=== PATIENT | female | born 1995 | race Caucasian/White ===

== ENCOUNTER → 2018-01-26 03:13 | Outpatient (CLI) | payer MEDICAID, SELFPAY ==
--- NOTE | 2018-01-26 14:29 | DI.REPORT_ITS ---
SYMPTOMS/DIAGNOSIS: SURVEY; H/O PTL OB ULTRASOUND: Many abnormalities cannot be diagnosed. A normal exam does not exclude a congenital anomaly. Radiology No. [id number] LMP: Exam Date: 01/26/18 [facility] wks days on EDC ([facility]) Confirmed: HISTORY: ---- PREDICTED GESTATIONAL AGE NUMBER 20+2 weeks with a range of 19+2 weeks to 21+2 weeks. 1 Determined by_X__1ST US___LMP___HISTORY PLACENTA PRESENTATION Grade I Cephalic_X__ Anterior_X__Posterior___ Breech____ Right Left Transverse(head right___ Fundal___Low-lying___Previa___ Transverse(head left___ Varying BIOMETRY AMNIOTIC FLUID BPD: 53 mm 22+1 weeks Normal HC: 199 mm 22 weeks AC: 161 mm 21+1 weeks FL: 37mm 21+6 weeks AMNIOTIC FLUID INDEX >26 WK CRL: mm weeks Cisterna Magna: NOT SEEN mm CI: 84 RUQ: LUQ Cerebellum: cm EFW: 435 grams Percentile: 97th RLQ: LLQ Total: cms Composite AGE= 21+6 wks EDC by US: 06/02/18 BIOPHYSICAL PROFILE ANATOMY IDENTIFIED SCORE 0/2 Heart: 4-Chamber_X__Rate:BPM 150 LVOT:____X RVOT:__X Amniotic Fluid(>2cms)____ Stomach:___X____ Kidneys:___X____ Respirations (>30 secs) Bladder:____X____ Post. Fossa: NOT SEEN Body Flex/Extension 3-vessel cord:_X Ventricles:___X Cord insertion:___X__ Lips: NOT SEEN Extremity Flex/Extension Spinal morphology:__X Nose: NOT SEEN Total Score= Palate:__X NS=not seen COMMENTS: Comparison is made with October,. The fetus is in cephalic position. The placenta is anterior. The biometric measurements correspond to 21 weeks 6 days and an EDC of May,. lips, nose and posterior fossa were not well seen. No abnormalities are identified. The cervical length measures 2.9 cm on transvaginal scanning. The os is closed.
== END ==
PROVIDERS: Visit Provider Advanced Practice Midwife
DX: O09.212 Supervision of pregnancy with history of pre-term labor, second trimester (principal)
CPT/HCPCS: 76805

== ENCOUNTER 2018-02-13 01:26 | Outpatient (CLI) | payer MEDICAID, SELFPAY ==
--- NOTE | 2018-02-13 10:53 | DI.US_ITS ---
SYMPTOMS/DIAGNOSIS: F/U TO BETTER VISUALIZE LIPS, NOSE AND POSTERIOR FOSSA, TO COMPLETE SURVEY OB ULTRASOUND: Today's ultrasound was performed utilizing limited protocol to evaluate posterior fossa structures and facial structures not well visualized on recent anomaly screen of 01/26/18. On today's examination these structures are visualized and within normal limits. Many abnormalities cannot be diagnosed. A normal exam does not exclude a congenital anomaly. Radiology No. [id number] LMP: Exam Date: 02/13/18 [facility] wks days on EDC ([facility]) 06/13/18 Confirmed: ---- PREDICTED GESTATIONAL AGE NUMBER 22+6 weeks with a range of 21+6 weeks to 23+6 weeks. 1 Determined by 1STUS X LMP___HISTORY Info. pertaining to fetus # PLACENTA PRESENTATION Grade I Cephalic X Anterior___Posterior___ Breech____ Right Left Transverse(head right___ Fundal___Low-lying___Previa___ Transverse(head left___ Varying BIOMETRY AMNIOTIC FLUID BPD: mm weeks Normal HC: mm weeks AC: mm weeks FL: mm weeks AMNIOTIC FLUID INDEX >26 WK CRL: mm weeks Cisterna Magna: 4 mm CI: RUQ: LUQ Cerebellum: 2.5 cm EFW: grams Percentile RLQ: LLQ Total: cms Composite AGE= wks EDC by US BIOPHYSICAL PROFILE ANATOMY IDENTIFIED SCORE 0/2 Heart: 4-Chamber X Rate: BPM LVOT: RVOT: Amniotic Fluid(>2cms)____ Stomach: X Kidneys: X Respirations (>30 secs) Bladder: X Post. Fossa: Body Flex/Extension 3 vessel cord: Ventricles: cord insertion: Lips: X Extremity Flex/Extension spinal morphology: Nose: X Total Score= Palate: NS=not seen
== END 2018-02-13 01:46 ==
PROVIDERS: Visit Provider Advanced Practice Midwife
DX: Z36.2 Encounter for other antenatal screening follow-up (principal); Z34.82 Encounter for supervision of other normal pregnancy, second trimester
CPT/HCPCS: 76815

== ENCOUNTER 2018-03-23 09:29 | Outpatient (CLI) | payer MEDICAID, SELFPAY ==
[2018-03-23 09:57] LABS: HCT 36.5 % (36.0-46.0); HGB 12.3 g/dL (12.0-15.5); Mean Corp. HGB Concentration 33.7 g/dL (32.0-36.0); Mean Corpuscular Hemoglobin 30.6 pg (27.0-33.0); Mean Corpuscular Volume 90.8 fL (80-95); Mean Platelet Volume 10.9 fL (8.0-11.0); Platelet Count 243 x1000/uL (130-400); RBC 4.02 m/cumm (4.00-5.20); RBC Distribution Width 12.6 % (11.7-14.6); White Blood Cell Count 9.61 k/cumm (4.4-10.8)
[2018-03-23 10:09] LABS: Glucose,1 Hr (Glucola) 123 mg/dL (80-140)
== END 2018-03-23 09:49 ==
PROVIDERS: Advanced Practice Midwife; Visit Provider Advanced Practice Midwife
DX: Z34.92 Encounter for supervision of normal pregnancy, unspecified, second trimester (principal)
CPT/HCPCS: 36415; 82950; 85027

== ENCOUNTER 2018-04-20 00:21 | Outpatient (CLI) | payer MEDICAID, SELFPAY ==
--- NOTE | 2018-04-20 09:24 | DI.US_ITS ---
Many abnormalities cannot be diagnosed. A normal exam does not exclude a congenital anomaly. Radiology No. LMP: 09/06/17 Exam Date: 04/20/18 [facility] wks days on EDC ([facility]) 06/13/18 Confirmed: HISTORY: F/U GROWTH, KARTIK, WT ---- PREDICTED GESTATIONAL AGE NUMBER 32.2 weeks with a range of 31.2 weeks to 33.2 weeks. 1 Determined by_X__1STUS___LMP___HISTORY Info. pertaining to fetus # PLACENTA PRESENTATION Grade I-II Cephalic__X_ Anterior_X_Posterior___ Breech____ Right Left Transverse(head right___ Fundal___Low-lying___Previa___ Transverse(head left___ Varying BIOMETRY AMNIOTIC FLUID BPD: 80 mm 31.6 weeks Normal HC: 291 mm 32.1 weeks AC: 276 mm 31.5 weeks FL: 62 mm 32 weeks AMNIOTIC FLUID INDEX >26 WK CRL: mm weeks Cisterna Magna: mm CI: 87 RUQ:__5.2____LUQ___2.6 Cerebellum: cm EFW: 1852 grams 27 th Percentile RLQ:__3.2___LLQ___4.2____ Total:___15.2____cms Composite AGE= 32 wks EDC by US__06/15/18 BIOPHYSICAL PROFILE ANATOMY IDENTIFIED SCORE 0/2 Heart: 4-Chamber___Rate:BPM___139__ LVOT: RVOT: Amniotic Fluid(>2cms)____ Stomach: Kidneys: Respirations (>30 secs) Bladder: Post. Fossa: Body Flex/Extension 3 vessel cord: Ventricles: cord insertion: Lips:____ Extremity Flex/Extension spinal morphology: Nose: Total Score= Palate: NS=not seen There is a single intrauterine gestation. Estimated sonographic age is 32 weeks. The fetus is in the cephalic presentation. heart rate is 139 beats per minute. A anatomic evaluation was not performed at this time. The placenta is anterior without evidence of previa. The estimated weight is 1852 grams which is the 27th percentile. Amniotic fluid index is 15.2 cm. Visually, amniotic fluid is within normal limits. IMPRESSION: Single living intrauterine gestation. Estimated sonographic age is 32 weeks.
== END 2018-04-20 00:41 ==
PROVIDERS: Visit Provider Advanced Practice Midwife
DX: Z34.93 Encounter for supervision of normal pregnancy, unspecified, third trimester (principal); Z36.2 Encounter for other antenatal screening follow-up
CPT/HCPCS: 76816

== ENCOUNTER 2018-04-25 09:23 | Inpatient (IN) | payer MEDICAID, SELFPAY ==
[2018-04-25 09:37] VITALS: BP 128/88; PULSE 112; RESP 22; TEMP 36.6; O2SAT 96
--- NOTE | 2018-04-25 09:39 | W.ED.GENAD ---
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 She has lower abdominal contractions on exam, no abdominal tenderness, no other complaints, denies vaginal bleeding or d/c. Labor and delivery contacted and pt will go there for further care Differential Diagnosis labor, benita fam HPI General Mode of arrival: wheelchair. Date/Time Provider Initiated Documentation: 04/25/18 09:28. Limitations to Documentation: no limitations. Information obtained by: patient. History of Present Illness 22 year old F presents to the emergency department with the chief complaint of lower abdominal contractions, described as moderate, with intensity rated at 6. Patient started experiencing this hour(s) (3) and it has been intermittent. No relieving factors improve symptom(s), No exacerbating factors reported . Patient notes no other symptoms.. Patient did receive the following treatments prior to arrival, none Related Data Home Medications Medication Instructions Recorded Confirmed acetaminophen 650 mg PO Q4H PRN #60 tab-cap 01/27/16 04/20/18 docusate sodium [Colace] 100 mg PO BID #20 cap 08/24/17 04/20/18 PNV cmb#95-ferrous fumarate-FA 1 tab-cap PO DAILY tab-cap 11/14/17 04/20/18 [ Formula Tablet] fluoxetine 20 mg capsule 20 mg PO DAILY #30 tab-cap 03/16/18 04/20/18 ondansetron 4 mg disintegrating 4 mg PO QID #20 tab 04/06/18 04/20/18 tablet Previous Rx's Medication Instructions Recorded docusate sodium [Colace] 100 mg PO BID #20 cap 08/24/17 fluoxetine 20 mg capsule 20 mg PO DAILY #30 tab-cap 03/16/18 ondansetron 4 mg disintegrating 4 mg PO QID #20 tab 04/06/18 tablet Allergies Allergy/AdvReac Type Severity Reaction Status Date / Time No Known Allergies Allergy Unverified 04/20/18 08:20 Review of Systems Review of Systems All systems reviewed & are unremarkable except as noted in HPI and below Constitutional Denies chills, Denies fever(s) and Denies weakness Eyes Denies loss of vision ENT Denies change in voice Cardiovascular Denies chest pain and Denies dyspnea Respiratory Denies dyspnea Gastrointestinal Denies vomiting Genitourinary Denies dysuria Neurologic Denies loss of vision and Denies weakness Psychiatric Denies depression [facility] Family History Father Diabetes Grandparent No problems noted. Mother Depression Brother No problems noted. Daughter No problems noted. Grandfather Neoplasm Grandmother Diabetes Heart disease Neoplasm Medical History Depression affecting , antepartum Hx of migraines (Resolved) Social History adopted: No number of children: 1 current occupational status: unemployed Smoking/Tobacco Use Status: Current-Occasional alcohol intake: current alcohol intake frequency: other substance use type: marijuana and other details: uses marajuana for back pain 08/27 special willam needs: No Surgical History Patent Ductus Arteriosus closure Tonsillectomy and adenoidectomy Exam Const General: no acute distress Orientation: alert [facility] Head: normal to inspection Ears: external ears normal General nose exam: external nose normal Mouth: moist mucous membranes Eyes General: appearance normal, both eyes and all related structures Neck Neck: normal visual inspection Resp Effort & Inspection: normal respiratory effort and able to speak in complete sentences Cardio Rate: regular rate GI Inspection: no abdominal wall ecchymosis Skin General skin exam: no rashes or lesions noted Neuro General: alert and oriented x3 Extrem General: normal to inspection Psych Mental Status: mental status grossly normal
--- NOTE | 2018-04-25 09:42 | ED.GENADUL_ITS ---
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 She has lower abdominal contractions on exam, no abdominal tenderness, no other complaints, denies vaginal bleeding or d/c. Labor and delivery contacted and pt will go there for further care Differential Diagnosis labor, benita fam HPI General Mode of arrival: wheelchair . Date/Time Provider Initiated Documentation: 04/25/18 09:28 . Limitations to Documentation: no limitations . Information obtained by: patient . History of Present Illness 22 year old F presents to the emergency department with the chief complaint of lower abdominal contractions, described as moderate, with intensity rated at 6. Patient started experiencing this hour(s) (3) and it has been intermittent. No relieving factors improve symptom(s), No exacerbating factors reported . Patient notes no other symptoms.. Patient did receive the following treatments prior to arrival, none Related Data Home Medications Medication Instructions Recorded Confirmed acetaminophen 650 mg PO Q4H PRN #60 tab-cap 01/27/16 04/20/18 docusate sodium [Colace] 100 mg PO BID #20 cap 08/24/17 04/20/18 PNV cmb#95-ferrous fumarate-FA 1 tab-cap PO DAILY tab-cap 11/14/17 04/20/18 [ Formula Tablet] fluoxetine 20 mg capsule 20 mg PO DAILY #30 tab-cap 03/16/18 04/20/18 ondansetron 4 mg disintegrating 4 mg PO QID #20 tab 04/06/18 04/20/18 tablet Previous Rx's Medication Instructions Recorded docusate sodium [Colace] 100 mg PO BID #20 cap 08/24/17 fluoxetine 20 mg capsule 20 mg PO DAILY #30 tab-cap 03/16/18 ondansetron 4 mg disintegrating 4 mg PO QID #20 tab 04/06/18 tablet Allergies Allergy/AdvReac Type Severity Reaction Status Date / Time No Known Allergies Allergy Unverified 04/20/18 08:20 Review of Systems Review of Systems All systems reviewed & are unremarkable except as noted in HPI and below Constitutional Denies chills, Denies fever(s) and Denies weakness Eyes Denies loss of vision ENT Denies change in voice Cardiovascular Denies chest pain and Denies dyspnea Respiratory Denies dyspnea Gastrointestinal Denies vomiting Genitourinary Denies dysuria Neurologic Denies loss of vision and Denies weakness Psychiatric Denies depression [facility] Family History Father Diabetes Grandparent No problems noted. Mother Depression Brother No problems noted. Daughter No problems noted. Grandfather Neoplasm Grandmother Diabetes Heart disease Neoplasm Medical History Depression affecting , antepartum Hx of migraines (Resolved) Social History adopted: No number of children: 1 current occupational status: unemployed Smoking/Tobacco Use Status: Current-Occasional alcohol intake: current alcohol intake frequency: other substance use type: marijuana and other details: uses marajuana for back pain special willam needs: No Surgical History Patent Ductus Arteriosus closure Tonsillectomy and adenoidectomy Exam Const General: no acute distress Orientation: alert [facility] Head: normal to inspection Ears: external ears normal General nose exam: external nose normal Mouth: moist mucous membranes Eyes General: appearance normal, both eyes and all related structures Neck Neck: normal visual inspection Resp Effort & Inspection: normal respiratory effort and able to speak in complete sentences Cardio Rate: regular rate GI Inspection: no abdominal wall ecchymosis Skin General skin exam: no rashes or lesions noted Neuro General: alert and oriented x3 Extrem General: normal to inspection Psych Mental Status: mental status grossly normal
--- NOTE | 2018-04-25 09:43 | NUR.NOTE ---
Pt. transferred to LnD at this time with Nurse Wire Mesh Filter Fabricator.
[2018-04-25] MEDS: Lactated Ringers 1,000 ML 150 ML IV (11:30)
[2018-04-25] MEDS: Betamet Acet/Betamet Na Ph Inj. 30 MG/5 ML 12 MG IM (11:39)
[2018-04-25 11:41] LABS: HCT 36.4 % (36.0-46.0); HGB 12.1 g/dL (12.0-15.5); Mean Corp. HGB Concentration 33.2 g/dL (32.0-36.0); Mean Corpuscular Hemoglobin 29.3 pg (27.0-33.0); Mean Corpuscular Volume 88.1 fL (80-95); Mean Platelet Volume 11.9 fL (8.0-11.0); Platelet Count 207 x1000/uL (130-400); RBC 4.13 m/cumm (4.00-5.20); RBC Distribution Width 12.5 % (11.7-14.6); White Blood Cell Count 10.41 k/cumm (4.4-10.8)
[2018-04-25 15:12] LABS: *AMPHETAMINES SCREEN URINE Negative (Negative); *BARBITURATES SCREEN URINE Negative (Negative); *BENZODIAZEPINES SCREEN URINE Negative (Negative); Cannabinoids THC Negative (Negative); Cocaine Screen,Urine Negative (Negative); METHADONE URINE SCREEN Negative (Negative); OPIATES URINE SCREEN Negative (Negative)
[2018-04-25 15:13] LABS: Tricyclic Antidepressants Negative (Negative)
== END 2018-04-25 15:00 | disposition short-term general hospital (02) | DRG 833 ==
LOC: ER 09:48 → OBS 10:40
PROVIDERS: Admitting Provider Advanced Practice Midwife; Emergency Provider Emergency Medicine; Visit Provider Advanced Practice Midwife
DX: O60.03 Preterm labor without delivery, third trimester (principal); Z3A.31 31 weeks gestation of pregnancy
CPT/HCPCS: 36415; 80307; 85027; 86850; 86900; 86901; 96365; 96366; 96372; 99285; 87081; 99282; G0378; J0702; J2540

== ENCOUNTER 2019-03-04 12:57 | Outpatient (CLI) | payer MEDICAID, SELFPAY ==
[2019-03-04 13:35] LABS: Abs Immature Grans 0.01 k/cumm (0.0-0.09); Absolute Basophil Count 0.01 k/cumm (0.0-0.2); Absolute Eosinophil Count 0.11 k/cumm (0.0-0.7); Absolute Lymphocyte Count 2.06 k/cumm (1.2-3.4); Absolute Monocyte Count 0.36 k/cumm (0.11-0.7); Absolute Neutrophil Count 3.09 k/cumm (1.2-6.7); Basophils % 0.2; HCT 39.5 % (36.0-46.0); Immature Grans % 0.2; Lymphocytes % 36.5; Mean Corp. HGB Concentration 32.9 g/dL (32.0-36.0); Mean Corpuscular Hemoglobin 28.2 pg (27.0-33.0); Mean Corpuscular Volume 85.7 fL (80-95); Mean Platelet Volume 9.9 fL (8.0-11.0); Monocytes % 6.4; Neutrophils % 54.7; Platelet Count 332 x1000/uL (130-400); RBC 4.61 m/cumm (4.00-5.20); RBC Distribution Width 14.9 % (11.7-14.6); White Blood Cell Count 5.64 k/cumm (4.4-10.8)
[2019-03-04 14:36] LABS: ESR 10 mm/hr (0-20)
[2019-03-05 12:10] LABS: Lyme Ab w Rflx to Lyme Confirm Negative
[2019-03-05 12:20] LABS: Syphilis Serology (RPR) Negative (Negative)
== END 2019-03-04 13:17 ==
PROVIDERS: Visit Provider Optometrist
DX: H46.10 Retrobulbar neuritis, unspecified eye (principal)
CPT/HCPCS: 36415; 85652; 85025; 86592; 86618

== ENCOUNTER 2019-12-02 11:44 | Outpatient (REF) | payer MEDICAID, SELFPAY ==
--- NOTE | 2019-12-02 11:00 | PAPFT_PTH ---
PATIENT: Aruna Friedman LOC: N U#:[id number] AGE/SX: 24/F ROOM: RE12/02/[address]: BALJEET Davila : 1995 BED: DIS: 12/02/2019 SPEC #: [id number] RECD: 12/02/19 12:58 STATUS: MARLENY REQ #: [id number] GERALDINE: 12/02/19 11:[address]: Siri Sanz DEPT: [facility] Cytology RECD BY: Yahaira Paulino ENTERED: 12/02/19 12:59 SP TYPE: PAPFT ELIZABETH DR: Tania Leos APRN Tissues: 1 - CX/ENDOCX FOR PAP SMEARS Procedures: PAP THIN PREP/UVM Screening Comments: [id number]
[2019-12-04 07:16] LABS: Chlamydia Result Negative (Negative); GC Result Negative (Negative)
== END 2019-12-02 12:04 ==
LOC: LBN 11:44
PROVIDERS: Visit Provider Nurse Practitioner Family
DX: Z11.3 Encounter for screening for infections with a predominantly sexual mode of transmission (principal); Z12.4 Encounter for screening for malignant neoplasm of cervix
CPT/HCPCS: 87491; 87591; 88142

== ENCOUNTER 2020-12-22 03:59 | Outpatient (CLI) | payer MEDICAID, SELFPAY ==
[2020-12-22 15:39] LABS: Abs Immature Grans 0.04 10^3/uL (0.0-0.06); Absolute Basophil Count 0.02 10^3/uL (0.0-0.2); Absolute Eosinophil Count 0.08 10^3/uL (0.0-0.7); Absolute Lymphocyte Count 2.65 10^3/uL (1.2-3.4); Absolute Monocyte Count 0.54 10^3/uL (0.1-0.8); Absolute Neutrophil Count 6.56 10^3/uL (1.2-6.7); Basophils % 0.2; Eosinophils % 0.8; HCT 38.2 % (36.0-46.0); HGB 12.9 g/dL (11.2-15.7); Immature Grans % 0.4; Lymphocytes % 26.8; MCHC 33.8 % (32.0-36.0); MCV 88.8 fL (80-95); MPV 9.9 fL (8.0-11.0); Monocytes % 5.5; Neutrophils % 66.3; Nucleated RBC 0 %; Platelet Count 285 10^3/uL (130-400); RDW-SD 42.3 fL; WBC 9.89 10^3/uL (4.4-10.8)
[2020-12-22 16:18] LABS: ALT 27 U/L (14-59); AST 13 U/L (15-37); Albumin 3.4 g/dL (3.4-5.0); Alkaline Phosphatase 82 U/L (46-116); Anion Gap 12.5 mmol/L (3-11); BUN 15 mg/dL (7-18); Bilirubin, Total 0.4 mg/dL (0.2-1.0); CO2 23.5 mmol/L (21.0-32.0); CREATININE 0.5 mg/dL (0.55-1.02); Calcium 9.1 mg/dL (8.5-10.1); Chloride 103 mmol/L (98-107); Glucose 83 mg/dL (74-106); Sodium 139 mmol/L (136-145); Total Protein 7.1 g/dL (6.4-8.2)
[2020-12-23 09:24] LABS: Hepatitis B Surface Ag Negative (Negative)
[2020-12-23 09:52] LABS: Hepatitis C Ab w Rflx HCV PCR Negative (Negative)
[2020-12-23 10:07] LABS: Rubella IgG Ab (UVM) Positive (See Note); Varicella IgG Antibody Negative (See Note)
[2020-12-23 10:16] LABS: HIV-1/2 Ag & Ab Screen Negative (Negative)
[2020-12-24 12:08] LABS: Syphilis Total Ab w/Reflex Nonreactive (Nonreactive)
== END 2020-12-22 04:00 | disposition home or self-care (01) ==
PROVIDERS: Advanced Practice Midwife; Visit Provider Advanced Practice Midwife
DX: Z34.91 Encounter for supervision of normal pregnancy, unspecified, first trimester (principal); Z11.4 Encounter for screening for human immunodeficiency virus [HIV]; Z11.59 Encounter for screening for other viral diseases; Z01.84 Encounter for antibody response examination; Z00.00 Encounter for general adult medical examination without abnormal findings; F32.9 Major depressive disorder, single episode, unspecified
CPT/HCPCS: 36415; 80053; 86787; 86803; 86850; 86900; 86901; 87340; 87389; 85025; 86762; 86780

== ENCOUNTER 2020-12-22 20:33 | Outpatient (REF) | payer MEDICAID, SELFPAY ==
[2020-12-22 16:55] LABS: *AMPHETAMINES SCREEN URINE Negative (Negative); *BARBITURATES SCREEN URINE Negative (Negative); *BENZODIAZEPINES SCREEN URINE Negative (Negative); Cannabinoids THC Negative (Negative); Cocaine Screen,Urine Negative (Negative); METHADONE URINE SCREEN Negative (Negative); OPIATES URINE SCREEN Negative (Negative)
[2020-12-22 17:01] LABS: Tricyclic Antidepressants Negative (Negative)
[2020-12-23 15:25] LABS: Chlamydia Result Negative (Negative); GC Result Negative (Negative)
[2020-12-25 09:00] LABS: Buprenorphine Negative ng/mL (Cutoff: 5.0); Norbuprenorphine Negative ng/mL (Cutoff: 2.5)
--- NOTE | 2021-01-28 15:19 | W.NUTCONSULT ---
Date of service: 01/28/21 Time of Service: 15:19 Nutritional Consult ASSESSMENT: Aruna referred for Medical Nutrition Therapy for GDM. She currently takes NPH insulin 4 units Am and PM. She reports fasting sugars in 100s, does not write down. Meal plan erratic, often skips meals, relies on convenience foods. Attempted to provide diet education for GDM management however not successful. Other more pressing issues at this time for her. She is doing well coming to appt.s and taking insulin. Encouraged her to continue. NUTRITIONAL DIAGNOSIS: Gestational Diabetes INTERVENTION: Encouraged well balanced meals with focus on complex carbs, lean protein and healthy fats, regular meal times and log blood sugars. recommend increasing PM insulin. MONITORING AND EVALUATION: will be available prn. Pt has contact information. Time Spent in Nutritional Counseling and Treatment: 10 min
== END 2020-12-22 20:34 | disposition home or self-care (01) ==
LOC: LBN 20:33
PROVIDERS: Visit Provider Advanced Practice Midwife
DX: Z34.91 Encounter for supervision of normal pregnancy, unspecified, first trimester (principal); Z11.3 Encounter for screening for infections with a predominantly sexual mode of transmission; Z3A.10 10 weeks gestation of pregnancy
CPT/HCPCS: 80307; 87491; 87591; 87086; 87480; 87510; 87660

== ENCOUNTER 2021-03-30 13:42 | Outpatient (CLI) | payer MEDICAID, SELFPAY ==
--- NOTE | 2021-03-30 11:00 | NS.NUTBLAN_ITS ---
Aruna was referred to Medical Nutrition Therapy for gestational diabetes diagnosed at 16 weeks. Aruna is 24 weeks today and reports not checking her blood sugars very often. She does report many of her fasting sugars are between 100-200. Aruna takes NPH insulin as prescribed. Her diet remains erratic and she has had difficulty prioritizing healthy eating during this . Weight gain wnl. Met with Aruna today during visit with Dr. Diaz and reviewed benefits of a dexcom 6 continuous glucose monitor for daily blood sugar monitoring. She was agreeable to have one placed today and accepted the data sharing option with [facility]. Dexcom 6 CGM placed, Dexcom 6 merlene installed in Aruna's phone and Aruna accepted invitation to share her glycemic data with publicity writer. Follow up scheduled at next clinic visit next week.
== END 2021-03-30 13:43 | disposition home or self-care (01) ==
LOC: DS 13:46
PROVIDERS: Visit Provider Dietitian, Registered
DX: O24.414 Gestational diabetes mellitus in pregnancy, insulin controlled (principal); Z3A.24 24 weeks gestation of pregnancy; Z71.3 Dietary counseling and surveillance
CPT/HCPCS: 97802

== ENCOUNTER 2021-04-13 07:00 | Outpatient (CLI) | payer MEDICAID, SELFPAY ==
--- NOTE | 2021-04-13 13:00 | NS.NUTBLAN_ITS ---
Met with Aruna at [facility] to replace sensor. Continuous Glucose Monitor reports elevated levels in AM (up to 140 mg/dl). Aruna cannot remember when she had breakfast. Showed Aruna how to add in meal time to glucose reports to include meal time. If fasting sugars > 95 mg/dl, will need to add more insulin at HS. Meals include mostly convenience foods. Shops mostly at [employer] and [employer]. Attempted to provide examples of balanced meals she can purchase at [employer]. Expect that Aruna will have difficulty changing her eating habits to regular blood sugars and most likely will need more insluin going forward BID. Will follow up at next [facility] visit or prn.
== END 2021-04-13 07:01 | disposition home or self-care (01) ==
LOC: DS 04-14 16:04
PROVIDERS: Visit Provider Dietitian, Registered
DX: O24.414 Gestational diabetes mellitus in pregnancy, insulin controlled (principal); Z3A.26 26 weeks gestation of pregnancy; Z71.3 Dietary counseling and surveillance
CPT/HCPCS: 97803

== ENCOUNTER 2021-04-19 03:50 | Outpatient (CLI) | payer MEDICAID, SELFPAY ==
[2021-04-19 14:11] LABS: HGB 11.6 g/dL (11.2-15.7); MCH 29.9 pg (27.0-33.0); MCHC 33.1 % (32.0-36.0); MCV 90.2 fL (80-95); MPV 10.1 fL (8.0-11.0); Platelet Count 281 10^3/uL (130-400); RBC 3.88 10^6/uL (3.93-5.22); RDW 12.6 % (11.7-14.6); RDW-SD 41.4 fL; WBC 13.32 10^3/uL (4.4-10.8)
[2021-04-19 14:25] LABS: Hemoglobin A1C 4.8 % (<5.7)
--- NOTE | 2021-04-29 13:24 | DIABASSESS_ITS ---
Date of service: 04/29/21 Time of Service: 13:25 Diabetes Note NOTE: Met with Aruna at [facility]. She was able to successfully place her Dexcom 6 sensor herself and reattach transmitter. She opted to place it on her thigh- readings appear consistent with upper arm readings. She has not been able to change her eating habits however, glycemic reports indicate blood sugars relatively well controlled. Continues to have high post prandial levels, but most likely due this week from stopping AM NPH. Dr. Miller and self educated Aruna on importance of taking NPH AM and PM as prescribed. Glycemic report for last 7 days scanned into chart. Will continue to follow and support through her . Time Spent in Nutritional Counseling and Treatment: 10
== END 2021-04-19 03:51 | disposition home or self-care (01) ==
LOC: LBO 03:50
PROVIDERS: Obstetrics & Gynecology Gynecology; Visit Provider Obstetrics & Gynecology
DX: O24.414 Gestational diabetes mellitus in pregnancy, insulin controlled (principal)
CPT/HCPCS: 36415; 85027; 83036

== ENCOUNTER 2021-05-03 01:29 | Outpatient (CLI) | payer MEDICAID, SELFPAY ==
--- NOTE | 2021-05-03 07:30 | DI.US_ITS ---
Exam(s) US OB KARTIK WEIGHT EXAM: US OB KARTIK WEIGHT CLINICAL HISTORY: growth in pt with diabetes,Z34.83. TECHNIQUE: Transabdominal obstetrical ultrasound performed. COMPARISON: No exams were available for comparison FINDINGS:: Number of fetuses: One. position: Vertex. Placental location: Posterior. No evidence of previa. BIOMETRIC DATA: BPD: 74mm = 29+ 6 weeks HC: 272mm = 29+ 4 weeks AC: 242mm = 28+ 3 weeks FL: 56 mm = 29+ 3 weeks EFW: 1318 Gms = 23% Composite Age: 29+ 2 EDC: 17 July 2021 Heart Rate: 126 BPM Amniotic fluid index: 14.7 cm. Amount of fluid is within normal limits. IMPRESSION: size and weight are within the expected range. DATA REPOSITORY:
== END 2021-05-03 01:49 ==
PROVIDERS: Visit Provider Obstetrics & Gynecology Gynecology
DX: O24.113 Pre-existing type 2 diabetes mellitus, in pregnancy, third trimester (principal)
CPT/HCPCS: 76816

== ENCOUNTER 2021-05-05 02:23 | Outpatient (CLI) | payer MEDICAID, SELFPAY ==
[2021-05-05 13:44] LABS: HCT 36.6 % (36.0-46.0); MCH 29.8 pg (27.0-33.0); MCHC 32.8 % (32.0-36.0); MCV 90.8 fL (80-95); Platelet Count 326 10^3/uL (130-400); RBC 4.03 10^6/uL (3.93-5.22); RDW 12.5 % (11.7-14.6); RDW-SD 41.5 fL; WBC 13.02 10^3/uL (4.4-10.8)
== END 2021-05-05 02:24 | disposition home or self-care (01) ==
LOC: LBO 02:23
PROVIDERS: Visit Provider Obstetrics & Gynecology Gynecology
DX: O24.414 Gestational diabetes mellitus in pregnancy, insulin controlled (principal)
CPT/HCPCS: 36415; 85027

== ENCOUNTER 2021-05-09 08:11 | Outpatient (CLI) | payer MEDICAID, SELFPAY ==
--- NOTE | 2021-10-28 08:11 | W.OBNST ---
Date of service: 10/28/21 Time of Service: 07:11 NST Evaluation Reason for NST Reasons for Nonstress Test: FALSE LABOR Vital Signs Blood Pressure: 115/77 Pulse: 126 Temperature: 98.6 F NST Information Date on Monitor: 05/09/21 Time on Monitor: 08:58 Date off Monitor: 05/09/21 Time off Monitor: 09:30 Total Time on Monitor: 32 NST Interventions: IV Fluids Contraction Frequency: none NST Evaluation Patient States Movement: Present FHR Baseline: 130 Variability: Moderate 6-25 bpm Accelerations: 10x10 Decelerations: None NST Results: Reactive Note NST Note Note: Pt presented to ED with report of abdominal pain - generalized discomfort. SVE by Dr. Rodrigez performed: VTX, cervix closed, anterior. fibronection obtained and was negative. NST Reviewed and Verified by: So Miller
[2021-10-28 22:05] VITALS: BP 115/77; PULSE 126; TEMP 37
== END 2021-05-09 08:12 | disposition home or self-care (01) ==
PROVIDERS: Visit Provider Advanced Practice Midwife
DX: O60.03 Preterm labor without delivery, third trimester (principal)
CPT/HCPCS: 59025; G0378

== ENCOUNTER 2021-05-09 08:39 | Observation (INO) | payer MEDICAID, SELFPAY ==
[2021-05-09 08:56] VITALS: BP 115/77; PULSE 126; TEMP 37
[2021-05-09] MEDS: Lactated Ringers 1,000 ML 125 ML IV (09:45)
[2021-05-09 11:08] LABS: Bilirubin Negative (Negative); Blood Negative (Negative); Clarity Clear (Clear); Glucose Negative (Negative); Ketones Negative (Negative); Leukocyte Esterase Trace (Negative); Nitrite Negative (Negative); Specific Gravity 1.025 (1.005-1.025); Urobilinogen 0.2 EU/dL (Up TO 0.2)
[2021-05-09 11:10] LABS: Fetal Fibronectin Negative (Negative)
[2021-05-09 11:30] LABS: Epithelial Cells Moderate HPF (Negative); RBC 0-2 HPF (0-2)
[2021-05-09 11:31] LABS: Bacteria Moderate HPF (Negative); C & S Indicated? No/Sq. Contamination; Casts Negative LPF (Negative); Crystals Negative HPF (Negative); Mucus Negative (Negative); Other Cells Rare Renal (Negative)
--- NOTE | 2021-05-12 15:11 | W.PM.OBHPL1 ---
Date of service: 05/09/21 Time of Service: 12:00 Assessment and Plan Assessment and plan (1) History of delivery, currently : Status: Acute Assessment and plan: Pt unlikely to be in labor at this time with closed cervix and negative FFN. However she is an increased risk due to her history and should return to the office this week for f/u. Also reviewed when to call for possible labor. OB-HPI Labor/Delivery History of Present Illness Reason for Visit: CONTRACTIONS Chief Complaint: Other (Pressure). CHRISTIANO Calculator Estimated Delivery Date Method Current WG Current Estimate 07/16/21 LMP (Certain) 30w 5d Other Estimates 07/14/21 Ultrasound #1 31w 0d History of Present Expected Delivery Route/Plan - CNM, @ 12 wks: to service for hx 34 wk PTD x2 & pre-gest DM FOB is unknown. Planned name: Rissa/ Karena. Varicella Non-Immune, vaccine Specific Issues/Plan 1. Impairment of comprehension. Does not have custody of her other children. RADHA involved. Has press cleaner drive her to [employer]. 03/26/21. Moved out of mother's house. Living with dam worker Linda in [place]. Aydee is home health RN. 3. Hx delivery @ 34 wks x2 @ [facility], and hx maternal ductus arteriosis w/surgical repair, 01/12/21 [facility] MFM visit. 02/19/21 cervical length 3.1cm. 03/18/21 cervical length 2.7cm. No additional measurements needed. 4. BV+ at initial OB, Rx Flagyl 500 mg PO BID x7 days 5. Known CF negative, [place] result low prob x3. 02/19/21 [facility]. No f/u needed. 6. Varicella non immune, pt made aware and accepts vaccine 7. Pregestational DM, has CGM. Referal sent to [facility] for assistance with insulin injections (04/21). - 04/07/21. Novolin-N 18units @ [facility]. 14 units @ am. has continuous glucose monitor. - Growth u/s 05/03/21 @ 29w3d: EFW 23%tile. KARTIK 14.7cm. 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) Umbilical abnormality (Acute 06/29/16) Insomnia (Acute 07/25/17) Increased BMI (body mass index) (Chronic 08/24/17) Depressive disorder (Chronic 06/21/13) Chronic midline low back pain without sciatica (Chronic 08/24/17) Attention deficit hyperactivity disorder (Chronic 10/31/12) Medical History (Updated 05/12/21 @ 16:39 by Alma Rodrigez MD) Hx of migraines Maternal varicella, non-immune Surgical History Patent Ductus Arteriosus closure Tonsillectomy and adenoidectomy 2002 Family History Father Diabetes Maternal Grandfather , age 41 Brain cancer Mother Depression Brother , born at 5 months No problems noted. Daughter No problems noted. Paternal Grandfather No problems noted. Maternal Grandmother , age 74 Diabetes Heart disease Cervix cancer Stroke Brain cancer Lymph node cancer Paternal Grandmother No problems noted. Social History Smoking/Tobacco Use Status: Former Tobacco Use tobacco type: cigarettes Quit Date: 11/08/20 Tobacco: How many years used: 9 Quit status: has quit before Second Hand Exposure: Yes Smoking risk assessment performed?: Yes Alcohol Intake: former Counseling provided: provider counseling Details: Occasional binge drinking - counselled Drug use: Never Substance use type: marijuana Adopted: No Household members: family and other Details: lives with mother. Has supervised visitation with her son. No contact daugh Housing: apartment Number of Children: 2 Do you need help understanding health information?: Never current occupation: Disabled. Pets and animals: Yes Pets and animals: dog(s) Sexually active: Yes Do you think of yourself as: straight/heterosexual Current gender identity: female What is your relationship status?: never How often do you talk on the phone with friends or family?: never How often do you get together with friends or relatives?: once per week How often do you attend evangelical or protestant services?: 1-3 times per year Do you belong to any clubs or organized social groups?: no Panel score (0-1 are the most socially isolated patients): 0 Duration: < 15 minutes/day Frequency: 1-2 times per week Evangelina/Jain: No preference Seatbelt use: sometimes Helmet use: No Drive intox or ride w/intox day haul or farm charter bus driver: No Do you feel safe in your relationship?: Yes History History 2 Para 2 Hx # Term Pregnancies 0 Multiple births 0 Hx # Pregnancies 2 Ectopic pregnancies 0 AB induced 0 Hx Number of Living Children 2 AB spontaneous 0 Past Pregnancies Del. Date GA/Weeks # Outcome Route Wgt Sex Labor Lgth Anesthesia Location [facility] 07/20/16 34 Successful vaginal 5 lb 8 oz Female [facility] 05/06/18 34 No Successful vaginal 4 lb 11.8 oz Male [facility] Delivery Date: 07/20/16 PPROM, IOL with Pitocin, pt does not have custody. Tiff Nicolas Delivery Date: 05/06/18 Does not have custody. So Miller Allergies and Home Medications Allergies Allergy/AdvReac Type Severity Reaction Status Date / Time No Known Allergies Allergy Verified 05/05/21 12:44 Home Medications Medication Instructions Recorded Confirmed Type acetaminophen 650 mg PO Q4H PRN #60 tab-cap 01/27/16 05/05/21 History melatonin 3 mg capsule 3 mg PO DAILY PRN #90 cap 11/07/19 05/05/21 Rx hydroxyzine HCl 25 mg tablet 25 mg PO BID PRN #30 tab 09/09/20 05/05/21 Rx loratadine 10 mg tablet 10 mg PO DAILY #90 tab 12/18/20 05/05/21 Rx fluoxetine 20 mg capsule 20 mg PO DAILY #90 cap 12/22/20 05/05/21 Rx fluoxetine 40 mg capsule 40 mg PO DAILY #90 cap 03/05/21 05/05/21 Rx pen needle, diabetic 31 gauge x #100 ea 03/30/21 05/05/21 Rx 1/4 blood-glucose sensor #3 ea 04/08/21 05/05/21 Rx albuterol sulfate 90 mcg/actuation 2 inh INHALATION Q4H PRN #18 g 04/14/21 05/05/21 Rx aerosol inhaler insulin NPH isoph U-100 human 100 See Rx Instructions SUBCUT 04/14/21 05/05/21 Rx unit/mL (3 mL) subcutaneous pen .COMPLEX #15 ml Exam Constitutional Constitutional: no acute distress and cooperative Detailed Labor and Delivery Exam Dilation: 0 Cervix position: anterior Consistency: medium Whyte Score: Cervical Points Exam 0 1 2 3 Dilation Closed 1-2cm 3-4 cm 5-6cm Effacement 0-30% 40-50% 60-70% 80% Consistency Firm Medium Soft Station -3 -2 -1,0 +1,+2 Position Posterior Mid Anterior Amniotic Membrane Status: Intact Contraction Frequency(min): irregular Contraction Intensity: Mild Comments: FFN collected and negative Fetus A Heart Rate Baseline: 140 Monitor Accelerations: 10 X 10 Monitor Decelerations: None Variability: Moderate (6-25 BPM) Detailed HEENT Exam Head: Present normocephalic and atraumatic Respiratory Exam Respiratory Exam: Normal Detailed Neurological Exam Neurological: Present alert, oriented X3 and CN II-XII intact Results Abnormal Lab Findings: Abnormal Labs 05/09/21 10:45 Ur Leukocyte Esterase Trace H Risk Assessment Risk for Shoulder Dystocia Historical/Initial OB: POSITIVE FOR: Pre- BMI>30; NEGATIVE FOR: Pelvic Abnormality, Previous Shoulder Dystocia or Previous Macrosomia Counseling: cannot do early glucola but will do fingerstick, glucometer ordered at initial Risk for Pre-Eclampsia Yes, if one or more: NEGATIVE FOR: Hx Pre-E/Gest HTN, Chronic HTN, Multiple Gestation, Pre-gestational DM, Renal Disease, Systemic Lupus or APA Syndrome Yes, if 2 or more: POSITIVE FOR: BMI>30; NEGATIVE FOR: Nulliparity, Age>= 35 yrs, >10yr btwn pregnancies, ethinicty, Mother/Sister w/ Pre-E or Previous IUGR Risk for Post- Hemorrhage Initial: NEGATIVE FOR: Multiple Gestation, Previous PPH, Known Clotting Deficiency, Grand Multiparity or Anticoagulation Counseled re: Active Management: Yes Risks Reviewed Risks Reviewed Upon Admission: Yes
== END 2021-05-09 13:05 | disposition home or self-care (01) | DRG 833 ==
LOC: ER 08:44 → OBS 08:54
PROVIDERS: Obstetrics & Gynecology; Admitting Provider Advanced Practice Midwife; Emergency Provider Emergency Medicine; Visit Provider Advanced Practice Midwife
DX: O47.03 False labor before 37 completed weeks of gestation, third trimester (principal); O09.213 Supervision of pregnancy with history of pre-term labor, third trimester; Z3A.30 30 weeks gestation of pregnancy
CPT/HCPCS: 81003; 81015; 82731; G0378

== ENCOUNTER 2021-05-18 07:59 | Outpatient (CLI) | payer MEDICAID, SELFPAY ==
[2021-05-18 11:16] VITALS: BP 123/67; PULSE 88; TEMP 37.1
[2021-05-18 11:39] VITALS: BP 123/67; PULSE 88
[2021-05-18] MEDS: Betamet Acet/Betamet Na Ph Inj. 30 MG/5 ML 12 MG IM (12:25)
== END 2021-05-18 12:37 | disposition home or self-care (01) ==
LOC: BCD 08:01 → OBS 11:14
PROVIDERS: Visit Provider Obstetrics & Gynecology Gynecology
DX: O09.893 Supervision of other high risk pregnancies, third trimester (principal); Z87.51 Personal history of pre-term labor
CPT/HCPCS: 96372; 59025; J0702

== ENCOUNTER 2021-05-19 07:40 | Outpatient (CLI) | payer MEDICAID, SELFPAY ==
[2021-05-19 11:15] VITALS: BP 113/73; PULSE 103; RESP 16; TEMP 36.7; O2SAT 95
[2021-05-19] MEDS: Betamet Acet/Betamet Na Ph Inj. 30 MG/5 ML 12 MG IM (11:35)
== END 2021-05-19 07:41 | disposition home or self-care (01) ==
PROVIDERS: Visit Provider Obstetrics & Gynecology
DX: O99.893 Other specified diseases and conditions complicating puerperium (principal); Z87.51 Personal history of pre-term labor
CPT/HCPCS: 96372; J0702

== ENCOUNTER 2021-05-25 05:29 | Outpatient (CLI) | payer MEDICAID, SELFPAY ==
[2021-05-25 11:00] VITALS: BP 135/60; PULSE 121
[2021-05-25 12:23] VITALS: BP 135/60; PULSE 121; TEMP 36.7
[2021-05-25 12:44] LABS: Fetal Fibronectin Negative (Negative)
[2021-05-25 14:09] VITALS: BP 135/60; PULSE 121; TEMP 36.7
--- NOTE | 2021-05-25 15:00 | W.OBNST ---
Date of service: 05/25/21 Time of Service: 15:00 NST Evaluation Reason for NST Reasons for Nonstress Test: GDM-INSULIN Gestational Age Gestational Age in Weeks and Days: 32 Weeks and 4Days Test and Monitor Explained Test/Monitor Explained: Test Explained, Monitor Explained and Patient Verbalized Understanding Vital Signs Blood Pressure: 135/60 Pulse: 121 Temperature: 98.1 F Urine Results Urine Protein: Negative Urine Ketones: Negative Urine Glucose: Negative Urine Blood: Negative NST Information Date on Monitor: 05/25/21 Time on Monitor: 11:52 Date off Monitor: 05/25/21 Time off Monitor: 13:40 Total Time on Monitor: 108 NST Interventions: PO Hydration NST Evaluation Patient States Movement: Present FHR Baseline: 125 Variability: Moderate 6-25 bpm Accelerations: None Decelerations: None NST Results: Non-Reactive Note Biophysical Profile (8:10), KARTIK (12.7) and Presentation (Vertex) NST Note Note: Patient has a nonreactive nonstress test today. Biophysical profile was performed at the bedside confirming 8 out of 10, KARTIK equals 12.7. Fetus is vertex. 2 for tone, 2 for breathing, 2 for movement. As of note, patient was having mild uterine contractions with no cervical change. fibronectin is negative. She will follow-up as scheduled for her next visit and ultrasound. NST Reviewed and Verified by: gilda Vásquez
[2021-05-25 15:02] VITALS: BP 135/60; PULSE 121; TEMP 36.7
== END 2021-05-25 13:51 | disposition home or self-care (01) ==
LOC: BCD 05:31 → OBS 10:52
PROVIDERS: Visit Provider Obstetrics & Gynecology
DX: O24.414 Gestational diabetes mellitus in pregnancy, insulin controlled (principal); Z3A.32 32 weeks gestation of pregnancy
CPT/HCPCS: 59025; 82731; 87081

== ENCOUNTER 2021-05-27 01:57 | Outpatient (CLI) | payer MEDICAID, SELFPAY ==
--- NOTE | 2021-05-27 07:45 | DI.US_ITS ---
Exam(s) US OB KARTIK WEIGHT EXAM: US OB KARTIK WEIGHT CLINICAL HISTORY: growth and wt,gdm requiring insulin,O24.419. TECHNIQUE: Transabdominal obstetrical ultrasound was performed. COMPARISON: US US OB KARTIK WEIGHT from 05/03/2021 FINDINGS: There is a single viable intrauterine gestation with cardiac activity identified-132 bpm The fetus is presently in cephalic position . Amniotic fluid: There is a normal amount of amniotic fluid with an KARTIK of 18.0cm. Placental location: The placenta is posterior grade 1,with no evidence of placenta previa. Dating parameters place this at approximately 32 weeks and 2 days gestational age, implying CHRISTIANO of July 20, 2021. BPD measures 33 weeks and 3 days HC measures 32 weeks and 2 days AC measures 32 weeks and 0 days FL measures 31 weeks and 4 days Estimated weight is 1886 gm-4 pounds 3 ounces Fetus is at the 18th percentile on the Hadlock scale. IMPRESSION:: Viable 3rd trimester gestation, as described above. Fetus is at the 18th percentile on the Hadlock scale. Placenta is posterior. No placenta previa. There is a normal amount of amniotic fluid evident. DATA REPOSITORY:
== END 2021-05-27 02:17 ==
PROVIDERS: Visit Provider Obstetrics & Gynecology Gynecology
DX: O24.414 Gestational diabetes mellitus in pregnancy, insulin controlled (principal); Z3A.32 32 weeks gestation of pregnancy
CPT/HCPCS: 76816

== ENCOUNTER 2021-05-28 08:30 | Outpatient (CLI) | payer MEDICAID, SELFPAY | END 2021-05-28 08:31 | disposition home or self-care (01) | LOC: BCD 08:31 | PROVIDERS: Visit Provider Obstetrics & Gynecology | DX: Z53.8 Procedure and treatment not carried out for other reasons (principal) ==

== ENCOUNTER 2021-06-01 09:30 | Outpatient (CLI) | payer MEDICAID, SELFPAY ==
[2021-06-01 11:14] VITALS: BP 109/68; PULSE 93; TEMP 36.8
[2021-06-01 11:17] VITALS: BP 109/68; PULSE 93
--- NOTE | 2021-06-01 12:21 | W.OBNST ---
Date of service: 06/01/21 Time of Service: 12:21 NST Evaluation Reason for NST Reasons for Nonstress Test: GDM-INSULIN Gestational Age Gestational Age in Weeks and Days: 33 Weeks and 4Days Test and Monitor Explained Test/Monitor Explained: Test Explained, Monitor Explained and Patient Verbalized Understanding Vital Signs Blood Pressure: 109/68 Pulse: 93 Temperature: 98.2 F NST Information Date on Monitor: 06/01/21 Time on Monitor: 11:10 Date off Monitor: 06/01/21 Time off Monitor: 11:35 Total Time on Monitor: 25 NST Interventions: PO Hydration NST Evaluation Patient States Movement: Present FHR Baseline: 140 Variability: Moderate 6-25 bpm NST Results: Non-Reactive Note Biophysical Profile (NST with moderate variability, nonreactive due to lack of accelerations) Results of Biophysical Profile: 8 out of 10. Tone=2. Movement= 2. Breathing= 2. KARTIK= 2. Total amniotic fluid index is 14.4. NST Note Note: Patient seen on the center for surveillance. Moderate variability. No appropriate accelerations. Baby audibly active. Occasional irregular contractions. Bedside biophysical profile performed with a biophysical of 8 out of 10. Cervical exam at patient's request, 1 cm, 50%, -3 station. Will have nonstress test performed Monday. NST Reviewed and Verified by: Candida Vásquez
[2021-06-01 12:23] VITALS: BP 109/68; PULSE 93; TEMP 36.8
== END 2021-06-01 11:56 | disposition home or self-care (01) ==
LOC: BCD 09:32 → OBS 11:14
PROVIDERS: Visit Provider Obstetrics & Gynecology
DX: O24.414 Gestational diabetes mellitus in pregnancy, insulin controlled (principal); Z3A.33 33 weeks gestation of pregnancy; Z36.89 Encounter for other specified antenatal screening
CPT/HCPCS: 59025

== ENCOUNTER 2021-06-03 08:31 | Observation (INO) | payer MEDICAID, SELFPAY ==
[2021-06-03 08:33] VITALS: BP 119/77; PULSE 110; RESP 16; TEMP 36.8
[2021-06-03 08:38] VITALS: BP 119/77; PULSE 110
[2021-06-03] MEDS: Insulin NPH-Human 300 UNITS/3 ML PEN 14 UNIT SC (09:38)
--- NOTE | 2021-06-03 10:56 | W.PM.DS.N ---
Date of service: 06/03/21 Time of Service: 10:56 DS: Diagnosis Discharge Diagnosis (1) History of delivery, currently : Status: Acute (2) Encounter for supervision of other normal , third trimester: Status: Acute (3) Discomfort during : Status: Acute (4) Gestational diabetes: Status: Acute Discharge Plan Disposition Patient Disposition: HOME Condition: Fair Discharge Details Reason For Visit: R/O LABOR Admit Date/Time: 06/03/21 08:31 Admit Provider: So Miller Attending Provider: So Miller Primary Care Provider: Tania Leos Hospital Course Hospital Course: Patient is currently 33w6d EGA and has been seen twice weekly for NSTs secondary to insulin requiring gestational diabetes. She woke this morning feeling pressure and constant pain in her vagina and requested an evaluation. Upon arrival to the center her cervical exam was fingertip dilated 75% effaced soft mid position 0 station vertex. Patient was having occasional contractions on external tocometer and was feeling significant discomfort with movement. NST was reactive category 1 tracing. Preprandial capillary blood glucose was 90. Postprandial 1 hour glucose is pending. She received 14 units of Novolin-N for her standard morning insulin dose. After 2 hours of observation cervical exam had not changed there was some bloody discharge on my exam glove I felt it was secondary to my previous exam. She was given discharge instructions and told to call the office in the event of change in contractions. She will follow-up on 06/07/2021 for a repeat NST. Home Meds and New Rx's Prescriptions: No Action fluoxetine 20 mg capsule 20 mg PO DAILY Qty: 90 RF: 3 (DME) Dexcom G6 Sensor Device See Rx Instructions .ROUTE .MEDSUPPLY Qty: 3 RF: 3 albuterol sulfate 90 mcg/actuation HFA aerosol inhaler 2 inh inhalation Q4H PRN (Reason: shortness of breath or wheezing) Qty: 18 RF: 0 Novolin N Flexpen 100 unit/mL (3 mL) insulin pen See Rx Instructions subcut .COMPLEX Qty: 15 RF: 4 melatonin 3 mg capsule 3 mg PO DAILY PRN (Reason: sleep) Qty: 90 RF: 6 Hold Instructions: Home Medication placed on hold at Doctor's office (DME) pen needle, diabetic [Lite Touch Insulin Pen [place]] 31 gauge x 1/4 needle See Rx Instructions .ROUTE .MEDSUPPLY Qty: 100 RF: 5 acetaminophen 325 MG tablet 650 mg PO Q4H PRN Qty: 60 RF: 2 hydroxyzine HCl 25 mg tablet 25 mg PO BID PRN (Reason: anxiety) Qty: 30 RF: 0 loratadine [Allergy Relief (loratadine)] 10 mg tablet 10 mg PO DAILY Qty: 90 RF: 4 fluoxetine 40 mg capsule 40 mg PO DAILY Qty: 90 RF: 3 Discharge Instructions Additional Instructions: Go home and rest. Return to the center on 06/07/2021 at a time that is given to you. If you have rupture of membranes or painful contractions every 5 minutes four one hour please call the office. Activity:: Activity as Tolerated Equipment/Supplies:: No Equipment Needed Diet:: As Tolerated Discharge Orders Discharge Orders: Discharge Order (Routine); Ordered 06/03/21 Ordered By: So Miller Discharge Data Discharge Date/Time-TO BE ENTERED AT DEPARTURE: 06/03/21 11:10 DS: Summary Time Spent with Patient providing and/or coordinating discharge services: Less than 30 minutes Status at Discharge Functional status at discharge: independent ambulation Overall status at discharge: patient is back to baseline Mental Status: mental status grossly normal Speech and Movement: agitated (Uncomfortable with contractions and pelvic pressure) Mood: labile mood (Would really like to be finished with ) Affect: labile affect Exam Narrative Exam Narrative: No change in cervical exam in the interval she was here. Manual OB Exam: dilated fingertip, effaced 75% and station -1 Amniotic Fluid: no fluid Other: Reactive NST. Psych Mental Status: mental status grossly normal Speech and Movement: agitated (Uncomfortable with contractions and pelvic pressure) Mood: labile mood (Would really like to be finished with ) Affect: labile affect Attitude: cooperative Insight: limited Judgment: limited DS: Data Vitals/I&O Vitals and I&O: Vital Signs Temperature 98.2 F 06/03/21 08:33 Pulse 110 H 06/03/21 08:38 Pulse Rhythm Regular 06/03/21 08:33 Respiratory Rate 16 06/03/21 08:33 Blood Pressure 119/77 06/03/21 08:38 Oxygen Delivery Method Room Air 06/03/21 08:33 Oxygen Flow Rate 0 06/03/21 08:33 Pain Level 10 06/03/21 08:33 Intake & Output 06/02/21 06/02/21 06/03/21 11:59 23:59 11:59 Weight 205 lb PFSH All Active Problems (Updated 06/03/21 @ 10:57 by So Miller MD) Discomfort during (Acute) Encounter for supervision of other normal , third trimester (Acute) History of delivery, currently (Acute) Gestational diabetes (Acute) (Acute) Panic (Acute) Anxiety (Chronic) Elevated BP without diagnosis of hypertension (Acute) Discomfort of right ear (Acute) 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 Has case management assistant Iona Bansal. Umbilical abnormality (Acute 06/29/16) Insomnia (Acute 07/25/17) Increased BMI (body mass index) (Chronic 08/24/17) Depressive disorder (Chronic 06/21/13) Psychiatric consult 02/23 Chronic midline low back pain without sciatica (Chronic 08/24/17) Attention deficit hyperactivity disorder (Chronic 10/31/12) Medical History Hx of migraines Maternal varicella, non-immune Surgical History Patent Ductus Arteriosus closure Tonsillectomy and adenoidectomy 2002 Family History Father Diabetes Maternal Grandfather , age 41 Brain cancer Mother Depression Brother , born at 5 months No problems noted. Daughter No problems noted. Paternal Grandfather No problems noted. Maternal Grandmother , age 74 Diabetes Heart disease Cervix cancer Stroke Brain cancer Lymph node cancer Paternal Grandmother No problems noted. Social History Smoking/Tobacco Use Status: Former Tobacco Use tobacco type: cigarettes Quit Date: 11/08/20 Tobacco: How many years used: 9 Quit status: has quit before Second Hand Exposure: Yes Smoking risk assessment performed?: Yes Alcohol Intake: former Counseling provided: provider counseling Details: Occasional binge drinking - counselled Drug use: Never Substance use type: marijuana Adopted: No Household members: family and other Details: lives with mother. Has supervised visitation with her son. No contact daugh Housing: apartment Number of Children: 2 Do you need help understanding health information?: Never current occupation: Disabled. Pets and animals: Yes Pets and animals: dog(s) Sexually active: Yes Do you think of yourself as: straight/heterosexual Current gender identity: female What is your relationship status?: never How often do you talk on the phone with friends or family?: never How often do you get together with friends or relatives?: once per week How often do you attend mosque or samaritan services?: 1-3 times per year Do you belong to any clubs or organized social groups?: no Panel score (0-1 are the most socially isolated patients): 0 Duration: < 15 minutes/day Frequency: 1-2 times per week Evangelina/Mosque: No preference Seatbelt use: sometimes Helmet use: No Drive intox or ride w/intox rail car driver: No Do you feel safe in your relationship?: Yes History History 2 Para 2 Hx # Term Pregnancies 0 Multiple births 0 Hx # Pregnancies 2 Ectopic pregnancies 0 AB induced 0 Hx Number of Living Children 2 AB spontaneous 0 Past Pregnancies Del. Date GA/Weeks # Outcome Route Wgt Sex Labor Lgth Anesthesia Location Prov Complic 07/20/16 34 Successful vaginal 5 lb 8 oz Female [facility] 05/06/18 34 No Successful vaginal 4 lb 11.8 oz Male [facility] Delivery Date: 07/20/16 PPROM, IOL with Pitocin, pt does not have custody. Tiff Nicolas Delivery Date: 05/06/18 Does not have custody. So Miller
--- NOTE | 2021-06-03 18:14 | W.OBNST ---
Date of service: 06/03/21 Time of Service: 11:14 NST Evaluation Reason for NST Reasons for Nonstress Test: GDM-INSULIN and FALSE LABOR Gestational Age Gestational Age in Weeks and Days: 33 Weeks and 6Days Test and Monitor Explained Test/Monitor Explained: Test Explained, Monitor Explained and Patient Verbalized Understanding NST Information Date on Monitor: 06/03/21 Time on Monitor: 08:17 Date off Monitor: 06/03/21 NST Interventions: None and Meal Given Contraction Frequency: irreg NST Evaluation Patient States Movement: Present FHR Baseline: 140 Variability: Moderate 6-25 bpm Accelerations: 15x15 Decelerations: None NST Results: Reactive Note Presentation (vertex) NST Note Note: Patient presented to center with complaints of vaginal pain. No loss of vaginal fluid. She was observed on the center for approximately 2 hours her blood glucose prior to her meal was 95 and she was given her 14 units of Novolin N for her a.m. dose of insulin. There is no cervical change during the interval she was on the center. She was counseled that she may in fact not go into labor at 34 weeks as she has expected and make continue to remain . She will follow-up on 06/07/2021 for a repeat NST on the center. NST Reviewed and Verified by: So Miller
== END 2021-06-03 11:10 | disposition home or self-care (01) ==
PROVIDERS: Admitting Provider Obstetrics & Gynecology Gynecology; Visit Provider Obstetrics & Gynecology Gynecology
DX: O26.893 Other specified pregnancy related conditions, third trimester (principal); O24.414 Gestational diabetes mellitus in pregnancy, insulin controlled; Z3A.33 33 weeks gestation of pregnancy
CPT/HCPCS: G0378

== ENCOUNTER 2021-06-04 16:25 | Observation (INO) | payer MEDICAID, SELFPAY ==
[2021-06-04 16:35] VITALS: BP 123/74; PULSE 91; RESP 16; TEMP 36.9
== END 2021-06-04 18:30 | disposition home or self-care (01) ==
PROVIDERS: Admitting Provider Obstetrics & Gynecology; Visit Provider Obstetrics & Gynecology
DX: O47.03 False labor before 37 completed weeks of gestation, third trimester (principal)
CPT/HCPCS: G0378

== ENCOUNTER 2021-06-07 07:21 | Outpatient (CLI) | payer MEDICAID, SELFPAY ==
[2021-06-07 11:11] VITALS: BP 114/69; PULSE 97; TEMP 36.8
--- NOTE | 2021-06-07 12:22 | W.DIABETESNO ---
Date of service: 06/07/21 Time of Service: 12:22 Diabetes Note NOTE: Met with Aruna at [facility] today during a NST. She is 37 weeks and expected to give already. Aruna has GDM, takes 14 units NPH am, 18 units NPH at hs. She wears a Dexcom 6 continuous glucose monitor that is remotely connected to [facility]. Ambulatory Glucose Profile (scanned into [employer]) indicates blood sugars in range > 85% of time, fasting sugars are < 95mg/dl with some glycemic excursions ( 90-105 mg/dl). Aruna is preoccupied with NST and phone calls and unable to discuss meals she has been having. Overall, it appears that she is taking insulin as prescribed and managing GDM well at this time. Will follow prn. Time Spent in Nutritional Counseling and Treatment: 20
--- NOTE | 2021-06-07 14:47 | W.OBNST ---
Date of service: 06/07/21 Time of Service: 11:48 NST Evaluation Reason for NST Reasons for Nonstress Test: GDM-INSULIN Gestational Age Gestational Age in Weeks and Days: 34 Weeks and 3Days Test and Monitor Explained Test/Monitor Explained: Test Explained, Monitor Explained and Patient Verbalized Understanding Vital Signs Blood Pressure: 114/69 Pulse: 97 Temperature: 98.2 F NST Information Date on Monitor: 06/07/21 Time on Monitor: 11:05 Date off Monitor: 06/07/21 Time off Monitor: 12:24 Total Time on Monitor: 79 NST Interventions: PO Hydration NST Evaluation Patient States Movement: Present FHR Baseline: 140 Variability: Moderate 6-25 bpm Accelerations: 15x15 and 10x10 NST Results: Reactive Note NST Note Note: Pt here at 34.3wks for NST for GDM. It is appropriate. No change in discomforts. NST Reviewed and Verified by: Alma Rodrigez
[2021-06-07 14:48] VITALS: BP 114/69; PULSE 97; TEMP 36.8
== END 2021-06-07 11:30 | disposition home or self-care (01) ==
LOC: BCD 07:23 → OBS 11:09
PROVIDERS: Visit Provider Obstetrics & Gynecology
DX: O24.414 Gestational diabetes mellitus in pregnancy, insulin controlled (principal); Z3A.34 34 weeks gestation of pregnancy
CPT/HCPCS: 59025

== ENCOUNTER 2021-06-08 14:12 | Outpatient (CLI) | payer MEDICAID, SELFPAY ==
[2021-06-08 14:35] VITALS: BP 137/66; PULSE 104; TEMP 36.8
[2021-06-08 14:38] VITALS: BP 137/66; PULSE 104
--- NOTE | 2021-06-08 15:31 | W.OBNST ---
Date of service: 06/08/21 Time of Service: 15:31 NST Evaluation Reason for NST Reasons for Nonstress Test: OTHER, SEE COMMENT Reason for NST Other: Patient states contractions started at 14:00 Gestational Age Gestational Age in Weeks and Days: 34 Weeks and 4Days Test and Monitor Explained Test/Monitor Explained: Test Explained, Monitor Explained and Patient Verbalized Understanding Vital Signs Blood Pressure: 137/66 Pulse: 104 Temperature: 98.2 F NST Information Date on Monitor: 06/08/21 Time on Monitor: 14:30 Date off Monitor: 06/08/21 Time off Monitor: 15:03 Total Time on Monitor: 33 NST Interventions: PO Hydration NST Evaluation Patient States Movement: Present FHR Baseline: 135 Variability: Moderate 6-25 bpm Accelerations: 10x10 Decelerations: None NST Results: Reactive Note NST Note Note: Patient is seen and examined on the center for nonstress test. She called the office with complaints of uterine contractions that were significantly painful. She has a category 1, reactive nonstress test without palpable contractions. Cervical exam performed with unchanged cervix at 1 cm, 75% effaced, -2 station. Labor was discussed with the patient. She will be seen for her repeat nonstress test on as scheduled. Glucose monitoring has been status. NST Reviewed and Verified by: Candida Vásquez
[2021-06-08 15:32] VITALS: BP 137/66; PULSE 104; TEMP 36.8
== END 2021-06-08 15:10 | disposition home or self-care (01) ==
LOC: BCD 14:13 → OBS 14:32
PROVIDERS: Visit Provider Obstetrics & Gynecology
DX: O60.03 Preterm labor without delivery, third trimester (principal); Z3A.34 34 weeks gestation of pregnancy
CPT/HCPCS: 59025

== ENCOUNTER 2021-06-11 08:39 | Outpatient (CLI) | payer MEDICAID, SELFPAY ==
[2021-06-11 11:10] VITALS: BP 133/84; PULSE 98; TEMP 36.6
[2021-06-11 11:34] VITALS: BP 133/84; PULSE 98
--- NOTE | 2021-06-11 12:04 | W.OBNST ---
Date of service: 10/28/21 Time of Service: 21:24 NST Evaluation Reason for NST Reasons for Nonstress Test: GDM-INSULIN Gestational Age Gestational Age in Weeks and Days: 35 Weeks and 0Days Test and Monitor Explained Test/Monitor Explained: Test Explained, Monitor Explained and Patient Verbalized Understanding Vital Signs Blood Pressure: 133/84 Pulse: 98 Temperature: 97.9 F NST Information Date on Monitor: 06/11/21 Time on Monitor: 11:13 Date off Monitor: 06/11/21 Time off Monitor: 12:00 Total Time on Monitor: 47 NST Interventions: None Contraction Frequency: none NST Evaluation Patient States Movement: Present FHR Baseline: 125 Variability: Moderate 6-25 bpm Accelerations: 15x15 Decelerations: None NST Results: Reactive Note NST Note Note: I reviewed pt's glycemic control-satisfactory with current insulin regime. Will continue twice weekly NSTs NST Reviewed and Verified by: So Miller
[2021-10-28 22:28] VITALS: BP 133/84; PULSE 98; TEMP 36.6
== END 2021-06-11 12:00 | disposition home or self-care (01) ==
LOC: BCD 08:40 → OBS 11:08
PROVIDERS: Visit Provider Obstetrics & Gynecology Gynecology
DX: O24.414 Gestational diabetes mellitus in pregnancy, insulin controlled (principal); Z3A.35 35 weeks gestation of pregnancy
CPT/HCPCS: 59025

== ENCOUNTER 2021-06-15 07:06 | Outpatient (CLI) | payer MEDICAID, SELFPAY ==
[2021-06-15 11:37] VITALS: BP 111/78; PULSE 96; TEMP 37
[2021-06-15 11:59] VITALS: BP 111/78; PULSE 96
--- NOTE | 2021-06-21 09:37 | W.OBNST ---
Date of service: 06/21/21 Time of Service: 09:37 NST Evaluation Reason for NST Reasons for Nonstress Test: GDM-INSULIN Gestational Age Gestational Age in Weeks and Days: 36 Weeks and 0Days Vital Signs Blood Pressure: 111/78 Pulse: 96 Temperature: 98.6 F NST Information Date on Monitor: 06/15/21 Time on Monitor: 11:43 Date off Monitor: 06/15/21 Time off Monitor: 12:25 Total Time on Monitor: 42 NST Interventions: PO Hydration NST Evaluation Patient States Movement: Present FHR Baseline: 135 Variability: Moderate 6-25 bpm Accelerations: 15x15 Decelerations: None NST Results: Reactive Note NST Note Note: I had a conversation with the patient regarding plans for disposition of infant after delivery. She is aware that DCF is involved and her infant will be placed into foster care and that she will not be discharged home with her infant. Plan at this time is obtain a group B strep rectovaginal test and to continue twice weekly NSTs. NST Reviewed and Verified by: So Miller
[2021-06-21 09:38] VITALS: BP 111/78; PULSE 96; TEMP 37
--- NOTE | 2021-06-27 12:40 | W.OBNST ---
Date of service: 06/27/21 Time of Service: 12:41 NST Evaluation Reason for NST Reasons for Nonstress Test: GDM-INSULIN Gestational Age Gestational Age in Weeks and Days: 37 Weeks and 0Days Vital Signs Blood Pressure: 111/78 Pulse: 96 Temperature: 98.6 F NST Information Date on Monitor: 06/15/21 Time on Monitor: 11:43 Date off Monitor: 06/15/21 Time off Monitor: 12:25 Total Time on Monitor: 42 NST Interventions: PO Hydration NST Evaluation Patient States Movement: Present FHR Baseline: 135 Variability: Moderate 6-25 bpm Accelerations: 15x15 Decelerations: None NST Results: Reactive Note NST Note Note: Patient seen on center in place of [facility] office visit. GBS RV CX obtained. Patient continues with episodic contractions since multiple somatic complaints. She will continue with twice weekly surveillance. NST Reviewed and Verified by: So Miller
[2021-06-27 12:41] VITALS: BP 111/78; PULSE 96; TEMP 37
== END 2021-06-15 12:25 | disposition home or self-care (01) ==
LOC: BCD 07:11 → OBS 11:36
PROVIDERS: Visit Provider Obstetrics & Gynecology
DX: O24.414 Gestational diabetes mellitus in pregnancy, insulin controlled (principal); Z3A.36 36 weeks gestation of pregnancy; Z36.85 Encounter for antenatal screening for Streptococcus B
CPT/HCPCS: 59025; 87081

== ENCOUNTER 2021-06-15 12:18 | Outpatient (CLI) | payer MEDICAID, SELFPAY ==
--- NOTE | 2021-06-15 10:00 | NS.NUTBLAN_ITS ---
Aruna returns for nutrition counseling for gestational diabetes. She is 36 weeks and has been taking 14 u NPH AM and 18 u NPH PM. She uses a Dexcom 6 continues glucose monitor. Ambulatory Glucose Profile scanned into chart. Average blood sugar: 105 mg/dl, 97.7% Time In Range (70-180), no hyper glycemia (>180), however had 2.3% hypglycemia (< 70 mg). GDM well controlled at this time with diet and insulin. Aruna is unable to engage in counseling today. Praised Aruna in her continued effort in managing her GDM. She continues to be compliant in insulin administration and managing her continuous glucose monitor and keeping her blood sugars in range. I attempted to discuss causes of her hypoglycemia on 06/04/21 (went down to 42mg/dl) however, she could not remember. She most likely didn't eat and took her insulin. Reviewed importance of not taking insulin if not eating for > 12 hours. Discussed case with MD. No change in insulin dosage at this time in view of hypoglcyemia in past week. will follow up prn.
== END 2021-06-15 12:19 | disposition home or self-care (01) ==
LOC: DS 12:19
PROVIDERS: Visit Provider Dietitian, Registered
DX: O24.414 Gestational diabetes mellitus in pregnancy, insulin controlled (principal); Z3A.36 36 weeks gestation of pregnancy; Z71.3 Dietary counseling and surveillance
CPT/HCPCS: 97803

== ENCOUNTER 2021-06-18 10:24 | Outpatient (CLI) | payer MEDICAID, SELFPAY ==
[2021-06-18 11:26] VITALS: BP 117/71; PULSE 103; TEMP 37
[2021-06-18 11:36] VITALS: BP 117/71; PULSE 103
--- NOTE | 2021-06-18 13:05 | W.OBNST ---
Date of service: 06/18/21 Time of Service: 11:49 NST Evaluation Reason for NST Reasons for Nonstress Test: GDM-INSULIN Gestational Age Gestational Age in Weeks and Days: 36 Weeks and 0Days Test and Monitor Explained Test/Monitor Explained: Test Explained, Monitor Explained and Patient Verbalized Understanding Vital Signs Blood Pressure: 117/71 Pulse: 103 Temperature: 98.6 F NST Information Date on Monitor: 06/18/21 Time on Monitor: 11:31 Date off Monitor: 06/18/21 Time off Monitor: 12:03 Total Time on Monitor: 32 NST Interventions: PO Hydration NST Evaluation Patient States Movement: Present FHR Baseline: 130 Variability: Moderate 6-25 bpm Accelerations: 15x15 Decelerations: None NST Results: Reactive Note NST Note Note: 36wks with GDM. No new complaints. Return next week, will schedule growth sono. NST Reviewed and Verified by: Alma Rodrigez
[2021-06-18 13:06] VITALS: BP 117/71; PULSE 103; TEMP 37
== END 2021-06-18 12:05 | disposition home or self-care (01) ==
LOC: BCD 10:25 → OBS 11:25
PROVIDERS: Visit Provider Obstetrics & Gynecology
DX: O24.414 Gestational diabetes mellitus in pregnancy, insulin controlled (principal); Z3A.36 36 weeks gestation of pregnancy
CPT/HCPCS: 59025

== ENCOUNTER 2021-06-22 08:26 | Outpatient (CLI) | payer MEDICAID, SELFPAY ==
[2021-06-22 11:04] VITALS: BP 119/70; PULSE 91; TEMP 36.8
[2021-06-22 11:05] VITALS: BP 119/70; PULSE 91; TEMP 36.8
--- NOTE | 2021-06-22 12:28 | W.OBNST ---
Date of service: 06/22/21 Time of Service: 12:29 NST Evaluation Reason for NST Reasons for Nonstress Test: GDM-INSULIN Gestational Age Gestational Age in Weeks and Days: 36 Weeks and 4Days Test and Monitor Explained Test/Monitor Explained: Patient Verbalized Understanding Vital Signs Blood Pressure: 119/70 Pulse: 91 Temperature: 98.2 F NST Information Date on Monitor: 06/22/21 Time on Monitor: 10:58 Date off Monitor: 06/22/21 Time off Monitor: 11:31 Total Time on Monitor: 33 NST Interventions: PO Hydration and Notify Provider NST Evaluation Patient States Movement: Present FHR Baseline: 125 Variability: Moderate 6-25 bpm Accelerations: 15x15 and 10x10 Decelerations: None NST Results: Reactive Note NST Note Note: P2 @36.4wks with GDM, well controlled on insulin. NST reactive. Cx checked per pt request: /2. Reviewed when to call for signs of labor NST Reviewed and Verified by: Alma Rodrigez
[2021-06-22 12:32] VITALS: BP 119/70; PULSE 91; TEMP 36.8
== END 2021-06-22 12:10 | disposition home or self-care (01) ==
LOC: BCD 08:27 → OBS 10:53
PROVIDERS: Visit Provider Obstetrics & Gynecology
DX: O24.414 Gestational diabetes mellitus in pregnancy, insulin controlled (principal); Z3A.36 36 weeks gestation of pregnancy
CPT/HCPCS: 59025

== ENCOUNTER 2021-06-25 07:44 | Outpatient (CLI) | payer MEDICAID, SELFPAY ==
[2021-06-25 10:58] VITALS: BP 116/69; PULSE 105; TEMP 37.1
== END 2021-06-25 11:46 | disposition home or self-care (01) ==
LOC: BCD 07:45 → OBS 10:57
PROVIDERS: Visit Provider Obstetrics & Gynecology Gynecology
DX: O24.414 Gestational diabetes mellitus in pregnancy, insulin controlled (principal)
CPT/HCPCS: 59025

== ENCOUNTER 2021-06-29 08:13 | Outpatient (CLI) | payer MEDICAID, SELFPAY ==
[2021-06-29 11:22] VITALS: BP 116/70; PULSE 99; TEMP 36.8
[2021-06-29 11:29] VITALS: BP 116/70; PULSE 99
--- NOTE | 2021-06-29 13:01 | W.OBNST ---
Date of service: 06/29/21 Time of Service: 13:01 NST Evaluation Reason for NST Reasons for Nonstress Test: GDM-INSULIN Gestational Age Gestational Age in Weeks and Days: 37 Weeks and 4Days Test and Monitor Explained Test/Monitor Explained: Test Explained, Monitor Explained and Patient Verbalized Understanding Vital Signs Blood Pressure: 116/70 Pulse: 99 Temperature: 98.2 F NST Information Date on Monitor: 06/29/21 Time on Monitor: 11:15 Date off Monitor: 06/29/21 Time off Monitor: 11:36 Total Time on Monitor: 21 NST Interventions: PO Hydration NST Evaluation Patient States Movement: Present FHR Baseline: 140 Variability: Moderate 6-25 bpm Accelerations: 15x15 Decelerations: None NST Results: Reactive Note NST Note Note: Reactive NST. Category 1 strip. Blood glucose monitoring within target range. SVE 2-3, 50, 0 station NST Reviewed and Verified by: Candida Vásquez
[2021-06-29 13:02] VITALS: BP 116/70; PULSE 99; TEMP 36.8
== END 2021-06-29 11:40 | disposition home or self-care (01) ==
LOC: BCD 08:15 → OBS 11:15
PROVIDERS: Visit Provider Obstetrics & Gynecology
DX: O24.414 Gestational diabetes mellitus in pregnancy, insulin controlled (principal); Z3A.37 37 weeks gestation of pregnancy
CPT/HCPCS: 59025

== ENCOUNTER 2021-06-30 01:39 | Outpatient (CLI) | payer MEDICAID, SELFPAY ==
--- NOTE | 2021-06-30 07:00 | DI.US_ITS ---
Exam(s) US OB KARTIK WEIGHT EXAM: US OB KARTIK WEIGHT CLINICAL HISTORY: gest diabetes,O24.419 TECHNIQUE: Ultrasound performed using standard protocol. COMPARISON: US US OB KARTIK WEIGHT from 05/27/2021 FINDINGS: Ob ultrasound was performed utilizing 3rd trimester protocol. biometry is consistent with gest ational age of 35 weeks 5 days and an EDC of July 30. The estimated weight is 2713 grams which is at the 13th percentile for predicted gestational ag e. Placenta is posterior with no evidence of placenta previa. There is a mildly increased quantity of a mniotic fluid visually and the KARTIK is 26.5. heart rate is 128 BPM. Fetus is in cephalic presentation. IMPRESSION: DATA REPOSITORY:
== END 2021-06-30 01:59 ==
PROVIDERS: Visit Provider Obstetrics & Gynecology
DX: Z3A.36 36 weeks gestation of pregnancy; O24.414 Gestational diabetes mellitus in pregnancy, insulin controlled
CPT/HCPCS: 76816

== ENCOUNTER 2021-07-02 08:21 | Outpatient (CLI) | payer MEDICAID, SELFPAY ==
[2021-07-02 11:13] VITALS: BP 118/75; PULSE 87; TEMP 36.8
[2021-07-02 11:27] VITALS: BP 118/75; PULSE 87
--- NOTE | 2021-07-02 11:47 | W.OBNST ---
Date of service: 07/02/21 Time of Service: 11:47 NST Evaluation Reason for NST Reasons for Nonstress Test: GDM-INSULIN Gestational Age Gestational Age in Weeks and Days: 38 Weeks and 0Days Test and Monitor Explained Test/Monitor Explained: Test Explained, Monitor Explained and Patient Verbalized Understanding Vital Signs Blood Pressure: 118/75 Pulse: 87 Temperature: 98.2 F NST Information Date on Monitor: 07/02/21 Time on Monitor: 11:15 Date off Monitor: 07/02/21 Time off Monitor: 11:38 Total Time on Monitor: 23 NST Interventions: PO Hydration NST Evaluation Patient States Movement: Present Variability: Moderate 6-25 bpm Accelerations: 15x15 Decelerations: None NST Results: Reactive Note NST Note Note: Patient seen in the office today. Reactive NST, category 1 strip. Occasional irregular contractions. Follow-up for NST as scheduled on Monday. Induction of labor scheduled near 39 weeks on 07/12/2021 NST Reviewed and Verified by: Candida Vásquez
[2021-07-02 11:48] VITALS: BP 118/75; PULSE 87; TEMP 36.8
== END 2021-07-02 11:39 | disposition home or self-care (01) ==
LOC: BCD 08:22 → OBS 11:11
PROVIDERS: Visit Provider Obstetrics & Gynecology
DX: O24.414 Gestational diabetes mellitus in pregnancy, insulin controlled (principal); Z3A.38 38 weeks gestation of pregnancy
CPT/HCPCS: 59025

== ENCOUNTER 2021-07-06 09:09 | Outpatient (CLI) | payer MEDICAID, SELFPAY ==
[2021-07-06 11:11] VITALS: BP 120/65; PULSE 90; TEMP 36.8
[2021-07-06 11:27] VITALS: BP 120/65; PULSE 90
[2021-07-06 11:51] VITALS: BP 120/65; PULSE 90; TEMP 36.8
--- NOTE | 2021-07-06 11:51 | W.OBNST ---
Date of service: 07/06/21 Time of Service: 11:51 NST Evaluation Reason for NST Reasons for Nonstress Test: GDM-INSULIN Gestational Age Gestational Age in Weeks and Days: 38 Weeks and 4Days Test and Monitor Explained Test/Monitor Explained: Test Explained, Monitor Explained and Patient Verbalized Understanding Vital Signs Blood Pressure: 120/65 Pulse: 90 Temperature: 98.2 F NST Information Date on Monitor: 07/06/21 Time on Monitor: 11:12 Date off Monitor: 07/06/21 Time off Monitor: 11:42 Total Time on Monitor: 30 NST Interventions: PO Hydration NST Evaluation Patient States Movement: Present FHR Baseline: 130 Variability: Moderate 6-25 bpm Accelerations: 15x15 Decelerations: None NST Results: Reactive Note NST Note Note: Reactive NST, category 1 strip. Follow-up as scheduled. NST Reviewed and Verified by: Candida Vásquez
== END 2021-07-06 11:35 | disposition home or self-care (01) ==
LOC: BCD 09:11 → OBS 11:09
PROVIDERS: Visit Provider Obstetrics & Gynecology
DX: O24.414 Gestational diabetes mellitus in pregnancy, insulin controlled (principal); Z3A.38 38 weeks gestation of pregnancy
CPT/HCPCS: 59025

== ENCOUNTER 2021-07-06 21:06 | Inpatient (IN) | payer MEDICAID, SELFPAY ==
[2021-07-06 21:35] VITALS: BP 126/72; PULSE 90; TEMP 36.8
[2021-07-06 21:37] LABS: Source Nasal/Nares
[2021-07-06 21:47] VITALS: BP 126/72; PULSE 90; RESP 18; TEMP 36.8
--- NOTE | 2021-07-06 21:52 | W.PM.OBHPL1 ---
Date of service: 07/06/21 Time of Service: 21:52 Assessment and Plan Assessment and plan (1) Encounter for supervision of other normal , third trimester: Status: Acute (2) Active labor at term: Status: Acute Assessment and plan: SROM @1900, port wine fluid. Active Labor. FSE placed for monitor of status. Expectant management (3) Gestational diabetes: Status: Acute Assessment and plan: Has CGM in place. Appropriate growth, 2700 grams at 38 weeks. Will do accuchecks q 4 hours (4) Impairment of comprehension: Status: Chronic Assessment and plan: No custody of prior babies. DFS involved. Patient has a home head of measurement & insights. OB-HPI Labor/Delivery History of Present Illness Reason for Visit: Term Labor Chief Complaint: Suspected Rupture of Membranes , Associated Signs and Symptoms of Suspected ROM: grossly ruptured. CHRISTIANO Calculator Estimated Delivery Date Method Current WG Current Estimate 07/16/21 LMP (Certain) 38w 4d Other Estimates 07/14/21 Ultrasound #1 38w 6d History of Present Expected Delivery Route/Plan - CNM, @ 12 wks: to MD service for hx 34 wk PTD x2 & pre-gest DM FOB is unknown. Planned name: Rissa/ Karena. Varicella Non-Immune, vaccine SROM, Gush of fluid at 1900. Baby is active. Not feeling UC's, presents via EMS Specific Issues/Plan 1. Impairment of comprehension. Does not have custody of her other children. [facility] involved. Has vegetable packer drive her to [employer]. 03/26/21. Moved out of mother's house. Living with head of measurement & insights Linda in [place]. Aydee is home health RN. 3. Hx delivery @ 34 wks x2 @ [facility], and hx maternal ductus arteriosis w/surgical repair, 01/12/21 [facility] [place] visit. 02/19/21 cervical length 3.1cm. 03/18/21 cervical length 2.7cm. No additional measurements needed. 4. BV+ at initial OB, Rx Flagyl 500 mg PO BID x7 days 5. Known CF negative, [place] result low prob x3. 02/19/21 [facility]. No f/u needed. 6. Varicella non immune, pt made aware and accepts vaccine 7. Pregestational DM, has CGM. Referal sent to [facility] for assistance with insulin injections (04/21). - 04/07/21. Novolin-N 18units @ [facility] [place]. 14 units @ am. has continuous glucose monitor. - Growth u/s 05/03/21 @ 29w3d: EFW 23%tile. KARTIK 14.7cm. Repeat week of 05/31/21. - NSTs at 32wks. - Betamethasone 05/27/21, 05/28/21. 8. GBS Negative Review of Systems Narrative: SROM at 1900. No S&S of pre-eclampsia All systems reviewed & are unremarkable except as noted in HPI and below Constitutional Constitutional: Denies chills, Denies fever(s) and Denies night sweats Eyes Eyes: Reports system reviewed and no additional complaints, except as documented Cardiovascular Cardiovascular: Reports system reviewed and no additional complaints, except as documented, Denies chest pain and Denies irregular heart rhythm Respiratory Respiratory: Reports system reviewed and no additional complaints, except as documented, Denies chest congestion and Denies cough Gastrointestinal Gastrointestinal: Reports system reviewed and no additional complaints, except as documented, Denies abdominal pain, Denies diarrhea and Reports nausea Genitourinary Genitourinary: Reports system reviewed and no additional complaints, except as documented Musculoskeletal Musculoskeletal: Reports system reviewed and no additional complaints, except as documented Neurologic Neurologic: Reports system reviewed and no additional complaints, except as documented Psychiatric Psychiatric: Reports system reviewed and no additional complaints, except as documented PFSH All Active Problems (Updated 07/06/21 @ 21:59 by Candida Vásquez DO) Active labor at term (Acute) Discomfort during (Acute) Encounter for supervision of other normal , third trimester (Acute) History of delivery, currently (Acute) Gestational diabetes (Acute) (Acute) Panic (Acute) Anxiety (Chronic) Elevated BP without diagnosis of hypertension (Acute) Discomfort of right ear (Acute) 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 Has medical case worker Iona Bansal. Umbilical abnormality (Acute 06/29/16) Insomnia (Acute 07/25/17) Increased BMI (body mass index) (Chronic 08/24/17) Depressive disorder (Chronic 06/21/13) Psychiatric consult 02/23 Chronic midline low back pain without sciatica (Chronic 08/24/17) Attention deficit hyperactivity disorder (Chronic 10/31/12) Medical History Hx of migraines Maternal varicella, non-immune Surgical History Patent Ductus Arteriosus closure Tonsillectomy and adenoidectomy 2002 Family History Father Diabetes Maternal Grandfather , age 41 Brain cancer Mother Depression Brother , born at 5 months No problems noted. Daughter No problems noted. Paternal Grandfather No problems noted. Maternal Grandmother , age 74 Diabetes Heart disease Cervix cancer Stroke Brain cancer Lymph node cancer Paternal Grandmother No problems noted. Social History Smoking/Tobacco Use Status: Former Tobacco Use tobacco type: cigarettes Quit Date: 11/08/20 Tobacco: How many years used: 9 Quit status: has quit before Second Hand Exposure: Yes Smoking risk assessment performed?: Yes Alcohol Intake: former Counseling provided: provider counseling Details: Occasional binge drinking - counselled Drug use: Never Substance use type: marijuana Adopted: No Household members: family and other Details: lives with mother. Has supervised visitation with her son. No contact daugh Housing: apartment Number of Children: 2 Do you need help understanding health information?: Never current occupation: Disabled. Pets and animals: Yes Pets and animals: dog(s) Sexually active: Yes Do you think of yourself as: straight/heterosexual Current gender identity: female What is your relationship status?: never How often do you talk on the phone with friends or family?: never How often do you get together with friends or relatives?: once per week How often do you attend orthodoxy or adventist services?: 1-3 times per year Do you belong to any clubs or organized social groups?: no Panel score (0-1 are the most socially isolated patients): 0 Duration: < 15 minutes/day Frequency: 1-2 times per week Evangelina/Hinduism: No preference Seatbelt use: sometimes Helmet use: No Drive intox or ride w/intox dedicated truck driver: No Do you feel safe at home: Yes Do you feel safe in your relationship?: Yes History History 3 Para 2 Hx # Term Pregnancies 0 Multiple births 0 Hx # Pregnancies 2 Ectopic pregnancies 0 AB induced 0 Hx Number of Living Children 2 AB spontaneous 0 Past Pregnancies Del. Date GA/Weeks # Outcome Route Wgt Sex Labor Lgth Anesthesia Location Prov Complic 07/20/16 34 Successful vaginal 5 lb 8 oz Female [facility] 05/06/18 34 No Successful vaginal 4 lb 11.8 oz Male [facility] Delivery Date: 07/20/16 PPROM, IOL with Pitocin, pt does not have custody. Reyna Nicolas Delivery Date: 05/06/18 Does not have custody. So Miller Allergies and Home Medications Allergies Allergy/AdvReac Type Severity Reaction Status Date / Time No Known Allergies Allergy Verified 07/01/21 08:06 Home Medications Medication Instructions Recorded Confirmed Type acetaminophen 650 mg PO Q4H PRN #60 tab-cap 01/27/16 07/02/21 History melatonin 3 mg capsule 3 mg PO DAILY PRN #90 cap 11/07/19 07/02/21 Rx hydroxyzine HCl 25 mg tablet 25 mg PO BID PRN #30 tab 09/09/20 07/02/21 Rx loratadine 10 mg tablet 10 mg PO DAILY #90 tab 12/18/20 07/02/21 Rx fluoxetine 20 mg capsule 20 mg PO DAILY #90 cap 12/22/20 07/02/21 Rx fluoxetine 40 mg capsule 40 mg PO DAILY #90 cap 03/05/21 07/02/21 Rx pen needle, diabetic 31 gauge x #100 ea 03/30/21 07/02/21 Rx 1/4 blood-glucose sensor #3 ea 04/08/21 07/02/21 Rx albuterol sulfate 90 mcg/actuation 2 inh INHALATION Q4H PRN #18 g 04/14/21 07/02/21 Rx aerosol inhaler insulin NPH isoph U-100 human 100 See Rx Instructions SUBCUT 04/14/21 07/02/21 Rx unit/mL (3 mL) subcutaneous pen .COMPLEX #15 ml Exam Physical Exam Vital signs: FHT 130's BP 120/70. LAst know glucose 107 Vital Signs Reviewed: Yes Constitutional Constitutional: no acute distress, obese and disheveled Detailed Labor and Delivery Exam Dilation: 5 Effacement (%): 100 station: 0 Position: AYAN Cervix position: anterior Consistency: soft Whyte Score: Cervical Points Exam 0 1 2 3 Dilation Closed 1-2cm 3-4 cm 5-6cm Effacement 0-30% 40-50% 60-70% 80% Consistency Firm Medium Soft Station -3 -2 -1,0 +1,+2 Position Posterior Mid Anterior Amniotic Membrane Status: Ruptured Rupture Method: Spontaneous Amniotic Fluid: Bloody Pooling: Positive Monitor Mode: External Contraction Frequency(min): 4 Contraction Intensity: Mild Fetus A Date of Membrane Rupture: 07/06/21 Time of Membrane Rupture: 19:00 HEENT Exam HEENT Exam: Normal Neck Exam Neck Exam: Normal Respiratory Exam Respiratory Exam: Normal Cardiovascular Exam Cardiovascular Exam: Normal Abdominal Exam Abdominal Exam: Normal Detailed Extremities Exam Extremities: Absent cyanosis, clubbing, edema and calf tenderness Skin Exam Skin Exam: Normal DetailedPsychiatric Exam Psychiatric: Present normal affect (Baseline) and manic; Absent good insight Results Results Group Beta Strep: Negative Blood Type: O+ Rubella Status: Immune Varicella Immunity: Nonimmune Risk Assessment Risk for Shoulder Dystocia Historical/Initial OB: POSITIVE FOR: Pre- BMI>30; NEGATIVE FOR: Pelvic Abnormality, Previous Shoulder Dystocia or Previous Macrosomia Increased Risk?: Yes Counseling: cannot do early glucola but will do fingerstick, glucometer ordered at initial Date/Initial: [place] 07/06/2021 Delivery Plan @ 40 wks: Anticipate . This baby is significantly larger than prior 34 week deliveries. Risk for Pre-Eclampsia Yes, if one or more: NEGATIVE FOR: Hx Pre-E/Gest HTN, Chronic HTN, Multiple Gestation, Pre-gestational DM, Renal Disease, Systemic Lupus or APA Syndrome Yes, if 2 or more: POSITIVE FOR: Nulliparity and BMI>30; NEGATIVE FOR: Age>= 35 yrs, >10yr btwn pregnancies, ethinicty, Mother/Sister w/ Pre-E or Previous IUGR Risk for Post- Hemorrhage Initial: NEGATIVE FOR: Multiple Gestation, Previous PPH, Known Clotting Deficiency, Grand Multiparity or Anticoagulation Counseled re: Active Management: Yes Risks Reviewed Risks Reviewed Upon Admission: Yes
[2021-07-06 22:19] LABS: COVID-19 PCR Negative (Negative)
--- NOTE | 2021-07-06 22:23 | NUR.NOTE ---
Verified with Zelalem in the lab the covid test on the patient is negative. Notified the provider Dr. Vásquez and the nurse Pippa.
[2021-07-06 22:27] LABS: HGB 10.7 g/dL (11.2-15.7); MCHC 31.5 % (32.0-36.0); MPV 11.6 fL (8.0-11.0); Platelet Count 181 10^3/uL (130-400); RBC 3.82 10^6/uL (3.93-5.22); RDW 14.1 % (11.7-14.6); RDW-SD 45.3 fL; WBC 13.01 10^3/uL (4.4-10.8)
--- NOTE | 2021-07-06 23:07 | W.PM.OBNL1 ---
Date of service: 07/06/21 Time of Service: 23:07 Pelvic Exam Dilation: 7 Effacement (%): 100 Position: AYAN Cervix Position: anterior Consistency: soft Contractions Monitor Mode: External Contraction Frequency(min): 4-5 Contraction Duration(sec): 60 Intensity: Moderate Fetus A Monitor: Internal (FSE) Heart Rate Baseline: 135 Presentation: Cephalic Variability: Moderate (6-25 BPM) Categories: Category I FHR Rhythm: Regular Accelerations: 15 X 15 Decelerations: None Amniotic Membrane Status: Ruptured Assessment and Plan Assessment and plan (1) Active labor at term: Status: Acute Assessment and plan: normal labor progression. Anticipate NS.VD she is going to deliver to: DFS number so they are aware (2) Discomfort during : Status: Acute (3) Gestational diabetes: Status: Acute Objective Abnormal lab results 07/06/21 Range/Units 22:15 WBC 13.01 H (4.4-10.8) 10^3/uL RBC 3.82 L (3.93-5.22) 10^6/uL Hgb 10.7 L (11.2-15.7) g/dL Hct 34.0 L (36.0-46.0) % MCHC 31.5 L (32.0-36.0) % MPV 11.6 H (8.0-11.0) fL Temp Pulse Resp BP 98.2 F 90 18 126/72 07/06/21 21:47 07/06/21 21:47 07/06/21 21:47 07/06/21 21:47 Laboratory Results WBC 13.01 10^3/uL (4.4-10.8) H 07/06/21 22:15 RBC 3.82 10^6/uL (3.93-5.22) L 07/06/21 22:15 Hgb 10.7 g/dL (11.2-15.7) L 07/06/21 22:15 Hct 34.0 % (36.0-46.0) L 07/06/21 22:15 MCV 89.0 fL (80-95) 07/06/21 22:15 MCH 28.0 pg (27.0-33.0) 07/06/21 22:15 MCHC 31.5 % (32.0-36.0) L 07/06/21 22:15 RDW 14.1 % (11.7-14.6) 07/06/21 22:15 Plt Count 181 10^3/uL (130-400) 07/06/21 22:15 MPV 11.6 fL (8.0-11.0) H 07/06/21 22:15 COVID-19 Source Nasal/Nares 07/06/21 21:20 SARS-CoV-2 (PCR) Negative (Negative) 07/06/21 21:20 Subjective Interval history since last seen: Patient is having increasing pain with more frequent contractions. Requesting analgesia. Anesthesia currently involved in surgical case in the operating room. Will present to the center when able. These findings were discussed with the patient. Offered nitrous for analgesia. Results Hemoglobin/Hematocrit: Hgb 10.7 g/dL (11.2-15.7) L 07/06/21 22:15 Hct 34.0 % (36.0-46.0) L 07/06/21 22:15 Abnormal Lab Findings: Abnormal Labs 07/06/21 22:15 WBC 13.01 H RBC 3.82 L Hgb 10.7 L Hct 34.0 L MCHC 31.5 L MPV 11.6 H
--- NOTE | 2021-07-06 23:18 | W.PM.OBNL1 ---
Date of service: 07/06/21 Time of Service: 23:18 Objective Abnormal lab results 07/06/21 Range/Units 22:15 WBC 13.01 H (4.4-10.8) 10^3/uL RBC 3.82 L (3.93-5.22) 10^6/uL Hgb 10.7 L (11.2-15.7) g/dL Hct 34.0 L (36.0-46.0) % MCHC 31.5 L (32.0-36.0) % MPV 11.6 H (8.0-11.0) fL Temp Pulse Resp BP 98.2 F 90 18 126/72 07/06/21 21:47 07/06/21 21:47 07/06/21 21:47 07/06/21 21:47 Laboratory Results WBC 13.01 10^3/uL (4.4-10.8) H 07/06/21 22:15 RBC 3.82 10^6/uL (3.93-5.22) L 07/06/21 22:15 Hgb 10.7 g/dL (11.2-15.7) L 07/06/21 22:15 Hct 34.0 % (36.0-46.0) L 07/06/21 22:15 MCV 89.0 fL (80-95) 07/06/21 22:15 MCH 28.0 pg (27.0-33.0) 07/06/21 22:15 MCHC 31.5 % (32.0-36.0) L 07/06/21 22:15 RDW 14.1 % (11.7-14.6) 07/06/21 22:15 Plt Count 181 10^3/uL (130-400) 07/06/21 22:15 MPV 11.6 fL (8.0-11.0) H 07/06/21 22:15 COVID-19 Source Nasal/Nares 07/06/21 21:20 SARS-CoV-2 (PCR) Negative (Negative) 07/06/21 21:20 Patient ABO/Rh O Positive 07/06/21 22:15 Antibody Screen NEGATIVE 07/06/21 22:15 Subjective Interval history since last seen: Called DCF intake line to report patient in labor. Instructed to call back same number, after delivery. Results Hemoglobin/Hematocrit: Hgb 10.7 g/dL (11.2-15.7) L 07/06/21 22:15 Hct 34.0 % (36.0-46.0) L 07/06/21 22:15 Abnormal Lab Findings: Abnormal Labs 07/06/21 22:15 WBC 13.01 H RBC 3.82 L Hgb 10.7 L Hct 34.0 L MCHC 31.5 L MPV 11.6 H
[2021-07-06] MEDS: Oxytocin/Normal Saline 30 UNIT/500 ML BAG 95 UNITS IV (23:43)
--- NOTE | 2021-07-06 23:45 | PLAC_PTH ---
PATIENT: Aruna Friedman LOC: OBS U#:[id number] AGE/SX: 26/F ROOM: OBS.305 RE07/06/[address]: Candida Vásquez DO : 1995 BED: A DIS: 07/08/2021 SPEC #: [id number] RECD: 07/07/21 12:37 STATUS: MARLENY REQ #: [id number] GERALDINE: 07/06/21 23:[address]: Candida Vásquez DEPT: Surgical Specimen RECD BY: Yahaira Paulino ENTERED: 07/07/21 12:37 SP TYPE: PLAC OTHR DR: Tania Leos APRN Tissues: 1 - PLACENTA (3RD TRIMESTER) Procedures: GROSS AND MICRO LEVEL 5 Comments: [id number]
[2021-07-07] VITALS (10 sets, daily range): BP systolic 105–130; BP diastolic 57–72; PULSE 78–99; RESP 16–18; TEMP 36.6–36.9; O2SAT 97
--- NOTE | 2021-07-07 00:06 | OBVDS_ITS ---
Date of service: 07/07/21 Time of Service: 00:07 OB Labor/ Delivery Information Baby A Delivery Delivery Method: Spontaneaous Presentation: Vertex Vertex Position: Right Occipital Posterior Cord Description-Baby A: 3 Vessels Amniotic Fluid: Bloody Estimated Blood Loss: 200 Delivery Outcome: Liveborn Transferred: Remains with Mother Providers Doctor: Candida Vásquez Nurse: Birgit Gutiérrez Nurse: Viky Pimentel Labor/Delivery Information Steroids Given: Full Course Group Beta Strep: Negative Antibiotics Administered: No Rubella Status: Immune Blood Type: O+ Varicella Immunity: Nonimmune Maternal Complications: Precipitous Labor(<3hrs) Shoulder Dystocia: No Note: Patient rapidly progressed from 5 cm presentation to completely dilated with the vertex in the posterior position. Throughout the course of her labor, she continued to have gushes of port-wine stained amniotic fluid. She did request an epidural when approximately 7 cm, however anesthesia unavailable. Patient used nitrous oxide for analgesia with good effect. She was found to be completely dilated, and with good maternal effort, she pushed the vertex over an intact perineum. Shoulders followed quickly with ease and the baby to the mom's chest. At this point, after cessation of umbilical pulsation, clamps were placed and umbilical cord was cut. Placenta delivered spontaneously and was noted to be intact. As of note there was adherent clot to the maternal surface approximately 10% placental surface. Both cord blood gases and cord blood sample were obtained. Placenta will be sent for examination. On inspection of the perineum there is noted to be a small second-degree midline perineal laceration which was infiltrated with 1% lidocaine and closed in the usual fashion with 3-0 Vicryl suture. There was a laceration that was a first- degree at the left labia minora which was infiltrated with lidocaine and sutured with a single stitch of 3-0 Vicryl. Postdelivery, mom and baby are in stable condition. Uterus is firm and below the umbilicus. Qualitative blood loss was 200 mL. Need to check on the Stages of Labor Onset of Labor Date: 07/06/21 Onset of Labor Time: 21:53 Complete Dilatation Date: 07/06/21 Complete Dilatation Time: 23:30 Labor - Stage 1 Duration: 0 minutes ROM Baby A: 07/06/21 ROM Baby A: 19:00 ROM Total Time- Baby A: [id number] Infant Delivery Date-Baby A: 07/06/21 Infant Delivery Time-Baby A: 23:41 Labor Stage 2 Duration: 11 minutes Placenta Delivery Date-Baby A: 07/06/21 Placenta Delivery Time-Baby A: 23:45 Labor-Stage 3 Duration: 4 minutes Total Length of Labor-Baby A: 1 hours and 48 minutes Placenta Status: Delivered Baby A Gender: Female Gestational Status: Early Term (37-38.6 wks) Gestational Age in Weeks/Days: 38 Weeks and 4 Days
[2021-07-07 06:57] LABS: HCT 32.1 % (36.0-46.0); HGB 10.5 g/dL (11.2-15.7); MCH 28.7 pg (27.0-33.0); MCHC 32.7 % (32.0-36.0); MCV 87.7 fL (80-95); MPV 10.8 fL (8.0-11.0); Platelet Count 221 10^3/uL (130-400); RBC 3.66 10^6/uL (3.93-5.22); RDW 14.1 % (11.7-14.6); RDW-SD 44.8 fL; WBC 15.89 10^3/uL (4.4-10.8)
--- NOTE | 2021-07-07 07:12 | OBPPV_ITS ---
Date of service: 07/07/21 Time of Service: 07:12 Assessment and Plan Assessment and plan (1) (normal spontaneous vaginal delivery): Status: Acute Assessment and plan: routine care (2) Gestational diabetes: Status: Acute Assessment and plan: GDS at 6 weeks (3) Impairment of comprehension: Status: Chronic Assessment and plan: oil well services field supervisor today Subjective Subjective Interval history: Doing well. Discussed control, Consents to [place]. Will place today. Understands that case management social worker/DFS will be here today Patient comments: No complaints baby status: Doing well and Rooming in Exam Physical Exam Vital signs: Temp Pulse Resp BP Pulse Ox 98.1 F 78 16 122/72 97 07/07/21 06:00 07/07/21 06:00 07/07/21 06:00 07/07/21 06:00 07/07/21 01:45 Constitutional Constitutional: no acute distress HEENT Exam HEENT Exam: Normal Respiratory Exam Respiratory Exam: Normal Cardiovascular Exam Cardiovascular Exam: Normal Abdominal Exam Comments: normal Extremities Exam Extremity Exam: Normal and Edema (1+ B/L); negative Calf Tenderness Skin Exam Skin Exam: Normal Detailed Neurological Exam Neurological: Present alert and oriented X3 Results Hemoglobin/Hematocrit: Hgb 10.5 g/dL (11.2-15.7) L 07/07/21 06:30 Hct 32.1 % (36.0-46.0) L 07/07/21 06:30 Abnormal Lab Findings: Abnormal Labs 07/06/21 07/07/21 22:15 06:30 WBC 13.01 H 15.89 H RBC 3.82 L 3.66 L Hgb 10.7 L 10.5 L Hct 34.0 L 32.1 L MCHC 31.5 L MPV 11.6 H
--- NOTE | 2021-07-07 13:41 | W.PROCNOTE ---
Date of service: 07/07/21 Time of Service: 14:03 Procedure Note Date of procedure: 07/07/21 Procedure: Insertion of Nexplanon in the left upper extremity Surgeon/Proceduralist/Physician: Candida Vásquez Procedure Diagnosis: Undesired fertility Procedure Indications: Contraceptive therapy Procedure Description: After full informed consent was obtained, left upper extremity elevated. Marked, 10 cm proximal to the epicondyle and 5 cm proximal to that. Insertion site infiltrated with 1% lidocaine. Area prepped with Betadine. Nexplanon device inserted under the skin, elevated, and deployed. Insertion site closed with skin affix. Sterile dressing placed. Tight gauze wrap placed. Instructions given. Patient tolerated the procedure without difficulty Device [id number] expiration, September 16, 2023
--- NOTE | 2021-07-07 14:48 | NUR.NOTE ---
Phone call from Jeffery Chatterjee from [facility]. Discussed health of mom (Aruna) and baby. Per the report received by this physician underwriter, only noted complications during were bloody amniotic fluid which resulted in placenta being sent to pathology. As of today both mom and baby are stable with exams WNL. Mr. Chatterjee states he has an affidavit in place with his supervisor public message service and that the current plan is to submit it to a seaman for Emergency Custody of (Rissa). Mr. Chatterjee states he has a note about Aruna looking into private adoption, asked if she has made any mention of this. To this physician underwriter's knowledge Aruna does not intend to pursue adoption at this time, private or otherwise and fully intends to care for her child. Aruna did have Nexplanon placed this afternoon (senior living control) which was relayed to Sen. Mr. Chatterjee asked who was present with the patient at this time and this physician underwriter relayed that Aruna's mother is in the room at this time. Discussed that the likely timeframe of discharge for both Aruna and Rissa would be tomorrow, while keeping in contact with [facility] regarding disposition of both mother and baby. Mr. Chatterjee states that he will continue to follow up on his end and that we should hear back by the end of the day what the plan is for the care of Rissa. This note is in Abimiils chart as well for continuity of care. Nursing Note:
--- NOTE | 2021-07-07 16:43 | NUR.NOTE ---
Jeffery Chatterjee from [facility] called to verify plan for the night. Affidavit has been completed but will not be filed emergently unless there is a drastic change for tonight. Plan will be to file the affidavit first thing in the morning and have a result by midday tomorrow. If there are any concerns for Aruna during the night, staff is to call the 800 number who will have the needed information to file the affidavit emergently if the need arises. Note will be copied into rosie Kwok's chart for continuity of care. Nursing Note:
[2021-07-07] MEDS: hydrOXYzine HCL 25 MG TAB PO (16:47)
[2021-07-07] MEDS: FLUoxetine 20 MG CAP 60 MG PO (16:48)
[2021-07-08 01:04] VITALS: BP 95/55; PULSE 79; RESP 18; TEMP 36.6
[2021-07-08 08:40] VITALS: BP 133/84; PULSE 102; RESP 16; TEMP 36.7; O2SAT 97
[2021-07-08] MEDS: FLUoxetine 20 MG CAP 60 MG PO (08:49)
[2021-07-08] MEDS: hydrOXYzine HCL 25 MG TAB PO (08:49)
--- NOTE | 2021-07-08 09:01 | W.PM.OBPNV1 ---
Date of service: 07/08/21 Time of Service: 09:01 Assessment and Plan Assessment and plan (1) (normal spontaneous vaginal delivery): Status: Acute Assessment and plan: Postoperative day #2 status post normal spontaneous vaginal delivery. From a physical standpoint doing well. Awaiting final disposition via DFS for and ongoing care. Patient is currently in a supportive environment with home nursing, social media marketing manager, DFS involvement, behavioral health services. Anticipate maternal discharge home today (2) Gestational diabetes: Status: Acute Assessment and plan: Will plan on evaluation for ongoing diabetes at her 6-week examination (3) Impairment of comprehension: Status: Chronic Subjective Subjective Interval history: Patient seen and examined this morning. She is doing well and having minimal pain. We discussed the possibility of discharge to home today. She is wondering as to whether her baby would be able to go home with her. I did tell her that my impression is that it is unlikely that the baby will go home with her, this is pending further information and input from DSS. She is appropriately saddened by this. From a physical standpoint she is doing well. Patient comments: No complaints, Pain well controlled, Tolerating diet and Flatus present baby status: Strong Bonding Observed Exam Physical Exam Vital signs: Temp Pulse Resp BP Pulse Ox 97.9 F 79 18 95/55 L 97 07/08/21 01:04 07/08/21 01:04 07/08/21 01:04 07/08/21 01:04 07/07/21 13:45 Constitutional Constitutional: no acute distress HEENT Exam HEENT Exam: Normal Neck Exam Neck Exam: Normal Respiratory Exam Respiratory Exam: Normal Cardiovascular Exam Cardiovascular Exam: Normal Abdominal Exam Comments: Soft, nontender Fundal Exam Fundus: Below Umbilicus and Firm Extremities Exam Extremity Exam: Normal; negative Calf Tenderness and Edema Skin Exam Skin Exam: Normal Neurological Exam Neurological Exam: Normal DetailedPsychiatric Exam Psych Exam: Cooperative and Agitated Comments: Patient's affect is baseline Results Hemoglobin/Hematocrit: Hgb 10.5 g/dL (11.2-15.7) L 07/07/21 06:30 Hct 32.1 % (36.0-46.0) L 07/07/21 06:30 Abnormal Lab Findings: Abnormal Labs 07/06/21 07/07/21 22:15 06:30 WBC 13.01 H 15.89 H RBC 3.82 L 3.66 L Hgb 10.7 L 10.5 L Hct 34.0 L 32.1 L MCHC 31.5 L MPV 11.6 H
--- NOTE | 2021-07-08 09:08 | W.PM.OBDISCH ---
Date of service: 07/08/21 Time of Service: 09:08 DS: Diagnosis Discharge Diagnosis (1) (normal spontaneous vaginal delivery): Status: Acute (2) Gestational diabetes: Status: Acute (3) Impairment of comprehension: Status: Chronic Discharge Plan Disposition Patient Disposition: HOME Condition: Good Discharge Details Reason For Visit: Term Labor, normal spontaneous vaginal delivery Admit Date/Time: 07/06/21 21:06 Admit Provider: Candida Vásquez Attending Provider: Candida Vásquez Primary Care Provider: Tania Leos Hospital Course Hospital Course: Patient presented via EMS with spontaneous rupture of membranes for port-wine stained fluid. She underwent a normal course of labor and delivered a viable female infant. Placental pathology is being performed due to port-wine stained fluid and what appears to be a marginal abruption. Otherwise mom did well post and will be discharged home day #2 ambulating, tolerating regular diet and oral pain medication. At this point, she no longer needs to do glucose monitoring for diabetes. She will have a 2-hour glucose tolerance test at her 6-week checkup. Baby's disposition will be based on evaluation by DSS. Patient does have significant support including home care, home nursing, and behavioral health. Home Meds and New Rx's Prescriptions: New ibuprofen 800 mg tablet 800 mg PO Q8H Qty: 30 RF: 1 Continued fluoxetine 20 mg capsule 20 mg PO DAILY Qty: 90 RF: 3 albuterol sulfate 90 mcg/actuation HFA aerosol inhaler 2 inh inhalation Q4H PRN (Reason: shortness of breath or wheezing) Qty: 18 RF: 0 melatonin 3 mg capsule 3 mg PO DAILY PRN (Reason: sleep) Qty: 90 RF: 6 Hold Instructions: Home Medication placed on hold at Doctor's office acetaminophen 325 MG tablet 650 mg PO Q4H PRN Qty: 60 RF: 2 hydroxyzine HCl 25 mg tablet 25 mg PO BID PRN (Reason: anxiety) Qty: 30 RF: 0 loratadine [Allergy Relief (loratadine)] 10 mg tablet 10 mg PO DAILY Qty: 90 RF: 4 fluoxetine 40 mg capsule 40 mg PO DAILY Qty: 90 RF: 3 Discontinued Novolin N Flexpen 100 unit/mL (3 mL) insulin pen See Rx Instructions subcut .COMPLEX Qty: 15 RF: 4 No Action (DME) Dexcom G6 Sensor Device See Rx Instructions .ROUTE .MEDSUPPLY Qty: 3 RF: 3 (DME) pen needle, diabetic [Lite Touch Insulin Pen [place]] 31 gauge x 1/4 needle See Rx Instructions .ROUTE .MEDSUPPLY Qty: 100 RF: 5 Discharge Instructions Stand Alone Forms: BC Post Vaginal Deliver Activity:: Activity as Tolerated Equipment/Supplies:: No Equipment Needed Diet:: As Tolerated Discharge Orders Discharge Orders: Discharge Order (Routine); Ordered 07/08/21 Ordered By: Candida Vásquez OB:DS Summary Summary Vaginal Delivery Method: Spontaneaous Laceration Description: Perineal Laceration Extension: Second Degree Contraception Discussed Contraception Discussed: Yes (Nexplanon placed 07/07/2021) Contraceptive Plan: Levonorgestrel Implant, Infant Gender-Baby A: Female Status at Discharge Functional status at discharge: independent ambulation Overall status at discharge: patient is back to baseline Mental Status: mental status grossly normal Speech and Movement: speech and movement normal Mood: congruent mood Affect: labile affect (Baseline) and sad (Appropriate for situation) Exam Physical Exam Vital signs: Temp Pulse Resp BP Pulse Ox 97.9 F 79 18 95/55 L 97 07/08/21 01:04 07/08/21 01:04 07/08/21 01:04 07/08/21 01:04 07/07/21 13:45 Constitutional Comments: See physical exam from progress [facility] dated 07/08/2021 [facility] Active Problems (normal spontaneous vaginal delivery) (Acute) Active labor at term (Acute) Discomfort during (Acute) Encounter for supervision of other normal , third trimester (Acute) History of delivery, currently (Acute) Gestational diabetes (Acute) (Acute) Panic (Acute) Anxiety (Chronic) Elevated BP without diagnosis of hypertension (Acute) Discomfort of right ear (Acute) 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 Has caseworker protective services Iona Bansal. Umbilical abnormality (Acute 06/29/16) Insomnia (Acute 07/25/17) Increased BMI (body mass index) (Chronic 08/24/17) Depressive disorder (Chronic 06/21/13) Psychiatric consult 02/23 Chronic midline low back pain without sciatica (Chronic 03/15/18) Attention deficit hyperactivity disorder (Chronic 10/31/12) Medical History Hx of migraines Maternal varicella, non-immune Surgical History Patent Ductus Arteriosus closure Tonsillectomy and adenoidectomy 2002 Family History Father Diabetes Maternal Grandfather , age 41 Brain cancer Mother Depression Brother , born at 5 months No problems noted. Daughter No problems noted. Paternal Grandfather No problems noted. Maternal Grandmother , age 74 Diabetes Heart disease Cervix cancer Stroke Brain cancer Lymph node cancer Paternal Grandmother No problems noted. Social History Smoking/Tobacco Use Status: Former Tobacco Use tobacco type: cigarettes Quit Date: 11/08/20 Tobacco: How many years used: 9 Quit status: has quit before Second Hand Exposure: Yes Smoking risk assessment performed?: Yes Alcohol Intake: former Counseling provided: provider counseling Details: Occasional binge drinking - counselled Drug use: Never Substance use type: marijuana Adopted: No Household members: family and other Details: lives with mother. Has supervised visitation with her son. No contact daugh Housing: apartment Number of Children: 2 Do you need help understanding health information?: Never current occupation: Disabled. Pets and animals: Yes Pets and animals: dog(s) Sexually active: Yes Do you think of yourself as: straight/heterosexual Current gender identity: female What is your relationship status?: never How often do you talk on the phone with friends or family?: never How often do you get together with friends or relatives?: once per week How often do you attend gnosticist or baptism services?: 1-3 times per year Do you belong to any clubs or organized social groups?: no Panel score (0-1 are the most socially isolated patients): 0 Duration: < 15 minutes/day Frequency: 1-2 times per week Eavngelina/Druze: No preference Seatbelt use: sometimes Helmet use: No Drive intox or ride w/intox rickshaw driver: No Do you feel safe at home: Yes Do you feel safe in your relationship?: Yes History History 3 Para 2 Hx # Term Pregnancies 0 Multiple births 0 Hx # Pregnancies 3 Ectopic pregnancies 0 AB induced 0 Hx Number of Living Children 2 AB spontaneous 0 Past Pregnancies Del. Date GA/Weeks # Outcome Route Wgt Sex Labor Lgth Anesthesia Location Prov Complic 07/20/16 34 Successful vaginal 5 lb 8 oz Female regional [facility] 05/06/18 34 No Successful vaginal 4 lb 11.8 oz Male [facility] 07/06/21 38 No Successful vaginal 6 lb 3 oz Female Candida Vásquez Delivery Date: 07/20/16 PPROM, IOL with Pitocin, pt does not have custody. Francisco Nicolaset Delivery Date: 05/06/18 Does not have custody. So Miller Delivery Date: 07/06/21 No notes to display DS: Data Vitals/I&O Vitals and I&O: Vital Signs Temperature 97.9 F 07/08/21 01:04 Pulse 79 07/08/21 01:04 Pulse Rhythm Regular 07/08/21 01:04 Respiratory Rate 18 07/08/21 01:04 Blood Pressure 95/55 L 07/08/21 01:04 Blood Pressure Mean 68 07/08/21 01:04 Pulse Oximetry 97 07/07/21 13:45 Oxygen Delivery Method Room Air 07/06/21 21:47 Oxygen Flow Rate 0 07/06/21 21:47 Intake & Output 07/07/21 07/07/21 07/08/21 11:59 23:59 11:59 Intake Total 500 / 500 Output Total 500 / 500 Balance -500 / 0 500 / 0 Intake: IV 500 / 500 Output: Urine 500 / 500
--- NOTE | 2021-07-08 12:52 | NUR.NOTE ---
Patient made statement to staff writer about how the code pink alert was stupid and that a mother should be able to leave the hospital with her baby if she wants to; that's not abduction. Bench Molder Apprentice explained to patient that the code pink procedure is to ensure the safety of the and that while the is a patient of [facility] we must know where the baby is at all times until the patient has been discharged to the proper guardians.
--- NOTE | 2021-07-08 15:53 | NUR.NOTE ---
Nursing Note: Jeffery Chatterjee, [facility] case packer and sealer called with plan update - himself, Vee Zambrano ([facility]) and Gala (Aruna's home care provider) will be coming to transfer baby girl Young into DCF custody. Baby to be brought to nursery for safety while [facility] discusses procedure with Aruna. Security on standby in center back hallway if needed. Mom to be discharged home first, followed by baby discharge to foster parents.
== END 2021-07-08 17:00 | disposition home or self-care (01) | DRG 805 ==
PROVIDERS: Admitting Provider Obstetrics & Gynecology; Visit Provider Obstetrics & Gynecology
DX: O24.424 Gestational diabetes mellitus in childbirth, insulin controlled (principal); O45.93 Premature separation of placenta, unspecified, third trimester; Z37.0 Single live birth; O99.344 Other mental disorders complicating childbirth; F41.8 Other specified anxiety disorders; O70.1 Second degree perineal laceration during delivery; O62.3 Precipitate labor; Z3A.38 38 weeks gestation of pregnancy
CPT/HCPCS: 11981; 36415; 85027; 86850; 86900; 86901; 87635; 88307; G0378; J3490

== ENCOUNTER 2021-08-16 04:28 | Outpatient (CLI) | payer MEDICAID, SELFPAY | END 2021-08-16 04:29 | disposition home or self-care (01) | LOC: LBO 04:28 | PROVIDERS: Visit Provider Obstetrics & Gynecology Gynecology ==

== ENCOUNTER 2021-11-24 21:07 | Outpatient (REF) | payer MEDICAID, SELFPAY | END 2021-11-24 21:08 | disposition home or self-care (01) | LOC: LBN 21:07 | PROVIDERS: Visit Provider Nurse Practitioner Family | DX: J02.9 Acute pharyngitis, unspecified (principal) | CPT/HCPCS: 87070 ==

== ENCOUNTER 2023-02-27 14:00 | Outpatient (REF) | payer MEDICAID, SELFPAY ==
[2023-02-28 10:10] LABS: HIV-1/2 Ag & Ab Screen Negative (Negative)
[2023-02-28 10:22] LABS: Hepatitis C Ab w Rflx HCV PCR Negative (Negative)
[2023-02-28 10:58] LABS: Syphilis Serology (RPR) Negative (Negative)
[2023-03-01 09:33] LABS: HSV Type 1 Ab, IgG Negative (Negative); HSV Type 2 Ab, IgG Negative (Negative)
[2023-03-01 15:54] LABS: Chlamydia Result Negative (Negative); GC Result Negative (Negative)
[2023-03-02 00:18] LABS: HSV 1 PCR Negative (Negative); HSV 2 PCR Negative (Negative); Specimen Source DERMAL
[2023-03-02 19:35] LABS: Specimen Source DERMAL
== END 2023-02-27 14:01 | disposition home or self-care (01) ==
LOC: LBN 14:00
PROVIDERS: PCP Nurse Practitioner Family; Visit Provider Nurse Practitioner Family
DX: N89.8 Other specified noninflammatory disorders of vagina (principal)
CPT/HCPCS: 86803; 87389; 87491; 87529; 87591; 86592; 86695; 86696; 87480; 87510; 87660; 87798

== ENCOUNTER → 2023-06-30 00:46 | Outpatient (CLI) | payer MEDICAID, SELFPAY ==
--- NOTE | 2023-06-30 08:50 | DI.RAD_ITS ---
Exam(s) XR LUMBAR SPINE COMPLETE EXAM: XR LUMBAR SPINE COMPLETE CLINICAL HISTORY: increasing in severity,chronic midline low back pain,m54.5. TECHNIQUE: 2D digital imaging was performed. COMPARISON: No exams were available for comparison FINDINGS: Five views. No evidence of fracture, listhesis, nor pars defects. All the disc spaces exhibit normal height. Th ere is no facet arthropathy. Sacroiliac joints appear unremarkable. No significant scoliosis. IMPRESSION: No acute osseous findings in the lumbosacral spinal column. DATA REPOSITORY: RADIATION DOSE DELIVERED:
== END ==
PROVIDERS: PCP Nurse Practitioner Family; Visit Provider Nurse Practitioner Family
DX: G89.29 Other chronic pain (principal); M54.50 Low back pain, unspecified
CPT/HCPCS: 72110

== ENCOUNTER 2023-07-04 03:57 | Outpatient (CLI) | payer MEDICAID, SELFPAY ==
[2023-07-04] MEDS: Albuterol HFA 18 GM 200 PUFF INH IH (16:28)
[2023-07-04] MEDS: Methacholine 100 MG VIAL IH (16:28)
[2023-07-04] MEDS: Inhaler, Assist Device 1 EACH MC (16:29)
--- NOTE | 2023-07-06 10:06 | W.PFT ---
Date of service: 07/04/23 Time of Service: 15:00 Pulmonary Function Test Result Indications: Dyspnea Interpretation Spirometry: There is mild airflow limitation at baseline. There was a 21% decrease in FEV1 with administration of 1.0mg/mL methacholine. Impression Mild baseline airflow limitation and positive methacholine challenge. Clinical Correlation therefore is recommended.
== END 2023-07-04 03:58 | disposition home or self-care (01) ==
LOC: RT 03:57
PROVIDERS: PCP Nurse Practitioner Family; Visit Provider Nurse Practitioner Family
DX: R06.00 Dyspnea, unspecified (principal)
CPT/HCPCS: 94060; 94070; J7674

== ENCOUNTER 2023-09-19 15:33 | Outpatient (REF) | payer MEDICAID, SELFPAY ==
--- NOTE | 2023-09-19 14:00 | PAPFT_PTH ---
PATIENT: Aruna Friedman LOC: NIR U#:[id number] AGE/SX: 28/F ROOM: RE09/19/[address]: Kristopher Mishra DNP : 1995 BED: DIS: 09/19/2023 SPEC #: [id number] RECD: 09/20/23 12:58 STATUS: MARLENY VALENCIA #: [id number] GERALDINE: 09/19/23 14:[address]: Kristopher Perez DEPT: [facility] Cytology RECD BY: Yahaira Paulino Tissues: 1 - CX/ENDOCX FOR PAP SMEARS Procedures: PAP THIN PREP/UVM Screening HPV DNA PROBE Comments: [id number]
== END 2023-09-19 15:34 | disposition home or self-care (01) ==
LOC: LBN 15:33
PROVIDERS: PCP Nurse Practitioner Family; Referring Provider Nurse Practitioner Family; Visit Provider Nurse Practitioner Family
DX: Z00.00 Encounter for general adult medical examination without abnormal findings (principal)
CPT/HCPCS: 88142; 87624

== ENCOUNTER 2023-11-20 05:59 | Outpatient (CLI) | payer MEDICAID, SELFPAY ==
[2023-11-20 12:27] LABS: Anion Gap 10.7 mmol/L (3-11); BUN 11 mg/dL (7-18); CO2 26.3 mmol/L (21.0-32.0); CREATININE 0.8 mg/dL (0.55-1.02); Calcium 9.1 mg/dL (8.5-10.1); Chloride 103 mmol/L (98-107); Glucose 101 mg/dL (74-106); Sodium 140 mmol/L (136-145)
== END 2023-11-20 06:00 | disposition home or self-care (01) ==
LOC: LOS 05:59
PROVIDERS: PCP Nurse Practitioner Family; Visit Provider Nurse Practitioner Family
DX: Z13.1 Encounter for screening for diabetes mellitus (principal)
CPT/HCPCS: 36415; 80048

== ENCOUNTER 2024-07-09 11:50 | Outpatient (CLI) | payer MEDICAID, SELFPAY ==
--- NOTE | 2024-07-09 11:45 | RT.EKG_ITS ---
APPROVED REPORT Exam: Resting ECG Reason for Exam: chest discomfort Patient Location: O HR:74 bpm ECG Measurements Heart Rate 74 AXIS MO 157 P 48 QRSd 89 QRS 38 QT 378 T 28 QTc 420 Conclusion Sinus rhythm...normal P axis, V-rate 50- 99 RSR' in V1 or V2, probably normal variant...small R' only Baseline wander in lead(s) V1
== END 2024-07-09 11:51 | disposition home or self-care (01) ==
LOC: DI.CM 11:51
PROVIDERS: PCP Nurse Practitioner Family; Visit Provider Nurse Practitioner Family
DX: R07.89 Other chest pain (principal)
CPT/HCPCS: 93010

== ENCOUNTER 2024-07-09 12:40 | Emergency (ER) | payer MEDICAID, SELFPAY ==
--- NOTE | 2024-07-09 12:45 | RT.EKG_ITS ---
APPROVED REPORT Exam: Resting ECG Reason for Exam: CP Patient Location: E HR:90 bpm ECG Measurements Heart Rate 90 AXIS WV 146 P 40 QRSd 88 QRS 16 QT 369 T -1 QTc 453 Conclusion Sinus rhythm, rate 90 No interval abnormalities No STEMI <1mm ST depression V3, V4 No priors available for comparison
[2024-07-09 12:49] VITALS: BP 125/88; PULSE 88; RESP 20; TEMP 36.9; O2SAT 97
[2024-07-09 13:04] VITALS: RESP 20
--- OUTSIDE RECORDS SUMMARY | 2024-07-09 13:37 | XMS_ITS | Encounter Summary ---
Author Organization [facility] Address [facility] [place] [address] Care Team Providers Care Burlap Roll Coverer Name Role Phone Tania Leos APRN Primary Care Provider [phone] Reason for Visit * Reason Comments Advice Only * Consultation (Routine) - Closed Specialty Diagnoses / Procedures Referred By Des saucedo Referred To Contact Obstetrics and Gynecology Diagnoses PREV PREG PPROM AT 34 WEEKS, HX ADHD, LEARNING DISABILITES, MIGRANES, PDA REPAIR Reyna Nicolas, [facility] [address] [place] [address] [place] [address] [facility] [address] [place] [address] Referral ID Status Reason Start Date Expiration Date Visits Re quested Visits Authorized [id number] Closed 11/20/2017 11/20/2018 1 1 Encounter Details Date Type Department Care Team (Late st Contact Info) Description 11/23/2017 1:15 PM EDT Office Visit Obstetrics [place] [address] Edvin Baldwin MD [facility] OBSTETR[facility] [place] [address] H/O delivery, currently Social History Tobacco Use Types Packs/Day Years Used Date Smoking Tobacco: Former Cigarettes Smokeless Tobacco: Never Alcohol Use Standard Drinks/Week Comments No 0 (1 standard drink = 0.6 oz pur e alcohol) Comments Yes Sex and Gender Information Value Date Recorded Sex Assigned at Not on file Gender Identity Not on file Sexual Orientation Not on file documented as of this encounter Last Filed Vital Signs Vital Sign Reading Time Taken Comments Blood Pressure 92/66 11/23/2017 1:22 PM EDT Pulse - - Temperature - - Respiratory Rate - - Oxygen Saturation - - Inhaled Oxygen Concentration - - Weight 72.6 kg (160 lb) 11/23/2017 1:22 PM EDT Height - - Body Mass Index 27.9 07/19/2016 3:00 AM EST documented in this encounter Progress Notes * Linnea Barajas MD - 11/23/2017 1:15 PM EDT Diagnosis/Maternal Medicine Consult Note Harley Friedman is a 22 y.o. at 11w1d by LMP consistent with 7w4d US who presents for [facility] consult for history of PPROM and at 34w2d. She also has a history of developmental delay and presents today with her mother. She is seen in consultation, referred by: Reyna Nicolas, [address] [place] [address] S: The patient had a post-placental Liletta placed after her delivery on 07/20/2017. However, she felt that this was causing weight gain and so had it removed. This was not a planned but it is welcome and she does wish to proceed with the . She does not have custody of her first child. She denies a family history of bleeding or clotting disorders. No family history of genetic or congenital abnormalities. Her father has type II DM along with several grandparents. She does not have afamily history of pre-eclampsia. Review of Systems Constitutional:no weight loss, fever, night sweats Eyes: negative Ears Nose Throat:negative Respiratory: no cough, shortness of breath, or wheezing Cardiac: negative Gastrointestinal: negative Genitourinary: Negative for dysuria Musculoskeletal: negative Skin: negative Psychiatric: Negative Endocrine: negative Movement: has not yet felt Contractions: none Leaking: None Bleeding: none now Preeclampsia signs and symptoms: None Patient Active Problem List Diagnosis Code ??? YORK (headache) R51 ??? ADHD (attention deficit hyperactivity disorder), combined type F90.2 ??? Major depressive disorder, recurrent episode, moderate (DEPRESSION) F33.1 ??? premature rupture of membranes (PPROM) with unknown onset of labor O42.919 ??? Contraception Z30.9 ??? 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 ADHD (attention deficit hyperactivity disorder) ??? Major depression ??? Premature Born 4 months early Past Surgical History: Procedure Laterality Date ??? PATENT DUCTUS ARTERIOUS LIGATION ??? TONSILLECTOMY AND ADENOIDECTOMY Social History Social History ??? Marital status: Single Spouse name: N/A ??? Number of children: N/A ??? Years of education: N/A Occupational History ??? Not on file. Social History Main Topics ??? Smoking status: Former Smoker Types: Cigarettes ??? Smokeless tobacco: Never Used ??? Alcohol use No ??? Drug use: No ??? Sexual activity: Yes Partners: Male Other Topics Concern ??? Not on file Social History Narrative No family history on file. No Known Allergies Current Outpatient Prescriptions on File Prior to Visit Medication Sig Dispense Refill ??? vitamin with [id number] ( VITAMIN) Tablet Daily ??? acetaminophen (TYLENOL) 325 mg Tablet Take 2 tablets by mouth every 4 hours as needed for Pain.(Patient not taking: Reported on 11/23/2017) 30 tablet 1 ??? ibuprofen (ADVIL;MOTRIN) 600 mg Tablet Take 1 tablet by mouth every 6 hours as needed for Pain.(Patient not taking: Reported on 11/23/2017) 30 tablet 12 ??? methylphenidate (CONCERTA) 36 mg Tablet Extended Rel 24 hr Take 72 mg by mouth every morning. Indications: Attention-Deficit Hyperactivity Disorder No current facility-administered medications on file prior to visit. Record Review Labs Plt: 296 RPR neg HepB surface antigen: neg HIV: neg Physical Exam Last Set of Vitals: Most Recent Vitals: 11/23/17 1322 BP: 92/66 Body mass index is 27.9 kg/(m^2). General: alert, well appearing, in no apparent distress HEENT: normocephalic, atraumatic Oral Pharynx: normocephalic Abdomen: abdomen is soft without significant tenderness, masses, organomegaly or guarding. Extremities: no redness or tenderness in the calves or thighs, no edema Neurologic: alert, oriented, speech pattern consistent with developmental delay Heart Rate Interpretation: 160bpm by doppler Assessment and Recommendations: Harley Friedman is a 22 y.o. at 11w1d with PMHx of developmental delay and PPROM with delivery who presents for [facility] consultation We discussed the recurrence risk for delivery of ~ 30%. I recommend a transvagainal cervical length ultrasound at 18-20 weeks morphology. If the cervix measures < 25mm, then a cervix cerclage may reduce the risk of yaneli- viable delivery and morbidity and mortality. I recommend 17 alpha hydroxy progesterone caproate 250mg IM weekly starting at 15-18 weeks through 37 weeks as this may reduce the risk of recurrent delivery by ~ 30-50%. Did not receive documentation of full panel including Rubella testing. Gonorrhea and chlamydia appeared to have been obtained, but not finalized in our records. I appreciate the opportunity to be involved in this patients care, and am available if further questions should arise. The patient was seen, evaluated, and plan formulated with Dr. Baldwin, [facility] attending physician. LINNEA BARAJAS MD PGY4 11/23/2017 CC: Reyna Nicolas[address] [place] [address] * Edvin Baldwin MD - 11/23/2017 1:15 PM EDT The case was discussed at the time of the visit or immediately after the visit. The assessment and plan were formulated in discussion with me and I agree with them as documented. I have reviewed the history, physical exam, assessment and plan with the resident. Major issues discussed today: Risk of recurrent . Plan: I recommend detailed morphology ultrasound with cervical length measurement, as well as 17-OHprogesterone, 250mg IM weekly, from 15 - 18 weeks, until 36 weeks. Edvin BALDWIN MD documented in this encounter Plan of Treatment Not on file documented as of this encounter Results * US OB Detailed Morphology (01/12/2018 3:14 PM EDT) Anatomical Region Laterality Modality Pelvis, Abdomen Ultrasound 01/12/2018 2:03 PM EDT Impressions 01/12/2018 4:54 PM EDT 2nd Trimester - Detailed Morphology - Summary Single intrauterine with a gestational age of 18w 2d based on LMP ??(09/06/17). Composite age based on the current ultrasound alone is 19w 6d. Current growth parameters are consistent with prior dating indicating normal growth. Amniotic fluid volume is appropriate for gestational age. Detailed anatomic evaluation was performed. Persistent right umbilical vein visualized. ??Unilateral choroid plexus cyst visualized. No ??other structural abnormalities are noted. ? Edvin Baldwin MD Electronically Signed Final Report ?? 01/12/2018 04:54 pm Narrative 01/12/2018 4:54 PM EDT OBSTETRICS REPORT ? (Signed Final 01/12/2018 04:54 pm) PATIENT INFO: ID #: ? [id number] ?: ??[birth year] (22 yrs) Name: ? HARLEY Saucedo YOUNG ? Visit Date: 01/12/2018 02:03 pm PERFORMED BY: Performed By: ? Siri Sanders RDMS Attending: ?Edvin Baldwin MD ??Melissa Referred By: ?MAGALY WEBSTER MD Location: ? [place] SERVICE(S) PROVIDED: ??[facility] - Detailed Morphology - [id number] ? [id number] ??UOBTV - Viability - Cervical Length -Transvaginal - ?? [id number] ??[id number] INDICATIONS: ??18 weeks gestation of ?Z3A.18 ??H/O ; cervical length; MFM TECHNIQUE/SCAN QUALITY: Technique: ?? Transducer ID#: [id number] OB HISTORY: Blood ?Height: ??5'3 ?Weight (lb): 160 ? BMI: ??28.34 Type: EVALUATION: Num Of Fetuses: ? 1 Heart ? 145 Rate(bpm): Cardiac Activity: ?? Observed, normal rhythm Presentation: ? Breech Placenta: ? Anterior P. Cord Insertion: ??Within Normal Limits Amniotic Fluid KARTIK FV: ?Appropriate for gestational age --------- BIOMETRY: --------- BPD: ?43.9 ??mm ? G.Age: ?? 19w 2d OFD: ?58.0 ??mm HC: ?162.9 ??mm ? G.Age: ?? 19w 1d AC: ?148.0 ??mm ? G.Age: ?? 20w 1d FL: ? 33.6 ??mm ? G.Age: ?? 20w 4d HUM: ?29.4 ??mm ? G.Age: ?? 19w 4d CER: ?20.0 ??mm ? G.Age: ?? 19w 0d NFT: ? 3.4 ??mm NB: ?3.6 ??mm LV: ?6.6 ??mm CM: ?4.8 ??mm CI: ?75.7 ??% ? 70 - 86 FL/HC: ? 20.6 ??% ? 15.8 - 18 HC/AC: ? 1.10 ?1.07 - 1.29 FL/BPD: ?76.5 ??% FL/AC: ? 22.7 ??% ? 20 - 24 Est. FW: ? 334 ?? gm ?? 0 lb 12 oz GESTATIONAL AGE: LMP: ? 18w 2d ?Date: ??09/06/17 ? CHRISTIANO: ?? 06/13/18 U/S Today: ? 19w 6d ?CHRISTIANO: ?? 06/02/18 Best: ?18w 2d ?? Det. By: ??LMP ??(09/06/17) ?CHRISTIANO: ?? 06/13/18 TARGETED ANATOMY: Central Nervous System Calvarium/Cranial V.: ??Within Normal Limits Intracranial Nicole: ? Within Normal Limits Cavum: ? Visualized Parenchyma: ?Within Normal Limits Lateral Ventricles: ?Within Normal Limits Choroid Plexus: ?Unilateral choroid ple Cereb./Vermis: ? Within Normal Limits Cisterna Magna: ?Within Normal Limits Midline Falx: ?Within Normal Limits Spine Cervical: ?Visualized Thoracic: ?Visualized Lumbar: ?Visualized Sacral: ?Visualized Shape/Curvature: ? Visualized Head/Neck Face: ?Visualized Lips: ?Within Normal Limits Neck: ?Visualized Nuchal Fold: ? Within Normal Limits Nasal Bone: ?Present Profile: ? Visualized Orbits/Eyes: ? Visualized Mandible: ?Visualized Maxilla: ? Visualized Thorax Thoracic Contour: ?Visualized Lungs: ? Visualized 4 Chamber View: ?4- chamber view merlene Cardiac Motion: ?Normal Rhythm Rt Outflow Tract: ?Visualized Lt Outflow Tract: ?Visualized Aortic Arch: ? Visualized Ductal Arch: ? Visualized SVC: ? Visualized Cardiac Carlton: ?Visualized Diaphragm: ? Visualized 3 Vessel View: ? Visualized IVC: ? Visualized Crossing: ?Visualized Abdomen Ventral Wall: ?Visualized Cord Insertion: ?Visualized Situs: ? Normal Stomach: ? Visualized Liver: ? Visualized Lt Kidney: ? Visualized Rt Kidney: ? Visualized Bladder: ? Visualized Bowel: ? Visualized Extremities Lt Humerus: ?Visualized Rt Humerus: ?Visualized Lt Forearm: ?Visualized Rt Forearm: ?Visualized Lt Hand: ? Visualized Rt Hand: ? Visualized Lt Femur: ?Visualized Rt Femur: ?Visualized Lt Lower Leg: ?Visualized Rt Lower Leg: ?Visualized Lt Foot: ? Visualized Rt Foot: ? Visualized Other Umbilical Cord: ?3 vessel cord Comment: ? Persistent right umbilical vein; CERVIX UTERUS ADNEXA: Cervix Length: ?2.6 ??cm. Closed; No change with fundal pressure Left Ovary Size(cm) ? 2.6 ??x ?? 1.3 ?x ??1.5 ? Vol(ml): 2.0 Visualized; Corpus Luteum Right Ovary Size(cm) ? 1.9 ??x ?? 1.7 ?x ??1.2 ? Vol(ml): 2.0 Visualized Procedure Note Edvin Baldwin MD - 01/12/2018 OBSTETRICS REPORT (Signed Final 01/12/2018 04:54 pm) PATIENT INFO: ID #: [id number] : [birth year] (22 yrs) Name: HARLEY FRIEDMAN Visit Date: 01/12/2018 02:03 pm PERFORMED BY: Performed By: Siri Sanders RDMS Attending: Edvin Baldwin MD Referred By: MAGALY WEBSTER MD Location: [place] SERVICE(S) PROVIDED: [facility] - Detailed Morphology - [id number] UOBTV - Viability - Cervical Length -Transvaginal - [id number] INDICATIONS: 18 weeks gestation of Z3A.18 H/O ; cervical length; MFM TECHNIQUE/SCAN QUALITY: Technique: Transducer ID#: [id number] OB HISTORY: Blood Height: 5'3 Weight (lb): 160 BMI: 28.34 Type: EVALUATION: Num Of Fetuses: 1 Heart 145 Rate(bpm): Cardiac Activity: Observed, normal rhythm Presentation: Breech Placenta: Anterior P. Cord Insertion: Within Normal Limits Amniotic Fluid KARTIK FV: Appropriate for gestational age --------- BIOMETRY: --------- BPD: 43.9 mm G.Age: 19w 2d OFD: 58.0 mm HC: 162.9 mm G.Age: 19w 1d AC: 148.0 mm G.Age: 20w 1d FL: 33.6 mm G.Age: 20w 4d HUM: 29.4 mm G.Age: 19w 4d CER: 20.0 mm G.Age: 19w 0d NFT: 3.4 mm NB: 3.6 mm LV: 6.6 mm CM: 4.8 mm CI: 75.7 % 70 - 86 FL/HC: 20.6 % 15.8 - 18 HC/AC: 1.10 1.07 - 1.29 FL/BPD: 76.5 % FL/AC: 22.7 % 20 - 24 Est. FW: 334 gm 0 lb 12 oz GESTATIONAL AGE: LMP: 18w 2d Date: 09/06/17 CHRISTIANO: 06/13/18 U/S Today: 19w 6d CHRISTIANO: 06/02/18 Best: 18w 2d Det. By: LMP (09/06/17) CHRISTIANO: 06/13/18 TARGETED ANATOMY: Central Nervous System Calvarium/Cranial V.: Within Normal Limits Intracranial Nicole: Within Normal Limits Cavum: Visualized Parenchyma: Within Normal Limits Lateral Ventricles: Within Normal Limits Choroid Plexus: Unilateral choroid ple Cereb./Vermis: Within Normal Limits Cisterna Magna: Within Normal Limits Midline Falx: Within Normal Limits Spine Cervical: Visualized Thoracic: Visualized Lumbar: Visualized Sacral: Visualized Shape/Curvature: Visualized Head/Neck Face: Visualized Lips: Within Normal Limits Neck: Visualized Nuchal Fold: Within Normal Limits Nasal Bone: Present Profile: Visualized Orbits/Eyes: Visualized Mandible: Visualized Maxilla: Visualized Thorax Thoracic Contour: Visualized Lungs: Visualized 4 Chamber View: 4- chamber view merlene Cardiac Motion: Normal Rhythm Rt Outflow Tract: Visualized Lt Outflow Tract: Visualized Aortic Arch: Visualized Ductal Arch: Visualized SVC: Visualized Cardiac Carlton: Visualized Diaphragm: Visualized 3 Vessel View: Visualized IVC: Visualized Crossing: Visualized Abdomen Ventral Wall: Visualized Cord Insertion: Visualized Situs: Normal Stomach: Visualized Liver: Visualized Lt Kidney: Visualized Rt Kidney: Visualized Bladder: Visualized Bowel: Visualized Extremities Lt Humerus: Visualized Rt Humerus: Visualized Lt Forearm: Visualized Rt Forearm: Visualized Lt Hand: Visualized Rt Hand: Visualized Lt Femur: Visualized Rt Femur: Visualized Lt Lower Leg: Visualized Rt Lower Leg: Visualized Lt Foot: Visualized Rt Foot: Visualized Other Umbilical Cord: 3 vessel cord Comment: Persistent right umbilical vein; CERVIX UTERUS ADNEXA: Cervix Length: 2.6 cm. Closed; No change with fundal pressure Left Ovary Size(cm) 2.6 x 1.3 x 1.5 Vol(ml): 2.0 Visualized; Corpus Luteum Right Ovary Size(cm) 1.9 x 1.7 x 1.2 Vol(ml): 2.0 Visualized IMPRESSION 2nd Trimester - Detailed Morphology - Summary Single intrauterine with a gestational age of 18w 2d based on LMP (09/06/17). Composite age based on the current ultrasound alone is 19w 6d. Current growth parameters are consistent with prior dating indicating normal growth. Amniotic fluid volume is appropriate for gestational age. Detailed anatomic evaluation was performed. Persistent right umbilical vein visualized. Unilateral choroid plexus cyst visualized. No other structural abnormalities are noted. Edvin Baldwin MD Electronically Signed Final Report 01/12/2018 04:54 pm E Melissa Baldwin MD IMG US OB ORDERAB LES documented in this encounter Visit Diagnoses Diagnosis H/O delivery, currently with history of pre-term labor H/O delivery, currently with history of pre-term labor documented in this encounter Care Teams Burlap Roll Coverer Relationship Specialty Start Date End Date Tania Leos, PROOF TECHNICIAN HELPER [address] [place] [address] PCP - General Family Medicine 11/20/17 03/04/22 documented as of this encounter
--- OUTSIDE RECORDS SUMMARY | 2024-07-09 13:37 | XMS_ITS | Encounter Summary ---
Author Organization [facility] Address [facility] [place] [address] Care Team Providers Care Roof Assembler Name Role Phone DarriusTania bustamante Tammy DOVE Primary Care Provider [phone] Reason for Visit * Reason Comments Follow-up Encounter Details Date Type Department Care Team (Latest Contact Info) Description 01/12/2018 3:00 PM EDT Procedure visit Obstetrics [place] [address] Edvin Baldwin MD [facility] OBSTETRICS [place] [address] Choroid plexus cyst of fetus affecting care of mother, antepartum, single or unspecified fetus; Umbilical vein abnormality affecting , single or unspecified fetus; anomaly Social History Tobacco Use Types Packs/Day Years [...] Sign Reading Time Taken Comments Blood Pressure 116/61 01/12/2018 1:49 PM EDT Pulse - - Temperature - - Respiratory Rate - - Oxygen Saturation - - Inhaled Oxygen Concentration - - Weight 72.9 kg (160 lb 11.2 oz) 01/12/2018 1:49 PM EDT Height - - Body Mass Index 28.02 07/19/2016 3:00 AM EST documented in this encounter Progress Notes * Edvin Baldwin MD - 01/12/2018 3:00 PM EDT Gestational age: 18w2d, returns for follow-up ultrasound and limited MFM consult. Patient Active Problem List Diagnosis Date Noted ??? premature rupture of membranes (PPROM) with unknown onset of labor 07/19/2016 ??? Contraception 07/19/2016 ??? PDA: patient was delivered at 26wks gestation 01/27/2016 ??? Major depressive disorder, recurrent episode, moderate (DEPRESSION) 05/15/2014 ??? YORK (headache) 02/13/2014 ??? ADHD (attention deficit hyperactivity disorder), combined type 02/13/2014 Ultrasound Date: 01/12/2018 Growth appropriate for gestational age Amniotic fluid volume normal Presentation breech Placenta anterior anatomy is remarkable for a unilateral choroid plexus cyst and a persistent right umbilical vein Cervical length: 2.6cm, no dynamic change Physical Exam BP 116/61 Wt 72.9 kg (160 lb 11.2 oz) BMI 28.02 kg/m2 General: alert, well appearing, in no apparent distress, oriented to person, place and time, overweight HEENT: normocephalic, atraumatic Abdomen: Gravid, soft, nontender Extremities: no edema Neurologic:alert, oriented, normal speech, no focal findings or movement disorder noted Psychiatric: Affect is Appropriate. Assessment and Recommendations: 22 y.o. year old female at 18w2d weeks gestation with AIRPLANE CLEANER and PRUV. PRUV may be associated with aneuploidy, complex cardiac defects and growth restriction. The cardiac anatomy appears normal, however I recommend echocardiogram in one month to further evaluate the vascular anatomy. Ms. Friedman did not opt for aneuploidy screening in this . I offered both diagnostictesting and cell free DNA screening; she opted for cell-free DNA screening. Due to risk of growth disorder in the third trimester, I recommend follow-up ultrasound, which may be done locally. The cervical length was normal, with no dynamic change. Ms. Friedman should remain on 17-OH progesterone weekly, until 36 weeks gestation. She informed me today that she has not yet begun the Desire injections. I strongly recommend that these be initiated as soon as possible. I appreciate the opportunity to be involved in this patients care, and am available if further questions should arise. Edvin BALDWIN MD 01/12/2018 Cc: Reyna Nicolas, with copy of ultrasound report documented in this encounter Plan of Treatment Not on file documented as of this encounter Results * ECHO COMPLETE (02/28/2018 10:47 AM EDT) Anatomical Region Laterality Modality Other 02/28/2018 Narrative 02/28/2018 12:03 PM EDT Procedure: ?Pediatric Echocardiogram Patient: ?YOUNG HARLEY L T ?(Age): 1995(22y) ? Med Rec#: ? [id number] ?Sex: ?F ? [place] Loc: ? [facility]Ht / Wt: ??(cm)/ (kg) ? Pt. Loc: ?Echo Lab ? Study Date: ?? 02/28/2018 ?Pt. Type: Study Quality: ? Referring: Cameron Baldwin Referring: Edvin BALDWIN REBECCA Reading: Tarsha Tejada ([id number]) On Air Host: Pippa Franklin Diagnosis: *Abnormal ultrasonic finding on screening of mother (O28.3) BP: ? / SUMMARY: 1. A echocardiogram was performed at 25 weeks gestation (CHRISTIANO: 06/13/2018) due to an abnormality obstetric scan . ??Good quality images were obtained. ??The fetus is in vertex position. ?? 2. Levocardia with normal segmental and conotruncal anatomy {S,D,S}. 3. Normal chamber dimensions, myocardial appearance, wall thickness, ventricular systolic function. 4. Valve structure and function appear normal. 5. Normal heart rate (153 bpm). Normal mechanical [place] interval (116 ms). No arrhythmia detected. 6. No cardiac structural abnormalities were identified. ??A persistent right umbilical vein is suspected, although views were limited by the position. 7. No hydrops. 8. No specific or cardiac follow-up is required on this basis of this study. 9. The limitations of echocardiography include the inability to diagnose patent ductus arteriosus, some atrial and ventricular septal defects, minor valve abnormalities and coarctation. FINDINGS: ? Venous Connections ?There are normal systemic venous connections, with the superior and inferior vena cavae returning to the right atrium. Normal spectral Doppler patterns in umbilical vein, ductus venosus, ductus arteriosus, and umbilical artery. ?At least one pulmonary vein from each side enters the left atrium. No pulmonary venous anomalies are detected. ?? Atrial Septum ?There is a patent foramen ovale (PFO). ?There is [id number] shunting across the patent foramen ovale with color Doppler. (Normal physiology.) Av Valves ?The tricuspid valve is functionally and structurally normal. ?The tricuspid valve diameter measures 7.8 mm in the lateral plane obtained from the A4C view. (Z-Score:0.20) ?The mitral valve is functionally and structurally normal. ?The mitral valve diameter measures 6.8 mm in the lateral plane obtained from the A4C view. (Z-Score:-0.59) Ventricles ?The right ventricle is of normal size. ?The right ventricular systolic function is normal. ?The left ventricular chamber size, wall thickness and systolic function are normal. ?The global left ventricular systolic function is normal. Ventricular Septum ?The interventricular septum is intact with no evidence of a ventricular septal defect. Semilunar Valves ?The pulmonary valve annulus diameter measures 5.3 mm. (Z-Score: 1.05) ?The pulmonary valve leaflets are of normal thickness. ?The aortic valve leaflets are of normal thickness. Thoracic Arteries ?The main pulmonary artery is normal, without dilatation, stenosis, or aneurysm. The great arteries are normally related. ?The right pulmonary artery has normal size, origin, and configuration. ?The left pulmonary artery has normal size, origin, and configuration. ?There is a patent ductus arteriosus. ?There is zybqu-pv-gndh shunting across the patent ductus arteriosus with color Doppler. (Normal physiology.) ?The ascending aorta is normal, without dilatation or narrowing. ?The aortic arch is normal, without dilatation, aneurysm or coarctation. The aortic isthmus is normal sized. ?The aortic isthmus diameter measures 3.4 mm distal to the left subclavian artery. (Z-Score: 1.05) ?The descending aorta is normal, without dilatation, narrowing or aneurysm. Effusion ?There is no pericardial effusion. ?No evidence of hydrops. Mitral Valve ?Value ?Units (Range) ? Z Score ? MV diam (lateral) 4C6.8 ?mm ? Tricuspid Valve ?Value ?Units (Range) ? Z Score ? TV diam (lateral) 4C7.8 ?mm ? Pulmonary Valve / RV ?Value ?Units (Range) ? Z Score ? PV jocelyne diam 2D ?5.3 ?mm ? Aorta ?Value ?Units (Range) ? Z Score ? Isthmus diam (SSN) ??3.4 ?mm ? All Z scores are estimated This report has been electronically signed by: Tarsha Tejada MD ? 02/28/2018 12:02:28 Images reviewed and interpretation verified [facility] Procedure Note Tarsha Tejada MD - 02/28/2018 Procedure: Pediatric Echocardiogram Patient: BAILEY DAS(Age): 1995(22y) Med Rec#: [id number] Sex: F [place] [facility] [place]t / Wt: (cm)/ (kg) Pt. Loc: Echo Lab Study Date: 02/28/2018 Pt. Type: Study Quality: Referring: Cameron Baldwin Referring: Edvin BALDWIN REBECCA Reading: Tarsha Tejada ([id number]) On Air Host: Pippa Franklin Diagnosis: *Abnormal ultrasonic finding on screening of mother (O28.3) BP: / SUMMARY: 1. A echocardiogram was performed at 25 weeks gestation (CHRISTIANO: 06/13/2018) due to an abnormality obstetric scan . Good quality images were obtained. The fetus is in vertex position. 2. Levocardia with normal segmental and conotruncal anatomy {S,D,S}. 3. Normal chamber dimensions, myocardial appearance, wall thickness, ventricular systolic function. 4. Valve structure and function appear normal. 5. Normal heart rate (153 bpm). Normal mechanical [place] interval (116 ms). No arrhythmia detected. 6. No cardiac structural abnormalities were identified. A persistent right umbilical vein is suspected, although views were limited by the position. 7. No hydrops. 8. No specific or cardiac follow-up is required on this basis of this study. 9. The limitations of echocardiography include the inability to diagnose patent ductus arteriosus, some atrial and ventricular septal defects, minor valve abnormalities and coarctation. FINDINGS: Venous Connections There are normal systemic venous connections, with the superior and inferior vena cavae returning to the right atrium. Normal spectral Doppler patterns in umbilical vein, ductus venosus, ductus arteriosus, and umbilical artery. At least one pulmonary vein from each side enters the left atrium. No pulmonary venous anomalies are detected. Atrial Septum There is a patent foramen ovale (PFO). There is [id number]-[id number] shunting across the patent foramen ovale with color Doppler. (Normal physiology.) Av Valves The tricuspid valve is functionally and structurally normal. The tricuspid valve diameter measures 7.8 mm in the lateral plane obtained from the A4C view. (Z-Score:0.20) The mitral valve is functionally and structurally normal. The mitral valve diameter measures 6.8 mm in the lateral plane obtained from the A4C view. (Z-Score:-0.59) Ventricles The right ventricle is of normal size. The right ventricular systolic function is normal. The left ventricular chamber size, wall thickness and systolic function are normal. The global left ventricular systolic function is normal. Ventricular Septum The interventricular septum is intact with no evidence of a ventricular septal defect. Semilunar Valves The pulmonary valve annulus diameter measures 5.3 mm. (Z-Score: 1.05) The pulmonary valve leaflets are of normal thickness. The aortic valve leaflets are of normal thickness. Thoracic Arteries The main pulmonary artery is normal, without dilatation, stenosis, or aneurysm. The great arteries are normally related. The right pulmonary artery has normal size, origin, and configuration. The left pulmonary artery has normal size, origin, and configuration. There is a patent ductus arteriosus. There is btwqy-ac-keah shunting across the patent ductus arteriosus with color Doppler. (Normal physiology.) The ascending aorta is normal, without dilatation or narrowing. The aortic arch is normal, without dilatation, aneurysm or coarctation. The aortic isthmus is normal sized. The aortic isthmus diameter measures 3.4 mm distal to the left subclavian artery. (Z-Score: 1.05) The descending aorta is normal, without dilatation, narrowing or aneurysm. Effusion There is no pericardial effusion. No evidence of hydrops. Mitral Valve Value Units (Range) Z Score MV diam (lateral) 4C6.8 mm Tricuspid Valve Value Units (Range) Z Score TV diam (lateral) 4C7.8 mm Pulmonary Valve / RV Value Units (Range) Z Score PV jocelyne diam 2D 5.3 mm Aorta Value Units (Range) Z Score Isthmus diam (SSN) 3.4 mm All Z scores are estimated This report has been electronically signed by: Tarsha Tejada MD 02/28/2018 12:02:28 Images reviewed and interpretation verified [facility] E Melissa Baldwin MD ECHO ORDERABLES * Miscellaneous Lab request (01/12/2018 4:07 PM EDT) Label Request received in lab. [facility] Blood specimen (specimen) 01/12/2018 4:07 PM EDT 01/12/2018 7:37 PM EDT Narrative Resulting Agency Comment Spec In Lab E Melissa Baldwin MD LAB SEND OUT [facility] [place] [address] documented in this encounter Visit Diagnoses Diagnosis Choroid plexus cyst of fetus affecting care of mother, antepartum, single or unspecified fetus Umbilical vein abnormality affecting , single or unspecified fetus anomaly Multiple congenital anomalies, so described Choroid plexus cyst of fetus affecting care of mother, antepartum, single or unspecified fetus Umbilical vein abnormality affecting , single or unspecified fetus anomaly Multiple congenital anomalies, so described documented in this encounter Care Teams Roof Assembler Relationship Specialty Start Date End Date Tania Leos, ROSS FURNACE OPERATOR [address] [place] [address] PCP - General Family Medicine 11/20/17 03/04/22 documented as of this encounter
--- OUTSIDE RECORDS SUMMARY | 2024-07-09 13:37 | XMS_ITS | Encounter Summary ---
[place] [address] Care Team Providers Care Slot Host Name Role Phone Darriusdianna Tania Tammy DOVE Primary Care Provider [phone] Reason for Visit * Reason Comments Ultrasound Finding Encounter Details Date Type Department Care Team (Late st Contact Info) Description 02/28/2018 10:00 AM EDT Office Visit [place] [address] Tarsha Tejada MD [address] [place] [address] PEDIATRIC [place] [address] Suspected anomaly, antepartum, single or unspecified fetus Social History Tobacco Use Types Packs/Day Years Used Date Smoking Tobacco: Former Cigarettes Smokeless Tobacco: Never Alcohol Use Standard Drinks/Week Comments No 0 (1 standard drink = 0.6 oz pur e alcohol) Comments Yes Sex and Gender Information Value Date Recorded Sex Assigned at Not on file Gender Identity Not on file Sexual Orientation Not on file documented as of this encounter Progress Notes * Tarsha Tejada MD - 02/28/2018 10:00 AM EDT Cardiology Clinic Primary OB provider: Reyna Nicolas CNM Indication for Evaluation: choroid plexus cyst, persistent right umbilical vein Patient history: I was asked by Dr. Melissa Baldwin to see Aruna Friedman for advice regarding cardiac risk associated with a persistent right umbilical vein. Aruna is a 22 y.o. female who is currently at 25 weeks gestation based on an EDC of 06/13/18. She has a history of a developmental delay elsy previous child born prematurely at 34 weeks gestation. She was evaluated by Dr. Baldwin from [facility] at 18 weeks gestation and the ultrasound was notable for a choroid plexus cyst and suspect persistent right umbilical vein. Cell free DNA testing was low risk. Medications: Current Outpatient Prescriptions on File Prior to Visit Medication Sig Dispense Refill ??? FLUoxetine (PROZAC) 20 mg Capsule take 1 capsule by mouth once daily 0 ??? acetaminophen (TYLENOL) 325 mg Tablet Take 2 tablets by mouth every 4 hours as needed for Pain.30 tablet 1 ??? ibuprofen (ADVIL;MOTRIN) 600 mg Tablet Take 1 tablet by mouth every 6 hours as needed for Pain.30 tablet 12 ??? vitamin with cuumerub-Zx-Wvgn-FA ( VITAMIN) Tablet Daily No current facility-administered medications on file prior to visit. Past Medical History: Patient Active Problem List Diagnosis Code ??? YORK (headache) R51 ??? ADHD (attention deficit hyperactivity disorder), combined type F90.2 ??? Major depressive disorder, recurrent episode, moderate (DEPRESSION) F33.1 ??? premature rupture of membranes (PPROM) with unknown onset of labor O42.919 ??? Contraception Z30.9 ??? PDA: patient was delivered at 26wks gestation Z87.798 Family Medical History: No known family history of congenital heart disease, other defects orgenetic syndromes. Social History: She has a 1 yo child, but does not have custody of this child. She admits to some tobacco use in the . The father of the baby is unknown. echocardiogram results: A complete echocardiogram was performed today which demonstrates: ?? Single intrauterine with levocardia, visceral situs solitus, [S,D,S] normal segmental anatomy with normal chamber dimensions. ?? heart rate was 153 bpm and the AV interval was 116 ms. Normal rhythm throughout. ?? The tricuspid valve appears normal. There is no evidence of tricuspid insufficiency. ?? The mitral valve appears normal. There is no evidence of mitral regurgitation. ?? Qualitatively, there is normal biventricular size and shortening. ?? No evidence of pulmonary stenosis or insufficiency. ?? No evidence of aortic stenosis or insufficiency. ?? Flow across the aortic arch appears unobstructed with no evidence of coarctation of the aorta. ?? Ductus arteriosus with nonrestricted right to left flow. ?? Moderate size foramen ovale with right to left flow. ?? No evidence of a VSD. ?? No evidence of a pericardial effusion. ? Normal umbilical artery and umbilical vein flow patterns. Normal flow pattern in the ductus venosus. A persistent right umbilical vein is suspected. ?? See full report for further details. Diagnosis: 22 y.o. female at 25 weeks gestation Previous ultrasound notable for a choroid plexus cyst and persistent right umbilical vein. Cell free DNA testing was low risk. No evidence of a cardiac abnormality on echocardiogram today. A persistent right umbilical vein is again suspected. Recommendation: ? I have reviewed normal cardiac anatomy with Aruna and relayed that I see no evidence of a major structural cardiac abnormality on my imaging today. We discussed the presence of a persistent right umbilical vein. I have reassured her that in the majority of cases with normal cardiac anatomy, a PRUV is a benign and isolated finding. ??? I have also relayed that echocardiography may not be able to detect certain septal defects, coarctation of the aorta, or subtle valve abnormalities, nor can it predict the persistence of structures related to circulation such as a patent foramen ovale or a patent ductus arteriosus. Therefore, if there is any suspicion of a cardiac abnormality after , further evaluation would be warranted. Otherwise no specific Cardiology follow up for the child is needed. ??? Aruna does not require further follow up in our clinic unless additional concerns arise. I appreciate the opportunity to participate in the care of this patient. Please feel free to contact me for any further questions or concerns. Total visit time was 30 minutes with more than 50 percent of the time spent in counseling to discuss normal cardiac anatomy and physiology, review of today's echocardiogram results and review of those findings which can and cannot be prenatally detected as described above. documented in this encounter Plan of Treatment Not on file documented as of this encounter Visit Diagnoses Diagnosis Suspected anomaly, antepartum, single or unspecified fetus documented in this encounter Care Teams Slot Host Relationship Specialty Start Date End Date Tania Leos APRN [address] [place] [address] PCP - General Family Medicine 11/20/17 03/04/22 documented as of this encounter
--- OUTSIDE RECORDS SUMMARY | 2024-07-09 13:37 | XMS_ITS | Encounter Summary ---
Author Organization [facility] Address [facility] [place] [address] Care Team Providers Care Side Laster Name Role Phone Dafne Tania Tammy DOVE Primary Care Provider [phone] Reason for Visit * Auth/Cert Specialty Diagnoses / Procedures Referred By Contac t Referred To Contact Diagnoses labor IUP @33 Procedures LABOR Referral ID Status Reason Start Date Expiration Date Visits Re quested Visits Authorized [id number] 1 1 Encounter Details Date Type Department Care Team (Late st Contact Info) Description 05/06/2018 1:54 PM EST [place] [id number] Viky Chavira MD [facility] DR [place] [address] Amilcar Mena MD [facility] DR [place] [address] Anesthesia Record Procedure Summary Procedure Name Responsible Anesthesiologist Anesthesia Start Time Anesthesia Stop Time Labor Analgesia (proc) Events Date Time Event Comment 05/06/2018 1325 AN Verify 1340 Labor Neuraxial Meds Name Total Lidocaine 1% 2 mL fentaNYL 2 mcg/mL, BUpivacai ne (MARCAINE) 0.125% (1.25 mg/mL)(1/8%) in sodium chloride 0.9% 250 mL epidural 5 mL sodium chloride 0.9 % flush 5-20 mL 10 m L * Agents No agents on file. * Blood No blood administrations on file. Lines, Drains, and Airways Type Details Placement Removal (RETIRED) Urethral Catheter 05/06/18; 1425 05/06/18 1425 by Emily Garcia RN Epidural 05/06/18; 1356 (created via procedure documentation); 05/06/18; 1530 05/06/18 1356 by Zack Lopez MD 05/06/18 1530 by Madelin Camp RN documented in this encounter Social History Tobacco Use Types Packs/Day Years Used Date Smoking Tobacco: Former Cigarettes Q uit: 07/20/2016 Smokeless Tobacco: Never Alcohol Use Standard Drinks/Week Comments No 0 (1 standard drink = 0.6 oz pur e alcohol) Comments Yes Sex and Gender Information Value Date Recorded Sex Assigned at Not on file Gender Identity Not on file Sexual Orientation Not on file documented as of this encounter OR Notes * Anesthesia Postprocedure Evaluation - Amilcar Mena - 05/07/2018 9:44 AM EST [facility] [place] Department of Anesthesiology Post-procedure Note Patient: Aruna Friedman Procedure Summary Date: 04/26/18 Room / Location: Anesthesia Start: Anesthesia Stop: Procedure: Labor Analgesia Diagnosis: Scheduled Providers: Responsible Provider: Anesthesia Type: Not recorded ASA Status: 2 All Anesthesia Providers: No anesthesia staff entered. Most Recent Vitals: 05/06/182039 BP: 128/75 Pulse: 73 Resp: 16 Temp: 36.6 ??C (97.9 ??F) SpO2: 98% Pain Patient Location: Floor Level of Consciousness: Awake and Alert Pain Management: Satisfactory Analgesia PONV: None Cardiovascular Status: At Baseline Respiratory Status: At Baseline Postoperative Fluid Status: Intravascular EUvolemia Possible Anesthetic Complications: NONE apparent at time of evaluation Final Primary Anesthesia Type: Epidural (The anesthetic type performed was the same as planned.) Comments: Patient seen and examined. Regional site checked, no evidence of hematoma, infection, nottender to palpation. No headache. Denies numbness/parethesias. Ambulating and voiding without issue. * Anesthesia Procedure Notes - Zack Lopez - 05/06/2018 1:55 PM EST Associated Order(s): Neuraxial for Labor Only Procedure: Labor Analgesia Neuraxial Block Labor Analgesia Type: Epidural The patient was greeted. The sedation plan, its benefits, risks and alternatives were discussed with the patient. The patient has consented to the procedure. The medical history and chart were reviewed. The timeout was performed. Start time: 05/06/2018 1:25 PM End time: 05/06/2018 1:52 PM [facility] Patient Prep Position: Sitting Prep: Chlorhexidine, Patient Draped, Hand Hygiene, Hat, Mask and Sterile Gloves Injection technique: continuous Procedure Technique Level of needle insertion: L3-4 Needle approach: midline Needle Type: Tuohy Gauge: 18 Needle length: 3.5 in Needle insertion depth when BRIAN achieved: 6.5 cm Technique for Loss of Resistance: BRIAN air and BRIAN saline Number of attempts: 1 Test dose Lidocaine 1.5% w/Epinephrine 1:2000,000 3mL Events/Notes Events: None Resident/SHOP MANAGER: Zack Lopez MD Second Resident/SHOP MANAGER: Fellow: Attending Physician: Ashish Bey MD ~~~~~~~~~~~~~~~~~~~~~~~~~~~~~~~~~~~~~~~~~~~~~~~~~~~~~~~~~~~~ * Anesthesia Preprocedure Evaluation - Amilcar Mena - 05/01/2018 8:56 AM EST Pre-Anesthesia Evaluation for: Aruna Saucedo Elder a 23 y.o. female. Patient Active Problem List Diagnosis ??? Premature cervical dilation in third trimester ??? Intellectual disability ??? labor ??? premature rupture of membranes (PPROM) with unknown onset of labor ??? Contraception Ashish Consent Form Signed Date: 07/19/2016 Ashish Consent Form Scanned no, in folder on BP Added to Shared List yes Questionnaire Completed yes LARC Device labeled in safe area? no LARC Device Type: Liletta Insertion Date 07/20/16 Was there Contamination? No ??? PDA: patient was delivered at 26wks gestation ??? Major depressive disorder, recurrent episode, moderate (DEPRESSION) ??? YORK (headache) ??? ADHD (attention deficit hyperactivity disorder), combined type Past Medical History: Diagnosis Date ??? ADHD (attention deficit hyperactivity disorder) ??? Major depression ??? Premature Born 4 months early Past Surgical History: Procedure Laterality Date ??? PATENT DUCTUS ARTERIOUS LIGATION ??? TONSILLECTOMY AND ADENOIDECTOMY Social History Tobacco Use ??? Smoking status: Former Smoker Packs/day: 0.25 Types: Cigarettes Last attempt to quit: 07/20/2016 Years since quittin.7 ??? Smokeless tobacco: Never Used Substance Use Topics ??? Alcohol use: No Social History Substance and Sexual Activity Drug Use No No Known Allergies Medications: MAR and/or home medications have been reviewed. Physical Exam: There were no vitals filed for this visit. There is no height or weight on file to calculate BMI. Airway Assessment: Mallampati: I TM distance: >3 FB Neck ROM: full Cardiovascular Assessment: Pulmonary Assessment: Dental Assessment: - normal exam Misc Assessment: IV access: Peripheral line Anesthesia Plan: ASA 2 with a(n) intravenous induction Pt interviewed and examined. Pt is a 23 y.o. female who is and 33w6d here for PPROM with advanced dilation. Medical history, medications, allergies, and social history reviewed, significant for cognitive delay, ADHD, depression, previous 34week delivery. Epidural with previous , loss @ 7cm, no significant difficulty with placement noted. Patient thinks she would like another epidural if there is time with this labor but unsure if there will be. Discussed that if she feels she needs some help with pain control to have anesthesia called and that we will determine if there is anything we can provide her. Labs reviewed and listed below. There is no documented history of signific ant cardiopulmonary, hepatobiliary, or renal disease. No contraindication to a neuraxial technique. Consent obtained. Risk, benefits discussed; questionsanswered. Allergies/ADR: NKDA Personal history of problems with anesthesia: Denies Family history of anesthesia problems: Denies Bleeding Disorder: Denies Asthma: Denies HTN: Denies Prior back surgeries/pathology: Denies LE numbness/weakness: Denies Lab Results Component Value Date/Time HGB 12.7 04/25/2018 07:06 PM PLATELET 227 04/25/2018 07:06 PM Discussed potential need for labor analgesia and/or anesthesia to possibly include epidural, spinal, CSE, and anesthesia for (which includes all of the above with the addition of general anesthesia). Answered all questions, consent obtained and placed in patient's chart. Viky Chavira MD 05/01/2018 Region - Other Informed Consent: PAT Staff Note documented in this encounter Plan of Treatment Not on file documented as of this encounter Procedures Procedure Name Priority Date/Time Associated Diagnosis Comments ANES PLACEHOLDER FOR LABOR EPIDURAL Routine 05/06/2018 1:55 PM EST documented in this encounter Results * [id number] (05/06/2018 1:55 PM EST) Narrative Ashish Bey MD - 05/06/2018 1:55 PM EST Zack Lopez MD ? 05/06/2018 ??1:56 PM Procedure: ?? Labor Analgesia Neuraxial Block Labor Analgesia Type: Epidural The patient was greeted. The sedation plan, its benefits, risks and alternatives were discussed with the patient. ??The patient has consented to the procedure. ??The medical history and chart were reviewed. ??The timeout was performed. Start time: 05/06/2018 1:25 PM End time: 05/06/2018 1:52 PM [facility] Patient Prep Position: Sitting Prep: Chlorhexidine, Patient Draped, Hand Hygiene, Hat, Mask and Sterile Gloves Injection technique: continuous Procedure Technique Level of needle insertion: L3-4 Needle approach: midline Needle Type: Tuohy Gauge: 18 Needle length: 3.5 in Needle insertion depth when BRIAN achieved: 6.5 cm Technique for Loss of Resistance: BRIAN air and BRIAN saline Number of attempts: 1 Test dose Lidocaine 1.5% w/Epinephrine 1:2000,000 3mL Events/Notes Events: ??None Resident/SHOP MANAGER: ?Zack Lopez MD Second Resident/SHOP MANAGER: Fellow: ? Attending Physician: ? Ashish Bey MD ~~~~~~~~~~~~~~~~~~~~~~~~~~~~~~~~~~~~~~~~~~~~~~~~~~~~~~~~~~~~ Ashish Bey MD [employer]ER [employer]ER [facility] documented in this encounter Visit Diagnoses Not on filedocumented in this encounter Administered Medications Active Administered Medications - up to 3 most recent administrations Medication Order MAR Action Action Date Dose Rate Site lidocaine (XYLOCAINE) 10 mg/mL (1 %) injection Subcutaneous, PRN, Starting on 05/06/18 at 1337, Until Discontinued, Anesthesia Intra-op, Routine Given 05/06/2018 1:37 PM EST 2 mLs Inactive Administered Medications - up to 3 most recent administrations Medication Order MAR Action Action Date Dose Rate Site fentaNYL 2 mcg/mL, BUpivacaine (MARCAINE) 0.125% (1.25 mg/mL)(1/8%) in sodium chloride 0.9% 250 mL epidural Epidural, PCEA Dose: 5 mL, PCEA Frequency: Every 20 minutes, Maximum rate for continuous infusion 14 mL per hour Maximum total epidural rate (continuous and PCEA bolus) is 25 mL per hour New Bag 05/06/2018 2:00 PM EST 10 mL/hr 10 mL/hr Given 05/06/2018 1:43 PM EST 5 mLs sodium chloride 0.9 % flush 5-20 mL 5-20 mL, Intravenous, EVERY 1 MIN PRN, Starting on 05/06/18 at 1057, Until 05/06/18 at 1514, flush, Flush pertains to all indwelling lines. Flush per protocol found in the job aid using the link provided on this medication record., Routine Given 05/06/2018 1:43 PM EST 10 mLs documented in this encounter Care Teams Side Laster Relationship Specialty Start Date End Date Tania Leos APRN [address] [place] [address] PCP - General Family Medicine 11/20/17 03/04/22 documented as of this encounter
--- OUTSIDE RECORDS SUMMARY | 2024-07-09 13:37 | XMS_ITS | Encounter Summary ---
Author Organization [facility] Address [facility] [place] [address] Care Team Providers Care Environmental Epidemiologist Name Role Phone Darriusdianna Tania Tammy DOVE Primary Care Provider Encounter Details Date Type Department Care Team (Latest Contact Info) Description 03/18/2021 11:30 AM EDT - 03/18/2021 11:59 PM EDT Hospital [place] [address] Edvin Baldwin MD [facility] OBSTETRICS [place] [address] History of delivery, currently Discharge Disposition: Home Social History Tobacco Use Types Packs/Day Years [...] on file documented as of this encounter Medications at Time of Discharge Medication Sig Dispensed Refills Start Date End Date NovoLIN N Flexpen Insulin Pen INJECT 4 UNITS UNDER THE SKIN EVERY NIGHT 01/15/2021 BD Ultra-Fine Mini Pen Needle 31 gauge x 3/16 Needle USE PEN NEEDLES DIRECTED AT BEDTIME 01/15/2021 loratadine (Claritin) 10 mg Tablet TAKE 1 TABLET BY MOUTH EVERY DAY 11/06/2020 OneTouch Delica Plus Lancet 30 gauge Misc USE TO TEST BLOOD GLUCOSE FOUR TIMES DAILY 12/23/2020 OneTouch Ultra2 Meter Misc USE TO TEST BLOOD GLUCOSE FOUR TIMES DAILY 12/23/2020 OneTouch Ultra Blue Test Strip Strip USE TO TEST BLOOD GLUCOSE FOUR TIMES DAILY 12/23/2020 Alcohol Prep Pads Pads, Medicated USE 1 PAD TOPICALLY FOUR TIMES DAILY 12/23/2020 Ventolin HFA 90 mcg/actuation HFA Aerosol Inhaler INHALE 2 PUFFS BY MOUTH EVERY 4 HOURS NEEDED FOR SHORTNESS OF BREATH OR WHEEZING 08/20/2020 hydrOXYzine (Atarax) 25 mg Tablet TAKE 1 TABLET BY MOUTH TWICE DAILY NEEDED FOR ANXIETY 09/11/2020 acetaminophen (TYLENOL) 325 mg Tablet Take 2 tablets by mouth every 6 hours as needed for Pain. 30 tablet 05/08/2018 docusate sodium (COLACE) 50 mg Capsule Take 1 capsule by mouth 2 times daily as needed for Constipation. 10 capsule 05/08/2018 polyethylene glycol (MIRALAX) 17 gram Powder in Packet Take 17 g by mouth daily as needed. 14 each 05/08/2018 FLUoxetine (PROZAC) 20 mg CapsuleIndications:H/O delivery, currently take 1 capsule by mouth once daily 0 11/21/2017 vitamin with xjfaujkn-Yp-Mkxx-FA ( VITAMIN) TabletIndications:Super vision of high risk in second trimester,Medication exposure during first trimester of Daily 12/29/2015 documented as of this encounter Plan of Treatment Not on file documented as of this encounter Procedures Procedure Name Priority Date/Time Associated Diagnosis Comments US OB CERVICAL LENGTH TRANSVAGINAL Routine 03/18/2021 12:10 PM EDT History of delivery, currently documented in this encounter Results * US OB Cervical Length Transvaginal (03/18/2021 12:10 PM EDT) Anatomical Region Laterality Modality Pelvis, Abdomen Ultrasound 03/18/2021 11:5 4 AM EDT Impressions 03/18/2021 2:32 PM EDT 2nd Trimester - Cervical Length - Summary Single intrauterine with a gestational age of 22w 6d based on LMP ??(10/09/20) Cervical length measures 2.7 cm. No change with fundal pressure. No dynamic change observed. Amniotic fluid volume is subjectively normal for gestational age. Thank you for letting us participate in the care of this patient. If you are a health care provider and have any questions regarding this report, please contact the number above. For patients who have questions, please contact the health care associate that requested your imaging first. ? Cameron Baldwin, Staff Physician Electronically Signed Final Report ?? 03/18/2021 02:31 pm Narrative 03/18/2021 2:32 PM EDT OBSTETRICS REPORT ?(Signed Final 03/18/2021 02:31 pm) PATIENT INFO: ID #: ? [id number] ?: ??[birth year] (25 yrs)(F) Name: ? HARLEY Tomer Saucedo YOUNG ? Visit Date: 03/18/2021 11:54 am PERFORMED BY: Performed By: ? Maral SWENSON, ??Jackie Attending: ?Cameron Baldwin MD Referred By: ?MADELINE ROY Location: ? [place] SERVICE(S) PROVIDED: UOBTVCER - Transvaginal ??2nd Trimester - ?64933 Cervical Length - [id number] INDICATIONS: 22 weeks gestation of ?Z3A.22 h/o PTD; cervical length TECHNIQUE/SCAN QUALITY: Technique: ?? Transducer ID#:[id number] VITAL SIGNS: Weight (lb): 193.0 Height: ?5'2 ? BMI: ? 35.3 EVALUATION: Num Of Fetuses: ? 1 Heart Rate(bpm): ??127 Cardiac Activity: ? Observed, normal rhythm Presentation: ? Cephalic Placenta: ? Posterior P. Cord Insertion: ?Within Normal Limits Amniotic Fluid KARTIK FV: ?Subjectively normal for gestational age --------- BIOMETRY: --------- OB HISTORY: Blood Type: ?? O+ : ?3 ? Ryan: ?? 2 Living: ? 2 GESTATIONAL AGE: LMP: ? 22w 6d ?Date: ??10/09/20 ? CHRISTIANO: ?? 07/16/21 Best: ?22w 6d ?? Det. By: ??LMP ??(10/09/20) ?CHRISTIANO: ?? 07/16/21 -------- ANATOMY: -------- Cranium: ? Visualized Heart: ? Visualized Stomach: ? Visualized Kidneys: ? Visualized Bladder: ? Visualized CERVIX UTERUS ADNEXA: Right Ovary Not visualized Left Ovary Not visualized Cul De Sac No fluid seen Procedure Note Edvin Baldwin MD - 03/18/2021 OBSTETRICS REPORT (Signed Final 03/18/2021 02:31 pm) PATIENT INFO: ID #: [id number] : [birth year] (25 yrs)(F) Name: HARLEY FRIEDMAN Visit Date: 03/18/2021 11:54 am PERFORMED BY: Performed By: Jackie Alicia RDMS Attending: Cameron Baldwin MD Referred By: MADELINE ROY Location: [place] SERVICE(S) PROVIDED: UOBTVCER - Transvaginal 2nd Trimester - 54575 Cervical Length - [id number] INDICATIONS: 22 weeks gestation of Z3A.22 h/o PTD; cervical length TECHNIQUE/SCAN QUALITY: Technique: Transducer ID#:[id number] VITAL SIGNS: Weight (lb): 193.0 Height: 5'2 BMI: 35.3 EVALUATION: Num Of Fetuses: 1 Heart Rate(bpm): 127 Cardiac Activity: Observed, normal rhythm Presentation: Cephalic Placenta: Posterior P. Cord Insertion: Within Normal Limits Amniotic Fluid KARTIK FV: Subjectively normal for gestational age --------- BIOMETRY: --------- OB HISTORY: Blood Type: O+ : 3 Ryan: 2 Livin GESTATIONAL AGE: LMP: 22w 6d Date: 10/09/20 CHRSITIANO: 07/16/21 Best: 22w 6d Det. By: LMP (10/09/20) CHRISTIANO: 07/16/21 -------- ANATOMY: -------- Cranium: Visualized Heart: Visualized Stomach: Visualized Kidneys: Visualized Bladder: Visualized CERVIX UTERUS ADNEXA: Right Ovary Not visualized Left Ovary Not visualized Cul De Sac No fluid seen IMPRESSION 2nd Trimester - Cervical Length - Summary Single intrauterine with a gestational age of 22w 6d based on LMP (10/09/20) Cervical length measures 2.7 cm. No change with fundal pressure. No dynamic change observed. Amniotic fluid volume is subjectively normal for gestational age. Thank you for letting us participate in the care of this patient. If you are a health care provider and have any questions regarding this report, please contact the number above. For patients who have questions, please contact the health care associate that requested your imaging first. Cameron Baldwin, Staff Physician Electronically Signed Final Report 03/18/2021 02:31 pm E Melissa Baldwin MD IMG OB ORDERAB LES documented in this encounter Visit Diagnoses Diagnosis History of delivery, currently with history of pre-term labor documented in this encounter Care Teams Environmental Epidemiologist Relationship Specialty Start Date End Date Tania Leos, URBAN RENEWAL MANAGER [address] [place] [address] PCP - General Family Medicine 11/20/17 03/04/22 documented as of this encounter
--- OUTSIDE RECORDS SUMMARY | 2024-07-09 13:37 | XMS_ITS | Encounter Summary ---
Author Organization [facility] Address [facility] [place] [address] Care Team Providers Care Specialty Manufacturing Supervisor Name Role Phone Dafne Tania Tammy DOVE Primary Care Provider [phone] Encounter Details Date Type Department Care Team (Latest Contact Info) Description 01/12/2018 1:42 PM EDT - 01/12/2018 11:59 PM EDT Hospital [place] [address] Edvin Baldwin MD [facility] OBSTETRICS [place] [address] H/O delivery, currently Discharge Disposition: Home Social History [...] Sig Dispensed Refills Start Date End Date FLUoxetine (PROZAC) 20 mg CapsuleIndications:H/O delivery, currently take 1 capsule by mouth once daily 0 11/21/2017 vitamin with jawewbxf-Pa-Xpvy-FA ( VITAMIN) TabletIndications:Super vision of high risk in second trimester,Medication exposure during first trimester of Daily 12/29/2015 acetaminophen (TYLENOL) 325 mg Tablet Take 2 tablets by mouth every 4 hours as needed for Pain. 30 tablet 1 07/22/2016 05/08/2018 ibuprofen (ADVIL;MOTRIN) 600 mg Tablet Take 1 tablet by mouth every 6 hours as needed for Pain. 30 tablet 12 07/22/2016 05/08/2018 documented as of this encounter Plan of Treatment Not on file documented as of this encounter Procedures Procedure Name Priority Date/Time Associated Diagnosis Comments US OB DETAILED MORPHOLOGY Routine 01/12/2018 3:14 PM EDT H/O delivery, currently documented in this encounter Results * US OB Detailed [...] 04:54 pm) PATIENT INFO: ID #: ? [id number] ?: ??[birth year] (22 yrs) Name: ? HARLEY Saucedo YOUNG ? Visit Date: 01/12/2018 02:03 pm PERFORMED BY: Performed By: ? Siri Sanders RDMS Attending: ?Denny WELLS, E ??Melissa Referred By: ?MAGALY WEBSTER MD Location: ? [place] SERVICE(S) PROVIDED: ??[facility] - Detailed Morphology - [id number] ? [id number] ??UOBTV - Viability - Cervical Length -Transvaginal - ?? 66742 ??[id number] INDICATIONS: ??18 weeks gestation of ?Z3A.18 ??H/O [...] Arch: ? Visualized SVC: ? Visualized Cardiac [place]: ?Visualized Diaphragm: ? Visualized 3 Vessel View: [...] 01/12/2018 04:54 pm) PATIENT INFO: ID #: [id number] : [birth year] (22 yrs) Name: HARLEY RFIEDMAN Visit Date: 01/12/2018 02:03 pm PERFORMED BY: Performed By: Siri Sanders RDMS Attending: Edvin Baldwin MD Referred By: MAGALY WEBSTER MD Location: [place] SERVICE(S) PROVIDED: [facility] - Detailed Morphology - [id number] UOBTV - Viability - Cervical Length -Transvaginal - 55190 [id number] INDICATIONS: 18 weeks gestation of Z3A.18 H/O [...] Visualized Ductal Arch: Visualized SVC: Visualized Cardiac [place]: Visualized Diaphragm: Visualized 3 Vessel View: Visualized [...] labor documented in this encounter Care Teams Specialty Manufacturing Supervisor Relationship Specialty Start Date End Date Tania Leos APRN [address] [place] [address] PCP - General Family Medicine 11/20/17 03/04/22 documented as of this encounter
--- OUTSIDE RECORDS SUMMARY | 2024-07-09 13:37 | XMS_ITS | Encounter Summary ---
[place] [address] Care Team Providers Care Tungsten Refiner Name Role Phone Darriusdianna Tania Tammy DOVE Primary Care Provider Encounter Details Date Type Department Care Team (Latest Contact Info) Description 01/12/2018 4:00 PM EDT Laboratory Appointment Lab [address] [place] [address] Choroid plexus cyst of fetus affecting care of mother, antepartum, single or unspecified fetus Social History [...] on file documented as of this encounter Plan of Treatment Not on file documented as of this encounter Procedures Procedure Name Priority Date/Time Associated Diagnosis Comments MISCELLANEOUS LAB REQUEST Routine 01/12/2018 4:07 PM EDT Choroid plexus cyst of fetus affecting care of mother, antepartum, single or unspecified fetus documented in this encounter Results * Miscellaneous Lab request (01/12/2018 4:07 PM EDT) Label Request received in lab. [facility] Blood specimen (specimen) 01/12/2018 4:07 PM EDT 01/12/2018 7:37 PM EDT Narrative Resulting Agency Comment Spec In Lab E Melissa Baldwin MD LAB SEND OUT [facility] [place] [address] documented in this encounter Visit Diagnoses Diagnosis Choroid plexus cyst of fetus affecting care of mother, antepartum, single or unspecified fetus documented in this encounter Care Teams Tungsten Refiner Relationship Specialty Start Date End Date Tania Leos APRN [address] [place] [address] PCP - General Family Medicine 11/20/17 03/04/22 documented as of this encounter
--- OUTSIDE RECORDS SUMMARY | 2024-07-09 13:37 | XMS_ITS | Encounter Summary ---
Author Organization [facility] Address [facility] [place] [address] Care Team Providers Care Automatic Corn Grinder Operator Name Role Phone DarriusTania bustamante Tammy DOVE Primary Care Provider [phone] Reason for Visit * Reason Comments Ultrasound Encounter Details Date Type Department Care Team (Late st Contact Info) Description 03/10/2021 1:00 PM EDT Routine Obstetrics [place] [address] Edvin Baldwin MD [facility] DR OBSTETRICS [place] [address] GA: 21w5d Social History Tobacco Use Types Packs/Day Years [...] Sign Reading Time Taken Comments Blood Pressure 120/68 03/10/2021 12:46 PM EDT Pulse - - Temperature - - Respiratory Rate - - Oxygen Saturation - - Inhaled Oxygen Concentration - - Weight 88 kg (193 lb 14.4 oz) 03/10/2021 12:46 P M EDT Height - - Body Mass Index 34.36 04/30/2018 3:08 PM EST documented in this encounter Progress Notes * Edvin Baldwin MD - 03/10/2021 1:00 PM EDT Gestational age: 21w5d, returns for follow-up ultrasound and limited MFM consult. Patient Active Problem List Diagnosis Date Noted ??? Premature ??? Premature cervical dilation in third trimester 2018 ??? Intellectual disability 2018 ??? labor 04/25/2018 ??? premature rupture of membranes (PPROM) with unknown onset of labor 07/19/2016 ??? Contraception 07/19/2016 ??? PDA: patient was delivered at 24 5/7 wks gestation 01/27/2016 ??? Major depressive disorder, recurrent episode, moderate (DEPRESSION) 05/15/2014 ??? YORK (headache) 02/13/2014 ??? ADHD (attention deficit hyperactivity disorder), combined type 02/13/2014 Resolved Hospital Problems No resolved problems to display. Ultrasound Date: 03/10/2021 Cervical length 2.6cm, no dynamic change Physical Exam BP 120/68 Wt 88 kg (193 lb 14.4 oz) LMP 10/09/2020 BMI 34.36 kg/m?? General: alert, well appearing, in no apparent distress, oriented to person, place and time HEENT: normocephalic, atraumatic Abdomen: Gravid, soft, nontender; FHT 145bpm Extremities: no edema Neurologic:alert, oriented, normal speech, no focal findings or movement disorder noted Psychiatric: Affect is Appropriate. Assessment and Recommendations: 25 y.o. year old female at 21w5d weeks gestation with slightly shorter cervical length, butstill above the cut off for exam indicated cerclage. I recommend one final cervical length in a week. If the cervical length is <2.5cm then cerclage would be indicated. We have asked Harley to present NPO for evaluation. I appreciate the opportunity to be involved in this patients care, and am available if further questions should arise. Edvin BALDWIN MD 03/10/2021 Cc: Mari Roy CNM, with copy of ultrasound report documented in this encounter Plan of Treatment Not on file documented as of this encounter Results * US OB Cervical [...] who have questions, please contact the health career portals teacher that requested your imaging first. ? Cameron Baldwin, Staff Physician Electronically Signed Final Report ?? 03/18/2021 02:31 pm Narrative 03/18/2021 2:32 PM EDT OBSTETRICS REPORT ?(Signed Final 03/18/2021 02:31 pm) PATIENT INFO: ID #: ? [id number] ?: ??[birth year] (25 yrs)(F) Name: ? HARLEY Saucedo YOUNG ? Visit Date: 03/18/2021 11:54 am PERFORMED BY: Performed By: ? Maral SWNESON, ??Jackie Attending: ?Cameron Baldwin MD Referred By: ?MARI KIRILL Location: ? [place] SERVICE(S) PROVIDED: UOBTVCER - Transvaginal ??2nd Trimester - ?67544 Cervical Length - [id number] INDICATIONS: 22 weeks gestation of ?Z3A.22 h/o [...] 03/18/2021 02:31 pm) PATIENT INFO: ID #: [id number] : [birth year] (25 yrs)(F) Name: HARLEY FRIEDMAN Visit Date: 03/18/2021 11:54 am PERFORMED BY: Performed By: Jackie Alicia RDMS Attending: Cameron Baldwin MD Referred By: MARI ROY Location: [place] SERVICE(S) PROVIDED: UOBTVCER - Transvaginal 2nd Trimester - 65046 Cervical Length - [id number] INDICATIONS: 22 weeks gestation of Z3A.22 h/o [...] GESTATIONAL AGE: LMP: 22w 6d Date: 10/09/20 CHRISTIANO: 07/16/21 Best: 22w 6d Det. By: LMP [...] who have questions, please contact the health career portals teacher that requested your imaging first. Cameron Baldwin, Staff Physician Electronically Signed Final Report 03/18/2021 02:31 pm E Melissa [facility] MD [facility] documented in this encounter Visit Diagnoses Diagnosis History of delivery, currently with history of pre-term labor History of delivery, currently with history of pre-term labor documented in this encounter Care Teams Automatic Corn Grinder Operator Relationship Specialty Start Date End Date Tania Leos APRN [address] [place] [address] PCP - General Family Medicine 11/20/17 03/04/22 documented as of this encounter
--- OUTSIDE RECORDS SUMMARY | 2024-07-09 13:37 | XMS_ITS | Encounter Summary ---
Author Organization [facility] Address [facility] [place] [address] Care Team Providers Care Cisco Network Engineer Name Role Phone Dafne Tania Tammy DOVE Primary Care Provider [phone] Encounter Details Date Type Department Care Team (Latest Contact Info) Description 01/29/2021 9:55 AM EDT - 01/29/2021 11:59 PM EDT Hospital En[place] [address] Johan Zapata MD [facility] [place] [address] History of delivery, currently Discharge Disposition: Home [...] mouth once daily 0 11/21/2017 vitamin with ozpzekrv-Wi-Gfbb-FA ( VITAMIN) TabletIndications:Supe rvision of high risk in second trimester,Medication exposure during first trimester of Daily 12/29/2015 ibuprofen (ADVIL;MOTRIN) 200 mg Tablet Take 3 tablets by mouth every 6 hours as needed for Pain. 30 tablet 05/08/2018 02/19/2021 documented as of this encounter Plan of Treatment Not on file documented as of this encounter Procedures Procedure Name Priority Date/Time Associated Diagnosis Comments US OB CERVICAL LENGTH TRANSVAGINAL Routine 01/29/2021 10:21 AM EDT History of delivery, currently documented in this encounter Results * US OB Cervical Length Transvaginal (01/29/2021 10:21 AM EDT) Anatomical Region Laterality Modality Pelvis, Abdomen Ultrasound 01/29/2021 9:57 AM EDT Impressions 01/29/2021 10:31 AM EDT 2nd Trimester - Cervical Length - Summary Single intrauterine with a gestational age of 16w 0d based on LMP ??(10/09/20) Cervical length measures 3.2 cm. No change with fundal pressure. No dynamic change observed. Amniotic fluid volume is Too early to evaluate. Thank you for letting us participate in the care of this patient. If you are a health care provider and have any questions regarding this report, please contact the number above. For patients who have questions, please contact the health home health aide caregiver that requested your imaging first. ?Iona Ellison, Aluminum Sheet Cutter Electronically Signed Final Report ?? 01/29/2021 10:31 am Narrative 01/29/2021 10:31 AM EDT OBSTETRICS REPORT ?(Signed Final 01/29/2021 10:31 am) PATIENT INFO: ID #: ? [id number] ?: ??[birth year] (25 yrs)(F) Name: ? HARLEY Tomer FRIEDMAN ? Visit Date: 01/29/2021 09:57 am PERFORMED BY: Performed By: ? Archana Hendricks RDMS Attending: ?Terra WELLS, Iona Cho Referred By: ?JOHAN ZAPATA Location: ? [place] SERVICE(S) PROVIDED: UOBTVCER - Transvaginal ??2nd Trimester - ?98700 Cervical Length - [id number] INDICATIONS: 16 weeks gestation of ?Z3A.16 History labor TECHNIQUE/SCAN QUALITY: Technique: ?? Transducer ID#:[id number] EVALUATION: Num Of Fetuses: ? 1 Pole: ? Visualized Heart Rate(bpm): ??143 Cardiac Activity: ? Observed, normal rhythm Presentation: ? Cephalic Placenta: ? Posterior Amniotic Fluid KARTIK FV: ?Too early to evaluate --------- BIOMETRY: --------- OB HISTORY: : ?3 ? Term: ?? 2 GESTATIONAL AGE: LMP: ? 16w 0d ?Date: ??10/09/20 ? CHRISTIANO: ?? 07/16/21 Best: ?16w 0d ?? Det. By: ??LMP ??(10/09/20) ?CHRISTIANO: ?? 07/16/21 CERVIX UTERUS ADNEXA: Cervix Length: ?3.2 ??cm. No change with fundal pressure Right Ovary Not visualized Left Ovary Not visualized Cul De Sac No fluid seen Procedure Note Iona Ellison MD - 01/29/2021 OBSTETRICS REPORT (Signed Final 01/29/2021 10:31 am) PATIENT INFO: ID #: [id number] : [birth year] (25 yrs)(F) Name: HARLEY FRIEDMAN Visit Date: 01/29/2021 09:57 am PERFORMED BY: Performed By: Archana Hendricks RDMS Attending: Iona Ellison MD Referred By: JOHAN ZAPATA Location: [place] SERVICE(S) PROVIDED: UOBTVCER - Transvaginal 2nd Trimester - 30475 Cervical Length - [id number] INDICATIONS: 16 weeks gestation of Z3A.16 History labor TECHNIQUE/SCAN QUALITY: Technique: Transducer ID#:[id number] EVALUATION: Num Of Fetuses: 1 Pole: Visualized Heart Rate(bpm): 143 Cardiac Activity: Observed, normal rhythm Presentation: Cephalic Placenta: Posterior Amniotic Fluid KARTIK FV: Too early to evaluate --------- BIOMETRY: --------- OB HISTORY: : 3 Term: 2 GESTATIONAL AGE: LMP: 16w 0d Date: 10/09/20 CHRISTIANO: 07/16/21 Best: 16w 0d Det. By: LMP (10/09/20) CHRISTIANO: 07/16/21 CERVIX UTERUS ADNEXA: Cervix Length: 3.2 cm. No change with fundal pressure Right Ovary Not visualized Left Ovary Not visualized Cul De Sac No fluid seen IMPRESSION 2nd Trimester - Cervical Length - Summary Single intrauterine with a gestational age of 16w 0d based on LMP (10/09/20) Cervical length measures 3.2 cm. No change with fundal pressure. No dynamic change observed. Amniotic fluid volume is Too early to evaluate. Thank you for letting us participate in the care of this patient. If you are a health care provider and have any questions regarding this report, please contact the number above. For patients who have questions, please contact the health home health aide caregiver that requested your imaging first. Iona Ellison, Aluminum Sheet Cutter Electronically Signed Final Report 01/29/2021 10:31 am Johan Zapata MD [facility] OB ORDERABLES documented in this encounter Visit Diagnoses Diagnosis History of delivery, currently with history of pre-term labor documented in this encounter Care Teams Cisco Network Engineer Relationship Specialty Start Date End Date Tania Leos APRN [address] [place] [address] PCP - General Family Medicine 11/20/17 03/04/22 documented as of this encounter
--- OUTSIDE RECORDS SUMMARY | 2024-07-09 13:37 | XMS_ITS | Encounter Summary ---
Author Organization [facility] Address [facility] [place] [address] Care Team Providers Care Operations Support Professionals Name Role Phone Dafne Tania Tammy DOVE Primary Care Provider [phone] Encounter Details Date Type Department Care Team (Latest Contact Info) Description 02/28/2018 10:00 AM EDT - 02/28/2018 11:59 PM EDT Hospital Encounter [place] [address] Edvin Baldwin MD [facility] DR OBSTETRICS [place] [address] Choroid plexus cyst of fetus affecting care of mother, antepartum, single or unspecified fetus; Umbilical vein abnormality affecting , single or unspecified fetus; anomaly Discharge Disposition: Home Social History Tobacco Use [...] mouth once daily 0 11/21/2017 vitamin with xegxzkvp-Li-Bjhj-FA ( VITAMIN) TabletIndications:Super vision of high risk [...] Procedure Name Priority Date/Time Associated Diagnosis Comments ECHO COMPLETE Routine 02/28/2018 1 0:47 AM EDT Choroid plexus cyst of fetus affecting care of mother, antepartum, single or unspecified fetus Umbilical vein abnormality affecting , single or unspecified fetus anomaly documented in this encounter Results * ECHO COMPLETE (02/28/2018 10:47 AM EDT) Anatomical Region Laterality Modality Other 02/28/2018 Narrative 02/28/2018 12:03 PM EDT Procedure: ?Pediatric Echocardiogram Patient: ?BAILEY SOUZA L T ?(Age): 1995(22y) ? Med Rec#: ? [id number] ?Sex: ?F ? [place] Loc: ? [facility] [place]Ht / Wt: ??(cm)/ (kg) ? Pt. Loc: ?Echo Lab ? Study Date: ?? 02/28/2018 ?Pt. Type: Study Quality: ? Referring: Cameron Baldwin Referring: Edvin BALDWIN REBECCA Reading: Tarsha Tejada ([id number]) Bag Shop Worker: Pippa Franklin Diagnosis: *Abnormal ultrasonic finding on [...] Normal heart rate (153 bpm). Normal mechanical OK interval (116 ms). No arrhythmia detected. 6. [...] a patent foramen ovale (PFO). ?There is fgjmd-wg-hmgx shunting across the patent foramen ovale with [...] is a patent ductus arteriosus. ?There is uxnzw-fi-xxcr shunting across the patent ductus arteriosus with [...] 02/28/2018 12:02:28 Images reviewed and interpretation verified [facility] Cardiac Ultrasound Laboratory Procedure Note Tarsha Tejada MD - 02/28/2018 Procedure: Pediatric Echocardiogram Patient: BAILEY Saucedo (Age): 1995(22y) Med Rec#: [id number] Sex: F [place] Loc: [facility] [place] Ht / Wt: (cm)/ (kg) Pt. Loc: Echo Lab Study Date: 02/28/2018 Pt. Type: Study Quality: Referring: Cameron Baldwin Referring: Edvin BALDWIN REBECCA Reading: Tarsha Tejada ([id number]) Bag Shop Worker: Pippa Franklin Diagnosis: *Abnormal ultrasonic finding on [...] Normal heart rate (153 bpm). Normal mechanical OK interval (116 ms). No arrhythmia detected. 6. [...] a patent foramen ovale (PFO). There is imwqz-rw-vfcy shunting across the patent foramen ovale with [...] is a patent ductus arteriosus. There is xmthk-he-xqev shunting across the patent ductus arteriosus with [...] 02/28/2018 12:02:28 Images reviewed and interpretation verified [facility] Cardiac Ultrasound Laboratory E Melissa Baldwin MD ECHO ORDERABLES documented in this encounter Visit Diagnoses Diagnosis Choroid plexus cyst of fetus affecting care of mother, antepartum, single or unspecified fetus Umbilical vein abnormality affecting , single or unspecified fetus anomaly Multiple congenital anomalies, so described documented in this encounter Care Teams Operations Support Professionals Relationship Specialty Start Date End Date Tania Leos, DIRECTOR OF RADIO SERVICES [address] [facility] [place] [address] PCP - General Family Medicine 11/20/17 03/04/22 documented as of this encounter
--- OUTSIDE RECORDS SUMMARY | 2024-07-09 13:37 | XMS_ITS | Encounter Summary ---
Author Organization [facility] Address [facility] [place] [address] Care Team Providers Care Fish Roe Processor Name Role Phone Dafne Tania Tammy DOVE Primary Care Provider Encounter Details Date Type Department Care Team (Latest Contact Info) Description 03/10/2021 11:08 AM EDT - 03/10/2021 11:59 PM EDT Hospital En[place] [address] Larry Antunez MD [facility] OBSTETRICS [place] [address] History of delivery, currently ; Premature Discharge Disposition: Home Social History Tobacco Use [...] mouth once daily 0 11/21/2017 vitamin with iuvxanxk-Pd-Dmms-FA ( VITAMIN) TabletIndications:Super vision of high risk in second trimester,Medication exposure during first trimester of Daily 12/29/2015 documented as of this encounter Plan of Treatment Not on file documented as of this encounter Procedures Procedure Name Priority Date/Time Associated Diagnosis Comments US OB CERVICAL LENGTH TRANSVAGINAL Routine 03/10/2021 11:42 AM EDT History of delivery, currently Premature documented in this encounter Results * US OB Cervical Length Transvaginal (03/10/2021 11:42 AM EDT) Anatomical Region Laterality Modality Pelvis, Abdomen Ultrasound 03/10/2021 11:1 2 AM EDT Impressions 03/10/2021 12:03 PM EDT 2nd Trimester - Cervical Length - Summary Single intrauterine with a gestational age of 21w 5d based on LMP ??(10/09/20) Cervical length measures 2.6 cm. No change with fundal pressure. No dynamic change observed. Thank you for letting us participate in the care of this patient. If you are a health care provider and have any questions regarding this report, please contact the number above. For patients who have questions, please contact the health career development director that requested your imaging first. ?Iona Ellison, Ct Technologist Electronically Signed Final Report ?? 03/10/2021 12:02 pm Narrative 03/10/2021 12:03 PM EDT OBSTETRICS REPORT ?(Signed Final 03/10/2021 12:02 pm) PATIENT INFO: ID #: ? [id number] ?: ??[birth year] (25 yrs)(F) Name: ? HARLEY FRIEDMAN ? Visit Date: 03/10/2021 11:12 am PERFORMED BY: Performed By: ? Betty Mcdermott RDMS Attending: ?Terra WELLS, Iona Cho Referred By: ?LARRY ANTUNEZ Location: ? [place] SERVICE(S) PROVIDED: UOBTVCER - Transvaginal ??2nd Trimester - ?97101 Cervical Length - [id number] INDICATIONS: 21 weeks gestation of ?Z3A.21 cervix TECHNIQUE/SCAN QUALITY: Technique: ?? Transducer ID#: 21 VITAL SIGNS: Weight (lb): 195.0 Height: ?5'2 ? BMI: ? 35.66 EVALUATION: Num Of Fetuses: ? 1 Heart Rate(bpm): ??128 Presentation: ? Breech Placenta: ? Posterior P. Cord Insertion: ?Within Normal Limits --------- BIOMETRY: --------- OB HISTORY: Blood Type: ?? O+ : ?3 ? Ryan: ?? 2 Living: ? 2 GESTATIONAL AGE: LMP: ? 21w 5d ?Date: ??10/09/20 ? CHRISTIANO: ?? 07/16/21 Best: ?21w 5d ?? Det. By: ??LMP ??(10/09/20) ?CHRISTIANO: ?? 07/16/21 CERVIX UTERUS ADNEXA: Cervix Length: ?2.6 ??cm. No change with fundal pressure Right Ovary Not visualized Left Ovary Not visualized Cul De Sac No fluid seen Procedure Note Iona Ellison MD - 03/10/2021 OBSTETRICS REPORT (Signed Final 03/10/2021 12:02 pm) PATIENT INFO: ID #: [id number] : [birth year] (25 yrs)(F) Name: HARLEY FRIEDMAN Visit Date: 03/10/2021 11:12 am PERFORMED BY: Performed By: Betty Mcdermott RDMS Attending: Iona Ellison MD Referred By: LARRY ANTUNEZ Location: [place] SERVICE(S) PROVIDED: UOBTVCER - Transvaginal 2nd Trimester - 88268 Cervical Length - [id number] INDICATIONS: 21 weeks gestation of Z3A.21 cervix TECHNIQUE/SCAN QUALITY: Technique: Transducer ID#: 21 VITAL SIGNS: Weight (lb): 195.0 Height: 5'2 BMI: 35.66 EVALUATION: Num Of Fetuses: 1 Heart Rate(bpm): 128 Presentation: Breech Placenta: Posterior P. Cord Insertion: Within Normal Limits --------- BIOMETRY: --------- OB HISTORY: Blood Type: O+ : 3 Ryan: 2 Livin GESTATIONAL AGE: LMP: 21w 5d Date: 10/09/20 CHRISTIANO: 07/16/21 Best: 21w 5d Det. By: LMP (10/09/20) CHRISTIANO: 07/16/21 CERVIX UTERUS ADNEXA: Cervix Length: 2.6 cm. No change with fundal pressure Right Ovary Not visualized Left Ovary Not visualized Cul De Sac No fluid seen IMPRESSION 2nd Trimester - Cervical Length - Summary Single intrauterine with a gestational age of 21w 5d based on LMP (10/09/20) Cervical length measures 2.6 cm. No change with fundal pressure. No dynamic change observed. Thank you for letting us participate in the care of this patient. If you are a health care provider and have any questions regarding this report, please contact the number above. For patients who have questions, please contact the health career development director that requested your imaging first. Iona Ellison, Ct Technologist Electronically Signed Final Report 03/10/2021 12:02 pm [facility] documented in this encounter Visit Diagnoses Diagnosis History of delivery, currently with history of pre-term labor Premature Other infants, unspecified (weight) documented in this encounter Care Teams Fish Roe Processor Relationship Specialty Start Date End Date Tania Leos APRN [address] [place] [address] PCP - General Family Medicine 11/20/17 03/04/22 documented as of this encounter
--- OUTSIDE RECORDS SUMMARY | 2024-07-09 13:37 | XMS_ITS | Encounter Summary ---
Author Organization [facility] Address [facility] [place] [address] Care Team Providers Care Ceo Na Name Role Phone DarriusTania bustamante Tammy DOVE Primary Care Provider [phone] Reason for Visit * Reason Comments Routine Visit Encounter Details Date Type Department Care Team (Late st Contact Info) Description 01/29/2021 11:30 AM EDT Routine Obstetrics [place] [address] Iona Ellison MD [facility] DR OBSTETRICS [place] [address] GA: 16w0d Social History Tobacco Use Types Packs/Day Years [...] Sign Reading Time Taken Comments Blood Pressure 106/62 01/29/2021 10:57 AM EDT Pulse - - Temperature - - Respiratory Rate - - Oxygen Saturation - - Inhaled Oxygen Concentration - - Weight 87.6 kg (193 lb 1.6 oz) 01/29/2021 10:57 AM EDT Height - - Body Mass Index 34.21 04/30/2018 3:08 PM EST documented in this encounter Progress Notes * Iona Ellison MD - 01/29/2021 11:30 AM EDT Maternal Medicine follow up visit Patient Active Problem List Diagnosis Code ??? YORK (headache) R51.9 ??? ADHD (attention deficit hyperactivity disorder), combined type F90.2 ??? Major depressive disorder, recurrent episode, moderate (DEPRESSION) F33.1 ??? premature rupture of membranes (PPROM) with unknown onset of labor O42.919 ??? Contraception [id number] ??? PDA: patient was delivered at 26wks gestation Z87.798 ??? labor O60.00 ??? Premature cervical dilation in third trimester O34.33 ??? Intellectual disability F79 CHRISTIANO 07/16/21 at 16w0d week's gestation Chief complaint: follow up US Subjective: She was seen previously by Dr. Callahan who receommended surveillance cervical length USfor prior . She has been well without bleeding, loss of fluid or pain. Objective: Patient Vitals for the past 24 hrs: BP 01/29/21 1057 106/62 Appears well Cheerful Abdomen soft, nontender Ext no edema Ultrasound 2nd Trimester - Cervical Length - Summary Single intrauterine with a gestational age of 16w 0d based on LMP (10/09/20) Cervical length measures 3.2 cm. No change with fundal pressure. No dynamic change observed. Amniotic fluid volume is Too early to evaluate. Assessment: History of . The cervical length is normal not indicating a need for cerclage Plan: Follow up on 02/19 is already scheduled. Iona Ellison MD 01/29/2021 Cc: Mari Borrero CNM documented in this encounter Plan of Treatment Not on file documented as of this encounter Visit Diagnoses Diagnosis History of delivery, currently with history of pre-term labor documented in this encounter Care Teams Ceo Na Relationship Specialty Start Date End Date Tania Leos APRN [address] [place] [address] PCP - General Family Medicine 11/20/17 03/04/22 documented as of this encounter
--- OUTSIDE RECORDS SUMMARY | 2024-07-09 13:37 | XMS_ITS | Encounter Summary ---
Author Organization [facility] Address [facility] [place] [address] Care Team Providers Care Copying Machine Repairer Name Role Phone Dafne Tania Tammy DOVE Primary Care Provider [phone] Encounter Details Date Type Department Care Team (Latest Contact Info) Description 02/19/2021 10:06 AM EDT - 02/19/2021 11:59 PM EDT Hospital [place] [address] Johan Zapata MD [facility] [place] [address] History of delivery, currently Discharge Disposition: Home [...] mouth once daily 0 11/21/2017 vitamin with arjboxcy-Ak-Ktcr-FA ( VITAMIN) TabletIndications:Super vision of high risk in second trimester,Medication exposure during first trimester of Daily 12/29/2015 documented as of this encounter Plan of Treatment Not on file documented as of this encounter Procedures Procedure Name Priority Date/Time Associated Diagnosis Comments US OB DETAILED MORPHOLOGY Routine 02/19/2021 11:10 AM EDT History of delivery, currently documented in this encounter Results * US OB Detailed Morphology (02/19/2021 11:10 AM EDT) Anatomical Region Laterality Modality Pelvis, Abdomen Ultrasound 02/19/2021 11:0 7 AM EDT Impressions 02/19/2021 11:47 AM EDT 2nd Trimester - ??EIF- ??Summary Single intrauterine with a gestational age of 19w 0d based on LMP ??(10/09/20) Composite age based on the current ultrasound alone is 19w 1d. Current growth parameters are consistent with prior dating indicating normal growth. Amniotic fluid volume is Normal Genetic sonogram shows an echogenic intra cardiac focus. ??The remainder of the anatomy appeared normal. Transvaginal ultrasound done for cervical length. Thank you for letting us participate in the care of this patient. If you are a health care provider and have any questions regarding this report, please contact the number above. For patients who have questions, please contact the health rn acute care that requested your imaging first. ?Tuh Vigil, Staff Physician Electronically Signed Final Report ?? 02/19/2021 11:46 am Narrative 02/19/2021 11:47 AM EDT OBSTETRICS REPORT ?(Signed Final 02/19/2021 11:46 am) PATIENT INFO: ID #: ? [id number] ?: ??[birth year] (25 yrs)(F) Name: ? HARLEY Saucedo YOUNG ? Visit Date: 02/19/2021 11:07 am PERFORMED BY: Performed By: ? Bianca Steiner RDMS Attending: ?Musa WELLS, Thu Abdi Referred By: ?JOHAN ZAPATA Location: ? [place] SERVICE(S) PROVIDED: [facility] - Detailed Morphology - [id number] ? [id number] UOBTVCER - Transvaginal ??2nd Trimester - ?58661 Cervical Length - [id number] INDICATIONS: 19 weeks gestation of ?Z3A.19 Prior x 2. ??Hx/o PDA VITAL SIGNS: Weight (lb): 193.0 Height: ?5'2 ? BMI: ? 35.3 EVALUATION: Num Of Fetuses: ? 1 Heart Rate(bpm): ??137 Cardiac Activity: ? Observed, normal rhythm Presentation: ? Breech Placenta: ? Posterior P. Cord Insertion: ?Within Normal Limits Amniotic Fluid KARTIK FV: ?Normal --------- BIOMETRY: --------- BPD: ?43.6 ??mm ? G.Age: ?? 19w 1d OFD: ?56.8 ??mm HC: ?161.6 ??mm ? G.Age: ?? 19w 0d AC: ?134.0 ??mm ? G.Age: ?? 18w 6d FL: ? 30.0 ??mm ? G.Age: ?? 19w 2d HUM: ?27.3 ??mm ? G.Age: ?? 18w 5d CER: ?18.9 ??mm ? G.Age: ?? 18w 3d NFT: ? 3.3 ??mm NB: ?6.7 ??mm LV: ?6.1 ??mm CM: ?4.2 ??mm CI: ?76.8 ??% ? 70 - 86 FL/HC: ? 18.6 ??% ? 16.1 - 18.3 HC/AC: ? 1.21 ?1.09 - 1.39 FL/BPD: ?68.8 ??% FL/AC: ? 22.4 ??% ? Est. FW: ? 271 ??gm ?0 lb 10 oz OB HISTORY: Blood Type: ?? O+ : ?3 ? Ryan: ?? 2 Living: ? 2 GESTATIONAL AGE: LMP: ? 19w 0d ?Date: ??10/09/20 ? CHRISTIANO: ?? 07/16/21 U/S Today: ? 19w 1d ?CHRISTIANO: ?? 07/15/21 Best: ?19w 0d ?? Det. By: ??LMP ??(10/09/20) ?CHRISTIANO: ?? 07/16/21 TARGETED ANATOMY: Central Nervous System Calvarium/Cranial V.: ??Within Normal Limits Intracranial Nicole: ? Within Normal Limits Cavum: ? Within Normal Limits Parenchyma: ?Within Normal Limits Lateral Ventricles: ?Within Normal Limits Choroid Plexus: ?Within Normal Limits Cereb./Vermis: ? Within Normal Limits Cisterna Magna: ?Within Normal Limits Midline Falx: ?Within Normal Limits Spine Cervical: ?Visualized Thoracic: ?Visualized Lumbar: ?Visualized Sacral: ?Visualized Shape/Curvature: ? Visualized Head/Neck Face: ?Within Normal Limits Lips: ?Within Normal Limits Neck: ?Within Normal Limits Nuchal Fold: ? Within Normal Limits Nasal Bone: ?Present Profile: ? Visualized Orbits/Eyes: ? Visualized Mandible: ?Visualized Maxilla: ? Visualized Thorax Thoracic Contour: ?Within Normal Limits Lungs: ? Visualized 4 Chamber View: ?Echogenic intracardi Cardiac Activity: ?Normal Rhythm Rt Outflow Tract: ?Visualized Lt Outflow Tract: ?Visualized Aortic Arch: ? Visualized Ductal Arch: ? Visualized SVC: ? Visualized Cardiac Needham: ?Visualized Diaphragm: ? Visualized 3 Vessel View: ? Visualized IVC: ? Visualized Abdomen Ventral Wall: ?Visualized Cord Insertion: ?Visualized Situs: ? Normal Stomach: ? Visualized Liver: ? Visualized Lt Kidney: ? Visualized Rt Kidney: ? Visualized Bladder: ? Visualized Bowel: ? Visualized Extremities Lt Humerus: ?Within Nomal Limits Rt Humerus: ?Within Normal Limits Lt Forearm: ?Within Normal Limits Rt Forearm: ?Within Normal Limits Lt Hand: ? Within Normal Limits Rt Hand: ? Within Normal Limits Lt Femur: ?Within Normal Limits Rt Femur: ?Within Normal Limits Lt Lower Leg: ?Within Normal Limits Rt Lower Leg: ?Within Normal Limits Lt Foot: ? Visualized Rt Foot: ? Visualized Other Umbilical Cord: ?3 vessel cord Genitalia: ? Female CERVIX UTERUS ADNEXA: Cervix Length: ?3.1 ??cm. No change with fundal pressure Right Ovary Not visualized Left Ovary Size(cm) ? 2.9 ??x ?? 1.3 ?x ??1.2 ? Vol(ml): 2.4 Visualized Procedure Note Thu Vigil MD - 02/19/2021 OBSTETRICS REPORT (Signed Final 02/19/2021 11:46 am) PATIENT INFO: ID #: [id number] : [birth year] (25 yrs)(F) Name: HARLEY FRIEDMAN Visit Date: 02/19/2021 11:07 am PERFORMED BY: Performed By: Bianca Steiner RDMS Attending: Thu Vigil MD Referred By: JOHAN ZAPATA Location: [place] SERVICE(S) PROVIDED: [facility] - Detailed Morphology - [id number] UOBTVCER - Transvaginal 2nd Trimester - 88008 Cervical Length - [id number] INDICATIONS: 19 weeks gestation of Z3A.19 Prior x 2. Hx/o PDA VITAL SIGNS: Weight (lb): 193.0 Height: 5'2 BMI: 35.3 EVALUATION: Num Of Fetuses: 1 Heart Rate(bpm): 137 Cardiac Activity: Observed, normal rhythm Presentation: Breech Placenta: Posterior P. Cord Insertion: Within Normal Limits Amniotic Fluid KARTIK FV: Normal --------- BIOMETRY: --------- BPD: 43.6 mm G.Age: 19w 1d OFD: 56.8 mm HC: 161.6 mm G.Age: 19w 0d AC: 134.0 mm G.Age: 18w 6d FL: 30.0 mm G.Age: 19w 2d HUM: 27.3 mm G.Age: 18w 5d CER: 18.9 mm G.Age: 18w 3d NFT: 3.3 mm NB: 6.7 mm LV: 6.1 mm CM: 4.2 mm CI: 76.8 % 70 - 86 FL/HC: 18.6 % 16.1 - 18.3 HC/AC: 1.21 1.09 - 1.39 FL/BPD: 68.8 % FL/AC: 22.4 % 20 - 24 Est. FW: 271 gm 0 lb 10 oz OB HISTORY: Blood Type: O+ : 3 Ryan: 2 Livin GESTATIONAL AGE: LMP: 19w 0d Date: 10/09/20 CHRISTIANO: 07/16/21 U/S Today: 19w 1d CHRISTIANO: 07/15/21 Best: 19w 0d Det. By: LMP (10/09/20) CHRISTIANO: 07/16/21 TARGETED ANATOMY: Central Nervous System Calvarium/Cranial V.: Within Normal Limits Intracranial Nicole: Within Normal Limits Cavum: Within Normal Limits Parenchyma: Within Normal Limits Lateral Ventricles: Within Normal Limits Choroid Plexus: Within Normal Limits Cereb./Vermis: Within Normal Limits Cisterna Magna: Within Normal Limits Midline Falx: Within Normal Limits Spine Cervical: Visualized Thoracic: Visualized Lumbar: Visualized Sacral: Visualized Shape/Curvature: Visualized Head/Neck Face: Within Normal Limits Lips: Within Normal Limits Neck: Within Normal Limits Nuchal Fold: Within Normal Limits Nasal Bone: Present Profile: Visualized Orbits/Eyes: Visualized Mandible: Visualized Maxilla: Visualized Thorax Thoracic Contour: Within Normal Limits Lungs: Visualized 4 Chamber View: Echogenic intracardi Cardiac Activity: Normal Rhythm Rt Outflow Tract: Visualized Lt Outflow Tract: Visualized Aortic Arch: Visualized Ductal Arch: Visualized SVC: Visualized Cardiac Needham: Visualized Diaphragm: Visualized 3 Vessel View: Visualized IVC: Visualized Abdomen Ventral Wall: Visualized Cord Insertion: Visualized Situs: Normal Stomach: Visualized Liver: Visualized Lt Kidney: Visualized Rt Kidney: Visualized Bladder: Visualized Bowel: Visualized Extremities Lt Humerus: Within Nomal Limits Rt Humerus: Within Normal Limits Lt Forearm: Within Normal Limits Rt Forearm: Within Normal Limits Lt Hand: Within Normal Limits Rt Hand: Within Normal Limits Lt Femur: Within Normal Limits Rt Femur: Within Normal Limits Lt Lower Leg: Within Normal Limits Rt Lower Leg: Within Normal Limits Lt Foot: Visualized Rt Foot: Visualized Other Umbilical Cord: 3 vessel cord Genitalia: Female CERVIX UTERUS ADNEXA: Cervix Length: 3.1 cm. No change with fundal pressure Right Ovary Not visualized Left Ovary Size(cm) 2.9 x 1.3 x 1.2 Vol(ml): 2.4 Visualized IMPRESSION 2nd Trimester - EIF- Summary Single intrauterine with a gestational age of 19w 0d based on LMP (10/09/20) Composite age based on the current ultrasound alone is 19w 1d. Current growth parameters are consistent with prior dating indicating normal growth. Amniotic fluid volume is Normal Genetic sonogram shows an echogenic intra cardiac focus. The remainder of the anatomy appeared normal. Transvaginal ultrasound done for cervical length. Thank you for letting us participate in the care of this patient. If you are a health care provider and have any questions regarding this report, please contact the number above. For patients who have questions, please contact the health rn acute care that requested your imaging first. Thu Vigil, Staff Physician Electronically Signed Final Report 02/19/2021 11:46 am Johan Zapata MD IMG OB ORDERABLES documented in this encounter Visit Diagnoses Diagnosis History of delivery, currently with history of pre-term labor documented in this encounter Care Teams Copying Machine Repairer Relationship Specialty Start Date End Date Tania Leos APRN [address] [place] [address] PCP - General Family Medicine 11/20/17 03/04/22 documented as of this encounter
--- OUTSIDE RECORDS SUMMARY | 2024-07-09 13:37 | XMS_ITS | Encounter Summary ---
Author Organization [facility] [place] [address] Care Team Providers Care Burner Machine Operator Name Role Phone DarriusTania bustamante Tammy DOVE Primary Care Provider [phone] Reason for Visit * Reason Onset Date Comments Results 01/19/2018 Encounter Details Date Type Department Care Team (Late st Contact Info) Description 01/19/2018 Telephone Obstetrics [place] [address] [facility] [place] [address] Results Social History Tobacco Use Types Packs/Day Years Used Date Smoking Tobacco: Former Cigarettes Smokeless Tobacco: Never Alcohol Use Standard Drinks/Week Comments No 0 (1 standard drink = 0.6 oz pur e alcohol) Comments Yes Sex and Gender Information Value Date Recorded Sex Assigned at Not on file Gender Identity Not on file Sexual Orientation Not on file documented as of this encounter Miscellaneous Notes * Telephone Encounter - Soham Coulter [facility] - 01/19/2018 5:04 PM EDT Genetic Counseling Result Note I informed Aruna Friedman of the following results by phone today: [place] Test: Condition Result Probability Trisomy 21 Low Probability Less than 1/10,000 Trisomy 18 Low Probability Less than 1/10,000 Trisomy 13 Low Probability Less than 1/10,000 The laboratory report will be scanned into eD-H. A letter will be sent to the referring provider's office with a copy of the report. documented in this encounter Plan of Treatment Not on file documented as of this encounter Visit Diagnoses Not on filedocumented in this encounter Care Teams Burner Machine Operator Relationship Specialty Start Date End Date Tania Leos APRN [address] [place] [address] PCP - General Family Medicine 11/20/17 03/04/22 documented as of this encounter
--- OUTSIDE RECORDS SUMMARY | 2024-07-09 13:37 | XMS_ITS | Clinical Summary ---
Author Organization [facility] Address [facility] [place] [address] Care Team Providers Care Diagnostic Sales Specialist Name Role Phone Unknown Primary Care Provider Unavailabl e Allergies No known active allergies Medications Medication Sig Dispensed Refills Start Date End Date Status vitamin with dsdbjxqb-Ch-Dftf-F A ( VITAMIN) TabletIndications: Supervision of high risk in second trimester,Medicati on exposure during first trimester of Daily 12/29/2015 Active FLUoxetine (PROZAC) 20 mg CapsuleIndications :H/O delivery, currently take 1 capsule by mouth once daily 0 11/21/2017 Active acetaminophen (TYLENOL) 325 mg Tablet Take 2 tablets by mouth every 6 hours as needed for Pain. 30 tablet 05/08/2018 Active docusate sodium (COLACE) 50 mg Capsule Take 1 capsule by mouth 2 times daily as needed for Constipation. 10 capsule 05/08/2018 Active Additional Information Patient not taking.Reported on 02/19/2021 polyethylene glycol (MIRALAX) 17 gram Powder in Packet Take 17 g by mouth daily as needed. 14 each 05/08/2018 Active loratadine (Claritin) 10 mg Tablet TAKE 1 TABLET BY MOUTH EVERY DAY 11/06/2020 Active OneTouch Delica Plus Lancet 30 gauge Misc USE TO TEST BLOOD GLUCOSE FOUR TIMES DAILY 12/23/2020 Active OneTouch Ultra2 Meter Misc USE TO TEST BLOOD GLUCOSE FOUR TIMES DAILY 12/23/2020 Active OneTouch Ultra Blue Test Strip Strip USE TO TEST BLOOD GLUCOSE FOUR TIMES DAILY 12/23/2020 Active Alcohol Prep Pads Pads, Medicated USE 1 PAD TOPICALLY FOUR TIMES DAILY 12/23/2020 Active Ventolin HFA 90 mcg/actuation HFA Aerosol Inhaler INHALE 2 PUFFS BY MOUTH EVERY 4 HOURS NEEDED FOR SHORTNESS OF BREATH OR WHEEZING 08/20/2020 Active hydrOXYzine (Atarax) 25 mg Tablet TAKE 1 TABLET BY MOUTH TWICE DAILY NEEDED FOR ANXIETY 09/11/2020 Active NovoLIN N Flexpen Insulin Pen INJECT 4 UNITS UNDER THE SKIN EVERY NIGHT 01/15/2021 Active BD Ultra-Fine Mini Pen Needle 31 gauge x 3/16 Needle USE PEN NEEDLES DIRECTED AT BEDTIME 01/15/2021 Active Active Problems Problem Noted Date Diagnosed Date History of delivery, currently in second trimester 04/01/2021 Premature cervical dilation in third trimester 1 06/28/2017 Intellectual disability 2018 labor 04/25/2018 premature rupture of membranes (PPROM) with unknown onset of labor 07/19/2016 Contraception 07/19/2016 Overview (08/09/2016): Ashish Consent Form Signed Date: 07/19/2016 Ashish Consent Form Scanned no, in folder on BP Added to Shared List yes Questionnaire Completed yes LARC Device labeled in safe area? no LARC Device Type: Liletta Insertion Date 07/20/16 Was there Contamination? No PDA: patient was delivered at 24 5/7 wks gestati on 01/27/2016 Major depressive disorder, r ecurrent episode, moderate (DEPRESSION) 05/15/2014 [place] (headache) 02/13/2014 ADHD (attention deficit hype ractivity disorder), combined type 02/13/2014 Premature Overview (02/19/2021): Born 24 5/7 weeks by CS after PPROM/breech Immunizations Name Administration Dates Next Due Influenza Quadrivalent, Pres ervative Free 05/08/2018 Influenza Trivalent, Preserv ative Free 07/22/2016 Tdap (Adacel, Boostrix) 2018(Defer red: Other - received 04/06/18 at [facility]) Social History Tobacco Use Types Packs/Day Years Used Date Smoking Tobacco: Former Cigarettes Q uit: 07/20/2016 Smokeless Tobacco: Never Alcohol Use Standard Drinks/Week Comments No 0 (1 standard drink = 0.6 oz pur e alcohol) Sex and Gender Information Value Date Recorded Sex Assigned at Not on file Gender Identity Not on file Sexual Orientation Not on file Last Filed Vital Signs Vital Sign Reading Time Taken Comments Blood Pressure 102/66 04/01/2021 2:44 PM EDT Pulse 92 05/08/2018 9:00 AM EST Temperature 37.3 ??C (99.1 ??F) 05/08/2018 9:00 AM ES T Respiratory Rate 20 05/08/2018 9:00 AM EST Oxygen Saturation 97% 05/08/2018 9:00 AM EST Inhaled Oxygen Concentration - - Weight 91.3 kg (201 lb 4.8 oz) 04/01/2021 2:44 P M EDT Height 160 cm (5' 2.99) 04/30/2018 3:08 PM EST Body Mass Index 35.67 04/30/2018 3:08 PM EST Plan of Treatment Health Maintenance Due Date Last Done Comments HIV screen 2014 Hepatitis C Screening 2014 Hepatitis B vaccine (0-59 yrs) (1) 2015 Tetanus/Diphtheria/Pertussis Vaccines (1 - Tdap) 2015 PAP Smear 2017 Covid-19 Vaccine (1 - season) 2024 Influenza (Flu) vaccine (1 o f 1 - Influenza standard series) 02/11/2024 05/08/2018, 07/22/2016 Advance Directives * Full Code (Latest Code Status on File) Date Activated Date Inactivated Comments 04/25/2018 6:30 PM 05/08/2018 4:17 PM Question Answer Comments Does patient have capacity to make decision: Yes * Full Code Date Activated Date Inactivated Comments 04/25/2018 6:08 PM 04/25/2018 6:30 PM Question Answer Comments Does patient have capacity to make decision: Yes * Full Code Date Activated Date Inactivated Comments 07/19/2016 12:58 AM 07/22/2016 3:11 PM Question Answer Comments Does patient have capacity to make decision: Yes Care Teams Diagnostic Sales Specialist Relationship Specialty Start Date End Date Unknown None PCP - General 03/05/22
--- OUTSIDE RECORDS SUMMARY | 2024-07-09 13:37 | XMS_ITS | Encounter Summary ---
Author Organization [facility] Address [facility] [place] [address] Care Team Providers Care Commissary Manager Name Role Phone Darriusdianna Tania Tammy DOVE Primary Care Provider [phone] Encounter Details Date Type Department Care Team (Late st Contact Info) Description 02/19/2021 11:45 AM EDT Routine Obstetrics [place] [address] Thu Antunez MD [facility] [address] OBSTETRICS [place] [address] GA: 19w0d Social History Tobacco Use Types Packs/Day Years [...] Sign Reading Time Taken Comments Blood Pressure 118/64 02/19/2021 11:20 AM EDT Pulse - - Temperature - - Respiratory Rate - - Oxygen Saturation - - Inhaled Oxygen Concentration - - Weight 88.8 kg (195 lb 11.2 oz) 021 11:20 AM EDT Height - - Body Mass Index 34.68 04/30/2018 3:08 PM EST documented in this encounter Progress Notes * Thu Antunez MD - 02/19/2021 11:45 AM EDT Gestational age: 19w0d, returns for follow-up ultrasound and limited MFM consult. FM felt, no LOF, no bleeding or brayden. US today unremarkable morphology except echogenic intracardiac focus, normal fluid, normal placenta. Cervix length 3.1cm. Had [place] screen with low riskfor trisomy 21 per her report. Given she was delivered at 24 weeks and she has had 2 34 week deliveries, I recommend a follow up cervix length US in 2-3 weeks. She declined Tamms. She has local OB follow up care. Patient Active Problem List Diagnosis Date Noted [...] No resolved problems to display. Ultrasound Date: 02/19/2021 Growth appropriate for gestational age Amniotic fluid volume normal Presentation breech Placenta posterior anatomy unremarkable except isolated intracardiac focus Physical Exam BP 118/64 Wt 88.8 kg (195 lb 11.2 oz) LMP 10/09/2020 BMI 34.68 kg/m?? General: alert, well appearing, in no apparent distress HEENT: normocephalic, atraumatic Abdomen: Gravid, soft, nontender Neurologic:alert, oriented, normal speech, no focal findings or movement disorder noted Psychiatric: Affect is Appropriate. Assessment and Recommendations: 25 y.o. year old female at 19w0d weeks gestation. We reviewed the ultrasound findings and limitation of ultrasound in detecting a anomalies andaneuploidy. The anatomy is unremarkable except for intracardiac focus. The placenta is posterior. The fluid is normal. The cervix length measures 3.1cm. We reviewed the association between echogenic intracardiac focus and trisomy 21. She has had a NIPT which was low risk for trisomy 21 which is reassuring. I recommend a follow up cervix length in 2-3 weeks given her history of 2 prior deliveries and her personal history of being born at 24 5/7 weeks after PPROM/PTL. She previouslydiscussed Desire and made a decision not to start the medication. I appreciate the opportunity to be involved in this patients care, and am available if further questions should arise. THU ANTUNEZ MD 02/19/2021 Cc: No ref. provider found, with copy of ultrasound report documented in [...] who have questions, please contact the health adult care manager that requested your imaging first. ?Iona Ellison, [employer] Technician Electronically Signed Final Report ?? 03/10/2021 12:02 pm Narrative 03/10/2021 12:03 PM EDT OBSTETRICS REPORT ?(Signed Final 03/10/2021 12:02 pm) PATIENT INFO: ID #: ? [id number] ?: ??[birth year] (25 yrs)(F) Name: ? HARLEY FRIEDMAN ? Visit Date: 03/10/2021 11:12 am PERFORMED BY: Performed By: ? Betty Mcdermott RDMS Attending: ?Terra WELLS, Iona Cho Referred By: ?THU ANTUNEZ Location: ? [place] SERVICE(S) PROVIDED: UOBTVCER - Transvaginal ??2nd Trimester - ?66332 Cervical Length - [id number] INDICATIONS: 21 weeks gestation of ?Z3A.21 cervix [...] 03/10/2021 12:02 pm) PATIENT INFO: ID #: [id number] : [birth year] (25 yrs)(F) Name: HARLEY FRIEDMAN Visit Date: 03/10/2021 11:12 am PERFORMED BY: Performed By: Betty Mcdermott RDMS Attending: Iona Ellison MD Referred By: THU ANTUNEZ Location: [place] SERVICE(S) PROVIDED: UOBTVCER - Transvaginal 2nd Trimester - 44579 Cervical Length - [id number] INDICATIONS: 21 weeks gestation of Z3A.21 cervix [...] who have questions, please contact the health adult care manager that requested your imaging first. Iona Ellison, [employer]gl[employer] Technician Electronically Signed Final Report 03/10/2021 12:02 pm Thu Antunez MD IMG OB ORDERABL ES documented in this encounter Visit Diagnoses Diagnosis History of delivery, currently with history of pre-term labor Premature Other infants, unspecified (weight) History of delivery, currently with history of pre-term labor Premature Other infants, unspecified (weight) documented in this encounter Care Teams Commissary Manager Relationship Specialty Start Date End Date Tania Leos APRN [address] [place] [address] PCP - General Family Medicine 11/20/17 03/04/22 documented as of this encounter
--- OUTSIDE RECORDS SUMMARY | 2024-07-09 13:37 | XMS_ITS | Encounter Summary ---
Author Organization [facility] Address [facility] [place] [address] Care Team Providers Care Set Up Mechanic Coil Winding Machines Name Role Phone Tania Leos APRN Primary Care Provider [phone] Reason for Visit * Reason Comments Establish Care * Consultation (Routine) - Closed Specialty Diagnoses / Procedures Referred By Des leblanc Referred To Contact Obstetrics and Gynecology Diagnoses Supervision of other high risk pregnancies, first trimester HX DELIVERY X2, DEPRESSION, HX OF SURGICAL REPAIR OF PATENT DUCTUS Mari Borrero, [facility] [address] [place] [address] [place] [address] [facility] [place] [address] [place] [address] Referral ID Status Reason Start Date Expiration Date V isits Requested Visits Authorized [id number] Closed Consult, Test & Treat Connection [facility] PCP Updated and/or Approved 12/23/2020 12/23/2021 1 1 Encounter Details Date Type Department Care Team (Late st Contact Info) Description 01/12/2021 11:00 AM EDT Office Visit Obstetric[place] [address] Johan Zapata MD [facility] [place] [address] History of delivery, currently (Primary Dx) Social History Tobacco Use Types Packs/Day Years [...] Sign Reading Time Taken Comments Blood Pressure 104/68 01/12/2021 10:57 AM EDT Pulse - - Temperature - - Respiratory Rate - - Oxygen Saturation - - Inhaled Oxygen Concentration - - Weight 89.4 kg (197 lb 1.6 oz) 01/12/2021 10:57 AM EDT Height - - Body Mass Index 34.92 04/30/2018 3:08 PM EST documented in this encounter Progress Notes * Johan Zapata MD - 01/12/2021 11:00 AM EDT Asked by Mari Borrero CNM, to see this 25 yo at 13w4d with hx/o prior deliveryx 2 and 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 Dating: LMP = 10/09/20 - EDC = 07/16/2021. 13w4d today. Best dates. C/w US 12/04 = 8w2d - EDC = 07/14/2021 Past [place]06/[place]w4d [place] [facility] [place] [facility] after found to be 6cm/100/0 - 07/20/2016: 34w2d - PPROM then IOL Past cardiac history: Surgically closed PDA. A/P: Hx/o late delivery x 2 and congenital heart disease. 1) Hx/o delivery: I recommend a cervical length US at 16 weeks and another cervical length ultrasound at the time of her detailed morphology US at 18-20 weeks. If the cervical length is <2.5cm, then a cerclage would be indicated. I have taken the liberty of scheduling these ultrasound evaluations. We spoke about the mixed data regarding progesterone supplementation to mitigate the risk of recurrent delivery. Given that her prior deliveries were after 34 weeks, she declines this therapyat this time. 2) Surgically corrected PDA - no special considerations. Routine care is appropriate. MD Emi 20 minutes of this 30 minute consultation was spent directly counseling the patient. documented in this encounter Plan of Treatment [...] who have questions, please contact the health hemodialysis patient care specialist that requested your imaging first. ?Thu Vigil, Staff Physician Electronically Signed Final Report ?? 02/19/2021 11:46 am Narrative 02/19/2021 11:47 AM EDT OBSTETRICS REPORT ?(Signed Final 02/19/2021 11:46 am) PATIENT INFO: ID #: ? [id number] ?: ??[birth year] (25 yrs)(F) Name: ? HARLEY Jeff T YOUNG ? Visit Date: 02/19/2021 11:07 am PERFORMED BY: Performed By: ? Bianca Steiner RDMS Attending: ?Musa WELLS, Thu Abdi Referred By: ?JOHAN ZAPATA Location: ? [place] SERVICE(S) PROVIDED: [facility] - Detailed Morphology - [id number] ? [id number] UOBTVCER - Transvaginal ??2nd Trimester - ?13529 Cervical Length - [id number] INDICATIONS: 19 weeks gestation of ?Z3A.19 Prior [...] ?68.8 ??% FL/AC: ? 22.4 ??% ? 20 - 24 Est. FW: ? 271 ??gm ?0 lb [...] Arch: ? Visualized SVC: ? Visualized Cardiac [place]: ?Visualized Diaphragm: ? Visualized 3 Vessel View: [...] 02/19/2021 11:46 am) PATIENT INFO: ID #: [id number] : [birth year] (25 yrs)(F) Name: HARLEY FRIEDMAN Visit Date: 02/19/2021 11:07 am PERFORMED BY: Performed By: Bianca Steiner RDMS Attending: Thu Vigil MD Referred By: JOHAN ZAPATA Location: [place] SERVICE(S) PROVIDED: [facility] - Detailed Morphology - [id number] UOBTVCER - Transvaginal 2nd Trimester - 81133 Cervical Length - [id number] INDICATIONS: 19 weeks gestation of Z3A.19 Prior [...] Visualized Ductal Arch: Visualized SVC: Visualized Cardiac [place]: Visualized Diaphragm: Visualized 3 Vessel View: Visualized [...] who have questions, please contact the health hemodialysis patient care specialist that requested your imaging first. Thu Vigil, Staff Physician Electronically Signed Final Report 02/19/2021 11:46 am Johan Zapata MD IMG US OB ORDERABLES * US OB Cervical Length Transvaginal (01/29/2021 [...] who have questions, please contact the health hemodialysis patient care specialist that requested your imaging first. ?Iona Ellison, Dental Scheduler Electronically Signed Final Report ?? 01/29/2021 10:31 am Narrative 01/29/2021 10:31 AM EDT OBSTETRICS REPORT ?(Signed Final 01/29/2021 10:31 am) PATIENT INFO: ID #: ? [id number] ?: ??[birth year] (25 yrs)(F) Name: ? HARLEY FRIEDMAN ? Visit Date: 01/29/2021 09:57 am PERFORMED BY: Performed By: ? Archana Hendricks RDMS Attending: ?Terra WELLS, Iona Cho Referred By: ?JOHAN ZAPATA Location: ? [place] SERVICE(S) PROVIDED: [facility]OBTVCER - Transvaginal ??2nd Trimester - ?37252 Cervical Length - [id number] INDICATIONS: 16 weeks gestation of ?Z3A.16 History [...] 01/29/2021 10:31 am) PATIENT INFO: ID #: [id number] : [birth year] (25 yrs)(F) Name: HARLEY FRIEDMAN Visit Date: 01/29/2021 09:57 am PERFORMED BY: Performed By: Archana Hendricks RDMS Attending: Iona Ellison MD Referred By: JOHAN ZAPATA Location: [place] SERVICE(S) PROVIDED: [facility]OBTVCER - Transvaginal 2nd Trimester - 63951 Cervical Length - [id number] INDICATIONS: 16 weeks gestation of Z3A.16 History [...] who have questions, please contact the health hemodialysis patient care specialist that requested your imaging first. Iona Ellison, Dental Scheduler Electronically Signed Final Report 01/29/2021 10:31 am Johan Zapata MD IMG OB ORDERABLES documented in this encounter Visit Diagnoses Diagnosis History of delivery, currently - Primary with history of pre-term labor History of delivery, currently with history of pre-term labor History of delivery, currently with history of pre-term labor documented in this encounter Care Teams Set Up Mechanic Coil Winding Machines Relationship Specialty Start Date End Date Tania Leos APRN [address] [place] [address] PCP - General Family Medicine 11/20/17 03/04/22 documented as of this encounter
--- OUTSIDE RECORDS SUMMARY | 2024-07-09 13:37 | XMS_ITS | Encounter Summary ---
Author Organization [facility] Address [facility] [place] [address] Care Team Providers Care Drawing Operator Name Role Phone DarriusTania bustamante Tammy DOVE Primary Care Provider [phone] Reason for Visit * Reason Comments Routine Visit Encounter Details Date Type Department Care Team (Late st Contact Info) Description 04/01/2021 3:00 PM EDT Routine Obstetrics [place] [address] Iona Ellison MD [facility] DR OBSTETRICS [place] [address] GA: 24w6d Social History Tobacco Use Types Packs/Day Years [...] Pressure 102/66 04/01/2021 2:44 PM EDT Pulse - - Temperature - - Respiratory Rate - - Oxygen Saturation - - Inhaled Oxygen Concentration - - Weight 91.3 kg (201 lb 4.8 oz) 04/01/2021 2:44 P M EDT Height - - Body Mass Index 35.67 04/30/2018 3:08 PM EST documented in this encounter Progress Notes * Iona Ellison MD - 04/01/2021 3:00 PM EDT Maternal Medicine follow up visit CHRISTIANO 07/16/21 at 24w6d week's gestation Chief complaint: prior Subjective: Is being followed for prior . Cervical length on 03/18 was 2.7 cm. She denies bleeding, leaking of fluid, pain or regular contractions. She notes good movement. Is now being treated for GDMA2 and uses a continuous monitor. Objective: Patient Vitals for the past 24 hrs: BP 04/01/21 1444 102/66 Appears well Cheerful Abdomen soft, nontender Ext no edema Pelvic: Normal appearing cervix VE: closed/anterior/medium/ 1-2 cm length Assessment: 24 6/7 weeks. Her cervical exam is reassuring, but she remains at risk for recurrent . GDMA2 Plan: Continue care with her local obstetricians We are happy to see her again if assistance is needed with her diabetes. Iona Ellison MD 04/01/2021 Cc: Mari Borrero CNM, documented in this encounter Plan of Treatment Not on file documented as of this encounter Visit Diagnoses Diagnosis History of delivery, currently in second trimester GDM, class A2 Abnormal maternal glucose tolerance, complicating , childbirth, or the puerperium, unspecified as to episode of care documented in this encounter Care Teams Drawing Operator Relationship Specialty Start Date End Date Tania Leos APRN [address] [place] [address] [address] [facility] [address] [place] [address] PCP - General Family Medicine 11/20/17 03/04/22 documented as of this encounter
--- OUTSIDE RECORDS SUMMARY | 2024-07-09 13:37 | XMS_ITS | Encounter Summary ---
Author Organization [facility] Address [facility] [place] [address] Care Team Providers Care Store Operations Manager Name Role Phone Darriusdianna Tania Tammy DOVE Primary Care Provider [phone] Reason for Visit * Reason Comments Laboring Rupture of Membranes * Auth/Cert Specialty Diagnoses / Procedures Referred By Des leblanc Referred To Contact Diagnoses labor IUP @33 Procedures LABOR Referral ID Status Reason Start Date Expiration Date Visits Re quested Visits Authorized [id number] 1 1 Encounter Details Date Type Department Care Team (Latest Contact Info) Description 04/25/2018 4:21 PM EST - 05/08/2018 11:22 AM [facility] [place] [address] Edvin Baldwin MD [facility] [address] [facility] [place] [address] Discharge Disposition: Home Social History Tobacco Use [...] Sign Reading Time Taken Comments Blood Pressure 134/78 05/08/2018 9:00 AM EST Pulse 92 05/08/2018 9:00 AM EST Temperature 37.3 ??C (99.1 ??F) 05/08/2018 9:00 AM ES T Respiratory Rate 20 05/08/2018 9:00 AM EST Oxygen Saturation 97% 05/08/2018 9:00 AM EST Inhaled Oxygen Concentration - - Weight 79.8 kg (175 lb 14.4 oz) 04/30/2018 3:08 PM EST Height 160 cm (5' 2.99) 04/30/2018 3:08 PM EST Body Mass Index 31.17 04/30/2018 3:08 PM EST documented in this encounter Discharge Summaries * Crystal Pereira MD - 05/08/2018 10:26 AM EST Discharge Summary Patient Name: Harley Friedman Patient Age: 23 y.o. Language: Malian Race: White Ethnicity: Not nor Admit date: 04/25/2018 Discharge date and time: 05/08/2018 Attending Physician: Edvin Baldwin MD Discharge Physician: Yvette Frias MD Care Provider: [facility] Referring Hospital: [facility] Follow-up Recommendations for Providers: -2w depression screen - 6w follow-up visit Inpatient Provider Contact Information: [facility] [employer] ATTENDANT Department, Discharge Diagnoses (Hospital Problems) and Secondary Diagnoses (Chronic Problems) Active Hospital Problems Diagnosis ??? Premature cervical dilation in third trimester ??? Intellectual disability ??? labor ??? Major depressive disorder, recurrent episode, moderate (DEPRESSION) ??? ADHD (attention deficit hyperactivity disorder), combined type Resolved Hospital Problems No resolved problems to display. Active Non-Hospital Problems Diagnosis ??? premature rupture of membranes (PPROM) with unknown onset of labor ??? Contraception ??? PDA: patient was delivered at 26wks gestation ??? YORK (headache) Operations/Major Procedures: Spontaneous vaginal delivery on 05/06 Indication for Admission: Advanced cervical dilation Admission History (per admit note cut and paste) Referring Hospital: [facility] Referring Provider: So Webster MD Initial Care Provider (if early referral or co-managed by [facility]): [facility] ?? Chief Complaint: Harley Friedman was admitted today secondary to labor. ?? Harley Friedman is a 22 y.o. at 33w0d weeks gestation. She presented to her routine appointment and was found to be 6/100/0. She was found to be brayden about every 10 minutes. Multiple exams documented and unclear about status of ROM - clear fluid and intact membranes both documented. Her cervical exam was stable over hours so she was transported to [facility] for further management. Betamethasone administered and MgSO4 bolus given. ?? On presentation to [facility], she complains of painful kicks but otherwise is without complaint. ?? Her has been complicated by the following: -- Hx at 34w2d with labor, declined Colette -- CPCs and persistent R umbilical vein seen in this -- s/p low risk [place] -- Hx PDA repaired in childhood; echo in this WNL -- Depression (On Prozac), ADHD, cognitive delay Hospital Course Including Delivery and Events On admission, the patient was found to be 6/50/03, mid-position and soft with intact membranes. Fetus confirmed to be cephalic on bedside US. She received a full course of betamethasone for lung maturity, complete 11/15. GBS obtained and found to be negative (11/). She had a small amount of vaginal bleeding with concern for small placental abruption; however she had no further episodes of bleeding during this admission. Contractions resolved after HD#1 and she remained stable for the duration of her inpatient stay. Growth scan performed on 04/26/18 showing cephalic presentation, anterior placenta, normal fluid and appropriate EFW 1834g (37%tile). A prominent right umbilical vein was again visualized. On HD#12 she PPROM'ed for clear fluid, and progressed in labor. She was found to be complete at 1438 with the presenting part at +3 station. She pushed for three minutes and spontaneously delivered at 1441 hrs. The infant's head was delivered in a controlled fashion in the left occiput anterior position. There was no nuchal cord. A viable 2150g male infant with Apgars of 6 and 8 at 1 and 5 minutes was taken to N for further evaluation. The perineum was intact, with no visible lacerations, and estimated blood loss was 300cc. Her course was uneventful. She was discharged home on PPD#2 with pain controlled with oral pain medications, tolerating a regular diet, ambulating and voiding without difficulty, her fundal exam was as expected and her lochia was within normal limits.She had a Nexplanon placed before discharged, and was awaiting confirmation by [facility] that she would not have custody of this infant. She will be followed up in the clinic in 6 weeks, with a depression screen at 2 weeks. She was uninterested in setting up visits with a counselor or therapists when she was offered. Delivery Information Information for the patient's : Devan Friedman [[id number]] INFORMATION Devan Friedman 05/06/2018 2:41 PM by Vaginal, Spontaneous Delivery Sex: male Gestational Age: 34w4d [place] Measurements: Weight: 4 lb 11.8 oz (2150 g) APGARS One Minute Five Minutes Ten Minutes Totals: 6 8 EBL: 300 Vital signs at Discharge: BP: 134/78, Heart Rate: 92, Temp: 37.3 ??C (99.1 ??F), Resp: 20, BMI (Calculated): 31.16 Height: 160 cm (5' 2.99) (04/30/18 1508) Weight: 79.8 kg (175 lb 14.4 oz) (04/30/18 1508) Functional and Cognitive status: inact Important Studies and Lab Data: Labs: Last wbc, hgb, hct plt No results for input(s): WBC, HGB, HCT in the last 72 hours. Invalid input(s): PLT No results found for this or any previous visit (from the past 72 hour(s)). Studies: none Pending Studies and Lab Data: Placental pathology Discharge Conditions/Prognosis: good Discharge to: Home Contraceptive Plans: Nexplanon Allergies at Discharge: No Known Allergies Immunizations Given this Hospitalization: Immunization History Administered Date(s) Administered ??? Influenza PF, Split 07/22/2016 Discharge Medications: Your Medications New Medications Dose Details docusate sodium 50 mg Cap Commonly known as: COLACE Take 1 capsule by mouth 2 times daily as needed for Constipation. 50 mg Quantity: 10 capsule Refills: 0 polyethylene glycol 17 gram Pwpk Commonly known as: MIRALAX Take 17 g by mouth daily as needed. 17 g Quantity: 14 each Refills: 0 Continued medications with new dosing Dose Details acetaminophen 325 mg Tab Commonly known as: TYLENOL Take 2 tablets by mouth every 6 hours as needed for Pain. What changed: when to take this 650 mg Quantity: 30 tablet Refills: 0 ibuprofen 200 mg Tab Commonly known as: ADVIL;MOTRIN Take 3 tablets by mouth every 6 hours as needed for Pain. What changed: medication strength 600 mg Quantity: 30 tablet Refills: 0 Continued medications, unchanged Dose Details FLUoxetine 20 mg Cap Commonly known as: PROzac take 1 capsule by mouth once daily Refills: 0 VITAMIN Tab Daily Generic drug: vitamin with epscrpsn-Rc-Egvb-FA Refills: 0 Smoking Status at Discharge: Social History Tobacco Use Smoking Status Former Smoker ??? Packs/day: 0.25 ??? Types: Cigarettes ??? Last attempt to quit: 07/20/2016 ??? Years since quittin.8 Smokeless Tobacco Never Used Instructions Given to Patient at Discharge: Patient Instructions Patient Instructions Follow-up: Six weeks care provider. If you were seen at [facility] you will be contacted to set up an appointment Activity: Nothing in vagina until bleeding stops Do not lift more than 15 pounds No driving for two weeks if you are taking narcotic medication. Please call your OB provider for the following: Fever more than 100.5 degrees Heavy bleeding that saturates a pad an hour Increased abdominal pain, nausea , shaking chills Increased pain in the area of stitches outside your vagina. Hot, hard, tender areas on the breast and feeling generally unwell. Depression Contact Numbers: If you see an financial institution manager call: [phone] 9 am - 5 pm, after 5 pm If you see a manager animal call: [phone] all hours If you see a family practitioner call: [phone] all hours If you were transferred to our institution for delivery and cannot reach your local OB provider, call the financial institution manager numbers. Pain Control: Alternate 625 mg tylenol and 600 mg ibuprofen every 3 hours for pain control. General Instructions None Discharge References/Attachments None documented in this encounter Discharge Instructions * Discharge Instructions* Ingris Saleem RN - 05/08/2018 11:04 AM EST Images from the original note were not included. Nurse Inpatient Note - Vaginal Delivery Follow-ups: 2 week visit 6 week visit ? will be scheduled with your primary OB provider Maternal Discharge Instructions Rest: Although it may seem impossible to get enough rest, simple planning will help. Plan to rest, and/or sleep when your baby does. Limiting visitors also helps. Other family members can help by doing housework, caring for other children and/or helping limit visitors. Activity: Exercise can be gradually increased following your delivery, depending on the doctor???s recommendation. It is recommended that you do not swim until the vaginal bleeding stops or perform any heavy lifting for six weeks. ???Aim to stay active for 20-30 minutes a day. When you first start exercising after childbirth, try simple exercises that help strengthen major muscle groups, including abdominal and backmuscles. Gradually add moderate- intensity exercise. Remember, even 10 minutes of exercise benefits your body. If you exercised vigorously before or you are a night order selector, you can work up to vigorous-intensity activity. Stop exercising if you feel pain.?? https://www.[facility]og.org/Patients/FAQs/Kpobnzey-Wsttz-Cmgnqtdsn?IsMobileSet=false#ho w Nutrition: Your diet following the of your baby is as important as it was before the baby wasborn. Drinking a minimum of 6-8 glasses of water a day will help keep you hydrated. Continue takingyour vitamins until you are no longer . Do not attempt to lose weight during the first six weeks. Sweating. Hormonal changes following delivery frequently cause night sweats which are normal over the next 6 weeks. Sleeping on towels and using a fan may make you more comfortable. Lochia: (Flow) Your flow should be no heavier than a normal period. It will be bright red and then transition to pink, brown, yellow, and finally colorless. This may last a few weeks. If your vaginalbleeding becomes bright red again, decrease your activity. We recommend pelvic rest until your bleeding and spotting stops and your episiotomy or vaginal tearhas healed. This may take up to six weeks. Pelvic rest includes activities such as douching, use oftampons/menstrual cups or sexual intercourse. Perineum: For about a week continue to rinse yourself with warm water when you use the toilet. A sitz bath with Epsom salt taken 2 times a day and use of witch hermelindo may help relieve soreness. Kegel exercise, done regularly throughout the day, will help tighten the perineal muscles and speed recovery. If you received any stitches, these will dissolve on their own and do not need to be removed. If you had a 3rd degree or 4th degree vaginal laceration continue taking stool softeners as recommended by the doctor. Urinary leakage which continues and/or loss of bowel control should be mentioned to your care provider team. Breast Care for Formula feeding mothers: Wear a well-fitting bra to support your breasts. Ice packsto your breasts (10 minutes at a time) as well as alternating Tylenol and Ibuprofen may be used to relieve discomfort from engorgement. Avoid stimulating your breasts: Do not let warm water from the shower fall directly on your breast;do not express any colostrum; avoid holding your baby near your breasts until your milk begins to decrease and engorgement is relieved. Breast Care for mothers: Practice careful positioning and frequent feeding as demonstrated in the hospital. The printed information in your packet covers this in detail. For More Information: https://www.acog.org/Patients or refer to [employer]COG???s Your and Childbirth: Month to Month book which you may have received from the OB Clinic. Call your doctor or manager animal for: ??? Seizure (call 911) ??? Headache which isn???t relieved with Tylenol ??? Headache with visual changes ??? Pain in your chest ??? Shortness of breath ??? Pain in upper right abdomen ??? Fever more than 100.4 ??? Breast with hot, hard, tender areas on the breast plus flu-like symptom ??? Increased abdominal pain, nausea, shaking chills ??? Increased redness or soreness over your incision/ incision isn???t healing ??? Increased pain in the area of stitches outside your vagina ??? Heavy bleeding that saturates a pad an hour ??? Clots larger than an egg ??? Red or swollen leg which is painful or warm to the touch ??? depression occurs in a large percentage of women. We encourage you to contact your provider or a member of the nursing staff if you are feeling so overwhelmed that you are unable to care for yourself or your baby. Keep your follow up appointment. You may call the [facility] at any time for guidance or for answers to questions that come up prior to you follow up appointment. Your [facility] Provider can be reached during office hours at ??? Midwives ??? Obstetricians ??? Services AFTER OFFICE HOURS for the financial institution manager or manager animal superintendent production * Patient Instructions* Crystal Pereira MD - 05/08/2018 10:22 AM EST Patient Instructions Follow-up: Six weeks care provider. If you were seen at [facility] you will be contacted to set up an appointment Activity: Nothing in vagina until bleeding stops Do not lift more than 15 pounds No driving for two weeks if you are taking narcotic medication. Please call your OB provider for the following: Fever more than 100.5 degrees Heavy bleeding that saturates a pad an hour Increased abdominal pain, nausea , shaking chills Increased pain in the area of stitches outside your vagina. Hot, hard, tender areas on the breast and feeling generally unwell. Depression Contact Numbers: If you see an financial institution manager call: [phone] 9 am - 5 pm, after 5 pm If you see a manager animal call: [phone] all hours If you see a family practitioner call: [phone] all hours If you were transferred to our institution for delivery and cannot reach your local OB provider, call the financial institution manager numbers. Pain Control: Alternate 625 mg tylenol and 600 mg ibuprofen every 3 hours for pain control. documented in this encounter Medications at Time of Discharge Medication Sig Dispensed Refills Start Date End Date acetaminophen (TYLENOL) 325 mg Tablet Take 2 [...] mouth once daily 0 11/21/2017 vitamin with wxpcenrq-Bo-Murg-FA ( VITAMIN) TabletIndications:Super vision of high risk in second trimester,Medication exposure during first trimester of Daily 12/29/2015 ibuprofen (ADVIL;MOTRIN) 200 mg Tablet Take 3 tablets by mouth every 6 hours as needed for Pain. 30 tablet 05/08/2018 02/19/2021 documented as of this encounter Progress Notes * Yvette Frias MD - 05/08/2018 10:17 AM EST Procedure Note 05/08/2018 Preoperative diagnosis: Desires alf contraception Postoperative diagnosis: Same HPI: Harley Friedman is a 23 y.o. with a PMH significant for developmental delay and depression who desires extermination supervisor contraception. She delivered a viable male infant vaginally on 05/06/2018. The risks and benefits of a Nexplanon insertion were discussed with the patient including failureof the product, bruising with insertion, and irregular bleeding patterns. The patient agreed to go ahead with the procedure. Nexplanon insertion: A joselo was made 7 cm medial to the medial epicondyle of the non-dominant left arm below the biceps/triceps groove. The area was cleansed with alcohol swab and 1% lidocaine was injected subdermally and along the insertion track. Under sterile technique the area was prepped with betadine x 3. Nexplanon was inserted per manufacturers guidelines. Scant bleeding following procedure. Hemostasis achieved with Steri-strips and pressure dressing. Nexplanon palpable by patient and myself following the procedure. Nexplanon Lot #: [id number] - [id number], Expd 06/2020 Assessment/Plan: Harley Friedman is a 23 y.o. whose PMH is significant for evelopmental delay and depression who had a successful insertion of a Nexplanon today. She and I were both able to feel the Nexplanon in her left arm. ??? Remove pressure dressing in 24 hours, remove steri strips in one week. Call with any signs of erythema or pain around site. Effective immediately. Plan removal in three years. Given Nexplanon card and patient information sheet. ??? instructed to use Ibuprofen for discomfort at the site of insertion Dr Yvette Frias was present for the entire procedure. Crystal Pereira MD PGY1 05/08/2018 I was the attending physician supervising the resident in the above care and I was present with theresident for the entire procedure. Yvette Frias MD * Cinthya Galvez MSW - 05/08/2018 9:07 AM EST Social Work Note Office of Care Management Follow Up: Phone call received this morning from Harley's DCF case management manager Jonathan Emilia advising that [facility] was granted custody of Harley's , Luis, last night. He states that he spoke with Harley last nightto inform her of this by phone, but is not certain how much she understood. There will be a court hearing in the next 1-2 days, and he is also waiting for confirmation of this information and will bein touch with Harley and this Well Drill Operator Helper Cable Tool about the date and time of the hearing once he becomes aware. Plan: [facility] granted custody of Jocelynes infant last night. SW will continue to follow. URBANO Falcon Pager: [phone] * Yvette Frias MD - 05/08/2018 6:39 AM EST Vaginal Delivery Note Information for the patient's : Bailey, Baby boy [[id number]] Delivery Date and Time:05/06/2018 2:41 PM Delivery Type: Vaginal, Spontaneous Delivery Patient ID Harley Friedman is a 23 y.o. who is PPD#2 s/p vaginal delivery at 34w4d. Her wascomplicated by labor, depression, and hx labor. Subjective: Complains of nothing. Pain is wellcontrolled. She is tolerating diet well, urinating and ambulating well. Review of Systems Chest: no chest pain, no shortness of breath GI: + flatus, + bowel movement : urinating well without Cardona, no hematuria Lochia: small Last Set of Vitals: Most Recent Vitals: 05/07/18 2109 BP: 127/77 Pulse: 82 Resp: 18 Temp: 36.7 ??C (98.1 ??F) SpO2: 97% Weight: 79.8 kg (175 lb 14.4 oz) Physical Exam General Appearance: appears comfortable NAD Chest: CTAB, no wrc CV: RRR no mrg Abd: soft, nondistended nontender Ext: no edema or calf tenderness Uterine Fundus: firm, non-tender and at umbilicus Lochia: deferred Perineum: not inspected Significant Labs: Lab Results Component Value Date ABORH O Pos 04/25/2018 WBC 12.2 (H) 04/25/2018 HCT 38.7 04/25/2018 HGB 12.7 04/25/2018 RUBLIGG Positive 07/19/2016 Immunization status: Requires Pertussis Assessment & Plan Harley Friedman is a 23 y.o. who is PPD#2 s/p vaginal delivery at 34w4d. Her wascomplicated by labor, depression, and hx labor. ?? Patient is doing well without problems. ??? nutrition: breast ??? Contraception: Nexplanon ??? care: 2w depression screen, 6w follow-up visit. ??? Anticipate discharge today This patient was seen and discussed on rounds. Crystal Pereira MD 05/08/2018 I have seen and examined the patient, providing vazquez components as outlined below. I have reviewed the resident???s above note; my evaluation of the patient is below: PPD#2 from . Doing well physically. Nexplanon placed. Plan for d/c to home today. Yvette Frias MD * Cinthya Galvez MSW - 05/07/2018 1:32 PM EST Social Work Note Office of Care Management Follow Up: Harley gave yesterday to baby Luis. He is in the ICN and doing well overall. Met with Harleyin her room on BP today for ongoing assessment and support. Also present was Harley's mother, Daniela. Harley is feeling well overall. She states that she is not too sore or tired. She is pleased with how the baby is doing, and proudly showed this Well Drill Operator Helper Cable Tool a picture of him on her cell phone. Advised Harley that Jonathan Nieto had called this morning and that this Well Drill Operator Helper Cable Tool had informed him of the baby's . He indicated that he received a message from Harley on Monday and would be reaching out to her by phone today. Harley is anxious to speak with him, wanting to know what I have to do to keep custody of my baby. She went on to state that, When they [DCF] took Diana, it nearly killed me. If theytake this baby too, it will literally kill me. Harley was matter of fact in this statement. KHAI shawcharla rmed how emotionally difficult it would be to lose custody of Luis and offered that we want to support her through whatever transpires, encouraging her to reach out to her care team for support as needed. Advised Harley that we will keep her informed of any communication from/with DCF. Plan: KHAI will continue to follow. URBANO Falcon Pager: [phone] * Crystal Pereira MD - 05/07/2018 7:37 AM EST Vaginal Delivery Note Information for the patient's : Bailey, Baby boy [[id number]] Delivery Date and Time:05/06/2018 2:41 PM Delivery Type: Vaginal, Spontaneous Delivery Patient ID Harley Friedman is a 23 y.o. who is PPD#1 s/p vaginal delivery at 34w4d. Her wascomplicated by labor, depression, and hx labor. Subjective: Complains of nothing. Pain is wellcontrolled. She is tolerating diet well, urinating and ambulating well. Review of Systems Chest: no chest pain, no shortness of breath GI: + flatus, + bowel movement : urinating well without Cardona, no hematuria Lochia: small Last Set of Vitals: Most Recent Vitals: 05/06/18 1819 BP: 125/76 Pulse: 77 Resp: Temp: SpO2: Weight: 79.8 kg (175 lb 14.4 oz) Physical Exam General Appearance: appears comfortable NAD Chest: CTAB, no wrc CV: RRR no mrg Abd: soft, nondistended nontender Ext: no edema or calf tenderness Uterine Fundus: firm, non-tender and at umbilicus Lochia: deferred Perineum: not inspected Significant Labs: Lab Results Component Value Date ABORH O Pos 04/25/2018 WBC 12.2 (H) 04/25/2018 HCT 38.7 04/25/2018 HGB 12.7 04/25/2018 RUBLIGG Positive 07/19/2016 Immunization status: Requires Pertussis Assessment & Plan Harley Friedman is a 23 y.o. who is PPD#1 s/p vaginal delivery at 34w4d. Her wascomplicated by labor, depression, and hx labor. ?? Patient is doing well without problems. ??? Infant nutrition: breast ??? Contraception: Nexplanon ??? care: 2w depression screen, 6w follow-up visit. ??? Anticipate discharge on PPD2 This patient was seen and discussed on rounds. Crystal Pereira MD 05/06/2018 Associated attestation - Rae Hare MD - 05/07/2018 4:43 PM EST Attending Note S: I saw Harley Friedman on rounds and agree with Dr. Pereira's note above.?? The patient feels well. She is ambulating and urinating without difficulty. She denies CP, SOB, leg pain. Her bleeding is moderate/normal. She is pumping, baby is in the NICU. O: BP 125/69 (BP Location (NBP): Left arm, Patient Position: Sitting) Pulse (!) 103 Temp 37.3 ??C (99.1 ??F) (Oral) Resp 18 Ht 160 cm (5' 2.99) Wt 79.8 kg (175 lb 14.4 oz) SpO2 98% ? Unknown BMI 31.17 kg/m?? NAD Abd soft, nontender Fundus firm and below the umbilicus Ext: bilat LE edema without erythema Impression:??23 y.o. day 1 s/p .?? Doing well. Plan:??Continue care. Anticipate discharge tomorrow. She reports that her mood is stableon her medication, she had issues w/ PP depression after her first delivery, but is doing better with this one. Has good support at home. Rae Hare MD * Emily Garcia RN - 05/06/2018 6:06 PM EST Pt has vomited twice since return from [facility]. She was attempting to eat her supper. She has been drinking a small amount < 150 cc of water and she vomited aprox. 700 cc solids and fluid. She does not feel nauseous now, however she stated she would be unable to drink more fluid at this time other than sips of water.. Dr. Edvin Light ordered bolus LR 500 cc which is now infusing. * Emily Garcia RN - 05/06/2018 5:12 PM EST 1644-Patient assisted to ambulate, tolerated walking to [facility] done.Noted blood Clot appx golfball size, bleeding wnl. Dr. West notified. Patient unable to void, BS- 33ml. Patient wheeled to [facility] to visit baby. * Stefani West MD - 05/06/2018 10:36 AM EST Interval Event Note Patient called out reporting that she started leaking fluid. Examination at bedside revealed that she was grossly ruptured of a small amount of clear +nitrazine fluid. Patient placed back on EFM. BSUS revealed cephalic presentation. SVE 7/80%/-2/mid/soft with forebag palpated. SSE showed pooling of blood tinged fluid +ferning. Patient continues to have leakage of fluid with glistening clear fluid seen on patient's perineum and a small amount on her pad. EFM shows baseline 145/ moderate variability / no accels / no decels, Cat 1 FHT Bent shows q2-3 min ctx Harley Friedman is a 23 y.o. female at 34w4d with advanced cervical dilation, now with PPROM. GBS negative 2018 at OSH. As she is past 34 weeks, recommended induction of labor. She is currently brayden q2-3 min on EFM. Family not currently at bedside. We will pursue expectant management until patient's family arrives, then start Pitocin. She is considering whether or not she wants an epidural in labor. Patient d/w Dr. Antunez, attending. STEFANI WEST MD PGY-4 05/06/2018 * Larry Antunez MD - 05/06/2018 8:33 AM EST Obstetrical Antepartum Progress Note Harley Friedman is a 23 y.o. female with an CHRISTIANO of 06/13/2018, who is at 34w4d gestation, admitted with labor which has since stopped, and now with advanced cervical dilation. This is HD#12. Active Problems: Active Hospital Problems Diagnosis ??? Premature cervical dilation in third trimester ??? Intellectual disability ??? labor ??? Major depressive disorder, recurrent episode, moderate (DEPRESSION) ??? ADHD (attention deficit hyperactivity disorder), combined type Resolved Hospital Problems No resolved problems to display. 24 Hour Events - No acute events Subjective: Harley feels well. She had some irregular contractions overnight that went away. She currently denies any cramps, contractions, vaginal bleeding, or LOF. She reports good movement. Review of Systems Obstetric Review of Systems Total Weight Gain this Not found. Movement: normal Contractions: none Leaking: None Bleeding; none now Preeclampsia signs and symptoms: None Physical Exam Most Recent Vitals: 05/06/18 0745 BP: 125/82 Pulse: 91 Resp: 18 Temp: 36.9 ??C (98.4 ??F) SpO2: General: NAD, sitting up comfortably CV: Regular rate and rhythm, normal S1 and S2, no murmurs, rubs, or gallops Pulm: Lungs clear to auscultation bilaterally, no wheezes, rales, or rhonchi Abd: Soft, non-tender, non-distended, gravid Extremities: Warm, well perfused, no peripheral edema, non-tender. SCDs in place. Uterus: non-tender Cervix Exam: Not reexamined today, last exam below Dilation: 7 (05/06/18 1024) Effacement: 80 Station: -2 Cervical Position: Mid-Position Consistency: Soft Whyte Score: 7 OB Examiner: MD Angel Heart Rate Interpretation: see daily NST note Most Recent Ultrasound Date: 04/26/18 Presentation: cephalic Placenta: anterior KARTIK wnl, 17.21 EFW 1834, 37% Prominent right umbilical vein again visualized GBS Lab Results Component Value Date GBSSCREEN Negative (External Lab) 04/25/2018 Assessment & Plan: 23 y.o. female with an CHRISTIANO 06/13/2018, who is at 34w4d weeks gestational age, HD#12 hospitalized for advanced cervical dilation. 1. Stalled labor, now advanced cervical dilation: Due to early gestational age, will likelyremain hospitalized until either delivery or 35 weeks gestation. -Labs: CBC, T&S, UA on admission -Delivery indications: progressive labor and non-reassuring status -Tocolysis: not indicated -GBS negative 04/28/18 (see scanned docs) -Will likely remain hospitalized until 35 weeks then transport back to [facility] ?? 2. Status - Continuous EFM on admission reassuring; continue daily NST - Last Growth US: 04/26/18 - Presentation: cephalic by 04/26 US - Delivery Plan: - Steroid status: Complete 04/26 - Magnesium for neuroprotection: Not indicated - Consults obtained: Neonatology, Anesthesiology ?? 3. care - GBS status: GBS negative at OSH - 1hr GTT: 123 mg/dL on 03/23/18 in records from OSH - TDaP: given 04/28/18 - Contraception Plan: Nexplanon - Consents obtained: none 4. Depression - Prozac continued Signed: STEFANI WEST MD PGY34 05/06/2018 I have seen and examined the patient, providing vazquez components as outlined below. I have reviewed the resident???s above note; my evaluation of the patient is below: 34 4/7 weeks arrested PTL advanced cervix dilation 6cm. FM felt, no LOF, no bleeding or brayden. AFVSS Abdomen soft, NT Uterus NT Ext NT I/R 34 4/7 weeks TPTL 6cm dilated status reassuring S/p BMZ GBBS pending Social service involved Possible transfer back to referring hospital at 35 weeks for continued inpatient management due to cognitive delay and risk for precipitous delivery or cord prolapse. LARRY ANTUNEZ MD * Gianni Lawson MD - 05/05/2018 11:15 AM EST NST Fetus A 05/05/2018 HR (Beats/Min) 145 HR Variability moderate (amplitude range 6 to 25 bpm) HR Accelerations greater than/equal to 15 bpm;lasting at least 15 seconds HR Decelerations none Contraction Frequency (Minutes) 0 Nonstress Test Interpretation Reactive, >32 weeks: two 15 bpm accelerations lasting 15 seconds Overall Impression Reassuring for gestational age Comments - Associated attestation - Antonio Bajwa MD - 05/08/2018 11:46 AM EST I personally reviewed the nonstress test and agree with the interpretation as documented above. Antonio Bajwa MD 05/08/2018 11:46 AM * Larry Antunez MD - 05/05/2018 5:21 AM EST Obstetrical Antepartum Progress Note Harley Friedman is a 23 y.o. female with an CHRISTIANO of 06/13/2018, who is at 34w3d gestation, admitted with labor which has since stopped, and now with advanced cervical dilation. This is HD#11. Active Problems: Active Hospital Problems Diagnosis ??? Premature cervical dilation in third trimester ??? Intellectual disability ??? labor ??? Major depressive disorder, recurrent episode, moderate (DEPRESSION) ??? ADHD (attention deficit hyperactivity disorder), combined type Resolved Hospital Problems No resolved problems to display. 24 Hour Events - No acute events Subjective: Harley feels well. She had some back pain overnight which has resolved and noticed several contractions yesterday when visiting with family. She currently denies any cramps, contractions,vaginal bleeding, or LOF. She reports good movement. Review of Systems Obstetric Review of Systems Total Weight Gain this Not found. Movement: normal Contractions: none Leaking: None Bleeding; none now Preeclampsia signs and symptoms: None Physical Exam Most Recent Vitals: 05/05/18 0851 BP: 133/84 Pulse: 85 Resp: 18 Temp: 37.1 ??C (98.8 ??F) SpO2: General: NAD, sitting up comfortably CV: Regular rate and rhythm, normal S1 and S2, no murmurs, rubs, or gallops Pulm: Lungs clear to auscultation bilaterally, no wheezes, rales, or rhonchi Abd: Soft, non-tender, non-distended, gravid Extremities: Warm, well perfused, no peripheral edema, non-tender. SCDs in place. Uterus: non-tender Cervix Exam: Not reexamined today, last exam below Dilation: 6 (04/25/185) Effacement: 50 Station: -3 Cervical Position: Mid-Position Consistency: Soft Whyte Score: 7 OB Examiner: MD Angel Heart Rate Interpretation: see daily NST note Most Recent Ultrasound Date: 04/26/18 Presentation: cephalic Placenta: anterior KARTIK wnl, 17.21 EFW 1834, 37% Prominent right umbilical vein again visualized GBS Lab Results Component Value Date GBSSCREEN Negative 04/25/2018 Assessment & Plan: 23 y.o. female with an CHRISTIANO 06/13/2018, who is at 34w3d weeks gestational age, HD#11 hospitalized for advanced cervical dilation. 1. Stalled labor, now advanced cervical dilation: No further contractions since hospital day #1. Small amount of vaginal bleeding that day with concern for small abruption, but no ongoing bleeding. Due to early gestational age, will likely remain hospitalized until either delivery or 35 weeks gestation. -Labs: CBC, T&S, UA on admission -Delivery indications: progressive labor and non-reassuring status -Tocolysis: not indicated -Penicillin for GBS unknown: bolus given on admission, now discontinued -Will likely remain hospitalized until 35 weeks then transport back to [facility] ?? 2. Status - Continuous EFM on admission reassuring; continue daily NST - Last Growth US: 04/26/18 - Presentation: cephalic by 04/26 US - Delivery Plan: - Steroid status: Complete 04/26 - Magnesium for neuroprotection: Not indicated - Consults obtained: Neonatology, Anesthesiology ?? 3. care - GBS status: GBS negative at OSH, recollected on 05/04 and pending - 1hr GTT: 123 mg/dL on 03/23/18 in records from OSH - TDaP: given 04/28/18 - Contraception Plan: Nexplanon - Consents obtained: none 4. Depression - Prozac continued Signed: Gianni Lawson MD PGY3 05/05/2018 I have seen and examined the patient, providing vazquez components as outlined below. I have reviewed the resident???s above note; my evaluation of the patient is below: 34 3/7 weeks arrested PTL advanced cervix dilation 6cm. FM felt, no LOF, no bleeding or brayden. AFVSS Abdomen soft, NT Uterus NT Ext NT I/R 34 3/7 weeks TPTL 6cm dilated status reassuring S/p BMZ GBBS pending Social service involved Possible transfer back to referring hospital at 35 weeks for continued inpatient management due to cognitive delay and risk for precipitous delivery or cord prolapse. LARRY ANTUNEZ MD * Larry Antunez MD - 05/04/2018 11:39 AM EST NST Fetus A 05/04/2018 HR (Beats/Min) 145 HR Variability moderate (amplitude range 6 to 25 bpm) HR Accelerations present HR Decelerations none Contraction Frequency (Minutes) none Nonstress Test Interpretation Reactive, >32 weeks: two 15 bpm accelerations lasting 15 seconds Overall Impression Reassuring for gestational age Comments - I was the attending physician supervising the resident in the above care and I was present with theresident for the entire procedure. LARRY ANTUNEZ MD * Althea Bacon DT - 05/04/2018 9:51 AM EST Nutrition Services - Initial Note Harley Friedman : 1995 AGE: 23 y.o. Patient Active Problem List Diagnosis Date Noted ??? Hospital-Premature cervical dilation in third trimester 2018 ??? Hospital-Intellectual disability 2018 ??? Hospital- labor 04/25/2018 ??? premature rupture of membranes (PPROM) with unknown onset of labor 07/19/2016 ??? Contraception 07/19/2016 ??? PDA: patient was delivered at 26wks gestation 01/27/2016 ??? Hospital-Major depressive disorder, recurrent episode, moderate (DEPRESSION) 05/15/2014 ??? OYRK (headache) 02/13/2014 ??? Hospital-ADHD (attention deficit hyperactivity disorder), combined type 02/13/2014 Reason for Nutrition Intervention: Hospital Day 9 Diet Order: Gestational (BP) Appetite: Good Food allergies: NKFA Chewing/Swallowing difficulty: None - per pt Ht Readings from Last 3 Encounters: 04/30/18 160 cm (5' 2.99) 07/19/16 161.3 cm (5' 3.5) 03/30/16 161.3 cm (5' 3.5) (38 %)* * Growth percentiles are based on CDC (Girls, 2-20 Years) data. Wt Readings from Last 3 Encounters: 04/30/18 79.8 kg (175 lb 14.4 oz) 01/12/18 72.9 kg (160 lb 11.2 oz) 11/23/17 72.6 kg (160 lb) Body mass index is 31.17 kg/m??. Vitamins/Minerals: Multivitamin, Tums noted. Assessment: Patient seen for hospital LOS. Pt informed of current diet order without questions. Shereported a good appetite without difficulty chewing or swallowing. Pt reported she was experiencingnauseas this morning 05/04, pt reported nursing aware. Pt reported she ate 100% of breakfast 05/04.[employer] provided pt with cafeteria menu for more menu options. Pt reported she is not interested in snacks at this time. Patient had no further questions at this time. Good PO intake encouraged. Encouraged patient to contact Food and Nutrition services with any questions that may arise. Nutrition will continue to monitor and follow up with pt to further assess level of PO intake and appetite. Nutrition Plan: Continue current diet. Cafeteria menu. Monitor weight. Encourage good po intake. Support and encouragement provided. Nutrition services to follow weekly thru hospital course unless consulted in the interim. FAWN Carr * Larry Antunez MD - 05/04/2018 6:00 AM EST Obstetrical Antepartum Progress Note Harley Friedman is a 23 y.o. female with an CHRISTIANO of 06/13/2018, who is at 34w2d gestation, admitted with labor which has since stopped, and now with advanced cervical dilation. This is HD#10. Active Problems: Active Hospital Problems Diagnosis ??? Premature cervical dilation in third trimester ??? Intellectual disability ??? labor ??? Major depressive disorder, recurrent episode, moderate (DEPRESSION) ??? ADHD (attention deficit hyperactivity disorder), combined type Resolved Hospital Problems No resolved problems to display. 24 Hour Events - No acute events Subjective: Harley feels well. She denies any cramps, contractions, vaginal bleeding, or LOF. She reports good movement. Review of Systems Obstetric Review of Systems Total Weight Gain this Not found. Movement: normal Contractions: none Leaking: None Bleeding; none now Preeclampsia signs and symptoms: None Physical Exam Most Recent Vitals: 05/04/18 0829 BP: Pulse: Resp: Temp: 36.8 ??C (98.2 ??F) SpO2: General: NAD, sitting up comfortably CV: Regular rate and rhythm, normal S1 and S2, no murmurs, rubs, or gallops Pulm: Lungs clear to auscultation bilaterally, no wheezes, rales, or rhonchi Abd: Soft, non-tender, non-distended, gravid Extremities: Warm, well perfused, no peripheral edema, non-tender. SCDs in place. Uterus: non-tender Cervix Exam: Not reexamined today, last exam below Dilation: 6 (04/25/18 1915) Effacement: 50 Station: -3 Cervical Position: Mid-Position Consistency: Soft Whyte Score: 7 OB Examiner: MD Angel Heart Rate Interpretation: see daily NST note Most Recent Ultrasound Date: 04/26/18 Presentation: cephalic Placenta: anterior KARTIK wnl, 17.21 EFW 1834, 37% Prominent right umbilical vein again visualized GBS Lab Results Component Value Date GBSSCREEN Negative 04/25/2018 Assessment & Plan: 23 y.o. female with an CHRISTIANO 06/13/2018, who is at 34w2d weeks gestational age, HD#10 hospitalized for advanced cervical dilation. 1. Stalled labor, now advanced cervical dilation: No further contractions since hospital day #1. Small amount of vaginal bleeding that day with concern for small abruption, but no ongoing bleeding. Due to early gestational age, will likely remain hospitalized until either delivery or 35 weeks gestation. -Labs: CBC, T&S, UA on admission -Delivery indications: progressive labor and non-reassuring status -Tocolysis: not indicated -Penicillin for GBS unknown: bolus given on admission, now discontinued -Will likely remain hospitalized until 35 weeks then transport back to [facility] ?? 2. Status - Continuous EFM on admission reassuring; continue daily NST - Last Growth US: 04/26/18 - Presentation: cephalic by 04/26 US - Delivery Plan: - Steroid status: Complete 04/26 - Magnesium for neuroprotection: Not indicated - Consults obtained: Neonatology, Anesthesiology ?? 3. care - GBS status: GBS negative at OSH - 1hr GTT: No results in OSH records, will need to perform screening - TDaP: not documented - will obtain records - Contraception Plan: Nexplanon - Consents obtained: none 4. Depression - Prozac continued Signed: Jerilyn Lewis MD PGY3 05/04/2018 I have seen and examined the patient, providing vazquez components as outlined below. I have reviewed the resident???s above note; my evaluation of the patient is below: 34 2/7 weeks arrested PTL advanced cervix dilation 6cm. FM felt, no LOF, no bleeding or brayden. AFVSS Abdomen soft, NT Uterus NT Ext NT I/R 34 2/7 weeks TPTL 6cm dilated status reassuring S/p BMZ GBBS pending Social service involved Possible transfer back to referring hospital at 35 weeks for continued inpatient management due to cognitive delay and risk for precipitous delivery or cord prolapse. LARRY ANTUNEZ MD * Raleigh De Leon RN - 05/03/2018 1:32 PM EST Patient xiao navarro states very concerned baby is not moving and he always moves, monitor on to document FHR patient reassured * Stefani West MD - 05/03/2018 12:10 PM EST Antepartum NST Note NST Fetus A 05/03/2018 HR (Beats/Min) 145 HR Variability moderate (amplitude range 6 to 25 bpm) HR Accelerations present;lasting at least 15 seconds;greater than/equal to 15 bpm HR Decelerations none Contraction Frequency (Minutes) 2-5 Nonstress Test Interpretation Reactive, >32 weeks: two 15 bpm accelerations lasting 15 seconds Overall Impression Reassuring for gestational age Comments - Interpretation: Reactive, overall reassuring for gestational age. STEFANI WEST MD PGY-4 05/03/2018 Associated attestation - Antonio Bajwa MD - 05/03/2018 5:28 PM EST I personally reviewed the nonstress test and agree with the interpretation as documented above. Antonio Bajwa MD 05/03/2018 5:28 PM * Larry Antunez MD - 05/03/2018 10:43 AM EST Obstetrical Antepartum Progress Note Harley Friedman is a 23 y.o. female with an CHRISTIANO of 06/13/2018, who is at 34w1d gestation, admitted with labor which has since stopped, and now with advanced cervical dilation. This is HD#9. Active Problems: Active Hospital Problems Diagnosis ??? Premature cervical dilation in third trimester ??? Intellectual disability ??? labor ??? Major depressive disorder, recurrent episode, moderate (DEPRESSION) ??? ADHD (attention deficit hyperactivity disorder), combined type Resolved Hospital Problems No resolved problems to display. 24 Hour Events - No acute events Subjective: Harley feels well. She denies any cramps, contractions, vaginal bleeding, or LOF. She reports good movement. Review of Systems Obstetric Review of Systems Total Weight Gain this Not found. Movement: normal Contractions: none Leaking: None Bleeding; none now Preeclampsia signs and symptoms: None Physical Exam Most Recent Vitals: 05/03/18 0826 BP: 120/73 Pulse: 87 Resp: 16 Temp: 36.8 ??C (98.2 ??F) SpO2: 98% General: Patient sitting comfortably in bed during our conversation, in no apparent distress CV: Regular rate and rhythm, normal S1 and S2, no murmurs, rubs, or gallops Pulm: Lungs clear to auscultation bilaterally, no wheezes, rales, or rhonchi Abd: Soft, non-tender, non-distended, gravid Extremities: Warm, well perfused, no peripheral edema, non-tender Uterus: non-tender Cervix Exam: Not reexamined today, last exam below Dilation: 6 (04/25/18 1915) Effacement: 50 Station: -3 Cervical Position: Mid-Position Consistency: Soft Whyte Score: 7 OB Examiner: MD Angel Heart Rate Interpretation: see daily NST note Most Recent Ultrasound Date: 04/26/18 Presentation: cephalic Placenta: anterior KARTIK wnl, 17.21 EFW 1834, 37% Prominent right umbilical vein again visualized GBS Lab Results Component Value Date GBSSCREEN Negative 04/25/2018 Assessment & Plan: 23 y.o. female with an CHRISTIANO 06/13/2018, who is at 34w1d weeks gestational age, HD#9 hospitalized for advanced cervical dilation. 1. Stalled labor, now advanced cervical dilation: No further contractions since hospital day #1. Small amount of vaginal bleeding that day with concern for small abruption, but no ongoing bleeding. Due to early gestational age, will likely remain hospitalized until either delivery or 35 weeks gestation. -Labs: CBC, T&S, UA on admission -Delivery indications: progressive labor and non-reassuring status -Tocolysis: none due to bleeding upon admission and concern for small abruption -Penicillin for GBS unknown bolus given on admission, now discontinued -Will likely remain hospitalized until 35 weeks if still , when stable to transport back [facility] ?? 2. Status - Continuous EFM on admission reassuring; Daily NST - Last Growth US: 04/26/18 - Presentation: cephalic by 04/26 US - Delivery Plan: - Steroid status: Complete 04/26 - Magnesium for neuroprotection: Not indicated - Consults obtained: Neonatology, Anesthesiology ?? 3. care - GBS status: GBS negative at OSH - 1hr GTT: No results in OSH records, will need to perform screening - TDaP: not documented - will obtain records - Contraception Plan: Nexplanon - Consents obtained: none 4. Depression - Prozac continued Signed: STEFANI WEST MD PGY4 05/03/2018 I have seen and examined the patient, providing vazquez components as outlined below. I have reviewed the resident???s above note; my evaluation of the patient is below: 34 1/7 weeks arrested PTL advanced cervix dilation 6cm. FM felt, no LOF, no bleeding or brayden. AFVSS Abdomen soft, NT Uterus NT Ext NT I/R 34 1/7 weeks TPTL 6cm dilated status reassuring S/p BMZ GBBS pending Social service involved Possible transfer back to referring hospital at 35 weeks for continued inpatient management due to cognitive delay and risk for precipitous delivery or cord prolapse. LARRY ANTUNEZ MD * Gianni Lawson MD - 05/02/2018 2:18 PM EST NST Fetus A 05/02/2018 HR (Beats/Min) 135 HR Variability moderate (amplitude range 6 to 25 bpm) HR Accelerations greater than/equal to 15 bpm;lasting at least 15 seconds HR Decelerations absent Contraction Frequency (Minutes) 2-5 min Nonstress Test Interpretation Reactive, >32 weeks: two 15 bpm accelerations lasting 15 seconds Overall Impression Reassuring for gestational age Comments - Associated attestation - Antonio Bajwa MD - 05/03/2018 7:53 AM EST I personally reviewed the nonstress test and agree with the interpretation as documented above. Antonio Bajwa MD 05/03/2018 7:53 AM * Larry Antunez MD - 05/02/2018 2:15 PM EST Obstetrical Antepartum Progress Note Harley Friedman is a 23 y.o. female with an CHRISTIANO of 06/13/2018, Date entered prior to episodecreation who is at 34w0d gestation, admitted with labor which has since stopped, and now with advanced cervical dilation. This is HD#8. Active Problems: Active Hospital Problems Diagnosis ??? Premature cervical dilation in third trimester ??? Intellectual disability ??? labor ??? Major depressive disorder, recurrent episode, moderate (DEPRESSION) ??? ADHD (attention deficit hyperactivity disorder), combined type Resolved Hospital Problems No resolved problems to display. 24 Hour Events - No acute events Subjective: Harley feels well. She denies any cramps, contractions, vaginal bleeding, or LOF. She reports good movement. Review of Systems Obstetric Review of Systems Total Weight Gain this Not found. Movement: normal Contractions: none Leaking: None Bleeding; none now Preeclampsia signs and symptoms: None Physical Exam Most Recent Vitals: 05/02/18 1411 BP: 106/75 Pulse: 94 Resp: Temp: 36.8 ??C (98.3 ??F) SpO2: General: Patient sitting comfortably in bed during our conversation, in no apparent distress CV: Regular rate and rhythm, normal S1 and S2, no murmurs, rubs, or gallops Pulm: Lungs clear to auscultation bilaterally, no wheezes, rales, or rhonchi Abd: Soft, non-tender, non-distended, gravid Extremities: Warm, well perfused, no peripheral edema, non-tender Uterus: non-tender Cervix Exam: Not reexamined today, last exam below Dilation: 6 (04/25/181914) Effacement: 50 Station: -3 Cervical Position: Mid-Position Consistency: Soft Whyte Score: 7 OB Examiner: MD Angel Heart Rate Interpretation: see daily NST note Most Recent Ultrasound Date: 04/26/18 Presentation: cephalic Placenta: anterior KARTIK wnl, 17.21 EFW 1834, 37% Prominent right umbilical vein again visualized GBS Lab Results Component Value Date GBSSCREEN Negative 04/25/2018 Assessment & Plan: 23 y.o. female with an 06/13/2018, Date entered prior to episode creation who is at 34w0d weeks gestational age, HD#8 hospitalized for advanced cervical dilation. 1. Stalled labor, now advanced cervical dilation: No further contractions since hospital day #1. Small amount of vaginal bleeding that day with concern for small abruption, but no ongoing bleeding. Due to early gestational age, will likely remain hospitalized until either delivery or 34-35 weeks gestation. -Labs: CBC, T&S, UA on admission -Delivery indications: progressive labor and non-reassuring status -Tocolysis: none due to bleeding upon admission and concern for small abruption - Penicillin for GBS unknown bolus given on admission, now discontinued - Will likely remain hospitalized until 35 weeks if still , when stable to transport back to [facility] ?? 2. Status - Continuous EFM on admission reassuring; Daily NST - Last Growth US: 04/26/18 - Presentation: cephalic by 04/26 US - Delivery Plan: - Steroid status: Complete 04/26 - Magnesium for neuroprotection: Not indicated - Consults obtained: Neonatology, Anesthesiology ?? 3. care - GBS status: GBS negative at OSH - 1hr GTT: Not available in OSH records -- will obtain further records today - TDaP: not documented - will obtain records - Contraception Plan: Nexplanon - Consents obtained: none 4. Depression - Prozac continued Signed: Gianni Lawson MD PGY3 05/02/2018 I have seen and examined the patient, providing vazquez components as outlined below. I have reviewed the resident???s above note; my evaluation of the patient is below: 34 0/7 weeks arrested PTL advanced cervix dilation 6cm. FM felt, no LOF, no bleeding or brayden. AFVSS Abdomen soft, NT Uterus NT Ext NT I/R 34 0/7 weeks TPTL 6cm dilated status reassuring S/p BMZ GBBS pending Social service involved Possible transfer back to referring hospital at 35 weeks for continued inpatient management due to cognitive delay and risk for precipitous delivery or cord prolapse. LARRY ANTUNEZ MD * Cinthya Galvez, COMPUTER GRAPHICS ILLUSTRATOR - 05/02/2018 1:48 PM EST Social Work Note Office of Care Management Follow Up: Harley is now 34+0 weeks gestation. This is HD #8. Harley remains hospitalized for advanced cervical dilation. She was admitted with concern for labor, however this has now stalled. Should she remain undelivered until 35 weeks gestation, she may be transferred back to her home hospital, [facility]. Met with Harley this morning in her room on the , accompanied by COMPUTER GRAPHICS ILLUSTRATOR Dillon Butt, who is orienting. Harley was in generally good spirits, although expressed some frustration that her father has not come to visit her this admission as she had hoped. Her mother is back in [facility] doing volunteer work, per Harley, so she has been by herself here for a while. She states she is occupying herself mostly by watching TV and using her cell phone. Harlye expressed ongoing concern regarding DCF involvement and [facility]'s plan to petition for custody of Harley's baby at . Harley reflected on the changes she feels that she has made since her daughter was born. She demonstrates some insight regarding the impact of her depression on her ability to care for her daughter and the importance of addressing her mental health now and in thepostpartum period following the of this baby. She continues to verbalize a commitment to remaining on her depression medication. Harley intends to reach out to her DCF worker, Jonathan Nieto, today, but is having a hard time willing herself to do so. She is not sure if her mom has spoken with Jonathan about her desire to care for Harley's baby. Plan: SW will continue to follow. URBANO Falcon Pager: [phone] * Kaitlin Vásquez RN - 05/02/2018 11:16 AM EST OFFICE OF CARE MANAGEMENT/operation agent BP provider team is considering transferring patient back to [facility] if she remains to 35 weeks gestation. Call in [place] Medicaid provider services at [phone]. Spoke with Tommie Jeff who confirmed that patient's insurance would cover a non-emergency ambulance transfer to another facility. Call reference number was [id number]. Kaitlin Vásquez RN, CM * Homa Espana MD - 05/01/2018 1:21 PM EST NST Progress Note NST Fetus A 05/01/2018 HR (Beats/Min) 140 HR Variability moderate (amplitude range 6 to 25 bpm) HR Accelerations lasting at least 15 seconds;greater than/equal to 15 bpm HR Decelerations intermittent Contraction Frequency (Minutes) 2-10 min Nonstress Test Interpretation Reactive, >32 weeks: two 15 bpm accelerations lasting 15 seconds Overall Impression Reassuring for gestational age Comments two spont variables vs. variability/baseline shift - continued monitoring and overall reassuring Homa Espana MD PGY3 05/01/2018 Associated attestation - Melissa Paez MD - 05/01/2018 2:49 PM EST I personally reviewed and interpreted this NST. Melissa Paez MD * Larry Antunez MD - 05/01/2018 5:41 AM EST Obstetrical Antepartum Progress Note Harley Friedman is a 23 y.o. female with an CHRISTIANO of 06/13/2018, Date entered prior to episodecreation who is at 33w6d gestation, admitted with labor which has since stopped, and now with advanced cervical dilation. This is HD#7. Active Problems: Active Hospital Problems Diagnosis ??? Premature cervical dilation in third trimester ??? Intellectual disability ??? labor ??? Major depressive disorder, recurrent episode, moderate (DEPRESSION) ??? ADHD (attention deficit hyperactivity disorder), combined type Resolved Hospital Problems No resolved problems to display. 24 Hour Events - No acute events Subjective: Harley feels well. She denies any cramps, contractions, vaginal bleeding, or LOF. She reports good movement. Review of Systems Obstetric Review of Systems Total Weight Gain this Not found. Movement: normal Contractions: none Leaking: None Bleeding; none now Preeclampsia signs and symptoms: None Physical Exam Most Recent Vitals: 05/01/18 0403 BP: Pulse: Resp: 18 Temp: SpO2: General: Patient sitting comfortably in bed during our conversation, in no apparent distress CV: Regular rate and rhythm, normal S1 and S2, no murmurs, rubs, or gallops Pulm: Lungs clear to auscultation bilaterally, no wheezes, rales, or rhonchi Abd: Soft, non-tender, non-distended, gravid Extremities: Warm, well perfused, no peripheral edema, non-tender Uterus: non-tender Cervix Exam: Not reexamined today, last exam below Dilation: 6 (04/25/18 191) Effacement: 50 Station: -3 Cervical Position: Mid-Position Consistency: Soft Whyte Score: 7 OB Examiner: MD Angel Heart Rate Interpretation: see daily NST note Most Recent Ultrasound Date: 04/26/18 Presentation: cephalic Placenta: anterior KARTIK wnl, 17.21 EFW 1834, 37% Prominent right umbilical vein again visualized GBS Lab Results Component Value Date GBSSCREEN Negative 04/25/2018 Assessment & Plan: 23 y.o. female with an 06/13/2018, Date entered prior to episode creation who is at 33w6d weeks gestational age, HD#7 hospitalized for advanced cervical dilation. 1. Stalled labor, now advanced cervical dilation: No further contractions since hospital day #1. Small amount of vaginal bleeding that day with concern for small abruption, but no ongoing bleeding. Due to early gestational age, will likely remain hospitalized until either delivery or 34-35 weeks gestation. -Labs: CBC, T&S, UA on admission -Delivery indications: progressive labor and non-reassuring status -Tocolysis: none due to bleeding upon admission and concern for small abruption - Penicillin for GBS unknown bolus given on admission, now discontinued - Will likely remain hospitalized until 35 weeks if still , when stable to transport back to [facility] ?? 2. Status - Continuous EFM on admission reassuring; Daily NST - Last Growth US: 04/26/18 - Presentation: cephalic by 04/26 US - Delivery Plan: - Steroid status: Complete 04/26 - Magnesium for neuroprotection: Not indicated - Consults obtained: Neonatology, Anesthesiology ?? 3. care - GBS status: GBS negative at OSH - 1hr GTT: Not available in OSH records -- will obtain further records today - TDaP: not documented - will obtain records - Contraception Plan: Nexplanon - Consents obtained: none 4. Depression - Prozac continued Patient seen on multidisciplinary rounds, Signed: BETTY HERNANDEZ MD PGY3 05/01/2018 I have seen and examined the patient, providing vazquez components as outlined below. I have reviewed the resident???s above note; my evaluation of the patient is below: 33 6/7 weeks arrested PTL advanced cervix dilation 6cm. FM felt, no LOF, no bleeding or brayden. AFVSS Abdomen soft, NT Uterus NT Ext NT I/R 33 6/7 weeks TPTL 6cm dilated status reassuring S/p BMZ GBBS pending Social service involved Possible transfer back to referring hospital at 35 weeks for continued inpatient management due to cognitive delay and risk for precipitous delivery or cord prolapse. LARRY ANTUNEZ MD * Homa Espana MD - 04/30/2018 11:54 AM EST NST Progress Note NST Fetus A 04/30/2018 HR (Beats/Min) 145 HR Variability moderate (amplitude range 6 to 25 bpm) HR Accelerations lasting at least 15 seconds;greater than/equal to 15 bpm HR Decelerations none Contraction Frequency (Minutes) none Nonstress Test Interpretation Reactive, >32 weeks: two 15 bpm accelerations lasting 15 seconds Overall Impression - Homa Espana MD PGY3 04/30/2018 Associated attestation - Serena Tipton MD - 04/30/2018 1:00 PM EST I personally reviewed this NST and agree with the resident's documented interpretation. Serena Tipton MD * Larry Antunez MD - 04/30/2018 6:19 AM EST Obstetrical Antepartum Progress Note Harley Friedman is a 23 y.o. female with an CHRISTIANO of 06/13/2018, Date entered prior to episodecreation who is at 33w5d gestation, admitted with advanced cervical dilation. This is HD#6. Active Problems: Active Hospital Problems Diagnosis ??? Premature cervical dilation in third trimester ??? Intellectual disability ??? labor ??? Major depressive disorder, recurrent episode, moderate (DEPRESSION) ??? ADHD (attention deficit hyperactivity disorder), combined type Resolved Hospital Problems No resolved problems to display. 24 Hour Events - No acute events Subjective: Harley feels well. She denies any cramps, contractions, vaginal bleeding, or LOF. She reports good movement. Review of Systems Obstetric Review of Systems Total Weight Gain this Not found. Movement: normal Contractions: none Leaking: None Bleeding; none now Preeclampsia signs and symptoms: None Physical Exam Most Recent Vitals: 04/29/181956 BP: 132/75 Pulse: 60 Resp: 18 Temp: 36.7 ??C (98.1 ??F) SpO2: General: Patient sitting comfortably in bed during our conversation, in no apparent distress CV: Regular rate and rhythm, normal S1 and S2, no murmurs, rubs, or gallops Pulm: Lungs clear to auscultation bilaterally, no wheezes, rales, or rhonchi Abd: Soft, non-tender, non-distended, gravid Extremities: Warm, well perfused, no peripheral edema, non-tender Uterus: non-tender Cervix Exam: Not reexamined today, last exam below Dilation: 6 (04/25/181914) Effacement: 50 Station: -3 Cervical Position: Mid-Position Consistency: Soft Whyte Score: 7 OB Examiner: MD Angel Heart Rate Interpretation: see daily NST note Most Recent Ultrasound Date: 04/26/18 Presentation: cephalic Placenta: anterior KARTIK wnl, 17.21 EFW 1834, 37% Prominent right umbilical vein again visualized GBS Lab Results Component Value Date GBSSCREEN Negative 04/25/2018 Assessment & Plan: 23 y.o. female with an 06/13/2018, Date entered prior to episode creation who is at 33w5d weeks gestational age, HD#6 hospitalized for advanced cervical dilation. 1. Stalled labor vs. advanced cervical dilation: No further contractions since hospital day#1. Small amount of vaginal bleeding that day with concern for small abruption, but no ongoing bleeding. Due to early gestational age, will likely remain hospitalized until either delivery or 34-35 weeks gestation. -Labs: CBC, T&S, UA on admission -Delivery indications: progressive labor and non-reassuring status -Tocolysis: none due to bleeding upon admission and concern for small abruption - Penicillin for GBS unknown bolus given on admission, now discontinued - Will likely remain hospitalized until 34-35 weeks if still ?? 2. Status - Continuous EFM on admission reassuring; Daily NST - Last Growth US: 04/26/18 - Presentation: cephalic by 04/26 US - Delivery Plan: - Steroid status: Complete 04/26 - Magnesium for neuroprotection: Not indicated - Consults obtained: Neonatology, Anesthesiology ?? 3. care - GBS status: GBS Pending at OSH - 1hr GTT: Not available in OSH records -- will obtain further records today - TDaP: not documented - will obtain records - Contraception Plan: Nexplanon - Consents obtained: none 4. Depression - Prozac continued Patient seen on multidisciplinary rounds, Signed: Homa Espana MD PGY3 04/30/2018 I have seen and examined the patient, providing vazquez components as outlined below. I have reviewed the resident???s above note; my evaluation of the patient is below: 33 5/7 weeks arrested PTL advanced cervix dilation 6cm. FM felt, no LOF, no bleeding or brayden. AFVSS Abdomen soft, NT Uterus NT Ext NT I/R 33 5/7 weeks TPTL 6cm dilated status reassuring S/p BMZ GBBS pending Social service involved Possible transfer back to referring hospital at 35 weeks for continued inpatient management due to cognitive delay and risk for precipitous delivery or cord prolapse. LARRY ANTUNEZ MD * Betty Hernandez - 04/29/2018 12:53 PM EST NST Daily Progress Note: NST Fetus A 04/29/2018 HR (Beats/Min) 140 HR Variability moderate (amplitude range 6 to 25 bpm) HR Accelerations present;lasting at least 15 seconds;greater than/equal to 15 bpm HR Decelerations none Contraction Frequency (Minutes) None Nonstress Test Interpretation Reactive, >32 weeks: two 15 bpm accelerations lasting 15 seconds Overall Impression Reassuring for gestational age BETTY HERNANDEZ MD PGY4 04/29/18 Associated attestation - Serena Tipton MD - 04/29/2018 4:23 PM EST I personally reviewed this NST and agree with the resident's documented interpretation. Serena Tipton MD * Betty Hernandez - 04/29/2018 6:29 AM EST Obstetrical Antepartum Progress Note Harley Friedman is a 23 y.o. female with an CHRISTIANO of 06/13/2018, Date entered prior to episodecreation who is at 33w4d gestation, admitted with labor vs. advanced cervical dilation. This is HD#5. Active Problems: Active Hospital Problems Diagnosis ??? Premature cervical dilation in third trimester ??? Intellectual disability ??? labor ??? Major depressive disorder, recurrent episode, moderate (DEPRESSION) ??? ADHD (attention deficit hyperactivity disorder), combined type Resolved Hospital Problems No resolved problems to display. 24 Hour Events - No acute events Subjective: Harley feels well. She denies any cramps, contractions, vaginal bleeding, or LOF. She reports good movement. Review of Systems Obstetric Review of Systems Total Weight Gain this Not found. Movement: normal Contractions: none Leaking: None Bleeding; none now Preeclampsia signs and symptoms: None Physical Exam Most Recent Vitals: 04/29/18 0756 BP: 118/74 Pulse: 68 Resp: 18 Temp: 36.6 ??C (97.9 ??F) SpO2: General: Patient sitting comfortably in bed during our conversation, in no apparent distress CV: Regular rate and rhythm, normal S1 and S2, no murmurs, rubs, or gallops Pulm: Lungs clear to auscultation bilaterally, no wheezes, rales, or rhonchi Abd: Soft, non-tender, non-distended, gravid Extremities: Warm, well perfused, no peripheral edema, non-tender Uterus: non-tender Cervix Exam: Not reexamined today, last exam below Dilation: 6 (04/25/181914) Effacement: 50 Station: -3 Cervical Position: Mid-Position Consistency: Soft Whyte Score: 7 OB Examiner: MD Angel Heart Rate Interpretation: see daily NST note Most Recent Ultrasound Date: 04/26/18 Presentation: cephalic Placenta: anterior KARTIK wnl, 17.21 EFW 1834, 37% Prominent right umbilical vein again visualized GBS: Pending @ OSH Assessment & Plan: 23 y.o. female with an 06/13/2018, Date entered prior to episode creation who is at 33w4d weeks gestational age, HD#5 hospitalized for labor vs. advanced cervical dilation. 1. Stalled labor vs. advanced cervical dilation: No further contractions since hospital day#1. Small amount of vaginal bleeding that day with concern for small abruption, but no ongoing bleeding. Due to early gestational age, will likely remain hospitalized until either delivery or 34-35 weeks gestation. -Labs: CBC, T&S, UA on admission -Delivery indications: progressive labor and non-reassuring status -Tocolysis: none due to bleeding upon admission and concern for small abruption - Penicillin for GBS unknown bolus given on admission, now discontinued - Will likely remain hospitalized until 34-35 weeks if still ?? 2. Status - Continuous EFM on admission reassuring; Daily NST - Last Growth US: 04/26/18 - Presentation: cephalic by 04/26 US - Delivery Plan: - Steroid status: Complete 04/26 - Magnesium for neuroprotection: Not indicated - Consults obtained: Neonatology, Anesthesiology ?? 3. care - GBS status: GBS Pending at OSH - 1hr GTT: Not available in OSH records -- will obtain further records today - TDaP: not documented - will obtain records - Contraception Plan: Nexplanon - Consents obtained: none 4. Depression - Prozac continued Patient seen on multidisciplinary rounds, Signed: BETTY HERNANDEZ MD PGY4 04/29/2018 Associated attestation - Iona Ellison MD - 04/29/2018 1:54 PM EST MFM attending note I saw and evaluated the patient with the team on multidisciplinary rounds. I agree with the findings and the plan of care as documented in the residents' note. The patient reports feeling well. She denies contractions, leaking of fluid or bleeding. She reports good activity. My physical exam confirms and/or revises the resident's exam. Temp: [36.6 ??C (97.9 ??F)-36.8 ??C (98.2 ??F)] Heart Rate: [67-72] Resp: [16-18] BP: (118-129)/(66-74) SpO2: -- Heart Rate from SPO2: -- Nonstress test: Documented elsewhere Abdomen: gravid, soft, nontender Ext: no edema Impression: 33 4/7 weeks with arrested premature labor and advanced cervical dilation. There is no evidence currently for infection, abruption and labor. The testing has been reassuring. Prior . She had elected not to take 17 hydroxyprogesterone caproate. Cognitive disability. Has ability to sign for herself. DCF is involved in potential for taking custody of the child or providing supervision. Depression Plan: Continue hospitalization for and maternal safety and ongoing assessment regarding need for delivery. Nonstress test Consultation with social service [facility] Iona Ellison MD * So Prajapati RN - 2018 2:28 PM EST During purposeful rounding pt reported suprapubic pain when she got up to take a bath. Resolved now. Abdomen palpates soft. MD Cardona notified. Pt instructed to notify RN if pain returns. * Stefani West MD - 2018 12:37 PM EST Antepartum NST Note NST Fetus A 2018 HR (Beats/Min) 145 HR Variability moderate (amplitude range 6 to 25 bpm) HR Accelerations present;lasting at least 15 seconds;greater than/equal to 15 bpm HR Decelerations none Contraction Frequency (Minutes) uterine irritability Nonstress Test Interpretation Reactive, >32 weeks: two 15 bpm accelerations lasting 15 seconds Overall Impression Reassuring for gestational age Interpretation: Reactive, overall reassuring for gestational age. STEFANI WEST MD PGY-4 2018 Associated attestation - Shirley Benson MD - 2018 4:12 PM EST I have reviewed the strip and agree with interpretation. * Stefani West MD - 2018 9:45 AM EST Obstetrical Antepartum Progress Note Harley Friedman is a 23 y.o. female with an CHRISTIANO of 06/13/2018, Date entered prior to episodecreation who is at 33w3d gestation, admitted with labor vs. advanced cervical dilation. This is HD#4. Active Problems: Active Hospital Problems Diagnosis ??? Premature cervical dilation in third trimester ??? labor ??? Major depressive disorder, recurrent episode, moderate (DEPRESSION) ??? ADHD (attention deficit hyperactivity disorder), combined type Resolved Hospital Problems No resolved problems to display. 24 Hour Events - No acute events Subjective: Harley feels well. She denies any cramps, contractions, vaginal bleeding, or LOF. She reports good movement. It [birth year] birthday today, wishes she did not have to be here, but understands. Review of Systems Obstetric Review of Systems Total Weight Gain this Not found. Movement: normal Contractions: none Leaking: None Bleeding; none now Preeclampsia signs and symptoms: None Physical Exam Most Recent Vitals: 04/28/18 0841 BP: Pulse: Resp: 16 Temp: 36.5 ??C (97.7 ??F) SpO2: 99% General: Patient sitting comfortably in bed during our conversation, in no apparent distress CV: Regular rate and rhythm, normal S1 and S2, no murmurs, rubs, or gallops Pulm: Lungs clear to auscultation bilaterally, no wheezes, rales, or rhonchi Abd: Soft, non-tender, non-distended, gravid Extremities: Warm, well perfused, no peripheral edema, non-tender Uterus: non-tender Cervix Exam: Not reexamined today, last exam below Dilation: 6 (04/25/18 1915) Effacement: 50 Station: -3 Cervical Position: Mid-Position Consistency: Soft Whyte Score: 7 OB Examiner: MD Angel Heart Rate Interpretation: see daily NST note Most Recent Ultrasound Date: 04/26/18 Presentation: cephalic Placenta: anterior KARTIK wnl, 17.21 EFW 1834, 37% Prominent right umbilical vein again visualized GBS: Pending @ OSH Assessment & Plan: 23 y.o. female with an 06/13/2018, Date entered prior to episode creation who is at 33w3d weeks gestational age, HD#4 hospitalized for labor vs. advanced cervical dilation. 1. Stalled labor vs. advanced cervical dilation: No further contractions since hospital day#1. Small amount of vaginal bleeding that day with concern for small abruption, but no ongoing bleeding. Due to early gestational age, will likely remain hospitalized until either delivery or 34-35 weeks gestation. -Labs: CBC, T&S, UA on admission -Delivery indications: progressive labor and non-reassuring status -Tocolysis: none due to bleeding upon admission and concern for small abruption - Penicillin for GBS unknown bolus given on admission, now discontinued - Will likely remain hospitalized until 34-35 weeks if still ?? 2. Status - Continuous EFM on admission reassuring; Daily NST - Last Growth US: 04/26/18 - Presentation: cephalic by 04/26 US - Delivery Plan: - Steroid status: Complete 04/26 - Magnesium for neuroprotection: Not indicated - Consults obtained: Neonatology, Anesthesiology ?? 3. care - GBS status: GBS Pending at OSH - 1hr GTT: Not available in OSH records -- will obtain further records today - TDaP: not documented - will obtain records - Contraception Plan: Nexplanon - Consents obtained: none 4. Depression - Prozac continued Patient seen on multidisciplinary rounds, Signed: STEFANI WEST MD PGY4 2018 Associated attestation - Iona Ellison MD - 2018 10:39 AM EST MFM attending note I saw and evaluated the patient with the team on multidisciplinary rounds. I agree with the findings and the plan of care as documented in the residents' note. The patient reports feeling well. She denies contractions, leaking of fluid or bleeding. She reports good activity. My physical exam confirms and/or revises the resident's exam. Temp: [36.5 ??C (97.7 ??F)-36.7 ??C (98.1 ??F)] Heart Rate: [56-80] Resp: [16-17] BP: (116-127)/(61-80) SpO2: [98 %-99 %] Heart Rate from SPO2: [79 bpm] Nonstress test: Documented elsewhere Abdomen: gravid, soft, nontender Ext: no edema Impression: 33 37 weeks with arrested premature labor and advanced cervical dilation in the settingof prior . Reassuring testing to date Cognitive disability and socioeconomic stressors. DCF is involved. Depression, ADD Plan: Continue hospitalization for and maternal safety and ongoing assessment regarding need for delivery. Nonstress test Will not tocolyse further Iona Ellison MD * Betty Hernandez - 04/27/2018 10:40 AM EST NST Progress Note: NST Fetus A 04/27/2018 HR (Beats/Min) 140 HR Variability moderate (amplitude range 6 to 25 bpm) HR Accelerations periodic;greater than/equal to 15 bpm;lasting at least 15 seconds HR Decelerations none Contraction Frequency (Minutes) None Nonstress Test Interpretation Reactive, >32 weeks: two 15 bpm accelerations lasting 15 seconds Overall Impression Reassuring for gestational age BETTY HERNANDEZ MD PGY4 04/27/18 Associated attestation - Serena Tipton MD - 04/27/2018 1:27 PM EST I personally reviewed this NST and agree with the resident's documented interpretation. Serena Tipton MD * Betty Hernandez - 04/27/2018 10:33 AM EST Obstetrical Antepartum Progress Note Harley Friedman is a 22 y.o. female with an CHRISTIANO of 06/13/2018, Date entered prior to episodecreation who is at 33w2d gestation, admitted with labor vs. advanced cervical dilation. This is HD#3. Active Problems: Active Hospital Problems Diagnosis ??? labor Resolved Hospital Problems No resolved problems to display. 24 Hour Events - Beta complete - Patient notified by DCYF that she will not have custody of this child Subjective: Harley had a difficult night as she was told by DCYF she would not have custody of her child after delivery. Otherwise, she is feeling physically well. Denies cramping or brayden, loss of fluid, or decreased movement. She had a small amount of brown spotting yesterday, but no bright red blood. Review of Systems Obstetric Review of Systems Total Weight Gain this Not found. Movement: normal Contractions: none Leaking: None Bleeding; none now Preeclampsia signs and symptoms: None Physical Exam Uterus: non-tender Cervix Exam: Dilation: 6 (04/25/181914) Effacement: 50 Station: -3 Cervical Position: Mid-Position Consistency: Soft Whyte Score: 7 OB Examiner: MD Angel Heart Rate Interpretation: see daily NST note Most Recent Ultrasound Date: 04/26/18 Presentation: cephalic Placenta: anterior KARTIK wnl, 17.21 EFW 1834, 37% Prominent right umbilical vein again visualized GBS: Pending @ OSH Assessment & Plan: 22 y.o. female with an 06/13/2018, Date entered prior to episode creation who is at 33w2d weeks gestational age, HD#3 hospitalized for labor vs. advanced cervical dilation. 1. labor vs. advanced cervical dilation -Labs: CBC, T&S, UA on admission -Delivery indications: progressive labor and non-reassuring status -Tocolysis: none due to bleeding upon admission and concern for small abruption - Penicillin for GBS unknown bolus given on admission, now discontinued - Will likely remain hospitalized until 34-35 weeks if still ?? 2. Status - Continuous EFM on admission reassuring; Daily NST - Last Growth US: 04/26/18 - Presentation: cephalic BSUS - Delivery Plan: - Steroid status: Will be complete 04/26 - Magnesium for neuroprotection: Not indicated - Consults obtained: Neonatology, Anesthesiology ?? 3. care - GBS status: GBS Pending at OSH - 1hr GTT: Not available in OSH records -- will obtain further records today - TDaP: not documented - will obtain records - Contraception Plan: Nexplanon - Consents obtained: none 4. Depression - Prozac continued Note written in conjunction with Dr. Espana, PGY3 Signed: BETTY HERNANDEZ MD PGY4 04/27/2018 Associated attestation - Edvin Baldwin MD - 04/27/2018 11:09 AM EST I performed a history and physical exam of the patient and discussed her management with Dr. Hernandez.I reviewed Dr. Hernandez's note and agree with the documented findings and plan of care. My evaluation is as below: 33w2d EGA; arrested labor Subjective: No complaints. Good movement. No contractions. Vitals: Last value Range last 8 hrs Temperature Temp: 36.9 ??C (98.4 ??F) Temp: [36.9 ??C (98.4 ??F)] Heart Rate Heart Rate: 87 Heart Rate: [87] Blood Pressure BP: 121/61 BP: (121)/(61) Respiratory Rate Resp: 18 Resp: [18] SpO2 SpO2: 97 % SpO2: -- Abdomen: Soft, non-tender, not distended Uterus: Soft, Non-tender Extremities: Non-tender; no edema NST: See separate report. Impression: PTL at 33w2d. Steroid complete GBS pending Presentation cephalic Plan: Continue expectant management with close observation for recurrent labor. Due to advanced cervical dilation, inpatient management is necessary for both maternal and safety. Cameron Baldwin MD Maternal- Medicine * Iona Lewis RN - 04/26/2018 5:44 PM EST Assumed care at 1600 today. VSS. SW in to see patient. Patient out of bed to bathroom independently. Will continue to monitor. * Homa Espana MD - 04/26/2018 4:54 PM EST NST Progress Note NST Fetus A 04/26/2018 HR (Beats/Min) 135 HR Variability moderate (amplitude range 6 to 25 bpm) HR Accelerations lasting at least 15 seconds;greater than/equal to 15 bpm HR Decelerations none Contraction Frequency (Minutes) none Nonstress Test Interpretation Reactive, >32 weeks: two 15 bpm accelerations lasting 15 seconds Overall Impression Reassuring for gestational age Homa Espana MD PGY3 04/26/2018 Associated attestation - Serena Tipton MD - 04/26/2018 5:06 PM EST I personally reviewed this NST and agree with the resident's documented interpretation. Serena Tipton MD * Homa Espana MD - 04/26/2018 6:23 AM EST Obstetrical Antepartum Progress Note Harley Friedman is a 22 y.o. female with an CHRISTIANO of 06/13/2018, Date entered prior to episodecreation who is at 33w1d gestation, admitted with labor vs. Advanced cervical dilation. This is HD#2. Active Problems: Active Hospital Problems Diagnosis ??? labor Resolved Hospital Problems No resolved problems to display. 24 Hour Events - Beta #2 given Subjective: Harley is very upset this afternoon - she just found out that she will not be allowed to have custody of this child following delivery. She is appropriately tearful and angry. She endorses some vaginal wetness but denies large gush of fluid, bleeding or contractions. +FM Review of Systems Obstetric Review of Systems Total Weight Gain this Not found. Movement: normal Contractions: none Leaking: None Bleeding; none now Preeclampsia signs and symptoms: None Physical Exam Uterus: non-tender Cervix Exam: Dilation: 6 (04/25/18 191) Effacement: 50 Station: -3 Cervical Position: Mid-Position Consistency: Soft Whyte Score: 7 OB Examiner: MD Angel Heart Rate Interpretation: see daily NST note Most Recent Ultrasound Date: 01/12/18 -- morphology US GA at US: 18w2d Persistent right umbilical vein visualized. ??Unilateral ??choroid plexus cyst visualized GBS Pending @ OSH Assessment & Plan: 22 y.o. female with an 06/13/2018, Date entered prior to episode creation who is at 33w1d weeks gestational age, HD#2 hospitalized for labor vs. Advanced cervical dilation. 1. labor vs. Advanced cervical dilation -Labs: CBC, T&S, UA on admission -Delivery indications:progressive labor and non-reassuring status -Tocolysis: Nifedipine - Penicillin for GBS unknown bolus given on admission, now discontinued ?? 2. Status - Continuous EFM on admission reassuring; Daily NST - Last Growth US: morphology US - will obtain US today since undelivered -- ordered - Presentation: cephalic BSUS - Delivery Plan: - Steroid status: Will be complete 04/26 - Magnesium for neuroprotection: Not indicated - Consults obtained: Neonatology, Anesthesiology ?? 3. care - GBS status: GBS Pending at OSH - 1hr GTT: Not available in OSH records -- will obtain further records today - TDaP: not documented - will obtain records - Contraception Plan: Nexplanon - Consents obtained: none 4. Depression - Prozac continued Signed: Homa Espana MD 04/26/2018 * Evie Silvestre MD - 04/26/2018 12:05 AM EST 04/26/18 0005 Nonstress Test, Fetus A HR (Beats/Min) 135 HR Variability moderate (amplitude range 6 to 25 bpm) HR Accelerations lasts at least 10 seconds (32 wks gest or less);present HR Decelerations none Contraction Frequency (Minutes) q 2-5 min Nonstress Test Interpretation Reactive, >32 weeks: two 15 bpm accelerations lasting 15 seconds Overall Impression Reassuring for gestational age NST Times NST Start Time 1625 NST Stop Time 1740 I personally have reviewed the heart rate tracing. The NST is reactive and the tracing is reassuring. EVIE SILVESTRE MD * Raleigh De Leon RN - 04/25/2018 5:16 PM EST 22 yo presented via ambulance @ 1625 transfer from [facility] patient has existing iv 20 guage in right hand, infusing Lactated rRingers and Magnesium Sulfate via infusion pump at 1 gram per hour. Transferred to labor bed under own power, monitors on plan of care discussed Dr Hernandez notified at bedside documented in this encounter H&P Notes * Homa Espana MD - 04/25/2018 6:09 PM EST Obstetrical Admission Note Referring Hospital: [facility] Referring Provider: So Webster MD Initial Care Provider (if early referral or co-managed by [facility]): [facility] Chief Complaint: Harley Friedman was admitted today secondary to labor. Harley Friedman is a 22 y.o. at 33w0d weeks gestation. She presented to her routine appointment and was found to be 6/100/0. She was found to be brayden about every 10 minutes. Multiple exams documented and unclear about status of ROM - clear fluid and intact membranes both documented. Her cervical exam was stable over hours so she was transported to [facility] for further management. Betamethasone administered and MgSO4 bolus given. On presentation to [facility], she complains of painful kicks but otherwise is without complaint. 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 Obstetric Review of Systems Total Weight Gain this Not found. Movement: normal Contractions: none Leaking: None Bleeding; none now Preeclampsia signs and symptoms: None Active Hospital Problems Diagnosis ??? labor Resolved Hospital Problems No resolved problems to display. Active Non-Hospital Problems Diagnosis ??? premature rupture of membranes (PPROM) with unknown onset of labor ??? Contraception ??? PDA: patient was delivered at 26wks gestation ??? Major depressive disorder, recurrent episode, moderate (DEPRESSION) ??? YORK (headache) ??? ADHD (attention deficit hyperactivity disorder), combined type Past Medical History: Diagnosis Date ??? ADHD (attention deficit hyperactivity disorder) ??? Major depression ??? Premature Born 4 months early Past Surgical History: Procedure Laterality Date ??? PATENT DUCTUS ARTERIOUS LIGATION ??? TONSILLECTOMY AND ADENOIDECTOMY OB History Para Term AB Living 2 1 1 1 SAB TAB Ectopic Multiple Live Births 0 1 # Outc Date GA Lbr Clif/2nd Wgt Sex Del Anes PTL Lv 1 07/2016 34w2d 05:37 / 01:10 2.5 kg (5 lb 8.2 oz) F Vag-Spont EPI Y Living 2 Current Medications Prior to Admission Medication Sig Dispense Refill Last Dose ??? FLUoxetine (PROZAC) 20 mg Capsule take 1 capsule by mouth once daily 0 04/24/2018 at 2000 ??? acetaminophen (TYLENOL) 325 mg Tablet Take 2 tablets by mouth every 4 hours as needed for Pain.30 tablet 1 Past Week at Unknown time ??? ibuprofen (ADVIL;MOTRIN) 600 mg Tablet Take 1 tablet by mouth every 6 hours as needed for Pain.(Patient not taking: Reported on 04/25/2018) 30 tablet 12 Not Taking at Unknown time ??? vitamin with ayzblilp-Go-Qjkg-FA ( VITAMIN) Tablet Daily Taking at Unknown time No Known Allergies No family history on file. Social History Occupational History ??? Not on file Tobacco Use ??? Smoking status: Former Smoker Packs/day: 0.25 Types: Cigarettes Last attempt to quit: 07/20/2016 Years since quittin.7 ??? Smokeless tobacco: Never Used Substance and Sexual Activity ??? Alcohol use: No ??? Drug use: No ??? Sexual activity: Yes Partners: Male Immunization History Immunization History Administered Date(s) Administered ??? Influenza PF, Split 07/22/2016 Last Set of Vitals: Temp 36.1 ??C (97 ??F) Resp 18 Ht 160 cm (5' 3) Wt 77.8 kg (171 lb 9.6 oz) BMI 30.40 kg/m?? Physical Exam: Gen: AAO, NAD Cardio: nl rhythm, S1, S2, no M/C/R/G Pulm: CTA BL, no W/C/R Abd: +BS, soft, NT, ND, gravid Ext: warm, well-perfused, no MIGDALIA or calf tenderness Neuro: grossly intact Uterine Size: S=D Clinical EFW: 4.5 lbs by leopolds Sterile Speculum: fluid appearing bloody, Nitrizine test is negative, Ferning test is negative Dried blood seen on thighs bilaterally Cervix Exam: Dilation: 6 (04/25/18 1915) Effacement: 50 Station: -3 Cervical Position: Mid-Position Consistency: Soft Whyte Score: 7 OB Examiner: MD Angel Pelvis: average Presentations: Cephalic by BSUS Heart Rate Interpretation: Baseline: 135, Variability: moderate, Accels: yes, Decels: none, Bent: CTX Q 2-5 min Category: I Record Review Labs Lab Results Component Value Date ABORH O Pos 07/19/2016 HCT 34.3 (L) 07/19/2016 HGB 11.6 (L) 07/19/2016 MCV 89.8 07/19/2016 RUBLIGG Positive 07/19/2016 GCAMP Negative 07/19/2016 CHLMGENE Negative 07/19/2016 Lab Results Component Value Date GBSSCREEN Pos 07/19/2016 Most Recent Ultrasound Date: 01/12/18 -- morphology US GA at US: 18w2d Persistent right umbilical vein visualized. Unilateral choroid plexus cyst visualized Assessment & Plan Harley Friedman is a 22 y.o. at 33w0d gestation being admitted for labor. 1. labor -Labs: CBC, T&S, UA -Delivery indications:progressive labor and non-reassuring status -Tocolysis: Nifedipine - Penicillin for GBS unknown due to concern for labor vs. Advanced cervical dilation -- no cervical global director air and climate change several hours but contractions seen on monitoring 2. Status - Continuous EFM on admission; Daily NST - Last Growth US: morphology US - will obtain US tomorrow if undelivered - Presentation: cephalic BSUS - Delivery Plan: - Steroid status: Will be complete 04/26 - Magnesium for neuroprotection: Not indicated - Consults obtained: Neonatology, Anesthesiology 3. care - GBS status: GBS Pending at OSH - 1hr GTT: Not available in OSH records -- will obtain further records tomorrow - TDaP: not documented - will obtain records - Contraception Plan: Nexplanon - Consents obtained: none 4. Depression - Prozac continued This patient was seen and discussed with Dr. Silvestre, Attending [employer] ATTENDANT. Homa Espana MD 04/25/2018 Associated attestation - Evie Silvestre MD - 04/26/2018 12:02 AM EST 22 year old at 33w0d presents due to advanced cervical dilation noted at office visit. Patient was evaluated by her regular supervisor cutting and boning and noted to have some contractions. Given this and her advanced cervical dilation, she received betamethasone and was transported to . Her POBHx is notable for a prior delivery at 34 weeks in July of 2016. PMHX notable fordepression, ADHD and cognitive delay. PSHx included repair of a PDA. Patient herself was born prematurely. Patient's exam today demonstrated some thin blood in the vault which required four large swabs to remove and did not reaccumulate. Ferning was not seen and the head was ballotable on exam. Thus, we determined that the patient did not have ruptured membranes. On our exam the cervix was not 100% effaced but perhaps this was due to a decreased amount of pressure on the cervix at the time of our evaluation. Patient does have advanced cervical dilation and a history of a previous . However, she does not have regular painful contractions. She has a small amount of thin blood which could represent a marginal abruption. testing is reassuring. Agree with plan for completion of betamethasone course and observation to determine if labor progress. Given lack of painful contractions and presence of bleeding, we did NOT pursue tocolysis. Agree with plan for formal US on 04/26/18 am if patient remains undelivered. Agree with neonatology and anesthesia consultations and will notify these teams. EVIE SILVESTRE MD documented in this encounter Miscellaneous Notes * Plan of Care - Ingris Saleem RN - 05/08/2018 2:08 PM EST Problem: (Vaginal Delivery) (Adult) Goal: Signs and Symptoms of Listed Potential Problems Will be Absent, Minimized or Managed () Signs and symptoms of listed potential problems will be absent, minimized or managed by discharge/transition of care (reference (Vaginal Delivery) (Adult) CPG). Outcome: Outcome (s) achieved Date Met: 05/08/18 05/08/18 1402 (Vaginal Delivery) Problems Assessed ( Vaginal Delivery) all Problems Present ( Vaginal Delivery) none OUTCOME EVALUATION NOTE: OUTCOME SUMMARY: G2 now P2. 05/06. Babe in ICN for dates. V/s and status monitored. Stable. Pain assessed routinely, pain meds declined. Over to see independently. DCYF involved and currently incustody of infant. Pt verbalized awareness of DCYF involvement but states that she remains hopeful t hat will remain in her care upon discharge. Discharge orders received and local overnight options discussed with pt. Pt has chosen to return to home rather than to ronni's house today. Friendspresent at bedside this afternoon to provide a ride for pt. AVS reviewed with pt, importance of attending follow up appointments, rest, self care, and symptoms of depression discussed in detal. Pt verbalized understanding. PLAN MOVING FORWARD: Pt discharged to home with friends. INDIVIDUALIZED FALL PREVENTION INTERVENTIONS: Patient-specific fall risk factors per assessment: [current deficits]: none Assistance [level of assistance required for transfers and ambulation]: independent Supervision [direct monitoring required during toileting and ADLs]: independent Surveillance [continuous indirect monitoring]: Purposeful rounding Patient-specific fall prevention interventions for sensory deficits provided, if applicable: [X] N/A CPG GOAL OUTCOME EVALUATION: Met this shift. Discharged to home. * Plan of Care - Madelin Camp RN - 05/08/2018 3:44 AM EST Problem: Patient Care Overview Goal: Plan of Care Review Outcome: Ongoing (Interventions Implemented as Appropriate) 05/06/18 18305/07/182108 Plan of Care Review Progress progress toward functional goals as expected -- Coping/Psychosocial Plan Of Care Reviewed With -- patient OUTCOME EVALUATION NOTE: OUTCOME SUMMARY: Pt recovering well from . Visiting in N. PLAN MOVING FORWARD: Continue to educate and support INDIVIDUALIZED FALL PREVENTION INTERVENTIONS: Patient-specific fall risk factors per assessment: [current deficits]: No deficit Assistance [level of assistance required for transfers and ambulation]: independent Supervision [direct monitoring required during toileting and ADLs]: Pt able to reliably call for assistance Surveillance [continuous indirect monitoring]: Purposeful rounding Goal: Individualization & Mutuality Outcome: Ongoing (Interventions Implemented as Appropriate) 05/01/18 1324 Mutuality/Individual Preferences What Anxieties, Fears or Concerns Do You Have About Your Health or Care? Baby going to [facility] Goal: Fall Prevention-Safe Patient Handling Outcome: Ongoing (Interventions Implemented as Appropriate) 05/04/18 1934 05/07/182108 Daily Care Interventions Self-Care Promotion -- independence encouraged Brown Fall Risk History of Falling -- 0 Secondary Diagnosis -- 15 Ambulatory Aids -- 0 Intravenous Therapy/Heparin/Saline Lock -- 0 Gait/Transferring -- 0 Mental Status -- 0 Score -- 15 OTHER Brown Fall Risk -- Low Restraint Interventions Safety Promotion/Fall Prevention -- safety round/check completed Positioning Body Position -- independent Activity Activity Type -- up ad corrina Activity Assistance Provided -- independent Assistive Device Utilized none -- Goal: Infection Control Outcome: Ongoing (Interventions Implemented as Appropriate) 05/07/182108 Safety Interventions Isolation Precautions standard precautions maintained Infection Prevention single patient room provided;rest/sleep promoted;personal protective equipmentutilized;equipment surfaces disinfected;environmental surveillance performed Coping Strategies Supportive Measures active listening utilized;counseling provided;decision- making supported;goal setting facilitated;positive reinforcement provided;problem solving facilitated;relaxation techniques promoted;self-care encouraged;self-reflection promoted;self-responsibility promoted;verbalization offeelings encouraged Goal: Discharge Needs Assessment Outcome: Ongoing (Interventions Implemented as Appropriate) 04/28/18 0632 Discharge Needs Assessment Concerns To Be Addressed cognitive/perceptual concerns;other (see comments) (DEYF involvement) Readmission Within The Last 30 Days no previous admission in last 30 days Equipment Needed After Discharge none Discharge Disposition still a patient Current Health Anticipated Changes Related to Illness none Activity/Self Care Review of Systems Equipment Currently Used at Home none Living Environment Transportation Available family or friend will provide Goal: Interdisciplinary Rounds/Family Conf Outcome: Ongoing (Interventions Implemented as Appropriate) 05/05/18 0634 Interdisciplinary Rounds/Family Conf Participants nursing;patient;case supervisor;physician Problem: (Vaginal Delivery) (Adult) Goal: Signs and Symptoms of Listed Potential Problems Will be Absent, Minimized or Managed () Signs and symptoms of listed potential problems will be absent, minimized or managed by discharge/transition of care (reference (Vaginal Delivery) (Adult) CPG). Outcome: Ongoing (Interventions Implemented as Appropriate) 05/07/182108 (Vaginal Delivery) Problems Assessed ( Vaginal Delivery) all Problems Present ( Vaginal Delivery) none * Note - Jennifer Albert RN - 05/07/2018 1:52 PM EST This note was copied from a baby's chart. Consultation Encounter Date/Time: 05/07/2018 / 13:15 Baby's name: Baby seun Friedman : 05/06/2017 Time of : 2:41 PM Mode of Delivery: Vaginal, Spontaneous Delivery Gestational Age: Gestational Age: 34w4d Baby age: 23 hours old Birthweight: 4 lb 11.8 oz (2150 g) Weights since : Patient Vitals for the past 168 hrs: Weight 05/07/18 0230 (!) 2.09 kg (4 lb 9.7 oz) 05/06/18 1458 (!) 2.15 kg (4 lb 11.8 oz) 05/06/18 1441 (!) 2.15 kg (4 lb 11.8 oz) Overall weight loss: -3% S/O Met with mother Harley [facility]. She reports she is planning to pump her colostrum for her son but doesn't plan on breast feeding him at this time. Her plan isto bottle feed him formula. Reviewed frequency of pumping and Harley reports she knows how often topump and how wash her pump parts. She reports she is not having any discomfort with pumping Her momalso present. Inquired if she had any questions about frequency of pumping or cleaning of pump parts but she did not. A Mom reports she is planning to bottle feed but willing to pump her colostrum for her baby. P RECOMMENDATIONS: Pump at least 8 times per 24 hours and record in pumping log provided Breast massage and hand expression before and during pumping Brief heat prior to pumping and ice packs after pumping X 48 hours [place] oil to nipples prior to pumping Frequent and prolonged maternal- skin to skin contact Close support and follow up 15 minutes were spent with this family Jennifer Albert RN, IBCLC [facility] Services * Plan of Care - Madelin Camp RN - 05/07/2018 7:03 AM EST Problem: Patient Care Overview Goal: Plan of Care Review Outcome: Ongoing (Interventions Implemented as Appropriate) 05/06/18 1835 05/06/182048 Plan of Care Review Progress progress toward functional goals as expected -- Coping/Psychosocial Plan Of Care Reviewed With -- patient;mother OUTCOME EVALUATION NOTE: OUTCOME SUMMARY: Pt recovering well from . Visiting in ICN. Began breast pumping this am. PLAN MOVING FORWARD: Continue to educate and support INDIVIDUALIZED FALL PREVENTION INTERVENTIONS: Patient-specific fall risk factors per assessment: [current deficits]: No deficit Assistance [level of assistance required for transfers and ambulation]: independent Supervision [direct monitoring required during toileting and ADLs]: Pt able to reliably call for assistance Surveillance [continuous indirect monitoring]: Purposeful rounding Goal: Individualization & Mutuality Outcome: Ongoing (Interventions Implemented as Appropriate) 05/01/18 1324 05/05/18 1753 Individualization Patient Specific Preferences -- keep my baby inside Patient Specific Goals -- stay Patient Specific Interventions -- monitor for contractions, NST, support and education Mutuality/Individual Preferences What Anxieties, Fears or Concerns Do You Have About Your Health or Care? [facility] -- Goal: Fall Prevention-Safe Patient Handling Outcome: Ongoing (Interventions Implemented as Appropriate) 05/04/18 19305/06/182048 Daily Care Interventions Self-Care Promotion -- independence encouraged Brown Fall Risk History of Falling -- 0 Secondary Diagnosis -- 15 Ambulatory Aids -- 0 Intravenous Therapy/Heparin/Saline Lock -- 20 Gait/Transferring -- 0 Mental Status -- 0 Score -- 35 OTHER Brown Fall Risk -- Med Restraint Interventions Safety Promotion/Fall Prevention -- safety round/check completed Positioning Body Position -- independent Activity Activity Type -- up ad corrina Activity Assistance Provided -- independent Assistive Device Utilized none -- Goal: Infection Control Outcome: Ongoing (Interventions Implemented as Appropriate) 05/06/182048 Safety Interventions Isolation Precautions standard precautions maintained Infection Prevention rest/sleep promoted;personal protective equipment utilized;equipment surfaces disinfected;environmental surveillance performed;single patient room provided Coping Strategies Supportive Measures active listening utilized;counseling provided;decision- making supported;goal setting facilitated;positive reinforcement provided;problem solving facilitated;relaxation techniques promoted;self-care encouraged;self-reflection promoted;self-responsibility promoted;verbalization offeelings encouraged Goal: Discharge Needs Assessment Outcome: Ongoing (Interventions Implemented as Appropriate) 04/28/18 0632 Discharge Needs Assessment Concerns To Be Addressed cognitive/perceptual concerns;other (see comments) ([facility] involvement) Readmission Within The Last 30 Days no previous admission in last 30 days Equipment Needed After Discharge none Discharge Disposition still a patient Current Health Anticipated Changes Related to Illness none Activity/Self Care Review of Systems Equipment Currently Used at Home none Living Environment Transportation Available family or friend will provide Goal: Interdisciplinary Rounds/Family Conf Outcome: Ongoing (Interventions Implemented as Appropriate) 05/05/18 0634 Interdisciplinary Rounds/Family Conf Participants nursing;patient;case supervisor;physician Problem: (Vaginal Delivery) (Adult) Goal: Signs and Symptoms of Listed Potential Problems Will be Absent, Minimized or Managed () Signs and symptoms of listed potential problems will be absent, minimized or managed by discharge/transition of care (reference (Vaginal Delivery) (Adult) CPG). 05/06/182048 (Vaginal Delivery) Problems Assessed ( Vaginal Delivery) all Problems Present ( Vaginal Delivery) situational response * Plan of Care - Emily Garcia RN - 05/06/2018 6:43 PM EST Problem: Patient Care Overview Goal: Plan of Care Review Outcome: Ongoing (Interventions Implemented as Appropriate) 05/06/181834 Plan of Care Review Progress progress toward functional goals as expected Coping/Psychosocial Plan Of Care Reviewed With patient;step-parent(s) OUTCOME EVALUATION NOTE: OUTCOME SUMMARY: Pt is meeting all 4 hr PPgoals after @ 1441 today., VSS, bleeding WDL,FF @ U/ 2 ambulating, pt has thus far voided 100 cc, she had Cardona removed immediately before delivery, she has vomited twice(see note) and currently has a bolus of LR infusing for hydration. Her perineum is intact. She has not decided on whether to breast feed for in ICN. She has stated her concern about [facility] involvement. PLAN MOVING FORWARD: Continue monitoring per PP CPG, SW consult for this week, support for in ICN INDIVIDUALIZED FALL PREVENTION INTERVENTIONS: Patient-specific fall risk factors per assessment: [current deficits]:none Assistance [level of assistance required for transfers and ambulation]: independent Supervision [direct monitoring required during toileting and ADLs]: Pt able to reliably call for assistance Surveillance [continuous indirect monitoring]: Purposeful rounding Patient-specific fall prevention interventions for sensory deficits provided, if applicable: [X] No CPG GOAL OUTCOME EVALUATION: * L&D Delivery Note - Cornell Cardona MD - 05/06/2018 3:00 PM EST Delivery Note Harley Friedman is a 23 y.o. woman who was admitted for labor at 33w0d and kept inpatient given advanced cervical dilation. She was made betamethasone complete and denied further contractions. On HD#12, she PPROM'd for clear fluid and progressed in labor. Her was complicated by maternal intellectual disability, depression and ADHD. She used an epidural for analgesia. Her labor progress was appropriate. She was found to be complete at 1438 with the presenting part at +3 station. She pushed for three minutes and spontaneously delivered at 1441 hrs. The infant's head was delivered in a controlled fashion in the left occiput anterior position. There was no nuchal cord. The shoulders and body then followed easily with maternal pushing efforts. A vigorous, live-born male infant was placed on mom's abdomen and had APGARS of 6 and 8 at 1 and 5 minutes and had a weight of 2150 g. initially had strong cry/adequate tone and was transferred to the bedside warmer for further evaluation by the ICNteam following 1 minute of delayed cord clamping. Cord blood was taken and cord gases were obtained. The fundus became firm with massage and pitocin. The placenta delivered spontaneously after 5 minutes and it was a 3-vessel cord with an eccentric cord insertion into the placenta.Vagina and perineum were noted to be intact. No complications. Blood loss estimated at 300 ccs. She was in stable condition after delivery. The infant was able to be skin to skin with mom for 5 minutes and then was taken to the ICN for further monitoring. Dr. Antunez was present for the entire delivery without conflicting clinical responsibilities. Cornell Cardona MD PGY2 05/06/2018 Information for the patient's : Bailey, Baby boy [[id number]] DELIVERY SUMMARY FOR Baby seun Friedman (please note there is a separate summary for each fetus) 05/06/2018 2:41 PM by Vaginal, Spontaneous Delivery Sex: male Gestational Age: 34w4d Labor Events labor?: Yes GBS colonized: negative steroids: Full Course Rupture date/time: 05/06/2018 1015 Rupture type: leaking Fluid color: clear Labor onset type: spontaneous onset of labor Labor onset date/time: 05/06/2018 1125 Labor Event Times Labor onset date/time: 05/06/2018 1125 Dilation complete date/time: 05/06/2018 1438 Start pushing date/time: 05/06/2018 1438 Mother Delivery Episiotomy: None Vaginal delivery est. blood loss (mL): 300 Surgical or additional est. blood loss (mL): 0 Combined est. blood loss (mL): 300 Repair suture: None Delivery () Delivery Date: 05/06/18 Delivery Date: 2:41:00 PM Sex: Male Presentation: Vertex Position: Left Occiput Anterior Attempted ?: No Delivery Type: Vaginal Delivery Type (Specific): Vaginal, Spontaneous Delivery Pre Vaginal Count?: Yes Post Vaginal Count?: Yes Count Correct?: Yes Room Searched?: No XRay Taken?: No Shoulder Dystocia Shoulder dystocia present?: No Delivery Information Delivery Location: delivery room Delivering Clinician: Cornell Cardona MD ICN Staff Present: Yes Other Personnel: Provider Role Emily Garcia, recruitment intern Nurse Larry Antunez MD Energy Sales [employer]ker Vivian Chowdhury RN Delivery Assist Anesthesia Method: Epidural Cord Vessels: 3 Vessels Complications: None Cord Blood Disposition: Lab Gases Sent?: Yes Cord Insertion: eccentric Assessment & APGARS Living status: Living Apgars 1 Minute: 5 Minute: 10 Minute 15 Minute 20 Minute Skin Color: 1 1 Heart Rate: 2 2 Reflex Irritability: 1 1 Muscle Tone: 1 2 Respiratory Effort: 1 2 Total: 6 8 Apgars Assigned By: NAHOMY VALENTINE PA-C Resuscitation Method: Suctioning Suctioning Method: Bulb syringe Resuscitation Comment: Pre-term male infant, brought to radiant warmer at 45 seconds of life with poor tone, color and respiratory effort, cried spontaneously after being dried, stimualted and bulb suctioned, tone and color improved, respiratory effort still hypoventilatory with some subcostal retra ctions noted, CPAP 5 started at 21%, O2 saturations remained in the 70's and FiO2 increased to 100%but quickly able to titrate down to 21%, transitioned to RA , transferred to ICN Maternal [place] Feeding and Skin to Skin Skin to skin initiated date/time: 05/06/2018 1500 Skin to skin with: Mother [place] Medications No data filed Measurements No data filed Placenta Date and Time: 05/06/2018 2:46:04 PM Removal: Spontaneous Appearance: Intact Labor Length No data filed Associated attestation - Larry Antunez MD - 05/06/2018 5:19 PM EST I supervised the delivery described above. I was present and I participated during the entire delivery (does not to include opening and closing) and there were no overlapping cases. LARRY ANTUNEZ MD * Plan of Care - Madelin Camp RN - 05/06/2018 5:50 AM EST Problem: Patient Care Overview Goal: Plan of Care Review Outcome: Ongoing (Interventions Implemented as Appropriate) 05/05/18175205/05/18 2300 Plan of Care Review Progress progress toward functional goals as expected -- Coping/Psychosocial Plan Of Care Reviewed With -- patient OUTCOME EVALUATION NOTE: OUTCOME SUMMARY: Pt denies contractions, loss of fluid, bleeding. Pt endorses movement. Pt discussed concern regarding [facility] taking this baby as she recently lost custody of her daughter. Pt states that she hopes she is given a chance to try. Pt states that she has taken really good care of myself since I got here, I've bathed and brushed my teeth every day. Pt states that she had been taken off her antidepressants during her last and really struggled with depression. Pt expressed remorse over treatment of her daughter and is clearly hoping to bring this baby home. PLAN MOVING FORWARD: Continue to educate and support INDIVIDUALIZED FALL PREVENTION INTERVENTIONS: Patient-specific fall risk factors per assessment: [current deficits]: No deficit Assistance [level of assistance required for transfers and ambulation]: independent Supervision [direct monitoring required during toileting and ADLs]: Pt able to reliably call for assistance Surveillance [continuous indirect monitoring]: Purposeful rounding Goal: Individualization & Mutuality Outcome: Ongoing (Interventions Implemented as Appropriate) 05/01/18 1324 05/05/181752 Individualization Patient Specific Preferences -- keep my baby inside Patient Specific Goals -- stay Patient Specific Interventions -- monitor for contractions, NST, support and education Mutuality/Individual Preferences What Anxieties, Fears or Concerns Do You Have About Your Health or Care? Baby going to [facility] -- Goal: Fall Prevention-Safe Patient Handling Outcome: Ongoing (Interventions Implemented as Appropriate) 05/04/18 19305/05/18 2300 Daily Care Interventions Self-Care Promotion -- independence encouraged Brown Fall Risk History of Falling -- 0 Secondary Diagnosis -- 15 Ambulatory Aids -- 0 Intravenous Therapy/Heparin/Saline Lock -- 20 Gait/Transferring -- 0 Mental Status -- 0 Score -- 35 OTHER Brown Fall Risk -- Med Restraint Interventions Safety Promotion/Fall Prevention -- nonskid shoes/slippers when out of bed Positioning Body Position -- independent Activity Activity Type -- up ad corrina Activity Assistance Provided -- independent Assistive Device Utilized none -- Goal: Infection Control Outcome: Ongoing (Interventions Implemented as Appropriate) 05/05/18 2300 Safety Interventions Isolation Precautions standard precautions maintained Infection Prevention single patient room provided;rest/sleep promoted;personal protective equipmentutilized;equipment surfaces disinfected;environmental surveillance performed Coping Strategies Supportive Measures active listening utilized;counseling provided;decision- making supported;goal setting facilitated;positive reinforcement provided;problem solving facilitated;relaxation techniques promoted;self-care encouraged;self-reflection promoted;self-responsibility promoted;verbalization offeelings encouraged Goal: Discharge Needs Assessment Outcome: Ongoing (Interventions Implemented as Appropriate) 04/28/18 0632 Discharge Needs Assessment Concerns To Be Addressed cognitive/perceptual concerns;other (see comments) ([facility] involvement) Readmission Within The Last 30 Days no previous admission in last 30 days Equipment Needed After Discharge none Discharge Disposition still a patient Current Health Anticipated Changes Related to Illness none Activity/Self Care Review of Systems Equipment Currently Used at Home none Living Environment Transportation Available family or friend will provide Goal: Interdisciplinary Rounds/Family Conf Outcome: Ongoing (Interventions Implemented as Appropriate) 05/05/18 0634 Interdisciplinary Rounds/Family Conf Participants nursing;patient;case supervisor;physician Problem: Labor (Adult,Obstetrics,Pediatric) Goal: Signs and Symptoms of Listed Potential Problems Will be Absent, Minimized or Managed (PretermLabor) Signs and symptoms of listed potential problems will be absent, minimized or managed by discharge/transition of care (reference Labor (Adult,Obstetrics,Pediatric) CPG). Outcome: Ongoing (Interventions Implemented as Appropriate) 05/06/18 0544 Labor Problems Assessed ( Labor) all Problems Present ( Labor) none * Plan of Care - Emily Garcia RN - 05/05/2018 5:57 PM EST Problem: Patient Care Overview Goal: Plan of Care Review Outcome: Ongoing (Interventions Implemented as Appropriate) 05/05/181752 Plan of Care Review Progress progress toward functional goals as expected Coping/Psychosocial Plan Of Care Reviewed With patient OUTCOME EVALUATION NOTE: OUTCOME SUMMARY: Pt remains stable thus far in this shift, VSS, NST Cat I, fetus active per pt report, no contractions,bleeding or LOF, PLAN MOVING FORWARD: Continue monitoring per OB labor CPG, support for extermination supervisor hospitalization INDIVIDUALIZED FALL PREVENTION INTERVENTIONS: Patient-specific fall risk factors per assessment: [current deficits]: none Assistance [level of assistance required for transfers and ambulation]: independent Supervision [direct monitoring required during toileting and ADLs]: Pt able to reliably call for assistance Surveillance [continuous indirect monitoring]: Purposeful rounding Patient-specific fall prevention interventions for sensory deficits provided, if applicable: NA CPG GOAL OUTCOME EVALUATION: Goal: Individualization & Mutuality Outcome: Ongoing (Interventions Implemented as Appropriate) 05/01/18 1324 05/05/18 1753 Individualization Patient Specific Preferences -- keep my baby inside Patient Specific Goals -- stay Patient Specific Interventions -- monitor for contractions, NST, support and education Mutuality/Individual Preferences What Anxieties, Fears or Concerns Do You Have About Your Health or Care? [facility] -- Goal: Fall Prevention-Safe Patient Handling Outcome: Ongoing (Interventions Implemented as Appropriate) 05/04/18 1934 05/05/18 0851 Daily Care Interventions Self-Care Promotion independence encouraged -- Brown Fall Risk History of Falling 0 -- Secondary Diagnosis 0 -- Ambulatory Aids 0 -- Intravenous Therapy/Heparin/Saline Lock 20 -- Gait/Transferring 0 -- Mental Status 0 -- Score 20 -- OTHER Brown Fall Risk Low -- Restraint Interventions Safety Promotion/Fall Prevention -- nonskid shoes/slippers when out of bed Positioning Body Position -- independent Activity Activity Type up ad corrina -- Activity Assistance Provided assistance, 1 person -- Assistive Device Utilized none -- Goal: Infection Control Outcome: Ongoing (Interventions Implemented as Appropriate) 05/05/18 0851 Safety Interventions Isolation Precautions standard precautions maintained Infection Prevention rest/sleep promoted;single patient room provided Coping Strategies Supportive Measures active listening utilized;relaxation techniques promoted;verbalization of feelings encouraged Goal: Discharge Needs Assessment Outcome: Ongoing (Interventions Implemented as Appropriate) 04/28/18 0632 Discharge Needs Assessment Concerns To Be Addressed cognitive/perceptual concerns;other (see comments) ([facility] involvement) Readmission Within The Last 30 Days no previous admission in last 30 days Equipment Needed After Discharge none Discharge Disposition still a patient Current Health Anticipated Changes Related to Illness none Activity/Self Care Review of Systems Equipment Currently Used at Home none Living Environment Transportation Available family or friend will provide Goal: Interdisciplinary Rounds/Family Conf Outcome: Ongoing (Interventions Implemented as Appropriate) 05/05/18 0634 Interdisciplinary Rounds/Family Conf Participants nursing;patient;case supervisor;physician * Plan of Care - Shanti Wade RN - 05/05/2018 6:46 AM EST Problem: Patient Care Overview Goal: Plan of Care Review Outcome: Ongoing (Interventions Implemented as Appropriate) 04/30/18 0524 05/04/18 1934 Plan of Care Review Progress progress toward functional goals as expected -- Coping/Psychosocial Plan Of Care Reviewed With -- patient OUTCOME EVALUATION NOTE: OUTCOME SUMMARY: Harley had an uneventful shift, noted to have rested well, denies ctxs, LOF, or vag bleeding, VSS, endores +fm. PLAN MOVING FORWARD: continue to monitor for labor and stay until at leasat 35 weeks INDIVIDUALIZED FALL PREVENTION INTERVENTIONS: with advanced cervical dilation Patient-specific fall risk factors per assessment: [current deficits]: saline lock Assistance [level of assistance required for transfers and ambulation]: independent Supervision [direct monitoring required during toileting and ADLs]: independent Surveillance [continuous indirect monitoring]: purposeful rounding Patient-specific fall prevention interventions for sensory deficits provided, if applicable: CPG GOAL OUTCOME EVALUATION: Goal: Individualization & Mutuality Outcome: Ongoing (Interventions Implemented as Appropriate) 05/01/18 1324 05/03/18 0205 Individualization Patient Specific Preferences -- to get a good nigth sleep Patient Specific Goals -- sleep tonight Patient Specific Interventions -- side lying Mutuality/Individual Preferences What Anxieties, Fears or Concerns Do You Have About Your Health or Care? Baby going to [facility] -- Goal: Fall Prevention-Safe Patient Handling Outcome: Ongoing (Interventions Implemented as Appropriate) 05/04/18 193 Daily Care Interventions Self-Care Promotion independence encouraged Brown Fall Risk History of Falling 0 Secondary Diagnosis 0 Ambulatory Aids 0 Intravenous Therapy/Heparin/Saline Lock 20 Gait/Transferring 0 Mental Status 0 Score 20 OTHER Brown Fall Risk Low Restraint Interventions Safety Promotion/Fall Prevention fall prevention program maintained;nonskid shoes/slippers when outof bed;safety round/check completed Positioning Body Position independent Activity Activity Type up ad corrina Activity Assistance Provided assistance, 1 person Assistive Device Utilized none Goal: Infection Control Outcome: Ongoing (Interventions Implemented as Appropriate) 05/04/18 193 Safety Interventions Isolation Precautions standard precautions maintained Infection Prevention single patient room provided;environmental surveillance performed;personal protective equipment utilized;rest/sleep promoted Coping Strategies Supportive Measures active listening utilized;self-care encouraged Goal: Discharge Needs Assessment Outcome: Ongoing (Interventions Implemented as Appropriate) 04/28/18 0632 Discharge Needs Assessment Concerns To Be Addressed cognitive/perceptual concerns;other (see comments) ([facility] involvement) Readmission Within The Last 30 Days no previous admission in last 30 days Equipment Needed After Discharge none Discharge Disposition still a patient Current Health Anticipated Changes Related to Illness none Activity/Self Care Review of Systems Equipment Currently Used at Home none Living Environment Transportation Available family or friend will provide Goal: Interdisciplinary Rounds/Family Conf Outcome: Ongoing (Interventions Implemented as Appropriate) 05/05/18 0634 Interdisciplinary Rounds/Family Conf Participants nursing;patient;case supervisor;physician Problem: Labor (Adult,Obstetrics,Pediatric) Goal: Signs and Symptoms of Listed Potential Problems Will be Absent, Minimized or Managed (PretermLabor) Signs and symptoms of listed potential problems will be absent, minimized or managed by discharge/transition of care (reference Labor (Adult,Obstetrics,Pediatric) CPG). Outcome: Ongoing (Interventions Implemented as Appropriate) 05/04/181933 Labor Problems Assessed ( Labor) all Problems Present ( Labor) none * Plan of Care - Debby Scruggs RN - 05/03/2018 2:04 AM EST Problem: Patient Care Overview Goal: Plan of Care Review Outcome: Ongoing (Interventions Implemented as Appropriate) 04/30/1852305/02/182135 Plan of Care Review Progress progress toward functional goals as expected -- Coping/Psychosocial Plan Of Care Reviewed With -- patient OUTCOME EVALUATION NOTE: OUTCOME SUMMARY: VSS, afebrile. Pt doing well and has no complaints. Fetus active. Denies LOF, bleeding or contractions. Denies abdominal tenderness. Denies [place], visual changes or epigastric pain. See flow sheet for more info. PLAN MOVING FORWARD: Continue with current plan of care for AP patient. Continue to offer support and education. INDIVIDUALIZED FALL PREVENTION: Assistance: Independent. Supervision: Pt encouraged to call with questions, concerns or changes. Surveillance: Purposeful rounding * Plan of Care - Lenora Shah RN - 05/02/2018 6:19 PM EST Problem: Labor (Adult,Obstetrics,Pediatric) Goal: Signs and Symptoms of Listed Potential Problems Will be Absent, Minimized or Managed (PretermLabor) Signs and symptoms of listed potential problems will be absent, minimized or managed by discharge/transition of care (reference Labor (Adult,Obstetrics,Pediatric) CPG). Outcome: Ongoing (Interventions Implemented as Appropriate) 05/02/188 Labor Problems Assessed ( Labor) all Problems Present ( Labor) none Uneventful shift, VSS, +FM, -VB, -LOF, some UCs during NST but pt denies. IV replaced 2/2 mild infiltration, pt prince well. Visitors today. Visit from volunteer services. Pt in good spirits. * Plan of Care - Siri Luis RN - 05/01/2018 1:34 PM EST Problem: Patient Care Overview Goal: Plan of Care Review Outcome: Ongoing (Interventions Implemented as Appropriate) 04/30/18 0524 05/01/18 0738 Plan of Care Review Progress progress toward functional goals as expected -- Coping/Psychosocial Plan Of Care Reviewed With -- patient OUTCOME EVALUATION NOTE: OUTCOME SUMMARY: Stable VS, assessment per flowsheet PLAN MOVING FORWARD: Continue to mitior for antepartum problems INDIVIDUALIZED FALL PREVENTION INTERVENTIONS: Patient-specific fall risk factors per assessment: [current deficits]: NA lock Assistance [level of assistance required for transfers and ambulation]: independent Supervision [direct monitoring required during toileting and ADLs]: independent Surveillance [continuous indirect monitoring]: purposeful rounding CPG GOAL OUTCOME EVALUATION: ongoing Goal: Individualization & Mutuality Outcome: Ongoing (Interventions Implemented as Appropriate) 05/01/18 1324 Individualization Patient Specific Interventions remain Mutuality/Individual Preferences What Anxieties, Fears or Concerns Do You Have About Your Health or Care? [facility] Goal: Fall Prevention-Safe Patient Handling Outcome: Ongoing (Interventions Implemented as Appropriate) 04/30/18 1931 05/01/18 0738 Daily Care Interventions Self-Care Promotion independence encouraged -- Brown Fall Risk History of Falling -- 0 Secondary Diagnosis -- 0 Ambulatory Aids -- 0 Intravenous Therapy/Heparin/Saline Lock -- 20 Gait/Transferring -- 0 Mental Status -- 0 Score -- 20 OTHER Brown Fall Risk -- Low Restraint Interventions Safety Promotion/Fall Prevention -- safety round/check completed Positioning Body Position -- independent Activity Activity Type -- up ad corrina Activity Assistance Provided -- independent Assistive Device Utilized -- none Goal: Infection Control Outcome: Ongoing (Interventions Implemented as Appropriate) 05/01/18 0738 Safety Interventions Isolation Precautions standard precautions maintained Infection Prevention single patient room provided;rest/sleep promoted Coping Strategies Supportive Measures active listening utilized;counseling provided;decision- making supported;verbalization of feelings encouraged;self-responsibility promoted;self-care encouraged;relaxation techniques promoted;problem solving facilitated;goal setting facilitated;positive reinforcement provided Goal: Discharge Needs Assessment Outcome: Ongoing (Interventions Implemented as Appropriate) 04/28/18 0632 Discharge Needs Assessment Concerns To Be Addressed cognitive/perceptual concerns;other (see comments) ([facility] involvement) Readmission Within The Last 30 Days no previous admission in last 30 days Equipment Needed After Discharge none Discharge Disposition still a patient Current Health Anticipated Changes Related to Illness none Activity/Self Care Review of Systems Equipment Currently Used at Home none Living Environment Transportation Available family or friend will provide Goal: Interdisciplinary Rounds/Family Conf 04/30/18 0522 Interdisciplinary Rounds/Family Conf Participants nursing;patient Problem: Labor (Adult,Obstetrics,Pediatric) Goal: Signs and Symptoms of Listed Potential Problems Will be Absent, Minimized or Managed (PretermLabor) Signs and symptoms of listed potential problems will be absent, minimized or managed by discharge/transition of care (reference Labor (Adult,Obstetrics,Pediatric) [facility]PG). Outcome: Ongoing (Interventions Implemented as Appropriate) 05/01/18 0738 Labor Problems Assessed ( Labor) all Problems Present ( Labor) none * Plan of Care - Saniya Chaparro RN - 04/30/2018 6:15 AM EST Pt states is hoping to care for infant after delivery, while in hospital. * Plan of Care - Saniya Chaparro RN - 04/30/2018 5:27 AM EST Problem: Patient Care Overview Goal: Plan of Care Review Outcome: Ongoing (Interventions Implemented as Appropriate) 04/30/18 0524 Plan of Care Review Progress progress toward functional goals as expected Coping/Psychosocial Plan Of Care Reviewed With patient OUTCOME EVALUATION NOTE: OUTCOME SUMMARY: Pt moving toward goals of POC as evident by no active labor at this time, with reactive NSTs. PLAN MOVING FORWARD: Continue maternal/ surveillance. Observe for s/s of ptl. INDIVIDUALIZED FALL PREVENTION INTERVENTIONS: Patient-specific fall risk factors per assessment: [current deficits]: independent Assistance [level of assistance required for transfers and ambulation]: independent Supervision [direct monitoring required during toileting and ADLs]: indepenent Surveillance [continuous indirect monitoring]: S\s of PTL, maternal wellbeing. Patient-specific fall prevention interventions for sensory deficits provided, if applicable: [X] N/A CPG GOAL OUTCOME EVALUATION: * Plan of Care - So Prajapati RN - 04/29/2018 5:25 PM EST Problem: Patient Care Overview Goal: Plan of Care Review Outcome: Ongoing (Interventions Implemented as Appropriate) 04/28/18 0632 04/28/18 2113 Plan of Care Review Progress progress toward functional goals as expected -- Coping/Psychosocial Plan Of Care Reviewed With -- patient;mother VSS. Assessment per flowsheet. Denies CTX, LOF, VB and reports FM. Goal: Fall Prevention-Safe Patient Handling Outcome: Ongoing (Interventions Implemented as Appropriate) 04/27/18211104/28/18211204/29/186 Daily Care Interventions Self-Care Promotion -- independence encouraged -- Brown Fall Risk History of Falling -- -- 0 Secondary Diagnosis -- -- 0 Ambulatory Aids -- -- 0 Intravenous Therapy/Heparin/Saline Lock -- -- 20 Gait/Transferring -- -- 0 Mental Status -- -- 0 Score -- -- 20 OTHER Brown Fall Risk -- -- Low Restraint Interventions Safety Promotion/Fall Prevention -- -- safety round/check completed;nonskid shoes/slippers when outof bed Positioning Body Position -- -- independent with trapeze/overhead bed frame Activity Activity Type -- -- activity adjusted per tolerance Activity Assistance Provided -- -- independent Assistive Device Utilized none -- -- Goal: Infection Control Outcome: Ongoing (Interventions Implemented as Appropriate) 04/28/18211204/29/18755 Safety Interventions Isolation Precautions -- standard precautions maintained Infection Prevention rest/sleep promoted;single patient room provided;environmental surveillance performed -- Coping Strategies Supportive Measures -- active listening utilized;counseling provided;goal setting facilitated;self-care encouraged;self-responsibility promoted;verbalization of feelings encouraged Goal: Discharge Needs Assessment Outcome: Ongoing (Interventions Implemented as Appropriate) 04/28/18 0632 Discharge Needs Assessment Concerns To Be Addressed cognitive/perceptual concerns;other (see comments) ([facility] involvement) Readmission Within The Last 30 Days no previous admission in last 30 days Equipment Needed After Discharge none Discharge Disposition still a patient Current Health Anticipated Changes Related to Illness none Activity/Self Care Review of Systems Equipment Currently Used at Home none Living Environment Transportation Available family or friend will provide Goal: Interdisciplinary Rounds/Family Conf Outcome: Ongoing (Interventions Implemented as Appropriate) 04/28/18 0632 Interdisciplinary Rounds/Family Conf Participants nursing;family;patient * Plan of Care - Katie Azul RN - 04/29/2018 4:56 AM EST Problem: Patient Care Overview Goal: Plan of Care Review Outcome: Ongoing (Interventions Implemented as Appropriate) 04/28/18 0632 04/28/182112 Plan of Care Review Progress progress toward functional goals as expected -- Coping/Psychosocial Plan Of Care Reviewed With -- patient;mother OUTCOME EVALUATION NOTE: OUTCOME SUMMARY: Stable AP patient. VSS. Denies vaginal bleeding, loss of fluid, or contractions tonight. Reports + activity. Slept fairly well. Is calm and cooperative but seems unable to communicate well/engage in a conversation. Wears her SCDs while in bed. PLAN MOVING FORWARD: Remain INDIVIDUALIZED FALL PREVENTION INTERVENTIONS: Patient-specific fall risk factors per assessment: [current deficits]: None/Gait steady Assistance [level of assistance required for transfers and ambulation]: None/Independent Supervision [direct monitoring required during toileting and ADLs]: Independent Surveillance [continuous indirect monitoring]: Purposeful rounidng Patient-specific fall prevention interventions for sensory deficits provided, if applicable: NA [facility] GOAL OUTCOME EVALUATION: Problem: Labor (Adult,Obstetrics,Pediatric) Goal: Signs and Symptoms of Listed Potential Problems Will be Absent, Minimized or Managed (PretermLabor) Signs and symptoms of listed potential problems will be absent, minimized or managed by discharge/transition of care (reference Labor (Adult,Obstetrics,Pediatric) [facility]). Outcome: Ongoing (Interventions Implemented as Appropriate) 04/28/182112 Labor Problems Assessed ( Labor) all Problems Present ( Labor) none * Plan of Care - So Prajapati RN - 2018 1:17 PM EST Problem: Patient Care Overview Goal: Plan of Care Review Outcome: Ongoing (Interventions Implemented as Appropriate) 04/28/18 0632 04/28/18 1200 Plan of Care Review Progress progress toward functional goals as expected -- Coping/Psychosocial Plan Of Care Reviewed With -- patient;mother VSS. Assessment per flowsheet. Goal: Fall Prevention-Safe Patient Handling Outcome: Ongoing (Interventions Implemented as Appropriate) 04/27/18211104/28/18 1200 Daily Care Interventions Self-Care Promotion independence encouraged;BADL personal objects within reach;BADL personal routines maintained -- Stephanie Fall Risk History of Falling -- 0 Secondary Diagnosis -- 0 Ambulatory Aids -- 0 Intravenous Therapy/Heparin/Saline Lock -- 20 Gait/Transferring -- 0 Mental Status -- 0 Score -- 20 OTHER Brown Fall Risk -- Low Restraint Interventions Safety Promotion/Fall Prevention -- nonskid shoes/slippers when out of bed;safety round/check completed Positioning Body Position -- independent Activity Activity Type activity adjusted per tolerance;up ad corrina -- Activity Assistance Provided independent -- Assistive Device Utilized none -- Goal: Infection Control Outcome: Ongoing (Interventions Implemented as Appropriate) 04/27/18211104/28/18 1200 Safety Interventions Isolation Precautions -- standard precautions maintained Infection Prevention environmental surveillance performed;rest/sleep promoted;single patient room provided -- Coping Strategies Supportive Measures -- active listening utilized Goal: Discharge Needs Assessment Outcome: Ongoing (Interventions Implemented as Appropriate) 04/28/18 0632 Discharge Needs Assessment Concerns To Be Addressed cognitive/perceptual concerns;other (see comments) ([facility] involvement) Readmission Within The Last 30 Days no previous admission in last 30 days Equipment Needed After Discharge none Discharge Disposition still a patient Current Health Anticipated Changes Related to Illness none Activity/Self Care Review of Systems Equipment Currently Used at Home none Living Environment Transportation Available family or friend will provide Goal: Interdisciplinary Rounds/Family Conf Outcome: Ongoing (Interventions Implemented as Appropriate) 04/28/18 0632 Interdisciplinary Rounds/Family Conf Participants nursing;family;patient * Plan of Care - Soco Huffman RN - 2018 6:35 AM EST Problem: Patient Care Overview Goal: Plan of Care Review Outcome: Ongoing (Interventions Implemented as Appropriate) 04/27/18211104/28/18 0632 Plan of Care Review Progress -- progress toward functional goals as expected Coping/Psychosocial Plan Of Care Reviewed With patient;mother -- OUTCOME EVALUATION NOTE: OUTCOME SUMMARY: Pt remains , VS stable, no complaints this shift so far at this time. Scheduled meds given. See care plan goal summaries & comprehensive report for maternal & status. PLAN MOVING FORWARD: Continue care as directed in [facility] care plans. INDIVIDUALIZED FALL PREVENTION: Assistance: None, pt independent Supervision: Remind pt to call for assistance when needed, call light within reach Surveillance: Purposeful rounding [facility] OUTCOME EVALUATION: Goal: Fall Prevention-Safe Patient Handling Outcome: Ongoing (Interventions Implemented as Appropriate) 04/27/182111 Daily Care Interventions Self-Care Promotion independence encouraged;BADL personal objects within reach;BADL personal routines maintained Brown Fall Risk History of Falling 0 Secondary Diagnosis 0 Ambulatory Aids 0 Intravenous Therapy/Heparin/Saline Lock 20 Gait/Transferring 0 Mental Status 0 Score 20 OTHER Brown Fall Risk Low Restraint Interventions Safety Promotion/Fall Prevention fall prevention program maintained;nonskid shoes/slippers when outof bed Positioning Body Position independent Activity Activity Type activity adjusted per tolerance;up ad corrina Activity Assistance Provided independent Assistive Device Utilized none Goal: Infection Control Outcome: Ongoing (Interventions Implemented as Appropriate) 04/27/182111 Safety Interventions Isolation Precautions standard precautions maintained Infection Prevention environmental surveillance performed;rest/sleep promoted;single patient room provided Coping Strategies Supportive Measures active listening utilized;goal setting facilitated;positive reinforcement provided;verbalization of feelings encouraged Goal: Discharge Needs Assessment Outcome: Ongoing (Interventions Implemented as Appropriate) 04/28/18 06 Discharge Needs Assessment Concerns To Be Addressed cognitive/perceptual concerns;other (see comments) ([facility] involvement) Readmission Within The Last 30 Days no previous admission in last 30 days Equipment Needed After Discharge none Discharge Disposition still a patient Current Health Anticipated Changes Related to Illness none Activity/Self Care Review of Systems Equipment Currently Used at Home none Living Environment Transportation Available family or friend will provide Goal: Interdisciplinary Rounds/Family Conf Outcome: Ongoing (Interventions Implemented as Appropriate) 04/28/18 0632 Interdisciplinary Rounds/Family Conf Participants nursing;family;patient Problem: Labor (Adult,Obstetrics,Pediatric) Goal: Signs and Symptoms of Listed Potential Problems Will be Absent, Minimized or Managed (PretermLabor) Signs and symptoms of listed potential problems will be absent, minimized or managed by discharge/transition of care (reference Labor (Adult,Obstetrics,Pediatric) C[facility]). Outcome: Ongoing (Interventions Implemented as Appropriate) 04/27/182111 Labor Problems Assessed ( Labor) all Problems Present ( Labor) situational response * Plan of Care - Laly Jung RN - 04/27/2018 6:17 AM EST Problem: Patient Care Overview Goal: Plan of Care Review Outcome: Ongoing (Interventions Implemented as Appropriate) 04/26/18 0634 04/26/18 210 Plan of Care Review Progress progress toward functional goals as expected -- Coping/Psychosocial Plan Of Care Reviewed With -- patient;mother OUTCOME EVALUATION NOTE: OUTCOME SUMMARY: VSS, assessment as documented (see doc flowsheets). Pt reported +FM, denied ctx/cramping, LOF, and vaginal bleeding this shift. Pt had a flat affect throughout shift but acted and answered questions appropriately and was compliant with care. SCDs worn overnight. Pt's mother remained at bedside throu ghout shift. Will continue to closely monitor. PLAN MOVING FORWARD: Continue with antepartum care and management, provide education, close monitoring. INDIVIDUALIZED FALL PREVENTION INTERVENTIONS: Patient-specific fall risk factors per assessment: [current deficits]: IV site. Assistance [level of assistance required for transfers and ambulation]: Independent. Supervision [direct monitoring required during toileting and ADLs]: Independent. Surveillance [continuous indirect monitoring]: Purposeful rounding, call souza within reach and pt is using appropriately. Patient-specific fall prevention interventions for sensory deficits provided, if applicable: [facility] GOAL OUTCOME EVALUATION: * Consult Note - Larry Moraes MD - 04/26/2018 4:57 PM EST Neonatology consult note We were asked by Dr. Baldwin to see this patient due to concern for labor. .Harley Friedman is a 22-year-old currently at 33-1/7 weeks gestation whose has been complicated by previous deliveries, choroid plexi cyst, depression on SSRI, ADHD, cognitive delay, who was found to have cervical dilation to 6 cm and was transferred here from [facility]. Since admission here she has not had further cervical dilation, has not had rupture of membranesnor is she having contractions. She has been given 2 doses of betamethasone. She is with amale fetus who is growing well. We met with patient in her room with her mother and friend to discuss potential delivery at 33-34 weeks gestation. We discussed anticipated course including apnea prematurity, immature thermoregulation, immature feeding. We discussed criteria for discharge and anticipated length of stay. We discussed that baby is born at this gestation typically do well, meaning they do not usually have significant sequelae of prematurity. Harley was difficult to engage, as she was upset due to recent news of likely DCF custody of this . She expressed frustration with this and wanting to take her child home. She has some questions which were answered in our session. I explained that we are happy to come back in answer any further questions if she had any. We will continue to follow along with you, thank you for this consult. Larry Moraes MD * Initial Assessments - Cinthya Galvez MSW - 04/26/2018 3:38 PM EST Office of Care Management Initial Assessment [facility] reviewed record and discussed patient with Care Team. Source of Information: Pt, Harley Friedman, her mother Daniela, and her Developmental Services case management manager, Cassia Paris. Introduced self/reviewed role; services accepted. Reason for Hospitalization: Reason for Admission as Stated by Patient: I want this baby out ?? Harley Friedman is a 22 y.o. at 33w0d weeks gestation. She presented to her routine appointment and was found to be 6/100/0. She was found to be brayden about every 10 minutes. Multiple exams documented and unclear about status of ROM - clear fluid and intact membranes both documented. Her cervical exam was stable over hours so she was transported to [facility] for further management. Past Medical History: Diagnosis Date ??? ADHD (attention deficit hyperactivity disorder) ??? Major depression ??? Premature Born 4 months early Hospitalizations Within the Past 30 Days: None Anticipated Length Of Stay (If known): Unknown Current Decision-Making Capacity: Harley is developmentally delayed, however she is her own guardian and makes her own healthcare decisions. Advance Care Planning: There is no Advance Directive on file. Per [place] Surrogacy law, Harley's mother, Daniela Friedman, would become Harley's decision-maker in the event that Harley became unable to make her own healthcare decisions. Current Coping/Education/Information Needs: Harley is in good spirits this afternoon but states sheis ready for the baby to come out. She has experienced some intermittent pain and what she thinks are contractions. She verbalizes understanding that her baby will need to be in the ICN for a period of time after . She has a daughter, Diana, who was born in July 2016 who was in the ICN, so Harley has some familiarity with this environment. Current Functional Ability: ; Independent in ADL's. Functional Status Prior to Admission: Same. Home Environment: Harley lives in a two-bedroom apartment in [place], [place] with her mother and her mother's friend, who Harley states she does not like and hopes will move out, but my mom feels bad for him and doesn't want him to be homeless. Harley states that she has her own bedroom with a bassinet/pack and play for the baby and what sounds like a space heater. She and her mom described the apartment as cluttered and Harley mentioned that the crib she has is on the porch buried under abunch of other stuff. Social & Family Supports/Community Resources: Harley receives Developmental Services through [facility]. She has a case management manager, Cassia Paris, who is here with her today.Cassia states that she can provide assistance with a number of things, including taking Harley to her own appointments or appointments for the baby. Harley also has 12 hours per week of communitysupport, meaning a worker spends time with her in the community or at home engaging in various activities. Harley also attends a DBT group at [facility]. Harley reports that she has WIC and [place] Medicaid. She does not have [employer] [place] because her mother's income would be counted toward eligibility since they live in the same home. She receives SSI and has access to some of this money to use for purchase of items for the baby as needed. Harley does not have a trolley coach driver's license. Daniela does drive and has a license and vehicle. Daniela works full-time and has a somewhat flexible schedule which she states will enable her to stay here with Harley on the BP and also when the baby is in the ICN. Harley has a boyfriend, Antonio, who is 18. Harley is uncertain of his last name but thinks it may be Narendra. She reports they have been together since September and although he is not the father of the baby, he hopes to be involved in a parental-type role. Harley states that Antonio also has developmental disabilities and receives services through [facility] and lives with a shared living provider who provides him with support. Harley thinks that he is still in high school but is not sure. She states that Antonio has a license but no vehicle. Harley did not name any other supports, however has been involved with numerous community agencies at different times and is aware of resources. Harley's daughter, Diana (born July 2016) was removed from Harley's custody by DCF around 3 months of age due to concern for abuse and neglect and is placed in the care of Harley's cousin in [place]. Harley relinquishedher parental rights to Diana, who is now being adopted by Harley's cousin. Harley does not really have contact with Diana, but gets updates from her mom, who remains in touch with the cousin. Behavioral Health History: Harley reports a history of ADHD, intellectual disability, and post- depression. Harley states that her PPD following her daughter's was severe and caused her to neglect some of her parenting duties, such as bathing Diana. She eventually went on depression medication, which she remains on at this time and intends to continue through the period as well. Substance Use/Abuse: None known Other Pertinent/Service Specific Information: DCF case management manager Jonathan Nieto ([phone]) called today to report that he is aware that Harley is at [facility] and had received a report from [facility]. Jonathan indicated that DCF has an extensive history with Harley involving her 1 year old daughter and they have significant concerns about Harley's ability to parent this child as well, and their intention at this point is to pursue custody of the baby once born. I discussed with Jonathan that Harley verbalizedfear about this happening, but her current impression is that DCF is not at all involved in her life and may not become involved because Harley feels like she is in a better place with this than with her last baby. I encouraged Jonathan to contact Harley now to at least inform her that DCF would be involved so that she can emotionally prepare herself for this prior to delivery. Jonathan was agreeable to this. Health/Prescription Coverage: Primary Insurance: MEDICAID [place] Secondary Insurance: N/A Prescription Coverage: Yes Preferred Pharmacy: [facility] in [facility] Other: None Primary Care Provider: Tania Leos, [employer] [phone] Patient/Caregiver Goals of Treatment: To get this baby out. I feel like I'm in group home in this hospital room Potential Needs for Transition of Care: Rehab/SNF: No Home Health: TBD DME: TBD Dialysis: No Community Resources: Involved as above Transportation: Mom or [facility] case management manager Other: None Anticipated Barriers to Discharge/Special Considerations: None Assessment: Harley is a developmentally disabled woman who is expecting her second child, a boy sheintends to name Luis. Harley is connected with supportive services, and lives with her mother, whois involved and seems supportive. However, Harley's disabilities are significant, and she lost custody of her 1 year old daughter due to concerns that she was not providing basic care such as regulardiaper changes and bathing, handling her roughly, and was not able to make changes despite heavy involvement of supportive services. There is significant concern that Harley will have similar struggles parenting this baby, and DCF is involved with an intention of pursuing out of home placement for the baby once born. Plan: A member of the Care Management team will continue to monitor progress, follow for continuityof care and assist with transition of care planning. [facility]RBAN[facility] MEDINA Pager: [phone] * Plan of Care - Yarely Quintana RN - 04/26/2018 6:41 AM EST Problem: Patient Care Overview Goal: Plan of Care Review Outcome: Ongoing (Interventions Implemented as Appropriate) 04/25/18202004/26/18 0634 Plan of Care Review Progress -- progress toward functional goals as expected Coping/Psychosocial Plan Of Care Reviewed With patient;mother -- OUTCOME EVALUATION NOTE: OUTCOME SUMMARY: VSS. Assessment as documented. Pt has not felt contractions tonight and slept throughout the night. PLAN MOVING FORWARD: Continue towards discharge. INDIVIDUALIZED FALL PREVENTION INTERVENTIONS: Patient-specific fall risk factors per assessment: [current deficits]: none Assistance [level of assistance required for transfers and ambulation]: independent Supervision [direct monitoring required during toileting and ADLs]: none Surveillance [continuous indirect monitoring]: purposeful rounding Patient-specific fall prevention interventions for sensory deficits provided, if applicable: none CPG GOAL OUTCOME EVALUATION: Goal: Fall Prevention-Safe Patient Handling Outcome: Ongoing (Interventions Implemented as Appropriate) 04/25/18202004/26/18633 Daily Care Interventions Self-Care Promotion -- independence encouraged;BADL personal objects within reach;BADL personal routines maintained Brown Fall Risk History of Falling 0 -- Secondary Diagnosis 0 -- Ambulatory Aids 0 -- Intravenous Therapy/Heparin/Saline Lock 20 -- Gait/Transferring 0 -- Mental Status 0 -- Score 20 -- OTHER Brown Fall Risk Low -- Restraint Interventions Safety Promotion/Fall Prevention nonskid shoes/slippers when out of bed;safety round/check completed -- Positioning Body Position independent -- Activity Activity Type up ad corrina -- Activity Assistance Provided independent -- Assistive Device Utilized none -- Goal: Infection Control Outcome: Ongoing (Interventions Implemented as Appropriate) 04/25/182020 Safety Interventions Isolation Precautions standard precautions maintained Infection Prevention visitors restricted/screened;single patient room provided;rest/sleep promoted;environmental surveillance performed Coping Strategies Supportive Measures active listening utilized;decision-making supported;goal setting facilitated;positive reinforcement provided;problem solving facilitated;relaxation techniques promoted;self-care encouraged;self-reflection promoted;self-responsibility promoted;verbalization of feelings encouraged Goal: Discharge Needs Assessment Outcome: Ongoing (Interventions Implemented as Appropriate) 04/26/18633 Discharge Needs Assessment Concerns To Be Addressed no discharge needs identified Readmission Within The Last 30 Days no previous admission in last 30 days Equipment Needed After Discharge none Discharge Disposition home or self-care Current Health Anticipated Changes Related to Illness none Activity/Self Care Review of Systems Equipment Currently Used at Home none Living Environment Transportation Available family or friend will provide Goal: Interdisciplinary Rounds/Family Conf Outcome: Ongoing (Interventions Implemented as Appropriate) 04/26/18633 Interdisciplinary Rounds/Family Conf Participants patient;family;physician;nursing Problem: Labor (Adult,Obstetrics,Pediatric) Goal: Signs and Symptoms of Listed Potential Problems Will be Absent, Minimized or Managed (PretermLabor) Signs and symptoms of listed potential problems will be absent, minimized or managed by discharge/transition of care (reference Labor (Adult,Obstetrics,Pediatric) CPG). Outcome: Ongoing (Interventions Implemented as Appropriate) 04/26/18633 Labor Problems Assessed ( Labor) all Problems Present ( Labor) none documented in this encounter Plan of Treatment Not on file documented as of this encounter Procedures Procedure Name Priority Date/Time Associated Diagnosis Comments IMPLANTABLE DEVICES SCAN 05/08/2018 12:00 AM EST SPECIMEN TO PATHOLOGY Routine 05/06/2018 3:14 PM EST SURGICAL PATHOLOGY REPORT Routine 05/06/2018 2:48 PM EST US OB FOLLOW UP Routine 04/26/2018 8:53 AM EST URINALYSIS MICROSCOPIC EXAM Routine 04/25/2018 7:15 PM EST URINALYSIS WITH REFLEX CULTURE Routine 04/25/2018 7:15 PM EST ABORH RECHECK STATUS Routine 04/25/2018 7:06 PM EST HEMOGRAM Routine 04/25/2018 7:06 PM EST DIFFERENTIAL, AUTOMATED Routine 04/25/2018 7:06 PM EST ABO/RH TYPING Routine 04/25/2018 7:06 PM EST CBC (WITH DIFF) Routine 04/25/2018 7:06 PM EST ANTIBODY SCREEN Routine 04/25/2018 7:06 PM EST TYPE AND SCREEN ([facility]/CGP/MICHAEL) Routine 04/25/2018 7:06 PM EST GC/CHLAMYDIA Routine 04/25/2018 6:43 PM EST GC/CHLAM Routine 04/25/2018 6:43 PM EST SUBSEQUENT EXTERNAL RESULTS PANEL Routine 04/25/2018 10:30 AM EST GROUP B STREP CULTURE SCREEN Routine 04/25/2018 SUBSEQUENT EXTERNAL RESULTS PANEL Routine 03/23/2018 INITIAL EXTERNAL RESULTS PANEL Routine 11/14/2017 documented in this encounter Results * SCAN DOC: IMPLANTABLE DEVICES (05/08/2018 12:00 AM EST) Narrative 05/08/2018 12:00 AM EST Ordered by an unspecified provider. Scanning Provider MEDIA MGR SCAN EXT O RDR/RSLT * Specimen to Pathology (05/06/2018 3:14 PM EST) AP Specimen 05/06/2018 3:14 PM EST 05/07/2018 9:21 AM EST Narrative [facility] - 05/07/2018 9:21 AM EST Specimen requisition ordered. ??Separate Pathology report to follow Resulting Agency Comment Spec In Lab E Melissa Baldwin MD PATHOLOGY/CYTOLOG Y ORDERABLES Performing Organization Address City/State/[facility] Co de Phone Number [facility] [place] [address] * Surgical Pathology Report (05/06/2018 2:48 PM EST) Final Diagnosis [id number] ? Location: ; BP01; A The signing pathologist has (i) examined the relevant preparation(s) for the specimen(s) and (ii) rendered or confirmed the diagnosis(es). . ?Surgical Pathology DIAGNOSIS A - Pre-term placenta, 230 grams. 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 ?No chorioamnionitis. ?Diffuse accelerated villous maturation. ?Multifocal parenchymal infarction with perivillous fibrin, amounting to ?approximately 5% to 10% of parenchymal volume. ?Three vessel umbilical cord with marginal insertion and no funisitis. Electronically signed by: ??Terra WELLS, Nemesio Jeff Verified: ??05/09/2018 ?Pathologist Performed at: ??-[facility] Dept. of Pathology, [place], [place] CLINICAL INFORMATION Specimen Submitted: A - Placenta Provided clinical history/diagnosis : ?? 23-year-old multi P status post at 34 weeks four days following P PROM and admission for advanced cervical dilation. ? SPECIMEN PROCESSING A - Labeled/Fixative: Patient demographics, fresh. Quantity/Size/Julio Cesar ght: Single, 18.0 x 15.0 x 1.8 cm, 230 g. Integrity: Intact. Shape: Ovoid. Membranes: ? - Insertion: 100 percent marginal. ? - Color and Clarity: Red-huston and clear. Cord: ? - Size: 45.0 x 1.4 cm. ? - Number of Vessels: Three. ? - Insertion site: Marginal. Surface: ? - Color and Clarity: Red-purple clear and clear. Maternal Surface: Appears complete and intact. Parenchyma: Spongy, red-brown. ? - Lesions: There are numerous superficial, peripheral areas of rubbery yellow huston parenchyma measuring up to 1.2 cm. The lesions occupy approximately 5-10 percent of the parenchymal volume. Sections/Processi ng: Credit Analysis Manager sections in 8 cassettes as follows: ? A1: ??Membrane roll ? A2: ??Proximal and distal cord ? A3-A5: ??Full thickness parenchyma ? A6-A8: ??Parenchymal lesions ??ejr 05/09/2018 1:24 PM EST [facility] TISSUE SPECIMEN FROM PLACENTA / Unknown 05/06/2018 2:48 PM EST 05/06/2018 2:48 PM EST Cornell Cardona MD PATHOLOGY/CYTOLOGY O RDERAJEISON [facility] [place] [address] * US OB Follow Up (04/26/2018 8:53 AM EST) Anatomical Region Laterality Modality Pelvis, Abdomen Ultrasound 04/26/2018 8:10 AM EST Impressions 04/26/2018 10:38 AM EST 3rd Trimester Summary Single intrauterine with a gestational age of 33w 1d based on LMP ??(09/06/17) Composite age based on the current ultrasound alone is 31w 4d. Estimated weight corresponds to the 37th percentile for 33w 1d. Current growth parameters are consistent with prior dating indicating normal growth. Amniotic fluid volume is normal, Anatomical survey is limited due to the late gestational age. ??Prominent right umbilical vein again visualized. ? Edvin Baldwin MD Electronically Signed Final Report ?? 04/26/2018 10:38 am Narrative 04/26/2018 10:38 AM EST OBSTETRICS REPORT ? (Signed Final 04/26/2018 10:38 am) PATIENT INFO: ID #: ? [id number] ?: ??[birth year] (22 yrs) Name: ? HARLEY Jeff Lewis BAILEY ? Visit Date: 04/26/2018 08:10 am PERFORMED BY: Performed By: ? Kaitlin Barajas RDMS Attending: ?Denny WELLS, Edvin ??Melissa Referred By: ?SO WEBSTER MD Location: ? [place] SERVICE(S) PROVIDED: ??UOBFOL - Efw - Growth ??- [place] - [id number] ?[id number] INDICATIONS: ??33 weeks gestation of ?Z3A.33 ?? labor vs. advanced cervical dilation OB HISTORY: Blood ?Height: ??5'3 ?Weight (lb): 160 ? BMI: ??28.34 Type: EVALUATION: Num Of Fetuses: ? 1 Heart ? 139 Rate(bpm): Cardiac Activity: ?? Observed, normal rhythm Presentation: ? Cephalic Placenta: ? Anterior P. Cord Insertion: ??Within Normal Limits Amniotic Fluid KARTIK FV: ?Normal KARTIK Sum(cm) ? Largest Pocket(cm) 17.21 ? 6.01 RUQ(cm) ? RLQ(cm) ? LUQ(cm) ?LLQ(cm) 2.56 ?2.79 ?5.85 ? 6.01 --------- BIOMETRY: --------- BPD: ?79.7 ??mm ? G.Age: ?? 32w 0d ?16 ??% OFD: ?93.6 ??mm HC: ?276.0 ??mm ? G.Age: ?? 30w 1d ? < 3 ??% AC: ?278.2 ??mm ? G.Age: ?? 31w 6d ?18 ??% FL: ? 61.9 ??mm ? G.Age: ?? 32w 0d ?16 ??% HUM: ?55.6 ??mm ? G.Age: ?? 32w 3d ?42 ??% LV: ? 2.66 ??mm CI: ?85.1 ??% ? 70 - 86 FL/HC: ? 22.4 ??% ? 19.9 - 21.5 HC/AC: ? 0.99 ?0.96 - 1.11 FL/BPD: ?77.7 ??% ? 71 - 87 FL/AC: ? 22.3 ??% ? 20 - 24 Est. FW: ?1834 ?? gm ? 4 lb 1 oz ?37 ??% GESTATIONAL AGE: LMP: ? 33w 1d ?Date: ??09/06/17 ? CHRISTIANO: ?? 06/13/18 U/S Today: ? 31w 4d ?CHRISTIANO: ?? 06/24/18 Best: ?33w 1d ?? Det. By: ??LMP ??(09/06/17) ?CHRISTIANO: ?? 06/13/18 -------- ANATOMY: -------- Cranium: ? Visualized Cavum: ? Visualized Ventricles: ?Limited views Choroid Plexus: ?Limited due to late gestional age Cerebellum: ?Visualized Posterior Fossa: ? Visualized Nuchal Fold: ? Not evaluated at this gestational age Face: ?Limited views Heart: ? 4-chamber view appears normal RVOT: ?Visualized LVOT: ?Visualized Diaphragm: ? Visualized Stomach: ? Visualized Abdomen: ? Visualized Abdominal Wall: ?Prominent Right umbilical vein Cord Vessels: ?3-vessels- grayscale view Kidneys: ? Visualized Bladder: ? Visualized Spine: ? Limited views Upper Extremities: ? Limited views Lower Extremities: ? Limited views CERVIX UTERUS ADNEXA: Left Ovary Not visualized Right Ovary Not visualized Procedure Note Edvin Baldwin MD - 04/26/2018 OBSTETRICS REPORT (Signed Final 04/26/2018 10:38 am) PATIENT INFO: ID #: [id number] : [birth year] (22 yrs) Name: HARLEY FRIEDMAN Visit Date: 04/26/2018 08:10 am PERFORMED BY: Performed By: Kaitlin Barajas RDMS Attending: Edvin Baldwin MD Referred By: SO WEBSTER MD Location: [place] SERVICE(S) PROVIDED: UOBFOL - Efw - Growth - [place] - [id number] INDICATIONS: 33 weeks gestation of Z3A.33 labor vs. advanced cervical dilation OB HISTORY: Blood Height: 5'3 Weight (lb): 160 BMI: 28.34 Type: EVALUATION: Num Of Fetuses: 1 Heart 139 Rate(bpm): Cardiac Activity: Observed, normal rhythm Presentation: Cephalic Placenta: Anterior P. Cord Insertion: Within Normal Limits Amniotic Fluid KARTIK FV: Normal KARTIK Sum(cm) Largest Pocket(cm) 17.21 6.01 RUQ(cm) RLQ(cm) LUQ(cm) LLQ(cm) 2.56 2.79 5.85 6.01 --------- BIOMETRY: --------- BPD: 79.7 mm G.Age: 32w 0d 16 % OFD: 93.6 mm HC: 276.0 mm G.Age: 30w 1d < 3 % AC: 278.2 mm G.Age: 31w 6d 18 % FL: 61.9 mm G.Age: 32w 0d 16 % HUM: 55.6 mm G.Age: 32w 3d 42 % LV: 2.66 mm CI: 85.1 % 70 - 86 FL/HC: 22.4 % 19.9 - 21.5 HC/AC: 0.99 0.96 - 1.11 FL/BPD: 77.7 % 71 - 87 FL/AC: 22.3 % 20 - 24 Est. FW: 1834 gm 4 lb 1 oz 37 % GESTATIONAL AGE: LMP: 33w 1d Date: 09/06/17 CHRISTIANO: 06/13/18 U/S Today: 31w 4d CHRISTIANO: 06/24/18 Best: 33w 1d Det. By: LMP (09/06/17) CHRISTIANO: 06/13/18 -------- ANATOMY: -------- Cranium: Visualized Cavum: Visualized Ventricles: Limited views Choroid Plexus: Limited due to late gestional age Cerebellum: Visualized Posterior Fossa: Visualized Nuchal Fold: Not evaluated at this gestational age Face: Limited views Heart: 4-chamber view appears normal RVOT: Visualized LVOT: Visualized Diaphragm: Visualized Stomach: Visualized Abdomen: Visualized Abdominal Wall: Prominent Right umbilical vein Cord Vessels: 3-vessels- grayscale view Kidneys: Visualized Bladder: Visualized Spine: Limited views Upper Extremities: Limited views Lower Extremities: Limited views CERVIX UTERUS ADNEXA: Left Ovary Not visualized Right Ovary Not visualized IMPRESSION 3rd Trimester Summary Single intrauterine with a gestational age of 33w 1d based on LMP (09/06/17) Composite age based on the current ultrasound alone is 31w 4d. Estimated weight corresponds to the 37th percentile for 33w 1d. Current growth parameters are consistent with prior dating indicating normal growth. Amniotic fluid volume is normal, Anatomical survey is limited due to the late gestational age. Prominent right umbilical vein again visualized. Edvin Baldwin MD Electronically Signed Final Report 04/26/2018 10:38 am E Melissa Baldwin MD IMG US OB ORDERAB LES * (ABNORMAL) Urinalysis Microscopic Exam (04/25/2018 7:15 PM EST) RBC, Urine <1 0 - 4 /HPF [facility] WBC, Urine 3 0 - 5 /HPF [facility] Squamous Epithelial Cells Raw Data, Urine 3 <=4 /HPF [facility] Amorphous Crystals, Urine Rare(A) None /HPF [facility] Urine specimen (specimen) 04/25/2018 7:15 PM EST 04/25/2018 7:23 PM EST Narrative Resulting Agency Comment Spec In Lab Betty Hernandez MD URINE ORDERABLES [facility] [place] [address] * (ABNORMAL) Urinalysis with reflex Culture (04/25/2018 7:15 PM EST) Glucose, Urine Dipstick Negative Negative mg/dL [facility] Protein, Urine Dipstick Negative Negative mg/dL [facility] Bilirubin, Urine Dipstick Negative Negative mg/dL [facility] Comment: Clinical correlation required for positive Urine Bilirubin results as false positive may occur with some drugs and drug related products. If a false positive is suspected a serum total bilirubin should be considered if clinically indicated. Urobilinogen, Urine Dipstick Normal Normal mg/dL [facility] pH, Urn (dipstick) 6.0 5.0 - 8.0 [facility] Blood, Urine Dipstick Large(A) Negative mg/dL [facility] Ketone, Urine Dipstick >=80(Critica l) Negative mg/dL [facility] Comment: Urinalysis result NOT critical without a combination of Glucose greater than or equal to 500mg/dl AND Ketones greater than or equal to 80mg/dl. Nitrite, Urine Dipstick Negative Negative [facility] Leukocytes, Urine Dipstick Small(A) Negative [facility] Appearance, Urine Dipstick Hazy(A) Clear [facility] Specific [place] Urine Automated 1.021 1.002 - 1.030 [facility] Color, Urine Dipstick Yellow Yellow [facility] Reflex to Culture No [facility] Urine specimen (specimen) 04/25/2018 7:15 PM EST 04/25/2018 7:23 PM EST Narrative Resulting Agency Comment Spec In Lab E Melissa Baldwin MD URINE ORDERABLES Performing Organization Address [facility]/ZIP Co de Phone Number [facility] [place] [address] * ABORH Recheck Status (04/25/2018 7:06 PM EST) ABORH Type Recheck Completed [facility] Blood specimen (specimen) 04/25/2018 7:06 PM EST 04/25/2018 7:15 PM EST Narrative Resulting Agency Comment Spec In Lab Betty Hernandez MD BLOOD BANK LAB ORDER NINI Performing Organization Address [facility] Co de Phone Number [facility] [place] [address] * (ABNORMAL) Differential, Automated (04/25/2018 7:06 PM EST) Neutrophil % 90.1 % [facility] Neutrophil Absolute 10.98(H) 1.70 - 6.10 x10(3)/mc L [facility] Lymph % 8.6 % [facility] Lymphocytes Abs 1.0 0.9 - 3.2 x10(3)/mc L [facility] Monocyte % 0.4 % [facility] Monocyte Abs 0.0(L) 0.3 - 0.9 x10(3)/mc L [facility] Eos % 0.2 % [facility] Eosinophils Abs 0.0 0.0 - 0.4 x10(3)/[facility] Basophil % 0.2 % [facility] Baso Absolute 0.0 0.0 - 0.1 x10(3)/[facility] Immature Gran % 0.50 % [facility] Comment: Immature granulocytes(IG's)percentage and absolute count will include metamyelocytes, myelocytes, and promyelocytes. Blood smears from CBCs yielding IG's will be scanned manually for concordance. If this scan disagrees with the automated IG or if promyelocytes are noted, a manual differential will be performed. Immature Gran Absolute 0.06(H) 0.00 - 0.04 x10(3)/[facility] Blood specimen (specimen) 04/25/2018 7:06 PM EST 04/25/2018 7:24 PM EST Narrative Resulting Agency Comment Spec In Lab Betty Hernandez MD HEMATOLOGY ORDERABLE S [facility] [place] [address] * (ABNORMAL) Hemogram (04/25/2018 7:06 PM EST) White Blood Cell 12.2(H) 4.0 - 9.5 x10(3)/[facility] Red Blood Cell 4.37 4.00 - 5.21 x10(6)/[facility] Hemoglobin 12.7 11.7 - 15.5 gm/dL [facility] Hematocrit 38.7 35.7 - 45.8 % [facility] Mean Cell Volume 88.6 82.6 - 94.4 fL [facility] Mean Cell Hemoglobin 29.1 27.1 - 32.0 pg [facility] Mean Cell Hemoglobin Concentration 32.8 31.7 - 35.0 gm/dL [facility] Platelet 227 145 - 357 x10(3)/[facility] RDW Standard Deviation 40.0 37.0 - 46.0 [facility] RDW coefficient of variation 12.4 11.5 - 14.1 % [facility] Mean Platelet Volume 12.1 7.6 - 12.9 [facility] NRBC% auto 0.0 % [facility] NRBC Absolute 0.000 0.000 - 0.000 x10(3)/mc L [facility] Blood specimen (specimen) 04/25/2018 7:06 PM EST 04/25/2018 7:24 PM EST Narrative Resulting Agency Comment Spec In Lab Betty Hernandez MD HEMATOLOGY ORDERABLE S Performing Organization Address City/[facility]/ZIP Co de Phone Number [facility] [place] [address] * Antibody screen (04/25/2018 7:06 PM EST) Ab Screen Interp Negative [facility] Expires at [id number] on: 2018 [facility] Blood specimen (specimen) 04/25/2018 7:06 PM EST 04/25/2018 7:15 PM EST Narrative Resulting Agency Comment Spec In Lab Betty Hernandez MD BLOOD BANK LAB ORDER NINI Performing Organization Address City/[facility]/ZIP Co de Phone Number [facility] [place] [address] * ABO/Rh Typing (04/25/2018 7:06 PM EST) ABORH Type O Pos [facility] Blood specimen (specimen) 04/25/2018 7:06 PM EST 04/25/2018 7:15 PM EST Narrative Resulting Agency Comment Spec In Lab Betty Hernandez MD BLOOD BANK LAB ORDER NINI [facility] [place] [address] * GC/Chlam (04/25/2018 6:43 PM EST) GC Gene Amp Negative Negative [facility] Comment: The only FDA approved specimen types for this assay are cervical, vaginal, urethral and urine. Non-FDA approved sources are eye, throat and rectal and have been internally validated. GC Source Cervical [facility] Chlamydia Gene Amp Negative Negative [facility] Comment: The only FDA approved specimen types for this assay are cervical, vaginal, urethral and urine. Non-FDA approved sources are eye, throat and rectal and have been internally validated. Chlm Source Cervical [facility] Cervical swab (specimen) 04/25/2018 6:43 PM EST 04/25/2018 7:34 PM EST Narrative Resulting Agency Comment Spec In Lab Betty Hernandez MD MICROBIOLOGY - GENER AL ORDERABLES [facility] [place] [address] * (ABNORMAL) - Subsequent External Results (04/25/2018 10:30 AM EST) GBS Screen Negative(Ex ternal Lab) 04/25/2018 10:3 0 AM EST Historical Provider POINT OF CARE PATSY T ORDERABLES * Group B Strep Culture Screen (04/25/2018) GBS Screen Negative Pooled specimen from vaginal introitus and rectal swab (specimen) 04/25/2018 So Webster MD MICROBIOLOGY - GENER AL ORDERABLES * (ABNORMAL) - Subsequent External Results (03/23/2018) Glucose 1 hour 123([employer] Supervisor al Lab) 03/23/2018 Historical Provider POINT OF CARE PATSY T ORDERABLES * (ABNORMAL) - Initial External Results (11/14/2017) Hemoglobin 13.1(Exter nal Lab) Hematocrit 39.1(Exter nal Lab) Platelet 285([employer] Supervisor al Lab) Syphilis IgG/IgM negative(E xternal Lab) Hepatitis B Surface Antigen Negative(E xternal Lab) 11/14/2017 Historical Provider POINT OF CARE PATSY T ORDERABLES documented in this encounter Visit Diagnoses Diagnosis labor Early onset of delivery, unspecified as to episode of care ADHD (attention deficit hyperactivity disorder), combined type Attention deficit disorder with hyperactivity Major depressive disorder, recurrent episode, moderate (DEPRESSION) Major depressive disorder, recurrent episode, moderate Premature cervical dilation in third trimester Intellectual disability Unspecified intellectual disabilities documented in this encounter Admitting Diagnoses Diagnosis labor Early onset of delivery, unspecified as to episode of care documented in this encounter Administered Medications Inactive Administered Medications - up to 3 most recent administrations Medication Order MAR Action Action Date Dose Rate Site acetaminophen (TYLENOL) tablet 650 mg 650 mg, Oral, EVERY 6 HOURS PRN, Starting on Mon04/25/18 at 1830, Until Mon05/06/18 at 1516, Pain, mild pain (1-3), Not exceed 4 grams per 24 hours, Routine Given 04/25/2018 8:15 PM EST 650 mg acetaminophen (TYLENOL) tablet 650 mg 650 mg, Oral, EVERY 6 HOURS PRN, Starting on Mon05/06/18 at 1513, Until Mon05/08/18 at 1617, Pain, - If ordered with other PRN pain medications give Ibuprofen first, then acetaminophen, then additional agents according to the pain scale. - Not to exceed 4g in 24 hours, Routine Given 05/06/2018 8:42 PM EST 650 mg betamethasone acetate-betamethasone sodium phosphate (CELESTONE) injection 12 mg 12 mg, Intramuscular, ONCE, 1 dose, On Tuyet 04/26/18 at 1130, Routine Given 04/26/2018 11:30 AM EST 12 mg Left Quadriceps etonogestrel (NEXPLANON) 68 mg subdermal implant 68 mg, Subdermal, ONCE, 1 dose, On Mon05/08/18 at 0800, Routine Inserted 05/08/2018 10:00 AM EST 68 mg fentaNYL 2 mcg/mL, BUpivacaine (MARCAINE) 0.125% (1.25 [...] Given 05/06/2018 1:43 PM EST 5 mLs FLUoxetine (PROzac) capsule 20 mg 20 mg, Oral, DAILY, First dose on Mon04/25/18 at 1900, Until Discontinued, Routine Given 04/25/2018 8:15 PM EST 20 mg FLUoxetine (PROzac) capsule 20 mg 20 mg, Oral, DAILY, First dose (after last modification) on Tuyet 04/26/18 at 2100, Until Discontinued, Routine Given 05/07/2018 9:09 PM EST 20 mg Given 05/06/2018 8:42 PM EST 20 mg Given 05/05/2018 10:09 PM EST 20 mg ibuprofen (ADVIL;MOTRIN) tablet 600 mg 600 mg, Oral, EVERY 6 HOURS PRN, Starting on Mon05/06/18 at 1513, Until Mon05/08/18 at 1617, Pain, - If ordered with other PRN pain medications give Ibuprofen first, then acetaminophen, then additional agents according to the pain scale., Routine Given 05/07/2018 6:53 AM EST 600 mg Given 05/06/2018 3:44 PM EST 600 mg lactated Ringers 500 mL IV bolus at 500 mL/hr, Intravenous, ONCE PRN, 1 dose, Starting on Mon05/06/18 at 1057, Until Mon05/06/18 at 1310, Prior to epidural placement or concerning heart rate pattern or maternal condition. New Bag 05/06/2018 12:10 PM EST 500 mL/hr lactated Ringers 500 mL IV bolus Intravenous, ONCE, 1 dose, On Mon05/06/18 at 1815 New Bag 05/06/2018 6:20 PM EST lactated Ringers infusion 50 mL/hr, Intravenous, CONTINUOUS, Starting on Mon04/25/18 at 1900, Until Mon05/06/18 at 1514 New Bag 04/25/2018 8:17 PM EST 50 mL/hr 50 mL/hr magnesium sulfate 20 g/500 mL infusion 1 g/hr (25 mL/hr), Intravenous, CONTINUOUS, Starting on Mon04/25/18 at 1715, Until Mon04/25/18 at 1830, Routine New Bag 04/25/2018 4:55 PM EST 1 g/hr 25 mL /hr ondansetron (ZOFRAN) injection 4 mg 4 mg, Intravenous, EVERY 8 HOURS PRN, Starting on Mon04/25/18 at 1830, Until Mon05/06/18 at 1514, Nausea, Vomiting, May repeat in 30 minutes if inefffective Given 04/25/2018 8:11 PM EST 4 mg oxytocin (PITOCIN) 30 units in sodium chloride 0.9% 500 mL infusion 30 Units (500 mL), Intravenous, Administer over 1 Hours, ONCE, 1 dose, On Mon05/06/18 at 1530, ., Routine New Bag 05/06/2018 2:45 PM EST 30 Units pediatric multivitamin pedi chewable tablet 1 tablet 1 tablet, Oral, DAILY, First dose on Mon04/26/18 at 0900, Until Discontinued Given 05/08/2018 9:00 AM EST 1 tablet Given 05/06/2018 9:43 AM EST 1 tablet Given 05/05/2018 8:57 AM EST 1 tablet penicillin G potassium 5 million unit vial attach to sodium chloride 0.9% 100 mL Mini-Bag Plus 5 Million Units, Intravenous, ONCE, 1 dose, On Mon04/25/18 at 1900, Administer over 60 Minutes, Attach to 100 mL sodium chloride 0.9% Mini-Bag Plus. Warning Vesicant/Irritant Medication , Indication for (Active or Suspected): Prophylaxis New Bag 04/25/2018 7:00 PM EST 5 Million Units 110 mL/hr 20-Other (document in comment section) sodium chloride 0.9 % flush 5 mL 5 mL, Intravenous, 2 TIMES DAILY, First dose on Mon04/25/18 at 2100, Until Discontinued, Routine Given 05/06/2018 9:00 AM EST 5 mLs Given 05/05/2018 10:08 PM EST 5 mLs Given 05/05/2018 8:52 AM EST 5 mLs sodium chloride 0.9 % flush 5 mL 5 mL, Intravenous, EVERY 12 HOURS, First dose on 05/06/18 at 1115, Until Discontinued, Routine Given 05/06/2018 11:30 AM EST 5 mLs sodium chloride 0.9 % flush 5-20 mL 5-20 mL, Intravenous, EVERY 1 MIN PRN, Starting on Mon04/25/18 at 1830, Until Mon05/06/18 at 1514, flush, Flush pertains to all indwelling lines. Flush per protocol found in the job aid using the link provided on this medication record., Routine Given 05/02/2018 3:37 PM EST 5 mLs documented in this encounter Active and Recently Administered Medications Times are shown in EST. Scheduled Medication Order 05/06/2018 05/07/2018 05/08/2018 docusate sodium (COLACE) capsule 100 mg 100 mg, Oral, 2 TIMES DAILY, First dose on Mon05/06/18 at 2100, Until Discontinued, Routine 2041 (Not Given - Provider: Madelin Camp RN - Reason: Patient/family refused) 1329 (Not Given - Provider: Lea Treviño RN - Reason: Patient/family refused)2108 (Not Given - Provider: Madelin Camp RN - Reason: Patient/family refused) 0900 (Hold - Provider: Ingris Saleem RN - Reason: Patient/family refused) etonogestrel (NEXPLANON) 68 mg subdermal implant (COMPLETED) 68 mg, Subdermal, ONCE, 1 dose, On Mon05/08/18 at 0800, Routine 1000 (Inserted - Provider: Ingris Saleem, OSCAR) FLUoxetine (PROzac) capsule 20 mg 20 mg, Oral, DAILY, First dose (after last modification) on Tuyet 04/26/18 at 2100, Until Discontinued, Routine 2041 (Given - Provider: Madelin Camp RN) 2108 (Given - Provider: Madelin Camp RN) lactated Ringers 500 mL IV bolus (COMPLETED) Intravenous, ONCE, 1 dose, On 05/06/18 at 1815 1820 (New Bag - Provider: Emily Garcia, OSCAR) oxytocin (PITOCIN) 30 units in sodium chloride 0.9% 500 mL infusion (COMPLETED) 30 Units (500 mL), Intravenous, Administer over 1 Hours, ONCE, 1 dose, On Mon05/06/18 at 1530, ., Routine 1445 (New Bag - Provider: Emily Garcia, OSCAR)1545 (Stopped - Provider: Emily Garcia, OSCAR) pediatric multivitamin pedi chewable tablet 1 tablet 1 tablet, Oral, DAILY, First dose on Tuyet 04/26/18 at 0900, Until Discontinued 0943 (Given - Provider: Emily Garcia RN) 1328 (Not Given - Provider: Lea Treviño RN - Reason: Patient/family refused) 0900 (Given - Provider: Ingris Saleem RN) sodium chloride 0.9 % flush 5 mL (CANCELED) 5 mL, Intravenous, 2 TIMES DAILY, First dose on Mon04/25/18 at 2100, Until Discontinued, Routine 0900 (Given - Provider: Emily Garcia, OSCAR) sodium chloride 0.9 % flush 5 mL (CANCELED) 5 mL, Intravenous, EVERY 12 HOURS, First dose on Mon05/06/18 at 1115, Until Discontinued, Routine 1130 (Given - Provider: Emily Garcia, OSCAR) Continuous Medication Order 05/06/2018 05/07/2018 05/08/2018 fentaNYL 2 mcg/mL, BUpivacaine (MARCAINE) 0.125% (1.25 mg/mL)(1/8%) in sodium chloride 0.9% 250 mL epidural (CANCELED)(Linked Group 1) Epidural, PCEA Dose: 5 mL, PCEA Frequency: Every 20 minutes, Maximum rate for continuous infusion 14 mL per hour Maximum total epidural rate (continuous and PCEA bolus) is 25 mL per hour 1343 (Given - Provider: Zack Lopez)1400 (New Bag - Provider: Eimly Garcia, OSCAR) PRN Medication Order 05/06/2018 05/07/2018 05/08/2018 acetaminophen (TYLENOL) tablet 650 mg 650 mg, Oral, EVERY 6 HOURS PRN, Starting on Mon05/06/18 at 1513, Until Mon05/08/18 at 1617, Pain, - If ordered with other PRN pain medications give Ibuprofen first, then acetaminophen, then additional agents according to the pain scale. - Not to exceed 4g in 24 hours, Routine 2041 (Given - Provider: Madelin Camp, RN) glycerin-witch hermelindo (TUCKS) 12.5-50 % pads Topical (Top), 4 TIMES DAILY PRN, Irritation, perineal pain, Starting on 05/06/18 at 1513, Until 05/08/18 at 1617 ibuprofen (ADVIL;MOTRIN) tablet 600 mg 600 mg, Oral, EVERY 6 HOURS PRN, Starting on 05/06/18 at 1513, Until 05/08/18 at 1617, Pain, - If ordered with other PRN pain medications give Ibuprofen first, then acetaminophen, then additional agents according to the pain scale., Routine 1544 (Given - Provider: Emily Garcia, OSCAR) 0653 (Given - Provider: Madelin Camp, RN) lactated Ringers 500 mL IV bolus (COMPLETED) at 500 mL/hr, Intravenous, ONCE PRN, 1 dose, Starting on 05/06/18 at 1057, Until 05/06/18 at 1310, Prior to epidural placement or concerning heart rate pattern or maternal condition. 1210 (New Bag - Provider: Emily Garcia, OSCAR)1310 (Due: Stopped - Provider: Emily Garcia RN) sodium chloride 0.9 % flush 5-20 mL (CANCELED) 5-20 mL, Intravenous, EVERY 1 MIN PRN, Starting on 05/06/18 at 1057, Until 05/06/18 at 1514, flush, Flush pertains to all indwelling lines. Flush per protocol found in the job aid using the link provided on this medication record., Routine 1343 (Given - Provider: Zack Lopez) Linked Groups Order Group 1: fentaNYL 2 mcg/mL, BUpivacaine (MARCAINE) 0.125% (1.25 mg/mL)(1/8%) in sodium chloride 0.9% 250 mL epidural (CANCELED)Jump to med Epidural, PCEA Dose: 5 mL, PCEA Frequency: Every 20 minutes, Maximum rate for continuous infusion 14 mL per hour Maximum total epidural rate (continuous and PCEA bolus) is 25 mL per hour And Epidural shift total and Settings verification (CANCELED) Epidural, 2 Times Daily- Neuraxial Shift Total, First dose on 05/06/18 at 1800, Until Discontinued documented in this encounter Care Teams Store Operations Manager Relationship Specialty Start Date End Date Tania Leos, PETTY [address] [place] [address] PCP - General Family Medicine 11/20/17 03/04/22 documented as of this encounter
--- OUTSIDE RECORDS SUMMARY | 2024-07-09 13:37 | XMS_ITS | Encounter Summary ---
Author Organization Counts Include [facility] Address [facility] Beni gerardo [address] Care Team Providers Care Oxygen Tank Filler Name Role Phone DarriusTania bustamante Tammy DOVE Primary Care Provider [phone] Reason for Visit * Reason Comments Ultrasound Encounter Details Date Type Department Care Team (Late st Contact Info) Description 03/18/2021 12:15 PM EDT Routine Obstetrics [place] [address] Jesus Callahan MD [facility] [address] OBSTET[place] [address] GA: [id number] Social History Tobacco Use Types Packs/Day Years [...] Sign Reading Time Taken Comments Blood Pressure 112/72 03/18/2021 12:16 PM EDT Pulse - - Temperature - - Respiratory Rate - - Oxygen Saturation - - Inhaled Oxygen Concentration - - Weight 90 kg (198 lb 6.4 oz) 03/18/2021 12:16 PM EDT Height - - Body Mass Index 35.15 04/30/2018 3:08 PM EST documented in this encounter Progress Notes * Jesus Callahan MD - 03/18/2021 12:15 PM EDT Error * Jesus Callahan MD - 03/18/2021 12:15 PM EDT Error * Jesus Callahan MD - 03/18/2021 12:15 PM EDT 25 yo at 22w6d with prior late delivery x 2 and 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 Last week, cervical length was borderline (2.6cm). Pt reports good activity. No bleeding. US today = cervical length of 2.7cm. A/P: Reassuring cervical length. No indication for cerclage. Aruna is still at some increased riskfor labor and delivery. Dr. Gissell Middleton MD 10 minutes was spent performing, documenting and communication this follow up visit. Addendum: As the patient was leaving, she mentioned that she was diagnosed with diabetes during this , that she is on 8 units of long acting insulin at night and that she is checking her sugars. This was new information for our office. It is not clear to me who has prescribed this medicine. We briefly discussed that good sugar control can have a huge impact in lowering the risk. MD Emi documented in this encounter Plan of Treatment Not on file documented as of this encounter Visit Diagnoses Diagnosis History of delivery, currently in second trimester documented in this encounter Care Teams Oxygen Tank Filler Relationship Specialty Start Date End Date Tania Leos APRN [address] [place] [address] PCP - General Family Medicine 11/20/17 03/04/22 documented as of this encounter
--- OUTSIDE RECORDS SUMMARY | 2024-07-09 13:37 | XMS_ITS | Encounter Summary ---
Author Organization [facility] Address [facility] [place] [address] Care Team Providers Care Marketing Pr Intern Name Role Phone Tania Leos APRN Primary Care Provider [phone] Encounter Details Date Type Department Care Team (Latest Contact Info) Description 05/11/2018 Encounter Social History Tobacco Use Types Packs/Day Years [...] as of this encounter Miscellaneous Notes * Note - Kaci Olivas RN - 05/11/2018 8:06 PM EST This note was copied from a baby's chart. I touched base with mom today. Per mom she was pumping while she was an impatient and she was planning on breast feeding. However, after she was discharged she said she did not have a pump and did not pump. When she came in this morning. She spoke with the bedside RN and stated she wanted to start p umping. Mom did pump 150 cc's the first session. The following was 10 cc's. I was at the bedside during a breast feeding session. Mom did request for help with positioning andlatch. She said last time she tried he did not like it and did not want to latch. She said she wanted to try one more time and if he did not like it she would pump and bottle. We worked on modified cross cradle. We discussed the alignment of the baby should be belly to bellyand nose to nipple with mom. I encouraged mom to hold the baby snuggly to her body and on the same plane as the breast with the support of pillows. I reviewed the concept of a deep latch with mom. We discussed that a deep latch is essential for adequate milk production, transfer and thus weight gain. I explained to mom the baby should have an asymmetrical latching taking in a larger part of the underside of the areola. Baby should approach thebreast chin first, the bottom lip to land flanged out further out onto the areola and then the mom moves the baby up and over the nipple. I pointed out both lips should be flanged out and the angle of the lips at ~ 140 degrees. A deep latch should feel like a pull or tug vs a pinch when the baby sucks. Baby tried several to latch. Mom worked on holding the baby and moving the baby to the breast. He did start to cry and became frustrated at one point. Mom then decided that a bottle would be best. I did discusses that if she is hopeful to get a full milk supply she will have to pump 10-12 times in a 24 hour day or anytime the baby takes a bottle. Mom states she understands. She was down sized to 21 mm flanges. She is aware there is a pump at the bedside and one at [facility]. The was going to give mom a hand pump as well for back up. The bedside RN worked with mom and showed her how to use the side lying feeding position when bottle feeding. Mom was encouraged to reach out if she had more concerns or questions. documented in this encounter Plan of Treatment Not on file documented as of this encounter Visit Diagnoses Not on filedocumented in this encounter Care Teams Marketing Pr Intern Relationship Specialty Start Date End Date Tania Leos APRN [address] [place] [address] PCP - General Family Medicine 11/20/17 03/04/22 documented as of this encounter
--- OUTSIDE RECORDS SUMMARY | 2024-07-09 13:38 | XMS_ITS | Encounter Summary ---
Author Organization [facility] Address [address] [place] [address] Care Team Providers Care State Patrol Officer Name Role Phone Unknown, Provider Primary Care Provider Unava ilable Encounter Details Date Type Department Care Team (Late st Contact Info) Description 07/07/2021 Lab Requisition [facility] Pathology & Laboratory Medicine - [facility] [address] [place] [address] Candida Vásquez [address] [place] [address] [place] [phone] Encounter for other general examination Social History Tobacco Use Types Packs/Day Years Used Date Smoking Tobacco: Never Assessed Comments Unknown Sex and Gender Information Value Date Recorded Sex Assigned at Not on file Legal Sex Female 15:02 EST Gender Identity Not on file Sexual Orientation Not on file documented as of this encounter Plan of Treatment Not on file documented as of this encounter Procedures Procedure Name Priority Date/Time Associated Diagnosis Comments SURGICAL PATHOLOGY Today 07/06/2021 23 :45 EST Encounter for other general examination documented in this encounter Results * SURGICAL PATHOLOGY (07/06/2021 23:45 EST) Note to Patient The following pathology results have been interpreted by your pathologist and may be available to you before your health provider has had the opportunity to review them. Please allow time for your provider to receive these results and explore management options, if applicable. 07/15/2021 10:21 EST [facility] Final Diagnosis A. PLACENTA: Hernandez placenta, 370 grams (<10th %ile for 38 and 4/7 weeks gestational age). Disc: - Meconium laden macrophages. - Acute chorionic plate vasculitis ( inflammatory response stage 1, grade 1; see diagnostic ndiaye). - Chronic villitis and basal villitis of unknown etiology, low grade, multifocal. - Features of maternal vascular malperfusion: small placenta by weight, with diffuse chorangiosis and few maternal vessels poorly adapted for gestation. Membranes: - Acute chorioamnionitis (maternal inflammatory response stage 2, grade 1; see diagnostic ndiaye). Umbilical cord: - 3 vessels. - No significant histopathologic changes. 07/15/2021 10:21 [facility] Diagnosis Comment Diagnostic ndiaye: Maternal inflammatory response stage (location): Stage 0 - Pre-RIK: Neutrophils in the subchorial intervillous space of the chorionic plate. Stage 1 (Early): Neutrophils in chorion laeve. Stage 2 (Intermediate): Neutrophils within chorionic or amnionic mesoderm. Stage 3 (Advanced): Stage 2 with necrosis of amnionic epithelium and/or neutrophils. Maternal inflammatory response grade (severity): Grade 1 (Mild to moderate): Anything less than severe. Grade 2 (Severe): Confluent or > 3 foci of > 200 cells. inflammatory response stage: Stage 1 (Early): inflammatory cells within chorionic plate vessel llamas and/or umbilical vein vessel wall. Stage 2 (Intermediate): inflammatory cells within umbilical arteries with or without cells in vein wall. Stage 3 (Advanced): Necrotizing funisitis. inflammatory response grade: Grade 1 (Mild to moderate): Anything less than severe as described below. Grade 2 (Severe): Confluent inflammatory cells with attenuation/degene ration of smooth muscle. Daquan MEJIA, Myah Horner. (2020). [place] of Placental Pathology. AFIP Atlases of Tumor and non-Tumor Pathology (Series 5). [place] [employer]; [place], [place]. Adapted from Mukesh RW, Briana O, Ofelia D, Jai F, Isis V, Burak C; Society for Pediatric Pathology, Section, Amniotic Fluid Infection Nosology Committee. Amniotic infection syndrome: nosology and reproducibility of placental reaction patterns. Pediatr Dev Pathol. 2002-Mar;6(5):435-4 8. 07/15/2021 10:21 [facility] Attestation By the signature below, the attending physician certifies that they have 1) personally conducted a gross and/or microscopic examination of the described specimen(s), and/or personally interpreted the results of laboratory testing of the described specimen(s), and 2) personally rendered or confirmed the above diagnosis. 07/15/2021 10:21 [facility] at 1021 Clinical History at 38+4, GDM, port wine fluid; suspect abruption 07/15/2021 10:21 [facility] Gross Description A. Received next in formalin labelled with proper patient identification (initials Y, S) and placenta is a 370 g (trimmed, formalin fixed), 16.4 x 15.2 x 2.3 cm, ovoid hernandez placenta. The surface is blue-posada with a dispersed is vascular pattern. There are no lesions present on the surface. The maternal surface is red-brown with partially torn but complete basal plate. There is minimal adherent blood clot. There is no indentation. The cut surface of the placental parenchyma is beefy red-brown soft. There no discrete lesions present. The membranes are intact, huston, smooth, glistening and translucent with marginate insertion. The point of rupture lies 4.5 cm from the nearest disc margin. There is a 19.5 cm in length and 0.9 cm in diameter three vessel huston-white umbilical cord. It demonstrates eccentric insertion 4.5 cm from the nearest disc margin. There are 3 coils per 10 cm. Railcar Mechanic sections are submitted as follows: BLOCK NDIAYE A1- membrane roll and cross-section of end of cord A2- membrane roll and cross-section of cord 5 cm from insertion site A3- full thickness section of placental disc adjacent to umbilical cord insertion site A 4-A5- two full thickness sections of central 2/3 of placental disc SHREYAS TUTTLE(ASCP) 07/08/2021 15:14 07/15/2021 10:21 [facility] Performing Lab [facility] 10:21 [facility] Scanned Images 07/15/2021 10:21 [facility] Tissue PLACENTAL STRUCTURE / Unknown 07/06/2021 23:45 EST 07/07/2021 23:35 EST [facility] PATHOLOGY ORDERABLES Final Resul t [facility] [address] [place] [address] documented in this encounter Visit Diagnoses Diagnosis Encounter for other general examination documented in this encounter Care Teams State Patrol Officer Relationship Specialty Start Date End Date Unknown, Provider, PCP - General 05/16/17 documented as of this encounter
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
--- OUTSIDE RECORDS SUMMARY | 2024-07-09 13:38 | XMS_ITS | Encounter Summary ---
Author Organization [facility] Address [address] [place] [address] Care Team Providers Care Quality Control Supervisor Name Role Phone Unknown, Provider Primary Care Provider Unava ilable Encounter Details Date Type Department Care Team (Late st Contact Info) Description 05/15/2017 Results Only [facility] [phone] [place] [id number] Social History Tobacco Use Types Packs/Day Years [...] Procedure Name Priority Date/Time Associated Diagnosis Comments PAP TEST- RESULT ONLY Routine 05/15/2017 0:00 EST documented in this encounter Results * PAP TEST- RESULT ONLY (05/15/2017 0:00 EST) Pathology Report: CYTOPATHOLOGY REPORT Reports generated via electronic interface contain original data; however they are lacking the format of the original report. Caution should be taken when reading/interpreti ng unformatted reports. Name: ? HARLEY FRIEDMAN ? Accession #: ? [id number] : ? 1995 (Age: 22) ??F ?Collect Date: ? 05/15/2017 Location: ? [facility] ? Receive Date: ? 05/17/2017 Provider: ?SIRI SANZ WOOD HANDLER Copy to: ? Specimen/Source: ?Pap Test, Cervix, ThinPrep Imaging System with manual evaluation Last Menstrual Period: ? 04/30/2017 Hormonal/Contracep tive Status: ? Oral contraceptives Other: ? First Pap ? SPECIMEN ADEQUACY ? Satisfactory for Evaluation - transformation zone component present GENERAL CATEGORIZATION ? Negative for Intraepithelial Lesion or Malignancy INTERPRETATION ? Reactive cellular changes associated with inflammation present (includes repair). ? Document reviewed and electronically signed by: ? TORIBIO EL MD ? Report Date: ??05/26/2017 15:22 End of Report [facility] 05/15/2017 05/17/2017 us Siri Sanz WOOD HANDLER PATHOLOGY ORDERABLES Final R esult [facility] [address] [place] [address] documented in this encounter Visit Diagnoses Not on filedocumented in this encounter Care Teams Quality Control Supervisor Relationship Specialty Start Date End Date Unknown, Provider, PCP - General 05/16/17 documented as of this encounter
--- OUTSIDE RECORDS SUMMARY | 2024-07-09 13:38 | XMS_ITS | Encounter Summary ---
Author Organization [facility] Address [facility] [place] [address] Care Team Providers Care Food Cooking Machine Operator Name Role Phone Timmy Dailey MD, Alec Primary Care Provider [phone] Encounter Details Date Type Department Care Team (Latest Contact Info) Description 04/26/2016 8:00 AM EST - 04/26/2016 11:59 PM [facility] Hospital [place] [address] Edvin Baldwin MD [facility] OBSTETR[facility] [place] [address] Supervision of high risk in second trimester; Medication exposure during first trimester of Discharge Disposition: Home Social History Tobacco Use Types Packs/Day Years Used Date Smoking Tobacco: Former Cigarettes Smokeless Tobacco: Never Comments Yes Sex and Gender Information Value Date Recorded Sex Assigned at Not on file Gender Identity Not on file Sexual Orientation Not on file documented as of this encounter Medications at Time of Discharge Medication Sig Dispensed Refills Start Date End Date vitamin with uvzowsda-Yc-Eqjz-FA ( VITAMIN) TabletIndications:Super vision of high risk in second trimester,Medication exposure during first trimester of Daily 12/29/2015 ondansetron (ZOFRAN-ODT) 8 mg Tablet, Rapid DissolveIndications:Sup ervision of high risk in second trimester,Medication exposure during first trimester of 0 03/08/201607/22 methylphenidate (CONCERTA) 36 mg Tablet Extended Rel 24 hrIndications:attention -deficit hyperactivity disorder Take 72 mg by mouth every morning. Indications: Attention-Deficit Hyperactivity Disorder 8 documented as of this encounter Plan of Treatment Not on file documented as of this encounter Procedures Procedure Name Priority Date/Time Associated Diagnosis Comments OB FOLLOW UP Routine 04/26/2016 8:32 AM EST Supervision of high risk in second trimester Medication exposure during first trimester of documented in this encounter Results * US OB Follow Up Evaluation (04/26/2016 8:32 AM EST) Anatomical Region Laterality Modality Pelvis, Abdomen Ultrasound 04/26/2016 8:30 AM EST Impressions 04/26/2016 9:01 AM EST 2nd Trimester - Summary Single intrauterine with a gestational age of 22w 1d based on Clinical CHRISTIANO Composite age based on the current ultrasound alone is 22w 1d. Current growth parameters are consistent with prior dating indicating normal growth. Amniotic fluid volume is Appropriate for gestational age. Detailed anatomic evaluation was performed and no structural abnormalities are noted. I ??viewed the images and agree with the above interpretation. ? Edvin Baldwin MD Electronically Signed Final Report ?? 04/26/2016 09:00 am Narrative 04/26/2016 9:01 AM EST OBSTETRICS REPORT ?(Signed Final 04/26/2016 09:00 am) PATIENT INFO: ID #: ? [id number] ?: ??[birth year] (20 yrs) Name: ? HARLEY Saucedo YOUNG ? Visit Date: 04/26/2016 08:30 am PERFORMED BY: Performed By: ? Padmini SWENSON, ?Sonya Attending: ?Edvin Baldwin MD ??Melissa Referred By: ?GERHARD PORRAS CNLudin Location: ? Industry SERVICE(S) PROVIDED: ??UOBFOL - Efw - Growth - [place] - [id number] ? [id number] INDICATIONS: ??f/u growth; anatomy; reevaluation Umb ??cord/straight; E - Coordinates with ??gestational age or more than one week OB HISTORY: Height: ? 5'3 ?Weight: ?? 140 ?BMI: ??24.8 EVALUATION: Num Of Fetuses: ? 1 Heart ? 159 Rate(bpm): Cardiac Activity: ?? Observed, normal rhythm Presentation: ? Cephalic Placenta: ? Posterior P. Cord Insertion: ??Within Normal Limits Amniotic Fluid KARTIK FV: ?Appropriate for gestational age Comment: ?Umbilical cord appears straight in some segments. ? Anterior collection within placenta. --------- BIOMETRY: --------- BPD: ?52.9 ??mm ? G.Age: ?? 22w 0d OFD: ?72.8 ??mm HC: ?202.0 ??mm ? G.Age: ?? 22w 2d AC: ?173.8 ??mm ? G.Age: ?? 22w 2d FL: ? 37.6 ??mm ? G.Age: ?? 22w 0d HUM: ?35.1 ??mm ? G.Age: ?? 22w 0d CER: ?24.5 ??mm ? G.Age: ?? 22w 4d NB: ? 6.05 ??mm LV: ?3.4 ??mm CM: ?4.0 ??mm CI: ?72.7 ??% ? 70 - 86 FL/HC: ? 18.6 ??% ? 18.4 - 20.2 HC/AC: ? 1.16 ?1.06 - 1.25 FL/BPD: ?71.1 ??% ? 71 - 87 FL/AC: ? 21.6 ??% ? 20 - 24 Est. FW: ? 483 ?? gm ? 1 lb 1 oz GESTATIONAL AGE: Clinical CHRISTIANO: ??22w 1d ?CHRISTIANO: ?? 08/29/16 U/S Today: ? 22w 1d ?CHRISTIANO: ?? 08/29/16 Best: ?22w 1d ?? Det. By: ??Clinical CHRISTIANO ? CHRISTIANO: ?? 08/29/16 -------- ANATOMY: -------- Cranium: ?Visualized Cavum: ?Visualized Ventricles: ? Visualized Choroid Plexus: ? Visualized Cerebellum: ? Visualized Posterior Fossa: ?Visualized Nuchal Fold: ?Not evaluated at this gestational age Face: ? Limited views Heart: ?4-chamber view appears normal RVOT: ? Visualized LVOT: ? Visualized Diaphragm: ?Visualized Stomach: ?Visualized Abdomen: ?Within Normal Limits Abdominal Wall: ? Cord Insertion - WNL Cord Vessels: ? 3-vessels- WNL Kidneys: ?Visualized Bladder: ?Visualized Spine: ?Visualized Upper ? Within Normal Limits Extremities: Lower ? Within Normal Limits Extremities: Other: ??Nasal Bone: Present CERVIX UTERUS ADNEXA: Left Ovary Not visualized Right Ovary Not visualized Procedure Note Edvin Baldwin MD - 04/26/2016 OBSTETRICS REPORT (Signed Final 04/26/2016 09:00 am) PATIENT INFO: ID #: [id number] : [birth year] (20 yrs) Name: HARLEY FRIEDMAN Visit Date: 04/26/2016 08:30 am PERFORMED BY: Performed By: Mary Washington RDMS Attending: Edvin Baldwin MD Referred By: GERHARD PORRAS [facility] Location: Industry SERVICE(S) PROVIDED: UOBFOL - Efw - Growth - [place] - [id number] INDICATIONS: f/u growth; anatomy; reevaluation Umb cord/straight; E - Coordinates with gestational age or more than one week OB HISTORY: Height: 5'3 Weight: 140 BMI: 24.8 EVALUATION: Num Of Fetuses: 1 Heart 159 Rate(bpm): Cardiac Activity: Observed, normal rhythm Presentation: Cephalic Placenta: Posterior P. Cord Insertion: Within Normal Limits Amniotic Fluid KARTIK FV: Appropriate for gestational age Comment: Umbilical cord appears straight in some segments. Anterior collection within placenta. --------- BIOMETRY: --------- BPD: 52.9 mm G.Age: 22w 0d OFD: 72.8 mm HC: 202.0 mm G.Age: 22w 2d AC: 173.8 mm G.Age: 22w 2d FL: 37.6 mm G.Age: 22w 0d HUM: 35.1 mm G.Age: 22w 0d CER: 24.5 mm G.Age: 22w 4d NB: 6.05 mm LV: 3.4 mm CM: 4.0 mm CI: 72.7 % 70 - 86 FL/HC: 18.6 % 18.4 - 20.2 HC/AC: 1.16 1.06 - 1.25 FL/BPD: 71.1 % 71 - 87 FL/AC: 21.6 % 20 - 24 Est. FW: 483 gm 1 lb 1 oz GESTATIONAL AGE: Clinical CHRISTIANO: 22w 1d CHRISTIANO: 08/29/16 U/S Today: 22w 1d CHRISTIANO: 08/29/16 Best: 22w 1d Det. By: Clinical CHRISTIANO CHRISTIANO: 08/29/16 -------- ANATOMY: -------- Cranium: Visualized Cavum: Visualized Ventricles: Visualized Choroid Plexus: Visualized Cerebellum: Visualized Posterior Fossa: Visualized Nuchal Fold: Not evaluated at this gestational age Face: Limited views Heart: 4-chamber view appears normal RVOT: Visualized LVOT: Visualized Diaphragm: Visualized Stomach: Visualized Abdomen: Within Normal Limits Abdominal Wall: Cord Insertion - WNL Cord Vessels: 3-vessels- WNL Kidneys: Visualized Bladder: Visualized Spine: Visualized Upper Within Normal Limits Extremities: Lower Within Normal Limits Extremities: Other: Nasal Bone: Present CERVIX UTERUS ADNEXA: Left Ovary Not visualized Right Ovary Not visualized IMPRESSION 2nd Trimester - Summary Single intrauterine with a gestational age of 22w 1d based on Clinical CHRISTIANO Composite age based on the current ultrasound alone is 22w 1d. Current growth parameters are consistent with prior dating indicating normal growth. Amniotic fluid volume is Appropriate for gestational age. Detailed anatomic evaluation was performed and no structural abnormalities are noted. I viewed the images and agree with the above interpretation. Edvin Baldwin MD Electronically Signed Final Report 04/26/2016 09:00 am E Melissa Baldwin MD [facility] OB ORDERAB LES documented in this encounter Visit Diagnoses Diagnosis Supervision of high risk in second trimester Unspecified high-risk Medication exposure during first trimester of Supervision of other high-risk documented in this encounter Care Teams Food Cooking Machine Operator Relationship Specialty Start Date End Date Warner, Alec X, [place] [address] PCP - General 05/04/10 06/17/16 documented as of this encounter
--- OUTSIDE RECORDS SUMMARY | 2024-07-09 13:38 | XMS_ITS | Encounter Summary ---
Author Organization [facility] Address [facility] [place] [address] Care Team Providers Care Steam Station Supervisor Name Role Phone Timmy Dailey MD, Alec Primary Care Provider [phone] Reason for Visit * Reason Comments Ultrasound * Consultation (Routine) - Closed Specialty Diagnoses / Procedures Referred By Des leblanc Referred To Contact Maternal and Medicine / Obstetrics and Gynecology Diagnoses MORPH, ADHD, DEPRESSION, MEDICATIONS Procedures MORPH, ADHD, DEPRESSION, MEDICATIONS Isatu Porras[address] [place] [address] [facility] [address] [place] [address] Referral ID Status Reason Start Date Expiration Date Visits Re quested Visits Authorized [id number] Closed 02/24/2016 02/23/2017 1 1 Encounter Details Date Type Department Care Team (Latest Contact Info) Description 03/30/2016 2:00 PM EDT Procedure visit Obstetrics [place] [address] Edvin Baldwin MD [facility] OBSTETRICS [place] [address] Supervision of high risk in second trimester; Medication exposure during first trimester of Social History Tobacco Use Types Packs/Day Years Used Date Smoking Tobacco: Former Cigarettes Smokeless Tobacco: Never Comments Yes Sex and Gender Information Value Date Recorded Sex Assigned at Not on file Gender Identity Not on file Sexual Orientation Not on file documented as of this encounter Last Filed Vital Signs Vital Sign Reading Time Taken Comments Blood Pressure 102/58 03/30/2016 1:05 PM EDT Pulse - - Temperature - - Respiratory Rate - - Oxygen Saturation - - Inhaled Oxygen Concentration - - Weight 63.5 kg (140 lb) 03/30/2016 1:05 PM EDT Height 161.3 cm (5' 3.5) 03/30/2016 1:05 PM EDT Body Mass Index 24.41 03/30/2016 1:05 PM EDT documented in this encounter Progress Notes * Edvin Baldwin MD - 03/30/2016 2:00 PM EDT Diagnosis/Maternal Medicine Consult Note Harley Friedman is a 20 y.o. year old female who is at 18w2d gestation. She is seen in consultation at the request of Isatu Porras CNM for evaluation of anatomy. She was seen today formaternal- medicine consultation and ultrasound evaluation. Review of Systems Constitutional:feels well Movement: normal Contractions: none Leaking: None Bleeding: None Patient Active Problem List Diagnosis Date Noted ??? Major depressive disorder, recurrent episode, moderate (DEPRESSION) 05/15/2014 ??? YORK (headache) 02/13/2014 ??? ADHD (attention deficit hyperactivity disorder), combined type 02/13/2014 Past Medical History Diagnosis Date ??? ADHD (attention deficit hyperactivity disorder) ??? Major depression ??? Premature Born 4 months early Past Surgical History Procedure Laterality Date ??? Tonsillectomy and adenoidectomy ??? Patent ductus arterious ligation No family history on file. Social History Occupational History ??? Not on file. Social History Main Topics ??? Smoking status: Former Smoker Types: Cigarettes ??? Smokeless tobacco: Never Used ??? Alcohol use Not on file ??? Drug use: Not on file ??? Sexual activity: Not on file OB History Para Term AB TAB SAB Ectopic Multiple Living 1 # Outc Date GA Lbr Clif/2nd Wgt Sex Del Anes PTL Lv 1 Current Current Outpatient Prescriptions Medication Sig Dispense Refill ??? vitamin with frdgqmro-Ux-Otwn-FA ( VITAMIN) Tablet Daily ??? ondansetron (ZOFRAN-ODT) 8 mg Tablet, Rapid Dissolve 0 ??? methylphenidate (CONCERTA) 36 mg Tablet Extended Rel 24 hr Take 72 mg by mouth every morning. Indications: Attention-Deficit Hyperactivity Disorder No current facility-administered medications for this visit. No Known Allergies Ultrasound Date: 03/30/2016 Amniotic fluid volume normal Presentation breech Placenta posterior ; straight umbilical cord Growth appropriate for gestational age anatomy appears within normal limits; limited views of spine and feet Physical Exam BP 102/58 Ht 161.3 cm (5' 3.5) Wt 63.5 kg (140 lb) BMI 24.41 kg/m2 General: alert, well appearing, in no apparent distress HEENT: normocephalic, atraumatic Abdomen: Soft, nontender Extremities: no edema Neurologic:alert, oriented, normal speech, no focal findings or movement disorder noted Psychiatric: Affect is happy; easily distractible Assessment and Recommendations: 20 y.o. year old female at 18w2d weeks gestation, referred for counseling regarding medicationuse in and history of a patent ductus arteriosus. Incomplete evaluation of the anatomy today, due to position; I recommend return to [facility] in 4 weeks for reevaluation, and have taken the liberty of arranging that appointment. Ms. Friedman was born at 26 weeks gestational age. The PDA was a direct result of her prematurity, andis not a congenital heart defect. echocardiogram is not indicated. The use of methylphenidate (Concerta) is not expected to increase the risk of congenital anomalies.A registry for psychiatric medications, including this one, has been organized at the [facility]. Contact the registry at [email or web address] It would be prudent to consider growth ultrasound in the third trimester. The patient was counseled that straight umbilical cords, when seen with other malformations, are associated with an increased risk of aneuploidy. No additional malformations were seen today, therefore the patient's risk of aneuploidy is unchanged. Typically straight umbilical cord's will coil by the early third trimester. However if they remain straight throughout the , they are associated with an increased risk of poor growth, labor intolerance and stillbirth. Despite these increased risks, the majority of pregnancies have normal outcomes. A follow up study at 32 weeks gestation for UC coiling and growth should be considered. If the UC is still mostly straight, th en 2x weekly NST should be considered, along with another ultrasound at 37 weeks for growth and UC coiling. I appreciate the opportunity to be involved in this patients care, and am available if further questions should arise. Edvin BALDWIN MD 03/30/2016 Cc: Isatu Porras, [facility] [address] [place] [address] [place] [address] , with copy of ultrasound report documented in this encounter Plan of Treatment Not on file documented as of this encounter Results * US OB Follow [...] 09:00 am) PATIENT INFO: ID #: ? [id number] ?: ??[birth year] (20 yrs) Name: ? HARLEY Jeff T YOUNG ? Visit Date: 04/26/2016 08:30 am PERFORMED BY: Performed By: ? Padmini SWENSON, ??Mary Attending: ?Edvin Baldwin MD ??Melissa Referred By: ?ISATU PORRAS CNM Location: ? [facility] SERVICE(S) PROVIDED: ??[facility]JIM[facility] - Efw - Growth - [place] - [id number] ? [id number] INDICATIONS: ??f/u growth; anatomy; reevaluation Umb ??cord/straight; [...] 04/26/2016 09:00 am) PATIENT INFO: ID #: [id number] : [birth year] (20 yrs) Name: HARLEY FRIEDMAN Visit Date: 04/26/2016 08:30 am PERFORMED BY: Performed By: Mary Washington RDMS Attending: Edvin Baldwin MD Referred By: ISATU PORRAS [facility] Location: [facility] SERVICE(S) PROVIDED: UOBFOL - Efw - Growth - [place] - [id number] INDICATIONS: f/u growth; anatomy; reevaluation Umb cord/straight; [...] Final Report 04/26/2016 09:00 am E Melissa Badlwin MD IMG US OB ORDERAB LES documented in this encounter Visit Diagnoses Diagnosis Supervision of high risk in second trimester Unspecified high-risk Medication exposure during first trimester of Supervision of other high-risk Supervision of high risk in second trimester Unspecified high-risk Medication exposure during first trimester of Supervision of other high-risk documented in this encounter Care Teams Steam Station Supervisor Relationship Specialty Start Date End Date Alec Warner MD [address] [place] [address] [place] [address] PCP - General 05/04/10 06/17/16 documented as of this encounter
--- OUTSIDE RECORDS SUMMARY | 2024-07-09 13:38 | XMS_ITS | Encounter Summary ---
Author Organization [facility] Address [address] [place] [address] Care Team Providers Care Fire Systems Inspector Name Role Phone Unknown, Provider Primary Care Provider Unava ilable Encounter Details Date Type Department Care Team (Late st Contact Info) Description 12/22/2020 Lab Requisition [facility] Pathology & Laboratory Medicine - [address] [address] Outr Resulting Lab, Provider Social History Tobacco Use Types Packs/Day Years [...] Procedure Name Priority Date/Time Associated Diagnosis Comments CHLAMYDIA/N. GONORRHOEAE AMPLIFIED NUCLEIC ACID Routine 12/22/2020 14:15 EDT documented in this encounter Results * CHLAMYDIA/N. GONORRHOEAE AMPLIFIED RNA (12/22/2020 14:15 EDT) Neisseria gonorrhoeae Result Negative Negative 12/23/2020 15:20 EDT [facility] Chlamydia trachomatis Result Negative Negative 12/23/2020 15:20 EDT [facility] Swab ENTIRE WALL OF CERVIX / Unknown 12/22/2020 14:15 EDT 12/22/2020 22:07 EDT us Provider Outr Resulting Lab MICROBIOLOGY - GENER AL ORDERABLES Final Result [facility] [address] [place] [address] documented in this encounter Visit Diagnoses Not on filedocumented in this encounter Care Teams Fire Systems Inspector Relationship Specialty Start Date End Date Unknown, Provider, PCP - General 05/16/17 documented as of this encounter
--- OUTSIDE RECORDS SUMMARY | 2024-07-09 13:38 | XMS_ITS | Encounter Summary ---
Author Organization [facility] Address [facility] [place] [address] Care Team Providers Care Heddle Machine Operator Name Role Phone Timmy Dailey MD, Alec Primary Care Provider [phone] Encounter Details Date Type Department Care Team (Latest Contact Info) Description 02/13/2014 2:42 PM EDT - 02/13/2014 11:59 PM EDT [place] [address] Yenifer Nance MD Smiga, Emily Noland MD Depression Discharge Disposition: Home Social History Tobacco Use Types Packs/Day Years Used Date Smoking Tobacco: Light Smoker Cigarettes Sex and Gender Information Value Date Recorded Sex Assigned at Not on file Gender Identity Not on file Sexual Orientation Not on file documented as of this encounter Medications at Time of Discharge Medication Sig Dispensed Refills Start Date End Date FLUoxetine (PROZAC) 20 mg TabletIndications:keyana r depressive disorder Take 20 mg by mouth daily. Indications: Major Depressive Disorder 05/15/2014 methylphenidate (CONCERTA) 36 mg Tablet Extended Rel 24 hrIndications:attentio n-deficit hyperactivity disorder Take 72 mg by mouth every morning. Indications: Attention-Deficit Hyperactivity Disorder 01/12/2018 methylphenidate (RITALIN) 10 mg TabletIndications:atte ntion-deficit hyperactivity disorder Take 10 mg by mouth See Admin Instructions. Daily at 4pm Indications: Attention-Deficit Hyperactivity Disorder 03/30/2016 cyproheptadine (PERIACTIN) 4 mg TabletIndications:head ache Take 4 mg by mouth daily. Indications: headache 03/30/2016 FLUoxetine (PROZAC) 10 mg Tablet Take 1 tablet by mouth daily. Take with 20mg pill every day for 30mg total 30 tablet 2 02/13/2014 05/15/2014 documented as of this encounter Plan of Treatment Not on file documented as of this encounter Procedures Procedure Name Priority Date/Time Associated Diagnosis Comments HEMOGRAM Routine 02/13/2014 2:49 PM EDT Depression TSH Routine 02/13/2014 2:49 PM EDT Depression BASIC METABOLIC PANEL Routine 02/13/2014 2:49 PM EDT Depression documented in this encounter Results * Basic Metabolic Panel (non-fasting) (02/13/2014 2:49 PM EDT) [facility] Glucose 88 60 - 199 mg/dL CERNER MILLENNIUM Comment:Diabetes: >=200 mg/d L plus symptoms Blood Urea Nitrogen 16 10 - 20 mg/dL CERNER MILLENNIUM Creatinine 0.68 0.20 - 0.70 mg/dL CERNER MILLENNIUM Comment: Please note that the pediatric reference intervals supplied above were not validated at [facility]. Results from pediatric patients should be interpreted in conjunction to the patient's age, height and muscle mass. Sodium 138 135 - 145 mmol/L CERNER MILLENNIUM Potassium 3.8 3.5 - 5.0 mmol/L CERNER MILLENNIUM Comment: Please note: ??Patients with WBC >100,000 may have falsely elevated Potassium levels. ??For accurate Potassium quantification in these patients send serum separator tube (gold top) for subsequent determinations. ??Contact the Clinical Chemistry Laboratory if there are any questions. Chloride 102 98 - 107 mmol/L CERNER MILLENNIUM Carbon Dioxide 25 22 - 31 mmol/L CERNER MILLENNIUM Anion Gap 11 5 - 15 mmol/L CERNER MILLENNIUM Calcium 9.2 8.5 - 10.5 mg/dL CERNER MILLENNIUM Est Glomerular Filtration Rate See note >=60 CERNER MILLENNIUM Comment: Calculated GFR not appropriate for patients less than 18 years of age. This estimated GFR (eGFR) value was calculated using the MDRD equation which has been validated on patients between the ages of 18 and 70. The MDRD should not be used to assess kidney function in patients < 18 years of age or in patients with extremes of body mass, or in patients with acute kidney failure. This value should be multiplied by 1.2 for patients. For further information please copy and paste the following links into your internet browser. [email or web address] [email or web address] Blood specimen (specimen) 02/13/2014 2:49 PM EDT 02/13/2014 3:06 PM EDT Narrative Resulting Agency Comment Spec In Lab Emily Livingston MD CHEMISTRY ORDERABLES Performing Organization Address [facility] Co de Phone Number CERNER MILLENNIUM * TSH (02/13/2014 2:49 PM EDT) Thyroid Stimulating Hormone 1.12 0.27 - 4.20 mcIU/mL CERNER MILLENNIUM Blood specimen (specimen) 02/13/2014 2:49 PM EDT 02/13/2014 3:06 PM EDT Narrative Resulting Agency Comment Spec In Lab Emily Livingston MD CHEMISTRY ORDERABLES Performing Organization Address [facility] Co de Phone Number CERNER MILLENNIUM * Hemogram (02/13/2014 2:49 PM EDT) White Blood Cell 9.4 4.5 - 13.0 x10(3)/mcL CERNER MILLENNIUM Red Blood Cell 4.52 4.10 - 5.10 x10(6)/mcL CERNER MILLENNIUM Hemoglobin 13.3 12.0 - 16.0 gm/dL CERNER MILLENNIUM Hematocrit 40.6 36.0 - 46.0 % CERNER MILLENNIUM Mean Cell Volume 89.8 76.0 - 98.0 fL CERNER MILLENNIUM Mean Cell Hemoglobin 29.4 25.0 - 35.0 pg CERNER MILLENNIUM Mean Cell Hemoglobin Concentration 32.8 32.0 - 36.5 gm/dL CERNER MILLENNIUM Platelet 267 145 - 370 x10(3)/mcL CERNER MILLENNIUM RDW Standard Deviation 43.4 35.0 - 46.0 fL CERNER MILLENNIUM RDW coefficient of variation 13.1 10.9 - 14.4 % [facility] Mean Platelet Volume 9.9 9.0 - 12.0 fL [facility] Blood specimen (specimen) 02/13/2014 2:49 PM EDT 02/13/2014 3:06 PM EDT Narrative Resulting Agency Comment Spec In Lab Emily Livingston MD HEMATOLOGY ORDERABLE S [facility] documented in this encounter Visit Diagnoses Diagnosis Depression Depressive disorder, not elsewhere classified documented in this encounter Care Teams Heddle Machine Operator Relationship Specialty Start Date End Date Alec Warner MD [address] [place] [address] [place] [address] PCP - General 05/04/10 06/17/16 documented as of this encounter
--- OUTSIDE RECORDS SUMMARY | 2024-07-09 13:38 | XMS_ITS | Encounter Summary ---
Author Organization [facility] Address [address] [place] [address] Care Team Providers Care News Intern Name Role Phone Unknown, Provider Primary Care Provider Unava ilable Encounter Details Date Type Department Care Team (Late st Contact Info) Description 02/27/2023 Lab Requisition [facility] Pathology & Laboratory Medicine - [facility] [address] [place] [address] Outr Resulting Lab, Provider Social History Tobacco [...] Procedure Name Priority Date/Time Associated Diagnosis Comments SYPHILIS SEROLOGY Routine 02/27/2023 10: 50 EDT HEPATITIS C AB W REFLEX TO HCV RNA BY PCR Routine 02/27/2023 10:50 EDT HERPES SIMPLEX VIRUS (HSV) TYPE 1 & 2 AB, IGG Routine 02/27/2023 10:50 EDT documented in this encounter Results * SYPHILIS SEROLOGY (02/27/2023 10:50 EDT) Syphilis Serology Negative Negative 02/28/2023 10:52 EDT [facility] Blood VENOUS BLOOD / Unknown 02/27/2023 10:50 EDT 02/27/2023 21:57 EDT us Provider Outr Resulting Lab IMMUNOLOGY AND SEROL OGY ORDERABLES Final Result Performing Organization Address City/[facility]/ZIP Co de Phone Number [facility] [address] [place] [address] * HEPATITIS C AB W REFLEX TO HCV RNA BY PCR (02/27/2023 10:50 EDT) Hep C Antibody Negative Negative 02/28/2023 10:16 EDT [facility] Blood VENOUS BLOOD / Unknown 02/27/2023 10:50 EDT 02/27/2023 21:57 EDT us Provider Outr Resulting Lab CHEMISTRY & BLOOD GA S ORDERABLES Final Result Performing Organization Address [facility] Co de Phone Number [facility] [address] [place] [address] * HERPES SIMPLEX VIRUS (HSV) TYPE 1 & 2 AB, IGG (02/27/2023 10:50 EDT) Pathologist [facility] HSV Type 1 Ab, IgG Negative Negative 03/01/2023 9:27 EDT [facility] Comment: No detectable antibodies to HSV 1 were found. A negative result generally indicates that the patient has not been infected, but does not always rule out acute HSV infection. If clinical exposure to HSV is suspected despite a negative finding a second sample should be collected and tested no less than 4-6 weeks later. HSV Type 2 Ab, IgG Negative Negative 03/01/2023 9:27 EDT [facility] Comment: No detectable antibodies to HSV 2 were found. A negative result generally indicates that the patient has not been infected, but does not always rule out acute HSV infection. If clinical exposure to HSV is suspected despite a negative finding a second sample should be collected and tested no less than 4-6 weeks later. Blood VENOUS BLOOD / Unknown 02/27/2023 10:50 EDT 02/27/2023 21:33 EDT us Provider Outr Resulting Lab IMMUNOLOGY AND SEROL OGY ORDERABLES Final Result Performing Organization Address [facility] Co de Phone Number [facility] [address] [place] [address] documented in this encounter Visit Diagnoses Not on filedocumented in this encounter Care Teams News Intern Relationship Specialty Start Date End Date Unknown, Provider, PCP - General 05/16/17 documented as of this encounter
--- OUTSIDE RECORDS SUMMARY | 2024-07-09 13:38 | XMS_ITS | Encounter Summary ---
[place] [address] Care Team Providers Care Email Campaign Manager Name Role Phone Timmy Dailey MD, Jimmy Primary Care Provider [phone] Reason for Visit * Reason Comments Major Depressive Disorder Encounter Details Date Type Department Care Team (Latest Contact Info) Description 02/13/2014 1:00 PM EDT Office Visit Psychiatry [place] [address] Yenifer Nance MD Depression (Primary Dx); Major depressive disorder, recurrent episode, moderate; ADHD [...] Sign Reading Time Taken Comments Blood Pressure 120/63 02/13/2014 1:50 PM EDT Pulse 81 02/13/2014 1:50 PM EDT Temperature - - Respiratory Rate - - Oxygen Saturation - - Inhaled Oxygen Concentration - - Weight 56.2 kg (124 lb) 02/13/2014 1:50 PM EDT Height 161.3 cm (5' 3.5) 02/13/2014 1:50 PM EDT Body Mass Index 21.62 02/13/2014 1:50 PM EDT Body Mass Index Percentile 55.27% 02/13/2014 1:5 0 PM EDT Growth Chart[facility]Girls, 2- 20 Years) documented in this encounter Patient Instructions * Patient Instructions* Yenifer Nance MD - 02/13/2014 2:26 PM EDT Increase fluoxetine to 30mg daily for 2-4 weeks, if not feeling any better, then increase dose of fluoxetine to 40mg daily Get your lab work done (CBC, BMP, and TSH) to rule out other medical causes of depressed mood documented in this encounter Progress Notes * Emily Livingston MD - 02/15/2014 10:18 AM EDT I have seen the patient and reviewed Dr. Nance's above history and I agree with the details aswritten. The assessment and plan were formulated in discussion with me and I agree with them as documented. Aruna 18 yo, ex-premie, senior with MDE, ADHD possible ODD. Lives with mom and young adult male. Some self-injury, scratching. Concerta 72mg, methylphenidate 10mg, fluoxetine 20mg, cyproheptadine 4mg (YORK?). detention therapist. Father has dropped off in level of contact, described as very rejecting. Had brother who as before Aruna born. Referred in August after threatened to cut wrist. Agree with plan to titrate fluoxetine and check basic labs, TSH. 296.23 * Yenifer Nance MD - 02/13/2014 2:39 PM EDT This patient was seen by and staffed by Dr. Yara MD during today's visit. DIAGNOSTIC INTERVIEW CPT CODE 98528/41142; ZENAIDA 5100 Patient Name: Aruna Friedman : 1995 Encounter Date: 02/13/2014 Time Spent: 95 mins [place] [facility] Primary Care Provider: JIMMY LY MD Referred by: Patient's therapist Information Source: Child and parent interviews and rating scales, chart review, interview with mother and child separately. Guardian(s): Daniela Friedman (mother) Identifying Information/Chief Complaint: Aruna Friedman is a 18 y.o. 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 The patient's chief complaint is her level of depression and irritability. History of Present Illness: Aruna was first diagnosed and treated for ADHD starting about the age of 6 or 7. She endorses having depressive symptoms since about 8th grade, which her mother confirms. She was referred for evaluation back in July of 2013 after she made a suicidal gesture to cut her wrist with a knife. The incident was provoked by her mother taking away her cell phone once she discovered Aruna had been sending inappropriate pictures to people she did not know. Aruna denies other times of being suicidaland any other plans to kill herself. She endorses impulsively saying at times that she would be better off , usually when frustrated and angry. She has a history of self injurious behavior by scra tching/rubbing her arms with rocks or her keys. She feels that hurting herself is better than taking it out on others when she is upset, though she admits to regularly taking out her emotions on others, especially her mother. She denies any current suicidal thoughts and [facility]. Aruna endorses her symptoms have gotten gradually worse over the years, especially her anger. She began therapy about this time and has continued with the same therapist, Vanessa Dunlap [facility]. Aruna finds therapy helpful, but is not sure if her fluoxetine medication has been helpful. Her mother feels all of her medications have been helpful for her symptoms, but her depression symptoms continue. Aruna attributes her symptoms of depression and irritability in part to her poor relationship with her father and being stressed about school, conflict with her mother, and arguments with her cousins when they visit. Aruan endorses the following symptoms: Mood: Dysphoric mood (irritable or sad) all of the time, hopelessness that she will feel better, anhedonia (especially no longer enjoys basketball), apathy, boredom with her life, decreased interest in food, difficulty falling and staying asleep, poor self esteem and hating herself at times, impaired concentration and memory, indecisiveness. Endorses distractibility, talkativeness, irritability She denies weight loss, feelings of helplessness, inappropriate guilt, and suicidal ideation. Denies episodes of sustained euphoria, grandiosity, decreased need for sleep, racing thoughts, hypersexuality, risk taking behavior Attention Deficit: Inattention: makes careless mistakes, difficulty sustaining attention, not listening when directly spoken to, losing things, not finishing tasks, avoiding tasks needing sustained mental effort, difficulty with organizing activities, and being easily distracted by environmental stimuli Hyperactive: fidgets, difficulty doing quite activities, talks too much, needs to get out of chair and walk around Oppositional: Argues with adults, loses temper, deliberately annoys others, is angry/resentful, spiteful or wantsto get even Conduct: Denies any symptoms consistent with conduct disorder Anxiety: Endorses wanting to do things right and getting upset if she makes a mistake and someoneyells at her. Worried about what to do for her senior project. Denies chronic worry, panic attacks, agoraphobia, obsessions/compulsions, social phobia. Psychosis: endorses being able to talk to her relatives and sometimes having them talk back, occasionally sees a shadow that she thinks might be a relative. Denies paranoia, ideas of reference. Trauma: endorses being upset still by her father's rejection of her and the of a close Aunt and Uncle about 1 year ago. Denies abuse/neglect in childhood, trauma related nightmares or flashbacks, hypervigilance, avoidance Intake Packet Scoring Summary: + Parent A Patient CIS Impairment: >14 20 [place] Inattention >5 8 Hyperactivity >5 0 ODD >3 6 CD0 >2 0 Aggression >0 0 Anx/Depr >2 2 MFQ Depression >7 15 21 Suicidality >0 3 4 PHQ-9 Depression >9 6 21 MDD (Criterion A) Yes Y Y MDD (>=Somewhat) >4 1 8 MDD (Degree) Yes Yes Y Suicidality >0 1 3 MDQ: Manic Symptoms >4 6 8 Simultaneous? Yes Y Y >=Moderate Degree Yes Y Y Psychosis >0 0 3 ADS Anxiety >3 3 5 OCD >0 1 2 TESI Trauma >0 1 1 CRAFFT Alcohol/Drugs >0 2 AQ Autism >5 7 Past Psychiatric History: Prior diagnoses: Major Depressive Disorder ADHD Past hospitalization and location: none Suicide attempts: 1 gesture - held knife up to her wrist in Jun 2013 after her mom took away her cell phone Past psychiatric medications (include dose, length of use, response, reason for stopping): ?? Fluoxetine - still taking, helpful at 20mg, no side effects ?? Concerta - helpful for ADHD symptoms up to 72mg ?? Cyproheptadine 4mg daily taken for headaches ?? Adderall - took years ago, mom unsure why med was changed Past counseling/therapy: currently seeing Vanessa Dunlap [facility] for several years Substance Use History/Treatment: Has tried cigarettes - doesn't smoke regularly Has tried alcohol - one drink at the most every few weeks. Denies any drug use Past Medical History: Patient Active Problem List Diagnosis Date Noted ??? YORK (headache) 02/13/2014 ??? ADHD (attention deficit hyperactivity disorder), combined type 02/13/2014 Past Medical History Diagnosis Date ??? Premature Born 4 months early ??? Major depression ??? ADHD (attention deficit hyperactivity disorder) Past Surgical History Procedure Date ??? Tonsillectomy and adenoidectomy ??? Patent ductus arterious ligation There is no known history of a structural heart problem or syncope. There is no known history of serious head injury or seizures. Medications: Current Outpatient Prescriptions Medication Sig Dispense Refill ??? FLUoxetine (PROZAC) 20 mg Tablet Take 20 mg by mouth daily. Indications: Major Depressive Disorder ??? methylphenidate (CONCERTA) 36 mg Tablet Extended Rel 24 hr Take 72 mg by mouth every morning. Indications: Attention-Deficit Hyperactivity Disorder ??? methylphenidate (RITALIN) 10 mg Tablet Take 10 mg by mouth See Admin Instructions. Daily at 4pmIndications: Attention-Deficit Hyperactivity Disorder ??? cyproheptadine (PERIACTIN) 4 mg Tablet Take 4 mg by mouth daily. Indications: headache ??? FLUoxetine (PROZAC) 10 mg Tablet Take 1 tablet by mouth daily. Take with 20mg pill every day for 30mg total 30 tablet 2 Allergies: No Known Allergies Potential Side Effects and/or Review of Systems: Constitutional: Denies fatigue or sedation Cardiovascular: Denies chest pains or dizziness Musculoskeletal: Denies weakness GI: Denies constipation, diarrhea, nausea, or vomiting; appetite is fair Genitourinary: Denies dysuria, frequency of urination, Neurological: Denies weakness, seizures, numbness, tics, Psychiatric: See above Endocrine: Denies cold or heat intolerance, Hematologic/Lymphatic: No bruising, no recent infections Allergic/Immunological: see today's reviewed allergy list Family History: Maternal Aunt with depression, history of alcohol abuse Several maternal family members with likely undiagnosed depression Maternal grandfather - suicide There is no reported history of early in immediate family members, or known deaths at an early age that were cardiovascular in origin. Social Developmental History: This patient's mom's with her was notable for Aruna being 4 months premature. She weighed only 1 lb 10 oz and needed surgery for patent ductus arteriosus. Her mother could not recall when she reached her early developmental milestones, including first words, first sentences, and walking.Toilet training was reached by age 4. Aruna's parents in 2003 when she was about 8 years old. Her father lives nearby, but they are not close. Aruna lives with her mother and recent addition to the household of a young man sundar Gil. Her relationship is fair with her mother, very poor with her father. She has no siblings. Her mother had an older son who at 2 years before Aruna was born. The relationship between her parents is reportedly strained and poor. Recent grades in school: passing, Aruna could not say exactly what they were Her worst problems in school are inattention, difficulty focusing. she has received special accommodations through at the the school through an IEP plan including help in most subjects Has few friends and difficulty making friends, but denies being bullied. Prefers to spend time alone. Her reported interests include basketball, video games Patient denies being sexually active but has had several boyfriends. Vital Signs Blood pressure 120/63, pulse 81, height 161.3 cm (5' 3.5), weight 56.246 kg (124 lb). Mental Status Exam: This is a 18 y.o. female who appears her stated age. Activity level is normal. There are no overt tics or articulation problems. Mood is depressed and irritable. Affect is constricted, mood congruent. Sensorium is alert and oriented X 4. Attention/concentration: intact, able to follow conversation,needs no redirection. Intelligence is fair. Thought processes are goal directed, logical, and coherent.. She denies delusional or obsessive thoughts, though endorses being able to talk with relatives. There are no overt auditory or visual hallucinations observed. Denies suicidal or homicidal ideations. Her insight is fair, while her judgment is fair. Pertinent Diagnostic Testing: Recent Results (from the past 72 hour(s)) HEMOGRAM Component Value Range WBC 9.4 4.5 - 13.0 x10(3)/mcL RBC 4.52 4.10 - 5.10 x10(6)/mcL Hemoglobin 13.3 12.0 - 16.0 gm/dL Hematocrit 40.6 36.0 - 46.0 % MCV 89.8 76.0 - 98.0 fL MCH 29.4 25.0 - 35.0 pg MCHC 32.8 32.0 - 36.5 gm/dL Platelets 267 145 - 370 x10(3)/mcL RDWSD 43.4 35.0 - 46.0 fL RDWCV 13.1 10.9 - 14.4 % MPV 9.9 9.0 - 12.0 fL TSH Component Value Range TSH 1.12 0.27 - 4.20 mcIU/mL BASIC METABOLIC PANEL (NON-FASTING) Component Value Range Glucose Lvl 88 60 - 199 mg/dL BUN 16 10 - 20 mg/dL Creatinine 0.68 0.20 - 0.70 mg/dL Sodium 138 135 - 145 mmol/L Potassium 3.8 3.5 - 5.0 mmol/L Chloride 102 98 - 107 mmol/L CO2 25 22 - 31 mmol/L Anion Gap 11 5 - 15 mmol/L Calcium 9.2 8.5 - 10.5 mg/dL Estimated GFR See note >=60 Impression: Aruna Friedman is a 18 y.o. female with Major Depressive Disorder, recurrent, moderate and attention deficit and hyperactivity disorder, combined type, oppositional defiant disorder who was referred for evaluation after suicidal gesture. Notable in Aruna's history are her family history of mood problems, poor relationship with her father, psychosocial stressors of her mom losing her job and addition of a new male living in the household. Aruna appears to have responded well to stimulant medications for her ADHD, but only partially to Fluoxetine for depression and irritability symptoms. Wediscussed increasing her dose of fluoxetine to 30mg daily for at least 2 weeks and then considering increasing it again to 40mg daily if no benefit was noted from the first increase. She was encouraged to continue outpatient therapy and release was obtained to consult with her outpatient therapist.We also discussed obtaining basic labs to rule out other causes of dysphoria and irritability. No evidence of hypothyroidism, hypoglycemia, acute infection, anemia, or electrolyte imbalance was found. Current level of severity on CGI-S (1-normal, 2-borderline mentally ill, 3- mildly ill, 4-moderatelyill, 5-markedly ill, 6-severely ill, 7-extremely ill): 5 Plan: - We discussed her potential diagnoses above. - Continue therapy - Have attempted to contact the patient's therapist, message was left - Increase fluoxetine to 30mg daily, consider increase to 40mg daily if no benefit after 2 weeks - Continue Concerta 72mg daily, ritalin 10mg in the afternoon, and cyproheptadine 4mg daily - Labs: CBC, BMP, TSH - Copy of this documentation sent to the patient's PCP per her mother's request. - Follow up in 2 months - Business card with my contact information and the [facility] hr crisis line was also provided -The parent was advised to contact me sooner if there were any concerns that family felt needed to be addressed prior to the next appointment with me. We also discussed an after hours safety plan including having the patient taken to the hospital emergency room for an assessment if there were behaviors or thoughts that suggested she was a danger to herself. documented in this encounter Plan of Treatment Not on file documented as of this encounter Results * Basic Metabolic Panel (non-fasting) (02/13/2014 2:49 PM EDT) [facility] Glucose 88 60 - 199 mg/dL CERNER MILLENNIUM Comment:Diabetes: >=200 mg/d L plus symptoms Blood Urea Nitrogen 16 10 - 20 mg/dL CERNER MILLENNIUM Creatinine 0.68 0.20 - 0.70 mg/dL CERNER MILLENNIUM Comment: Please note that the pediatric reference intervals supplied above were not validated at [facility] Results from pediatric patients should be interpreted [...] the following links into your internet browser. [email or web address] Blood specimen (specimen) 02/13/2014 2:49 PM EDT 02/13/2014 3:06 PM EDT Narrative Resulting Agency Comment Spec In Lab Emily Livingston MD CHEMISTRY ORDERABLES Performing Organization Address [facility] de Phone Number [facility] Drill MapIUM * TSH (02/13/2014 2:49 PM EDT) Thyroid Stimulating Hormone 1.12 0.27 - 4.20 mcIU/mL CERNER MILLENNIUM Blood specimen (specimen) 02/13/2014 2:49 PM EDT 02/13/2014 3:06 PM EDT Narrative Resulting Agency Comment Spec In Lab Emily Livingston MD CHEMISTRY ORDERABLES Performing Organization Address [facility] Co de Phone Number CERMENDEZ RealTargetingENNIUM * Hemogram (02/13/2014 2:49 PM EDT) White [...] of variation 13.1 10.9 - 14.4 % CERNER MILLENNIUM Mean Platelet Volume 9.9 9.0 - 12.0 fL CERNER MILLENNIUM Blood specimen (specimen) 02/13/2014 2:49 PM EDT 02/13/2014 3:06 PM EDT Narrative Resulting Agency Comment Spec In Lab Emily Livingston MD HEMATOLOGY ORDERABLE S GARY LOOMIS documented in this encounter Visit Diagnoses Diagnosis Depression- Primary Depressive disorder, not elsewhere classified Major depressive disorder, recurrent episode, moderate ADHD (attention deficit hyperactivity disorder), combined type Attention deficit disorder with hyperactivity documented in this encounter Care Teams Email Campaign Manager Relationship Specialty Start Date End Date Jimmy Ly [place] [address] PCP - General 05/04/10 06/17/16 documented as of this encounter
--- OUTSIDE RECORDS SUMMARY | 2024-07-09 13:38 | XMS_ITS | Referral Summary ---
Author Organization [facility] Address [address] [place] [address] Care Team Providers Care Science Technicians Name Role Phone Unknown, Provider MD Primary Care Provider Unava ilable Social History Tobacco Use Types Packs/Day Years Used Date Smoking Tobacco: Never Assessed Comments Unknown Sex and Gender Information Value Date Recorded Sex Assigned at Not on file Legal Sex Female 15:02 EST Gender Identity Not on file Sexual Orientation Not on file Plan of Treatment Not on file Procedures Procedure Name Priority Date/Time Associated Diagnosis Comments HEPATITIS C AB W REFLEX TO HCV RNA BY PCR Routine 02/27/2023 10:50 EDT from Last 3 Months or Most Recently Relevant to Health Maintenance Results * HEPATITIS C AB W REFLEX TO HCV RNA BY PCR (02/27/2023 10:50 EDT) Hep C Antibody Negative Negative 02/28/2023 10:16 EDT [facility] Blood VENOUS BLOOD / Unknown 02/27/2023 10:50 EDT 02/27/2023 21:57 EDT us Provider Outr Resulting Lab CHEMISTRY & BLOOD GA S ORDERABLES Final Result [facility] [address] [place] [address] from Last 3 Months or Most Recently Relevant to Health Maintenance Insurance MEDICAID [employer] [place] Care Teams Science Technicians Relationship Specialty Start Date End Date Unknown, Provider, PCP - General 05/16/17
--- OUTSIDE RECORDS SUMMARY | 2024-07-09 13:38 | XMS_ITS | Encounter Summary ---
Author Organization [facility] [place] [address] Care Team Providers Care Driveway Attendant Name Role Phone Unknown Primary Care Provider Unavailabl e Reason for Visit * Auth/Cert Specialty Diagnoses / Procedures Referred By Des t Referred To Contact Diagnoses premature rupture of membranes (PPROM) with unknown onset of labor 33 AND 5 WKS PROM Procedures EMERGENCY Referral ID Status Reason Start Date Expiration Date Visits Re quested Visits Authorized [id number] 1 1 Encounter Details Date Type Department Care Team (Late st Contact Info) Description 07/20/2016 12:44 AM EST Anesthesia [place] [id number] Rob Brown MD Toth, Adam R, [facility] [place] [address] Anesthesia Record Procedure Summary Procedure Name Responsible Anesthesiologist Anesthesia Start Time Anesthesia Stop Time Labor Analgesia (proc) Events No events on file. Meds * Agents No agents on file. * Blood No blood administrations on file. Lines, Drains, and Airways Type Details Placement Removal (RETIRED) Urethral Catheter 05/06/18; 1425 04/13 10/27 142 by Emily Garcia, RN documented in this encounter Social History [...] of this encounter OR Notes * Anesthesia Procedure Notes - Kevin Ball MD - 07/20/2016 12:44 AM EST Associated Order(s): ANE NEURAXIAL UPDATED Procedure: Neuraxial Block Labor Analgesia Type: Epidural The patient was greeted. The sedation plan, its benefits, risks and alternatives were discussed with the patient. The patient has consented to the procedure. The medical history and chart were reviewed. The timeout was performed. Start time: 07/19/2016 11:45 PM End time: 07/20/2016 12:21 AM Patient Prep Position: Sitting Prep: Hand Hygiene, Hat, Mask, Sterile Gloves and Chlorhexidine Injection technique: continuous Skin Anesthetic Lidocaine 1% 5 ml Procedure Technique Level of needle insertion: L4-5 Needle Type: Tuohy Gauge: 18 Needle length: 3.5 in Needle insertion depth when BRIAN achieved: 7 cm Technique for Loss of Resistance: BRIAN air and BRIAN saline Catheter at skin depth: 12 cm Dressing/Secured with: Chlorhexidine Tegaderm and Tape Number of attempts: 2 Test dose A test dose of 3 mL was administered. Events/Notes Additional Notes: Negative aspiration. Negative test dose. 5mL 1/8 bupivicaine w/2mcg Fentanyl bolus from bag give. Resident/PRODUCTION SHIFT SUPERVISOR: JOAQUINA WEINSTEIN Second Resident/PRODUCTION SHIFT SUPERVISOR: KEVIN BALL Fellow: Attending Physician: GARETH SCHMID ~~~~~~~~~~~~~~~~~~~~~~~~~~~~~~~~~~~~~~~~~~~~~~~~~~~~~~~~~~~~ * Anesthesia Preprocedure Evaluation - Rob Brown MD - 07/19/2016 10:44 AM EST Pre-Anesthesia Evaluation for: Aruna Saucedo Elder a 21 y.o. female. Patient Active Problem List Diagnosis ??? premature rupture of membranes (PPROM) with unknown onset of labor ??? Contraception Ashish Consent Form Signed Date: 07/19/2016 Ashish Consent Form Scanned no, in folder on BP Added to Shared List yes Questionnaire Completed yes LARC Device labeled in safe area? no LARC Device Type: Liletta Insertion Date Was there Contamination? Yes/no Comment: ??? History of congenital malformation ??? Major depressive disorder, recurrent episode, moderate (DEPRESSION) ??? YORK (headache) ??? ADHD (attention deficit hyperactivity disorder), combined type Past Medical History Diagnosis Date ??? ADHD (attention deficit hyperactivity disorder) ??? Major depression ??? Premature Born 4 months early Past Surgical History Procedure Laterality Date ??? Tonsillectomy and adenoidectomy ??? Patent ductus arterious ligation Social History Substance Use Topics ??? Smoking status: Former Smoker Types: Cigarettes ??? Smokeless tobacco: Never Used ??? Alcohol use No History Drug Use No No Known Allergies Medications: MAR and/or home medications have been reviewed. Physical Exam: Vitals: 07/19/16 1038 BP: Pulse: Resp: Temp: 37.1 ??C (98.8 ??F) Body mass index is 27.99 kg/(m^2). Height: 161.3 cm (5' 3.5) Weight - Scale: 72.8 kg (160 lb 8 oz) Airway Assessment: Mallampati: I TM distance: >3 FB Neck ROM: full Cardiovascular Assessment: Pulmonary Assessment: Dental Assessment: - normal exam Misc Assessment: IV access: Peripheral line Anesthesia Plan: ASA 2 Pt interviewed and examined. Pt is a 21 y.o. female who is and 34w1d here for IOL with PPROM. Medical history, medications, allergies, and social history reviewed, significant for cognitive delay, ADHD, depression. Labs reviewed and listed below. No contraindication to a neuraxial technique. Consent obtained. Risk, benefits discussed; questions answered. Allergies/ADR: none Personal history of problems with anesthesia: denies Family history of anesthesia problems: none Bleeding Disorder: none Asthma: none HTN: none Prior back surgeries/pathology: none LE numbness/weakness: none Lab Results Component Value Date/Time HGB 11.6 (L) 07/19/2016 01:40 AM PLATELET 213 07/19/2016 01:40 AM Discussed potential need for labor analgesia and/or anesthesia to possibly include epidural, spinal, CSE, and anesthesia for (which includes all of the above with the addition of general anesthesia.) Answered all questions, consent obtained and placed in patient's chart. Rob Brown, DO Anesthesiology, CA-1 Pager [phone] Region - Other Informed Consent: Anesthetic plan and risks discussed with patient and mother. Plan discussed with attending. PAT Staff Note documented in this encounter Plan of Treatment Not on file documented as of this encounter Procedures Procedure Name Priority Date/Time Associated Diagnosis Comments ANE NEURAXIAL UPDATED Routine 07/25/2016 7:57 AM EST documented in this encounter Results * ANE NEURAXIAL UPDATED (07/25/2016 7:57 AM EST) Narrative Gareth Schmid MD - 07/25/2016 7:57 AM EST Kevin Ball MD ? 07/20/2016 12:48 AM Procedure: ?? Neuraxial Block Labor Analgesia Type: Epidural The patient was greeted. The sedation plan, its benefits, risks and alternatives were discussed with the patient. ??The patient has consented to the procedure. ??The medical history and chart were reviewed. ??The timeout was performed. Start time: 07/19/2016 11:45 PM End time: 07/20/2016 12:21 AM Patient Prep Position: Sitting Prep: Hand Hygiene, Hat, Mask, Sterile Gloves and Chlorhexidine Injection technique: continuous Skin Anesthetic Lidocaine 1% ??5 ml Procedure Technique Level of needle insertion: L4-5 Needle Type: Tuohy Gauge: 18 Needle length: 3.5 in Needle insertion depth when BRIAN achieved: 7 cm Technique for Loss of Resistance: BRIAN air and BRIAN saline Catheter at skin depth: 12 cm Dressing/Secured with: Chlorhexidine Tegaderm and Tape Number of attempts: 2 Test dose A test dose of 3 mL was administered. Events/Notes Additional Notes: ??Negative aspiration. Negative test dose. 5mL 1/8 bupivicaine w/2mcg Fentanyl bolus from bag give. Resident/PRODUCTION SHIFT SUPERVISOR: ? JOAQUINA WEINSTEIN Second Resident/PRODUCTION SHIFT SUPERVISOR: ??KEVIN BALL Fellow: ? Attending Physician: ? GARETH SCHMID ~~~~~~~~~~~~~~~~~~~~~~~~~~~~~~~~~~~~~~~~~~~~~~~~~~~~~~~~~~~~ Gareth Schmid MD [employer] [facility] documented in this encounter Visit Diagnoses Not on filedocumented in this encounter Care Teams Driveway Attendant Relationship Specialty Start Date End Date Unknown None PCP - General 06/18/16 11/19/17 documented as of this encounter
--- OUTSIDE RECORDS SUMMARY | 2024-07-09 13:38 | XMS_ITS | Encounter Summary ---
Author Organization [facility] Address [address] [place] [address] Care Team Providers Care Crane Operator Cab Name Role Phone Unknown, Provider Primary Care Provider Unava ilable Encounter Details Date Type Department Care Team (Late st Contact Info) Description 12/03/2019 Lab Requisition [facility] Pathology & Laboratory Medicine - [facility] [address] [place] [address] Siri Sanz, [address] [place] [address] Encounter for other general examination Social History [...] Name Priority Date/Time Associated Diagnosis Comments PAP TEST Today 12/02/2019 11:00 EDT Encounter for other general examination documented in this encounter Results * PAP TEST (12/02/2019 11:00 EDT) Specimens A. Cervix and/or Endocervix , ThinPrep Imaging System with Manual Evaluation 12/11/2019 13:10 EDT [facility] Specimen Adequacy Satisfactory for Evaluation - transformation zone component present 12/11/2019 13:10 EDT [facility] General Categorization Negative for intraepithelial lesion or malignancy 12/11/2019 13:10 EDT [facility] Descriptive Diagnosis Shift in jackie present suggestive of bacterial vaginosis. 12/11/2019 13:10 EDT [facility] Attestation . 12/11/2019 13:10 EDT [facility] at 1310 Clinical History NONE 12/11/19 13:10 EDT [facility] Scanned Images 12/11/2019 13:10 EDT [facility] Papanicolaou smear specimen (specimen) CERVIX UTERI STRUCTURE / Unknown 12/02/2019 11:00 EDT 12/03/2019 8:24 EDT us Siri Sanz INVESTIGATIONS CONSULTANT PATHOLOGY ORDERABLES Final R esult [facility] [address] [place] [address] documented in this encounter Visit Diagnoses Diagnosis Encounter for other general examination documented in this encounter Care Teams Crane Operator Cab Relationship Specialty Start Date End Date Unknown, Provider, PCP - General 05/16/17 documented as of this encounter
--- OUTSIDE RECORDS SUMMARY | 2024-07-09 13:38 | XMS_ITS | Encounter Summary ---
Author Organization [facility] Address [facility] [place] [address] Care Team Providers Care Industrial/Organizational Psychologist Name Role Phone Unknown Primary Care Provider Unavailabl e Reason for Visit * Auth/Cert Specialty Diagnoses / Procedures Referred By Des leblanc Referred To Contact Diagnoses premature rupture of membranes (PPROM) with unknown onset of labor 33 AND 5 WKS PROM Procedures EMERGENCY Referral ID Status Reason Start Date Expiration Date Visits Re quested Visits Authorized [id number] 1 1 Encounter Details Date Type Department Care Team (Latest Contact Info) Description 07/18/2016 11:22 PM EST - 07/22/2016 1:10 PM [facility] Hospital [place] [id number] Latisha Rodriguez MD [facility] [address] premature rupture of membranes (PPROM) with unknown onset of labor (Primary Dx) Discharge Disposition: Home Social History Tobacco Use [...] Sign Reading Time Taken Comments Blood Pressure 104/58 07/22/2016 7:51 AM EST Pulse 92 07/22/2016 7:51 AM EST Temperature 36.9 ??C (98.4 ??F) 07/22/2016 7:51 AM ES T Respiratory Rate 14 07/22/2016 7:51 AM EST Oxygen Saturation 100% 07/22/2016 7:51 AM EST Inhaled Oxygen Concentration - - Weight 72.8 kg (160 lb 8 oz) 07/19/2016 3:00 AM EST Height 161.3 cm (5' 3.5) 07/19/2016 3:00 AM EST Body Mass Index 27.99 07/19/2016 3:00 AM EST documented in this encounter Discharge Summaries * Ava Albrecht MD - 07/22/2016 6:23 AM EST Discharge Summary Patient Name: Aruna Friedman Patient Age: 21 y.o. Language: Bahraini Race: White Ethnicity: Not nor Admit date: 07/18/2016 Discharge date and time: 07/22/2016 Attending Physician: Latisha Rodriguez MD Discharge Physician: Iona Ellison MD Referring Hospital: [facility] Referring Provider: Maryjane Bah CNM ?? Follow-up Recommendations for Providers: - Has appt with PCP in 2 weeks for consideration of initiating Prozac (hx of depression) - 6 week visit with string check for IUD placement with primary OB providers - Final placental pathology pending - Patient had a post-placental Liletta IUD placed, which has a higher rate of expulsion (up to 30%). Please check to see if strings are visible at visit and trim as necessary. If strings not seen TVUS or X-ray can be used to localize IUD. Inpatient Provider Contact Information: [facility] Department, Discharge Diagnoses (Hospital Problems) and Secondary Diagnoses (Chronic Problems) Active Hospital Problems Diagnosis ??? premature rupture of membranes (PPROM) with unknown onset of labor ??? Contraception ??? ADHD (attention deficit hyperactivity disorder), combined type Resolved Hospital Problems Diagnosis Date Resolved No resolved problems to display. Active Non-Hospital Problems Diagnosis ??? History of congenital malformation ??? Major depressive disorder, recurrent episode, moderate (DEPRESSION) ??? YORK (headache) Operations/Major Procedures: 07/20/2016- Normal spontaneous vaginal delivery with post-placental Liletta IUD placement Indication for Admission: PPROM History of Presentation: (per admit note cut and paste) Aruna Friedman is a 21 y.o. at 34w1d gestation by first trimester ultrasound presented to [facility] after she noticed leaking today after intercourse around 0800. However, upon further questioning,she may have been leaking for the prior two days. Reports good FM, no vaginal bleeding and no contractions. ?? At the outside hospital, she received 5 million units of penicillin and received her first betamethasone at 2030 on 07/19/16. GBS was not collected. ?? Her has been complicated by: 1. Straight umbilical cord: last scan 07/15/16 see below 2. Depression 3. ADHD 4. Contraception: desires Nexplanon 5. Learning disability, makes her medical decisions 6. Was unable to tolerate her glucola Hospital Course Including Delivery and Events Patient was admitted and was confirmed to be >34w. Induction of labor with pitocin was initiated, and PCN for GBS unknown was continued. Late steroids were given. She declined a ALFREDO. Received Anesthesia and NICU consults. She used an epidural for analgesia. ?? She progressed to complete and delivered a viable female of APGARS of 5 and 9. Delayed cord clamping observed. Within 5 minutes of placenta delivery, a Liletta IUD was inserted to the fundus. An abdominal ultrasound confirmed placement in the fundus.A left labial laceration which was repaired with 3-0 vicryl suture. No complications. Blood loss estimated at 400ccs. The was brought to the intensive care nursery. Please see delivery note for further details. the patient recovered well. Pain was managed with tylenol and ibuprofen. She ambulated, voided freely and tolerated a regular diet. Her fundal exam was as expected and her lochia was within normal limits. She was establishing breast feeding. She was discharged to home in good condition and good spirits on PPD #2 with plans to see her primary care provider in 2 weeks for depression screening and plans for a routine 6 week visit. For contraception she had a Liletta IUD placed . ?? Delivery Information Information for the patient's : Elder, Baby Girl [[id number]] INFORMATION Baby Xu Friedman 07/20/2016 6:47 AM by Vaginal, Spontaneous Delivery Sex: female Gestational Age: 34w2d [place] Measurements: Weight: 5 lb 8.2 oz (2500 g) APGARS One Minute Five Minutes Ten Minutes Totals: 5 9 EBL: 400 cc Vital signs at Discharge: BP: 117/61, Heart Rate: 82, Temp: 36.8 ??C (98.2 ??F), Resp: 18, BMI (Calculated): 28 Height: 161.3 cm (5' 3.5) (07/19/16 0300) Weight - Scale: 72.8 kg (160 lb 8 oz) (07/19/16 0300) Functional and Cognitive status: Ambulating normally / At baseline. Important Studies and Lab Data: Labs: Recent Labs 07/19/16 0140 WBC 12.7* HGB 11.6* HCT 34.3* PLATELET 213 Component Value Date/Time SPGRAVITYUA 1.030 07/19/2016 0300 PHUADIP 6.0 07/19/2016 0300 PROTEINUADIP 30 (A) 07/19/2016 0300 GLUCOSEU Negative 07/19/2016 0300 KETONESUA Negative 07/19/2016 0300 UROBILIUADIP 2.0 (A) 07/19/2016 0300 BLOODUADIP Negative 07/19/2016 0300 NITRATEUA Negative 07/19/2016 0300 LEUKOESTERUA Negative 07/19/2016 0300 WBCUA 3 07/19/2016 0300 BILIRUBINUA Negative 07/19/2016 0300 Studies: No studies. Pending Studies and Lab Data: Placenta pathology pending. Discharge Conditions/Prognosis: good Discharge to: Home Contraceptive Plans: post-placental Liletta IUD Placed prior to discharge Allergies at Discharge: No Known Allergies Immunizations Given this Hospitalization: There is no immunization history for the selected administration types on file for this patient. Discharge Medications: Your Medications New Medications Dose Details acetaminophen 325 mg Tab Commonly known as: TYLENOL Take 2 tablets by mouth every 4 hours as needed for Pain. 650 mg Quantity: 30 tablet Refills: 1 docusate sodium 100 mg Cap Commonly known as: COLACE Take 1 capsule by mouth 2 times daily for 10 days. 100 mg Quantity: 10 capsule Refills: 0 ibuprofen 600 mg Tab Commonly known as: ADVIL;MOTRIN Take 1 tablet by mouth every 6 hours as needed for Pain. 600 mg Quantity: 30 tablet Refills: 12 Continued medications, unchanged Dose Details methylphenidate 36 mg Tr24 Commonly known as: CONCERTA Take 72 mg by mouth every morning. Indications: Attention-Deficit Hyperactivity Disorder 72 mg Refills: 0 VITAMIN Tab Daily Generic drug: vitamin with pntohklp-Eq-Whkl-FA Refills: 0 STOPPED Medications ondansetron 8 mg Tbdl Commonly known as: ZOFRAN-ODT Smoking Status at Discharge: History Smoking Status ??? Former Smoker ??? Types: Cigarettes Smokeless Tobacco ??? Never Used Instructions Given to Patient at Discharge: There are no outpatient Patient Instructions on file for this admission. General Instructions None Future Appointments and Orders Future Orders Complete By Expires Durable Medical Equipment Order [EQ148 Custom] As directed Process Instructions: Scheduling Instructions: Comments: Aruna Friedman 1995 [address] [facility] [address] [facility] [address] (home) [employer] Central intake- #[phone] fax [phone] [place] Office- [phone] RX: Hospital Grade Electric Breast Pump- Lactina Breast Pump Length of Need: 3 Months Purpose of Appliance: To Initiate and Maintain Medical Necessity: /Lactating Mother- Z39.1 Breast Engorgement relative to infant born at 34 2/7 gestation - P92.9 Feeding problem of , unspecified Premature Infant in ICN from mother- P07.30 Prematurity Questions: Name/Description of requested item: lactina breast pump Size requested: Vendor Name/Contact information: [employer] Discharge References/Attachments None documented in this encounter Discharge Instructions * Discharge Instructions* Roselia Tomas RN - 07/22/2016 12:50 PM EST Nurse Inpatient Note - Vaginal Delivery Follow-ups: Six weeks post- Immunizations Received: [ X] Inactivated Influenza Vaccine Additional Instructions: Maternal Discharge Instructions Rest: Although it may seem impossible to get enough rest, simple planning will help. Try to get at least one four hour block of uninterrupted sleep in 24 hours; then plan to rest, and/or sleep when your baby does. Limiting visitors also helps. Fathers and other family members can help by doing housework, caring for other children and/or helping limit visitors. Nutrition: Your diet following the of your baby is as important as it was before the baby wasborn. Drink a minimum of 6-8 glasses a day. Do not attempt to lose weight during the first six weeks. Continue taking your vitamins until they are gone. Lochia: (Flow) Your flow should be no heavier than a normal period. It will be bright red for 2-3 days and then pinkish and finally colorless. If your flow becomes bright red again, decrease your activity. Do not use tampons until your care provider advises you it is OK. Perineum: For about a week continue to rinse yourself with warm water when you use the toilet. A sitz bath with Epsom salts taken 3-4 times a day may help relieve soreness. Kegel exercise, done regularly throughout the day, will help tighten the perineal muscles and speed recovery. Breast Care for Formula feeding mothers: Wear a well fitting bra to support your breasts. Ice packsto your breasts and Tylenol or Ibuprofen may be used to relieve discomfort from engorgement. Avoid stimulating your breasts: Do not let warm water from the shower fall on them; avoid holding your baby near your breasts until your milk begins to decrease and engorgement is relieved. Breast feeding mothers: Practice careful positioning and frequent feeding as demonstrated in the hospital. The printed information in your packet covers this in detail. Call your doctor or chemistry teacher for: ??? Fever more than 100.5 ??? Heavy bleeding that saturates a pad an hour ??? Clots larger than a plum ??? Increased abdominal pain, nausea, shaking chills ??? Breast with hot, hard, tender areas on the breast plus flu-like symptoms ??? depression occurs in a large percentage [...] prior to you follow up appointment. Your [facility] Provider can be reached during office hours at ??? Midwives ??? Obstetricians ??? [facility] Follow[facility] ??? AFTER OFFICE HOURS for the rail car maintenance mechanic or chemistry teacher television repairman Provider electronic signature confirms that discharge instructions were reviewed with the patient. A copy was printed and given to the patient. documented in this encounter Medications at Time of Discharge Medication Sig Dispensed Refills Start Date End Date vitamin with qkpjketd-Tg-Dvur-FA ( VITAMIN) TabletIndications:Sup ervision of high risk in second trimester,Medication exposure during first trimester of Daily 12/29/2015 docusate sodium (COLACE) 100 mg Capsule Take 1 capsule by mouth 2 times daily for 10 days. 10 capsule 07/22/2016 08/01/2016 acetaminophen (TYLENOL) 325 mg Tablet Take 2 tablets by mouth every 4 hours as needed for Pain. 30 tablet 1 07/22/2016 05/08/2018 ibuprofen (ADVIL;MOTRIN) 600 mg Tablet Take 1 tablet by mouth every 6 hours as needed for Pain. 30 tablet 12 07/22/2016 05/08/2018 methylphenidate (CONCERTA) 36 mg Tablet Extended Rel 24 hrIndications:attenti on-deficit hyperactivity disorder Take 72 mg by mouth every morning. Indications: Attention-Deficit Hyperactivity Disorder 01/12/2018 documented as of this encounter Progress Notes * Ester Cool - 07/22/2016 5:33 AM EST Vaginal Delivery Note Information for the patient's : Young, Baby Girl [[id number]] Delivery Date and Time:07/20/2016 6:47 AM Delivery Type: Vaginal, Spontaneous Delivery ID: Aruna Friedman is a 21 y.o. who is PPD#2 from at 34w2d admitted with PPROM. Subjective: Aruna is doing well this morning. No complaints and no pain. Her vaginal bleeding is cleaning professional. Breast pumping for in ICN. Received postplacental Liletta. Review of Systems - denies lightheadedness, chest pain, SOB, fever or chills, LE pain Lochia: small Last Set of Vitals: Vitals: 07/21/16 2143 BP: 117/61 Pulse: 82 Resp: 18 Temp: 36.8 ??C (98.2 ??F) Weight - Scale: 72.8 kg (160 lb 8 oz) Physical Exam Gen: Pleasant. Sitting up in bed, breast pumping. NAD. Neuro: Alert and oriented. Cardiac: RRR. No murmurs, rubs, or gallops. Pulm: CTAB. No wheezes, rales, or rhonci. Abd: Soft. Non tender. No rebound or guarding. Uterine Fundus: firm, non-tender and 2 cm below umbilicus Lochia: appropriate Perineum: not inspected Significant Labs: Lab Results Component Value Date ABORH O Pos 07/19/2016 WBC 12.7 (H) 07/19/2016 HCT 34.3 (L) 07/19/2016 HGB 11.6 (L) 07/19/2016 RUBLIGG Positive 07/19/2016 Immunization status: Up to date Assessment & Plan Aruna Friedman is a 21 y.o. who is PPD#2 from at 34w2d admitted with PPROM. Pregnancywas complicated by depression, ADHD, and learning disability. ?? Patient is doing well without problems. ??? Infant nutrition: breast pumping ??? Contraception: IUD - postplacental Liletta ??? care: 2 week depression screen and routine 6 week visit. She has an appointment withher PCP who has managed her mood disorders in 2 weeks. Discussed signs of depression andthat she might need to restart Prozac that she took prior to . She prefers to wait and seehow she does. ??? Dispo: discharge likely today, PPD#2 Assessment Management of Additional Medical Issues ?? ADHD - continue Concerta ?? Learning disability - social work aware This patient was seen and discussed on rounds. Ester Cool MD 07/22/2016 Associated attestation - Antonio aBjwa MD - 07/23/2016 9:25 AM EST I saw the patient, discussed her care with the Ob team on morning rounds, and agree with the assessment and plan as documented. Antonio Bajwa MD 07/23/2016 9:24 AM * Olga Acevedo - 07/21/2016 6:22 AM EST Vaginal Delivery Note Information for the patient's : Young, Baby Girl [[id number]] Delivery Date and Time:07/20/2016 6:47 AM Delivery Type: Vaginal, Spontaneous Delivery ID: Aruna Friedman is a 21 y.o. who is PPD#1 from [facility] at 34w2d admitted with PPROM. Subjective: Aruna is doing well this morning. Bleeding moderate. Breast pumping for in ICN.Received postplacental Liletta. Review of Systems - denies chest pain, SOB, fever or chills Lochia: moderate Last Set of Vitals: Vitals: 07/20/162005 BP: 106/60 Pulse: 77 Resp: 18 Temp: 36.6 ??C (97.9 ??F) Weight - Scale: 72.8 kg (160 lb 8 oz) Physical Exam Gen: Pleasant. Resting comfortably in bed. NAD. Neuro: Alert and oriented. Cardiac: RRR. No murmurs, rubs, or gallops. Pulm: CTAB. No wheezes, rales, or rhonci. Abd: +BS. Soft. Non tender. No rebound or guarding. Uterine Fundus: firm, non-tender and 2 cm below umbilicus Lochia: appropriate Perineum: not inspected Significant Labs: Lab Results Component Value Date ABORH O Pos 07/19/2016 WBC 12.7 (H) 07/19/2016 HCT 34.3 (L) 07/19/2016 HGB 11.6 (L) 07/19/2016 RUBLIGG Positive 07/19/2016 Immunization status: Up to date Assessment & Plan Aruna Friedman is a 21 y.o. who is PPD#1 from at 34w2d admitted with PPROM. Pregnancywas complicated by depression, ADHD, and learning disability. ?? Patient is doing well without problems. ??? Infant nutrition: breast pumping ??? Contraception: IUD - postplacental Liletta ??? care: 2 week depression screen and routine 6 week visit ??? Dispo: discharge likely tomorrow, PPD#2 Assessment Management of Additional Medical Issues ?? ADHD - continue Concerta ?? Learning disability - social work aware This patient was seen and discussed on rounds. OLGA ACEVEDO MD 07/21/2016 * Ehsan Eastman RN - 07/20/2016 1:41 PM EST Patient Name: Aruna Friedman Patient Age: 21 y.o. Birthdate: 1995 Admit date: 07/18/2016 Attending Physician: Latisha Rodriguez MD Aruna Friedman [address] [place] [address] [address] [facility] [address] (home) [employer] Central intake- #[phone] fax [phone] [place] Office- [phone] RX: Hospital Grade Electric Breast Pump- Lactina Breast Pump Length of Need: 3 Months Purpose of Appliance: To Initiate and Maintain Medical Necessity: /Lactating Mother- Z39.1 Breast Engorgement relative to infant born at 34 2/7 gestation - P92.9 Feeding problem of , unspecified Premature Infant in ICN from mother- P07.30 Prematurity Map and directions provided to mom. Ehsan Eastman RN Intensive Care Nursery Rotary Driller ProspectingClinical Nurse of Care Management Phone:# [phone] Beeper: #[id number] Fax: # [phone] * Latisha Rodriguez MD - 07/20/2016 6:10 AM EST Multidisciplinary Second Stage Labor Progress Note Patient ID: Aruna Friedman is a 21 y.o. at 34w2d gestation. A multidisciplinary meeting was held to discuss discuss maternal/ status. This included the charge nurse (Iona Diaz), Labor nurse (Chandrika), Attending Triple Valve Mechanic (Dr Rodriguez) and [facility] OB resident (Dr. Cool). The patient was found to be fully dilated at 0537. The vertex is currently at +3 station. There is minimal caput present. Maternal status: Stable. Good effort on practice push. status: The baseline FHR at the time of full dilation was 125. The baseline FHR is currently 125 with moderate variability, + accels, no decles. The heart rate tracing is category 1 and is overall reassuring. The maternal heart rate is 92, distinct from FHR on spO2 monitoring. Assessment/Plan: Begin pushing. The assessment of and maternal status and plan of care was discussed with the patient and herfamily. Ester Cool MD, PGY-1 I attended this second stage huddle and I agree with the above documentation and plan. LATISHA RODRIGUEZ MD * Iona Diaz RN - 07/20/2016 6:08 AM EST Time complete: 0537 Time active pushing started: Will start soon. Baseline FHR at complete: 125 Current time: 0608 Who is present: Dr. Rodriguez, Shola Roca RN (bedside RN), Cameron Diaz RN (Charge, RN) FHR assessment: Baseline: 125 Variability: moderate Accelerations: present Decelerations: none Uterine activity assessment: Contractions every 2-3 Maternal pulse: 92 20 bpm difference from baseline: yes Spo2 indicated?: No Delayed cord clamping indicated? No Second Stage assessments/concerns: ICN present for delivery due to GA Interventions (intrauterine resuscitation): None at this time Assessment: Category I tracing Plan: Assist mom with pushing efforts, ICN notified. Communication with patient/family: Yes Additional information: * Latisha Rodriguez MD - 07/20/2016 1:00 AM EST Labor Progress Note ID: Aruna Friedman is a 21 y.o. at 34w2d admitted with PPROM, undergoing IOL. Subjective: Aruna is now comfortable with an epidural. Objective: Temp: (P) 36.4 ??C (97.5 ??F) 24 hr Temp: [36.3 ??C (97.3 ??F)-37.1 ??C (98.8 ??F)] Heart Rate: 63 24 hr Heart Rate: [63-95] BP: 117/65 24 hr BP: (96-140)/(59-91) Cervix Exam: Dilation: 7 (07/20/16 0058) Effacement: 75 Station: 0 Position: Anterior Consistency: Soft Whyte Score: 11 Pitocin: 18 mU/min Heart Rate Interpretation: Baseline 130, mod emmanuel, accels present, no decels. [place]: ctx q2 min. GBS Unknown, culture collected after PCN Assessment & Plan This is Aruna Friedman who is at 34w2d. Early latent labor, on pitocin, s/p gutiérrez balloon, forebag AROM. IUPC placed. Plan to continue with pitocin titration. wellbeing: Category 1 ?? GBS Management:: Penicillin ?? Anesthesia: Epidural Additional Issues ?? Contraception: post-placental Liletta IUD ?? ADHD: continue Concerta 30 mg BID ?? Hx of Depression and headaches- stable currently ?? No glucola done. Ester Cool MD PGY-1 07/20/2016 I have personally reviewed this patients progress in labor and agree with the documentation above. LATISHA RODRIGUEZ MD * Latisha Rodriguez MD - 07/19/2016 10:45 PM EST Labor Progress Note ID: Aruna Friedman is a 21 y.o. at 34w1d admitted with PPROM, undergoing IOL. Subjective: She is feeling tired but was not feeling many contractions. Gutiérrez balloon fell out. Objective: Temp: 37 ??C (98.6 ??F) 24 hr Temp: [36.3 ??C (97.3 ??F)-37.3 ??C (99.1 ??F)] Heart Rate: 81 24 hr Heart Rate: [78-90] BP: 109/59 24 hr BP: (109-136)/(59-83) Cervix Exam: Dilation: 4 (Dr. Cool) (07/19/16 2246) Effacement: 75 Station: -1 Position: Anterior Consistency: Soft Whyte Score: 10 Pitocin: 14 mU/min Heart Rate Interpretation: Baseline 125, mod emmanuel, accels present, no decels. [place]: ctx q2-4 min. GBS Unknown, culture collected after PCN Assessment & Plan This is Aruna Friedman who is at 34w1d. Early latent labor, on pitocin, s/p gutiérrez balloon. Forebag ruptured for blood-tinged fluid with this exam. ?? Beta #2 given at 2029 ?? GBS Management:: Penicillin ?? Anesthesia: Planning an epidural Additional Issues ?? Contraception: post-placental Liletta IUD ?? ADHD: continue Concerta 30 mg BID ?? Hx of Depression and headaches- stable currently ?? No glucola done. Ester Cool MD PGY-1 07/19/2016 I have personally reviewed this patients progress in labor and agree with the documentation above. LATISHA RODRIGUEZ MD * Latisha Rodriguez MD - 07/19/2016 7:44 PM EST Labor Progress Note ID: Aruna Friedman is a 21 y.o. at 34w1d admitted with PPROM. Subjective: Resting comfortably, feeling occasional cramping Objective: Temp: 36.5 ??C (97.7 ??F) 24 hr Temp: [36.3 ??C (97.3 ??F)-37.3 ??C (99.1 ??F)] Heart Rate: 90 24 hr Heart Rate: [78-90] BP: 130/76 24 hr BP: (115-136)/(69-83) Cervix Exam: Dilation: 2 (by Dr. Cool) (07/19/16 1841) Effacement: 80 Station: -2 Position: Anterior Consistency: Soft Whyte Score: 9 Pitocin: 10 mU/min Heart Rate Interpretation: Baseline 125, mod emmanuel, accels present, no decels. [place]: ctx q2-4 min. GBS Unknown, culture collected after PCN Random fingerstick: 94 Assessment & Plan This is Aruna Friedman who is at 34w1d. Early latent labor without cervical change, on pitocin. Gutiérrez balloon placed at this exam. ?? Beta #2 given at 2029 ?? GBS Management:: Penicillin ?? Anesthesia: Planning an epidural Additional Issues ?? Contraception: post-placental Liletta IUD ?? ADHD: continue Concerta 30 mg BID ?? Hx of Depression and headaches- stable currently ?? No glucola done: Ester Cool MD PGY-1 07/19/2016 I have personally reviewed this patients progress in labor and agree with the documentation above. LATISHA RODRIGUEZ MD * BarLea weinsteinbroderick Saucedo - 07/19/2016 3:52 PM EST Labor Progress Note ID: Aruna Friedman is a 21 y.o. at 34w1d admitted with PPROM. Subjective: Resting comfortably, feeling occasional cramping Objective: Temp: 36.3 ??C (97.3 ??F) 24 hr Temp: [36.3 ??C (97.3 ??F)-37.3 ??C (99.1 ??F)] Heart Rate: 84 24 hr Heart Rate: [78-85] BP: 136/83 24 hr BP: (115-136)/(69-83) Cervix Exam: Dilation: 2 (07/19/16 1543) Effacement: 80 Station: -1 Position: Anterior Consistency: Soft Whyte Score: 9 Pitocin: 8 mU/min Heart Rate Interpretation: Baseline 125, mod emmanuel, accels present, no decels. [place]: ctx q2-4 min. GBS Unknown, culture collected after PCN Random fingerstick: 94 Assessment & Plan This is Aruna Friedman who is at 34w1d. Early latent labor with small amount of change. Receivingpitocin since 03:00. Will continue titration. ?? PPROM: patient declines ALFREDO, GC/CT pending ?? Beta #2 due at 20:30 this evening ?? Labor Plans: Intervention: IV Pitocin induction ?? GBS Management:: Penicillin ?? Anesthesia: Planning an epidural Additional Issues ?? Contraception: post-placental Liletta IUD ?? ADHD: continue Concerta 30 mg BID ?? Hx of Depression and headaches- stable currently ?? No glucola done: OLGA ACEVEDO MD PGY-4 07/19/2016 * Ava Albrecht MD - 07/19/2016 2:17 PM EST Labor Progress Note ID: Aruna Friedman is a 21 y.o. at 34w1d admitted with PPROM. Subjective: Resting comfortably, occasional back discomfort Objective: Temp: 36.5 ??C (97.7 ??F) 24 hr Temp: [36.5 ??C (97.7 ??F)-37.3 ??C (99.1 ??F)] Heart Rate: 85 24 hr Heart Rate: [78-85] BP: 115/69 24 hr BP: (115-131)/(69-74) Cervix Exam: Dilation: 1 (07/19/16 0037) Effacement: 75 Station: -2 Position: Anterior Consistency: Soft Whyte Score: 8 Pitocin: 10 mU/min Heart Rate Interpretation: Baseline 130, mod emmanuel, accels present, no decels. [place]: ctx q3-4 min. Imp: Cat I. GBS Unknown, culture collected after PCN Random fingerstick: 94 Assessment & Plan This is Aruna Friedman who is at 34w1d. Labor Assessment: Not in labor ?? PPROM: patient declines ALFREDO, GC/CT pending ?? Beta #2 20:30 ?? Labor Plans: Intervention: IV Pitocin induction ?? GBS Management:: Penicillin ?? Anesthesia: Planning an epidural Additional Issues ?? Contraception: post-placental Liletta IUD ?? ADHD: continue Concerta 30 mg BID ?? Hx of Depression and headaches- stable currently ?? No glucola done: Will AVA Evangelista MD PGY-3 07/19/2016 * Ava Albrecht MD - 07/19/2016 10:10 AM EST Error * Ava Albrecht MD - 07/19/2016 7:01 AM EST Labor Progress Note ID: Aruna Friedman is a 21 y.o. at 34w1d admitted with PPROM. Subjective: Starting to feel some back discomfort. Declines ALFREDO. Objective: Temp: 37.3 ??C (99.1 ??F) 24 hr Temp: [36.5 ??C (97.7 ??F)-37.3 ??C (99.1 ??F)] Heart Rate: 82 24 hr Heart Rate: [78-82] BP: 126/74 24 hr BP: (126-127)/(74) Cervix Exam: Dilation: 1 (07/19/16 0037) Effacement: 75 Station: -2 Position: Anterior Consistency: Soft Whyte Score: 8 Heart Rate Interpretation: Baseline 130, mod emmanuel, accels present, no decels. [place]: ctx q3-4 min. Imp: Cat I. GBS Unknown, culture collected after PCN Assessment & Plan This is Aruan Friedman who is at 34w1d. Labor Assessment: Not in labor ?? PPROM: patient declines ALFREDO, GC/CT pending ?? Beta #2 pending ?? Labor Plans: Intervention: IV Pitocin induction ?? GBS Management:: Penicillin ?? Anesthesia: Planning an epidural Additional Issues ?? Contraception: post-placental Liletta IUD ?? ADHD: continue Concerta 30 mg BID ?? Hx of Depression and headaches- stable currently ?? No glucola done: will obtain random fingerstick now Will AVA Petit MD PGY-3 07/19/2016 * Latisha Rodriguez MD - 07/19/2016 1:45 AM EST 07/19/16 0143 Nonstress Test, Fetus A Multiple Fetuses? (no) HR (Beats/Min) 130 HR Variability moderate (amplitude range 6 to 25 bpm) HR Accelerations present HR Decelerations none Nonstress Test Interpretation Reactive, >32 weeks: two 15 bpm accelerations lasting 15 seconds Overall Impression Reassuring for gestational age NST Times NST Start Time 2332 NST Stop Time 0000 I personally reviewed and interpreted this NST. LATISHA RODRIGUEZ MD * Chandrika Jacob RN - 07/18/2016 11:28 PM EST Patient to BP 9 via stretcher with c/o of leaking of fluid. Patient reports that she has been leaking fluid for a few days but is unsure when it started. She reports having to have changed her underwear three times on Monday (07/16/16) and she leaked through her pajama pants. Reports positive movement. EFM explained and applied. Patient is cognitively delayed and often looks to her mother to help answer questions. Call souza in reach documented in this encounter H&P Notes * Latisha Rodriguez MD - 07/18/2016 11:44 PM EST Obstetrical Admission Note Referring Hospital: [facility] Referring Provider: Maryjane Bah CNM Initial Care Provider (if early referral or co-managed by M): n/a Chief Complaint: Aruna Friedman was admitted today secondary to premature rupture of membranes. Aruna Friedman is a 21 y.o. at 34w1d gestation by first trimester ultrasound presented to [facility] after she noticed leaking today after intercourse around 0800. However, upon further questioning,she may have been leaking for the prior two days. Reports good FM, no vaginal bleeding and no contractions. At the outside hospital, she received 5 million units of penicillin and received her first betamethasone at 2030 on 07/19/16. GBS was not collected. Her has been complicated by: 1. Straight umbilical cord: last scan 07/15/16 see below 2. Depression 3. ADHD 4. Contraception: desires Nexplanon 5. Learning disability, makes her medical decisions 6. Was unable to tolerate her glucola Review of Systems- Negative to complete review except as noted in the HPI. Obstetric Review of Systems Total Weight Gain this Not found. Movement: normal Contractions: none Leaking: None Bleeding; none now Preeclampsia signs and symptoms: None There are no hospital problems to display for this patient. Active Non-Hospital Problems Diagnosis ??? Major depressive disorder, recurrent episode, moderate (DEPRESSION) ??? YORK (headache) ??? ADHD (attention deficit hyperactivity disorder), combined type Past Medical History Diagnosis Date ??? ADHD (attention deficit hyperactivity disorder) ??? Major depression ??? Premature Born 4 months early Past Surgical History Procedure Laterality Date ??? Tonsillectomy and adenoidectomy ??? Patent ductus arterious ligation OB History Para Term AB TAB SAB Ectopic Multiple Living 1 # Outc Date GA Lbr Clif/2nd Wgt Sex Del Anes PTL Lv 1 Current Prescriptions Prior to Admission Medication Sig Dispense Refill Last Dose ??? vitamin with htmosuyw-Xs-Lmph-FA ( VITAMIN) Tablet Daily Taking at Unknown time ??? ondansetron (ZOFRAN-ODT) 8 mg Tablet, Rapid Dissolve 0 Taking at Unknown time ??? methylphenidate (CONCERTA) 36 mg Tablet Extended Rel 24 hr Take 72 mg by mouth every morning. Indications: Attention-Deficit Hyperactivity Disorder Taking at Unknown time No Known Allergies No family history on file. Social History Occupational History ??? Not on file. Social History Main Topics ??? Smoking status: Former Smoker Types: Cigarettes ??? Smokeless tobacco: Never Used ??? Alcohol use Not on file ??? Drug use: Not on file ??? Sexual activity: Not on file Immunization History There is no immunization history on file for this patient. Last Set of Vitals: There were no vitals taken for this visit. Physical Exam: Gen: AAO, NAD Cardio: nl rhythm, S1, S2, no M/C/R/G Pulm: CTA BL, no W/C/R Abd: +BS, soft, NT, ND, gravid Ext: warm, well-perfused, no MIGDALIA or calf tenderness Neuro: grossly intact Uterine Size: S=D Clinical EFW: 5lbs Sterile Speculum: pooled fluid appearing clear, nitrazine positive, ferning positive Cervix Exam: Dilation: 1 (07/19/16 0037) Effacement: 75 Station: -2 Position: Anterior Consistency: Soft Whyte Score: 8 Pelvis: average Presentations: Cephalic by ultrasound Heart Rate Interpretation: Baseline: 130bpm, Variability: moderate, Accels: yes, Decels: none, [place]: q4-6min Category: I Record Review Labs Lab Results Component Value Date HCT 40.6 02/13/2014 HGB 13.3 02/13/2014 MCV 89.8 02/13/2014 syphilis, Hep B, HIV Negative Hgb 12.0/Plt 252 Most Recent Ultrasound From [facility] Date: 07/15/16 GA at US: 33w2d EFW: 2170g 35th%tile Growth appropriate for gestational age Amniotic fluid volumenormal Placenta posterior Presentation cephalic Assessment & Plan Aruna Friedman is a 21 y.o. at 34w1d gestation being admitted for premature rupture of membranes. 1. premature rupture of membranes -Labs: CBC, type and screen, ua, gc/chlamydia -Delivery indications:progressive labor, non-reassuring status and maternal deterioration -Tocolysis: none -GBS status: unknown, pending at [facility] [place] - status: NSTonce daily -Steroid status: beta #1 at 2030 on 07/18 -Magnesium for neuro protection: n/a -Consultations: neonatology and anesthesiology -Consents obtained: section, Heather 2. contraception plan: Nexplanon 3. Status ?? Last Growth US: 07/15/16 at [facility] ?? Presentation: vtx ?? Straight umbilical cord ?? Needs varicella, rubella 4. care ?? 1hr GTT: was not done due to inability to tolerate ?? TDaP: Given 06/09/16 ?? Flu: declined on 03/23/16 5. Depression: not currently on medication 6. ADHD: methylphenidate 36mg BID Patient seen and discussed on Multidisciplinary Rounds JONNA HAN MD PGY4 07/19/2016 I saw and evaluated Aruna Friedman. I have reviewed the resident's history and confirmed it with the pateint and I agree with the details as written. My physical examination confirms the resident'sfindings. The assessment and plan were formulated in discussion with me and I agree with them as documented. LATISHA RODRIGUEZ MD documented in this encounter Miscellaneous Notes * Plan of Care - Roselia Tomas RN - 07/22/2016 1:10 PM EST Problem: Patient Care Overview Goal: Plan of Care Review Outcome: Outcome (s) achieved Date Met: 07/22/16 07/22/16 0751 07/22/16 5697 Plan of Care Review Progress -- progress toward functional goals as expected Coping/Psychosocial Plan Of Care Reviewed With patient;mother -- OUTCOME EVALUATION NOTE: OUTCOME SUMMARY: Pt tolerating diet. Ambulating and voiding without difficulty. Denies need for pain medication. Pumping independently. Denies nipple/breast tenderness. Visiting in ICN. Discharge instructions reviewed with pt and pt's mother. Questions answered. PLAN MOVING FORWARD: Discharge home. Information about [facility] [employer] provided. INDIVIDUALIZED FALL PREVENTION INTERVENTIONS: Patient-specific fall risk factors per assessment: [current deficits]: NA Assistance [level of assistance required for transfers and ambulation]: None. Pt ambulates with a steady gait. Call souza in reach and pt uses appropriately Supervision [direct monitoring required during toileting and ADLs]: None Surveillance [continuous indirect monitoring]: Purposeful rounding, VS Patient-specific fall prevention interventions for sensory deficits provided, if applicable: NA CPG GOAL OUTCOME EVALUATION: Outcome achieved Goal: Individualization & Mutuality Outcome: Outcome (s) achieved Date Met: 07/22/16 07/19/16 0300 Mutuality/Individual Preferences What Anxieties, Fears or Concerns Do You Have About Your Health or Care? not at the moment What Questions Do You Have About Your Health or Care? no What Information Would Help Us Give You More Personalized Care? no Goal: Fall Prevention-Safe Patient Handling Outcome: Outcome (s) achieved Date Met: 07/22/16 07/22/16750 Brown Fall Risk History of Falling 0 Secondary Diagnosis 15 Ambulatory Aids 0 Intravenous Therapy/Heparin/Saline Lock 0 Gait/Transferring 0 Mental Status 0 Score 15 OTHER Brown Fall Risk Low Restraint Interventions Safety Promotion/Fall Prevention fall prevention program maintained;nonskid shoes/slippers when outof bed;safety round/check completed Positioning Body Position independent Goal: Infection Control Outcome: Outcome (s) achieved Date Met: 07/22/16 07/22/16750 Safety Interventions Isolation Precautions standard precautions maintained Infection Prevention environmental surveillance performed;personal protective equipment utilized;single patient room provided Coping Strategies Supportive Measures active listening utilized;positive reinforcement provided;relaxation techniquespromoted;self-care encouraged;self-responsibility promoted;verbalization of feelings encouraged Goal: Discharge Needs Assessment Outcome: Outcome (s) achieved Date Met: 07/22/16 07/19/16 03007/21/16340 Discharge Needs Assessment Concerns To Be Addressed -- basic needs concerns;childcare concerns;cognitive/perceptual concerns;developmental concerns;mental health concerns Readmission Within The Last 30 Days -- no previous admission in last 30 days Equipment Needed After Discharge -- none Current Discharge Risk -- cognitively impaired Discharge Disposition -- still a patient Current Health Anticipated Changes Related to Illness -- none Activity/Self Care Review of Systems Equipment Currently Used at Home -- none Living Environment Transportation Available family or friend will provide -- Goal: Interdisciplinary Rounds/Family Conf Outcome: Outcome (s) achieved Date Met: 07/22/16 07/21/16340 Interdisciplinary Rounds/Family Conf Participants case coordinator;family;nursing;patient;physician;social work/services Problem: (Vaginal Delivery) (Adult) Goal: Signs and Symptoms of Listed Potential Problems Will be Absent, Minimized or Managed () Signs and symptoms of listed potential problems will be absent, minimized or managed by discharge/transition of care (reference (Vaginal Delivery) (Adult) CPG). Outcome: Outcome (s) achieved Date Met: 07/22/16 07/22/16750 (Vaginal Delivery) Problems Assessed ( Vaginal Delivery) all Problems Present ( Vaginal Delivery) none * Care Management - Iona Ellison MD - 07/21/2016 3:22 PM EST I called a chemistry teacher at [facility] with the delivery information. Iona Ellison MD * Plan of Care - Emily Umaña RN - 07/21/2016 3:10 PM EST Problem: Patient Care Overview Goal: Plan of Care Review Outcome: Ongoing (Interventions Implemented as Appropriate) 07/21/16 0343 07/21/16918 Plan of Care Review Progress progress toward functional goals is gradual -- Coping/Psychosocial Plan Of Care Reviewed With -- patient OUTCOME EVALUATION NOTE: OUTCOME SUMMARY: Patient s/p . assessment WNL. Voiding and ambulating independently. Pumping Q3h independently. Denies pain or discomfort at this time. Visiting in ICN. PLAN MOVING FORWARD: Monitor VS, promote pumping, pain management INDIVIDUALIZED FALL PREVENTION INTERVENTIONS: Patient-specific fall risk factors per assessment: [current deficits]: None Assistance [level of assistance required for transfers and ambulation]: Independent Supervision [direct monitoring required during toileting and ADLs]: Intermittent Surveillance [continuous indirect monitoring]: Purposeful rounding Patient-specific fall prevention interventions for sensory deficits provided, if applicable:N/A CPG GOAL OUTCOME EVALUATION: Goal: Individualization & Mutuality Outcome: Ongoing (Interventions Implemented as Appropriate) 07/19/16 0300 Mutuality/Individual Preferences What Anxieties, Fears or Concerns Do You Have About Your Health or Care? not at the moment What Questions Do You Have About Your Health or Care? no What Information Would Help Us Give You More Personalized Care? no Goal: Fall Prevention-Safe Patient Handling Outcome: Ongoing (Interventions Implemented as Appropriate) 07/21/16918 Brown Fall Risk History of Falling 0 Secondary Diagnosis 0 Ambulatory Aids 0 Intravenous Therapy/Heparin/Saline Lock 0 Gait/Transferring 0 Mental Status 0 Score 0 OTHER Brown Fall Risk Low Restraint Interventions Safety Promotion/Fall Prevention safety round/check completed Positioning Body Position independent Goal: Infection Control Outcome: Ongoing (Interventions Implemented as Appropriate) 07/21/16918 Safety Interventions Isolation Precautions standard precautions maintained Infection Prevention rest/sleep promoted Coping Strategies Supportive Measures active listening utilized Goal: Discharge Needs Assessment 07/19/16 03007/21/16 034 Discharge Needs Assessment Concerns To Be Addressed -- basic needs concerns;childcare concerns;cognitive/perceptual concerns;developmental concerns;mental health concerns Readmission Within The Last 30 Days -- no previous admission in last 30 days Equipment Needed After Discharge -- none Current Discharge Risk -- cognitively impaired Discharge Disposition -- still a patient Current Health Anticipated Changes Related to Illness -- none Activity/Self Care Review of Systems Equipment Currently Used at Home -- none Living Environment Transportation Available family or friend will provide -- Goal: Interdisciplinary Rounds/Family Conf Outcome: Ongoing (Interventions Implemented as Appropriate) 07/21/16340 Interdisciplinary Rounds/Family Conf Participants case coordinator;family;nursing;patient;physician;social work/services Problem: (Vaginal Delivery) (Adult) Goal: Signs and Symptoms of Listed Potential Problems Will be Absent, Minimized or Managed () Signs and symptoms of listed potential problems will be absent, minimized or managed by discharge/transition of care (reference (Vaginal Delivery) (Adult) CPG). Outcome: Ongoing (Interventions Implemented as Appropriate) 07/21/16918 (Vaginal Delivery) Problems Assessed ( Vaginal Delivery) all Problems Present ( Vaginal Delivery) none * Plan of Care - Cherry Villalba RN - 07/21/2016 5:30 AM EST Problem: Patient Care Overview Goal: Plan of Care Review Outcome: Ongoing (Interventions Implemented as Appropriate) 07/20/16200507/21/16 034 Plan of Care Review Progress -- progress toward functional goals is gradual Coping/Psychosocial Plan Of Care Reviewed With patient;mother -- OUTCOME EVALUATION NOTE: OUTCOME SUMMARY: Pain well controlled, patient not taking any PO pain medications this shift. . Patient independent with self care. Patient tolerating regular diet and taking in adequate PO fluids. Patient has been ambulating and voiding appropriately and without issues. Cognitive delay noted, which present some concerns about going home with a . emergency response coordinator already involved, Cassia Xie. PLAN MOVING FORWARD: Continue to encourage pumping Q2-3 hours, encourage ambulation, encourage regular voiding, support as needed INDIVIDUALIZED FALL PREVENTION INTERVENTIONS: Patient-specific fall risk factors per assessment: [current deficits]: None Assistance [level of assistance required for transfers and ambulation]: Independent Supervision [direct monitoring required during toileting and ADLs]: Indepedent Surveillance [continuous indirect monitoring]: Purposeful rounding Patient-specific fall prevention interventions for sensory deficits provided, if applicable: CPG GOAL OUTCOME EVALUATION: * Initial Assessments - Cinthya Penaloza MSW - 07/20/2016 8:47 AM EST Office of Care Management Initial Assessment [facility], [facility] reviewed record and discussed patient with Care Team. Source of Information: Pt Jerilyn; partner/FOB Simeon and Jerilyn's mother Daniela. Jerilyn's maternal grandmother was asleep in the room during this encounter. Introduced self/reviewed role; services accepted. Reason for Hospitalization: Jerilyn gave to baby girl Diana Friedman on 07/20 at 34+2 weeks gestation via . Past Medical History Diagnosis Date ??? ADHD (attention deficit hyperactivity disorder) ??? Major depression ??? Premature Born 4 months early Hospitalizations Within the Past 30 Days: None Anticipated Length Of Stay (If known): Two days post ; baby is currently in the ICN due to prematurity Current Decision-Making Capacity: Aruna presents with some mild cognitive limitations but is her own decision maker. Advance Care Planning: Pt is full code; did not discuss ADs at this time. Current Coping/Education/Information Needs: Jerilyn and Simeon seem happy about their new baby. Current Functional Ability: Normal. Functional Status Prior to Admission: Normal. Home Environment: Jerilyn and Simeon live together in their own place in [place], [place] and Diana istheir first child together. Simeon has two older children ages 11 and 7 which he has contact with butare not living with him. He alluded to child protection involvement based on his ex girlfriend but did not elaborate. Jerilyn is not working and Simeon is a vegetable preparer. Social & Family Supports/Community Resources: Jerilyn has good support from her side of the family and they are aware of the services offered through the [facility] She has a maintenance service technician named Cassia Xie. Behavioral Health History: Jerilyn has a history of depression and ADHD but denies any concern for PPD. She is taking concerta for ADHD. Substance Use/Abuse: None Other Pertinent/Service Specific Information: N/A Health/Prescription Coverage: Primary Insurance: [place] Medicaid Secondary Insurance: N/A Prescription Coverage: [place] [employer] Preferred Pharmacy: [facility] Other: N/A Primary Care Provider: Unknown None Patient/Caregiver Goals of Treatment: To stay local while her baby is in the ICN. Potential Needs for Transition of Care: Rehab/SNF: N/A Home Health: [facility] if recommended DME: Pt needs a breast pump; will need to fruit picker at [facility]. Family would like to know if they can pick it up on [facility]. Dialysis: N/A Community Resources: [facility] Transportation: Pt has transportation Other: N/A Anticipated Barriers to Discharge/Special Considerations: None at this time. Plan: Provide support as needed through discharge. A member of the Care Management team will continue to monitor progress, follow for continuity of care and assist with transition of care planning. URBANO ELLER, [facility] Pager: [phone] * L&D Delivery Note - Latisha Rodriguez MD - 07/20/2016 7:38 AM EST Delivery Note Aruna Friedman is a 21 y.o. year old woman at 34w2d weeks gestational age, admitted with PPROM and induced with IV pitocin. She used an epidural for analgesia. She was found to be complete at 0537 with the presenting part at +3 station. She pushed for 1 hour.The 's head was delivered in a controlled fashion. There was no nuchal cord. The body was delivered without incident. A viable female was delivered and the infant was bulb suctioned and dried while 45 seconds passed for delayed cord clamping. The cord was then double clamped and cut and the was handed to awaiting Pediatricians who assigned APGARS of 5 and 9 at 1 and 5 minutes and had a weight of 2500g. Cord blood was taken and cord gases were obtained. The fundus became firmwith massage and pitocin. The placenta delivered spontaneously after 4 minutes and on inspection was intact with a 3-vessel cord. Within 5 minutes of placenta delivery, a Liletta IUD was inserted to the fundus. An abdominal ultrasound confirmed placement in the fundus. Inspection of the vagina and perineum revealed a vaginal laceration and left labial laceration which was repaired with 3-0 vicrylsuture. No complications. Blood loss estimated at 400ccs. She was in stable condition after delivery. The was brought to the intensive care nursery. Ester Cool MD I was present for the entire delivery and agree with documentation above. LATISHA RODRIGUEZ MD Information for the patient's : Elder, Baby Girl [[id number]] DELIVERY SUMMARY FOR Baby Girl Elder (please note there is a separate summary for each fetus) 07/20/2016 6:47 AM by Vaginal, Spontaneous Delivery Sex: female Gestational Age: 34w2d Labor Events labor?: Yes GBS colonized: unknown Cervical ripening date/time: Cervical ripening type Rupture date/time: Labor onset type: induction of labor Induction methods: Oxytocin, Gutiérrez/EASI Augmentation: Oxytocin Labor onset date/time: 07/20/16 0000 Labor Event Times Labor onset date/time: 07/20/16 0000 Dilation complete date/time: 07/20/16 0537 Start pushing date/time: 07/20/2016 0620 Mother Delivery No data filed Delivery () Delivery Date: 07/20/16 Delivery Time: 646 Sex: Female Attempted ?: No Delivery Type: Vaginal Delivery Type (Specific): Vaginal, Spontaneous Delivery Shoulder Dystocia Shoulder dystocia present?: No Delivery Information Delivery Location: delivery room Delivering Clinician: ESTER COOL ICN Staff Present: Yes Other Personnel: Provider Role CHANDRIKA JACOB Delivery Nurse LATISHA RODRIGUEZ Triple Valve Mechanic IONA DIAZ Delivery Assist Anesthesia Method: Epidural Cord Vessels: 3 Vessels Cord Blood Disposition: Lab Gases Sent?: Yes Assessment & APGARS Living status: Yes Apgars 1 Minute: 5 Minute: 10 Minute 15 Minute 20 Minute Skin Color: 0 1 Heart Rate: 2 2 Reflex Irritability: 1 2 Muscle Tone: 1 2 Respiratory Effort: 1 2 Total: 5 9 Apgars Assigned By: Isaura BOND APRN Resuscitation Method: Suctioning Suctioning Method: Bulb syringe Resuscitation Comment: CPAP x 1 min Maternal Feeding and Skin to Skin Maternal Choice for (s) Feeding on Admission: Pumping with Formula Supplementation Skin to skin initiation date/time: Medications No data filed Measurements Weight: 2500 g Placenta Date and Time: 07/20/2016 0651 Removal: Spontaneous Appearance: Intact Labor Length No data filed * Consult Note - Betty Nazario - 07/19/2016 4:52 PM EST consult: We were asked by the obstetrical service to provide consultation on Aruna Friedman, a 21 y.o. old patient on the birthing pavilion at 34w1d gestation with PPROM, currently undergoing induction of labor. I have reviewed the patient's history, both in the chart and obtained an oral history from the patient and her mother. She was referred as a maternal- transfer from [facility]. I met with Aruna and her boyfriend, her mother and her grandmother to discuss the delivery and management of infant born at 34 weeks gestation. Relevant History: Her has been complicated by: 1. Straight umbilical cord: last scan 07/15/16 see below 2. Depression 3. ADHD 4. Contraception: desires Nexplanon 5. Learning disability, makes her medical decisions 6. Was unable to tolerate her glucola Social History: Of note Aruna was a premature herself, born at 24w5d. Aruna lives with her boyfriend. She is unemployed. Her boyfriend works as a prep oil tank car cleaner. He has two older children from a different relationship; they are 7 and 11. Both half siblings are reportedly healthy. She is not clear whether this man is the father of her baby and is asking for a paternity test oncethe child is born. This is a baby girl, who she plans to name Diana Suarez Recommendations and advice discussed: We discussed specific management likely for the anticipated problems of prematurity like resuscitation and stabilization after delivery, feeding issues, apnea of prematurity, jaundice, probable length of stay and the criteria for discharge to home. At this gestation with steroids, there is a low risk for serious problems of pulmonary immaturity, intraventricular hemorrhage or retinopathy of prematurity. Survival is nearly 100% in the absence of problems in addition to the prematurity. We discussed general issues of intensive care, including team composition, philosophy of parents as collaborators and active participants in patient care as well as policies regarding rounds, visitation by family members and friends. Parents asked appropriate question which were addressed during our discussion. Thank you for requesting consultation by the neonatology service. We will continue to follow coursealong with you. Betty Nazario MD Neonatology Fellow Department of - Medicine Pager # [phone] 07/19/2016 4:53 PM documented in this encounter Plan of Treatment Not on file documented as of this encounter Procedures Procedure Name Priority Date/Time Associated Diagnosis Comments SPECIMEN TO PATHOLOGY (NON-OR) Routine 07/20/2016 7:48 AM EST SURGICAL PATHOLOGY REPORT Routine 07/20/2016 7:48 AM EST POCT GLUCOSE Routine 07/19/2016 7:33 AM EST GC/CHLAMYDIA Routine 07/19/2016 5:30 AM EST GC/CHLAM Routine 07/19/2016 5:30 AM EST URINALYSIS WITH REFLEX CULTURE Routine 07/19/2016 3:00 AM EST ABORH RECHECK STATUS Routine 07/19/2016 1:40 AM EST HEMOGRAM Routine 07/19/2016 1:40 AM EST DIFFERENTIAL, AUTOMATED Routine 07/19/2016 1:40 AM EST ABO/RH TYPING Routine 07/19/2016 1:40 AM EST RUBELLA ANTIBODY, IGG Routine 07/19/2016 1:40 AM EST CBC (WITH DIFF) Routine 07/19/2016 1:40 AM EST ANTIBODY SCREEN Routine 07/19/2016 1:40 AM EST TYPE AND SCREEN ([facility]/MICHAEL) Routine 07/19/2016 1:40 AM EST VARICELLA ZOSTER ANTIBODY, IGG Routine 07/19/2016 1:40 AM EST GROUP B STREPTOCOCCUS SCREEN Routine 07/19/2016 12:03 AM EST GROUP B STREP CULTURE SCREEN Routine 07/19/2016 12:03 AM EST documented in this encounter Results * Surgical Pathology Report (07/20/2016 7:48 AM EST) Final Diagnosis [id number] ?Location: ; 09; B The signing pathologist has (i) examined the relevant preparation(s) for the specimen(s) and (ii) rendered or confirmed the diagnosis(es). . ?Surgical Pathology DIAGNOSIS A - Third trimester placenta, 34 weeks, 360 grams, 25th-50th percentile: ? 1. ??Unremarkable amnion and chorion ? 2. ??Villous maturation appropriate for gestational age ? 3. ??Unremarkable decidua ? 4. ??Unremarkable three vessel umbilical cord Electronically signed by: ??Mary Jo WELLS, Desmond Saucedo Verified: ??07/22/2016 ?Pathologist CLINICAL INFORMATION Specimen Submitted: A - Placenta Clinical History: PPROM at 34 weeks Clinical Diagnosis: Same SPECIMEN PROCESSING Labeled/Fixative : Placenta, fresh. Qty/Size/Weight: Single, 19.4 x 14.7 x 2.1 cm, 360 g. Tissue Description: Intact discoid, hernandez placenta with attached umbilical cord and membranes. Membranes: 100 percent marginal, huston-pink, semi-translucent and glistening. Cord: 28.5 x 1.3 cm, huston-white glistening and focally congested; three vessels; eccentric insertion located 3.1 cm from the nearest placental margin. Surface: Purple-blue, smooth glistening with minimal amount of subchorionic fibrin deposition. ??There is a 10.2 x 7.3 cm area of subchorionic hemorrhage located adjacent to the umbilical insertion site. Maternal Surface: Well formed and complete cotyledons. Parenchyma: Dark red-purple, spongy parenchyma with no distinct lesions identified. Sections/Process ing: (1) membrane roll; (2) proximal and distal cord; (3-5) full thickness parenchyma. (R5) ??jwb 07/22/2016 12:11 PM EST [facility] TISSUE SPECIMEN FROM PLACENTA / Unknown 07/20/2016 7:48 AM EST 07/20/2016 7:48 AM EST Ester Cool MD PATHOLOGY/CYTOLOGY O NELSON Performing Organization Address [facility] Co de Phone Number [facility] [place] [address] * Specimen to Pathology (NON-OR) (07/20/2016 7:48 AM EST) AP Specimen 07/20/2016 7:48 AM EST 07/20/2016 7:48 AM EST Narrative [facility] - 07/20/2016 7:48 AM EST Specimen requisition ordered. ??Separate Pathology report to follow Latisha Rodriguez MD PATHOLOGY/CYTOLOGY O NELSON Performing Organization Address [facility] Co de Phone Number [facility] [place] [address] * POCT Glucose (07/19/2016 7:33 AM EST) Glucose, POC 94 65 - 199 mg/dL [facility] Comment: Supplemental ranges: <140 mg/dL before meals <180 mg/dL all other times of the day Blood specimen (specimen) 07/19/2016 7:33 AM EST 07/19/2016 7:33 AM EST Latisha Rodriguez MD POINT OF CARE TEST O NELSON Performing Organization Address [facility] Co de Phone Number [facility] [place] [address] * GC/Chlam (07/19/2016 5:30 AM EST) GC Gene Amp Negative Negative [facility] Comment: The only FDA approved specimen types for this assay are cervix, vagina, urethra and urine. GC Source Urine [facility] Chlamydia Gene Amp Negative Negative [facility] Comment: The only FDA approved specimen types for this assay are cervix, vagina, urethra and urine. Chlm Source Urine [facility] Urine specimen (specimen) 07/19/2016 5:30 AM EST 07/19/2016 7:25 AM EST Narrative Resulting Agency Comment Spec In Lab Latisha Rodriguez MD MICROBIOLOGY - GENER AL ORDERABLES [facility] [place] [address] * (ABNORMAL) Urinalysis with reflex Culture (07/19/2016 3:00 AM EST) Pathologist [facility] Glucose, Urine Dipstick Negative Negative mg/dL [facility] Protein, Urine Dipstick 30(A) Negative mg/dL [facility] Bilirubin, Urine Dipstick Negative Negative mg/dL [facility] Comment: Clinical correlation required for positive Urine Bilirubin results as false positive may occur with some drugs and drug related products. If a false positive is suspected a serum total bilirubin should be considered if clinically indicated. Urobilinogen, Urine Dipstick 2.0(A) Normal mg/dL [facility] pH, Urn (dipstick) 6.0 5.0 - 8.0 [facility] Blood, Urine Dipstick Negative Negative mg/dL [facility] Ketone, Urine Dipstick Negative Negative mg/dL [facility] Nitrite, Urine Dipstick Negative Negative [facility] Leukocytes, Urine Dipstick Negative Negative [facility] Appearance, Urine Dipstick Clear Clear [facility] Specific Burton Urine Automated 1.030 1.002 - 1.030 [facility] Color, Urine Dipstick Karissa Yellow [facility] RBC, Urine 3 0 - 4 /HPF [facility] WBC, Urine 3 0 - 5 /HPF [facility] Bacteria, Urine Rare(A) None /HPF [facility] Squamous Epithelial Cells, Urine 2 <=4 /HPF [facility] Amorphous Crystals, Urine Rare(A) None /HPF [facility] Reflex to Culture No [facility] Urine specimen obtained by clean catch procedure (specimen) 07/19/2016 3:00 AM EST 07/19/2016 4:16 AM EST Narrative Resulting Agency Comment Spec In Lab Latisha Rodriguez MD URINE ORDERABLES Performing Organization Address [facility] Co de Phone Number [facility] [place] [address] * ABORH Recheck Status (07/19/2016 1:40 AM EST) ABORH Type Recheck Completed [facility] Blood specimen (specimen) 07/19/2016 1:40 AM EST 07/19/2016 1:54 AM EST Narrative Resulting Agency Comment Spec In Lab Latisha Rodriguez MD BLOOD BANK LAB ORDER NINI Performing Organization Address [facility] Co de Phone Number [facility] [place] [address] * (ABNORMAL) Differential, Automated (07/19/2016 1:40 AM EST) Neutrophil % 85.0 % [facility] Neutrophil Absolute 10.81(H) 1.70 - 6.10 x10(3)/mc L [facility] Lymph % 11.7 % [facility] Lymphocytes Abs 1.5 0.9 - 3.2 x10(3)/mc L [facility] Monocyte % 1.3 % [facility] Monocyte Abs 0.2(L) 0.3 - 0.9 x10(3)/ L [facility] Eos % 0.0 % [facility] Eosinophils Abs 0.0 0.0 - 0.4 x10(3)/[facility] LABORATORY Basophil % 0.2 % [facility] Baso Absolute 0.0 0.0 - 0.1 x10(3)/[facility] LABORATORY Immature Gran % 1.80 % [facility] Comment: Immature granulocytes(IG's)percentage and absolute count will include metamyelocytes, myelocytes, and promyelocytes. Blood smears from CBCs yielding IG's will be scanned manually for concordance. If this scan disagrees with the automated IG or if promyelocytes are noted, a manual differential will be performed. Immature Gran Absolute 0.23(H) 0.00 - 0.04 x10(3)/[facility] LAB[facility]ATORY Blood specimen (specimen) 07/19/2016 1:40 AM EST 07/19/2016 1:48 AM EST Narrative Resulting Agency Comment Spec In Lab Latisha Rodriguez MD HEMATOLOGY ORDERABLE S [facility] [place] [address] * (ABNORMAL) Hemogram (07/19/2016 1:40 AM EST) White Blood Cell 12.7(H) 4.0 - 9.5 x10(3)/[facility] LAB[facility]ATORY Red Blood Cell 3.82(L) 4.00 - 5.21 x10(6)/[facility] Hemoglobin 11.6(L) 11.7 - 15.5 gm/dL [facility] Hematocrit 34.3(L) 35.7 - 45.8 % [facility] Mean Cell Volume 89.8 82.6 - 94.4 fL [facility] Mean Cell Hemoglobin 30.4 27.1 - 32.0 pg [facility] Mean Cell Hemoglobin Concentration 33.8 31.7 - 35.0 gm/dL [facility] Platelet 213 145 - 357 x10(3)/mc L [facility] RDW Standard Deviation 40.0 37.0 - 46.0 [facility]ATORY RDW coefficient of variation 12.2 11.5 - 14.1 % [facility] Mean Platelet Volume 11.9 7.6 - 12.9 [facility] LAB[facility]ATORY NRBC% auto 0.0 % [facility] NRBC Absolute 0.000 0.000 - 0.000 x10(3)/mc L [facility] Blood specimen (specimen) 07/19/2016 1:40 AM EST 07/19/2016 1:48 AM EST Narrative Resulting Agency Comment Spec In Lab Latisha Rodriguez MD HEMATOLOGY ORDERABLE S [facility] [place] [address] * Antibody screen (07/19/2016 1:40 AM EST) Ab Screen Interp Negative [facility] Expires at [id number] on: 07/22/2016 [facility] Blood specimen (specimen) 07/19/2016 1:40 AM EST 07/19/2016 1:54 AM EST Narrative Resulting Agency Comment Spec In Lab Latisha Rodriguez MD BLOOD BANK LAB ORDER NINI [facility] [place] [address] * ABO/Rh Typing (07/19/2016 1:40 AM EST) ABORH Type O Pos [facility] Blood specimen (specimen) 07/19/2016 1:40 AM EST 07/19/2016 1:54 AM EST Narrative Resulting Agency Comment Spec In Lab Latisha Rodrigeuz MD BLOOD BANK LAB ORDER NINI Performing Organization Address [facility] de Phone Number [facility] [place] [address] * Rubella Antibody, IgG (07/19/2016 1:40 AM EST) Rubella Antibody IgG Positive Positive [facility] Comment: Please note: ??A positive result for this assay indicates that antibody levels are >or= 10.0 IU/mL and is considered to be an indicator of positive immune status. Blood specimen (specimen) 07/19/2016 1:40 AM EST 07/19/2016 1:48 AM EST Narrative Resulting Agency Comment Spec In Lab Latisha Rodriguez MD CHEMISTRY ORDERABLES Performing Organization Address [facility] de Phone Number [facility] [place] [address] * Varicella zoster Antibody, IgG (07/19/2016 1:40 AM EST) Varicella Zoster Antibody IgG Pos [facility] Blood specimen (specimen) 07/19/2016 1:40 AM EST 07/19/2016 7:09 AM EST Narrative Resulting Agency Comment Spec In Lab Latisha Rodriguez MD IMMUNOLOGY ORDERABLE S Performing Organization Address [facility] de Phone Number [facility] [place] [address] * Group B Streptococcus Screen (07/19/2016 12:03 AM EST) GBS Screen Pos [facility] Pooled specimen from vaginal introitus and rectal swab (specimen) 07/19/2016 12:03 AM EST 07/19/2016 7:26 AM EST Comment:Already received 1 d ose of penicillin at [facility] Narrative Resulting Agency Comment Spec In Lab Latisha Rodriguez MD MICROBIOLOGY - GENER AL ORDERABLES Performing Organization Address City/[facility]/ZIP Co de Phone Number [facility] [place] [address] * (ABNORMAL) Group B Strep Culture Screen (07/19/2016 12:03 AM EST) Group B Streptococcus Culture Beta Hemolytic Streptococci, Group B isolated(A) [facility] Organism Beta Hemolytic Streptococci, Group B(A) [facility] Pooled specimen from vaginal introitus and rectal swab (specimen) 07/19/2016 12:03 AM EST 07/19/2016 7:26 AM EST Comment:ALREADY RECEIVED 1 D OSE OF PENICILLIN AT [facility] Narrative Resulting Agency Comment Spec In Lab Latisha Rodriguez MD MICROBIOLOGY - GENER AL ORDERABLES Performing Organization Address [facility] Co de Phone Number [facility] [place] [address] documented in this encounter Visit Diagnoses Diagnosis premature rupture of membranes (PPROM) with unknown onset of labor- Primary premature rupture of membranes (PPROM) with unknown onset of labor ADHD (attention deficit hyperactivity disorder), combined type Attention deficit disorder with hyperactivity Contraception Unspecified contraceptive management documented in this encounter Admitting Diagnoses Diagnosis premature rupture of membranes (PPROM) with unknown onset of labor documented in this encounter Administered Medications Inactive Administered Medications - up to 3 most recent administrations Medication Order MAR Action Action Date Dose Rate Site acetaminophen (TYLENOL) tablet 1,000 mg 1,000 mg, Oral, EVERY 6 HOURS PRN, Starting on Mon07/20/16 at 0805, Until Mon07/22/16 at 1511, Pain, - Moderate pain (pain scale 4-6). - Maximum dose of acetaminophen is 4000 mg from all sources in 24 hours., Recovery (Recovery-Hospital Unit), Routine acetaminophen (TYLENOL) tablet 325 mg 325 mg, Oral, EVERY 4 HOURS PRN, Starting on Mon07/19/16 at 0129, Until Mon07/20/16 at 0748, Pain, mild pain (1-3), Not exceed 4 grams per 24 hours, Routine Given 07/19/2016 6:56 PM EST 325 mg acetaminophen (TYLENOL) tablet 650 mg 650 mg, Oral, EVERY 4 HOURS PRN, Starting on Mon07/20/16 at 0805, Until Mon07/22/16 at 1511, Pain, - Mild pain (pain scale 1-3) - Maximum dose of acetaminophen is 4000 mg from all sources in 24 hours., Recovery ([facility]ospital Unit), Routine ampicillin 2g vial attach to sodium chloride 0.9% 100 mL Mini-Bag Plus 2,000 mg (2 g), Intravenous, EVERY 6 HOURS, 8 doses, First dose on Mon07/19/16 at 0145, Last dose on Mon07/20/16 at 1945, Administer over 15 Minutes, Warning Vesicant/Irritant Medication , Indication for (Active or Suspected): Prophylaxis Given 07/19/2016 1:58 AM EST 2,000 mg 400 mL/hr azithromycin (ZITHROMAX) tablet 1,000 mg 1,000 mg, Oral, ONCE, 1 dose, On Mon07/19/16 at 0145, Routine, Indication for (Active or Suspected): Prophylaxis Given 07/19/2016 3:34 AM EST 1,000 mg betamethasone acetate-betamethasone sodium phosphate (CELESTONE) injection 12 mg 12 mg, Intramuscular, ONCE, 1 dose, On Mon07/19/16 at 2130, Routine Given 07/19/2016 9:43 PM EST 12 mg docusate sodium (COLACE) capsule 100 mg 100 mg, Oral, 2 TIMES DAILY, First dose on Mon07/20/16 at 0900, Until Discontinued, Routine Given 07/21/2016 9:45 PM EST 100 mg Given 07/21/2016 9:28 AM EST 100 mg fentaNYL (PF) 50 mcg/mL injection 1 dose, Starting on Mon07/20/16 at 0019, Until Mon07/20/16 at 0024, CHANDRIKA JACOB: cabinet override fentaNYL 2 mcg/mL, BUpivacaine (MARCAINE) 0.125% (1.25 mg/mL)(1/8%) in sodium chloride 0.9% 250 mL epidural Epidural, Patient Controlled Epidural Analgesia (PCEA): 5 mL, PCEA Frequency: Every 20 minutes, Maximum rate for continuous infusion 14 mL per hour Maximum total epidural rate (continuous and PCEA bolus) is 25 mL per hour New Bag 07/20/2016 12:30 AM EST 10 mL/hr 10 mL/hr fentaNYL 50mcg/mL injection 50 mcg, Intravenous, ONCE, 1 dose, On Mon07/20/16 at 0045, STAT Given 07/20/2016 12:24 AM EST 50 mcg EDEN SUPPLIED device levonorgestrel (LILETTA) 18.6 mcg/24 hr IUD 1 Intra Uterine Device, Intrauterine, ONCE, 1 dose, On Mon07/20/16 at 1145, Routine, Please indicate which eden (name) supplied this device: HEATHER Inserted 07/20/2016 6:50 AM EST 1 Intra Uterine Device ibuprofen (ADVIL;MOTRIN) tablet 600 mg 600 mg, Oral, EVERY 6 HOURS PRN, Starting on Mon07/20/16 at 0805, Until Mon07/22/16 at 1511, Pain, - Do not give if receiving ketorolac. - Mild to moderate pain (pain scale 1-6) - Maximum dose of 3,200 mg from all sources in 24 hours., Recovery (Recovery-Hospital Unit), Routine ibuprofen (ADVIL;MOTRIN) tablet 800 mg 800 mg, Oral, EVERY 8 HOURS PRN, Starting on Mon07/20/16 at 0805, Until Mon07/22/16 at 1511, Pain, - Do not give if receiving ketorolac. - Severe pain (pain scale 7-10). - Maximum dose of 3,200 mg from all sources in 24 hours., Recovery ([facility]ospital Unit), Routine lactated ringers infusion 1,000 mL 1,000 mL, at 100 mL/hr, Intravenous, CONTINUOUS, Starting on Mon07/19/16 at 0145, Until Mon07/20/16 at 0747 New Bag 07/19/2016 10:43 AM EST 1,000 mLs 100 mL/hr New Bag 07/19/2016 3:46 AM EST 1,000 mLs 100 mL/hr methylphenidate (CONCERTA) CR tablet 72 mg 72 mg, Oral, EVERY MORNING, First dose on Mon07/20/16 at 0700, Until Discontinued, DO NOT CRUSH OR OPEN, Routine Given 07/22/2016 7:54 AM EST 72 mg Given 07/21/2016 9:28 AM EST 72 mg Given 07/20/2016 7:53 AM EST 72 mg nalbuphine (NUBAIN) injection 1 mg 1 mg, Intravenous, EVERY 15 MIN PRN, Itching, Starting on Mon07/20/16 at 0247, Until Mon07/22/16 at 151, If not effective, may repeat once after 30 minutes with each 4 hour dosing interval. Do not exceed 10 mg in 24 hours, Recovery (Recovery-Hospital Unit) naloxone (NARCAN) injection 0.2 mg 0.2 mg, Intravenous, EVERY 1 MIN PRN, Starting on Mon07/20/16 at 024, Until Mon07/22/16 at 1511, Opioid Reversal, If respiratory rate less than 6 OR the patient is unable to arouse OR SpO2 is declining, Give for respiratory rate of less than or equal to 6 and patient is heavily sedated or unarousable. May repeat every 60 seconds to increase respiratory rate. DO NOT exceed 2 mg total dose. Per Epidural order., Recovery (Recovery[facility]Hospital Unit), Routine ondansetron (ZOFRAN) injection 4 mg 4 mg, Intravenous, EVERY 8 HOURS PRN, Starting on Mon07/20/16 at 024, Until Mon07/22/16 at 1511, Nausea, Vomiting, PO Preferred. If patient unable to take PO, may give IV if ordered May repeat times one in 30 minutes if ineffective., Recovery (Recovery[facility]Hospital Unit) ondansetron (ZOFRAN) tablet 4 mg 4 mg, Oral, EVERY 8 HOURS PRN, Starting on Mon07/20/16 at 024, Until Mon07/22/16 at 1511, Nausea, Vomiting, PO Preferred. If patient unable to take PO, may give IV if ordered. May repeat times one in 45 minutes if ineffective., Recovery (Recovery-Hospital Unit), Routine oxytocin (PITOCIN) 30 units in sodium chloride 0.9% 500 mL infusion 1-40 oniel-units/min (1-40 mL/hr), Intravenous, CONTINUOUS, Starting on Mon07/19/16 at 0245, Until Mon07/20/16 at 0747, Piggyback into Lactated Ringers; Start at 2 milliunits/minute and increase by 2 milliunits/minutes every 30 minutes to achieve contractions that are every 2-3 minutes, lasting 60-90 seconds with 1 minute resting tone between contractions palpating strong. Oxytocin may not be initiated until: - 1 hour after Cervidil is removed - 4 hours after last minute misoprostol dose is given, Routine Rate/Dose Change 07/19/2016 10:33 PM EST 18 oniel-units/min 18 mL/hr Rate/Dose Change 07/19/2016 9:32 PM EST 16 oniel-units/min 16 mL/hr Rate/Dose Change 07/19/2016 9:00 PM EST 14 oniel-units/min 14 mL/hr oxytocin (PITOCIN) 30 units in sodium chloride 0.9% 500 mL infusion 30 Units (500 mL), Intravenous, at 500 mL/hr, Administer over 1 Hours, ONCE, 1 dose, On Mon07/20/16 at 0815, ., Routine New Bag 07/20/2016 6:50 AM EST 30 Units 500 mL/hr pediatric multivitamin pedi chewable tablet 1 tablet 1 tablet, Oral, DAILY, First dose on Mon07/19/16 at 0900, Until Discontinued Given 07/19/2016 10:42 AM EST 1 tablet penicillin G potassium 3 million units in dextrose 5% 50 mL 3 Million Units, Intravenous, EVERY 4 HOURS SCHEDULED, First dose on Mon07/19/16 at 0600, Until Discontinued, Administer over 60 Minutes, Warning Vesicant/Irritant Medication , Indication for (Active or Suspected): Prophylaxis Given 07/20/2016 3:02 AM EST 3 Million Units 50 mL/hr Given 07/20/2016 12:39 AM EST 3 Million Units 50 mL/h r Given 07/19/2016 8:32 PM EST 3 Million Units 50 mL/hr documented in this encounter Active and Recently Administered Medications Times are shown in EST. Scheduled Medication Order 07/20/2016 07/21/2016 07/22/2016 docusate sodium (COLACE) capsule 100 mg 100 mg, Oral, 2 TIMES DAILY, First dose on Mon07/20/16 at 0900, Until Discontinued, Routine 0900 (Due)2100 (Not Given - Provider: Cherry Villalba RN - Reason: Patient/family refused) 0928 (Given - Provider: Emily Umaña RN)2145 (Given - Provider: Yarely Quintana RN) 0900 (Due) fentaNYL 50mcg/mL injection (COMPLETED) 50 mcg, Intravenous, ONCE, 1 dose, On Mon07/20/16 at 0045, STAT 0024 (Given - Provider: Chandrika Jacob RN)0045 (Due) [employer] SUPPLIED device levonorgestrel (LILETTA) 18.6 mcg/24 hr IUD (COMPLETED) 1 Intra Uterine Device, Intrauterine, ONCE, 1 dose, On Mon07/20/16 at 1145, Routine, Please indicate which eden (name) supplied this device: HEATHER 0650 (Inserted - Provider: Leatha Sanches RN) methylphenidate (CONCERTA) CR tablet 72 mg 72 mg, Oral, EVERY MORNING, First dose on Mon07/20/16 at 0700, Until Discontinued, DO NOT CRUSH OR OPEN, Routine 0753 (Given - Provider: Leatha Sanches RN) 0928 (Given - Provider: Emily Umaña RN) 0754 (Given - Provider: Tawanda Solomon) oxytocin (PITOCIN) 30 units in sodium chloride 0.9% 500 mL infusion (COMPLETED) 30 Units (500 mL), Intravenous, at 500 mL/hr, Administer over 1 Hours, ONCE, 1 dose, On Mon07/20/16 at 0815, ., Routine 0650 (New Bag - Provider: Leatha Sanches RN) penicillin G potassium 3 million units in dextrose 5% 50 mL (CANCELED) 3 Million Units, Intravenous, EVERY 4 HOURS SCHEDULED, First dose on Mon07/19/16 at 0600, Until Discontinued, Administer over 60 Minutes, Warning Vesicant/Irritant Medication , Indication for (Active or Suspected): Prophylaxis 0039 (Given - Provider: Chandrika Jacob RN)0302 (Given - Provider: Chandrika Jacob RN - Comment: previous dose did not infuse) sodium chloride 0.9 % flush 5 mL 5 mL, Intravenous, 2 TIMES DAILY, First dose on Mon07/19/16 at 0145, Until Discontinued, Routine 0900 (Due)2100 (Not Given - Provider: Cherry Villalba RN - Reason: Loss of access) 0900 (Not Given - Provider: Emily Umaña RN - Reason: Loss of access)2100 (Due) 0900 (Due) Continuous Medication Order 07/20/2016 07/21/2016 07/22/2016 fentaNYL 2 mcg/mL, BUpivacaine (MARCAINE) 0.125% (1.25 mg/mL)(1/8%) in sodium chloride 0.9% 250 mL epidural Epidural, Patient Controlled Epidural Analgesia (PCEA): 5 mL, PCEA Frequency: Every 20 minutes, Maximum rate for continuous infusion 14 mL per hour Maximum total epidural rate (continuous and PCEA bolus) is 25 mL per hour 0030 (New Bag - Provider: Chandrika Jacob RN) PRN Medication Order 07/20/2016 07/21/2016 07/22/2016 acetaminophen (TYLENOL) tablet 1,000 mg(Linked Group 1) 1,000 mg, Oral, EVERY 6 HOURS PRN, Starting on Mon07/20/16 at 0805, Until Mon07/22/16 at 1511, Pain, - Moderate pain (pain scale 4-6). - Maximum dose of acetaminophen is 4000 mg from all sources in 24 hours., Recovery (Recovery-Hospital Unit), Routine acetaminophen (TYLENOL) tablet 650 mg(Linked Group 1) 650 mg, Oral, EVERY 4 HOURS PRN, Starting on Mon07/20/16 at 0805, Until Mon07/22/16 at 1511, Pain, - Mild pain (pain scale 1-3) - Maximum dose of acetaminophen is 4000 mg from all sources in 24 hours., Recovery (Recovery-Hospital Unit), Routine calcium carbonate (TUMS) chewable tablet 1,000 mg 1,000 mg (2 tablet), Oral, EVERY 4 HOURS PRN, Starting on Mon07/19/16 at 0129, Until Mon07/22/16 at 1511, Heartburn, If both calcium carbonate (TUMS) and alum-mag hydroxide-simeth (MAALOX) ordered, administer calcium carbonate (TUMS) first, if ineffective administer alum-mag hydroxide-simeth (MAALOX)., Routine ibuprofen (ADVIL;MOTRIN) tablet 600 mg(Linked Group 2) 600 mg, Oral, EVERY 6 HOURS PRN, Starting on Mon07/20/16 at 0805, Until Mon07/22/16 at 1511, Pain, - Do not give if receiving ketorolac. - Mild to moderate pain (pain scale 1-6) - Maximum dose of 3,200 mg from all sources in 24 hours., Recovery (Recovery-Hospital Unit), Routine ibuprofen (ADVIL;MOTRIN) tablet 800 mg(Linked Group 2) 800 mg, Oral, EVERY 8 HOURS PRN, Starting on Mon07/20/16 at 0805, Until Mon07/22/16 at 151, Pain, - Do not give if receiving ketorolac. - Severe pain (pain scale 7-10). - Maximum dose of 3,200 mg from all sources in 24 hours., Recovery (Recovery-Hospital Unit), Routine nalbuphine (NUBAIN) injection 1 mg 1 mg, Intravenous, EVERY 15 MIN PRN, Itching, Starting on Mon07/20/16 at 024, Until Mon07/22/16 at 151, If not effective, may repeat once after 30 minutes with each 4 hour dosing interval. Do not exceed 10 mg in 24 hours, Recovery (Recovery-Hospital Unit) naloxone (NARCAN) injection 0.2 mg 0.2 mg, Intravenous, EVERY 1 MIN PRN, Starting on Mon07/20/16 at 024, Until Mon07/22/16 at 1510, Opioid Reversal, If respiratory rate less than 6 OR the patient is unable to arouse OR SpO2 is declining, Give for respiratory rate of less than or equal to 6 and patient is heavily sedated or unarousable. May repeat every 60 seconds to increase respiratory rate. DO NOT exceed 2 mg total dose. Per Epidural order., Recovery (Recovery-Hospital Unit), Routine ondansetron (ZOFRAN) injection 4 mg(Linked Group 3) 4 mg, Intravenous, EVERY 8 HOURS PRN, Starting on Mon07/20/16 at 024, Until Mon07/22/16 at 151, Nausea, Vomiting, PO Preferred. If patient unable to take PO, may give IV if ordered May repeat times one in 30 minutes if ineffective., Recovery (Recovery-Hospital Unit) ondansetron (ZOFRAN) tablet 4 mg(Linked Group 3) 4 mg, Oral, EVERY 8 HOURS PRN, Starting on Mon07/20/16 at 024, Until Mon07/22/16 at 151, Nausea, Vomiting, PO Preferred. If patient unable to take PO, may give IV if ordered. May repeat times one in 45 minutes if ineffective., Recovery (Recovery-Hospital Unit), Routine sodium chloride 0.9 % flush 5-20 mL 5-20 mL, Intravenous, EVERY 1 MIN PRN, Starting on Mon07/19/16 at 0129, Until Mon07/22/16 at 1511, flush, Flush pertains to all indwelling lines. Flush per protocol found in the job aid using the link provided on this medication record., Routine Linked Groups Order Group 1: acetaminophen (TYLENOL) tablet 650 mgJump to med 650 mg, Oral, EVERY 4 HOURS PRN, Starting on Mon07/20/16 at 0805, Until Mon07/22/16 at 151, Pain, - Mild pain (pain scale 1-3) - Maximum dose of acetaminophen is 4000 mg from all sources in 24 hours., Recovery (Recovery-Hospital Unit), Routine Or acetaminophen (TYLENOL) tablet 1,000 mgJump to med 1,000 mg, Oral, EVERY 6 HOURS PRN, Starting on Mon07/20/16 at 0805, Until Mon07/22/16 at 151, Pain, - Moderate pain (pain scale 4-6). - Maximum dose of acetaminophen is 4000 mg from all sources in 24 hours., Recovery (Recovery-Hospital Unit), Routine Group 2: ibuprofen (ADVIL;MOTRIN) tablet 600 mgJump to med 600 mg, Oral, EVERY 6 HOURS PRN, Starting on Mon07/20/16 at 0805, Until Mon07/22/16 at 151, Pain, - Do not give if receiving ketorolac. - Mild to moderate pain (pain scale 1-6) - Maximum dose of 3,200 mg from all sources in 24 hours., Recovery (Recovery-Hospital Unit), Routine Or ibuprofen (ADVIL;MOTRIN) tablet 800 mgJump to med 800 mg, Oral, EVERY 8 HOURS PRN, Starting on Mon07/20/16 at 0805, Until Mon07/22/16 at 1511, Pain, - Do not give if receiving ketorolac. - Severe pain (pain scale 7- 10). - Maximum dose of 3,200 mg from all sources in 24 hours., Recovery (Recovery- Hospital Unit), Routine Group 3: ondansetron (ZOFRAN) tablet 4 mgJump to med 4 mg, Oral, EVERY 8 HOURS PRN, Starting on Mon07/20/16 at 0247, Until Mon07/22/16 at 151, Nausea, Vomiting, PO Preferred. If patient unable to take PO, may give IV if ordered. May repeat times one in 45 minutes if ineffective., Recovery (Recovery-Hospital Unit), Routine Or ondansetron (ZOFRAN) injection 4 mgJump to med 4 mg, Intravenous, EVERY 8 HOURS PRN, Starting on Mon07/20/16 at 0247, Until Mon07/22/16 at 1511, Nausea, Vomiting, PO Preferred. If patient unable to take PO, may give IV if ordered May repeat times one in 30 minutes if ineffective., Recovery (Recovery-Hospital Unit) documented in this encounter Care Teams Industrial/Organizational Psychologist Relationship Specialty Start Date End Date Unknown None PCP - General 06/18/16 11/19/17 documented as of this encounter
--- OUTSIDE RECORDS SUMMARY | 2024-07-09 13:38 | XMS_ITS | Encounter Summary ---
Author Organization [facility] Address [address] [place] [address] Care Team Providers Care Therapist Radiation Name Role Phone Unknown, Provider Primary Care Provider Unadelonte ilable Encounter Details Date Type Department Care Team (Late st Contact Info) Description 12/22/2020 Lab Requisition [facility] Pathology & Laboratory Medicine - [facility] [address] [place] [address] Outr Resulting Lab, Provider Social History Tobacco [...] Procedure Name Priority Date/Time Associated Diagnosis Comments HIV 1/2 ANTIGEN AND ANTIBODY, 4TH GENERATION Routine 12/22/2020 14:55 EDT documented in this encounter Results * HIV 1/2 ANTIGEN AND ANTIBODY, 4TH GENERATION (12/22/2020 14:55 EDT) HIV 1 and 2 Antibody/p24 Antigen, 4th Generation Negative Negative 12/23/2020 10:12 EDT [facility] Comment: If acute HIV-1 infection is suspected in a high risk ??patient, submit plasma specimen for HIV-1 RNA quantitation test. Fourth Generation assay performed on the Siemens Modlaraur. Blood VENOUS BLOOD / Unknown 12/22/2020 14:55 EDT 12/22/2020 21:01 EDT us Provider Outr Resulting Lab IMMUNOLOGY AND SEROL OGY ORDERABLES Final Result Performing Organization Address City/State/[facility] Co de Phone Number [facility] [address] [place] [address] documented in this encounter Visit Diagnoses Not on filedocumented in this encounter Care Teams Therapist Radiation Relationship Specialty Start Date End Date Unknown, Provider, PCP - General 05/16/17 documented as of this encounter
--- OUTSIDE RECORDS SUMMARY | 2024-07-09 13:38 | XMS_ITS | Encounter Summary ---
Author Organization [facility] Address [address] [place] [address] Care Team Providers Care Assistant Men'S Lacrosse Coach Name Role Phone Unknown, Provider Primary Care Provider Unava ilable Encounter Details Date Type Department Care Team (Late st Contact Info) Description 12/22/2020 Lab Requisition [facility] Pathology & Laboratory Medicine - [address] [address] Outr Resulting Lab, Provider Social History Tobacco [...] REFLEX TO HCV RNA BY PCR Routine 12/22/2020 14:55 EDT HEPATITIS B SURFACE ANTIGEN Routine 12/22/2020 14:55 EDT documented in this encounter Results * HEPATITIS B SURFACE ANTIGEN (12/22/2020 14:55 EDT) Hep B Surface Ag Negative Negative 12/23/2020 9:19 EDT [facility] Blood VENOUS BLOOD / Unknown 12/22/2020 14:55 EDT 12/22/2020 21:01 EDT us Provider Outr Resulting Lab CHEMISTRY & BLOOD GA S ORDERABLES Final Result [facility] [address] [place] [address] * HEPATITIS C AB W REFLEX TO HCV RNA BY PCR (12/22/2020 14:55 EDT) Hep C Antibody Negative Negative 12/23/2020 9:47 EDT [facility] Blood VENOUS BLOOD / Unknown 12/22/2020 14:55 EDT 12/22/2020 21:01 EDT us Provider Outr Resulting Lab CHEMISTRY & BLOOD GA S ORDERABLES Final Result [facility] [address] [place] [address] documented in this encounter Visit Diagnoses Not on filedocumented in this encounter Care Teams Assistant Men'S Lacrosse Coach Relationship Specialty Start Date End Date Unknown, Provider, PCP - General 05/16/17 documented as of this encounter
--- OUTSIDE RECORDS SUMMARY | 2024-07-09 13:38 | XMS_ITS | Clinical Summary ---
Author Organization [facility] Address [address] [place] [id number] Care Team Providers Care Route Service Representative Name Role Phone Unknown, Provider Primary Care Provider Unava ilable Social History Tobacco Use Types Packs/Day Years Used Date Smoking Tobacco: Never Assessed Comments Unknown Sex and Gender Information Value Date Recorded Sex Assigned at Not on file Legal Sex Female 15:02 EST Gender Identity Not on file Sexual Orientation Not on file Plan of Treatment Health Maintenance Due Date Last Done Comments Hepatitis B Vaccine (1 of 3 - 19+ 3-dose series) 2015 COVID-19 Vaccine ( season) 2024 Hepatitis C Screen Completed 02/27/2023, 12/22/2020 Procedures Procedure Name Priority Date/Time Associated Diagnosis Comments HEPATITIS C AB W REFLEX TO HCV RNA BY PCR Routine 02/27/2023 10:50 EDT from Last 3 Months or Most Recently Relevant to Health Maintenance Results * HEPATITIS C AB W REFLEX TO HCV RNA BY PCR (02/27/2023 10:50 EDT) Hep C Antibody Negative Negative 02/28/2023 10:16 EDT [facility] Blood VENOUS BLOOD / Unknown 02/27/2023 10:50 EDT 02/27/2023 21:57 EDT us Provider Outr Resulting Lab CHEMISTRY & BLOOD GA S ORDERABLES Final Result [facility] [address] [place] [address] from Last 3 Months or Most Recently Relevant to Health Maintenance Insurance MEDICAID [place] Care Teams Route Service Representative Relationship Specialty Start Date End Date Unknown, Provider, PCP - General 05/16/17
--- OUTSIDE RECORDS SUMMARY | 2024-07-09 13:38 | XMS_ITS | Encounter Summary ---
Author Organization [facility] Address [facility] [place] [address] Care Team Providers Care Traffic Assistant Name Role Phone Timmy Dailey MD, Alec Primary Care Provider [phone] Reason for Visit * Reason Comments Ultrasound Encounter Details Date Type Department Care Team (Late st Contact Info) Description 04/26/2016 8:30 AM EST Office Visit Obstetrics [place] [address] Edvin Baldwin MD [facility] [address] OBSTETRICS [place] [address] Medication exposure during first trimester of Social [...] Sign Reading Time Taken Comments Blood Pressure 110/58 04/26/2016 8:44 AM EST Pulse - - Temperature - - Respiratory Rate - - Oxygen Saturation - - Inhaled Oxygen Concentration - - Weight 63.5 kg (140 lb) 04/26/2016 8:44 AM EST Height - - Body Mass Index 24.41 03/30/2016 1:05 PM EDT documented in this encounter Progress Notes * Edvin Baldwin MD - 04/26/2016 8:30 AM EST Gestational age: 22w1d, returns for follow-up ultrasound and limited MFM consult. Patient Active Problem List Diagnosis Date Noted ??? Major depressive disorder, recurrent episode, moderate (DEPRESSION) 05/15/2014 ??? YORK (headache) 02/13/2014 ??? ADHD (attention deficit hyperactivity disorder), combined type 02/13/2014 Ultrasound Date: 04/26/2016 Growth appropriate for gestational age Amniotic fluid volume normal Presentation cephalic Placenta posterior anatomy appears within normal limits Physical Exam BP 110/58 (BP Location (NBP): Right arm, Patient Position: Sitting, BP Cuff Sizes: Adult (25-34 cm)) Wt 63.5 kg (140 lb) BMI 24.41 kg/m2 General: alert, well appearing, in no apparent distress, oriented to person, place and time HEENT: normocephalic, atraumatic Abdomen: Gravid, soft, nontender Extremities: no edema Neurologic:alert, oriented, normal speech, no focal findings or movement disorder noted Psychiatric: Affect is Appropriate. Assessment and Recommendations: 20 y.o. year old female at 22w1d weeks gestation with normal appearing anatomy and growth. Local ultrasound at 32 weeks for growth, with referral back to [facility] if the growth is abnormal, due to some segments of straight umbilical cord. I appreciate the opportunity to be involved in this patients care, and am available if further questions should arise. Edvin BALDWIN MD 04/26/2016 Cc: Isatu Garzon, with copy of ultrasound report documented in this encounter Plan of Treatment Not on file documented as of this encounter Visit Diagnoses Diagnosis Medication exposure during first trimester of Supervision of other high-risk documented in this encounter Care Teams Traffic Assistant Relationship Specialty Start Date End Date Alec [place] [address] PCP - General 05/04/10 06/17/16 documented as of this encounter
--- OUTSIDE RECORDS SUMMARY | 2024-07-09 13:38 | XMS_ITS | Encounter Summary ---
Author Organization [facility] Address [address] [place] [address] Care Team Providers Care Fur Matcher Name Role Phone Unknown, Provider Primary Care Provider Unava ilable Encounter Details Date Type Department Care Team (Late st Contact Info) Description 02/27/2023 Lab Requisition [facility] Pathology & Laboratory Medicine - [facility] [address] [place] [address] Outr Resulting Lab, Provider Social History Tobacco [...] 1/2 ANTIGEN AND ANTIBODY, 4TH GENERATION Routine 02/27/2023 10:50 EDT documented in this encounter Results * HIV 1/2 ANTIGEN AND ANTIBODY, 4TH GENERATION (02/27/2023 10:50 EDT) HIV 1 and 2 Antibody/p24 Antigen, 4th Generation Negative Negative 02/28/2023 10:05 EDT [facility] Comment:If acute HIV-1 infec tion is suspected in a high risk patient, submit plasma specimen for HIV-1 RNA quantitation test. Blood VENOUS BLOOD / Unknown 02/27/2023 10:50 EDT 02/27/2023 21:57 EDT Narrative [facility] - 02/28/2023 10:05 EDT Fourth Generation assay performed on the Siemens Timecrosaur XPT. us Provider Outr Resulting Lab IMMUNOLOGY AND SEROL OGY ORDERABLES Final Result [facility] [address] [place] [address] documented in this encounter Visit Diagnoses Not on filedocumented in this encounter Care Teams Fur Matcher Relationship Specialty Start Date End Date Unknown, Provider, PCP - General 05/16/17 documented as of this encounter
--- OUTSIDE RECORDS SUMMARY | 2024-07-09 13:38 | XMS_ITS | Encounter Summary ---
[place] [address] Care Team Providers Care Surgical Instrument Technician Name Role Phone Timmy Dailey MD, Alec Primary Care Provider [phone] Reason for Visit * Reason Comments Other Encounter Details Date Type Department Care Team (Late st Contact Info) Description 02/21/2014 Telephone Psychiatry [place] [phone] Omero Williamson MD Social History Tobacco Use Types Packs/Day Years Used Date Smoking Tobacco: Light Smoker Cigarettes Sex and Gender Information Value Date Recorded Sex Assigned at Not on file Gender Identity Not on file Sexual Orientation Not on file documented as of this encounter Miscellaneous Notes * Telephone Encounter - Omero Williamson MD - 02/21/2014 2:16 PM EDT Attempted to call patient's therapist back to discuss the case. I was unable to reach her at the office or at the home number provided. Brief message left. * Telephone Encounter - Omero Williamson MD - 02/21/2014 2:14 PM EDT Message copied by OMERO WILLIAMSON on MonFeb 21, 2014 2:14 PM ------ Message from: BRADLEY TOLBERT Created: Tuyet Feb 20, 2014 2:55 PM Regarding: Return Call Vanessa Dunlap called in ref to the above pt Vanessa is at home and to call her there [phone] documented in this encounter Plan of Treatment Not on file documented as of this encounter Visit Diagnoses Not on filedocumented in this encounter Care Teams Surgical Instrument Technician Relationship Specialty Start Date End Date Alec Warner MD [address] [place] [address] [place] [address] PCP - General 05/04/10 06/17/16 documented as of this encounter
--- OUTSIDE RECORDS SUMMARY | 2024-07-09 13:38 | XMS_ITS | Encounter Summary ---
Author Organization [facility] Address [address] [place] [address] Care Team Providers Care Truck Packer Name Role Phone Unknown, Provider Primary Care Provider Unava ilable Encounter Details Date Type Department Care Team (Late st Contact Info) Description 12/22/2020 Lab Requisition [facility] Pathology & Laboratory Medicine - [facility] [address] [place] [address] Outr Resulting Lab, Provider Social History Tobacco [...] Procedure Name Priority Date/Time Associated Diagnosis Comments RUBELLA IGG ANTIBODY Routine 12/22/2020 14:55 EDT VARICELLA IGG ANTIBODY Routine 12/22/2020 14:55 EDT documented in this encounter Results * VARICELLA IGG ANTIBODY (12/22/2020 14:55 EDT) Varicella IgG Ab Negative See Note 12/23/2020 10:01 EDT [facility] Comment:Absence of detectabl e Varicella Zoster virus IgG antibodies. A negative result generally indicates no detectable antibody, but does not rule out acute infection. If VZV exposure is suspected, a second sample should be collected and tested no less than one or two weeks later. Blood VENOUS BLOOD / Unknown 12/22/2020 14:55 EDT 12/22/2020 21:01 EDT us Provider Outr Resulting Lab IMMUNOLOGY AND SEROL OGY ORDERABLES Final Result Performing Organization Address [facility]/ZIP Co de Phone Number [facility] [address] [place] [address] * RUBELLA IGG ANTIBODY (12/22/2020 14:55 EDT) Rubella IgG Ab Positive See Note 12/23/2020 10:02 EDT [facility] Comment:Positive for IgG ant ibodies to Rubella virus. Blood VENOUS BLOOD / Unknown 12/22/2020 14:55 EDT 12/22/2020 21:01 EDT us Provider Outr Resulting Lab CHEMISTRY & BLOOD GA S ORDERABLES Final Result Performing Organization Address [facility] Co de Phone Number [facility] [address] [place] [address] documented in this encounter Visit Diagnoses Not on filedocumented in this encounter Care Teams Truck Packer Relationship Specialty Start Date End Date Unknown, Provider, PCP - General 05/16/17 documented as of this encounter
--- OUTSIDE RECORDS SUMMARY | 2024-07-09 13:38 | XMS_ITS | Encounter Summary ---
Author Organization [facility] Address [address] [place] [address] Care Team Providers Care Dry Color Mixer Name Role Phone Unknown, Provider Primary Care Provider Unava ilable Encounter Details Date Type Department Care Team (Late st Contact Info) Description 09/21/2023 Lab Requisition [facility] - [facility] [address] [place] [address] Kristopher Perez, [facility] [address] [place] [phone] Encounter for other general examination Social History [...] Date/Time Associated Diagnosis Comments PAP TEST Today 09/19/2023 14:00 EDT Encounter for other general examination HPV DNA DETECTION WITH GENOTYPING, PCR Today 09/19/2023 14:00 EDT Encounter for other general examination documented in this encounter Results * (ABNORMAL) HUMAN PAPILLOMAVIRUS (HPV) DETECTION-HIGH RISK TYPES (09/19/2023 14:00 EDT) HPV other High Risk types, PCR Positive( A) Negative 09/26/2023 19:04 EDT [facility] Comment:E6 OR E7 mRNA from o ne or more types of HPV types 16,18,31,33,35,39,45,51,52,56,58,59,66, and 68 is detected by medical lab tech instructor mediated amplification. High and intermediate risk HPV types are associated with most squamous intraepithelial lesions and cervical cancers. Pap Test CERVIX UTERI STRUCTURE / Unknown 09/19/2023 14:00 EDT 09/26/2023 9:45 EDT Kristopher Harrisontate Dayanna JOSEPH MICROBIOLOGY - GENERAL OR DERABLES Final Result [facility] [address] [place] [id number] * PAP TEST (09/19/2023 14:00 EDT) Specimens A. Cervix and/or Endocervix , ThinPrep Imaging System with Manual Evaluation 09/26/2023 19:04 T [facility] Specimen Adequacy Satisfactory for Evaluation - transformation zone component present 09/26/2023 19:04 [facility] General Categorization Negative for intraepithelial lesion or malignancy 09/26/2023 19:04 [facility] Descriptive Diagnosis Shift in jackie present suggestive of bacterial vaginosis. 09/26/2023 19:04 [facility] Attestation . 09/26/2023 19:04 [facility] at 1904 Clinical History See below 09/26/19 24 19:04 [facility] HPV The result for the Human Papillomavirus (HPV) Detection-High Risk Types is Positive . E6 OR E7 mRNA from one or more types of HPV types 16,18,31,33,35,39 ,45,51,52,56,58,5 9,66, and 68 is detected by medical lab tech instructor mediated amplification. High and intermediate risk HPV types are associated with most squamous intraepithelial lesions and cervical cancers. Testing was performed on specimen [id number] and was resulted on 09/26/2023 1904 EDT by CHRISTINA, LAB INSTRUMENT RESULTS IN 09/26/2023 19:04 T [facility] Performing Lab [facility] 09/26/2023 19:04 EDT [facility] Scanned Images 09/26/2023 19:04 EDT [facility] Pap Test CERVIX UTERI STRUCTURE / Unknown 09/19/2023 14:00 EDT 09/21/2023 12:03 EDT us Kristopher Alan DNP PATHOLOGY ORDERABLES Michela lopez Result [facility] [address] [place] [address] documented in this encounter Visit Diagnoses Diagnosis Encounter for other general examination documented in this encounter Care Teams Dry Color Mixer Relationship Specialty Start Date End Date Unknown, Provider, PCP - General 05/16/17 documented as of this encounter
--- OUTSIDE RECORDS SUMMARY | 2024-07-09 13:38 | XMS_ITS | Encounter Summary ---
Author Organization [facility] Address [facility] [place] [address] Care Team Providers Care Orthopedic Radiologic Technologist Name Role Phone Timmy Dailey MD, Alec Primary Care Provider [phone] Encounter Details Date Type Department Care Team (Latest Contact Info) Description 03/30/2016 1:00 PM EDT - 03/30/2016 11:59 PM EDT Hospital [place] [address] Iona Ellison MD [facility] [address] OBSTETRICS [place] [address] Supervision of high risk in second trimester Discharge Disposition: Home Social History Tobacco Use [...] Refills Start Date End Date vitamin with [id number] ( VITAMIN) TabletIndications:Super vision of high risk [...] Diagnosis Comments US OB DETAILED MORPHOLOGY Routine 03/30/2016 2:07 PM EDT Supervision of high risk in second trimester documented in this encounter Results * US OB Detailed Morphology (03/30/2016 2:07 PM EDT) Anatomical Region Laterality Modality Pelvis, Abdomen Ultrasound 03/30/2016 1:16 PM EDT Impressions 03/30/2016 2:23 PM EDT 2nd Trimester - Screening Morphology - Summary Single intrauterine with a gestational age of 18w 2d based on clinical CHRISTIANO. Composite age based on the current ultrasound alone is 18w 4d. Current growth parameters are consistent with prior dating indicating normal growth. Amniotic fluid volume is subjectively appropriate for gest age. anatomic evaluation was performed and no structural abnormalities are noted. Limited visualization of spine and right foot. Straight umbilical cord; subchorionic collection on the anterior surface of the placenta. I ??viewed the images and agree with the above interpretation. ? Edvin Baldwin MD Electronically Signed Final Report ?? 03/30/2016 02:22 pm Narrative 03/30/2016 2:23 PM EDT OBSTETRICS REPORT ?(Signed Final 03/30/2016 02:22 pm) PATIENT INFO: ID #: ? [id number] ?: ??[birth year] (20 yrs) Name: ? HARLEY Saucedo YOUNG ? Visit Date: 03/30/2016 01:16 pm PERFORMED BY: Performed By: ? Rissa Gutierrez RDMS Attending: ?Denny WELLS, E ??Melissa Referred By: ?IONA ELLISON MD Location: ? [place] SERVICE(S) PROVIDED: ??[facility] - Detailed Morphology - Genetics - [id number] INDICATIONS: ??morph; E - Coordinates with gestational age ??or more than one week OB HISTORY: Height: ? 5'3 ?Weight: ?? 140 ?BMI: ??24.8 EVALUATION: Num Of Fetuses: ? 1 Heart ? 147 Rate(bpm): Cardiac Activity: ?? Observed, normal rhythm Presentation: ? Breech Placenta: ? Posterior P. Cord Insertion: ??Within Normal Limits Amniotic Fluid KARTIK FV: ?Subjectively appropriate for gest age Comment: ?Straight umbilical cord; subchorionic collection on the ? anterior surface of the placenta. --------- BIOMETRY: --------- BPD: ?41.2 ??mm ? G.Age: ?? 18w 3d OFD: ?52.8 ??mm HC: ?151.0 ??mm ? G.Age: ?? 18w 1d AC: ?141.0 ??mm ? G.Age: ?? 19w 4d FL: ? 26.0 ??mm ? G.Age: ?? 17w 6d HUM: ?27.5 ??mm ? G.Age: ?? 18w 6d CER: ?18.8 ??mm ? G.Age: ?? 18w 3d NFT: ? 3.8 ??mm NB: ? 5.17 ??mm LV: ?6.6 ??mm CM: ?3.7 ??mm CI: ?78.0 ??% ? 70 - 86 FL/HC: ? 17.2 ??% ? 15.8 - 18 HC/AC: ? 1.07 ?1.07 - 1.29 FL/BPD: ?63.1 ??% FL/AC: ? 18.4 ??% ? 20 - 24 Est. FW: ? 251 ?? gm ? 0 lb 9 oz GESTATIONAL AGE: Clinical CHRISTIANO: ??18w 2d ?CHRISTIANO: ?? 08/29/16 U/S Today: ? 18w 4d ?CHRISTIANO: ?? 08/27/16 Best: ?18w 2d ?? Det. By: ??Clinical CHRISTIANO ? CHRISTIANO: ?? 08/29/16 TARGETED ANATOMY: Central Nervous System Calvarium: ?Within Normal Limits Intracranial: ? Within Normal Limits Cavum: ?Visualized Lat. Ventricles: ?Within Normal Limits Cerebellum: ? Within Normal Limits Choroid Plexus: ? Visualized Cisterna Magna: ? Within Normal Limits Spine Cervical: ? Limited Views Thoracic: ? Limited Views Lumbar: ? Limited Views Sacral: ? Limited Views Head/Neck Face: ? Visualized Lips: ? Visualized Nuchal Fold: ?Within Normal Limits Eyes: ? Normal ??lens / orbits Profile: ?Visualized Thorax Four Chamber: ? Within Normal Limits Cardiac Motion: ? Normal Rhythm R Outflow Tract: ?Visualized L Outflow Tract: ?Visualized Aortic Arch: ?Visualized Cardiac [place]: ? Visualized 3 Vessel View: ?Visualized Diaphragm: ?Visualized Abdomen Stomach: ?Visualized Situs: ?Normal Lt Kidney: ?Visualized Rt Kidney: ?Visualized Bladder: ?Visualized Extremities Lt Humerus: ? Visualized Rt Humerus: ? Visualized Lt Forearm: ? Visualized Rt Forearm: ? Visualized Lt Hand: ?Visualized Rt Hand: ?Visualized Lt Femur: ? Visualized Rt Femur: ? Visualized Lt Lower Leg: ? Visualized Rt Lower Leg: ? Visualized Lt Foot: ?Visualized Rt Foot: ?Limited Views Other Umbilical Cord: ? 3 vessel cord Cord Insertion: ? Visualized Comment: ? Nasal Bone: Visualized CERVIX UTERUS ADNEXA: Left Ovary Not visualized Right Ovary Not visualized Procedure Note Edvin Baldwin MD - 03/30/2016 OBSTETRICS REPORT (Signed Final 03/30/2016 02:22 pm) PATIENT INFO: ID #: [id number] : [birth year] (20 yrs) Name: HARLEY FRIEDMAN Visit Date: 03/30/2016 01:16 pm PERFORMED BY: Performed By: Rissa Gutierrez RDMS Attending: Edvin Baldwin MD Referred By: IONA ELLISON MD Location: [place] SERVICE(S) PROVIDED: [facility] - Detailed Morphology - Genetics - [id number] INDICATIONS: morph; E - Coordinates with gestational age or more than one week OB HISTORY: Height: 5'3 Weight: 140 BMI: 24.8 EVALUATION: Num Of Fetuses: 1 Heart 147 Rate(bpm): Cardiac Activity: Observed, normal rhythm Presentation: Breech Placenta: Posterior P. Cord Insertion: Within Normal Limits Amniotic Fluid KARTIK FV: Subjectively appropriate for gest age Comment: Straight umbilical cord; subchorionic collection on the anterior surface of the placenta. --------- BIOMETRY: --------- BPD: 41.2 mm G.Age: 18w 3d OFD: 52.8 mm HC: 151.0 mm G.Age: 18w 1d AC: 141.0 mm G.Age: 19w 4d FL: 26.0 mm G.Age: 17w 6d HUM: 27.5 mm G.Age: 18w 6d CER: 18.8 mm G.Age: 18w 3d NFT: 3.8 mm NB: 5.17 mm LV: 6.6 mm CM: 3.7 mm CI: 78.0 % 70 - 86 FL/HC: 17.2 % 15.8 - 18 HC/AC: 1.07 1.07 - 1.29 FL/BPD: 63.1 % FL/AC: 18.4 % 20 - 24 Est. FW: 251 gm 0 lb 9 oz GESTATIONAL AGE: Clinical CHRISTIANO: 18w 2d CHRISTIANO: 08/29/16 U/S Today: 18w 4d CHRISTIANO: 08/27/16 Best: 18w 2d Det. By: Clinical CHRISTIANO CHRISTIANO: 08/29/16 TARGETED ANATOMY: Central Nervous System Calvarium: Within Normal Limits Intracranial: Within Normal Limits Cavum: Visualized Lat. Ventricles: Within Normal Limits Cerebellum: Within Normal Limits Choroid Plexus: Visualized Cisterna Magna: Within Normal Limits Spine Cervical: Limited Views Thoracic: Limited Views Lumbar: Limited Views Sacral: Limited Views Head/Neck Face: Visualized Lips: Visualized Nuchal Fold: Within Normal Limits Eyes: Normal lens / orbits Profile: Visualized Thorax Four Chamber: Within Normal Limits Cardiac Motion: Normal Rhythm R Outflow Tract: Visualized L Outflow Tract: Visualized Aortic Arch: Visualized Cardiac [place]: Visualized 3 Vessel View: Visualized Diaphragm: Visualized Abdomen Stomach: Visualized Situs: Normal Lt Kidney: Visualized Rt Kidney: Visualized Bladder: Visualized Extremities Lt Humerus: Visualized Rt Humerus: Visualized Lt Forearm: Visualized Rt Forearm: Visualized Lt Hand: Visualized Rt Hand: Visualized Lt Femur: Visualized Rt Femur: Visualized Lt Lower Leg: Visualized Rt Lower Leg: Visualized Lt Foot: Visualized Rt Foot: Limited Views Other Umbilical Cord: 3 vessel cord Cord Insertion: Visualized Comment: Nasal Bone: Visualized CERVIX UTERUS ADNEXA: Left Ovary Not visualized Right Ovary Not visualized IMPRESSION 2nd Trimester - Screening Morphology - Summary Single intrauterine with a gestational age of 18w 2d based on clinical CHRISTIANO. Composite age based on the current ultrasound alone is 18w 4d. Current growth parameters are consistent with prior dating indicating normal growth. Amniotic fluid volume is subjectively appropriate for gest age. anatomic evaluation was performed and no structural abnormalities are noted. Limited visualization of spine and right foot. Straight umbilical cord; subchorionic collection on the anterior surface of the placenta. I viewed the images and agree with the above interpretation. Edvin Baldwin MD Electronically Signed Final Report 03/30/2016 02:22 pm Iona Ellison MD IMG US OB ORDERABLES documented in this encounter Visit Diagnoses Diagnosis Supervision of high risk in second trimester Unspecified high-risk documented in this encounter Care Teams Orthopedic Radiologic Technologist Relationship Specialty Start Date End [place] [address] PCP - General 05/04/10 06/17/16 documented as of this encounter
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
--- OUTSIDE RECORDS SUMMARY | 2024-07-09 13:38 | XMS_ITS | Encounter Summary ---
Author Organization [facility] Address [facility] [place] [address] Care Team Providers Care X Ray Service Technician Name Role Phone Timmy Dailey MD, Alec Primary Care Provider [phone] Encounter Details Date Type Department Care Team (Late st Contact Info) Description 02/08/2016 Orders Only Obstetrics [place] [address] Iona Ellison MD [facility] [address] [place] [address] Supervision of high risk in second trimester Social History Tobacco Use Types Packs/Day Years [...] 02:22 pm) PATIENT INFO: ID #: ? [id number] ?: ??[birth year] (20 yrs) Name: ? HARLEY FRIEDMAN ? Visit Date: 03/30/2016 01:16 pm PERFORMED BY: Performed By: ? Rissa Gutierrez RDMS Attending: ?Denny WELLS, Edvin ??Melissa Referred By: ?IONA ELLISON MD Location: ? [place] SERVICE(S) PROVIDED: ??[facility] - Detailed Morphology - Genetics - [id number] INDICATIONS: ??morph; E - Coordinates with gestational [...] ?63.1 ??% FL/AC: ? 18.4 ??% ? Est. FW: ? 251 ?? gm ? [...] Outflow Tract: ?Visualized Aortic Arch: ?Visualized Cardiac [place]: ? Visualized 3 Vessel View: ?Visualized Diaphragm: [...] 03/30/2016 02:22 pm) PATIENT INFO: ID #: [id number] : [birth year] (20 yrs) Name: HARLEY FRIEDMAN Visit Date: 03/30/2016 01:16 pm PERFORMED BY: Performed By: Rissa Gutierrez RDMS Attending: Edvin Baldwin MD Referred By: IONA ELLISON MD Location: [place] SERVICE(S) PROVIDED: [facility] - Detailed Morphology - Genetics - [id number] INDICATIONS: morph; E - Coordinates with gestational [...] Outflow Tract: Visualized Aortic Arch: Visualized Cardiac [place]: Visualized 3 Vessel View: Visualized Diaphragm: Visualized [...] 03/30/2016 02:22 pm Iona Ellison MD IMG OB ORDERABLES documented in this encounter Visit Diagnoses Diagnosis Supervision of high risk in second trimester Unspecified high-risk Supervision of high risk in second trimester Unspecified high-risk documented in this encounter Care Teams X Ray Service Technician Relationship Specialty Start Date End Date Alec Warner MD [address] [place] [address] [place] [address] PCP - General 05/04/10 06/17/16 documented as of this encounter
--- OUTSIDE RECORDS SUMMARY | 2024-07-09 13:38 | XMS_ITS | Encounter Summary ---
Author Organization [facility] Address [address] [place] [address] Care Team Providers Care Financial Services Agent Name Role Phone Unknown, Provider Primary Care Provider Unava ilable Encounter Details Date Type Department Care Team (Late st Contact Info) Description 02/27/2023 Lab Requisition [facility] Pathology & Laboratory Medicine - [address] [address] Outr Resulting Lab, Provider Social History Tobacco [...] Comments CHLAMYDIA/N. GONORRHOEAE AMPLIFIED NUCLEIC ACID Routine 02/27/2023 10:50 EDT documented in this encounter Results * CHLAMYDIA/N. GONORRHOEAE AMPLIFIED RNA (02/27/2023 10:50 EDT) Neisseria gonorrhoeae Result Negative Negative 03/01/2023 15:48 EDT [facility] Chlamydia trachomatis Result Negative Negative 03/01/2023 15:48 EDT [facility] Swab VAGINAL STRUCTURE / Unknown 02/27/2023 10:50 EDT 02/27/2023 22:37 EDT us Provider Outr Resulting Lab MICROBIOLOGY - GENER AL ORDERABLES Final Result [facility] [address] [place] [address] documented in this encounter Visit Diagnoses Not on filedocumented in this encounter Care Teams Financial Services Agent Relationship Specialty Start Date End Date Unknown, Provider, PCP - General 05/16/17 documented as of this encounter
--- OUTSIDE RECORDS SUMMARY | 2024-07-09 13:38 | XMS_ITS | Encounter Summary ---
Author Organization [facility] Address [address] [place] [address] Care Team Providers Care Echometer Engineer Name Role Phone Unknown, Provider Primary Care Provider Unava ilable Encounter Details Date Type Department Care Team (Late st Contact Info) Description 12/02/2019 Lab Requisition [facility] Pathology & Laboratory Medicine - [address] [address] Outr Resulting Lab, Provider Social History Tobacco [...] Comments CHLAMYDIA/N. GONORRHOEAE AMPLIFIED NUCLEIC ACID Routine 12/02/2019 11:00 EDT documented in this encounter Results * CHLAMYDIA/N. GONORRHOEAE AMPLIFIED RNA (12/02/2019 11:00 EDT) Neisseria gonorrhoeae Result Negative Negative 12/04/2019 7:12 EDT [facility] Chlamydia trachomatis Result Negative Negative 12/04/2019 7:12 EDT [facility] Swab ENTIRE ENDOCERVIX / Unknown 12/02/2019 11:00 EDT 12/02/2019 21:17 EDT us Provider Outr Resulting Lab MICROBIOLOGY - GENER AL ORDERABLES Final Result [facility] [address] [place] [address] documented in this encounter Visit Diagnoses Not on filedocumented in this encounter Care Teams Echometer Engineer Relationship Specialty Start Date End Date Unknown, Provider, PCP - General 05/16/17 documented as of this encounter
--- NOTE | 2024-07-09 14:14 | DI.RAD_ITS ---
Exam(s) XR CHEST 2V PA LATERAL EXAM: XR CHEST 2V PA LATERAL CLINICAL HISTORY: Chest pain. TECHNIQUE: 2D digital imaging was performed. COMPARISON: CT ABD PELVIS WO CONTRAST from 04/24/2017 FINDINGS: 2 views: Heart size is normal. The mediastinum is not widened. The right lung is clear. there is platelike atelectasis or scarring in the superior lingular segment of the left lung. no confluent infiltrates. no pleural effusions. IMPRESSION: Platelike atelectasis or scarring in the superior lingular segment of the left lung. No other pulmon bonnie findings and there are no pleural effusions. DATA REPOSITORY: RADIATION DOSE DELIVERED:
--- NOTE | 2024-07-09 14:48 | ED.GENADUL_ITS ---
Discharge Plan Disposition Patient Disposition: Home Condition: Stable Discharge Details Clinical Impression: Chest pain Primary Care Provider: Kristopher Perez ED Provider: Katie Bradshaw Home Meds and New Rx's Prescriptions: Continued fluticasone propion-salmeterol [Advair HFA] 230-21 mcg/actuation HFA aerosol inhaler 2 puff inhalation BID Qty: 12 2RF sertraline 100 mg tablet 150 mg PO DAILY Qty: 135 4RF melatonin 3 mg capsule 3 mg PO DAILY PRN (Reason: sleep) Qty: 90 6RF ibuprofen 800 mg tablet 800 mg PO Q8H PRN (Reason: fever or pain) acetaminophen 325 MG tablet 650 mg PO Q4H PRN Qty: 60 loratadine [Allergy Relief (loratadine)] 10 mg tablet 10 mg PO DAILY Qty: 90 4RF albuterol sulfate 90 mcg/actuation HFA aerosol inhaler 2 inh inhalation Q4H PRN (Reason: shortness of breath or wheezing) Qty: 18 0RF Discharge Instructions Instructions: Troponin Test, Chest Pain, Adult ED Additional Instructions: No evidence of cardiac abnormality at this time chest x-ray within normal limits. Do a little bit of scarring in the left lower lobe. No evidence of cardiac injury at this time. Follow up with primary care provider in 3-5 days. Return to ED sooner if any worsening or concerns. Please discuss outpatient stress testing with your PCP. Please take Tylenol or Ibuprofen with food every 4-6 hours as needed for pain and swelling. Referrals: Kristopher Perez NP [Primary Care Provider] - 5 days Chandrika Kearney MD [ [facility] STAFF PHYSICIAN] - Return if symptoms worsen HPI General Mode of arrival: ambulatory . Date/Time Provider Initiated Documentation: 07/09/24 12:43 . Limitations to Documentation: no limitations . Information obtained by: patient, RN notes reviewed and old records reviewed . HPI Narrative: 29-year-old female presents to the ER chief complaint of chest pain on and off for the last 2 days. She is 7. 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 She reports it is occurring more frequency. She reports that she was just recently sick with a URI. Does have a history of migraines and gestational diabetes. She did have a patent ductus arteriosus closure as an . Chest x-ray was performed here in the ER which was within normal limits, troponin less than 4 which is negative. EKG noted sinus rhythm with possible left atrial enlargement. Sent here from urgent care. Related Data Home Medications ?Medication ?Instructions ?Recorded ?Confirmed acetaminophen 325 mg tablet 650 mg PO Q4H PRN #60 tab-caps 01/27/16 07/09/24 melatonin 3 mg capsule 3 mg PO DAILY PRN sleep #90 caps 11/07/19 07/09/24 loratadine 10 mg tablet (Allergy 10 mg PO DAILY #90 tabs 08/11/21 07/09/24 Relief (loratadine)) ibuprofen 800 mg tablet 800 mg PO Q8H PRN fever or pain 12/27/21 07/09/24 albuterol sulfate 90 mcg/actuation 2 inh inhalation Q4H PRN shortness 01/20/23 07/09/24 aerosol inhaler of breath or wheezing #18 grams fluticasone propionate 230 2 puff inhalation BID #12 grams 08/15/23 07/09/24 mcg-salmeterol 21 mcg/actuation HFA inhaler (Advair HFA) sertraline 100 mg tablet 150 mg (1.5 x 100 mg) PO DAILY 08/15/23 07/09/24 #135 tabs Previous Rx's ?Medication ?Instructions ?Recorded melatonin 3 mg capsule 3 mg PO DAILY PRN sleep #90 caps 11/07/19 loratadine 10 mg tablet (Allergy 10 mg PO DAILY #90 tabs 08/11/21 Relief (loratadine)) albuterol sulfate 90 mcg/actuation 2 inh inhalation Q4H PRN shortness 01/20/23 aerosol inhaler of breath or wheezing #18 grams fluticasone propionate 230 2 puff inhalation BID #12 grams 08/15/23 mcg-salmeterol 21 mcg/actuation HFA inhaler (Advair HFA) sertraline 100 mg tablet 150 mg (1.5 x 100 mg) PO DAILY 08/15/23 #135 tabs Allergies Allergy/AdvReac Type Severity Reaction Status Date / Time No Known Allergies Allergy Verified 07/09/24 12:56 General Stated Complaint: Chest Pain DAVID: 3 Review of Systems All systems reviewed & are unremarkable except as noted in HPI and below Cardiovascular Cardiovascular: Reports chest pain, Denies diaphoresis, Denies syncope, Denies rapid heart rate and Denies leg edema Respiratory Respiratory: Reports cough Neurologic Neurologic: Denies syncope Exam Narrative Exam Narrative: Constitutional: Alert and oriented x3. Appears stated age. Obese body habitus. Head: Normocephalic, no trauma. Eyes: Pupils PERRL, Red reflex noted, EOM's intact. Eyelids symmetrical without lesions, discharge, or swelling. ENT: Bilateral TM's WNL, External ear normal to inspection, no mastoid TTP, swelling, or erythema, Nasal turbinates WNL, no nasal discharge. Normal dentition, Posterior pharynx WNL, no exudate. Chest: RRR, Normal S1, S2, distal pulses intact. Resp: Lungs clear to auscultation bilaterally, no wheezes, rales, or rhonchi. Abdomen: Soft, non-distended, Normoactive bowel sounds all 4 quads. Musculoskeletal: Normal gait, Moves all 4 extremities without difficulty. Skin: No suspicious rashes or lesions. Capillary refill less than 2 sec. Neurologic: Cranial nerves II-XII intact. Alert and oriented x 3. Motor: No deficits noted. Sensory: Intact bilaterally all 4 extremities. Hematologic/Lymphatic: No ecchymosis, no lymphadenopathy. Course Vital Signs Vital signs: Vital Signs Temperature 36.9 C 07/09/24 12:49 Pulse 88 07/09/24 12:49 Respiratory Rate 20 07/09/24 12:49 Blood Pressure 125/88 07/09/24 12:49 Pulse Oximetry 97 07/09/24 12:49 Temperature 36.9 C 07/09/24 12:49 Temperature Source Oral 07/09/24 12:49 Pulse 88 07/09/24 12:49 Respiratory Rate 20 07/09/24 13:04 Respiratory Effort Normal 07/09/24 13:04 Respiratory Depth Normal 07/09/24 13:04 Respiratory Pattern Normal 07/09/24 13:04 Blood Pressure 125/88 07/09/24 12:49 Blood Pressure Position Sitting 07/09/24 12:49 Pulse Oximetry 97 07/09/24 12:49 Oxygen Delivery Method Room Air 07/09/24 12:49 Oxygen Flow Rate 0 07/09/24 12:49 Pain Level 0 07/09/24 13:04 Lab/Test Results Lab/Test Results: POC- Test(urine) Negative Medical Decision Making 29-year-old female presents to the ER chief complaint of chest pain on and off for the last 2 days. She is 7. 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 She reports it is occurring more frequency. She reports that she was just recently sick with a URI. Does have a history of migraines and gestational diabetes. She did have a patent ductus arteriosus closure as an infant. Chest x-ray was performed here in the ER which was within normal limits, troponin less than 4 which is negative. EKG noted sinus rhythm with possible left atrial enlargement. Sent here from urgent care. EKG shows sinus rhythm, chest x-ray within normal limits troponin less than 4. Patient to be discharged home with follow-up with PCP for discussion of outpatient stress test if needed. This text was generated using Kinetic Socialation system, please disregard any oddities of phrase or misspellings. Medical Records Medical records reviewed: Yes I reviewed the patient's medical records. Imaging Data Radiologic Study: Imaging: X-Ray Radiologist's impression: EXAM: XR CHEST 2V PA LATERAL CLINICAL HISTORY: Chest pain. TECHNIQUE: 2D digital imaging was performed. COMPARISON: CT ABD PELVIS WO CONTRAST from 04/24/2017 FINDINGS: 2 views: Heart size is normal. The mediastinum is not widened. The right lung is clear. there is platelike atelectasis or scarring in the superior lingular segment of the left lung. no confluent infiltrates. no pleural effusions. IMPRESSION: Platelike atelectasis or scarring in the superior lingular segment of the left lung. No other pulmonary findings and there are no pleural effusions. 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 Umbilical abnormality (Acute 06/29/16) Insomnia (Acute 07/25/17) Increased BMI (body mass index) (Chronic 08/24/17) Depressive disorder (Chronic 06/21/13) Psychiatric consult 02/23 Chronic midline low back pain without sciatica (Chronic 08/24/17) Attention deficit hyperactivity disorder (Chronic 10/31/12) Medical History examination following vaginal delivery (normal spontaneous vaginal delivery) History of delivery, currently Gestational diabetes Maternal varicella, non-immune Elevated BP without diagnosis of hypertension Discomfort of right ear Hx of migraines Surgical History Tonsillectomy and adenoidectomy 2003 Patent Ductus Arteriosus closure Family History Father Diabetes Maternal Grandfather , age 41 Brain cancer Mother Depression Brother , born at 5 months No problems noted. Daughter No problems noted. Paternal Grandfather No problems noted. Maternal Grandmother , age 74 Diabetes Heart disease Cervix cancer Stroke Brain cancer Lymph node cancer Paternal Grandmother No problems noted. Social History Smoking/Tobacco Use Status: Current-Occasional Tobacco Type: cigarettes Tobacco: How many years used: 9 Quit status: has quit before Second Hand Exposure: Yes Smoking risk assessment performed?: Yes Alcohol Intake: current Alcohol Intake frequency: holidays/special occasions only Counseling provided: provider counseling Details: Occasional binge drinking - counselled Drug use: Occasionally Substance use type: marijuana Adopted: No Household members: family and other Details: lives with mother. Has supervised visitation with her son. No contact daugh Housing: apartment Number of Children: 2 Do you need help understanding health information?: Never current occupation: Disabled. Pets and animals: Yes Pets and animals: dog(s) Sexually active: Yes Do you think of yourself as: straight/heterosexual Current gender identity: female What is your relationship status?: never How often do you talk on the phone with friends or family?: never How often do you get together with friends or relatives?: once per week How often do you attend uatsdin or christianity services?: 1-3 times per year Do you belong to any clubs or organized social groups?: no Panel score (0-1 are the most socially isolated patients): 0 Duration: < 15 minutes/day Frequency: 1-2 times per week Evangelina/Moravian: No preference Seatbelt use: sometimes Helmet use: No Drive intox or ride w/intox package car driver: No Do you feel safe at home: Yes Do you feel safe in your relationship?: Yes History History 3 Para 2 Hx # Term Pregnancies 0 Multiple births 0 Hx # Pregnancies 3 Ectopic pregnancies 0 AB induced 0 Hx Number of Living Children 2 AB spontaneous 0 Past Pregnancies Del. Date GA/Weeks # Preg Succ Route Wgt Sex Labor Lgth [facility]est[facility] 34 vaginal 2494.758 g Female [facility] 05/06/18 34 No vaginal 2148.894 g Male [facility] 07/06/21 38 No vaginal 2806.603 g Female [facility] Delivery Date: 07/20/16 Last Updated by: Tiff Nicolas PPROM, IOL with Pitocin, pt does not have custody. Delivery Date: 05/06/18 Last Updated by: So Miller M.D. Does not have custody.
[2024-07-09 14:56] LABS: Troponin I < 4 ng/L (<or=51)
[2024-07-09 15:49] VITALS: BP 139/91; PULSE 89; RESP 19; O2SAT 96
== END 2024-07-09 15:46 | disposition home or self-care (01) ==
PROVIDERS: Emergency Provider Registered Nurse Emergency; PCP Nurse Practitioner Family
DX: R07.9 Chest pain, unspecified (principal); F17.210 Nicotine dependence, cigarettes, uncomplicated; Z95.2 Presence of prosthetic heart valve
CPT/HCPCS: 81025; 93005; 99285; 71046; 84484; 93010; 99284

== ENCOUNTER 2024-07-17 17:14 | Emergency (ER) | payer MEDICAID, SELFPAY ==
[2024-07-17 17:18] VITALS: BP 132/68; PULSE 110; RESP 16; TEMP 36.4; O2SAT 100
--- OUTSIDE RECORDS SUMMARY | 2024-07-17 17:38 | XMS_ITS | Clinical Summary ---
Author Organization [facility] Address [facility] [place] [address] Care Team Providers Care Commissioned Security Officer Name Role Phone Unknown Primary Care Provider Unavailabl e Allergies No known active allergies Medications Medication Sig Dispensed Refills Start Date End Date Status vitamin with vktraxce-Sq-Aqgz-F A ( VITAMIN) TabletIndications: Supervision of high [...] capacity to make decision: Yes Care Teams Commissioned Security Officer Relationship Specialty Start Date End Date Unknown None PCP - General 03/05/22
--- OUTSIDE RECORDS SUMMARY | 2024-07-17 17:38 | XMS_ITS | Encounter Summary ---
Author Organization [facility] Address [facility] [place] [address] Care Team Providers Care Transition Assistant Name Role Phone Unknown Primary Care Provider Unavailabl e Reason for Visit * Auth/Cert Specialty Diagnoses / Procedures Referred By Des leblanc Referred To Contact Diagnoses premature rupture of membranes (PPROM) with unknown onset of labor 33 AND 5 WKS PROM Procedures EMERGENCY Referral ID Status Reason Start Date Expiration Date Visits Re quested Visits Authorized [id number] 1 1 Encounter Details Date Type Department Care Team (Latest Contact Info) Description 07/18/2016 11:22 PM EST - 07/22/2016 1:10 PM [facility] [place] [id number] Latisha Rodriguez MD [facility] [place] [address] premature rupture of membranes (PPROM) with unknown [...] Aruna Friedman Patient Age: 21 y.o. Language: Gambian Race: White Ethnicity: Not nor Admit date: 07/18/2016 Discharge date and time: 07/22/2016 Attending Physician: Latisha Rodriguez MD Discharge Physician: Iona Ellison MD Referring Hospital: Referring Provider: Maryjane Bah CNM ?? Follow-up [...] to localize IUD. Inpatient Provider Contact Information: [facility] WOODWORK SALVAGE INSPECTOR Department, Discharge Diagnoses (Hospital Problems) and Secondary [...] gestation by first trimester ultrasound [facility] after she noticed leaking today after intercourse [...] for the patient's : Elder, Baby Girl [[id number]] INFORMATION Baby Xu Friedman 07/20/2016 6:47 AM by Vaginal, Spontaneous Delivery Sex: female Gestational Age: 34w2d [place] Measurements: Weight: 5 lb 8.2 oz (2500 [...] VITAMIN Tab Daily Generic drug: vitamin with ldihcxjm-Sq-Doel-FA Refills: 0 STOPPED Medications ondansetron 8 mg [...] Scheduling Instructions: Comments: Aruna Friedman 1995 [address] [facility] [address] [facility] [address] (home) [employer] Central intake- #[phone] fax [phone] [place] Office- [phone] RX: Hospital Grade Electric Breast Pump- Lactina [...] breast pump Size requested: Vendor Name/Contact information: [employer] Discharge References/Attachments None documented in this encounter [...] this in detail. Call your doctor or neurosurgery spine physician for: ??? Fever more than 100.5 ??? [...] prior to you follow up appointment. Your [facility] Provider can be reached during office hours at ??? Midwives ??? Obstetricians ??? [facility] Follow-up Clinic ??? AFTER OFFICE HOURS for the research test engine evaluator or neurosurgery spine physician correction warden Provider electronic signature confirms that discharge instructions were reviewed with the patient. A copy was printed and given to the patient. documented in this encounter Medications at Time of Discharge Medication Sig Dispensed Refills Start Date End Date vitamin with yrintbza-Yr-Ujls-FA ( VITAMIN) TabletIndications:Sup ervision of high risk [...] for the patient's : Young, Baby Girl [[id number]] Delivery Date and Time:07/20/2016 6:47 AM Delivery Type: Vaginal, Spontaneous Delivery ID: Aruna Friedman is a 21 y.o. who is PPD#2 from at 34w2d admitted with PPROM. Subjective: Aruna is doing well this morning. No complaints and no pain. Her vaginal bleeding is program project manager. Breast pumping for in ICN. Received postplacental [...] Cool MD 07/22/2016 Associated attestation - Antonio Bajwa MD - 07/23/2016 9:25 AM EST I saw the patient, discussed her care with the Ob team on morning rounds, and agree with the assessment and plan as documented. Antonio Bajwa MD 07/23/2016 9:24 AM * Olga Acevedo - 07/21/2016 6:22 AM EST Vaginal Delivery Note Information for the patient's : Young, Baby Girl [[id number]] Delivery Date and Time:07/20/2016 6:47 AM Delivery Type: Vaginal, Spontaneous Delivery ID: Aruna Friedman is a 21 y.o. who is PPD#1 from [facility] at 34w2d admitted with PPROM. [...] Physician: Latisha Rodriguez MD Aruna Friedman [address] [place] [address] [address] [facility] [address] (home) [employer] Central intake- #[phone] fax [phone] [place] Office- [phone] RX: Hospital Grade Electric Breast Pump- Lactina Breast Pump Length of Need: 3 Months Purpose of Appliance: To Initiate and Maintain Medical Necessity: /Lactating Mother- Z39.1 Breast Engorgement relative to infant born at 34 2/7 gestation - P92.9 Feeding problem of , unspecified Premature Infant in ICN from mother- P07.30 Prematurity Map and directions provided to mom. Ehsan Eastman RN Intensive Care Nursery Hogshead Head MatcherBologna Maker of Care Management Phone:# [phone] Beeper: #[id number] Fax: # [phone] * Latisha Rodriguez MD - 07/20/2016 6:10 AM EST Multidisciplinary Second Stage Labor Progress Note Patient ID: Aruna Friedman is a 21 y.o. at 34w2d gestation. A multidisciplinary meeting was held to discuss discuss maternal/ status. This included the charge nurse (Iona Diaz), Labor nurse (Chandrika), Attending Funds Transfer Clerk (Dr Rodriguez) and Radhames OB resident (Dr. [...] 130, mod emmanuel, accels present, no decels. Wamic: ctx q2 min. GBS Unknown, culture collected [...] 125, mod emmanuel, accels present, no decels. Wamic: ctx q2-4 min. GBS Unknown, culture collected [...] 125, mod emmanuel, accels present, no decels. Wamic: ctx q2-4 min. GBS Unknown, culture collected [...] 125, mod emmanuel, accels present, no decels. Wamic: ctx q2-4 min. GBS Unknown, culture collected [...] 130, mod emmanuel, accels present, no decels. Wamic: ctx q3-4 min. Imp: Cat I. GBS [...] 130, mod emmanuel, accels present, no decels. Wamic: ctx q3-4 min. Imp: Cat I. GBS [...] PM EST Obstetrical Admission Note Referring Hospital: Referring Provider: Maryjane Bah CNM Initial Care Provider (if early referral or co-managed by M): n/a Chief Complaint: Aruna Friedman was admitted today secondary to premature rupture of membranes. Aruna Friedman is a 21 y.o. at 34w1d gestation by first trimester ultrasound [facility] after she noticed leaking today after intercourse [...] Dispense Refill Last Dose ??? vitamin with xprpoejo-Rs-Hggh-FA ( VITAMIN) Tablet Daily Taking at Unknown [...] 130bpm, Variability: moderate, Accels: yes, Decels: none, Wamic: q4-6min Category: I Record Review Labs Lab Results Component Value Date HCT 40.6 02/13/2014 HGB 13.3 02/13/2014 MCV 89.8 02/13/2014 syphilis, Hep B, HIV Negative Hgb 12.0/Plt 252 Most Recent Ultrasound From [facility] Date: 07/15/16 GA at US: 33w2d EFW: [...] -Tocolysis: none -GBS status: unknown, pending at [facility] - status: NSTonce daily -Steroid status: beta #1 at 2030 on 07/18 -Magnesium for neuro protection: n/a -Consultations: neonatology and anesthesiology -Consents obtained: section, Heather 2. contraception plan: Nexplanon 3. Status ?? Last Growth US: 07/15/16 at [facility] ?? Presentation: vtx ?? Straight umbilical cord [...] achieved Date Met: 07/22/16 07/22/16 0751 07/22/16 8518 Plan of Care Review Progress -- progress toward functional goals as expected Coping/Psychosocial Plan Of Care Reviewed With patient;mother -- OUTCOME EVALUATION NOTE: OUTCOME SUMMARY: Pt tolerating diet. Ambulating and voiding without difficulty. Denies need for pain medication. Pumping independently. Denies nipple/breast tenderness. Visiting in ICN. Discharge instructions reviewed with pt and pt's mother. Questions answered. PLAN MOVING FORWARD: Discharge home. Information about [employer] provided. INDIVIDUALIZED FALL PREVENTION INTERVENTIONS: Patient-specific fall [...] Met: 07/22/16 07/21/16340 Interdisciplinary Rounds/Family Conf Participants medical case manager;family;nursing;patient;physician;social work/services Problem: (Vaginal Delivery) (Adult) Goal: Signs [...] 07/21/2016 3:22 PM EST I called a neurosurgery spine physician at [facility] with the delivery information. Iona Ellison MD [...] as Appropriate) 07/21/16340 Interdisciplinary Rounds/Family Conf Participants medical case manager;family;nursing;patient;physician;social work/services Problem: (Vaginal Delivery) (Adult) Goal: Signs [...] concerns about going home with a . nurse coordinator already involved, Cassia Xie. PLAN MOVING [...] of Care Management Initial Assessment [facility] reviewed record and discussed patient with [...] live together in their own place in [place], [place] and Diana istheir first child together. Simeon has two older children ages 11 and 7 which he has contact with butare not living with him. He alluded to child protection involvement based on his ex girlfriend but did not elaborate. Jerilyn is not working and Simeon is a banquet prep cook. Social & Family Supports/Community Resources: Jerilyn has good support from her side of the family and they are aware of the services offered through the [facility] ([facility]). She has a nursing service administrator named Cassia Xie. Behavioral Health History: Jerilyn [...] needs a breast pump; will need to pick up operator at [facility]. Family would like to know if they can pick it up [facility]. Dialysis: N/A Community Resources: [facility] Transportation: Pt has transportation Other: N/A Anticipated Barriers to Discharge/Special Considerations: None at this time. Plan: Provide support as needed through discharge. A member of the Care Management team will continue to monitor progress, follow for continuity of care and assist with transition of care planning. [facility] Pager: [phone] * L&D Delivery Note - Latisha Rodriguez [...] for the patient's : Elder, Baby Girl [[id number]] DELIVERY SUMMARY FOR Baby Girl Elder (please [...] Role CHANDRIKA JACOB Delivery Nurse LATISHA RODRIGUEZ Funds Transfer Clerk IONA DIAZ Delivery Assist Anesthesia Method: Epidural [...] was referred as a maternal- transfer from [facility]. I met with Aruna and her boyfriend, [...] unemployed. Her boyfriend works as a prep banquet chef. He has two older children from a [...] Fellow Department of - Medicine Pager # [phone] 07/19/2016 4:53 PM documented in this encounter [...] Report (07/20/2016 7:48 AM EST) Final Diagnosis [id number] ?Location: ; 09; B The signing pathologist [...] parenchyma. (R5) ??jwb 07/22/2016 12:11 PM EST [facility] TISSUE SPECIMEN FROM [facility] / Unknown 07/20/2016 7:48 AM EST 07/20/2016 7:48 AM EST Ester Cool MD PATHOLOGY/CYTOLOGY O NELSON Performing Organization Address [facility] Co de Phone Number [facility] [place] [address] * Specimen to Pathology (NON-OR) (07/20/2016 7:48 AM EST) AP Specimen 07/20/2016 7:48 AM EST 07/20/2016 7:48 AM EST Narrative [facility] - 07/20/2016 7:48 AM EST Specimen requisition ordered. ??Separate Pathology report to follow Latisha Rodriguez MD PATHOLOGY/CYTOLOGY O NELSON Performing Organization Address [facility] Co de Phone Number [facility] [place] [address] * POCT Glucose (07/19/2016 7:33 AM EST) Glucose, POC 94 65 - 199 mg/dL [facility] Comment: Supplemental ranges: <140 mg/dL before meals <180 mg/dL all other times of the day Blood specimen (specimen) 07/19/2016 7:33 AM EST 07/19/2016 7:33 AM EST Latisha Rodriguez MD POINT OF CARE TEST O NELSON Performing Organization Address [facility] Co de Phone Number [facility] [place] [address] * GC/Chlam (07/19/2016 5:30 AM EST) GC Gene Amp Negative Negative [facility] Comment: The only FDA approved specimen types for this assay are cervix, vagina, urethra and urine. GC Source Urine [facility] Chlamydia Gene Amp Negative Negative [facility] Comment: The only FDA approved specimen types for this assay are cervix, vagina, urethra and urine. Chlm Source Urine [facility] Urine specimen (specimen) 07/19/2016 5:30 AM EST 07/19/2016 7:25 AM EST Narrative Resulting Agency Comment Spec In Lab Latisha Rodriguez MD MICROBIOLOGY - GENER AL ORDERABLES [facility] [place] [address] * (ABNORMAL) Urinalysis with reflex Culture (07/19/2016 3:00 AM EST) Pathologist [facility] Glucose, Urine Dipstick Negative Negative mg/dL [facility] Protein, Urine Dipstick 30(A) Negative mg/dL [facility] Bilirubin, Urine Dipstick Negative Negative mg/dL [facility] Comment: Clinical correlation required for positive Urine Bilirubin results as false positive may occur with some drugs and drug related products. If a false positive is suspected a serum total bilirubin should be considered if clinically indicated. Urobilinogen, Urine Dipstick 2.0(A) Normal mg/dL [facility] pH, Urn (dipstick) 6.0 5.0 - 8.0 [facility] Blood, Urine Dipstick Negative Negative mg/dL [facility] Ketone, Urine Dipstick Negative Negative mg/dL [facility] Nitrite, Urine Dipstick Negative Negative [facility] Leukocytes, Urine Dipstick Negative Negative [facility] Appearance, Urine Dipstick Clear Clear [facility] Specific [place] Urine Automated 1.030 1.002 - 1.030 [facility] Color, Urine Dipstick Karissa Yellow [facility] RBC, Urine 3 0 - 4 /HPF [facility] WBC, Urine 3 0 - 5 /HPF [facility] Bacteria, Urine Rare(A) None /HPF [facility] Squamous Epithelial Cells, Urine 2 <=4 /HPF [facility] Amorphous Crystals, Urine Rare(A) None /HPF [facility] Reflex to Culture No [facility] Urine specimen obtained by clean catch procedure (specimen) 07/19/2016 3:00 AM EST 07/19/2016 4:16 AM EST Narrative Resulting Agency Comment Spec In Lab Latisha Rodriguez MD URINE ORDERABLES Performing Organization Address [facility] Co de Phone Number [facility] [place] [address] * ABORH Recheck Status (07/19/2016 1:40 AM EST) ABORH Type Recheck Completed [facility] Blood specimen (specimen) 07/19/2016 1:40 AM EST 07/19/2016 1:54 AM EST Narrative Resulting Agency Comment Spec In Lab Latisha Rodriguez MD BLOOD BANK LAB ORDER NINI Performing Organization Address [facility] Co de Phone Number [facility] [place] [address] * (ABNORMAL) Differential, Automated (07/19/2016 1:40 AM EST) Neutrophil % 85.0 % [facility] Neutrophil Absolute 10.81(H) 1.70 - 6.10 x10(3)/mc L [facility] Lymph % 11.7 % [facility] Lymphocytes Abs 1.5 0.9 - 3.2 x10(3)/mc L [facility] Monocyte % 1.3 % [facility] Monocyte Abs 0.2(L) 0.3 - 0.9 x10(3)/ L [facility] Eos % 0.0 % [facility] Eosinophils Abs 0.0 0.0 - 0.4 x10(3)/[facility] Basophil % 0.2 % [facility] Baso Absolute 0.0 0.0 - 0.1 x10(3)/[facility] Immature Gran % 1.80 % [facility] Comment: Immature granulocytes(IG's)percentage and absolute count will include metamyelocytes, myelocytes, and promyelocytes. Blood smears from CBCs yielding IG's will be scanned manually for concordance. If this scan disagrees with the automated IG or if promyelocytes are noted, a manual differential will be performed. Immature Gran Absolute 0.23(H) 0.00 - 0.04 x10(3)/[facility] Blood specimen (specimen) 07/19/2016 1:40 AM EST 07/19/2016 1:48 AM EST Narrative Resulting Agency Comment Spec In Lab Latisha Rodriguez MD HEMATOLOGY ORDERABLE S [facility] [place] [address] * (ABNORMAL) Hemogram (07/19/2016 1:40 AM EST) White Blood Cell 12.7(H) 4.0 - 9.5 x10(3)/[facility] Red Blood Cell 3.82(L) 4.00 - 5.21 x10(6)/[facility] Hemoglobin 11.6(L) 11.7 - 15.5 gm/dL [facility] Hematocrit 34.3(L) 35.7 - 45.8 % [facility] Mean Cell Volume 89.8 82.6 - 94.4 fL [facility] Mean Cell Hemoglobin 30.4 27.1 - 32.0 pg [facility] Mean Cell Hemoglobin Concentration 33.8 31.7 - 35.0 gm/dL [facility] Platelet 213 145 - 357 x10(3)/mc L [facility] RDW Standard Deviation 40.0 37.0 - 46.0 [facility] RDW coefficient of variation 12.2 11.5 - 14.1 % [facility] Mean Platelet Volume 11.9 7.6 - 12.9 [facility] NRBC% auto 0.0 % [facility] NRBC Absolute 0.000 0.000 - 0.000 x10(3)/mc L [facility] Blood specimen (specimen) 07/19/2016 1:40 AM EST 07/19/2016 1:48 AM EST Narrative Resulting Agency Comment Spec In Lab Latisha Rodriguez MD HEMATOLOGY ORDERABLE S [facility] [place] [address] * Antibody screen (07/19/2016 1:40 AM EST) Ab Screen Interp Negative [facility] Expires at [id number] on: 07/22/2016 [facility] Blood specimen (specimen) 07/19/2016 1:40 AM EST 07/19/2016 1:54 AM EST Narrative Resulting Agency Comment Spec In Lab Latisha Rodriguez MD BLOOD BANK LAB ORDER NINI [facility] [place] [address] * ABO/Rh Typing (07/19/2016 1:40 AM EST) ABORH Type O Pos [facility] Blood specimen (specimen) 07/19/2016 1:40 AM EST 07/19/2016 1:54 AM EST Narrative Resulting Agency Comment Spec In Lab Latisha Rodriguez MD BLOOD BANK LAB ORDER NINI Performing Organization Address [facility] de Phone Number [facility] [place] [address] * Rubella Antibody, IgG (07/19/2016 1:40 AM EST) Rubella Antibody IgG Positive Positive [facility] Comment: Please note: ??A positive result for this assay indicates that antibody levels are >or= 10.0 IU/mL and is considered to be an indicator of positive immune status. Blood specimen (specimen) 07/19/2016 1:40 AM EST 07/19/2016 1:48 AM EST Narrative Resulting Agency Comment Spec In Lab Latisha Rodriguez MD CHEMISTRY ORDERABLES Performing Organization Address [facility] de Phone Number [facility] [place] [address] * Varicella zoster Antibody, IgG (07/19/2016 1:40 AM EST) Varicella Zoster Antibody IgG Pos [facility] Blood specimen (specimen) 07/19/2016 1:40 AM EST 07/19/2016 7:09 AM EST Narrative Resulting Agency Comment Spec In Lab Latisha Rodriguez MD IMMUNOLOGY ORDERABLE S Performing Organization Address [facility] de Phone Number [facility] [place] [address] * Group B Streptococcus Screen (07/19/2016 12:03 AM EST) GBS Screen Pos [facility] Pooled specimen from vaginal introitus and rectal swab (specimen) 07/19/2016 12:03 AM EST 07/19/2016 7:26 AM EST Comment:Already received 1 d ose of penicillin at [facility] Narrative Resulting Agency Comment Spec In Lab Latisha Rodriguez MD MICROBIOLOGY - GENER AL ORDERABLES Performing Organization Address City/[facility]/ZIP Co de Phone Number [facility] [place] [address] * (ABNORMAL) Group B Strep Culture Screen (07/19/2016 12:03 AM EST) Group B Streptococcus Culture Beta Hemolytic Streptococci, Group B isolated(A) [facility] Organism Beta Hemolytic Streptococci, Group B(A) [facility] Pooled specimen from vaginal introitus and rectal swab (specimen) 07/19/2016 12:03 AM EST 07/19/2016 7:26 AM EST Comment:ALREADY RECEIVED 1 D OSE OF PENICILLIN AT [facility] Narrative Resulting Agency Comment Spec In Lab Latisha Rodriguez MD MICROBIOLOGY - GENER AL ORDERABLES Performing Organization Address [facility] Co de Phone Number [facility] [place] [address] documented in this encounter Visit Diagnoses Diagnosis [...] Unit) documented in this encounter Care Teams Transition Assistant Relationship Specialty Start Date End Date Unknown None PCP - General 06/18/16 11/19/17 documented as of this encounter
--- OUTSIDE RECORDS SUMMARY | 2024-07-17 17:38 | XMS_ITS | Encounter Summary ---
Author Organization [facility] Address [facility] [place] [address] Care Team Providers Care Ivf Embryologist Name Role Phone Tania Leos APRN Primary Care Provider Reason for Visit * Reason Comments Establish Care * Consultation (Routine) - Closed Specialty Diagnoses / Procedures Referred By Des leblanc Referred To Contact Obstetrics and Gynecology Diagnoses Supervision of other high risk pregnancies, first trimester HX DELIVERY X2, DEPRESSION, HX OF SURGICAL REPAIR OF PATENT DUCTUS Mari Borrero, [facility] [address] [place] [address] [place] [address] [facility] Psych Specialist [address] [place] [address] Referral ID Status Reason Start Date Expiration Date V isits Requested Visits Authorized [id number] Closed Consult, Test & Treat Connection Center PCP Updated and/or Approved 12/23/2020 12/23/2021 1 1 Encounter Details Date Type Department Care Team (Late st Contact Info) Description 01/12/2021 11:00 AM EDT Office Visit Obstetrics [place] [address] Johan Zapata MD [facility] OBSTETRICS [place] [address] History of delivery, currently (Primary [...] Past OB: - 05/06/2018: at 34w4d ([place] [facility] Transferred from [facility] after found to be [...] have questions, please contact the health rn homecare that requested your imaging first. ?Thu Vigil, Staff Physician Electronically Signed Final Report ?? 02/19/2021 11:46 am Narrative 02/19/2021 11:47 AM EDT OBSTETRICS REPORT ?(Signed Final 02/19/2021 11:46 am) PATIENT INFO: ID #: ? [id number] ?: ??[birth year] (25 yrs)(F) Name: ? HARLEY Jeff T YOUNG ? Visit Date: 02/19/2021 11:07 am PERFORMED BY: Performed By: ? Bianca Steiner RDMS Attending: ?Musa WELLS, Thu Abdi Referred By: ?JOHAN ZAPATA Location: ? [place] SERVICE(S) PROVIDED: [facility] - Detailed Morphology - [id number] ? 69122 UOBTVCER - Transvaginal ??2nd Trimester - ?90859 Cervical Length - [id number] INDICATIONS: 19 weeks gestation of ?Z3A.19 Prior [...] Arch: ? Visualized SVC: ? Visualized Cardiac [place]: ?Visualized Diaphragm: ? Visualized 3 Vessel View: [...] 02/19/2021 11:46 am) PATIENT INFO: ID #: [id number] : [birth year] (25 yrs)(F) Name: HARLEY FRIEDMAN Visit Date: 02/19/2021 11:07 am PERFORMED BY: Performed By: Bianca Steiner RDMS Attending: Thu Vigil MD Referred By: JOHAN ZAPATA Location: [place] SERVICE(S) PROVIDED: [facility] - Detailed Morphology - [id number] 88419 UOBTVCER - Transvaginal 2nd Trimester - 69948 Cervical Length - [id number] INDICATIONS: 19 weeks gestation of Z3A.19 Prior [...] Visualized Ductal Arch: Visualized SVC: Visualized Cardiac [place]: Visualized Diaphragm: Visualized 3 Vessel View: Visualized [...] have questions, please contact the health rn homecare that requested your imaging first. Thu Vigil, [...] have questions, please contact the health rn homecare that requested your imaging first. ?Iona Ellison, Plastics Spreading Machine Operator Electronically Signed Final Report ?? 01/29/2021 10:31 am Narrative 01/29/2021 10:31 AM EDT OBSTETRICS REPORT ?(Signed Final 01/29/2021 10:31 am) PATIENT INFO: ID #: ? [id number] ?: ??[birth year] (25 yrs)(F) Name: ? HARLEY FRIEDMAN ? Visit Date: 01/29/2021 09:57 am PERFORMED BY: Performed By: ? Archana Hendricks RDMS Attending: ?Terra WELLS, Iona Cho Referred By: ?JOHAN ZAPATA Location: ? [place] SERVICE(S) PROVIDED: UOBTVCER - Transvaginal ??2nd Trimester - ?07640 Cervical Length - [id number] INDICATIONS: 16 weeks gestation of ?Z3A.16 History [...] 01/29/2021 10:31 am) PATIENT INFO: ID #: [id number] : [birth year] (25 yrs)(F) Name: HARLEY FRIEDMAN Visit Date: 01/29/2021 09:57 am PERFORMED BY: Performed By: Archana Hendricks RDMS Attending: Iona Ellison MD Referred By: JOHAN ZAPATA Location: [place] SERVICE(S) PROVIDED: UOBTVCER - Transvaginal 2nd Trimester - 05327 Cervical Length - [id number] INDICATIONS: 16 weeks gestation of Z3A.16 History [...] have questions, please contact the health rn homecare that requested your imaging first. Iona Ellison, Plastics Spreading Machine Operator Electronically Signed Final Report 01/29/2021 10:31 am Johan Zapata MD IMG OB ORDERABLES documented in this encounter Visit Diagnoses Diagnosis History of delivery, currently - Primary with history of pre-term labor History of delivery, currently with history of pre-term labor History of delivery, currently with history of pre-term labor documented in this encounter Care Teams Ivf Embryologist Relationship Specialty Start Date End Date Tania Leos APRN [address] [place] [address] PCP - General Family Medicine 11/20/17 03/04/22 documented as of this encounter
--- OUTSIDE RECORDS SUMMARY | 2024-07-17 17:38 | XMS_ITS | Encounter Summary ---
Author Organization [facility] Address [facility] [place] [address] Care Team Providers Care Rehab Rn Name Role Phone DarriusTania bustamante Tammy DOVE Primary Care Provider [phone] Reason for Visit * Reason Comments Routine Visit Encounter Details Date Type Department Care Team (Late st Contact Info) Description 04/01/2021 3:00 PM EDT Routine Obstetrics [place] [address] Iona Ellison MD [facility] DR OBSTETRICS [place] [address] GA: 24w6d Social History Tobacco Use Types [...] care documented in this encounter Care Teams Rehab Rn Relationship Specialty Start Date End Date Tania Leos APRN [address] [place] [address] [address] [facility] [address] [place] [address] PCP - General Family Medicine 11/20/17 03/04/22 documented as of this encounter
--- OUTSIDE RECORDS SUMMARY | 2024-07-17 17:38 | XMS_ITS | Encounter Summary ---
Author Organization [facility] Address [facility] [place] [address] Care Team Providers Care Station Engineer Name Role Phone DarriusTania bustamante Tammy DOVE Primary Care Provider [phone] Reason for Visit * Reason Comments Routine Visit Encounter Details Date Type Department Care Team (Late st Contact Info) Description 01/29/2021 11:30 AM EDT Routine Obstetrics [place] [address] Iona Ellison MD [facility] DR OBSTETRICS [place] [address] GA: 16w0d Social History Tobacco Use Types [...] unknown onset of labor O42.919 ??? Contraception [id number] ??? PDA: patient was delivered at 26wks [...] labor documented in this encounter Care Teams Station Engineer Relationship Specialty Start Date End Date Tania Leos APRN [address] [place] [address] PCP - General Family Medicine 11/20/17 03/04/22 documented as of this encounter
--- OUTSIDE RECORDS SUMMARY | 2024-07-17 17:38 | XMS_ITS | Encounter Summary ---
Author Organization [facility] Address [facility] [place] [address] Care Team Providers Care Paper Reeler Name Role Phone Dafne Tania Tammy DOVE Primary Care Provider [phone] Encounter Details Date Type Department Care Team (Latest Contact Info) Description 01/12/2018 1:42 PM EDT - 01/12/2018 11:59 PM EDT Hospital En[place] [address] Edvin Baldwin MD [facility] [place] [address] H/O delivery, currently Discharge Disposition: Home Social [...] mouth once daily 0 11/21/2017 vitamin with tbwmsizx-Gs-Lnqf-FA ( VITAMIN) TabletIndications:Super vision of high risk [...] 04:54 pm) PATIENT INFO: ID #: ? [id number] ?: ??[birth year] (22 yrs) Name: ? HARLEY Saucedo YOUNG ? Visit Date: 01/12/2018 02:03 pm PERFORMED BY: Performed By: ? Siri Sanders RDMS Attending: ?Denny WELLS, E ??Melissa Referred By: ?MAGALY WEBSTER MD Location: ? [place] SERVICE(S) PROVIDED: ??[facility] - Detailed Morphology - [id number] ? 53273 ??UOBTV - Viability - Cervical Length -Transvaginal - ?? 93492 ??[id number] INDICATIONS: ??18 weeks gestation of ?Z3A.18 ??H/O [...] Arch: ? Visualized SVC: ? Visualized Cardiac [place]: ?Visualized Diaphragm: ? Visualized 3 Vessel View: [...] 01/12/2018 04:54 pm) PATIENT INFO: ID #: [id number] : [birth year] (22 yrs) Name: HARLEY FRIEDMAN Visit Date: 01/12/2018 02:03 pm PERFORMED BY: Performed By: Siri Sanders RDMS Attending: Edvin Baldwin MD Referred By: MAGALY WEBSTER MD Location: [place] SERVICE(S) PROVIDED: [facility] - Detailed Morphology - [id number] 61747 UOBTV - Viability - Cervical Length -Transvaginal - 44345 [id number] INDICATIONS: 18 weeks gestation of Z3A.18 H/O [...] Visualized Ductal Arch: Visualized SVC: Visualized Cardiac [place]: Visualized Diaphragm: Visualized 3 Vessel View: Visualized [...] labor documented in this encounter Care Teams Paper Reeler Relationship Specialty Start Date End Date Tania Leos APRN [address] [place] [address] PCP - General Family Medicine 11/20/17 03/04/22 documented as of this encounter
--- OUTSIDE RECORDS SUMMARY | 2024-07-17 17:38 | XMS_ITS | Encounter Summary ---
Author Organization [facility] Address [facility] [place] [address] Care Team Providers Care Chain Tender Name Role Phone Dafne Tania Tammy DOVE Primary Care Provider [phone] Encounter Details Date Type Department Care Team (Latest Contact Info) Description 03/10/2021 11:08 AM EDT - 03/10/2021 11:59 PM EDT Hospital [place] [address] Larry Antunez MD [facility] [place] [address] History of delivery, currently ; Premature Discharge [...] mouth once daily 0 11/21/2017 vitamin with xbwnehai-Jl-Xvzm-FA ( VITAMIN) TabletIndications:Super vision of high risk [...] who have questions, please contact the health rehab care assistant that requested your imaging first. ?Iona Ellison, Field Artillery Targeting Technician Electronically Signed Final Report ?? 03/10/2021 12:02 pm Narrative 03/10/2021 12:03 PM EDT OBSTETRICS REPORT ?(Signed Final 03/10/2021 12:02 pm) PATIENT INFO: ID #: ? [id number] ?: ??[birth year] (25 yrs)(F) Name: ? HARLEY FRIEDMAN ? Visit Date: 03/10/2021 11:12 am PERFORMED BY: Performed By: ? Betty Mcdermott RDMS Attending: ?Terra WELLS, Iona Cho Referred By: ?LARRY ANTUNEZ Location: ? [place] SERVICE(S) PROVIDED: UOBTVCER - Transvaginal ??2nd Trimester - ?38688 Cervical Length - [id number] INDICATIONS: 21 weeks gestation of ?Z3A.21 cervix [...] 03/10/2021 12:02 pm) PATIENT INFO: ID #: [id number] : [birth year] (25 yrs)(F) Name: HARLEY FRIEDMAN Visit Date: 03/10/2021 11:12 am PERFORMED BY: Performed By: Betty Mcdermott RDMS Attending: Iona Ellison MD Referred By: LARRY ANTUNEZ Location: [place] SERVICE(S) PROVIDED: UOBTVCER - Transvaginal 2nd Trimester - 56344 Cervical Length - [id number] INDICATIONS: 21 weeks gestation of Z3A.21 cervix [...] who have questions, please contact the health rehab care assistant that requested your imaging first. Iona Ellison, Field Artillery Targeting Technician Electronically Signed Final Report 03/10/2021 12:02 pm [facility] ES documented in this encounter Visit Diagnoses Diagnosis History of delivery, currently with history of pre-term labor Premature Other infants, unspecified (weight) documented in this encounter Care Teams Chain Tender Relationship Specialty Start Date End Date Tania Leos APRN [address] [place] [address] PCP - General Family Medicine 11/20/17 03/04/22 documented as of this encounter
--- OUTSIDE RECORDS SUMMARY | 2024-07-17 17:38 | XMS_ITS | Encounter Summary ---
Author Organization [facility] Address [facility] [place] [address] Care Team Providers Care Second Cook And Baker Name Role Phone Darriusdianna Tania Tammy DOVE Primary Care Provider [phone] Reason for Visit * Reason Comments Laboring Rupture of Membranes * Auth/Cert Specialty Diagnoses / Procedures Referred By Des leblanc Referred To Contact Diagnoses labor IUP @33 Procedures LABOR Referral ID Status Reason Start Date Expiration Date Visits Re quested Visits Authorized [id number] 1 1 Encounter Details Date Type Department Care Team (Latest Contact Info) Description 04/25/2018 4:21 PM EST - 05/08/2018 11:22 AM [facility] [place] [address] Edvin Baldwin MD [facility] [address] [place] [address] Discharge Disposition: Home Social History Tobacco Use [...] Harley Friedman Patient Age: 23 y.o. Language: Citizen Of [place] Race: White Ethnicity: Not nor Admit date: 04/25/2018 Discharge date and time: 05/08/2018 Attending Physician: Edvin Baldwin MD Discharge Physician: Yvette Frias MD Care Provider: [facility] Referring Hospital: [facility] Follow-up Recommendations for Providers: -2w depression screen - 6w follow-up visit Inpatient Provider Contact Information: [facility] HOGSHEAD OPENER Department, Discharge Diagnoses (Hospital Problems) and Secondary [...] admit note cut and paste) Referring Hospital: [facility] Referring Provider: So Webster MD Initial Care Provider (if early referral or co-managed by [facility]): [facility] ?? Chief Complaint: Harley Friedman [...] over hours so she was transported to [facility] for further management. Betamethasone administered and MgSO4 bolus given. ?? On presentation to [facility], she complains of painful kicks but otherwise is without complaint. ?? 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 She will be followed up in the clinic in 6 weeks, with a depression screen at 2 weeks. She was uninterested in setting up visits with a counselor or therapists when she was offered. Delivery Information Information for the patient's : Devan Friedman [[id number]] INFORMATION Devan Friedman 05/06/2018 2:41 PM by Vaginal, Spontaneous Delivery Sex: male Gestational Age: 34w4d [place] Measurements: Weight: 4 lb 11.8 oz (2150 [...] VITAMIN Tab Daily Generic drug: vitamin with jghyjkqe-Vg-Xnvf-FA Refills: 0 Smoking Status at Discharge: Social History Tobacco Use Smoking Status Former Smoker ??? Packs/day: 0.25 ??? Types: Cigarettes ??? Last attempt to quit: 07/20/2016 ??? Years since quittin.8 Smokeless Tobacco Never Used Instructions Given to Patient at Discharge: Patient Instructions Patient Instructions Follow-up: Six weeks care provider. If you were seen at [facility] you will be contacted to set up [...] Depression Contact Numbers: If you see an it manager call: [phone] 9 am - 5 pm, after 5 pm If you see a currency machine operator call: [phone] all hours If you see a family practitioner call: [phone] all hours If you were transferred to our institution for delivery and cannot reach your local OB provider, call the it manager numbers. Pain Control: Alternate 625 mg [...] exercised vigorously before or you are a ironing pleater, you can work up to vigorous-intensity activity. Stop exercising if you feel pain.?? https://www.[facility].org/Patients/FAQs/Sekjfvct-Huslz-Yarjhqoti?IsMobileSet=false#ho w Nutrition: Your diet following the of [...] the OB Clinic. Call your doctor or currency machine operator for: ??? Seizure (call 911) ??? Headache [...] prior to you follow up appointment. Your [facility] Provider can be reached during office hours at ??? Midwives ??? Obstetricians ??? Services AFTER OFFICE HOURS for the it manager or currency machine operator substation supervisor * Patient Instructions* Crystal Pereira MD - 05/08/2018 10:22 AM EST Patient Instructions Follow-up: Six weeks care provider. If you were seen at [facility] you will be contacted to set up [...] Depression Contact Numbers: If you see an it manager call: [phone] 9 am - 5 pm, after 5 pm If you see a currency machine operator call: [phone] all hours If you see a family practitioner call: [phone] all hours If you were transferred to our institution for delivery and cannot reach your local OB provider, call the it manager numbers. Pain Control: Alternate 625 mg [...] mouth once daily 0 11/21/2017 vitamin with ztkfporv-Lk-Ndit-FA ( VITAMIN) TabletIndications:Super vision of high risk in second trimester,Medication exposure during first trimester of Daily 12/29/2015 ibuprofen (ADVIL;MOTRIN) 200 mg Tablet Take 3 tablets by mouth every 6 hours as needed for Pain. 30 tablet 05/08/2018 02/19/2021 documented as of this encounter Progress Notes * Yvette Frias MD - 05/08/2018 10:17 AM EST Procedure Note 05/08/2018 Preoperative diagnosis: Desires shelter contraception Postoperative diagnosis: Same HPI: Harley Friedman is a 23 y.o. with a PMH significant for developmental delay and depression who desires bed bug exterminator contraception. She delivered a viable male infant [...] myself following the procedure. Nexplanon Lot #: [id number] - [id number], Expd 06/2020 Assessment/Plan: Harley Friedman is a [...] received this morning from Harley's DCF case filler Jonathan Emilia advising that [facility] was granted custody of Harley's , Luis, last night. He states that he spoke with Harley last nightto inform her of this by phone, but is not certain how much she understood. There will be a court hearing in the next 1-2 days, and he is also waiting for confirmation of this information and will bein touch with Harley and this Healthcare Social Worker about the date and time of the hearing once he becomes aware. Plan: [facility] granted custody of Jocelynes infant last night. SW will continue to follow. URBANO Falcon Pager: [phone] * Yvette Frias MD - 05/08/2018 6:39 AM EST Vaginal Delivery Note Information for the patient's : Bailey, Baby boy [[id number]] Delivery Date and Time:05/06/2018 2:41 PM Delivery [...] baby is doing, and proudly showed this Healthcare Social Worker a picture of him on her cell phone. Advised Harley that Jonathan Nieto had called this morning and that this Healthcare Social Worker had informed him of the baby's . [...] will continue to follow. URBANO Falcon Pager: [phone] * Crystal Pereira MD - 05/07/2018 7:37 AM EST Vaginal Delivery Note Information for the patient's : Bailey, Baby boy [[id number]] Delivery Date and Time:05/06/2018 2:41 PM Delivery [...] Pt has vomited twice since return from [facility]. She was attempting to eat her supper. [...] 1644-Patient assisted to ambulate, tolerated walking to [facility] done.Noted blood Clot appx golfball size, bleeding wnl. Dr. West notified. Patient unable to void, BS- 33ml. Patient wheeled to [facility] to visit baby. * Stefani West MD [...] accels / no decels, Cat 1 FHT Banner shows q2-3 min ctx Harley Friedman is [...] until 35 weeks then transport back to [facility] ?? 2. Status - Continuous EFM on [...] until 35 weeks then transport back to [facility] ?? 2. Status - Continuous EFM on [...] (DEPRESSION) 05/15/2014 ??? [place] (headache) 02/13/2014 ??? Hospital-ADHD (attention deficit hyperactivity [...] Pt reported she ate 100% of breakfast 05/04.Healthcare Social Worker provided pt with cafeteria menu for more [...] until 35 weeks then transport back to [facility] ?? 2. Status - Continuous EFM on [...] still , when stable to transport back [facility] ?? 2. Status - Continuous EFM on [...] , when stable to transport back to [facility] ?? 2. Status - Continuous EFM on [...] LARRY ANTUNEZ MD * Cinthya Galvez, COMPUTER SYSTEMS SOFTWARE ARCHITECT - 05/02/2018 1:48 PM EST Social Work Note Office of Care Management Follow Up: Harley is now 34+0 weeks gestation. This is HD #8. Harley remains hospitalized for advanced cervical dilation. She was admitted with concern for labor, however this has now stalled. Should she remain undelivered until 35 weeks gestation, she may be transferred back to her home hospital, [facility]. Met with Harley this morning in her room on the , accompanied by COMPUTER SYSTEMS SOFTWARE ARCHITECT Dillon Butt, who is orienting. Harley was in generally good spirits, although expressed some frustration that her father has not come to visit her this admission as she had hoped. Her mother is back in [facility] doing volunteer work, per Harley, so she has been by herself here for a while. She states she is occupying herself mostly by watching TV and using her cell phone. Harley expressed ongoing concern regarding DCF involvement and [facility]'s plan to petition for custody of Harley's [...] reach out to her DCF worker, Jonathan Nieot, today, but is having a hard time willing herself to do so. She is not sure if her mom has spoken with Jonathan about her desire to care for Harley's baby. Plan: SW will continue to follow. URBANO Falcon Pager: [phone] * Kaitlin Vásquez RN - 05/02/2018 11:16 AM EST OFFICE OF CARE MANAGEMENT/fire fighter BP provider team is considering transferring patient back to [facility] if she remains to 35 weeks gestation. Call in [place] Medicaid provider services at [phone]. Spoke with Tommie Jeff who confirmed that patient's insurance would cover a non-emergency ambulance transfer to another facility. Call reference number was [id number]. Kaitlin Vásquez RN, CM * Homa [place]a [...] , when stable to transport back to [facility] ?? 2. Status - Continuous EFM on [...] delivery. Nonstress test Consultation with social service [facility] Iona Ellison MD * So Prajapati RN [...] patient and discussed her management with Dr. Henrandez.I reviewed Dr. Hernandez's note and agree with [...] presented via ambulance @ 1625 transfer from [facility] patient has existing iv 20 guage in right hand, infusing Lactated rRingers and Magnesium Sulfate via infusion pump at 1 gram per hour. Transferred to labor bed under own power, monitors on plan of care discussed Dr Hernandez notified at bedside documented in this encounter H&P Notes * Homa Espana MD - 04/25/2018 6:09 PM EST Obstetrical Admission Note Referring Hospital: [facility] Referring Provider: So Webster MD Initial Care Provider (if early referral or co-managed by [facility]): [facility] Chief Complaint: Harley Friedman was [...] over hours so she was transported to [facility] for further management. Betamethasone administered and MgSO4 bolus given. On presentation to [facility], she complains of painful kicks but otherwise is without complaint. 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 vitamin with lwztzfbb-Jl-Jgko-FA ( VITAMIN) Tablet Daily Taking at Unknown [...] 135, Variability: moderate, Accels: yes, Decels: none, Banner: CTX Q 2-5 min Category: I Record [...] vs. Advanced cervical dilation -- no cervical changeover operator several hours but contractions seen on monitoring [...] seen and discussed with Dr. Silvestre, Attending HOGSHEAD OPENER. Homa Espana MD 04/25/2018 Associated attestation - Evie Silvestre MD - 04/26/2018 12:02 AM EST 22 year old at 33w0d presents due to advanced cervical dilation noted at office visit. Patient was evaluated by her regular surface grinder tender and noted to have some contractions. Given [...] Your Health or Care? Baby going to [facility] Goal: Fall Prevention-Safe Patient Handling Outcome: [...] To Be Addressed cognitive/perceptual concerns;other (see comments) (CTYF involvement) Readmission Within The Last 30 Days [...] Appropriate) 05/05/18 0634 Interdisciplinary Rounds/Family Conf Participants nursing;patient;welfare case worker;physician Problem: (Vaginal Delivery) (Adult) Goal: Signs and [...] ice packs after pumping X 48 hours [place] oil to nipples prior to pumping Frequent and prolonged maternal- skin to skin contact Close support and follow up 15 minutes were spent with this family Jennifer Albert RN, IBCLC [facility] Services * Plan of Care - Madelin [...] Your Health or Care? [facility] -- Goal: Fall Prevention-Safe Patient Handling Outcome: [...] To Be Addressed cognitive/perceptual concerns;other (see comments) ([facility] involvement) Readmission Within The Last 30 [...] Appropriate) 05/05/18 0634 Interdisciplinary Rounds/Family Conf Participants nursing;patient;welfare case worker;physician Problem: (Vaginal Delivery) (Adult) Goal: Signs and [...] for the patient's : Bailey, Baby boy [[id number]] DELIVERY SUMMARY FOR Baby seun Friedman (please [...] Yes Other Personnel: Provider Role Emily Garcia, cat and dog bather Nurse Larry Antunez MD Tank Operator Vivian Chowdhury RN Delivery Assist Anesthesia Method: [...] to RA , transferred to ICN Maternal [place] Feeding and Skin to Skin Skin to skin initiated date/time: 05/06/2018 1500 Skin to skin with: Mother [place] Medications No data filed Measurements No data [...] Appropriate) 05/05/18 0634 Interdisciplinary Rounds/Family Conf Participants nursing;patient;welfare case worker;physician Problem: Labor (Adult,Obstetrics,Pediatric) Goal: Signs and Symptoms [...] monitoring per OB labor CPG, support for bed bug exterminator hospitalization INDIVIDUALIZED FALL PREVENTION INTERVENTIONS: Patient-specific fall [...] Your Health or Care? [facility] going [facility] -- Goal: Fall Prevention-Safe Patient Handling Outcome: [...] To Be Addressed cognitive/perceptual concerns;other (see comments) (CTYF involvement) Readmission Within The Last 30 Days [...] Appropriate) 05/05/18 0634 Interdisciplinary Rounds/Family Conf Participants nursing;patient;welfare case worker;physician * Plan of Care - Shanti Wade [...] Your Health or Care? Baby going to [facility] -- Goal: Fall Prevention-Safe Patient Handling [...] Appropriate) 05/05/18 0634 Interdisciplinary Rounds/Family Conf Participants nursing;patient;welfare case worker;physician Problem: Labor (Adult,Obstetrics,Pediatric) Goal: Signs and Symptoms [...] Your Health or Care? [facility] Goal: Fall Prevention-Safe Patient Handling Outcome: Ongoing [...] To Be Addressed cognitive/perceptual concerns;other (see comments) ([facility] involvement) Readmission Within The Last 30 [...] 6 cm and was transferred here from [facility]. Since admission here she has [...] mother Daniela, and her Developmental Services case filler, Cassia Paris. Introduced self/reviewed role; services accepted. Reason for Hospitalization: Reason for Admission as Stated by Patient: I want this baby out ?? Harley Friedamn is a 22 y.o. at 33w0d weeks gestation. She presented to her routine appointment and was found to be 6/100/0. She was found to be brayden about every 10 minutes. Multiple exams documented and unclear about status of ROM - clear fluid and intact membranes both documented. Her cervical exam was stable over hours so she was transported to [facility] for further management. Past Medical History: Diagnosis [...] is no Advance Directive on file. Per [place] Surrogacy law, Harley's mother, Daniela Friedman, would [...] Harley lives in a two-bedroom apartment in [place], [place] with her mother and her mother's [...] Supports/Community Resources: Harley receives Developmental Services through [facility]. She has a case filler, Cassia Paris, who is here with her [...] Harley also attends a DBT group at [facility]. Harley reports that she has WIC and [place] Medicaid. She does not have Food [place] because her mother's income would be counted toward eligibility since they live in the same home. She receives SSI and has access to some of this money to use for purchase of items for the baby as needed. Harley does not have a salesperson driver's license. Daniela does drive and has [...] has developmental disabilities and receives services through [facility] and lives with a shared living provider [...] in the care of Harley's cousin in [place]. Harley relinquishedher parental rights to Diana, who [...] known Other Pertinent/Service Specific Information: DCF case filler Jonathan Nieto ([phone]) called today to report that he is aware that Harley is at [facility] and had received a report from [facility]. Jonathan indicated that DCF has an extensive [...] Coverage: Yes Preferred Pharmacy: [facility] in [facility] Other: None Primary Care Provider: Tania Leos, GERIATRICIAN [phone] Patient/Caregiver Goals of Treatment: To get this baby out. I feel like I'm in long-term in this hospital room Potential Needs for Transition of Care: Rehab/SNF: No Home Health: TBD DME: TBD Dialysis: No Community Resources: Involved as above Transportation: Mom or [facility] case filler Other: None Anticipated Barriers to Discharge/Special Considerations: [...] transition of care planning. URBANO MEDINA Pager: [phone] * Plan of Care - Yarely Quintana [...] independent -- Activity Activity Type up ad corrian -- Activity Assistance Provided independent -- Assistive [...] PM EST 05/07/2018 9:21 AM EST Narrative [facility] - 05/07/2018 9:21 AM EST Specimen requisition ordered. ??Separate Pathology report to follow Resulting Agency Comment Spec In Lab E Melissa Baldwin MD PATHOLOGY/CYTOLOG Y ORDERABLES Performing Organization Address City/State/[facility] Co de Phone Number [facility] [place] [address] * Surgical Pathology Report (05/06/2018 2:48 PM EST) Final Diagnosis [id number] ? Location: ; BP01; A The signing [...] Nemesio Jeff Verified: ??05/09/2018 ?Pathologist Performed at: ??-[facility] Dept. of Pathology, [place], [place] CLINICAL INFORMATION Specimen Submitted: A - [...] percent of the parenchymal volume. Sections/Processi ng: Nursing Project Coordinator sections in 8 cassettes as follows: ? A1: ??Membrane roll ? A2: ??Proximal and distal cord ? A3-A5: ??Full thickness parenchyma ? A6-A8: ??Parenchymal lesions ??ejr 05/09/2018 1:24 PM EST [facility] TISSUE SPECIMEN FROM PLACENTA / Unknown 05/06/2018 2:48 PM EST 05/06/2018 2:48 PM EST Cornell Cardona MD PATHOLOGY/CYTOLOGY O RDERAJEISON [facility] [place] [address] * US OB Follow Up (04/26/2018 8:53 [...] 10:38 am) PATIENT INFO: ID #: ? [id number] ?: ??[birth year] (22 yrs) Name: ? HARLEY Jeff Lewis BAILEY ? Visit Date: 04/26/2018 08:10 am PERFORMED BY: Performed By: ? Kaitlin Barajas RDMS Attending: ?Denny WELLS, Edvin ??Melissa Referred By: ?SO WEBSTER MD Location: ? [facility] SERVICE(S) PROVIDED: ??UOBFOL - Efw - Growth ??- [place] - [id number] ?[id number] INDICATIONS: ??33 weeks gestation of ?Z3A.33 ?? [...] 04/26/2018 10:38 am) PATIENT INFO: ID #: [id number] : [birth year] (22 yrs) Name: HARLEY FRIEDMAN Visit Date: 04/26/2018 08:10 am PERFORMED BY: Performed By: Kaitlin Barajas RDMS Attending: Edvin Baldwin MD Referred By: SO WEBSTER MD Location: [facility] SERVICE(S) PROVIDED: UOBFOL - Efw - Growth - [place] - [id number] INDICATIONS: 33 weeks gestation of Z3A.33 labor [...] RBC, Urine <1 0 - 4 /HPF [facility] WBC, Urine 3 0 - 5 /HPF [facility] Squamous Epithelial Cells Raw Data, Urine 3 <=4 /HPF [facility] Amorphous Crystals, Urine Rare(A) None /HPF [facility] Urine specimen (specimen) 04/25/2018 7:15 PM EST 04/25/2018 7:23 PM EST Narrative Resulting Agency Comment Spec In Lab Betty Hernandez MD URINE ORDERABLES [facility] [place] [address] * (ABNORMAL) Urinalysis with reflex Culture (04/25/2018 7:15 PM EST) Glucose, Urine Dipstick Negative Negative mg/dL [facility] Protein, Urine Dipstick Negative Negative mg/dL [facility] Bilirubin, Urine Dipstick Negative Negative mg/dL [facility] Comment: Clinical correlation required for positive Urine Bilirubin results as false positive may occur with some drugs and drug related products. If a false positive is suspected a serum total bilirubin should be considered if clinically indicated. Urobilinogen, Urine Dipstick Normal Normal mg/dL [facility] pH, Urn (dipstick) 6.0 5.0 - 8.0 [facility] Blood, Urine Dipstick Large(A) Negative mg/dL [facility] Ketone, Urine Dipstick >=80(Critica l) Negative mg/dL [facility] Comment: Urinalysis result NOT critical without a combination of Glucose greater than or equal to 500mg/dl AND Ketones greater than or equal to 80mg/dl. Nitrite, Urine Dipstick Negative Negative [facility] Leukocytes, Urine Dipstick Small(A) Negative [facility] Appearance, Urine Dipstick Hazy(A) Clear [facility] Specific [place] Urine Automated 1.021 1.002 - 1.030 [facility] Color, Urine Dipstick Yellow Yellow [facility] Reflex to Culture No [facility] Urine specimen (specimen) 04/25/2018 7:15 PM EST 04/25/2018 7:23 PM EST Narrative Resulting Agency Comment Spec In Lab E Melissa Baldwin MD URINE ORDERABLES Performing Organization Address [facility]/ZIP Co de Phone Number [facility] [place] [address] * ABORH Recheck Status (04/25/2018 7:06 PM EST) ABORH Type Recheck Completed [facility] Blood specimen (specimen) 04/25/2018 7:06 PM EST 04/25/2018 7:15 PM EST Narrative Resulting Agency Comment Spec In Lab Betty Hernandez MD BLOOD BANK LAB ORDER NINI Performing Organization Address [facility] Co de Phone Number [facility] [place] [address] * (ABNORMAL) Differential, Automated (04/25/2018 7:06 PM EST) Neutrophil % 90.1 % [facility] Neutrophil Absolute 10.98(H) 1.70 - 6.10 x10(3)/mc L [facility] Lymph % 8.6 % [facility] Lymphocytes Abs 1.0 0.9 - 3.2 x10(3)/mc L [facility] Monocyte % 0.4 % [facility] Monocyte Abs 0.0(L) 0.3 - 0.9 x10(3)/mc L [facility] Eos % 0.2 % [facility] Eosinophils Abs 0.0 0.0 - 0.4 x10(3)/[facility] LABORATORY Basophil % 0.2 % [facility]OR[facility] Baso Absolute 0.0 0.0 - 0.1 x10(3)/[facility] LABORATORY Immature Gran % 0.50 % [facility] Comment: Immature granulocytes(IG's)percentage and absolute count will include metamyelocytes, myelocytes, and promyelocytes. Blood smears from CBCs yielding IG's will be scanned manually for concordance. If this scan disagrees with the automated IG or if promyelocytes are noted, a manual differential will be performed. Immature Gran Absolute 0.06(H) 0.00 - 0.04 x10(3)/[facility] LABORATORY Blood specimen (specimen) 04/25/2018 7:06 PM EST 04/25/2018 7:24 PM EST Narrative Resulting Agency Comment Spec In Lab Betty Hernandez MD HEMATOLOGY ORDERABLE S [facility] [place] [address] * (ABNORMAL) Hemogram (04/25/2018 7:06 PM EST) White Blood Cell 12.2(H) 4.0 - 9.5 x10(3)/[facility] LABORATORY Red Blood Cell 4.37 4.00 - 5.21 x10(6)/[facility] LABORATORY Hemoglobin 12.7 11.7 - 15.5 gm/dL [facility] Hematocrit 38.7 35.7 - 45.8 % [facility] Mean Cell Volume 88.6 82.6 - 94.4 fL [facility] Mean Cell Hemoglobin 29.1 27.1 - 32.0 pg [facility] Mean Cell Hemoglobin Concentration 32.8 31.7 - 35.0 gm/dL [facility]OR[facility] Platelet 227 145 - 357 x10(3)/[facility] LABORATORY RDW Standard Deviation 40.0 37.0 - 46.0 [facility] LABORATORY RDW coefficient of variation 12.4 11.5 - 14.1 % [facility]OR[facility] Mean Platelet Volume 12.1 7.6 - 12.9 [facility] LABORATORY NRBC% auto 0.0 % [facility] NRBC Absolute 0.000 0.000 - 0.000 x10(3)/mc L [facility] LABORATORY Blood specimen (specimen) 04/25/2018 7:06 PM EST 04/25/2018 7:24 PM EST Narrative Resulting Agency Comment Spec In Lab Betty Hernandez MD HEMATOLOGY ORDERABLE S Performing Organization Address City/[facility]/ZIP Co de Phone Number [facility] [place] [address] * Antibody screen (04/25/2018 7:06 PM EST) Ab Screen Interp Negative [facility] Expires at [id number] on: 2018 [facility] Blood specimen (specimen) 04/25/2018 7:06 PM EST 04/25/2018 7:15 PM EST Narrative Resulting Agency Comment Spec In Lab Betty Hernandez MD BLOOD BANK LAB ORDER NINI Performing Organization Address City/[facility]/ZIP Co de Phone Number [facility] [place] [address] * ABO/Rh Typing (04/25/2018 7:06 PM EST) ABORH Type O Pos [facility] Blood specimen (specimen) 04/25/2018 7:06 PM EST 04/25/2018 7:15 PM EST Narrative Resulting Agency Comment Spec In Lab Betty Hernandez MD BLOOD BANK LAB ORDER NINI [facility] [place] [address] * GC/Chlam (04/25/2018 6:43 PM EST) GC Gene Amp Negative Negative [facility] Comment: The only FDA approved specimen types for this assay are cervical, vaginal, urethral and urine. Non-FDA approved sources are eye, throat and rectal and have been internally validated. GC Source Cervical [facility] Chlamydia Gene Amp Negative Negative [facility] Comment: The only FDA approved specimen types for this assay are cervical, vaginal, urethral and urine. Non-FDA approved sources are eye, throat and rectal and have been internally validated. Chlm Source Cervical [facility] Cervical swab (specimen) 04/25/2018 6:43 PM EST 04/25/2018 7:34 PM EST Narrative Resulting Agency Comment Spec In Lab Betty Hernandez MD MICROBIOLOGY - GENER AL ORDERABLES [facility] [place] [address] * (ABNORMAL) - Subsequent External Results (04/25/2018 [...] Subsequent External Results (03/23/2018) Glucose 1 hour 123(Grease Rack Worker al Lab) 03/23/2018 Historical Provider POINT OF CARE PATSY T ORDERABLES * (ABNORMAL) - Initial External Results (11/14/2017) Hemoglobin 13.1(Exter nal Lab) Hematocrit 39.1(Exter nal Lab) Platelet 285(Grease Rack Worker al Lab) Syphilis IgG/IgM negative(E xternal Lab) [...] Provider: Zack Lopez)1400 (New Bag - Provider: Emily Garcia, OSCAR) PRN Medication Order 05/06/2018 05/07/2018 [...] Discontinued documented in this encounter Care Teams Second Cook And Baker Relationship Specialty Start Date End Date Tania Leos, PETTY [address] [place] [address] PCP - General Family Medicine 11/20/17 03/04/22 documented as of this encounter
--- OUTSIDE RECORDS SUMMARY | 2024-07-17 17:38 | XMS_ITS | Encounter Summary ---
[place] [address] Care Team Providers Care Report Programmer Name Role Phone Darriusdianna Tania Tammy DOVE Primary Care Provider [phone] Reason for Visit * Reason Comments Ultrasound Finding Encounter Details Date Type Department Care Team (Late st Contact Info) Description 02/28/2018 10:00 AM EDT Office [place] [address] Tarsha Tejada MD [address] [place] [address] [place] [address] Suspected anomaly, antepartum, single or unspecified fetus [...] She was evaluated by Dr. Baldwin from [facility] at 18 weeks gestation and the [...] for Pain.30 tablet 12 ??? vitamin with jrxibrtt-El-Xlqh-FA ( VITAMIN) Tablet Daily No current facility-administered [...] fetus documented in this encounter Care Teams Report Programmer Relationship Specialty Start Date End Date Tania Leos APRN [address] [place] [address] PCP - General Family Medicine 11/20/17 03/04/22 documented as of this encounter
--- OUTSIDE RECORDS SUMMARY | 2024-07-17 17:38 | XMS_ITS | Encounter Summary ---
Author Organization [facility] Address [facility] [place] [address] Care Team Providers Care Associate Pastor Name Role Phone Timmy Dailey MD, Alec Primary Care Provider [phone] Reason for Visit * Reason Comments Ultrasound Encounter Details Date Type Department Care Team (Late st Contact Info) Description 04/26/2016 8:30 AM EST Office Visit Obstetrics [place] [address] Edvin Baldwin MD [facility] [address] [place] [address] Medication exposure during first trimester of Social [...] weeks for growth, with referral back to [facility] if the growth is abnormal, due to [...] high-risk documented in this encounter Care Teams Associate Pastor Relationship Specialty Start Date End Date Alec [place] [address] PCP - General 05/04/10 06/17/16 documented as of this encounter
--- OUTSIDE RECORDS SUMMARY | 2024-07-17 17:38 | XMS_ITS | Encounter Summary ---
Author Organization Replaced By [facility] Address [facility] [place] [address] Care Team Providers Care Director Of Strategic Partnerships Name Role Phone Dafne Tania Tammy DOVE Primary Care Provider [phone] Encounter Details Date Type Department Care Team (Latest Contact Info) Description 01/29/2021 9:55 AM EDT - 01/29/2021 11:59 PM EDT Hospital [place] [address] Johan Zapata MD [facility] OBSTETRICS [place] [address] History of delivery, currently Discharge Disposition: Home [...] mouth once daily 0 11/21/2017 vitamin with biwfexlh-Hv-Krfk-FA ( VITAMIN) TabletIndications:Supe rvision of high risk [...] have questions, please contact the health career specialist that requested your imaging first. ?Iona Ellison, Canned Food Reconditioning Inspector Electronically Signed Final Report ?? 01/29/2021 10:31 am Narrative 01/29/2021 10:31 AM EDT OBSTETRICS REPORT ?(Signed Final 01/29/2021 10:31 am) PATIENT INFO: ID #: ? [id number] ?: ??[birth year] (25 yrs)(F) Name: ? HARLEY Tomer FRIEDMAN ? Visit Date: 01/29/2021 09:57 am PERFORMED BY: Performed By: ? Archana Hendricks RDMS Attending: ?Terra WELLS, Iona Cho Referred By: ?JOHAN ZAPATA Location: ? [place] SERVICE(S) PROVIDED: UOBTVCER - Transvaginal ??2nd Trimester - ?05653 Cervical Length - [id number] INDICATIONS: 16 weeks gestation of ?Z3A.16 History [...] 01/29/2021 10:31 am) PATIENT INFO: ID #: [id number] : [birth year] (25 yrs)(F) Name: HARLEY FRIEDMAN Visit Date: 01/29/2021 09:57 am PERFORMED BY: Performed By: Archana Hendricks RDMS Attending: Iona Ellison MD Referred By: JOHAN ZAPATA Location: [place] SERVICE(S) PROVIDED: UOBTVCER - Transvaginal 2nd Trimester - 23168 Cervical Length - [id number] INDICATIONS: 16 weeks gestation of Z3A.16 History [...] have questions, please contact the health career specialist that requested your imaging first. Iona Ellison, Canned Food Reconditioning Inspector Electronically Signed Final Report 01/29/2021 10:31 am Johan Zapata MD [facility] OB ORDERABLES documented in this encounter Visit Diagnoses Diagnosis History of delivery, currently with history of pre-term labor documented in this encounter Care Teams Director Of Strategic Partnerships Relationship Specialty Start Date End Date Tania Leos APRN [address] [place] [address] PCP - General Family Medicine 11/20/17 03/04/22 documented as of this encounter
--- OUTSIDE RECORDS SUMMARY | 2024-07-17 17:38 | XMS_ITS | Encounter Summary ---
Author Organization [facility] Address [facility] [place] [address] Care Team Providers Care Oil Program Compliance Specialist Name Role Phone DarriusTania bustamante Tammy DOVE Primary Care Provider [phone] Reason for Visit * Reason Onset Date Comments Results 01/19/2018 Encounter Details Date Type Department Care Team (Late st Contact Info) Description 01/19/2018 Telephone Obstetrics [place] [address] [facility] [place] [address] Results Social History Tobacco Use Types Packs/Day [...] Notes * Telephone Encounter - Soham Coul[facility] - 01/19/2018 5:04 PM EDT Genetic Counseling Result Note I informed Aruna Friedman of the following results by phone today: [place] Test: Condition Result Probability Trisomy 21 Low [...] on filedocumented in this encounter Care Teams Oil Program Compliance Specialist Relationship Specialty Start Date End Date Tania Leos APRN [address] [place] [address] PCP - General Family Medicine 11/20/17 03/04/22 documented as of this encounter
--- OUTSIDE RECORDS SUMMARY | 2024-07-17 17:38 | XMS_ITS | Encounter Summary ---
Author Organization [facility] Address [facility] [place] [address] Care Team Providers Care General Office Dispatcher Name Role Phone Darriusdianna Tania Tammy DOVE Primary Care Provider Encounter Details Date Type Department Care Team (Latest Contact Info) Description 03/18/2021 11:30 AM EDT - 03/18/2021 11:59 PM EDT Hospital En[place] [address] Edvin Baldwin MD [facility] OBSTETRICS [place] [address] History of delivery, currently Discharge Disposition: Home [...] mouth once daily 0 11/21/2017 vitamin with gnhnpfus-Xc-Rqma-FA ( VITAMIN) TabletIndications:Super vision of high risk [...] who have questions, please contact the health medical care manager that requested your imaging first. ? Cameron Baldwin, Staff Physician Electronically Signed Final Report ?? 03/18/2021 02:31 pm Narrative 03/18/2021 2:32 PM EDT OBSTETRICS REPORT ?(Signed Final 03/18/2021 02:31 pm) PATIENT INFO: ID #: ? [id number] ?: ??[birth year] (25 yrs)(F) Name: ? HARLEY Tomer Saucedo YOUNG ? Visit Date: 03/18/2021 11:54 am PERFORMED BY: Performed By: ? Maral SWENSON, ??Jackie Attending: ?Cameron Baldwin MD Referred By: ?MADELINE ROY Location: ? [place] SERVICE(S) PROVIDED: UOBTVCER - Transvaginal ??2nd Trimester - ?36972 Cervical Length - [id number] INDICATIONS: 22 weeks gestation of ?Z3A.22 h/o [...] 03/18/2021 02:31 pm) PATIENT INFO: ID #: [id number] : [birth year] (25 yrs)(F) Name: HARLEY FRIEDMAN Visit Date: 03/18/2021 11:54 am PERFORMED BY: Performed By: Jackie Alicia RDMS Attending: Cameron Baldwin MD Referred By: MADELINE ROY Location: [place] SERVICE(S) PROVIDED: UOBTVCER - Transvaginal 2nd Trimester - 19984 Cervical Length - [id number] INDICATIONS: 22 weeks gestation of Z3A.22 h/o [...] who have questions, please contact the health medical care manager that requested your imaging first. Cameron Baldwin, Staff Physician Electronically Signed Final Report 03/18/2021 02:31 pm E Melissa Baldwin MD IMG OB ORDERAB LES documented in this encounter Visit Diagnoses Diagnosis History of delivery, currently with history of pre-term labor documented in this encounter Care Teams General Office Dispatcher Relationship Specialty Start Date End Date Tania Leos, HERBARIUM CURATOR [address] [place] [address] PCP - General Family Medicine 11/20/17 03/04/22 documented as of this encounter
--- OUTSIDE RECORDS SUMMARY | 2024-07-17 17:38 | XMS_ITS | Encounter Summary ---
Author Organization [facility] Address [facility] [place] [address] Care Team Providers Care Brim Buster Name Role Phone Darriusdianna Tania Tammy DOVE Primary Care Provider [phone] Encounter Details Date Type Department Care Team (Latest Contact Info) Description 02/28/2018 10:00 AM EDT - 02/28/2018 11:59 PM EDT Hospital Encounter Non-[place] [address] Edvin Baldwin MD [facility] [address] [place] [address] Choroid plexus cyst of fetus affecting care [...] mouth once daily 0 11/21/2017 vitamin with nxdctdft-Jr-Pgfe-FA ( VITAMIN) TabletIndications:Super vision of high risk [...] T ?(Age): 1995(22y) ? Med Rec#: ? [id number] ?Sex: ?F ? [place] Loc: ? [facility] ?Ht / Wt: ??(cm)/ (kg) ? Pt. Loc: ?Echo Lab ? Study Date: ?? 02/28/2018 ?Pt. Type: Study Quality: ? Referring: Cameron Baldwin Referring: Edvin BALDWIN REBECCA Reading: Tarsha Tejada ([id number]) Neon Sign Mechanic: Pippa Franklin Diagnosis: *Abnormal ultrasonic finding on [...] Normal heart rate (153 bpm). Normal mechanical MA interval (116 ms). No arrhythmia detected. 6. [...] a patent foramen ovale (PFO). ?There is npsyg-vn-cqgl shunting across the patent foramen ovale with [...] is a patent ductus arteriosus. ?There is tkbdn-we-wxrh shunting across the patent ductus arteriosus with [...] 02/28/2018 12:02:28 Images reviewed and interpretation verified [facility] Cardiac Ultrasound Laboratory Procedure Note Tarsha Tejada MD - 02/28/2018 Procedure: Pediatric Echocardiogram Patient: BAILEY Saucedo (Age): 1995(22y) Med Rec#: [id number] Sex: F Site Loc: [facility] Ht / Wt: (cm)/ (kg) Pt. Loc: Echo Lab Study Date: 02/28/2018 Pt. Type: Study Quality: Referring: Cameron Baldwin Referring: Edvin BALDWIN REBECCA Reading: Tarsha Tejada ([id number]) Neon Sign Mechanic: Pippa Franklin Diagnosis: *Abnormal ultrasonic finding on [...] Normal heart rate (153 bpm). Normal mechanical MA interval (116 ms). No arrhythmia detected. 6. [...] a patent foramen ovale (PFO). There is annjb-ww-erfm shunting across the patent foramen ovale with [...] is a patent ductus arteriosus. There is qglzz-mu-hwnw shunting across the patent ductus arteriosus with [...] 02/28/2018 12:02:28 Images reviewed and interpretation verified [facility] Cardiac Ultrasound Laboratory E Melissa Baldwin MD ECHO ORDERABLES documented in this encounter Visit Diagnoses Diagnosis Choroid plexus cyst of fetus affecting care of mother, antepartum, single or unspecified fetus Umbilical vein abnormality affecting , single or unspecified fetus anomaly Multiple congenital anomalies, so described documented in this encounter Care Teams Brim Buster Relationship Specialty Start Date End Date Tania Leos, CONCRETE BATCH PLANT OPERATOR [address] [facility] [place] [address] PCP - General Family Medicine 11/20/17 03/04/22 documented as of this encounter
--- OUTSIDE RECORDS SUMMARY | 2024-07-17 17:38 | XMS_ITS | Encounter Summary ---
Author Organization [facility] Address [facility] [place] [address] Care Team Providers Care Avionics Electronics Technician Name Role Phone Darriusdianna Tania Tammy DOVE Primary Care Provider [phone] Encounter Details Date Type Department Care Team (Late st Contact Info) Description 02/19/2021 11:45 AM EDT Routine Obstetrics [place] [address] Thu Antunez MD [facility] DR OBSTETRICS [place] [address] GA: [id number] Social History Tobacco Use Types [...] fluid, normal placenta. Cervix length 3.1cm. Had [place] screen with low riskfor trisomy 21 per her report. Given she was delivered at 24 weeks and she has had 2 34 week deliveries, I recommend a follow up cervix length US in 2-3 weeks. She declined [place]. She has local OB follow up care. [...] who have questions, please contact the health childcare provider that requested your imaging first. ?Iona Ellison, Treater Electronically Signed Final Report ?? 03/10/2021 12:02 pm Narrative 03/10/2021 12:03 PM EDT OBSTETRICS REPORT ?(Signed Final 03/10/2021 12:02 pm) PATIENT INFO: ID #: ? [id number] ?: ??[birth year] (25 yrs)(F) Name: ? HARLEY FRIEDMAN ? Visit Date: 03/10/2021 11:12 am PERFORMED BY: Performed By: ? Betty Mcdermott RDMS Attending: ?Terra WELLS, Iona Cho Referred By: ?THU ANTUNEZ Location: ? [place] SERVICE(S) PROVIDED: UOBTVCER - Transvaginal ??2nd Trimester - ?88527 Cervical Length - [id number] INDICATIONS: 21 weeks gestation of ?Z3A.21 cervix [...] 03/10/2021 12:02 pm) PATIENT INFO: ID #: [id number] : [birth year] (25 yrs)(F) Name: HARLEY FRIEDMAN Visit Date: 03/10/2021 11:12 am PERFORMED BY: Performed By: Btety Mcdermott RDMS Attending: Iona Ellison MD Referred By: THU ANTUNEZ Location: [place] SERVICE(S) PROVIDED: UOBTVCER - Transvaginal 2nd Trimester - 84227 Cervical Length - [id number] INDICATIONS: 21 weeks gestation of Z3A.21 cervix [...] who have questions, please contact the health childcare provider that requested your imaging first. Iona Ellison, Treater Electronically Signed Final Report 03/10/2021 12:02 pm Thu Antunez MD IMG OB ORDERABL ES documented in this encounter Visit Diagnoses Diagnosis History of delivery, currently with history of pre-term labor Premature Other infants, unspecified (weight) History of delivery, currently with history of pre-term labor Premature Other infants, unspecified (weight) documented in this encounter Care Teams Avionics Electronics Technician Relationship Specialty Start Date End Date Tania Leos APRN [address] [place] [address] PCP - General Family Medicine 11/20/17 03/04/22 documented as of this encounter
--- OUTSIDE RECORDS SUMMARY | 2024-07-17 17:38 | XMS_ITS | Encounter Summary ---
Author Organization [facility] Address [facility] [place] [address] Care Team Providers Care Satellite Installer Name Role Phone Dafne Tania Tammy DOVE Primary Care Provider [phone] Encounter Details Date Type Department Care Team (Latest Contact Info) Description 02/19/2021 10:06 AM EDT - 02/19/2021 11:59 PM EDT Hospital [place] [address] Johan Zapata MD [facility] OBSTETRICS [place] [address] History of delivery, currently Discharge Disposition: Home [...] mouth once daily 0 11/21/2017 vitamin with vtksmycf-Gx-Ldty-FA ( VITAMIN) TabletIndications:Super vision of high risk [...] who have questions, please contact the health administrator health care facility that requested your imaging first. ?Thu Vigil, Staff Physician Electronically Signed Final Report ?? 02/19/2021 11:46 am Narrative 02/19/2021 11:47 AM EDT OBSTETRICS REPORT ?(Signed Final 02/19/2021 11:46 am) PATIENT INFO: ID #: ? [id number] ?: ??[birth year] (25 yrs)(F) Name: ? HARLEY Saucedo YOUNG ? Visit Date: 02/19/2021 11:07 am PERFORMED BY: Performed By: ? Bianca Steiner RDMS Attending: ?Musa WELLS, Thu Abdi Referred By: ?JOHAN ZAPATA Location: ? [place] SERVICE(S) PROVIDED: [facility] - Detailed Morphology - [id number] ? [id number] UOBTVCER - Transvaginal ??2nd Trimester - ?93686 Cervical Length - [id number] INDICATIONS: 19 weeks gestation of ?Z3A.19 Prior [...] Arch: ? Visualized SVC: ? Visualized Cardiac [place]: ?Visualized Diaphragm: ? Visualized 3 Vessel View: [...] 02/19/2021 11:46 am) PATIENT INFO: ID #: [id number] : [birth year] (25 yrs)(F) Name: HARLEY FRIEDMAN Visit Date: 02/19/2021 11:07 am PERFORMED BY: Performed By: Bianca Steiner RDMS Attending: Thu Vigil MD Referred By: JOHAN ZAPATA Location: [place] SERVICE(S) PROVIDED: [facility] - Detailed Morphology - [id number] UOBTVCER - Transvaginal 2nd Trimester - 99143 Cervical Length - [id number] INDICATIONS: 19 weeks gestation of Z3A.19 Prior [...] Visualized Ductal Arch: Visualized SVC: Visualized Cardiac [place]: Visualized Diaphragm: Visualized 3 Vessel View: Visualized [...] who have questions, please contact the health administrator health care facility that requested your imaging first. Thu Vigil, Staff Physician Electronically Signed Final Report 02/19/2021 11:46 am Johan Zapata MD IMG OB ORDERABLES documented in this encounter Visit Diagnoses Diagnosis History of delivery, currently with history of pre-term labor documented in this encounter Care Teams Satellite Installer Relationship Specialty Start Date End Date Tania Leos APRN [address] [place] [address] PCP - General Family Medicine 11/20/17 03/04/22 documented as of this encounter
--- OUTSIDE RECORDS SUMMARY | 2024-07-17 17:38 | XMS_ITS | Encounter Summary ---
Author Organization Counts Include [facility] Address [facility] [place] [address] Care Team Providers Care Housecalls Nurse Name Role Phone Tania Leos APRN Primary Care Provider [phone] Reason for Visit * Reason Comments Advice Only * Consultation (Routine) - Closed Specialty Diagnoses / Procedures Referred By Des saucedo Referred To Contact Obstetrics and Gynecology Diagnoses PREV PREG PPROM AT 34 WEEKS, HX ADHD, LEARNING DISABILITES, MIGRANES, PDA REPAIR Reyna Nicolas, [facility] [address] [place] [address] [place] [address] [facility] Talent Management Specialist [address] [place] [address] Referral ID Status Reason Start Date Expiration Date Visits Re quested Visits Authorized [id number] Closed 11/20/2017 11/20/2018 1 1 Encounter Details Date Type Department Care Team (Late st Contact Info) Description 11/23/2017 1:15 PM EDT Office Visit Obstetrics [place] [address] Edvin Baldwin MD [facility] OBSTET[place] [address] H/O delivery, currently Social History [...] consistent with 7w4d US who presents for [facility] consult for history of PPROM and at 34w2d. She also has a history of developmental delay and presents today with her mother. She is seen in consultation, referred by: Reyna Nicolas, [address] [place] [address] S: The patient had a post-placental Liletta [...] Medication Sig Dispense Refill ??? vitamin with cdzggyun-Mt-Hpfe-FA ( VITAMIN) Tablet Daily ??? acetaminophen (TYLENOL) [...] and PPROM with delivery who presents for [facility] consultation We discussed the recurrence risk for delivery of ~ 30%. I recommend a transvagainal cervical length ultrasound at 18-20 weeks morphology. If the cervix measures < 25mm, then a cervix cerclage may reduce the risk of yaneil- viable delivery and morbidity and mortality. I [...] evaluated, and plan formulated with Dr. Baldwin, [facility] attending physician. LINNEA BARAJAS MD PGY4 11/23/2017 CC: Reyna Nicolas[address] [place] [address] * Edvin Baldwin MD - 11/23/2017 1:15 [...] 04:54 pm) PATIENT INFO: ID #: ? [id number] ?: ??[birth year] (22 yrs) Name: ? HARLEY Saucedo YOUNG ? Visit Date: 01/12/2018 02:03 pm PERFORMED BY: Performed By: ? Siri Sanders RDMS Attending: ?Edvin Baldwin MD ??Melissa Referred By: ?MAGALY WEBSTER MD Location: ? [place] SERVICE(S) PROVIDED: ??[facility] - Detailed Morphology - [id number] ? 02546 ??UOBTV - Viability - Cervical Length -Transvaginal - ?? 32436 ??[id number] INDICATIONS: ??18 weeks gestation of ?Z3A.18 ??H/O [...] Arch: ? Visualized SVC: ? Visualized Cardiac Hayward: ?Visualized Diaphragm: ? Visualized 3 Vessel View: [...] 01/12/2018 04:54 pm) PATIENT INFO: ID #: [id number] : [birth year] (22 yrs) Name: HARLEY FRIEDMAN Visit Date: 01/12/2018 02:03 pm PERFORMED BY: Performed By: Siri Sanders RDMS Attending: Edvin Baldwin MD Referred By: MAGALY WEBSTER MD Location: [place] SERVICE(S) PROVIDED: [facility] - Detailed Morphology - [id number] UOBTV - Viability - Cervical Length -Transvaginal - 00031 [id number] INDICATIONS: 18 weeks gestation of Z3A.18 H/O [...] Visualized Ductal Arch: Visualized SVC: Visualized Cardiac Hayward: Visualized Diaphragm: Visualized 3 Vessel View: Visualized [...] labor documented in this encounter Care Teams Housecalls Nurse Relationship Specialty Start Date End Date Tania Leos, FIXED INCOME DIRECTOR [address] [place] [address] PCP - General Family Medicine 11/20/17 03/04/22 documented as of this encounter
--- OUTSIDE RECORDS SUMMARY | 2024-07-17 17:38 | XMS_ITS | Encounter Summary ---
Author Organization [facility] Address [facility] [place] [address] Care Team Providers Care Bessemer Converter Blower Name Role Phone DarriusTania bustamante Tammy DOVE Primary Care Provider [phone] Reason for Visit * Reason Comments Follow-up Encounter Details Date Type Department Care Team (Latest Contact Info) Description 01/12/2018 3:00 PM EDT Procedure visit Obstetrics [place] [address] Edvin Baldwin MD [facility] DR OBSTETRICS [place] [address] Choroid plexus cyst of fetus affecting care [...] old female at 18w2d weeks gestation with NETWORK SECURITY ADMINISTRATOR and PRUV. PRUV may be associated with [...] T ?(Age): 1995(22y) ? Med Rec#: ? [id number] ?Sex: ?F ? Site Loc: ? [facility] ?Ht / Wt: ??(cm)/ (kg) ? Pt. Loc: ?Echo Lab ? Study Date: ?? 02/28/2018 ?Pt. Type: Study Quality: ? Referring: Cameron Baldwin Referring: Edvin BALDWIN REBECCA Reading: Tarsha Tejada ([id number]) Automotive Worker Foreman: Pippa Franklin Diagnosis: *Abnormal ultrasonic finding on [...] Normal heart rate (153 bpm). Normal mechanical KS interval (116 ms). No arrhythmia detected. 6. [...] a patent foramen ovale (PFO). ?There is krivz-pw-prez shunting across the patent foramen ovale with [...] is a patent ductus arteriosus. ?There is qyllq-wq-wrhf shunting across the patent ductus arteriosus with [...] 02/28/2018 12:02:28 Images reviewed and interpretation verified [facility] Cardiac Ultrasound Laboratory Procedure Note Tarsha Tejada MD - 02/28/2018 Procedure: Pediatric Echocardiogram Patient: ELDER DAS(Age): 1995(22y) Med Rec#: [id number] Sex: F Site Loc: [facility] Ht / Wt: (cm)/ (kg) Pt. Loc: Echo Lab Study Date: 02/28/2018 Pt. Type: Study Quality: Referring: Cameron Baldwin Referring: Edvin BALDWIN REBECCA Reading: Tarsha Tejada ([id number]) Automotive Worker Foreman: Pippa Franklin Diagnosis: *Abnormal ultrasonic finding on [...] Normal heart rate (153 bpm). Normal mechanical KS interval (116 ms). No arrhythmia detected. 6. [...] a patent foramen ovale (PFO). There is cbhyy-ku-qwms shunting across the patent foramen ovale with [...] is a patent ductus arteriosus. There is zyecn-qz-skmc shunting across the patent ductus arteriosus with [...] 02/28/2018 12:02:28 Images reviewed and interpretation verified [facility] Cardiac Ultrasound Laboratory E Melissa Baldwin MD ECHO ORDERABLES * Miscellaneous Lab request (01/12/2018 4:07 PM EDT) Label Request received in lab. [facility] Blood specimen (specimen) 01/12/2018 4:07 PM EDT 01/12/2018 7:37 PM EDT Narrative Resulting Agency Comment Spec In Lab E Melissa Baldwin MD LAB SEND OUT [facility]IR[facility] [place] [address] documented in this encounter Visit Diagnoses Diagnosis [...] described documented in this encounter Care Teams Bessemer Converter Blower Relationship Specialty Start Date End Date Tania Leos, BUDGET ENGINEER [address] [place] [address] PCP - General Family Medicine 11/20/17 03/04/22 documented as of this encounter
--- OUTSIDE RECORDS SUMMARY | 2024-07-17 17:38 | XMS_ITS | Encounter Summary ---
Author Organization [facility] Address [facility] [place] [address] Care Team Providers Care Auto Headlight Mechanic Name Role Phone Dafne Tania Tammy DOVE Primary Care Provider [phone] Reason for Visit * Auth/Cert Specialty Diagnoses / Procedures Referred By Contac t Referred To Contact Diagnoses labor IUP @33 Procedures LABOR Referral ID Status Reason Start Date Expiration Date Visits Re quested Visits Authorized [id number] 1 1 Encounter Details Date Type Department Care Team (Late st Contact Info) Description 05/06/2018 1:54 PM EST [place] [phone] Viky Chavira MD [facility] [place] [address] Amilcar Mena MD [facility] [place] [address] Anesthesia Record Procedure Summary Procedure Name Responsible [...] Amilcar Mena - 05/07/2018 9:44 AM EST [facility] Department of Anesthesiology Post-procedure Note Patient: Aruna [...] End time: 05/06/2018 1:52 PM Patient Location: [facility] Patient Prep Position: Sitting Prep: Chlorhexidine, Patient [...] 1.5% w/Epinephrine 1:2000,000 3mL Events/Notes Events: None Resident/AUTOMOTIVE WINDOW TINTER: Zack Lopez MD Second Resident/AUTOMOTIVE WINDOW TINTER: Fellow: Attending Physician: Ashish Bey MD ~~~~~~~~~~~~~~~~~~~~~~~~~~~~~~~~~~~~~~~~~~~~~~~~~~~~~~~~~~~~ [...] EST documented in this encounter Results * [id number] (05/06/2018 1:55 PM EST) Narrative Ashish Bey [...] End time: 05/06/2018 1:52 PM Patient Location: [facility] Patient Prep Position: Sitting Prep: Chlorhexidine, Patient [...] 1.5% w/Epinephrine 1:2000,000 3mL Events/Notes Events: ??None Resident/AUTOMOTIVE WINDOW TINTER: ?Zack Lopez MD Second Resident/AUTOMOTIVE WINDOW TINTER: Fellow: ? Attending Physician: ? Ashish Bey MD ~~~~~~~~~~~~~~~~~~~~~~~~~~~~~~~~~~~~~~~~~~~~~~~~~~~~~~~~~~~~ Ashish Bey MD REGULATORY MANAGER [facility] documented in this encounter Visit Diagnoses [...] mLs documented in this encounter Care Teams Auto Headlight Mechanic Relationship Specialty Start Date End Date Tania Leos APRN [address] [place] [address] PCP - General Family Medicine 11/20/17 03/04/22 documented as of this encounter
--- OUTSIDE RECORDS SUMMARY | 2024-07-17 17:38 | XMS_ITS | Encounter Summary ---
[place] [address] Care Team Providers Care Carpenter Form Name Role Phone Darriusdianna Tania Tammy DOVE Primary Care Provider Encounter Details Date Type Department Care Team (Latest Contact Info) Description 01/12/2018 4:00 PM EDT Laboratory Appointment Lab [address]L [place] [address] Choroid plexus cyst of fetus affecting care [...] PM EDT) Label Request received in lab. [facility] Blood specimen (specimen) 01/12/2018 4:07 PM EDT 01/12/2018 7:37 PM EDT Narrative Resulting Agency Comment Spec In Lab E Melissa Baldwin MD LAB SEND OUT MIR[facility] [address] documented in this encounter Visit Diagnoses Diagnosis Choroid plexus cyst of fetus affecting care of mother, antepartum, single or unspecified fetus documented in this encounter Care Teams Carpenter Form Relationship Specialty Start Date End Date Tania Leos APRN [address] [place] [address] PCP - General Family Medicine 11/20/17 03/04/22 documented as of this encounter
--- OUTSIDE RECORDS SUMMARY | 2024-07-17 17:38 | XMS_ITS | Encounter Summary ---
Author Organization [facility] Address [facility] [place] [address] Care Team Providers Care Engine Manager Name Role Phone DarriusTania bustamante Tammy DOVE Primary Care Provider [phone] Reason for Visit * Reason Comments Ultrasound Encounter Details Date Type Department Care Team (Late st Contact Info) Description 03/18/2021 12:15 PM EDT Routine Obstetrics [place] [address] Jesus Callahan MD [facility] DR OBSTETRICS [place] [address] GA: 22w6d Social History Tobacco Use Types [...] trimester documented in this encounter Care Teams Engine Manager Relationship Specialty Start Date End Date Tania Leos APRN [address] [place] [address] PCP - General Family Medicine 11/20/17 03/04/22 documented as of this encounter
--- OUTSIDE RECORDS SUMMARY | 2024-07-17 17:38 | XMS_ITS | Encounter Summary ---
Author Organization [facility] Address [facility] [place] [address] Care Team Providers Care 3D Artist Name Role Phone DarriusTania bustamante Tammy DOVE Primary Care Provider [phone] Reason for Visit * Reason Comments Ultrasound Encounter Details Date Type Department Care Team (Late st Contact Info) Description 03/10/2021 1:00 PM EDT Routine Obstetrics [place] [address] Edvin Baldwin MD [facility] DR OBSTETRICS [place] [address] GA: 21w5d Social History Tobacco Use Types [...] who have questions, please contact the health tire care manager that requested your imaging first. ? Cameron Baldwin, Staff Physician Electronically Signed Final Report ?? 03/18/2021 02:31 pm Narrative 03/18/2021 2:32 PM EDT OBSTETRICS REPORT ?(Signed Final 03/18/2021 02:31 pm) PATIENT INFO: ID #: ? [id number] ?: ??[birth year] (25 yrs)(F) Name: ? HARLEY Saucedo YOUNG ? Visit Date: 03/18/2021 11:54 am PERFORMED BY: Performed By: ? Maral SWENSON, ??Jackie Attending: ?Cameron Baldwin MD Referred By: ?MARI KIRILL Location: ? [place] SERVICE(S) PROVIDED: UOBTVCER - Transvaginal ??2nd Trimester - ?24316 Cervical Length - [id number] INDICATIONS: 22 weeks gestation of ?Z3A.22 h/o [...] 03/18/2021 02:31 pm) PATIENT INFO: ID #: [id number] : [birth year] (25 yrs)(F) Name: HARLEY FRIEDMAN Visit Date: 03/18/2021 11:54 am PERFORMED BY: Performed By: Jackie Alicia RDMS Attending: Cameron Baldwin MD Referred By: MARI ROY Location: [place] SERVICE(S) PROVIDED: UOBTVCER - Transvaginal 2nd Trimester - 52057 Cervical Length - [id number] INDICATIONS: 22 weeks gestation of Z3A.22 h/o [...] who have questions, please contact the health tire care manager that requested your imaging first. Cameron Baldwin, Staff Physician Electronically Signed Final Report 03/18/2021 02:31 pm E Melissa Baldwin MD [facility] OB ORDERAB LES documented in this encounter Visit Diagnoses Diagnosis History of delivery, currently with history of pre-term labor History of delivery, currently with history of pre-term labor documented in this encounter Care Teams 3D Artist Relationship Specialty Start Date End Date Tania Leos APRN [address] [place] [address] PCP - General Family Medicine 11/20/17 03/04/22 documented as of this encounter
--- OUTSIDE RECORDS SUMMARY | 2024-07-17 17:38 | XMS_ITS | Encounter Summary ---
Author Organization [facility] Address [facility] [place] [address] Care Team Providers Care Communications Billing Analyst Name Role Phone Tania Leso APRN Primary Care Provider [phone] Encounter Details Date Type Department Care Team [...] pump at the bedside and one at [facility]. The was going to give mom [...] on filedocumented in this encounter Care Teams Communications Billing Analyst Relationship Specialty Start Date End Date Tania Leos APRN [address] [place] [address] PCP - General Family Medicine 11/20/17 03/04/22 documented as of this encounter
--- OUTSIDE RECORDS SUMMARY | 2024-07-17 17:38 | XMS_ITS | Encounter Summary ---
Author Organization [facility] [place] [address] Care Team Providers Care Microsoft Dynamics Ax Consultant Name Role Phone Unknown Primary Care Provider Unavailabl e Reason for Visit * Auth/Cert Specialty Diagnoses / Procedures Referred By Des t Referred To Contact Diagnoses premature rupture of membranes (PPROM) with unknown onset of labor 33 AND 5 WKS PROM Procedures EMERGENCY Referral ID Status Reason Start Date Expiration Date Visits Re quested Visits Authorized [id number] 1 1 Encounter Details Date Type Department Care Team (Late st Contact Info) Description 07/20/2016 12:44 AM EST Anesthesia [place] [address] Rob Brown MD Toth, Adam R, [facility] [place] [address] Anesthesia Record Procedure Summary Procedure Name Responsible [...] bupivicaine w/2mcg Fentanyl bolus from bag give. Resident/PRIVATE INVESTIGATOR SURVEILLANCE: JOAQUINA WEINSTEIN Second Resident/PRIVATE INVESTIGATOR SURVEILLANCE: KEVIN BALL Fellow: Attending Physician: GARETH SCHMID [...] chart. Rob Brown, DO Anesthesiology, CA-1 Pager [phone] Region - Other Informed Consent: Anesthetic plan [...] bupivicaine w/2mcg Fentanyl bolus from bag give. Resident/PRIVATE INVESTIGATOR SURVEILLANCE: ? JOAQUINA WEINSTEIN Second Resident/PRIVATE INVESTIGATOR SURVEILLANCE: ??KEVIN BALL Fellow: ? Attending Physician: ? GARETH SCHMID ~~~~~~~~~~~~~~~~~~~~~~~~~~~~~~~~~~~~~~~~~~~~~~~~~~~~~~~~~~~~ Gareth Schmid MD THERMOMETER PRODUCTION WORKER [facility] documented in this encounter Visit Diagnoses Not on filedocumented in this encounter Care Teams Microsoft Dynamics Ax Consultant Relationship Specialty Start Date End Date Unknown None PCP - General 06/18/16 11/19/17 documented as of this encounter
--- OUTSIDE RECORDS SUMMARY | 2024-07-17 17:39 | XMS_ITS | Clinical Summary ---
Author Organization [facility] Address [address] [place] [address] Care Team Providers Care Occupational Ther Name Role Phone Unknown, Provider Primary Care [...] C Antibody Negative Negative 02/28/2023 10:16 EDT [facility] Blood VENOUS BLOOD / Unknown 02/27/2023 10:50 EDT 02/27/2023 21:57 EDT us Provider Outr Resulting Lab CHEMISTRY & BLOOD GA S ORDERABLES Final Result [facility] [address] [place] [address] from Last 3 Months or Most Recently Relevant to Health Maintenance Insurance MEDICAID [place] Care Teams Occupational Ther Relationship Specialty Start Date End Date Unknown, Provider, PCP - General 05/16/17
--- OUTSIDE RECORDS SUMMARY | 2024-07-17 17:39 | XMS_ITS | Encounter Summary ---
Author Organization [facility] Address [address] [place] [address] Care Team Providers Care Motion Picture Actor Name Role Phone Unknown, Provider Primary Care Provider Unava ilable Encounter Details Date Type Department Care Team (Late st Contact Info) Description 09/21/2023 Lab Requisition [facility] Pathology & Laboratory Medicine - [facility] [address] [place] [address] Kristopher Perez, [facility] [address] [place] [place] [address] Encounter for other general examination Social History [...] PCR Positive( A) Negative 09/26/2023 19:04 EDT [facility] Comment:E6 OR E7 mRNA from o ne or more types of HPV types 16,18,31,33,35,39,45,51,52,56,58,59,66, and 68 is detected by department editor mediated amplification. High and intermediate risk HPV types are associated with most squamous intraepithelial lesions and cervical cancers. Pap Test CERVIX UTERI STRUCTURE / Unknown 09/19/2023 14:00 EDT 09/26/2023 9:45 EDT Kristopher Harrisontate Dayanna JOSEPH MICROBIOLOGY - GENERAL OR DERABLES Final Result [facility] [address] [place] [phone] * PAP TEST (09/19/2023 14:00 EDT) Specimens A. Cervix and/or Endocervix , ThinPrep Imaging System with Manual Evaluation 09/26/2023 19:04 T [facility] Specimen Adequacy Satisfactory for Evaluation [...] ,45,51,52,56,58,5 9,66, and 68 is detected by department editor mediated amplification. High and intermediate risk HPV types are associated with most squamous intraepithelial lesions and cervical cancers. Testing was performed on specimen [id number] and was resulted on 09/26/2023 1904 EDT by CHRISTINA, LAB INSTRUMENT RESULTS IN 09/26/2023 19:04 T [facility] Performing Lab [facility] 09/26/2023 19:04 EDT [facility] Scanned Images 09/26/2023 19:04 EDT [facility] Pap Test CERVIX UTERI STRUCTURE / Unknown 09/19/2023 14:00 EDT 09/21/2023 12:03 EDT us Kristopher Alan DNP PATHOLOGY ORDERABLES Michela lopez Result [facility] [address] [place] [address] documented in this encounter Visit Diagnoses Diagnosis Encounter for other general examination documented in this encounter Care Teams Motion Picture Actor Relationship Specialty Start Date End Date Unknown, Provider, PCP - General 05/16/17 documented as of this encounter
--- OUTSIDE RECORDS SUMMARY | 2024-07-17 17:39 | XMS_ITS | Encounter Summary ---
Author Organization [facility] Address [address] [place] [address] Care Team Providers Care Junior Financial Analyst Name Role Phone Unknown, Provider Primary Care Provider Unava ilable Encounter Details Date Type Department Care Team (Late st Contact Info) Description 02/27/2023 Lab Requisition [facility] Pathology & Laboratory Medicine - [address] [address] Outr Resulting Lab, Provider Social History Tobacco [...] gonorrhoeae Result Negative Negative 03/01/2023 15:48 EDT [facility] Chlamydia trachomatis Result Negative Negative 03/01/2023 15:48 EDT [facility] Swab VAGINAL STRUCTURE / Unknown 02/27/2023 10:50 EDT 02/27/2023 22:37 EDT us Provider Outr Resulting Lab MICROBIOLOGY - GENER AL ORDERABLES Final Result [facility] [address] [place] [address] documented in this encounter Visit Diagnoses Not on filedocumented in this encounter Care Teams Junior Financial Analyst Relationship Specialty Start Date End Date Unknown, Provider, PCP - General 05/16/17 documented as of this encounter
--- OUTSIDE RECORDS SUMMARY | 2024-07-17 17:39 | XMS_ITS | Encounter Summary ---
Author Organization [facility] Address [facility] [place] [address] Care Team Providers Care Intervention Analyst Name Role Phone Timmy Dailey MD, Alec Primary Care Provider [phone] Encounter Details Date Type Department Care Team (Latest Contact Info) Description 03/30/2016 1:00 PM EDT - 03/30/2016 11:59 PM EDT Hospital [place] [address] Iona Ellison MD [facility] [address] OBST[place] [address] Supervision of high risk in second trimester [...] Refills Start Date End Date vitamin with ioggahyo-Bt-Bmet-FA ( VITAMIN) TabletIndications:Super vision of high risk [...] 02:22 pm) PATIENT INFO: ID #: ? [id number] ?: ??[birth year] (20 yrs) Name: ? HARLEY Saucedo YOUNG ? Visit Date: 03/30/2016 01:16 pm PERFORMED BY: Performed By: ? Rissa Gutierrez RDMS Attending: ?Denny WELLS, E ??Melissa Referred By: ?IONA ELLISON MD Location: ? [place] SERVICE(S) PROVIDED: ??[facility] - Detailed Morphology - Genetics - [id number] ?[id number] INDICATIONS: ??morph; E - Coordinates with gestational [...] Outflow Tract: ?Visualized Aortic Arch: ?Visualized Cardiac Pledger: ? Visualized 3 Vessel View: ?Visualized Diaphragm: [...] 03/30/2016 02:22 pm) PATIENT INFO: ID #: [id number] : [birth year] (20 yrs) Name: HARLEY FRIEDMAN Visit Date: 03/30/2016 01:16 pm PERFORMED BY: Performed By: Rissa Gutierrez RDMS Attending: Edvin Baldwin MD Referred By: IONA ELLISON MD Location: [place] SERVICE(S) PROVIDED: [facility] - Detailed Morphology - Genetics - [id number] INDICATIONS: morph; E - Coordinates with gestational [...] Outflow Tract: Visualized Aortic Arch: Visualized Cardiac Pledger: Visualized 3 Vessel View: Visualized Diaphragm: Visualized [...] high-risk documented in this encounter Care Teams Intervention Analyst Relationship Specialty Start Date End [place] [address] PCP - General 05/04/10 06/17/16 documented as of this encounter
--- OUTSIDE RECORDS SUMMARY | 2024-07-17 17:39 | XMS_ITS | Encounter Summary ---
Author Organization [facility] Address [facility] [place] [address] Care Team Providers Care Mental Health Consultant Name Role Phone Timmy Dailey MD, Alec Primary Care Provider [phone] Reason for Visit * Reason Comments Ultrasound * Consultation (Routine) - Closed Specialty Diagnoses / Procedures Referred By Des leblanc Referred To Contact Maternal and Medicine / Obstetrics and Gynecology Diagnoses MORPH, ADHD, DEPRESSION, MEDICATIONS Procedures MORPH, ADHD, DEPRESSION, MEDICATIONS Isatu Porras[address] [place] [address] [facility] Web Portal Developer [address] [place] [address] Referral ID Status Reason Start Date Expiration Date Visits Re quested Visits Authorized [id number] Closed 02/24/2016 02/23/2017 1 1 Encounter Details Date Type Department Care Team (Latest Contact Info) Description 03/30/2016 2:00 PM EDT Procedure visit Obstetrics [place] [address] Edvin Baldwin MD [facility] OBSTET[place] [address] Supervision of high risk in [...] in this encounter Progress Notes * Edvin Balwdin MD - 03/30/2016 2:00 PM EDT Diagnosis/Maternal [...] Medication Sig Dispense Refill ??? vitamin with dxafvqdd-Hb-Wqql-FA ( VITAMIN) Tablet Daily ??? ondansetron (ZOFRAN-ODT) [...] due to position; I recommend return to [facility] in 4 weeks for reevaluation, and have [...] this one, has been organized at the [facility]. Contact the registry at [email or web address] It would be prudent to consider [...] Edvin BALDWIN MD 03/30/2016 Cc: Isatu Porras, [facility] [address] [place] [address] [place] [address] , with copy of ultrasound report documented [...] 09:00 am) PATIENT INFO: ID #: ? [id number] ?: ??[birth year] (20 yrs) Name: ? HARLEY Jeff T YOUNG ? Visit Date: 04/26/2016 08:30 am PERFORMED BY: Performed By: ? Padmini SWENSON, ??Mary Attending: ?Edvin Baldwin MD ??Melissa Referred By: ?ISATU PORRAS CNM Location: ? [place] SERVICE(S) PROVIDED: ??UJIMBO - Efw - Growth - [place] - [id number] ? [id number] INDICATIONS: ??f/u growth; anatomy; reevaluation Umb ??cord/straight; [...] 1d ?? Det. By: ??Clinical CHRISTIANO ? CHRSITIANO: ?? 08/29/16 -------- ANATOMY: -------- Cranium: ?Visualized [...] 04/26/2016 09:00 am) PATIENT INFO: ID #: [id number] : [birth year] (20 yrs) Name: HARLEY FRIEDMAN Visit Date: 04/26/2016 08:30 am PERFORMED BY: Performed By: Mary Washington RDMS Attending: Edvin Baldwin MD Referred By: ISATU PORRAS [facility] Location: [place] SERVICE(S) PROVIDED: UOBFOL - Efw - Growth - [place] - [id number] INDICATIONS: f/u growth; anatomy; reevaluation Umb cord/straight; [...] 04/26/2016 09:00 am E Melissa Baldwin MD IMG US OB ORDERAB LES documented in this encounter Visit Diagnoses Diagnosis Supervision of high risk in second trimester Unspecified high-risk Medication exposure during first trimester of Supervision of other high-risk Supervision of high risk in second trimester Unspecified high-risk Medication exposure during first trimester of Supervision of other high-risk documented in this encounter Care Teams Mental Health Consultant Relationship Specialty Start Date End Date Alec Warner MD [address] [place] [address] [place] [address] PCP - General 05/04/10 06/17/16 documented as of this encounter
--- OUTSIDE RECORDS SUMMARY | 2024-07-17 17:39 | XMS_ITS | Encounter Summary ---
[place] [address] Care Team Providers Care Police Captain Name Role Phone Timmy Dailey MD, Jimmy Primary Care Provider [phone] Reason for Visit * Reason Comments Major Depressive Disorder Encounter Details Date Type Department Care Team (Latest Contact Info) Description 02/13/2014 1:00 PM EDT Office Visit Psychiatry [place] [address] Yenifer Nance MD Depression (Primary Dx); Major [...] 02/13/2014 1:5 0 PM EDT Growth Chart: [facility] (Girls, 2- 20 Years) documented in this [...] methylphenidate 10mg, fluoxetine 20mg, cyproheptadine 4mg ([place]?). shelter therapist. Father has dropped off in level [...] during today's visit. DIAGNOSTIC INTERVIEW CPT CODE 44962/27228; ZENADIA 5100 Patient Name: Aruna Friedman : 1995 Encounter Date: 02/13/2014 Time Spent: 95 mins Location: [facility] at Primary Care Provider: JIMMY LY MD Referred by: Patient's therapist Information Source: Child and parent interviews and rating scales, chart review, interview with mother and child separately. Guardian(s): Daniela Friedman (mother) Identifying Information/Chief Complaint: Aruna Friedman is a 18 y.o. 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 The patient's chief [...] thoughts and there are no firearms in theregional rehabilitation hospitale. Aruna endorses her symptoms have gotten gradually worse over the years, especially her anger. She began therapy about this time and has continued with the same therapist, Vanessa Dunlap [facility]. Aruna finds therapy helpful, but is [...] arguments with her cousins when they visit. Aruna endorses the following symptoms: Mood: Dysphoric mood [...] Parent A Patient CIS Impairment: >14 20 [place] Inattention >5 8 Hyperactivity >5 0 ODD [...] changed Past counseling/therapy: currently seeing Vanessa Dunlap [facility] for several years Substance Use History/Treatment: [...] card with my contact information and the [facility] 24 hr crisis line was also provided [...] Metabolic Panel (non-fasting) (02/13/2014 2:49 PM EDT) [facility] Glucose 88 60 - 199 mg/dL CERNER MILLENNIUM Comment:Diabetes: >=200 mg/d L plus symptoms Blood Urea Nitrogen 16 10 - 20 mg/dL CERNER MILLENNIUM Creatinine 0.68 0.20 - 0.70 mg/dL CERNER MILLENNIUM Comment: Please note that the pediatric reference intervals supplied above were not validated at [facility]. Results from pediatric patients should be interpreted [...] the following links into your internet browser. [email or web address] Blood specimen (specimen) 02/13/2014 2:49 PM EDT 02/13/2014 3:06 PM EDT Narrative Resulting Agency Comment Spec In Lab Emily Livingston MD CHEMISTRY ORDERABLES Performing Organization Address [facility] de Phone Number [facility] [employer]UM * TSH (02/13/2014 2:49 PM EDT) Thyroid Stimulating Hormone 1.12 0.27 - 4.20 mcIU/mL CERNER MILLENNIUM Blood specimen (specimen) 02/13/2014 2:49 PM EDT 02/13/2014 3:06 PM EDT Narrative Resulting Agency Comment Spec In Lab Emily Livingston MD CHEMISTRY ORDERABLES Performing Organization Address [facility] Co de Phone Number CERMENDEZ [employer] SystemsENNIUM * Hemogram (02/13/2014 2:49 PM EDT) [facility] [...] hyperactivity documented in this encounter Care Teams Police Captain Relationship Specialty Start Date End Date [place] [address] PCP - General 05/04/10 06/17/16 documented as of this encounter
--- OUTSIDE RECORDS SUMMARY | 2024-07-17 17:39 | XMS_ITS | Encounter Summary ---
Author Organization [facility] Address [address] [place] [address] Care Team Providers Care Spacer Type Bar And Segment Name Role Phone Unknown, Provider Primary Care Provider Unava ilable Encounter Details Date Type Department Care Team (Late st Contact Info) Description 12/03/2019 Lab Requisition [facility] Pathology & Laboratory Medicine - [facility] [address] [place] [address] Siri Sanz, [address] [place] [address] Encounter for other general examination [...] System with Manual Evaluation 12/11/2019 13:[address] [facility] Specimen Adequacy Satisfactory for Evaluation - transformation zone component present 12/11/2019 13:[address] [facility] General Categorization Negative for intraepithelial lesion or malignancy 12/11/2019 13:[address] [facility] Descriptive Diagnosis Shift in jakcie present suggestive of bacterial vaginosis. 12/11/2019 13:[address] [facility] Attestation . 12/11/2019 13:[address] [facility] at 1310 Clinical History NONE 12/11/19 13:[address] [facility] Scanned Images 12/11/2019 13:[address] [facility] Papanicolaou smear specimen (specimen) CERVIX UTERI STRUCTURE / Unknown 12/02/2019 11:00 EDT 12/03/2019 8:24 EDT us Siri Sanz [facility] PATHOLOGY ORDERABLES Final R esult [facility] [address] [place] [address] documented in this encounter Visit Diagnoses Diagnosis Encounter for other general examination documented in this encounter Care Teams Spacer Type Bar And Segment Relationship Specialty Start Date End Date Unknown, Provider, PCP - General 05/16/17 documented as of this encounter
--- OUTSIDE RECORDS SUMMARY | 2024-07-17 17:39 | XMS_ITS | Encounter Summary ---
Author Organization [facility] Address [address] [place] [address] Care Team Providers Care Chocolate Finisher Operator Name Role Phone Unknown, Provider Primary Care Provider Unava ilable Encounter Details Date Type Department Care Team (Late st Contact Info) Description 12/22/2020 Lab Requisition [facility] Pathology & Laboratory Medicine - [address] [address] Outr Resulting Lab, Provider Social History Tobacco [...] gonorrhoeae Result Negative Negative 12/23/2020 15:20 EDT [facility] Chlamydia trachomatis Result Negative Negative 12/23/2020 15:20 EDT [facility] Swab ENTIRE WALL OF CERVIX / Unknown 12/22/2020 14:15 EDT 12/22/2020 22:07 EDT us Provider Outr Resulting Lab MICROBIOLOGY - GENER AL ORDERABLES Final Result [facility] [address] [place] [address] documented in this encounter Visit Diagnoses Not on filedocumented in this encounter Care Teams Chocolate Finisher Operator Relationship Specialty Start Date End Date Unknown, Provider, PCP - General 05/16/17 documented as of this encounter
--- OUTSIDE RECORDS SUMMARY | 2024-07-17 17:39 | XMS_ITS | Encounter Summary ---
Author Organization [facility] Address [facility] [place] [address] Care Team Providers Care Vice President Quality Improvement Name Role Phone Timmy Dailey MD, Alec Primary Care Provider [phone] Encounter Details Date Type Department Care Team (Late st Contact Info) Description 02/08/2016 Orders Only Obstetrics [place] [address] Iona Ellison MD [facility] DR OBSTETRICS [place] [address] Supervision of high risk in second trimester [...] 02:22 pm) PATIENT INFO: ID #: ? [id number] ?: ??[birth year] (20 yrs) Name: ? HARLEY FRIEDMAN ? Visit Date: 03/30/2016 01:16 pm PERFORMED BY: Performed By: ? Rissa Gutierrez RDMS Attending: ?Denny WELLS, Edvin ??Melissa Referred By: ?IONA ELLISON MD Location: ? [place] SERVICE(S) PROVIDED: ??[facility] - Detailed Morphology - Genetics - [id number] ?[id number] INDICATIONS: ??morph; E - Coordinates with gestational [...] Outflow Tract: ?Visualized Aortic Arch: ?Visualized Cardiac Sadler: ? Visualized 3 Vessel View: ?Visualized Diaphragm: [...] 03/30/2016 02:22 pm) PATIENT INFO: ID #: [id number] : [birth year] (20 yrs) Name: HARLEY FRIEDMAN Visit Date: 03/30/2016 01:16 pm PERFORMED BY: Performed By: Rissa Gutierrez RDMS Attending: Edvin Baldwin MD Referred By: IONA ELLISON MD Location: [place] SERVICE(S) PROVIDED: [facility] - Detailed Morphology - Genetics - [id number] INDICATIONS: morph; E - Coordinates with gestational [...] Outflow Tract: Visualized Aortic Arch: Visualized Cardiac Sadler: Visualized 3 Vessel View: Visualized Diaphragm: Visualized [...] high-risk documented in this encounter Care Teams Vice President Quality Improvement Relationship Specialty Start Date End Date Alec Warner MD [address] [place] [address] [place] [address] PCP - General 05/04/10 06/17/16 documented as of this encounter
--- OUTSIDE RECORDS SUMMARY | 2024-07-17 17:39 | XMS_ITS | Encounter Summary ---
Author Organization [facility] [place] [address] Care Team Providers Care String Studies Director Name Role Phone Timmy Dailey MD, Alec Primary Care Provider [phone] Reason for Visit * Reason Comments Major Depressive Disorder Encounter Details Date Type Department Care Team (Latest Contact Info) Description 05/15/2014 3:15 PM EST Office Visit Psychiatry [place] [address] Yenifer Nance MD Major depressive disorder, recurrent [...] 05/15/2014 3:4 5 PM EST Growth Chart: [facility] (Girls, 2- 20 Years) documented in this [...] 10mg, fluoxetine 30mg, cyproheptadine 4mg (for [place]). 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 She denies any change in her [...] she greatly enjoys and feels that the assistant basketball coach does his job well and has [...] headaches Continues in counseling with Vanessa Dunlap [facility], who she has seen for several [...] changed Past counseling/therapy: currently seeing Vanessa Dunlap [facility] for several years Substance Use History/Treatment: [...] stressors): Currently lives with her mother in [place], [place] and is a senior at [employer]. Jeffery is no longer living [...] %*) * Growth percentiles are based on [facility] 2-20 Years data. Vitals were reviewed Musculoskeletal [...] hyperactivity documented in this encounter Care Teams String Studies Director Relationship Specialty Start Date End Date Alec Warner MD [address] [place] [address] [address] [facility] [address] PCP - General 05/04/10 06/17/16 documented as of this encounter
--- OUTSIDE RECORDS SUMMARY | 2024-07-17 17:39 | XMS_ITS | Encounter Summary ---
Author Organization [facility] Address [address] [place] [address] Care Team Providers Care Imaging Technician Name Role Phone Unknown, Provider Primary Care Provider Unadelonte ilable Encounter Details Date Type Department Care Team (Late st Contact Info) Description 12/22/2020 Lab Requisition [facility] Pathology & Laboratory Medicine - [facility] [address] [place] [address] Outr Resulting Lab, Provider Social History Tobacco [...] 4th Generation Negative Negative 12/23/2020 10:12 EDT [facility] Comment: If acute HIV-1 infection is suspected in a high risk ??patient, submit plasma specimen for HIV-1 RNA quantitation test. Fourth Generation assay performed on the Siemens SaySwapaur. Blood VENOUS BLOOD / Unknown 12/22/2020 14:55 EDT 12/22/2020 21:01 EDT us Provider Outr Resulting Lab IMMUNOLOGY AND SEROL OGY ORDERABLES Final Result Performing Organization Address City/State/[facility] Co de Phone Number [facility] [address] [place] [address] documented in this encounter Visit Diagnoses Not on filedocumented in this encounter Care Teams Imaging Technician Relationship Specialty Start Date End Date Unknown, Provider, PCP - General 05/16/17 documented as of this encounter
--- OUTSIDE RECORDS SUMMARY | 2024-07-17 17:39 | XMS_ITS | Encounter Summary ---
Author Organization [facility] Address [facility] [place] [address] Care Team Providers Care Contract Consultant Name Role Phone Timmy Dailey MD, Alec Primary Care Provider [phone] Encounter Details Date Type Department Care Team (Latest Contact Info) Description 02/13/2014 2:42 PM EDT - 02/13/2014 11:59 PM EDT Hospital [place] [address] Yenifer Nance MD Smiga, Emily Noland MD [...] Metabolic Panel (non-fasting) (02/13/2014 2:49 PM EDT) [facility] Glucose 88 60 - 199 mg/dL CERNER MILLENNIUM Comment:Diabetes: >=200 mg/d L plus symptoms Blood Urea Nitrogen 16 10 - 20 mg/dL CERNER MILLENNIUM Creatinine 0.68 0.20 - 0.70 mg/dL CERNER MILLENNIUM Comment: Please note that the pediatric reference intervals supplied above were not validated at [facility]. Results from pediatric patients should be interpreted [...] the following links into your internet browser. [email or web address] [email or web address] Blood specimen (specimen) 02/13/2014 2:49 PM EDT 02/13/2014 3:06 PM EDT Narrative Resulting Agency Comment Spec In Lab Emily Livingston MD CHEMISTRY ORDERABLES Performing Organization Address [facility] Co de Phone Number CERNER MILLENNIUM * TSH (02/13/2014 2:49 PM EDT) Thyroid Stimulating Hormone 1.12 0.27 - 4.20 mcIU/mL CERNER MILLENNIUM Blood specimen (specimen) 02/13/2014 2:49 PM EDT 02/13/2014 3:06 PM EDT Narrative Resulting Agency Comment Spec In Lab Emily Livingston MD CHEMISTRY ORDERABLES Performing Organization Address [facility] Co de Phone Number CERNER MILLENNIUM [...] variation 13.1 10.9 - 14.4 % [facility] Mean Platelet Volume 9.9 9.0 - 12.0 fL [facility] Blood specimen (specimen) 02/13/2014 2:49 PM EDT 02/13/2014 3:06 PM EDT Narrative Resulting Agency Comment Spec In Lab Emily Livingston MD HEMATOLOGY ORDERABLE S [facility] documented in this encounter Visit Diagnoses Diagnosis Depression Depressive disorder, not elsewhere classified documented in this encounter Care Teams Contract Consultant Relationship Specialty Start Date End Date Alec Warner MD [address] [place] [address] [place] [address] PCP - General 05/04/10 06/17/16 documented as of this encounter
--- OUTSIDE RECORDS SUMMARY | 2024-07-17 17:39 | XMS_ITS | Referral Summary ---
Author Organization [facility] Address [address] [place] [address] Care Team Providers Care Rosin Barrel Filler Name Role Phone Unknown, Provider MD Primary [...] C Antibody Negative Negative 02/28/2023 10:16 EDT [facility] Blood VENOUS BLOOD / Unknown 02/27/2023 10:50 EDT 02/27/2023 21:57 EDT us Provider Outr Resulting Lab CHEMISTRY & BLOOD GA S ORDERABLES Final Result [facility] [address] [place] [address] from Last 3 Months or Most Recently Relevant to Health Maintenance Insurance MEDICAID [employer] Care Teams Rosin Barrel Filler Relationship Specialty Start Date End Date Unknown, Provider, PCP - General 05/16/17
--- OUTSIDE RECORDS SUMMARY | 2024-07-17 17:39 | XMS_ITS | Encounter Summary ---
[place] [address] Care Team Providers Care Concrete Block Mason Name Role Phone Timmy Dailey MD, Alec Primary Care Provider [phone] Reason for Visit * Reason Comments Major Depressive Disorder ADHD Encounter Details Date Type Department Care Team (Latest Contact Info) Description 10/02/2014 2:30 PM EDT Office Visit Psychiatry [place] [address] Yenifer Nance MD ADHD (attention deficit hyperactivity [...] saw and evaluated the patient with the co founder and president. I reviewed the patient???s history during the [...] follow up through her PCP or her [facility]. * Yenifer Nance MD - 10/02/2014 12:22 PM EDT ESTABLISHED CHILD/ADOLESCENT PATIENT OFFICE VISIT NOTE Time Spent (minutes): 45mins Attendee(s): patient and parent, Daniela Friedman (mother) HISTORY Chief Complaint: Aruna Friedman is a 19 y.o. 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 Endorses irritability, [...] Stopped playing basketball due to knee pain [facility] at [employer] which she loves. 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 About to graduate. Might do an extra 1/2 year of schooling. This was discussed at her recent IEP meeting. 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 Her parents are her father lives nearby [...] %*) * Growth percentiles are based on [facility] 2-20 Years data. Vitals were [...] to have a medication prescriber at the [facility] where she receives therapy and case management or switching the the [facility] adult psych clinic. For now, Aruna opted [...] Follow up with PCP and transfer to [facility] if possible - The parent and [...] remission documented in this encounter Care Teams Concrete Block Mason Relationship Specialty Start Date End Date Ale[place] [address] PCP - General 05/04/10 06/17/16 documented as of this encounter
--- OUTSIDE RECORDS SUMMARY | 2024-07-17 17:39 | XMS_ITS | Encounter Summary ---
Author Organization [facility] Address [address] [place] [address] Care Team Providers Care Casino Operations Supervisor Name Role Phone Unknown, Provider Primary Care Provider Unava ilable Encounter Details Date Type Department Care Team (Late st Contact Info) Description 02/27/2023 Lab Requisition [facility] Pathology & Laboratory Medicine - [facility] [address] [place] [address] Outr Resulting Lab, Provider Social History Tobacco [...] Syphilis Serology Negative Negative 02/28/2023 10:52 EDT [facility] Blood VENOUS BLOOD / Unknown 02/27/2023 10:50 EDT 02/27/2023 21:57 EDT us Provider Outr Resulting Lab IMMUNOLOGY AND SEROL OGY ORDERABLES Final Result Performing Organization Address City/[facility]/ZIP Co de Phone Number [facility] [address] [place] [address] * HEPATITIS C AB W REFLEX TO HCV RNA BY PCR (02/27/2023 10:50 EDT) Hep C Antibody Negative Negative 02/28/2023 10:16 EDT [facility] Blood VENOUS BLOOD / Unknown 02/27/2023 10:50 EDT 02/27/2023 21:57 EDT us Provider Outr Resulting Lab CHEMISTRY & BLOOD GA S ORDERABLES Final Result Performing Organization Address [facility] Co de Phone Number [facility] [address] [place] [address] * HERPES SIMPLEX VIRUS (HSV) TYPE 1 & 2 AB, IGG (02/27/2023 10:50 EDT) Pathologist [facility] HSV Type 1 Ab, IgG Negative Negative 03/01/2023 9:27 EDT [facility] Comment: No detectable antibodies [...] Ab, IgG Negative Negative 03/01/2023 9:27 EDT [facility] Comment: No detectable antibodies [...] OGY ORDERABLES Final Result Performing Organization Address [facility] Co de Phone Number [facility] [address] [place] [address] documented in this encounter Visit Diagnoses Not on filedocumented in this encounter Care Teams Casino Operations Supervisor Relationship Specialty Start Date End Date Unknown, Provider, PCP - General 05/16/17 documented as of this encounter
--- OUTSIDE RECORDS SUMMARY | 2024-07-17 17:39 | XMS_ITS | Encounter Summary ---
Author Organization [facility] Address [address] [place] [address] Care Team Providers Care Talent Assistant Name Role Phone Unknown, Provider Primary Care Provider Unava ilable Encounter Details Date Type Department Care Team (Late st Contact Info) Description 05/15/2017 Results Only [facility] [phone] [phone] Social History Tobacco Use Types Packs/Day Years [...] ? HARLEY FRIEDMAN ? Accession #: ? [id number] : ? 1995 (Age: 22) ??F ?Collect Date: ? 05/15/2017 Location: ? [facility] ? Receive Date: ? 05/17/2017 Provider: ?SIRI SANZ INSPECTOR MATERIAL DISPOSITION Copy to: ? Specimen/Source: ?Pap Test, Cervix, [...] Report Date: ??05/26/2017 15:22 End of Report [facility] 05/15/2017 05/17/2017 us Siri Sanz INSPECTOR MATERIAL DISPOSITION PATHOLOGY ORDERABLES Final R esult [facility] [address] [place] [address] documented in this encounter Visit Diagnoses Not on filedocumented in this encounter Care Teams Talent Assistant Relationship Specialty Start Date End Date Unknown, Provider, PCP - General 05/16/17 documented as of this encounter
--- OUTSIDE RECORDS SUMMARY | 2024-07-17 17:39 | XMS_ITS | Encounter Summary ---
Author Organization [facility] Address [address] [place] [address] Care Team Providers Care Manager Program Name Role Phone Unknown, Provider Primary Care Provider Unava ilable Encounter Details Date Type Department Care Team (Late st Contact Info) Description 07/07/2021 Lab Requisition [facility] Pathology & Laboratory Medicine - [facility] [address] [place] [address] Candida Vásquez [address] [place] [address] [place] [phone] Encounter for other general examination Social History [...] management options, if applicable. 07/15/2021 10:[address] [facility] Final Diagnosis A. PLACENTA: Hernandez [...] - No significant histopathologic changes. 07/15/2021 10:21 [facility] Diagnosis Comment Diagnostic ndiaye: Maternal [...] smooth muscle. Daquan MEJIA, Myah Horner. (2020). [place] of Placental Pathology. AFIP Atlases of Tumor and non-Tumor Pathology (Series 5). [place] [employer] Pathology; [place], [place]. Adapted from Mukesh RW, Briana O, Ofelia D, Jai F, Isis V, Burak C; Society for Pediatric Pathology, Section, Amniotic Fluid Infection Nosology Committee. Amniotic infection syndrome: nosology and reproducibility of placental reaction patterns. Pediatr Dev Pathol. 2002-Mar;6(5):435-4 8. 07/15/2021 10:21 [facility] Attestation By the signature below, the attending physician certifies that they have 1) personally conducted a gross and/or microscopic examination of the described specimen(s), and/or personally interpreted the results of laboratory testing of the described specimen(s), and 2) personally rendered or confirmed the above diagnosis. 07/15/2021 10:21 [facility] at [address]21 Clinical History at 38+4, GDM, port wine fluid; suspect abruption 07/15/2021 10:21 [facility] Gross Description A. Received next [...] There are 3 coils per 10 cm. Fiberglass Grinder sections are submitted as follows: BLOCK NDIAYE A1- membrane roll and cross-section of end of cord A2- membrane roll and cross-section of cord 5 cm from insertion site A3- full thickness section of placental disc adjacent to umbilical cord insertion site A 4-A5- two full thickness sections of central 2/3 of placental disc SHREYAS TUTTLE(ASCP) 07/08/2021 15:14 07/15/2021 10:21 [facility] Performing Lab [facility] 10:21 [facility] Scanned Images 07/15/2021 10:21 [facility] Tissue PLACENTAL STRUCTURE / Unknown 07/06/2021 23:45 EST 07/07/2021 23:35 EST [facility] PATHOLOGY ORDERABLES Final Resul t [facility] [address] [place] [address] documented in this encounter Visit Diagnoses Diagnosis Encounter for other general examination documented in this encounter Care Teams Manager Program Relationship Specialty Start Date End Date Unknown, Provider, PCP - General 05/16/17 documented as of this encounter
--- OUTSIDE RECORDS SUMMARY | 2024-07-17 17:39 | XMS_ITS | Encounter Summary ---
Author Organization [facility] Address [address] [place] [address] Care Team Providers Care Pencil Sorter Name Role Phone Unknown, Provider Primary Care Provider Unava ilable Encounter Details Date Type Department Care Team (Late st Contact Info) Description 12/22/2020 Lab Requisition [facility] Pathology & Laboratory Medicine - [address] [address] Outr Resulting Lab, Provider Social History Tobacco [...] Surface Ag Negative Negative 12/23/2020 9:19 EDT [facility] Blood VENOUS BLOOD / Unknown 12/22/2020 14:55 EDT 12/22/2020 21:01 EDT us Provider Outr Resulting Lab CHEMISTRY & BLOOD GA S ORDERABLES Final Result [facility] [address] [place] [address] * HEPATITIS C AB W REFLEX TO HCV RNA BY PCR (12/22/2020 14:55 EDT) Hep C Antibody Negative Negative 12/23/2020 9:47 EDT [facility] Blood VENOUS BLOOD / Unknown 12/22/2020 14:55 EDT 12/22/2020 21:01 EDT us Provider Outr Resulting Lab CHEMISTRY & BLOOD GA S ORDERABLES Final Result [facility] [address] [place] [address] documented in this encounter Visit Diagnoses Not on filedocumented in this encounter Care Teams Pencil Sorter Relationship Specialty Start Date End Date Unknown, Provider, PCP - General 05/16/17 documented as of this encounter
--- OUTSIDE RECORDS SUMMARY | 2024-07-17 17:39 | XMS_ITS | Encounter Summary ---
Author Organization [facility] Address [address] [place] [address] Care Team Providers Care Rfp Writer Name Role Phone Unknown, Provider Primary Care Provider Unava ilable Encounter Details Date Type Department Care Team (Late st Contact Info) Description 02/27/2023 Lab Requisition [facility] Pathology & Laboratory Medicine - [facility] [address] [place] [address] Outr Resulting Lab, Provider Social History Tobacco [...] 4th Generation Negative Negative 02/28/2023 10:05 EDT [facility] Comment:If acute HIV-1 infec tion is suspected in a high risk patient, submit plasma specimen for HIV-1 RNA quantitation test. Blood VENOUS BLOOD / Unknown 02/27/2023 10:50 EDT 02/27/2023 21:57 EDT Narrative [facility] - 02/28/2023 10:05 EDT Fourth Generation assay performed on the Siemens Tutorspreeaur XPT. us Provider Outr Resulting Lab IMMUNOLOGY AND SEROL OGY ORDERABLES Final Result [facility] [address] [place] [address] documented in this encounter Visit Diagnoses Not on filedocumented in this encounter Care Teams Rfp Writer Relationship Specialty Start Date End Date Unknown, Provider, PCP - General 05/16/17 documented as of this encounter
--- OUTSIDE RECORDS SUMMARY | 2024-07-17 17:39 | XMS_ITS | Encounter Summary ---
Author Organization [facility] Address [facility] [place] [address] Care Team Providers Care Appellate Law Clerk Name Role Phone Timmy Dailey MD, Alec Primary Care Provider [phone] Encounter Details Date Type Department Care Team (Latest Contact Info) Description 04/26/2016 8:00 AM EST - 04/26/2016 11:59 PM [facility] Hospital [place] [address] Edvin Baldwin MD [facility] [place] [address] Supervision of high risk in second trimester; [...] Refills Start Date End Date vitamin with [id number] ( VITAMIN) TabletIndications:Super vision of high risk [...] 09:00 am) PATIENT INFO: ID #: ? [id number] ?: [birth year] (20 yrs) Name: ? HARLEY Saucedo YOUNG ? Visit Date: 04/26/2016 08:30 am PERFORMED BY: Performed By: ? Padmini SWENSON, ?Sonya Attending: ?Edvin Baldwin MD ??Melissa Referred By: ?GERHARD PORRAS CNLudin Location: ? [facility] SERVICE(S) PROVIDED: ??UOBFOL - Efw - Growth - [place] - [id number] ? [id number] INDICATIONS: ??f/u growth; anatomy; reevaluation Umb ??cord/straight; [...] 04/26/2016 09:00 am) PATIENT INFO: ID #: [id number] : [birth year] (20 yrs) Name: HARLEY FRIEDMAN Visit Date: 04/26/2016 08:30 am PERFORMED BY: Performed By: Mary Washington RDMS Attending: Edvin Baldwin MD Referred By: GERHARD PORRAS [facility] Location: [facility] SERVICE(S) PROVIDED: UOBFOL - Efw - Growth - [place] - [id number] INDICATIONS: f/u growth; anatomy; reevaluation Umb cord/straight; [...] 04/26/2016 09:00 am E Melissa Baldwin MD [facility] OB ORDERAB LES documented in this encounter Visit Diagnoses Diagnosis Supervision of high risk in second trimester Unspecified high-risk Medication exposure during first trimester of Supervision of other high-risk documented in this encounter Care Teams Appellate Law Clerk Relationship Specialty Start Date End Date Warner, Alec X, [place] [address] PCP - General 05/04/10 06/17/16 documented as of this encounter
--- OUTSIDE RECORDS SUMMARY | 2024-07-17 17:39 | XMS_ITS | Encounter Summary ---
Author Organization [facility] Address [address] [place] [address] Care Team Providers Care Online Tutor Name Role Phone Unknown, Provider Primary Care Provider Unava ilable Encounter Details Date Type Department Care Team (Late st Contact Info) Description 12/02/2019 Lab Requisition [facility] Pathology & Laboratory Medicine - [address] [address] Outr Resulting Lab, Provider Social History Tobacco [...] gonorrhoeae Result Negative Negative 12/04/2019 7:12 EDT [facility] Chlamydia trachomatis Result Negative Negative 12/04/2019 7:12 EDT [facility] Swab ENTIRE ENDOCERVIX / Unknown 12/02/2019 11:00 EDT 12/02/2019 21:17 EDT us Provider Outr Resulting Lab MICROBIOLOGY - GENER AL ORDERABLES Final Result [facility] [address] [place] [address] documented in this encounter Visit Diagnoses Not on filedocumented in this encounter Care Teams Online Tutor Relationship Specialty Start Date End Date Unknown, Provider, PCP - General 05/16/17 documented as of this encounter
--- OUTSIDE RECORDS SUMMARY | 2024-07-17 17:39 | XMS_ITS | Encounter Summary ---
[place] [address] Care Team Providers Care Operation Supervisor Name Role Phone Timmy Dailey MD, Alec Primary Care Provider [phone] Reason for Visit * Reason Comments Other Encounter Details Date Type Department Care Team (Late st Contact Info) Description 02/21/2014 Telephone Psychiatry [place] [phone] Omero Williamson MD Social History Tobacco Use [...] PM ------ Message from: BRADLEY TOLBERT Created: Utyet Feb 20, 2014 2:55 PM Regarding: Return Call Vanessa Dunlap called in ref to the above pt Vanessa is at home and to call her there [phone] documented in this encounter Plan of Treatment Not on file documented as of this encounter Visit Diagnoses Not on filedocumented in this encounter Care Teams Operation Supervisor Relationship Specialty Start Date End Date Alec Warner MD [address] [place] [address] [place] [address] PCP - General 05/04/10 06/17/16 documented as of this encounter
--- OUTSIDE RECORDS SUMMARY | 2024-07-17 17:39 | XMS_ITS | Encounter Summary ---
Author Organization [facility] Address [address] [place] [address] Care Team Providers Care Director Supply Chain Name Role Phone Unknown, Provider Primary Care Provider Unava ilable Encounter Details Date Type Department Care Team (Late st Contact Info) Description 12/22/2020 Lab Requisition [facility] Pathology & Laboratory [facility] - [facility] [address] [place] [address] Outr Resulting Lab, Provider Social History Tobacco [...] Ab Negative See Note 12/23/2020 10:01 EDT [facility] Comment:Absence of detectabl e [...] OGY ORDERABLES Final Result Performing Organization Address [facility]/ZIP Co de Phone Number [facility] [address] [place] [address] * RUBELLA IGG ANTIBODY (12/22/2020 14:55 EDT) Rubella IgG Ab Positive See Note 12/23/2020 10:02 EDT [facility] Comment:Positive for IgG ant ibodies to Rubella virus. Blood VENOUS BLOOD / Unknown 12/22/2020 14:55 EDT 12/22/2020 21:01 EDT us Provider Outr Resulting Lab CHEMISTRY & BLOOD GA S ORDERABLES Final Result Performing Organization Address [facility] Co de Phone Number [facility] [address] [place] [address] documented in this encounter Visit Diagnoses Not on filedocumented in this encounter Care Teams Director Supply Chain Relationship Specialty Start Date End Date Unknown, Provider, PCP - General 05/16/17 documented as of this encounter
--- NOTE | 2024-07-17 17:45 | ED.GENADUL_ITS ---
Discharge Plan Disposition Patient Disposition: Home Condition: Stable Discharge Details Clinical Impression: Fall Primary Care Provider: Kristopher Perez ED Provider: Dawson Smith Home Meds and New Rx's Prescriptions: Continued fluticasone propion-salmeterol [Advair HFA] 230-21 mcg/actuation HFA aerosol inhaler 2 puff inhalation BID Qty: 12 2RF sertraline 100 mg tablet 150 mg PO DAILY Qty: 135 4RF melatonin 3 mg capsule 3 mg PO DAILY PRN (Reason: sleep) Qty: 90 6RF ibuprofen 800 mg tablet 800 mg PO Q8H PRN (Reason: fever or pain) acetaminophen 325 MG tablet 650 mg PO Q4H PRN Qty: 60 loratadine [Allergy Relief (loratadine)] 10 mg tablet 10 mg PO DAILY Qty: 90 4RF albuterol sulfate 90 mcg/actuation HFA aerosol inhaler 2 inh inhalation Q4H PRN (Reason: shortness of breath or wheezing) Qty: 18 0RF Discharge Instructions Instructions: Neck Sprain (DC), Sciatica ED Additional Instructions: You were seen in the emergency department for your fall 6 days ago, you have mild neck and low back pain with radiation down your leg, this is consistent with a neck sprain and sciatica. There is no evidence of any trauma to your chest or lungs. You are neurologically intact. Your dizziness may be due to mild concussive symptoms. It may take up to 2 weeks for the symptoms to resolve. Please continue Tylenol and ibuprofen as needed for pain, apply [id number] lidocaine patches to areas of pain each day. Follow-up with physical therapy by referral if desired for improvement of sciatica pain. Please return to the emergency department for urinary retention, loss of bowel without noticing, numbness to genitals, neurologic abnormality. Stand Alone Forms: Physical Therapy Referral Referrals: Kristopher Perez, STAFF DEVELOPMENT MANAGER [Primary Care Provider] - Discharge Data Discharge Date/Time-TO BE ENTERED AT DEPARTURE: 07/17/24 19:16 HPI General Date/Time Provider Initiated Documentation: 07/17/24 17:45 . HPI Narrative: 29 year-old female presents to ED today by POV/ambulating with a chief complaint of fall 6 days ago outside, hit her chin, having headache, neck pain, low back pain, and diffuse anterior chest soreness from falling on her stomach- states mild dizziness intermittently, and radiation of pain down L leg intermittently. Quality described as neck pain worst symptom, no radiation to urinary retention, bowel incontinence, inability to ambulate, painful ROM of neck, confusion, slurred speech, visual changes, LOC, nausea/vomiting, amnesia. Severity is described as 10/10 while calmly on her phone. Palliating factors include nothing specific attempted. Provoking factors include nothing specific. Patient not anticoagulated. Related Data Home Medications ?Medication ?Instructions ?Recorded ?Confirmed acetaminophen 325 mg tablet 650 mg PO Q4H PRN #60 tab-caps 01/27/16 07/17/24 melatonin 3 mg capsule 3 mg PO DAILY PRN sleep #90 caps 11/07/19 07/17/24 loratadine 10 mg tablet (Allergy 10 mg PO DAILY #90 tabs 08/11/21 07/17/24 Relief (loratadine)) ibuprofen 800 mg tablet 800 mg PO Q8H PRN fever or pain 12/27/21 07/17/24 albuterol sulfate 90 mcg/actuation 2 inh inhalation Q4H PRN shortness 01/20/23 07/17/24 aerosol inhaler of breath or wheezing #18 grams fluticasone propionate 230 2 puff inhalation BID #12 grams 08/15/23 07/17/24 mcg-salmeterol 21 mcg/actuation HFA inhaler (Advair HFA) sertraline 100 mg tablet 150 mg (1.5 x 100 mg) PO DAILY 08/15/23 07/17/24 #135 tabs Previous Rx's ?Medication ?Instructions ?Recorded melatonin 3 mg capsule 3 mg PO DAILY PRN sleep #90 caps 11/07/19 loratadine 10 mg tablet (Allergy 10 mg PO DAILY #90 tabs 08/11/21 Relief (loratadine)) albuterol sulfate 90 mcg/actuation 2 inh inhalation Q4H PRN shortness 01/20/23 aerosol inhaler of breath or wheezing #18 grams fluticasone propionate 230 2 puff inhalation BID #12 grams 08/15/23 mcg-salmeterol 21 mcg/actuation HFA inhaler (Advair HFA) sertraline 100 mg tablet 150 mg (1.5 x 100 mg) PO DAILY 08/15/23 #135 tabs Allergies Allergy/AdvReac Type Severity Reaction Status Date / Time No Known Allergies Allergy Verified 07/17/24 17:21 General Stated Complaint: Fall/Non TraumaCriteria DAVID: 3 Review of Systems All systems reviewed & are unremarkable except as noted in HPI and below Exam Narrative Exam Narrative: GENERAL APPEARANCE: Well-nourished, non-toxic, awake and alert, atraumatic, no acute distress. SKIN: Warm, pink, dry, intact, without rashes/lesions/ulcerations. HEAD: Normocephalic, atraumatic, normal hair distribution for gender/age. EYES: Normal conjunctiva, no exudates on lids/lashes. ENT: Nares patent, no circumoral cyanosis, no facial swelling NECK: Supple, trachea midline, painless cervical ROM, mild midline cervical tenderness without crepitus/step-offs. LUNGS/CHEST: Lungs CTA bilaterally- no rhonchi/rales/wheezes diffusely, non-l abored respirations, normal A/P diameter, symmetrical expansion, no chest wall deformity, no crepitus, no flail segment/paradoxical motion HEART (CV/PV): Regular rate and rhythm without murmur, no peripheral edema, no JVD. ABDOMEN: Soft, non-distended, no guarding. MSK: Normal ROM, no swelling/deformity to bilateral UEs or LEs, moving all extremities without weakness, no cyanosis, spine midline without tenderness, normal curvature. NEURO: Mental Status AAOx4 - alert to person, place, time, events No facial droop, no forehead involvement. Motor: No focal weakness - strength 5/5 in bilateral UEs and LEs, proximal and distal, symmetric. Sensory: sensation intact to light touch globally. Gait normal: patient ambulated without ataxia into ED room. PSYCH: euthymic, cooperative, pleasant, appropriate speech Course Vital Signs Vital signs: Vital Signs Temperature 36.4 C L 07/17/24 17:18 Pulse 110 H 07/17/24 17:18 Respiratory Rate 16 07/17/24 17:18 Blood Pressure 132/68 07/17/24 17:18 Pulse Oximetry 100 07/17/24 17:18 Temperature 36.4 C L 07/17/24 17:18 Pulse 110 H 07/17/24 17:18 Respiratory Rate 16 07/17/24 17:18 Blood Pressure 132/68 07/17/24 17:18 Pulse Oximetry 100 07/17/24 17:18 Pain Level 10 07/17/24 17:18 Medical Decision Making This dictation utilizes [id number] dictation software and may contain unedited grammatical errors. 29 year-old female presents to ED today by POV/ambulating with a chief complaint of fall 6 days ago outside, hit her chin, having headache, neck pain, low back pain, and diffuse anterior chest soreness from falling on her stomach- states mild dizziness intermittently, and radiation of pain down L leg intermittently. Quality described as neck pain worst symptom, no radiation to urinary retention, bowel incontinence, inability to ambulate, painful ROM of neck, confusion, slurred speech, visual changes, LOC, nausea/vomiting, amnesia. Severity is described as 10/10 while calmly on her phone. Palliating factors include nothing specific attempted. Provoking factors include nothing specific. Patients' medic al history: History of migraines, asthma, panic and anxiety, chronic midline low back pain. Family and social history: Noncontributory. Pertinent exam findings / vital signs include mild midline cervical tenderness with painless cervical range of motion, no crepitus or step-offs, mild left lumbar SI joint tenderness. Differential / pathologies of concern include sciatica, cervical strain, not fracture/ICH. Diagnostic studies of: -CT C and L-spine without contrast, XR chest. -All imaging negative Interventions of: -Lidoderm patch, acetaminophen, ibuprofen, methocarbamol. ED Course/Assessment/Plan: 21-year-old female presents with fall 6 days ago having mild mid neck pain with pain with cervical range of motion, neuro baseline, has chronic sciatica and left SI joint tenderness, the imaging shows no acute vertebral fracture, she did fall on her stomach and requested a chest x-ray which shows no acute pathology, do not suspect rib fracture based on her exam, counseled her on using regular dose of Tylenol and ibuprofen and Lidoderm patches for areas of pain in her back and neck, follow-up with primary care, strict return criteria for any urinary retention, bowel incontinence, numbness of genitalia or significant respiratory distress. Findings not consistent with fracture, pneumothorax, cauda equina. Disposition of Fall. Patient verbalized understanding of the plan and return to ED criteria and engaged in shared decision making. Medical Records Medical records reviewed: Yes I reviewed the patient's medical records. Imaging Data Radiologic Study: Attestation: I personally reviewed and interpreted this imaging study as follows: Imaging: CT Scan Radiologist's impression: EXAM: CT CERVICAL SPINE WO CLINICAL HISTORY: neck pain, fall 6 days ago. TECHNIQUE: Imaging Protocol: Axial computed tomography images with coronal and sagittal reformatted images were created and reviewed COMPARISON: No exams were available for comparison FINDINGS: Bones: No acute fracture or subluxation. There is reversal of the normal cervical lordosis. This is likely due to patient positioning or muscle spasm. Soft Tissues: Unremarkable. Lung Apices: Clear. Visualized paranasal sinuses : There are mucous retention cysts in the maxillary sinuses bilaterally. IMPRESSION: No acute fracture or subluxation in the cervical spine. Radiologic Study #2: Attestation: I personally reviewed and interpreted this imaging study as follows: Imaging: CT Scan Radiologist's impression: EXAM: CT LUMBAR SPINE WO CLINICAL HISTORY: lower back pain, fall 6 days ago, L radiculopathy. TECHNIQUE: Imaging Protocol: Axial computed tomography images with coronal and sagittal reformatted images were created and reviewed. COMPARISON: CR XR LUMBAR SPINE COMPLETE from 06/30/2023 FINDINGS: Bones: No fractures or dislocations are seen. The alignment of the spine is normal including the thoracolumbar junction. Soft tissues: The soft tissues of the visualized abdomen and chest are unre markable. No large disk herniations are identified. IMPRESSION: No acute fracture or subluxation in the lumbar spine. Radiologic Study #3: Attestation: I personally reviewed and interpreted this imaging study as follows: Imaging: X-Ray Radiologist's impression: EXAM: XR CHEST 2V PA LATERAL CLINICAL HISTORY: fall to stomach, mild rib pain TECHNIQUE: 2D digital imaging was performed of the chest. Two images were obtained. PA and lateral views were obtained. COMPARISON: CR XR CHEST 2V PA LATERAL from 07/09/2024 FINDINGS: MEDIASTINUM: Normal. HEART: Normal. PULMONARY VASCULATURE: Normal. LUNGS: Clear. PLEURAL SPACE: No pleural effusion or pneumothorax. BONE:Within normal limits for the patient's age. OTHER FINDINGS:Normal. IMPRESSION: No acute pulmonary findings. If there is continued concern for rib fracture, dedicated rib film series is recommended. 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 Has child welfare caseworker Barry Umbilical abnormality (Acute 06/29/16) Insomnia (Acute 07/25/17) Increased BMI (body mass index) (Chronic 08/24/17) Depressive disorder (Chronic 06/21/13) Psychiatric consult 02/23 Chronic midline low back pain without sciatica (Chronic 08/24/17) Attention deficit hyperactivity disorder (Chronic 10/31/12) Medical History examination following vaginal delivery (normal spontaneous vaginal delivery) History of delivery, currently Gestational diabetes Maternal varicella, non-immune Elevated BP without diagnosis of hypertension Discomfort of right ear Hx of migraines Surgical History Tonsillectomy and adenoidectomy 2003 Patent Ductus Arteriosus closure Family History Father Diabetes Maternal Grandfather , age 41 Brain cancer Mother Depression Brother , born at 5 months No problems noted. Daughter No problems noted. Paternal Grandfather No problems noted. Maternal Grandmother , age 74 Diabetes Heart disease Cervix cancer Stroke Brain cancer Lymph node cancer Paternal Grandmother No problems noted. Social History Smoking/Tobacco Use Status: Current-Occasional Tobacco Type: cigarettes Tobacco: How many years used: 9 Quit status: has quit before Second Hand Exposure: Yes Smoking risk assessment performed?: Yes Alcohol Intake: current Alcohol Intake frequency: holidays/special occasions only Counseling provided: provider counseling Details: Occasional binge drinking - counselled Drug use: Occasionally Substance use type: marijuana Adopted: No Household members: family and other Details: lives with mother. Has supervised visitation with her son. No contact daugh Housing: apartment Number of Children: 2 Do you need help understanding health information?: Never current occupation: Disabled. Pets and animals: Yes Pets and animals: dog(s) Sexually active: Yes Do you think of yourself as: straight/heterosexual Current gender identity: female What is your relationship status?: never How often do you talk on the phone with friends or family?: never How often do you get together with friends or relatives?: once per week How often do you attend sikhism or moravian services?: 1-3 times per year Do you belong to any clubs or organized social groups?: no Panel score (0-1 are the most socially isolated patients): 0 Duration: < 15 minutes/day Frequency: 1-2 times per week Evangelina/Shinto: No preference Seatbelt use: sometimes Helmet use: No Drive intox or ride w/intox screw driver operator: No Do you feel safe at home: Yes Do you feel safe in your relationship?: Yes History History 3 Para 2 Hx # Term Pregnancies 0 Multiple births 0 Hx # Pregnancies 3 Ectopic pregnancies 0 AB induced 0 Hx Number of Living Children 2 AB spontaneous 0 Past Pregnancies Del. Date GA/Weeks # Preg Succ Route Wgt Sex Labor Lgth Anesth esia Location [facility] 07/20/16 34 vaginal 2494.758 g Female [facility] 05/06/18 34 No vaginal 2148.894 g Male [facility] [place] 07/06/21 38 No vaginal 2806.603 g Female Candida Vásquez Delivery Date: 07/20/16 Last Updated by: Tiff Nicolas PPROM, IOL with Pitocin, pt does not have custody. Delivery Date: 05/06/18 Last Updated by: So Miller M.D. Does not have custody.
--- NOTE | 2024-07-17 18:02 | DI.CT_ITS ---
Exam(s) CT LUMBAR SPINE WO EXAM: CT LUMBAR SPINE WO CLINICAL HISTORY: lower back pain, fall 6 days ago, L radiculopathy. TECHNIQUE: Imaging Protocol: Axial computed tomography images with coronal and sagittal reformatted images were created and reviewed. COMPARISON: CR XR LUMBAR SPINE COMPLETE from 06/30/2023 FINDINGS: Bones: No fractures or dislocations are seen. The alignment of the spine is normal including the thor acolumbar junction. Soft tissues: The soft tissues of the visualized abdomen and chest are unremarkable. No large disk he rniations are identified. IMPRESSION: No acute fracture or subluxation in the lumbar spine. RADIATION DOSE DELIVERED: 1,371.48mGy.cm Total DLP 1,371.48mGy.cm Total DLP DATA REPOSITORY: All CT scans at this facility are submitted to the National Radiology Data Registry (NRDR) Dose Index Registry (DIR) with the [employer] ([employer]). RADIATION OPTIMIZATION: All CT scans at this facility use at least one of these dose optimization te chniques: automated exposure control; mA and/or kV adjustment per patient size (includes targeted exa ms where dose is matched to clinical indication); or iterative reconstruction.
--- NOTE | 2024-07-17 18:02 | DI.CT_ITS ---
Exam(s) CT CERVICAL SPINE WO EXAM: CT CERVICAL SPINE WO CLINICAL HISTORY: neck pain, fall 6 days ago. TECHNIQUE: Imaging Protocol: Axial computed tomography images with coronal and sagittal reformatted images were created and reviewed COMPARISON: No exams were available for comparison FINDINGS: Bones: No acute fracture or subluxation. There is reversal of the normal cervical lordosis. This is likely due to patient positioning or muscle spasm. Soft Tissues: Unremarkable. Lung Apices: Clear. Visualized paranasal sinuses : There are mucous retention cysts in the maxillary sinuses bilaterally. IMPRESSION: No acute fracture or subluxation in the cervical spine. RADIATION DOSE DELIVERED: 595.41mGy.cm Total DLP 595.41mGy.cm Total DLP DATA REPOSITORY: All CT scans at this facility are submitted to the National Radiology Data Registry (NRDR) Dose Index Registry (DIR) with the [employer] ([employer]). RADIATION OPTIMIZATION: All CT scans at this facility use at least one of these dose optimization te chniques: automated exposure control; mA and/or kV adjustment per patient size (includes targeted exa ms where dose is matched to clinical indication); or iterative reconstruction.
[2024-07-17] MEDS: Ibuprofen 400 MG TAB PO (18:09)
[2024-07-17] MEDS: Acetaminophen 500 MG TAB 1000 MG PO (18:09)
--- NOTE | 2024-07-17 18:10 | DI.RAD_ITS ---
Exam(s) XR CHEST 2V PA LATERAL EXAM: XR CHEST 2V PA LATERAL CLINICAL HISTORY: fall to stomach, mild rib pain TECHNIQUE: 2D digital imaging was performed of the chest. Two images were obtained. PA and lateral views were obtained. COMPARISON: CR XR CHEST 2V PA LATERAL from 07/09/2024 FINDINGS: MEDIASTINUM: Normal. HEART: Normal. PULMONARY VASCULATURE: Normal. LUNGS: Clear. PLEURAL SPACE: No pleural effusion or pneumothorax. BONE:Within normal limits for the patient's age. OTHER FINDINGS:Normal. IMPRESSION: No acute pulmonary findings. If there is continued concern for rib fracture, dedicated rib film serie s is recommended. DATA REPOSITORY: RADIATION DOSE DELIVERED:
[2024-07-17] MEDS: Methocarbamol 750 MG TAB PO (18:34)
[2024-07-17] MEDS: Lidocaine 5% Patch 2 PATCH TP (18:34)
[2024-07-17 18:56] VITALS: BP 126/69; PULSE 78; RESP 16; O2SAT 98
== END 2024-07-17 19:16 | disposition home or self-care (01) ==
PROVIDERS: Emergency Provider Physician Assistant; PCP Nurse Practitioner Family
DX: M54.2 Cervicalgia (principal); M54.42 Lumbago with sciatica, left side
CPT/HCPCS: 81025; 99285; 71046; 72125; 72131; 99284

== ENCOUNTER 2024-08-07 12:16 | Emergency (ER) | payer MEDICAID, SELFPAY ==
[2024-08-07 12:39] VITALS: BP 132/86; PULSE 99; RESP 16; TEMP 37.2
--- NOTE | 2024-08-07 13:00 | DI.CT_ITS ---
Exam(s) CT HEAD WO EXAM: CT HEAD WO CLINICAL HISTORY: Convulsive activities. TECHNIQUE: Imaging Protocol: Axial computed tomography images with coronal and sagittal reformatted images were created and reviewed COMPARISON: No exams were available for comparison FINDINGS: Ventricles and Extra axial spaces: Normal in size and morphology for the patient's age. Hemorrhage: None. Cerebral parenchyma: Normal. There is a normal posada-white matter differentiation. No acute mass effe ct is present. Midline shift: None. Brainstem/Cerebellum: Normal. Calvarium: Normal. Visualized Paranasal sinuses/Mastoids: Clear. Soft Tissues: Unremarkable. IMPRESSION: No acute intracranial process. RADIATION DOSE DELIVERED: 867.46mGy.cm Total DLP DATA REPOSITORY: All CT scans at this facility are submitted to the National Radiology Data Registry (NRDR) Dose Index Registry (DIR) with the [employer] (ACR). RADIATION OPTIMIZATION: All CT scans at this facility use at least one of these dose optimization te chniques: automated exposure control; mA and/or kV adjustment per patient size (includes targeted exa ms where dose is matched to clinical indication); or iterative reconstruction.
--- NOTE | 2024-08-07 13:03 | ED.GENADUL_ITS ---
Discharge Plan Disposition Patient Disposition: Home Condition: Stable Discharge Details Clinical Impression: Convulsion, Anxiety, Asthma, History of posttraumatic stress disorder (PTSD) Primary Care Provider: Kristopher Perez ED Provider: Viky Gonzalez Home Meds and New Rx's Prescriptions: No Action fluticasone propion-salmeterol [Advair HFA] 230-21 mcg/actuation HFA aerosol inhaler 2 puff inhalation BID Qty: 12 2RF sertraline 100 mg tablet 150 mg PO DAILY Qty: 135 4RF Nexplanon 68 mg implant 1 implant subdermal ONCE Rx Instructions: as a single dose melatonin 3 mg capsule 3 mg PO DAILY PRN (Reason: sleep) Qty: 90 6RF ibuprofen 800 mg tablet 800 mg PO Q8H PRN (Reason: fever or pain) acetaminophen 325 MG tablet 650 mg PO Q4H PRN Qty: 60 loratadine [Allergy Relief (loratadine)] 10 mg tablet 10 mg PO DAILY Qty: 90 4RF albuterol sulfate 90 mcg/actuation HFA aerosol inhaler 2 inh inhalation Q4H PRN (Reason: shortness of breath or wheezing) Qty: 18 0RF Discharge Instructions Instructions: Tips to Help You [place] in Uncertain Times Additional Instructions: You were seen in the emergency department today for evaluation of convulsive episodes, which are concerning for nonepileptiform activity, which can be associated with stress like you are experiencing. These episodes can be quite distressing, but reassuringly, your workup today did not show any abnormalities in your blood work, and your head CT was normal. Typically offering support and treatment for the root cause of these episodes, such as meeting with a counselor, managing your PTSD, etc., can improve the frequency of episodes or even stop them completely. However, I did provide a referral to neurology if these episodes continue, change, or worsen. You also need to reach out to your primary care provider to discuss any ongoing steps for management of your PTSD, anxiety and depression. Thank you for allowing us to be part of your care. HPI General Mode of arrival: ambulatory . Date/Time Provider Initiated Documentation: 08/07/24 12:52 . Limitations to Documentation: no limitations . Information obtained by: patient, family and old records reviewed . HPI Narrative: HPI: This is a 29-year-old female patient presenting for evaluation of possible seizures. The patient is accompanied by her fianc?, and states that 2 days ago she had an episode of uncontrollable body movements, flapping of her hands and kicking of her feet, that lasted approximately 10 minutes. She states that she had another shorter episode today of similar movements. States that today she maintained consciousness during the episode and was aware of her body during it. She felt like it was a movement that she could not control or stop. She has never had an episode like this before. Did not cause injury or trauma to herself during these events. The patient reports a baseline history of PTSD and states that she always has increased stress during the months of April, June, and July. She reports that her stress will be over at the end of the month, and cites her stress over her children as the cause of her stress. She does not work significantly with outpatient mental health providers and is not desiring of this provider to give her any resources today. She denies suicidal and homicidal ideation. Exam: Gen: awake and alert, in no apparent distress. Appears well nourished. HEENT: PERRL, EOMs full and without nystagmus. External ears and nose normal, mucous membranes moist. Neck: Supple, full range of motion, no observable masses Lungs: No increased work of breathing, lung sounds clear and equal bilaterally without wheezes, rhonchi, or rales. CV: Heart with regular rate and rhythm, no murmurs auscultated. Strong and symmetrical radial pulses. Abdomen: Soft, nondistended, non-tended to palpation. No rigidity, rebound ten derness, or guarding. MSK: No joint swelling, no redness. Full ROM without limitation, no external traumatic findings. Skin: No rashes or lesions to visualized skin. Normal color, warm, and dry. Neuro: Cranial nerves II-XII intact and symmetrical bilaterally. 5/5 strength in all muscle groups x4 extremities. No sensory deficits. Ambulates with steady gait. Psych: No suicidal or homicidal ideation, does demonstrate some mild limitation in insight MDM: This is a 29-year-old female patient presenting for evaluation of convulsive episodes. I am most concerned for PNES or nonepileptiform activity, though certainly I considered seizures, including partial seizures, symptoms less consistent with abstinence, [place], and she does not meet criteria for status epilepticus. Considered intracranial abnormalities including hemorrhage, mass effect, metabolic derangements, kidney injury, liver disease. The patient is reassuringly without any signs of injury on her physical examination, she did experience 2 or 3 of these episodes during my evaluation, which presented as hand flapping and leg kicking lasting several seconds. She retained consciousness during this and I do not see an indication to initiate anticonvulsant agents at this time. We will obtain a CT head and laboratory studies to include CBC, CMP, magnesium, urinalysis, TSH ED Course: I independently interpreted the laboratory studies, which show no significant leukocytosis, anemia, or thrombocytopenia. The chemistry panel is without evidence of electrolyte abnormality, kidney dysfunction, or liver injury. TSH within normal limits, urinalysis noninfectious, limited by a squamous contamination. In the absence of urinary tract symptoms I have a lower concern. [id number] screen negative. 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 The patient is not desiring of any mental health out reach at this time, does not meet criteria for involuntary hold given her lack of suicidal not homicidal ideation, and during our conversation was offered reassurance that with support and time many people find relief from these episodes. She did not experience any further episodes during this conversation that I had with her. I will offer her a referral to neurology if her convulsive episodes change or worsen. At this time, the patient has had a full medical evaluation and is safe for discharge to home. They are hemodynamically stable, ambulatory, and tolerating PO. They are understanding of the follow-up plan and return precautions. They left our facility without incident. Viky Gonzalez MD Related Data Home Medications ?Medication ?Instructions ?Recorded ?Confirmed acetaminophen 325 mg tablet 650 mg PO Q4H PRN #60 tab-caps 01/27/16 08/07/24 melatonin 3 mg capsule 3 mg PO DAILY PRN sleep #90 caps 11/07/19 08/07/24 loratadine 10 mg tablet (Allergy 10 mg PO DAILY #90 tabs 08/11/21 08/07/24 Relief (loratadine)) ibuprofen 800 mg tablet 800 mg PO Q8H PRN fever or pain 12/27/21 08/07/24 albuterol sulfate 90 mcg/actuation 2 inh inhalation Q4H PRN shortness 01/20/23 08/07/24 aerosol inhaler of breath or wheezing #18 grams fluticasone propionate 230 2 puff inhalation BID #12 grams 08/15/23 08/07/24 mcg-salmeterol 21 mcg/actuation HFA inhaler (Advair HFA) sertraline 100 mg tablet 150 mg (1.5 x 100 mg) PO DAILY 08/15/23 08/07/24 #135 tabs etonogestrel 68 mg subdermal 1 implant subdermal ONCE 07/30/24 08/07/24 implant (Nexplanon) Previous Rx's ?Medication ?Instructions ?Recorded melatonin 3 mg capsule 3 mg PO DAILY PRN sleep #90 caps 11/07/19 loratadine 10 mg tablet (Allergy 10 mg PO DAILY #90 tabs 08/11/21 Relief (loratadine)) albuterol sulfate 90 mcg/actuation 2 inh inhalation Q4H PRN shortness 01/20/23 aerosol inhaler of breath or wheezing #18 grams fluticasone propionate 230 2 puff inhalation BID #12 grams 08/15/23 mcg-salmeterol 21 mcg/actuation HFA inhaler (Advair HFA) sertraline 100 mg tablet 150 mg (1.5 x 100 mg) PO DAILY 08/15/23 #135 tabs Allergies Allergy/AdvReac Type Severity Reaction Status Date / Time No Known Allergies Allergy Verified 08/07/24 12:43 General Stated Complaint: Seizure DAVID: 3 Course Vital Signs Vital signs: Vital Signs Temperature 37.2 C 08/07/24 12:39 Pulse 99 H 08/07/24 12:39 Respiratory Rate 16 08/07/24 12:39 Blood Pressure 132/86 08/07/24 12:39 Temperature 37.2 C 08/07/24 12:39 Temperature Source Oral 08/07/24 12:39 Pulse 99 H 08/07/24 12:39 Respiratory Rate 16 08/07/24 12:39 Blood Pressure 132/86 08/07/24 12:39 Blood Pressure Position Sitting 08/07/24 12:39 Oxygen Delivery Method Room Air 08/07/24 12:39 Oxygen Flow Rate 0 08/07/24 12:39 Pain Level 0 08/07/24 12:39 Medical Decision Making Quality:SDOH Health Related Social Needs: No Data to Display PFSH All Active Problems (Updated 08/07/24 @ 15:40 by Viky Gonzalez MD) History of posttraumatic stress disorder (PTSD) (Acute) Convulsion (Acute) Fall (Acute) Chest pain (Acute) 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 Umbilical abnormality (Acute 06/29/16) Insomnia (Acute 07/25/17) Increased BMI (body mass index) (Chronic 08/24/17) Depressive disorder (Chronic 06/21/13) Psychiatric consult 02/23 Chronic midline low back pain without sciatica (Chronic 08/24/17) Attention deficit hyperactivity disorder (Chronic 10/31/12) Medical History (Updated 08/07/24 @ 15:40 by Viky Gonzalez MD) Nexplanon in place Original 07/07/21 Replaced 07/30/24 Elevated BP without diagnosis of hypertension Discomfort of right ear Hx of migraines Surgical History Tonsillectomy and adenoidectomy 2003 Patent Ductus Arteriosus closure Family History Father Diabetes Maternal Grandfather , age 41 Brain cancer Mother Depression Brother , born at 5 months No problems noted. Daughter No problems noted. Paternal Grandfather No problems noted. Maternal Grandmother , age 74 Diabetes Heart disease Cervix cancer Stroke Brain cancer Lymph node cancer Paternal Grandmother No problems noted. Social History Smoking/Tobacco Use Status: Current-Occasional Tobacco Type: cigarettes Tobacco: How many years used: 9 Quit status: has quit before Second Hand Exposure: Yes Smoking risk assessment performed?: Yes Alcohol Intake: current Alcohol Intake frequency: holidays/special occasions only Counseling provided: provider counseling Details: Occasional binge drinking - counselled Drug use: Occasionally Substance use type: marijuana Adopted: No Household members: family and other Details: lives with mother. Has supervised visitation with her son. No contact daugh Housing: apartment Number of Children: 2 Do you need help understanding health information?: Never current occupation: Disabled. Pets and animals: Yes Pets and animals: dog(s) Sexually active: Yes Do you think of yourself as: straight/heterosexual Current gender identity: female What is your relationship status?: never How often do you talk on the phone with friends or family?: never How often do you get together with friends or relatives?: once per week How often do you attend spiritism or roman catholic services?: 1-3 times per year Do you belong to any clubs or organized social groups?: no Panel score (0-1 are the most socially isolated patients): 0 Duration: < 15 minutes/day Frequency: 1-2 times per week Evaneglina/Mandaeism: No preference Seatbelt use: sometimes Helmet use: No Drive intox or ride w/intox goat driver: No Do you feel safe at home: Yes Do you feel safe in your relationship?: Yes History History 3 Para 2 Hx # Term Pregnancies 0 Multiple births 0 Hx # Pregnancies 3 Ectopic pregnancies 0 AB induced 0 Hx Number of Living Children 2 AB spontaneous 0 Past Pregnancies Del. Date GA/Weeks # Preg Succ Route Wgt Sex Labor Lgth Anesth esia Location [facility] 07/20/16 34 vaginal 2494.758 g Female [facility] 05/06/18 34 No vaginal 2148.894 g Male [facility] [place] 07/06/21 38 No vaginal 2806.603 g Female Candida V[facility] Delivery Date: 07/20/16 Last Updated by: Tiff Nicolas PPROM, IOL with Pitocin, pt does not have custody. Delivery Date: 05/06/18 Last Updated by: So Miller M.D. Does not have custody.
[2024-08-07 13:46] LABS: Abs Immature Grans 0.02 10^3/uL (0.0-0.06); Absolute Basophil Count 0.03 10^3/uL (0.0-0.2); Absolute Eosinophil Count 0.04 10^3/uL (0.0-0.7); Absolute Lymphocyte Count 3.44 10^3/uL (1.2-3.4); Absolute Monocyte Count 0.41 10^3/uL (0.1-0.8); Absolute Neutrophil Count 5.92 10^3/uL (1.2-6.7); Basophils % 0.3 %; Eosinophils % 0.4 %; HCT 41.6 % (36.0-46.0); HGB 13.7 g/dL (11.2-15.7); Immature Grans % 0.2 %; Lymphocytes % 34.9 %; MCH 28.7 pg (27.0-33.0); MCHC 32.9 % (32.0-36.0); MCV 87 fL (80-95); MPV 9.2 fL (8.0-11.0); Monocytes % 4.2 %; Platelet Count 360 10^3/uL (130-400); RBC 4.78 10^6/uL (3.93-5.22); RDW 13.3 % (11.7-14.6); RDW-SD 42.7 fL; WBC 9.86 10^3/uL (4.4-10.8)
[2024-08-07 14:09] LABS: ALT 47 U/L (14-59); AST 16 U/L (15-37); Albumin 3.7 g/dL (3.4-5.0); Alkaline Phosphatase 125 U/L (46-116); Anion Gap 8.1 mmol/L (3-11); BUN 12 mg/dL (7-18); Bilirubin, Total 0.36 mg/dL (0.2-1.0); CO2 26.9 mmol/L (21.0-32.0); CREATININE 0.8 mg/dL (0.55-1.02); Calcium 9.3 mg/dL (8.5-10.1); Chloride 106 mmol/L (98-107); Estimated GFR 102.86 (mL/min/1.73m2); Glucose 93 mg/dL (74-106); Magnesium 1.8 mg/dL (1.8-2.4); Potassium 3.7 mmol/L (3.5-5.1); Sodium 141 mmol/L (136-145); TSH (W/Ref FT4) 0.88 uIU/mL (0.36-3.74); Total Protein 7.9 g/dL (6.4-8.2)
[2024-08-07 15:21] LABS: Bilirubin Negative (Negative); Blood Negative (Negative); Clarity Clear (Clear); Glucose Negative (Negative); Ketones Negative (Negative); Leukocyte Esterase Small (Negative); Nitrite Negative (Negative); pH 5.5 (5-8)
[2024-08-07 15:35] LABS: Bacteria Moderate HPF (Negative); C & S Indicated? No/Sq. Contamination; Casts Negative LPF (Negative); Crystals Negative HPF (Negative); Epithelial Cells Moderate HPF (Negative); Mucus Negative (Negative); RBC 0-2 HPF (0-2)
[2024-08-07 15:57] VITALS: BP 119/91; PULSE 84; RESP 12; O2SAT 97
== END 2024-08-07 15:59 | disposition home or self-care (01) ==
PROVIDERS: Emergency Provider Emergency Medicine; PCP Nurse Practitioner Family
DX: R56.9 Unspecified convulsions (principal); Z86.59 Personal history of other mental and behavioral disorders; F41.9 Anxiety disorder, unspecified; J45.909 Unspecified asthma, uncomplicated
CPT/HCPCS: 80053; 81025; 99284; 70450; 81003; 81015; 83735; 84443; 85025

== ENCOUNTER 2024-08-19 13:35 | Emergency (ER) | payer MEDICAID, SELFPAY ==
[2024-08-19 13:39] VITALS: BP 155/81; PULSE 87; RESP 20; TEMP 36.8; O2SAT 98
[2024-08-19 13:44] VITALS: BP 155/81; PULSE 87; RESP 20; TEMP 36.8; O2SAT 98
== END 2024-08-19 15:14 | disposition left against medical advice (07) ==
PROVIDERS: PCP Nurse Practitioner Family
DX: Z53.21 Procedure and treatment not carried out due to patient leaving prior to being seen by health care provider (principal)

== ENCOUNTER 2024-08-20 19:54 | Inpatient (IN) | payer MEDICAID, SELFPAY ==
[2024-08-20 19:55] VITALS: BP 145/101; PULSE 91; RESP 20; TEMP 37.2; O2SAT 97
--- NOTE | 2024-08-20 20:13 | W.ED.GENAD ---
Discharge Plan Disposition Patient Disposition: Admit to [facility] Condition: Stable Discharge Details Clinical Impression: Elevated liver transaminase level, Flank pain Primary Care Provider: Kristopher Perez ED Provider: Katie Bradshaw Home Meds and New Rx's Prescriptions: No Action Nexplanon 68 mg implant 1 implant subdermal ONCE Rx Instructions: as a single dose melatonin 3 mg capsule 3 mg PO DAILY PRN (Reason: sleep) Qty: 90 6RF ibuprofen 800 mg tablet 800 mg PO Q8H PRN (Reason: fever or pain) sertraline 100 mg tablet 150 mg PO DAILY Qty: 135 4RF fluticasone propion-salmeterol [Advair HFA] 230-21 mcg/actuation HFA aerosol inhaler 2 puff inhalation BID Qty: 12 2RF aripiprazole 2 mg tablet 2 mg PO DAILY Qty: 90 0RF acetaminophen 325 MG tablet 650 mg PO Q4H PRN Qty: 60 loratadine [Allergy Relief (loratadine)] 10 mg tablet 10 mg PO DAILY Qty: 90 4RF albuterol sulfate 90 mcg/actuation HFA aerosol inhaler 2 inh inhalation Q4H PRN (Reason: shortness of breath or wheezing) Qty: 18 0RF HPI General Mode of arrival: EMS. Date/Time Provider Initiated Documentation: 08/20/24 20:02. Limitations to Documentation: no limitations. Information obtained by: patient, RN notes reviewed and old records reviewed. HPI Narrative: 29-year-old female presents to the ER via EMS with a chief complaint of bilateral back pain which began yesterday. Patient had checked into the ER yesterday and left without being seen, she reports that she did vomit yesterday no vomiting since. Denies any diarrhea. She denies taking anything prior to arrival for her pain. She did fall and was evaluated with CT imaging beginning of July. She does have bilateral CVA tenderness with palpation, dark urine noted. She is also has a low-grade temp 37.2. She will soak convulsions and tremors which she was recently seen here for and has a follow-up for convulsions. Other history includes patent ductus arteriosus closure, history of migraines. Related Data Home Medications ?Medication ?Instructions ?Recorded ?Confirmed acetaminophen 325 mg tablet 650 mg PO Q4H PRN #60 tab-caps 01/27/16 08/20/24 melatonin 3 mg capsule 3 mg PO DAILY PRN sleep #90 caps 11/07/19 08/20/24 loratadine 10 mg tablet (Allergy 10 mg PO DAILY #90 tabs 08/11/21 08/20/24 Relief (loratadine)) ibuprofen 800 mg tablet 800 mg PO Q8H PRN fever or pain 12/27/21 08/20/24 albuterol sulfate 90 mcg/actuation 2 inh inhalation Q4H PRN shortness 01/20/23 08/20/24 aerosol inhaler of breath or wheezing #18 grams etonogestrel 68 mg subdermal 1 implant subdermal ONCE 07/30/24 08/20/24 implant (Nexplanon) aripiprazole 2 mg tablet 2 mg PO DAILY #90 tabs 08/12/24 08/20/24 fluticasone propionate 230 2 puff inhalation BID #12 grams 08/12/24 08/20/24 mcg-salmeterol 21 mcg/actuation HFA inhaler (Advair HFA) sertraline 100 mg tablet 150 mg (1.5 x 100 mg) PO DAILY 08/12/24 08/20/24 #135 tabs Previous Rx's ?Medication ?Instructions ?Recorded melatonin 3 mg capsule 3 mg PO DAILY PRN sleep #90 caps 11/07/19 loratadine 10 mg tablet (Allergy 10 mg PO DAILY #90 tabs 08/11/21 Relief (loratadine)) albuterol sulfate 90 mcg/actuation 2 inh inhalation Q4H PRN shortness 01/20/23 aerosol inhaler of breath or wheezing #18 grams aripiprazole 2 mg tablet 2 mg PO DAILY #90 tabs 08/12/24 fluticasone propionate 230 2 puff inhalation BID #12 grams 08/12/24 mcg-salmeterol 21 mcg/actuation HFA inhaler (Advair HFA) sertraline 100 mg tablet 150 mg (1.5 x 100 mg) PO DAILY 08/12/24 #135 tabs Allergies Allergy/AdvReac Type Severity Reaction Status Date / Time No Known Allergies Allergy Verified 08/20/24 20:03 General Stated Complaint: Nk/Back Pain DAVID: 3 Review of Systems All systems reviewed & are unremarkable except as noted in HPI and below Gastrointestinal Gastrointestinal: Reports as per HPI and Reports vomiting Genitourinary Genitourinary: Reports flank pain Musculoskeletal Musculoskeletal: Reports as per HPI and Reports back pain Exam Narrative Exam Narrative: Constitutional: Alert and oriented x3. Appears stated age. Obese body habitus. Head: Normocephalic, no trauma. Eyes: Pupils PERRL, Red reflex noted, EOM's intact. Eyelids symmetrical without lesions, discharge, or swelling. ENT: Bilateral TM's WNL, External ear normal to inspection, no mastoid TTP, swelling, or erythema, Nasal turbinates WNL, no nasal discharge. Normal dentition, Posterior pharynx WNL, no exudate. Chest: RRR, Normal S1, S2, distal pulses intact. Resp: Lungs clear to auscultation bilaterally, no wheezes, rales, or rhonchi. Abdomen: Soft, non-distended, Normoactive bowel sounds all 4 quads. Bilateral CVA tenderness with palpation. Musculoskeletal: Normal gait, Moves all 4 extremities without difficulty. Skin: No suspicious rashes or lesions. Capillary refill less than 2 sec. Neurologic: Cranial nerves II-XII intact. Alert and oriented x 3. Motor: No deficits noted. Sensory: Intact bilaterally all 4 extremities. Hematologic/Lymphatic: No ecchymosis, no lymphadenopathy. Course Vital Signs Vital signs: Vital Signs Temperature 37.2 C 08/20/24 19:55 Pulse 91 H 08/20/24 19:55 Respiratory Rate 20 08/20/24 19:55 Blood Pressure 145/101 H 08/20/24 19:55 Pulse Oximetry 97 08/20/24 19:55 Temperature 37.2 C 08/20/24 19:55 Temperature Source Oral 08/20/24 19:55 Pulse 91 H 08/20/24 19:55 Respiratory Rate 20 08/20/24 19:55 Blood Pressure 145/101 H 08/20/24 19:55 Blood Pressure Position Sitting 08/20/24 19:55 Pulse Oximetry 97 08/20/24 19:55 Oxygen Delivery Method Room Air 08/20/24 19:55 Oxygen Flow Rate 0 08/20/24 19:55 Pain Level 10 08/20/24 19:55 Medical Decision Making 29-year-old female presents to the ER via EMS with a chief complaint of bilateral back pain which began yesterday. Patient had checked into the ER yesterday and left without being seen, she reports that she did vomit yesterday no vomiting since. Denies any diarrhea. She denies taking anything prior to arrival for her pain. She did fall and was evaluated with CT imaging beginning of July. She does have bilateral CVA tenderness with palpation, dark urine noted. She is also has a low-grade temp 37.2. She will soak convulsions and tremors which she was recently seen here for and has a follow-up for convulsions. Other history includes patent ductus arteriosus closure, history of migraines. CBC CMP urinalysis urine test ordered and a gram of Tylenol. Differential diagnose includes not limited to musculoskeletal pain, UTI, pyelonephritis, cholecystitis. CBC shows no leukocytosis, sodium 145 potassium 3.4 glucose 118 total bilirubin 1.1 AST elevated at 150 ALT 175 alk phos 134 lipase is pending at this time urinalysis shows trace ketones moderate bilirubin small leukocytes. CT abdomen pelvis ordered. CT shows gallbladder distention and common bile duct dilated to 9 mm with the elevated bilirubin and transaminases will speak with surgery. 2208: Spoke with Dr. Saleem who is technical assistance consultant with surgery, he agrees to admit her for further evaluation tomorrow, discussed CT results with patient and she verbalizes understanding and is agreeable to admission. Holding admission orders placed. This text was generated using Order Mapper dictation system, please disregard any oddities of phrase or misspellings. Medical Records Medical records reviewed: Yes I reviewed the patient's medical records. Imaging Data Radiologic Study: Imaging: CT Scan Radiologist's impression: IMPRESSION: 1. Prominent gallbladder distension. Mild intrahepatic biliary distension. Common bile duct dilated to 9 mm. Clinical correlation is recommended to assess the possibility of acute cholecystitis and/or biliary obstruction. No calcified gallstones are demonstrated. 2. No obstructing ureteral stones or hydronephrosis. 3. No acute bowel pathology demonstrated. Thank you for allowing us to participate in the care of your patient. Dictated and Authenticated by: Satinder Story MD Lab Data Lab results reviewed: Yes I reviewed the patient's lab results. Labs: Laboratory Tests Range/Units 08/20/24 08/20/24 20:10 20:15 WBC (4.4-10.8) 10^3/uL 9.36 RBC (3.93-5.22) 10^6/uL 4.87 Hgb (11.2-15.7) g/dL 13.8 Hct (36.0-46.0) % 41.9 MCV (80-95) fL 86 MCH (27.0-33.0) pg 28.3 MCHC (32.0-36.0) % 32.9 RDW (11.7-14.6) % 13.2 Plt Count (130-400) 10^3/uL 304 MPV (8.0-11.0) fL 9.6 Immature Gran % % 0.2 Neutrophils % % 61.4 Lymphocytes % % 32.5 Monocytes % % 5.2 Eosinophils % % 0.4 Basophils % % 0.3 Nucleated RBC % (0.0-0.3) % 0.0 Absolute Neutrophils (1.2-6.7) 10^3/uL 5.74 Absolute Lymphocytes (1.2-3.4) 10^3/uL 3.04 Absolute Monocytes (0.1-0.8) 10^3/uL 0.49 Absolute Eosinophils (0.0-0.7) 10^3/uL 0.04 Absolute Basophils (0.0-0.2) 10^3/uL 0.03 Sodium (136-145) mmol/L 145 Potassium (3.5-5.1) mmol/L 3.4 L Chloride (98-107) mmol/L 106 Carbon Dioxide (21.0-32.0) mmol/L 28.5 Anion Gap (3-11) mmol/L 10.5 BUN (7-18) mg/dL 11 Creatinine (0.55-1.02) mg/dL 0.8 Est GFR (CKD-EPI 2020) (mL/min/1.73m2) 102.86 Glucose (74-106) mg/dL 118 H Calcium (8.5-10.1) mg/dL 9.2 Total Bilirubin (0.2-1.0) mg/dL 1.1 H AST (15-37) U/L 150 H ALT (14-59) U/L 175 H Alkaline Phosphatase (46-116) U/L 134 H Total Protein (6.4-8.2) g/dL 8.0 Albumin (3.4-5.0) g/dL 3.9 Lipase (<78) U/L 23 Urine Color (Yellow) Yellow Urine Clarity (Clear) Clear Urine pH (5-8) 6.0 Ur Specific [place] (1.005-1.025) >= 1.030 H Urine Protein (Neg-Trace) mg/dL 30 H Urine Ketones (Negative) mg/dL Trace H Urine Blood (Negative) Negative Urine Nitrite (Negative) Negative Urine Bilirubin (Negative) Moderate H Urine Urobilinogen (Up to 0.2) mg/dL 2.0 H Ur Leukocyte Esterase (Negative) Small H Urine RBC (0-2) HPF 0-2 Urine WBC (0-5) HPF 5-10 Ur Epithelial Cells (Negative) HPF Moderate Urine Crystals (Negative) HPF Negative Urine Bacteria (Negative) HPF Few Urine Casts (Negative) LPF Negative Urine Mucus (Negative) Moderate Ur Culture Indicated? No/Sq. 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 Umbilical abnormality (Acute 06/29/16) Insomnia (Acute 07/25/17) Increased BMI (body mass index) (Chronic 08/24/17) Depressive disorder (Chronic 06/21/13) Psychiatric consult 02/23 Chronic midline low back pain without sciatica (Chronic 08/24/17) Attention deficit hyperactivity disorder (Chronic 10/31/12) Medical History Nexplanon in place Original 07/07/21 Replaced 07/30/24 Elevated BP without diagnosis of hypertension Discomfort of right ear Hx of migraines Surgical History Tonsillectomy and adenoidectomy 2002 Patent Ductus Arteriosus closure Family History Father Diabetes Maternal Grandfather , age 41 Brain cancer Mother Depression Brother , born at 5 months No problems noted. Daughter No problems noted. Paternal Grandfather No problems noted. Maternal Grandmother , age 74 Diabetes Heart disease Cervix cancer Stroke Brain cancer Lymph node cancer Paternal Grandmother No problems noted. Social History Smoking/Tobacco Use Status: Current-Occasional Tobacco Type: cigarettes Tobacco: How many years used: 9 Quit status: has quit before Second Hand Exposure: Yes Smoking risk assessment performed?: Yes Alcohol Intake: current Alcohol Intake frequency: holidays/special occasions only Counseling provided: provider counseling Details: Occasional binge drinking - counselled Drug use: Occasionally Substance use type: marijuana Details: smoke Adopted: No Household members: family and other Details: lives with mother. Has supervised visitation with her son. No contact daugh Housing: apartment Number of Children: 2 Do you need help understanding health information?: Never current occupation: Disabled. Pets and animals: Yes Pets and animals: dog(s) Sexually active: Yes Do you think of yourself as: straight/heterosexual Current gender identity: female What is your relationship status?: never How often do you talk on the phone with friends or family?: never How often do you get together with friends or relatives?: once per week How often do you attend islam or orthodox services?: 1-3 times per year Do you belong to any clubs or organized social groups?: no Panel score (0-1 are the most socially isolated patients): 0 Duration: < 15 minutes/day Frequency: 1-2 times per week Evangelina/Congregation: No preference Seatbelt use: sometimes Helmet use: No Drive intox or ride w/intox independent driver: No Do you feel safe at home: Yes Do you feel safe in your relationship?: Yes History History 3 Para 2 Hx # Term Pregnancies 0 Multiple births 0 Hx # Pregnancies 3 Ectopic pregnancies 0 AB induced 0 Hx Number of Living Children 2 AB spontaneous 0 Past Pregnancies Del. Date GA/Weeks # Preg Succ Route Wgt Sex Labor Lgth Anesthesia Location [facility] 07/20/16 34 vaginal 2494.758 g Female [facility] 05/06/18 34 No vaginal 2148.894 g [place] [facility]/06/21 38 No vaginal 2806.603 g Female [facility]ida [facility] Delivery Date: 07/20/16 Last Updated by: Tiff Nicolas PPROM, IOL with Pitocin, pt does not have custody. Delivery Date: 05/06/18 Last Updated by: So Miller M.D. Does not have custody. PAWSS Have you Been Recently Intoxicated or Drunk Within the Last 30 days?: No Have you Ever Experienced Previous Episodes of Alcohol Withdrawal?: No Have you ever Experienced Withdrawal Seizures?: No Have you ever Experienced Delirium Tremens(DT)s?: No Have you ever undergone Alcohol Rehabilitation Treatment (i.e, inpt ot outpatient treatment programs)?: No Have you ever Experienced Blackouts?: No Have you ever Combined Alcohol with other Downers within the last 90 days?: No Have you ever Combined Alcohol with any other Substance of Abuse during the last 90 days?: No Positive Blood Alcohol level on Presentation? [PCS.BAL]: No Evidence of Increased Autonomic Activity (i.e. HR>120, tremor, sweating, agitation, nausea)?: No Result: 0
[2024-08-20 20:21] LABS: Abs Immature Grans 0.02 10^3/uL (0.0-0.06); Absolute Basophil Count 0.03 10^3/uL (0.0-0.2); Absolute Eosinophil Count 0.04 10^3/uL (0.0-0.7); Absolute Lymphocyte Count 3.04 10^3/uL (1.2-3.4); Absolute Monocyte Count 0.49 10^3/uL (0.1-0.8); Absolute Neutrophil Count 5.74 10^3/uL (1.2-6.7); Basophils % 0.3 %; Eosinophils % 0.4 %; HCT 41.9 % (36.0-46.0); HGB 13.8 g/dL (11.2-15.7); Immature Grans % 0.2 %; Lymphocytes % 32.5 %; MCH 28.3 pg (27.0-33.0); MCHC 32.9 % (32.0-36.0); MCV 86 fL (80-95); MPV 9.6 fL (8.0-11.0); Monocytes % 5.2 %; Neutrophils % 61.4 %; Platelet Count 304 10^3/uL (130-400); RBC 4.87 10^6/uL (3.93-5.22); RDW 13.2 % (11.7-14.6); RDW-SD 41.3 fL; WBC 9.36 10^3/uL (4.4-10.8)
[2024-08-20 20:30] LABS: Bilirubin Moderate (Negative); Blood Negative (Negative); Clarity Clear (Clear); Glucose Negative (Negative); Ketones Trace mg/dL (Negative); Leukocyte Esterase Small (Negative); Nitrite Negative (Negative); Specific Gravity >= 1.030 (1.005-1.025)
--- NOTE | 2024-08-20 20:30 | DI.CT_ITS ---
Exam(s) CT ABDOMEN PELVIS W EXAM: CT ABDOMEN PELVIS W CLINICAL HISTORY: Flank pain TECHNIQUE: Imaging Protocol: Axial computed tomography images with coronal and sagittal reformatted images were created and reviewed. CONTRAST MATERIAL: Intravenous: Omnipaque 350 Contrast volume:100 mL Oral: No COMPARISON: No exams were available for comparison FINDINGS: ABDOMEN: Lung Bases: No acute abnormality. Liver: Normal density. No measurable mass. Portal, Superior Mesenteric, and Splenic Veins: Unremarkable. Gallbladder and Biliary Tract: There is no cholelithiasis. The common duct measures up to 8 mm in di ameter. Pancreas: Normal density, no abnormal calcifications or inflammatory process. Spleen: Normal. Adrenals: No masses seen. Kidneys: Normal size, contour and axis. No radiodense stones or obstructive uropathy. No masses seen. Abdominal Aorta: Abdominal portion non-dilated. Bowel: No obstruction or bowel wall thickening. Appendix is unremarkable. Peritoneal Cavity: No ascites, collection or mesenteric inflammatory response. No free air. Lymph Nodes: Within normal limits. Bones: Within normal limits for the patient's age. Soft Tissues: Unremarkable. PELVIS: Bladder: The urinary bladder is incompletely distended but grossly unremarkable. Reproductive Organs: Unremarkable as visualized. Lymph Nodes: Within normal limits. Bones: Within normal limits for the patient's age. IMPRESSION: 1. Mild prominence of the extrahepatic common bile duct. No cholelithiasis. Recommend further evalu ation with gallbladder ultrasound and/or MRCP. 2. Otherwise no acute abdominal or pelvic process. 3. Normal appendix. No evidence of nephrolithiasis or obstructive uropathy. RADIATION DOSE DELIVERED: 925.64mGy.cm Total DLP DATA REPOSITORY: All CT scans at this facility are submitted to the National Radiology Data Registry (NRDR) Dose Index Registry (DIR) with the [employer] (ACR). RADIATION OPTIMIZATION: All CT scans at this facility use at least one of these dose optimization te chniques: automated exposure control; mA and/or kV adjustment per patient size (includes targeted exa ms where dose is matched to clinical indication); or iterative reconstruction.
[2024-08-20] MEDS: Acetaminophen 500 MG TAB 1000 MG PO (20:35)
[2024-08-20 20:37] LABS: ALT 175 U/L (14-59); AST 150 U/L (15-37); Albumin 3.9 g/dL (3.4-5.0); Alkaline Phosphatase 134 U/L (46-116); Anion Gap 10.5 mmol/L (3-11); BUN 11 mg/dL (7-18); Bilirubin, Total 1.1 mg/dL (0.2-1.0); CO2 28.5 mmol/L (21.0-32.0); CREATININE 0.8 mg/dL (0.55-1.02); Calcium 9.2 mg/dL (8.5-10.1); Chloride 106 mmol/L (98-107); Estimated GFR 102.86 (mL/min/1.73m2); Glucose 118 mg/dL (74-106); Potassium 3.4 mmol/L (3.5-5.1); Sodium 145 mmol/L (136-145)
[2024-08-20 20:42] LABS: RBC 0-2 HPF (0-2)
[2024-08-20 20:44] LABS: Bacteria Few HPF (Negative); C & S Indicated? No/Sq. Contamination; Casts Negative LPF (Negative); Crystals Negative HPF (Negative); Epithelial Cells Moderate HPF (Negative); Mucus Moderate (Negative)
[2024-08-20 20:46] LABS: Lipase 23 U/L (<78)
[2024-08-20] MEDS: Omnipaque 350 MG/ML 100 ML BTL IJ (21:14)
[2024-08-20] MEDS: Normal Saline - Diluent 50 ML VIAL IJ (21:15)
[2024-08-20 21:21] VITALS: BP 142/74; PULSE 74; RESP 16; O2SAT 100
--- NOTE | 2024-08-20 21:52 | DI.VRAD_ITS ---
PROCEDURE INFORMATION: Exam: CT Abdomen And Pelvis With Contrast Exam date and time: 08/20/2024 9:05 PM Age: 29 years old Clinical indication: Abdominal pain; Other: Unspecified side; Flank pain TECHNIQUE: Imaging protocol: Computed tomography of the abdomen and pelvis with contrast. COMPARISON: CT LUMBAR SPINE WO 07/17/2024 6:27 PM FINDINGS: Lungs: Lung bases clear. Liver: Normal appearing liver. Gallbladder and biliary ducts: Prominent gallbladder distension. No calcified gallstones. Mild intrahepatic biliary prominence. Common bile duct dilated to 9 mm. Pancreas: Normal appearing pancreas. Spleen: Normal appearing spleen. Adrenal glands: Normal appearing adrenal glands. Kidneys and ureters: Normal appearing kidneys. No hydronephrosis. Stomach and bowel: No oral contrast. Stomach partially decompressed. No small bowel dilatation to suggest obstruction. Normal-appearing colon. No evidence of diverticulitis or colitis. Appendix: Normal appendix. Intraperitoneal space: No gross ascites or free air. Vasculature: Normal caliber abdominal aorta. Lymph nodes: Scattered small mesenteric lymph nodes, nonspecific. Urinary bladder: Urinary bladder collapsed and not well evaluated but grossly unremarkable, as seen. Reproductive: Grossly normal-appearing uterus and ovaries. Bones/joints: No acute fracture seen among the bones of the abdomen or pelvis. Soft tissues: Unremarkable. IMPRESSION: 1. Prominent gallbladder distension. Mild intrahepatic biliary distension. Common bile duct dilated to 9 mm. Clinical correlation is recommended to assess the possibility of acute cholecystitis and/or biliary obstruction. No calcified gallstones are demonstrated. 2. No obstructing ureteral stones or hydronephrosis. 3. No acute bowel pathology demonstrated. Dictated and Authenticated by: Satinder Story MD. Orderin Augustine Wilson MD
--- NOTE | 2024-08-20 23:22 | SCONE_ITS ---
Date of service: 08/20/24 Time of Service: 23:22 Assessment and Plan Assessment and plan (1) Elevated liver transaminase level: Status: Acute Assessment and plan: 29 yo woman with likely gallbladder disease since her ducts are dilated - though her symptoms are somewhat atypical. Happy to admit her for observation and decide in the AM what the best course of action is. She probably passed a gallstone as my best guess . . . doubtful this is cholecystitis. Plan: NPO IVF Abx plan in the AM History of Present Illness Narrative: 29 yo woman reportedly has BILATERAL back pain and vomited yesterday. Unclear if she has had these problems in the past, but chart review suggests maybe. She has had elevated liver enzymes in the past. Today her liver enzyme are slightly elevated and there is dilation of her biliary system. Reportedly no abdominal pain. 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 Has director of casework services Barry Umbilical abnormality (Acute 06/29/16) Insomnia (Acute 07/25/17) Increased BMI (body mass index) (Chronic 08/24/17) Depressive disorder (Chronic 06/21/13) Psychiatric consult 02/23 Chronic midline low back pain without sciatica (Chronic 08/24/17) Attention deficit hyperactivity disorder (Chronic 10/31/12) Medical History Nexplanon in place Original 07/07/21 Replaced 07/30/24 Elevated BP without diagnosis of hypertension Discomfort of right ear Hx of migraines Surgical History Tonsillectomy and adenoidectomy 2002 Patent Ductus Arteriosus closure Family History Father Diabetes Maternal Grandfather , age 41 Brain cancer Mother Depression Brother , born at 5 months No problems noted. Daughter No problems noted. Paternal Grandfather No problems noted. Maternal Grandmother , age 74 Diabetes Heart disease Cervix cancer Stroke Brain cancer Lymph node cancer Paternal Grandmother No problems noted. Social History Smoking/Tobacco Use Status: Current-Occasional Tobacco Type: cigarettes Tobacco: How many years used: 9 Quit status: has quit before Second Hand Exposure: Yes Smoking risk assessment performed?: Yes Alcohol Intake: current Alcohol Intake frequency: holidays/special occasions only Counseling provided: provider counseling Details: Occasional binge drinking - counselled Drug use: Occasionally Substance use type: marijuana Details: smoke Adopted: No Household members: family and other Details: lives with mother. Has supervised visitation with her son. No contact daugh Housing: apartment Number of Children: 2 Do you need help understanding health information?: Never current occupation: Disabled. Pets and animals: Yes Pets and animals: dog(s) Sexually active: Yes Do you think of yourself as: straight/heterosexual Current gender identity: female What is your relationship status?: never How often do you talk on the phone with friends or family?: never How often do you get together with friends or relatives?: once per week How often do you attend mandaeism or hoahaoism services?: 1-3 times per year Do you belong to any clubs or organized social groups?: no Panel score (0-1 are the most socially isolated patients): 0 Duration: < 15 minutes/day Frequency: 1-2 times per week Evangelina/Hindu: No preference Seatbelt use: sometimes Helmet use: No Drive intox or ride w/intox canal driver: No Do you feel safe at home: Yes Do you feel safe in your relationship?: Yes History History 2 3 Para 2 Hx # Term Pregnancies 0 Multiple births 0 Hx # Pregnancies 3 Ectopic pregnancies 0 AB induced 0 Hx Number of Living Children 2 AB spontaneous 0 Past Pregnancies Del. Date GA/Weeks # Preg Succ Route Wgt Sex Labor Lgth Anesth esia Location [facility] 07/20/16 34 vaginal 5 lb 8 oz Female regional [facility] 05/06/18 34 No vaginal 4 lb 11.8 oz Male [facility] 07/06/21 38 No vaginal 6 lb 3 oz Female Candida Fahad Delivery Date: 07/20/16 Last Updated by: Tiff Nicolas PPROM, IOL with Pitocin, pt does not have custody. Delivery Date: 05/06/18 Last Updated by: So Miller M.D. Does not have custody. Exam Narrative Exam Narrative: By report she is not toxic and has a benign abdominal exam. ED provider reports significant pain in her back/flanks. Results Last Vital Signs Temp 99.0 F 08/20/24 19:55 Pulse 74 08/20/24 21:21 Resp 16 08/20/24 21:21 BP 142/74 H 08/20/24 21:21 Pulse Ox 100 08/20/24 21:21 Labs 08/20/24 20:15 08/20/24 20:15 Labs: Laboratory Results - last 24 hr 08/20/24 08/20/24 20:10 20:15 WBC 9.36 RBC 4.87 Hgb 13.8 Hct 41.9 MCV 86 MCH 28.3 MCHC 32.9 RDW 13.2 Plt Count 304 MPV 9.6 Immature Gran % 0.2 Neutrophils % 61.4 Lymphocytes % 32.5 Monocytes % 5.2 Eosinophils % 0.4 Basophils % 0.3 Nucleated RBC % 0.0 Absolute Neutrophils 5.74 Absolute Lymphocytes 3.04 Absolute Monocytes 0.49 Absolute Eosinophils 0.04 Absolute Basophils 0.03 Sodium 145 Potassium 3.4 L Chloride 106 Carbon Dioxide 28.5 Anion Gap 10.5 BUN 11 Creatinine 0.8 Est GFR (CKD-EPI 2020) 102.86 Glucose 118 H Calcium 9.2 Total Bilirubin 1.1 H AST 150 H ALT 175 H Alkaline Phosphatase 134 H Total Protein 8.0 Albumin 3.9 Lipase 23 Urine Color Yellow Urine Clarity Clear Urine pH 6.0 Ur Specific [place] >= 1.030 H Urine Protein 30 H Urine Ketones Trace H Urine Blood Negative Urine Nitrite Negative Urine Bilirubin Moderate H Urine Urobilinogen 2.0 H Ur Leukocyte Esterase Small H Urine RBC 0-2 Urine WBC 5-10 Ur Epithelial Cells Moderate Urine Crystals Negative Urine Bacteria Few Urine Casts Negative Urine Mucus Moderate Ur Culture Indicated? No/Sq. Contamination Urine Glucose Negative
--- NOTE | 2024-08-20 23:36 | W.PC.ACHO ---
Registration Status: Primary Language: Preferred Language: ED Information & Data Chief Complaint Nk/Back Pain 08/20/24 20:16 Triage Note Presented with 03/21 back 08/20/24 19:55 pain which started yesterday . State she was here in the ER yesterday for 4 hours and she got sick of waiting and she left without being seen . Patient state the pain from the lower part of her spine to under her ribcage. State she vomited yesterday in the Er but no more since then. state she has not taken anything to help with the pain in her back Medical / Surgical History (Last Reviewed 08/20/24 @ 20:15 by Katie Bradshaw NP) Nexplanon in place Elevated BP without diagnosis of hypertension Discomfort of right ear Hx of migraines (Last Reviewed 08/20/24 @ 20:15 by Katie Bradshaw NP) Tonsillectomy and adenoidectomy Patent Ductus Arteriosus closure Most Recent Vital Signs Temperature 37.2 C 08/20/24 19:55 Temperature Source Oral 08/20/24 19:55 Pulse 74 08/20/24 21:21 Respiratory Rate 16 08/20/24 21:21 Blood Pressure 142/74 H 08/20/24 21:21 Blood Pressure Mean 96 08/20/24 21:21 Blood Pressure Position Supine 08/20/24 21:21 Pulse Oximetry 100 08/20/24 21:21 Oxygen Delivery Method Room Air 08/20/24 19:55 Oxygen Flow Rate 0 08/20/24 19:55 Pain Level 8 08/20/24 20:26 Allergies No Known Allergies Allergy (Verified 08/20/24 20:03) Active Medications Generic Name Dose Route Start Last Admin Trade Name Andrewq PRN Reason Stop Dose Admin Iohexol 100 ml 08/20/24 21:15 08/20/24 21:14 Omnipaque 350 Mg/Ml 100 Ml Btl IJ 09/19/24 23:59 100 ml DIRECTED PRANAV Administration Sodium Chloride 50 ml 08/20/24 21:15 08/20/24 21:15 Normal Saline - Diluent 50 Ml Vial IJ 50 ml .FOR DI USE PRANAV Administration IV IV Catheter Type [Right Saline Lock Antecubital] IV Catheter Gauge [Right 18 Antecubital] Diet Orders Category Date Time Status Nothing Per Oral [DIET] Nutrition 08/20/24 Dinner Active Diagnostics 08/20/24 08/20/24 Range/Units 20:15 20:10 WBC 9.36 (4.4-10.8) 10^3/uL RBC 4.87 (3.93-5.22) 10^6/uL Hgb 13.8 (11.2-15.7) g/dL Hct 41.9 (36.0-46.0) % MCV 86 (80-95) fL MCH 28.3 (27.0-33.0) pg MCHC 32.9 (32.0-36.0) % RDW 13.2 (11.7-14.6) % Plt Count 304 (130-400) 10^3/uL MPV 9.6 (8.0-11.0) fL Immature Gran % 0.2 % Neutrophils % 61.4 % Lymphocytes % 32.5 % Monocytes % 5.2 % Eosinophils % 0.4 % Basophils % 0.3 % Nucleated RBC % 0.0 (0.0-0.3) % Absolute Neutrophils 5.74 (1.2-6.7) 10^3/uL Absolute Lymphocytes 3.04 (1.2-3.4) 10^3/uL Absolute Monocytes 0.49 (0.1-0.8) 10^3/uL Absolute Eosinophils 0.04 (0.0-0.7) 10^3/uL Absolute Basophils 0.03 (0.0-0.2) 10^3/uL Sodium 145 (136-145) mmol/L Potassium 3.4 L (3.5-5.1) mmol/L Chloride 106 (98-107) mmol/L Carbon Dioxide 28.5 (21.0-32.0) mmol/L Anion Gap 10.5 (3-11) mmol/L BUN 11 (7-18) mg/dL Creatinine 0.8 (0.55-1.02) mg/dL Est GFR (CKD-EPI 2020) 102.86 (mL/min/1.73m2) Glucose 118 H (74-106) mg/dL Calcium 9.2 (8.5-10.1) mg/dL Total Bilirubin 1.1 H (0.2-1.0) mg/dL AST 150 H (15-37) U/L ALT 175 H (14-59) U/L Alkaline Phosphatase 134 H (46-116) U/L Total Protein 8.0 (6.4-8.2) g/dL Albumin 3.9 (3.4-5.0) g/dL Lipase 23 (<78) U/L Urine Color Yellow (Yellow) Urine Clarity Clear (Clear) Urine pH 6.0 (5-8) Ur Specific [place] >= 1.030 H (1.005-1.025) Urine Protein 30 H (Neg-Trace) mg/dL Urine Ketones Trace H (Negative) mg/dL Urine Blood Negative (Negative) Urine Nitrite Negative (Negative) Urine Bilirubin Moderate H (Negative) Urine Urobilinogen 2.0 H (Up to 0.2) mg/dL Ur Leukocyte Esterase Small H (Negative) Urine RBC 0-2 (0-2) HPF Urine WBC 5-10 (0-5) HPF Ur Epithelial Cells Moderate (Negative) HPF Urine Crystals Negative (Negative) HPF Urine Bacteria Few (Negative) HPF Urine Casts Negative (Negative) LPF Urine Mucus Moderate (Negative) Ur Culture Indicated? No/Sq. Contamination Urine Glucose Negative (Negative) mg/dL [id number] Documentation POC Urine Test Start: 08/20/24 20:11 Freq: .Urine Test Status: Active Protocol: Activity Type Activity Date Activity User E-sign Co-sign Detail Recorded Client Recorded Date Recorded By Document 08/20/24 20:24 N.MINERVA [id number] 08/20/24 20:24 N.MINERVA Intake and Output - 24 Hour Total 08/20/24 19:50 thru 08/20/24 19:55 Weight 117.934 kg Falls Risk Assessment History of Falls No History 08/20/24 20:26 Contributing Factors No Factors 08/20/24 20:26 Ambulatory Aids Independent 08/20/24 20:26 Tubes/Lines None 08/20/24 20:26 Gait Evaluation No gait disturbance 08/20/24 20:26 Cognition No cognitive impairment 08/20/24 20:26 Fall Total Score 0 08/20/24 20:26 Level of Risk Standard/Low Risk 08/20/24 20:26 Problems (Last Reviewed 08/20/24 @ 20:15 by Katie Bradshaw NP) Elevated liver transaminase level (Acute) v v v v v v v v v Sending and/or Receiving Nurses: Please use comment section below to note any information pertinent to the patient hand-off not included above. Information / Comments: Pt arrived to ED via EMS for flank pain. Vomited yesterday, however no emesis since. CT poitive for 9mm obstruction in gallbladder. Surg to evaluate in the AM, Tylenol given at 1999. UA done. Pt started on Zosyn, will be NPO at 0000. 18G in RAC. A&Ox3. Report received from: Naresh Bella RN
[2024-08-20 23:41] VITALS: BP 121/67; PULSE 98; RESP 16; TEMP 37.2; O2SAT 97
[2024-08-20 23:54] VITALS: BP 133/89; PULSE 72; RESP 16; TEMP 36.5; O2SAT 98
[2024-08-21 00:01] VITALS: BP 133/89; PULSE 72; RESP 16; TEMP 36.5; O2SAT 98
[2024-08-21] MEDS: Heparin 5,000 UNITS/ML VIAL 5000 UNITS SC ×3 (00:27→15:55)
[2024-08-21] MEDS: MORPHine 2 MG/ML SYR IVP ×3 (00:27→15:56)
[2024-08-21] MEDS: Normal Saline Flush 10 ML SYR IVP ×3 (00:28→20:00)
[2024-08-21] MEDS: Normal Saline 1,000 ML 125 ML IV ×2 (00:28→10:33)
[2024-08-21] MEDS: ACETAMINOPHEN 1,000 MG/100 ML BAG 400 MG IVPB ×3 (01:30→15:55)
[2024-08-21 06:38] LABS: Abs Immature Grans 0.01 10^3/uL (0.0-0.06); Absolute Basophil Count 0.02 10^3/uL (0.0-0.2); Absolute Eosinophil Count 0.08 10^3/uL (0.0-0.7); Absolute Lymphocyte Count 2.47 10^3/uL (1.2-3.4); Absolute Monocyte Count 0.44 10^3/uL (0.1-0.8); Absolute Neutrophil Count 3.25 10^3/uL (1.2-6.7); Basophils % 0.3 %; Eosinophils % 1.3 %; HGB 13.2 g/dL (11.2-15.7); Immature Grans % 0.2 %; Lymphocytes % 39.4 %; MCH 28.4 pg (27.0-33.0); MCV 86 fL (80-95); Neutrophils % 51.8 %; Platelet Count 243 10^3/uL (130-400); RBC 4.64 10^6/uL (3.93-5.22); RDW 13.4 % (11.7-14.6); RDW-SD 41.5 fL; WBC 6.27 10^3/uL (4.4-10.8)
[2024-08-21 07:00] LABS: ALT 226 U/L (14-59); AST 205 U/L (15-37); Albumin 3.6 g/dL (3.4-5.0); Alkaline Phosphatase 132 U/L (46-116); Anion Gap 9.3 mmol/L (3-11); BUN 9 mg/dL (7-18); Bilirubin, Total 1.3 mg/dL (0.2-1.0); CO2 25.7 mmol/L (21.0-32.0); CREATININE 0.9 mg/dL (0.55-1.02); Calcium 8.7 mg/dL (8.5-10.1); Chloride 107 mmol/L (98-107); Glucose 107 mg/dL (74-106); Potassium 3.3 mmol/L (3.5-5.1); Sodium 142 mmol/L (136-145); Total Protein 7.4 g/dL (6.4-8.2)
[2024-08-21 07:45] VITALS: BP 139/84; PULSE 75; RESP 18; O2SAT 95
--- NOTE | 2024-08-21 09:16 | INITIAL_ITS ---
Date of service: 08/21/24 Time of Service: 09:16 Care Management Initial Assmt Initial Assessment Reason for Hospitalization: back pain and elevated LFTs Functional Status/Living Situation Patient Presentation: Aruna was lying in bed visiting with her boyfriend and another male friend. She was very loud and aggressive with her speech to the point the staff called security to wait outside of the room. Aruna found that amusing and informed CM that she is verbally aggressive but not physical. Her boyfriend stated that he is the one that is physically aggressive. Aruna was complaining that everyone and everything is moving too slowly for her. She loudly stated I want this thing out now! When asked what she was referring to, it sounded like she believed she had a gallstone and that she would be having surgery. At that point there was no indication in her record that surgery was planned for today. She was admitted with elevated bilirubin and LFTs and her initial imaging suggested the possibility of acute cholecystitis. Aruna did have an MRI this afternoon but the results are not available as yet. Aruna lives alone in an apartment in [facility]. She has a boyfriend and her mother for support. Aruna has 3 children ages 8, 6 and 3 however none of them live with her. She was reluctant to answer questions about them but her boyfriend indicated that they were with different family members and that she does not see them as often as she would like. Aruna is disabled and is followed by [facility]. Town of Residence: [place] [facility] Resides with: Alone Significant Other/Family: [facility] Employment Status: Disabled Instrumental Activities of Daily Living (ADLs): Independent Medications Medication Management: No Issues/Barriers identified Advance Directives Advance Directives: Do you have an Advance Directive: N 10/04/23 09:19 AD On File at [facility]: N 10/04/23 09:19 Date Asked 08/20/24 08/20/24 19:58 AD Date Reviewed COLST On File at [facility] COLST Date Scanned Code Status Resuscitation Status Full Code Insurance Coverage/Financial Issues Insurance: Medicaid Care Team Visit Care Team Role Provider Type Kristopher Alan NP Primary Care Provider NURSE PRACTITIONER Katie Bradshaw NP Emergency Provider NURSE PRACTITIONER Gume Saleem MD Admit Provider [facility] STAFF PHYSICIAN Attending Provider Discharge Potential Discharge Needs: PCP F/U Appt Anticipated Barriers to Discharge: None Identified Patient/Family Education Needs: Review discharge instructions, discuss Ask Me Three Transportation: Private vehicle Plan: Anticipate Aruna will be discharged home with no new services. She will follow up with her PCP and plan of care and transport with family vs RCT. CM will follow and continue to assess for discharge needs. 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 Has rehabilitation caseworker Barry Umbilical abnormality (Acute 06/29/16) Insomnia (Acute 07/25/17) Increased BMI (body mass index) (Chronic 08/24/17) Depressive disorder (Chronic 06/21/13) Psychiatric consult 02/23 Chronic midline low back pain without sciatica (Chronic 08/24/17) Attention deficit hyperactivity disorder (Chronic 10/31/12) Medical History Nexplanon in place Original 07/07/21 Replaced 07/30/24 Elevated BP without diagnosis of hypertension Discomfort of right ear Hx of migraines Surgical History Tonsillectomy and adenoidectomy 2002 Patent Ductus Arteriosus closure Family History Father Diabetes Maternal Grandfather , age 41 Brain cancer Mother Depression Brother , born at 5 months No problems noted. Daughter No problems noted. Paternal Grandfather No problems noted. Maternal Grandmother , age 74 Diabetes Heart disease Cervix cancer Stroke Brain cancer Lymph node cancer Paternal Grandmother No problems noted. Social History Smoking/Tobacco Use Status: Current-Occasional Tobacco Type: cigarettes Tobacco: How many years used: 9 Quit status: has quit before Second Hand Exposure: Yes Smoking risk assessment performed?: Yes Alcohol Intake: current Alcohol Intake frequency: holidays/special occasions only Counseling provided: provider counseling Details: Occasional binge drinking - counselled Drug use: Occasionally Substance use type: marijuana Details: smoke Adopted: No Household members: family and other Details: lives with mother. Has supervised visitation with her son. No contact daugh Housing: apartment Number of Children: 2 Do you need help understanding health information?: Never current occupation: Disabled. Pets and animals: Yes Pets and animals: dog(s) Sexually active: Yes Do you think of yourself as: straight/heterosexual Current gender identity: female What is your relationship status?: never How often do you talk on the phone with friends or family?: never How often do you get together with friends or relatives?: once per week How often do you attend gnosticist or jewish services?: 1-3 times per year Do you belong to any clubs or organized social groups?: no Panel score (0-1 are the most socially isolated patients): 0 Duration: < 15 minutes/day Frequency: 1-2 times per week Evangelina/Mu-Ism: No preference Seatbelt use: sometimes Helmet use: No Drive intox or ride w/intox mixer driver: No Do you feel safe at home: Yes Do you feel safe in your relationship?: Yes History History 3 Para 2 Hx # Term Pregnancies 0 Multiple births 0 Hx # Pregnancies 3 Ectopic pregnancies 0 AB induced 0 Hx Number of Living Children 2 AB spontaneous 0 Past Pregnancies Del. Date GA/Weeks # Preg Succ Route Wgt Sex Labor Lgth Anesth esia Location [facility] 07/20/16 34 vaginal 2494.758 g Female [facility] 05/06/18 34 No vaginal 2148.894 g Male [facility] 07/06/21 38 No vaginal 2806.603 g Female Candida Vásquez Delivery Date: 07/20/16 Last Updated by: Tiff Nicolas PPROM, IOL with Pitocin, pt does not have custody. Delivery Date: 05/06/18 Last Updated by: So Miller M.D. Does not have custody.
[2024-08-21] MEDS: Sertraline 100 MG TAB 150 MG PO (11:57)
[2024-08-21] MEDS: ARIPiprazole 2 MG TAB PO ×2 (11:57→20:38)
--- NOTE | 2024-08-21 12:36 | PHA.REVIEW2 ---
Pharmacy Admission Review Admission Clinical Review Admission Pharmacy Review: Elevated liver transaminase level (Acute) No Known Allergies Allergy (Verified 08/20/24 20:03) Resuscitation Status Full Code Height 5 ft 3 in Weight 117.934 kg Pharmacy Admission Review Renal Dosing Renal Dosing: BUN 9 mg/dL (7-18) 08/21/24 05:50 Creatinine 0.9 mg/dL (0.55-1.02) 08/21/24 05:50 Medications needing adjustments: Reviewed (CrCl 115.49 mL/min) List of meds needing interventions: Current medications are okay Anticoagulation Anticoagulation: Hgb 13.2 g/dL (11.2-15.7) 08/21/24 05:50 Hct 40.0 % (36.0-46.0) 08/21/24 05:50 Plt Count 243 10^3/uL (130-400) 08/21/24 05:50 Creatinine 0.9 mg/dL (0.55-1.02) 08/21/24 05:50 DVT Prophylaxis: Reviewed Medications: Heparin (q8h) Opiate Usage Evaluate Pain Scale/Pains Meds: Reviewed (morphine 2mg IV q1h PRN - 2mg / 24hrs, Pain level 10 at 0745) Scheduled Bowel Reg ordered if on Opiates?: No Relevant Labs Relevant Labs: Sodium 142 mmol/L (136-145) 08/21/24 05:50 Potassium 3.3 mmol/L (3.5-5.1) L 08/21/24 05:50 Chloride 107 mmol/L (98-107) 08/21/24 05:50 Electrolytes, C-Reactive P, ESR: Reviewed (K 3.3, AST/ALT increased from 150/175 to 205/226) Cardiac Review BP, HR, EF%: Reviewed (HR and BP WNL) QTc Review QTc: Reviewed (453 from 06/19/24 - most recent EKG on file) IV to PO Switch IV Medications: Reviewed (acetaminophen, morphine, ondansetron and Zosyn) Home Meds Home Med List reviewed: Intervened Relevent Home Meds Not ordered & why?: Advair (changed to Symbicort per pharmacy protocol), ibuprofen (PRN), loratadine, trazodone, hydroxyzine and guanfacine Home meds were brought in for patient, added the following to home med list: trazodone, hydroxyzine and guanfacine. Reached out to provider to make sure they were aware of the changes. Waiting to hear back. Current Meds Current Medication Order Review: Intervened Comments: Added IV access order Pharmacy Antibiotic Review Relevant Labs: WBC 6.27 10^3/uL (4.4-10.8) 08/21/24 05:50 Pharmacy Antibiotic Activity: C/S review and Reviewed, no change Comments: Patient is on Zosyn, day 1, for gallbladder distension. No cultures pending.
--- NOTE | 2024-08-21 14:55 | DI.MRI_ITS ---
Exam(s) MR ABDOMEN WO EXAM: MR ABDOMEN WO CLINICAL HISTORY: Rule out choledocholithiasis TECHNIQUE: Multiplanar multisequence MRI/MRCP was performed on a 1.5 velma unit. COMPARISON: CT CT ABDOMEN PELVIS W from 08/20/2024 FINDINGS: VISUALIZED LUNG BASES: No pleural effusions evident. There is no ascites evident. LIVER: There is mild dilatation of intrahepatic ducts. There are no focal hepatic lesions of concern evident. Liver size is normal. BILIARY/MRCP: The gallbladder is somewhat distended but not edematous. There appears to be a tiny ca lculus in the gallbladder fundus region. The CBD diameter is slightly prominent, measuring 8 mm at t he level the common hepatic duct and 7.5 mm at the level the common bile duct. Although there are n o obvious calculi seen within the CBD on the MRCP images, on the axial T2 images there is a suggestio n of a small 2.7 mm calculus in the lower CBD at the pancreatic head level. PANCREAS: There is no evidence of pancreatic mass nor dilatation of the pancreatic duct.Pancreatic du ct diameter is upper normal. No obvious evidence of pancreatitis. SPLEEN: Spleen is not enlarged and there are no intrasplenic lesions. ADRENALS: There is a tiny cyst in the medial limb of the right adrenal gland measuring 4 by 5 mm. No significant focal findings in the left adrenal gland. KIDNEYS: No solid renal masses. No hydronephrosis.No cysts evident. ABDOMINAL AORTA: Not enlarged and there is no significant para-aortic adenopathy. ANTERIOR ABDOMINAL WALL/GI: There is no evidence of significant anterior abdominal wall hernia in the field of view of this study.Is no evidence of obvious bowel obstruction. OSSEOUS: There are no lytic osseous lesions in the field of view of this study. IMPRESSION: 1. There is some dilatation of the biliary tree, both intra and extrahepatic. The gallbladder is mod erately distended but not edematous and there is also no pericholecystic fluid. However, there appea rs to be a tiny calculus in the fundus of the gallbladder and on the T2 axial images there is a subtl e suggestion of a small 2.7 mm Calculus in the lower CBD. This is better seen on the axial T2 images when compared to the MRCP imag es. Correlation with clinical findings and blood work recommended. 2. Pancreatic duct diameter is upper normal. There is no evidence of pancreatic mass nor evidence of pancreatitis 3. Tiny 4-5 mm cyst incidentally noted in the right adrenal gland. DATA REPOSITORY:
[2024-08-21 15:09] VITALS: BP 135/90; PULSE 74; RESP 16; TEMP 36.7; O2SAT 97
--- NOTE | 2024-08-21 20:01 | W.PM.PROGNOT ---
Date of Service Date of service: 08/21/24 Time of Service: 20:01 Assessment and Plan Assessment and plan (1) Choledocholithiasis: Status: Acute Assessment and plan: I explained to Aruna that the MRCP showed signs of a stone in the common bile duct, and I suspect that is what is causing her back pain, and her abnormal liver function test. Ideally, the duct would be cleared with ERCP, however am having difficulty finding a utility worker driver who can accommodate her. [facility] declined because of their schedule, and [facility] prefers that I call back tomorrow. I will continue to try some other hospitals nearby to see if they can be of any assistance. I explained that certainly, she should undergo cholecystectomy at some point, but it would be ideal if we could clear the duct prior to that. I will repeat the liver function test tomorrow, and see if there are any signs that the stone has passed on its own. If that is not the case, then we need to give stronger consideration to cholecystectomy with cholangiography and reevaluate the duct thereafter. Subjective Subjective Interval history since last seen: Aruna continues to complain of pain in her back. She is a bit disengaged from my conversation with her regarding her symptoms, and it is a little challenging to get any other history, but she certainly denies any abdominal pain, or discomfort in the right upper quadrant. Exam GI Other: Her abdomen is soft, and not at all tender. Objective Last Vital Signs Temp 98.1 F 08/21/24 15:09 Pulse 74 08/21/24 15:09 Resp 16 08/21/24 15:09 BP 135/90 08/21/24 15:09 Pulse Ox 97 08/21/24 15:09 Laboratory Results - last 24 hr 08/20/24 08/20/24 08/21/24 20:10 20:15 05:50 WBC 9.36 6.27 RBC 4.87 4.64 Hgb 13.8 13.2 Hct 41.9 40.0 MCV 86 86 MCH 28.3 28.4 MCHC 32.9 33.0 RDW 13.2 13.4 Plt Count 304 243 MPV 9.6 10.0 Immature Gran % 0.2 0.2 Neutrophils % 61.4 51.8 Lymphocytes % 32.5 39.4 Monocytes % 5.2 7.0 Eosinophils % 0.4 1.3 Basophils % 0.3 0.3 Nucleated RBC % 0.0 0.0 Absolute Neutrophils 5.74 3.25 Absolute Lymphocytes 3.04 2.47 Absolute Monocytes 0.49 0.44 Absolute Eosinophils 0.04 0.08 Absolute Basophils 0.03 0.02 Sodium 145 142 Potassium 3.4 L 3.3 L Chloride 106 107 Carbon Dioxide 28.5 25.7 Anion Gap 10.5 9.3 BUN 11 9 Creatinine 0.8 0.9 Est GFR (CKD-EPI 2020) 102.86 89.30 Glucose 118 H 107 H Calcium 9.2 8.7 Total Bilirubin 1.1 H 1.3 H AST 150 H 205 H ALT 175 H 226 H Alkaline Phosphatase 134 H 132 H Total Protein 8.0 7.4 Albumin 3.9 3.6 Lipase 23 Urine Color Yellow Urine Clarity Clear Urine pH 6.0 Ur Specific [place] >= 1.030 H Urine Protein 30 H Urine Ketones Trace H Urine Blood Negative Urine Nitrite Negative Urine Bilirubin Moderate H Urine Urobilinogen 2.0 H Ur Leukocyte Esterase Small H Urine RBC 0-2 Urine WBC 5-10 Ur Epithelial Cells Moderate Urine Crystals Negative Urine Bacteria Few Urine Casts Negative Urine Mucus Moderate Ur Culture Indicated? No/Sq. Contamination Urine Glucose Negative PAWSS Have you Been Recently Intoxicated or Drunk Within the Last 30 days?: No Have you Ever Experienced Previous Episodes of Alcohol Withdrawal?: No Have you ever Experienced Withdrawal Seizures?: No Have you ever Experienced Delirium Tremens(DT)s?: No Have you ever undergone Alcohol Rehabilitation Treatment (i.e, inpt ot outpatient treatment programs)?: No Have you ever Experienced Blackouts?: No Have you ever Combined Alcohol with other Downers within the last 90 days?: No Have you ever Combined Alcohol with any other Substance of Abuse during the last 90 days?: No Positive Blood Alcohol level on Presentation? [PCS.BAL]: No Evidence of Increased Autonomic Activity (i.e. HR>120, tremor, sweating, agitation, nausea)?: No Result: 0 Time Spent with Patient Time Spent with Patient: >50 minutes Time was spent: preparing to see the patient(eg.review tests), ordering medications,tests, procedures, referring, communicating with other health lawn care specialist, indepentently interpreting results, counseling the patient and care coordination
[2024-08-21 20:04] VITALS: BP 129/87; PULSE 68; RESP 19; TEMP 36; O2SAT 97
[2024-08-21] MEDS: Acetaminophen 500 MG TAB 1000 MG PO (20:38)
[2024-08-22] MEDS: Heparin 5,000 UNITS/ML VIAL 5000 UNITS SC ×3 (00:38→20:20)
[2024-08-22 06:25] LABS: Abs Immature Grans 0.02 10^3/uL (0.0-0.06); Absolute Basophil Count 0.03 10^3/uL (0.0-0.2); Absolute Eosinophil Count 0.09 10^3/uL (0.0-0.7); Absolute Lymphocyte Count 1.88 10^3/uL (1.2-3.4); Absolute Monocyte Count 0.33 10^3/uL (0.1-0.8); Absolute Neutrophil Count 3.26 10^3/uL (1.2-6.7); Basophils % 0.5 %; Eosinophils % 1.6 %; HCT 40.3 % (36.0-46.0); HGB 13.5 g/dL (11.2-15.7); Immature Grans % 0.4 %; Lymphocytes % 33.5 %; MCH 28.8 pg (27.0-33.0); MCHC 33.5 % (32.0-36.0); MCV 86 fL (80-95); MPV 9.6 fL (8.0-11.0); Monocytes % 5.9 %; Neutrophils % 58.1 %; Platelet Count 229 10^3/uL (130-400); RBC 4.69 10^6/uL (3.93-5.22); RDW 13.2 % (11.7-14.6); RDW-SD 40.9 fL; WBC 5.61 10^3/uL (4.4-10.8)
[2024-08-22 06:51] LABS: ALT 239 U/L (14-59); AST 130 U/L (15-37); Albumin 3.7 g/dL (3.4-5.0); Alkaline Phosphatase 131 U/L (46-116); Bilirubin, Direct 1.4 mg/dL (0.0-0.2); Bilirubin, Total 2.3 mg/dL (0.2-1.0); Lipase 19 U/L (<78); Total Protein 7.6 g/dL (6.4-8.2)
[2024-08-22 07:42] VITALS: BP 125/88; PULSE 74; RESP 17; TEMP 36.8; O2SAT 100
[2024-08-22] MEDS: Budesonide/Formoterol 160/4.5 6 GM 60 PUFF INH IH ×2 (08:25→20:19)
[2024-08-22] MEDS: Sertraline 100 MG TAB 150 MG PO (08:47)
[2024-08-22] MEDS: Normal Saline Flush 10 ML SYR IVP ×3 (08:47→20:21)
[2024-08-22] MEDS: MORPHine 2 MG/ML SYR IVP (09:04)
--- NOTE | 2024-08-22 09:30 | CMPROGNOTE_ITS ---
Date of service: 08/22/24 Time of Service: 09:30 Care Management Progress Note Progress Note Text Progress Note Text: Aruna was transferred to [facility] for a down and back ERCP today. It is anticipated that she will not return until this evening. Aruna had an MRCP yesterday which showed a stone in the common bile duct. Per the surgeon, this is likely the source of her back pain and elevated LFTs. It is anticipated that the ERCP will clear the stone. Aruna left before CM was able to meet with her today. CM will follow. Discharge Potential Discharge Needs: Surgical F/U Appt Anticipated Barriers to Discharge: Treatment delay (needs ERCP can't find facility to take her) Patient/Family Education Needs: Review discharge instructions, discuss Ask Me Three Transportation: Private vehicle Plan: Anticipate rAuna will be discharged home with no new services. She will follow up with her surgeon, PCP and plan of care and transport with a friend. CM will continue to assess for discharge needs. Social Determinants of Health Screening Will the Patient Participate in the Screening?: Declined to provide
--- NOTE | 2024-08-22 10:58 | NUR.NOTE ---
Nursing Note: Nursing walked in and pt was attempting to shut off her IV pump. Discussed the danger of doing this with her. She denied doing it.
--- NOTE | 2024-08-22 11:39 | NUR.NOTE ---
Nursing Note: Per Dr. Chan, made pt NPO to go to [facility] for ERCP, down and back. Transport being set up now. Pt has no fluids running, no oxygen, no cardiac monitoring. [facility] Endoscopy #[phone], construction scheduler [phone]. Will notify construction scheduler when transport has been verified.
--- NOTE | 2024-08-22 13:18 | NUR.NOTE ---
Nursing Note: Calex here to npick upn pt, report given, down and back to [facility] [place].
--- NOTE | 2024-08-22 13:26 | W.PC.ACHO ---
Registration Status: Primary Language: Preferred Language: ED Information & Data Chief Complaint Nk/Back Pain 08/20/24 20:16 Triage Note Presented with 03/21 back 08/20/24 19:55 pain which started yesterday . State she was here in the ER yesterday for 4 hours and she got sick of waiting and she left without being seen . Patient state the pain from the lower part of her spine to under her ribcage. State she vomited yesterday in the Er but no more since then. state she has not taken anything to help with the pain in her back Medical / Surgical History (Last Reviewed 08/20/24 @ 20:15 by Katie Bradshaw NP) Nexplanon in place Elevated BP without diagnosis of hypertension Discomfort of right ear Hx of migraines (Last Reviewed 08/20/24 @ 20:15 by Katie Bradshaw NP) Tonsillectomy and adenoidectomy Patent Ductus Arteriosus closure Most Recent Vital Signs Temperature 36.8 C 08/22/24 07:42 Temperature Source Tympanic 08/22/24 07:42 Pulse 74 08/22/24 07:42 Pulse Rhythm Regular 08/20/24 23:54 Respiratory Rate 17 08/22/24 07:42 Respiratory Effort Normal, Non-Labored 08/20/24 23:54 Respiratory Depth Normal 08/20/24 23:54 Respiratory Pattern Normal 08/20/24 23:54 Blood Pressure 125/88 08/22/24 07:42 Blood Pressure Mean 96 08/20/24 21:21 Blood Pressure Position Supine 08/20/24 21:21 Pulse Oximetry 100 08/22/24 07:42 Oxygen Delivery Method Room Air 08/22/24 07:42 Oxygen Flow Rate 0 08/22/24 07:42 Pain Level 4 08/22/24 09:43 Allergies No Known Allergies Allergy (Verified 08/20/24 20:03) Active Medications Generic Name Dose Route Start Last Admin Trade Name Freq PRN Reason Stop Dose Admin Acetaminophen 1,000 mg 08/21/24 19:57 08/21/24 20:38 Acetaminophen 500 Mg Tab PO 1,000 mg Q6H PRN PRN Administration Aripiprazole 2 mg 08/21/24 20:00 08/21/24 20:38 Aripiprazole 2 Mg Tab PO 2 mg HS PRANAV Administration Budesonide/Formoterol Fumarate 2 puff 08/21/24 20:00 08/22/24 08:25 Budesonide/Formoterol 160/4.5 6 Gm 60 Puff Inh IH 2 puff BID PRANAV Administration Heparin Sodium (Porcine) 5,000 units 08/21/24 08:00 08/22/24 08:51 Heparin 5,000 Units/Ml Vial SC 5,000 units Q8H PRANAV Administration Sodium Chloride 1,000 mls @ 125 mls/hr 08/20/24 23:30 08/21/24 18:30 Saline 1000ml Bag IV Infused INFUSION PRANAV Infusion Morphine Sulfate 2 mg 08/20/24 23:16 08/22/24 09:04 Morphine 2 Mg/Ml Syr IVP 2 mg Q1H PRN PRN Administration Sertraline HCl 150 mg 08/21/24 11:00 08/22/24 08:47 Sertraline 100 Mg Tab PO 150 mg DAILY PRANAV Administration Sodium Chloride 0 ml 08/20/24 22:35 08/22/24 09:05 Normal Saline Flush 10 Ml Syr IVP 10 ml PRN PRN Administration Sodium Chloride 0 ml 08/21/24 08:30 08/22/24 08:47 Normal Saline Flush 10 Ml Syr IVP 10 ml BID PRANAV Administration IV IV Catheter Type [Right Saline Lock Antecubital] IV Catheter Gauge [Right 18 Antecubital] Diagnostics 08/22/24 08/22/24 Range/Units Unknown 06:10 WBC Cancelled 5.61 (4.4-10.8) 10^3/uL RBC Cancelled 4.69 (3.93-5.22) 10^6/uL Hgb Cancelled 13.5 (11.2-15.7) g/dL Hct Cancelled 40.3 (36.0-46.0) % MCV Cancelled 86 (80-95) fL MCH Cancelled 28.8 (27.0-33.0) pg MCHC Cancelled 33.5 (32.0-36.0) % RDW Cancelled 13.2 (11.7-14.6) % Plt Count Cancelled 229 (130-400) 10^3/uL MPV Cancelled 9.6 (8.0-11.0) fL Immature Gran % 0.4 % Neutrophils % 58.1 % Lymphocytes % 33.5 % Monocytes % 5.9 % Eosinophils % 1.6 % Basophils % 0.5 % Nucleated RBC % 0.0 (0.0-0.3) % Absolute Neutrophils 3.26 (1.2-6.7) 10^3/uL Absolute Lymphocytes 1.88 (1.2-3.4) 10^3/uL Absolute Monocytes 0.33 (0.1-0.8) 10^3/uL Absolute Eosinophils 0.09 (0.0-0.7) 10^3/uL Absolute Basophils 0.03 (0.0-0.2) 10^3/uL Total Bilirubin 2.3 H (0.2-1.0) mg/dL Conjugated Bilirubin 1.4 H (0.0-0.2) mg/dL AST 130 H (15-37) U/L ALT 239 H (14-59) U/L Alkaline Phosphatase 131 H (46-116) U/L Total Protein 7.6 (6.4-8.2) g/dL Albumin 3.7 (3.4-5.0) g/dL Lipase 19 (<78) U/L [id number] Documentation POC Urine Test Start: 08/20/24 20:11 Freq: .Urine Test Status: Complete Protocol: Activity Type Activity Date Activity User E-sign Co-sign Detail Recorded Client Recorded Date Recorded By Document 08/20/24 20:24 MARITA [id number] 08/20/24 20:24 MARITA Intake and Output - 24 Hour Total 08/20/24 19:50 thru 08/22/24 12:02 Intake Total 3680 Output Total 1100 Balance 2580 Weight 117.934 kg Intake: IV 2800 Oral 880 Output: Urine 1100 Other: Urine Color Light Karissa Urine Appearance Clear Urine Odor None Comment patient stated that they used the bathroom. Falls Risk Assessment History of Falls No History 08/20/24 23:54 Contributing Factors No Factors 08/20/24 23:54 Ambulatory Aids Independent 08/20/24 23:54 Tubes/Lines None 08/20/24 23:54 Gait Evaluation No gait disturbance 08/20/24 23:54 Cognition No cognitive impairment 08/20/24 23:54 Fall Total Score 0 08/20/24 23:54 Level of Risk Standard/Low Risk 08/20/24 23:54 Problems (Last Reviewed 08/20/24 @ 20:15 by Katie Bradshaw NP) Choledocholithiasis (Acute) Elevated liver transaminase level (Acute) Notes 08/22/24 13:18 Nursing Notes by Thu Mcdaniel Nursing Note: Calex here to npick upn pt, report given, [place] [facility] [place] Initialized on 08/22/24 13:18 - END OF NOTE 08/22/24 11:39 Nursing Notes by Thu Mcdaniel Nursing Note: Per Dr. Chan, made pt NPO to go [place] [facility] [place], [place] and back. Transport being set up now. Pt has no fluids running, no oxygen, no cardiac monitoring. [facility] [place] #[phone], surgical scheduler [phone]. Will notify surgical scheduler when transport has been verified. Initialized on 08/22/24 11:39 - END OF NOTE 08/22/24 10:58 Nursing Notes by Thu Mcdaniel Nursing Note: Nursing walked in and pt was attempting to shut off her IV pump. Discussed the danger of doing this with her. She denied doing it. Initialized on 08/22/24 10:58 - END OF NOTE v v v v v v v v v Sending and/or Receiving Nurses: Please use comment section below to note any information pertinent to the patient hand-off not included above. Information / Comments: Report received from: Gave report to [facility].
--- NOTE | 2024-08-22 14:48 | CHAPLAIN ---
Aruna was sitting up in bed when I visited. Her boyfriend and another male friend were with her. Her boyfriend said they were just talking about account maintenance representative and joked about wanting to get in the hospital. Aruna said she didn't want to do that. I explained my role and offered support.
--- NOTE | 2024-08-22 18:19 | W.PM.PROGNOT ---
Date of Service Date of service: 08/23/24 Time of Service: 18:19 Assessment and Plan Assessment and plan (1) Choledocholithiasis: Status: Acute Assessment and plan: After multiple phone calls to [facility], [facility], was able to secure a down and back procedure at [facility] for an ERCP for her choledocholithiasis. She was able to travel down today, and underwent ERCP with stone retrieval, and with stenting of the pancreatic duct. She is considered high risk for postprocedural pancreatitis, so we will be reassessing her abdominal and back pain through tomorrow. I will advance her diet a little bit tonight and see how she tolerates that. Subjective Subjective Interval history since last seen: Aruna continues to complain of pain mostly through her back this morning. She is hungry. She wants to eat. Exam GI Other: Abdomen remains soft and nontender. She is not distended. Objective Last Vital Signs Temp 98.2 F 08/22/24 07:42 Pulse 74 08/22/24 07:42 Resp 17 08/22/24 07:42 BP 125/88 08/22/24 07:42 Pulse Ox 100 08/22/24 07:42 Laboratory Results - last 24 hr 08/22/24 08/22/24 06:10 Unknown WBC 5.61 Cancelled RBC 4.69 Cancelled Hgb 13.5 Cancelled Hct 40.3 Cancelled MCV 86 Cancelled MCH 28.8 Cancelled MCHC 33.5 Cancelled RDW 13.2 Cancelled Plt Count 229 Cancelled MPV 9.6 Cancelled Immature Gran % 0.4 Neutrophils % 58.1 Lymphocytes % 33.5 Monocytes % 5.9 Eosinophils % 1.6 Basophils % 0.5 Nucleated RBC % 0.0 Absolute Neutrophils 3.26 Absolute Lymphocytes 1.88 Absolute Monocytes 0.33 Absolute Eosinophils 0.09 Absolute Basophils 0.03 Total Bilirubin 2.3 H Conjugated Bilirubin 1.4 H AST 130 H ALT 239 H Alkaline Phosphatase 131 H Total Protein 7.6 Albumin 3.7 Lipase 19 PAWSS Have you Been Recently Intoxicated or Drunk Within the Last 30 days?: No Have you Ever Experienced Previous Episodes of Alcohol Withdrawal?: No Have you ever Experienced Withdrawal Seizures?: No Have you ever Experienced Delirium Tremens(DT)s?: No Have you ever undergone Alcohol Rehabilitation Treatment (i.e, inpt ot outpatient treatment programs)?: No Have you ever Experienced Blackouts?: No Have you ever Combined Alcohol with other Downers within the last 90 days?: No Have you ever Combined Alcohol with any other Substance of Abuse during the last 90 days?: No Positive Blood Alcohol level on Presentation? [PCS.BAL]: No Evidence of Increased Autonomic Activity (i.e. HR>120, tremor, sweating, agitation, nausea)?: No Result: 0 Time Spent with Patient Time Spent with Patient: >50 minutes Time was spent: preparing to see the patient(eg.review tests), referring, communicating with other health careers adviser, counseling the patient and care coordination
--- NOTE | 2024-08-22 18:21 | W.PC.ACHO ---
Registration Status: Primary Language: Preferred Language: ED Information & Data Chief Complaint Nk/Back Pain 08/20/24 20:16 Triage Note Presented with 03/21 back 08/20/24 19:55 pain which started yesterday . State she was here in the ER yesterday for 4 hours and she got sick of waiting and she left without being seen . Patient state the pain from the lower part of her spine to under her ribcage. State she vomited yesterday in the Er but no more since then. state she has not taken anything to help with the pain in her back Medical / Surgical History (Last Reviewed 08/20/24 @ 20:15 by Katie Bradshaw NP) Nexplanon in place Elevated BP without diagnosis of hypertension Discomfort of right ear Hx of migraines (Last Reviewed 08/20/24 @ 20:15 by Katie Bradshaw NP) Tonsillectomy and adenoidectomy Patent Ductus Arteriosus closure Most Recent Vital Signs Temperature 36.8 C 08/22/24 07:42 Temperature Source Tympanic 08/22/24 07:42 Pulse 74 08/22/24 07:42 Pulse Rhythm Regular 08/20/24 23:54 Respiratory Rate 17 08/22/24 07:42 Respiratory Effort Normal, Non-Labored 08/20/24 23:54 Respiratory Depth Normal 08/20/24 23:54 Respiratory Pattern Normal 08/20/24 23:54 Blood Pressure 125/88 08/22/24 07:42 Blood Pressure Mean 96 08/20/24 21:21 Blood Pressure Position Supine 08/20/24 21:21 Pulse Oximetry 100 08/22/24 07:42 Oxygen Delivery Method Room Air 08/22/24 07:42 Oxygen Flow Rate 0 08/22/24 07:42 Pain Level 4 08/22/24 09:43 Allergies No Known Allergies Allergy (Verified 08/20/24 20:03) Active Medications Generic Name Dose Route Start Last Admin Trade Name Freq PRN Reason Stop Dose Admin Acetaminophen 1,000 mg 08/21/24 19:57 08/21/24 20:38 Acetaminophen 500 Mg Tab PO 1,000 mg Q6H PRN PRN Administration Aripiprazole 2 mg 08/21/24 20:00 08/21/24 20:38 Aripiprazole 2 Mg Tab PO 2 mg HS PRANAV Administration Budesonide/Formoterol Fumarate 2 puff 08/21/24 20:00 08/22/24 08:25 Budesonide/Formoterol 160/4.5 6 Gm 60 Puff Inh IH 2 puff BID PRANAV Administration Sodium Chloride 1,000 mls @ 125 mls/hr 08/20/24 23:30 08/21/24 18:30 Saline 1000ml Bag IV Infused INFUSION PRANAV Infusion Morphine Sulfate 2 mg 08/20/24 23:16 08/22/24 09:04 Morphine 2 Mg/Ml Syr IVP 2 mg Q1H PRN PRN Administration Sertraline HCl 150 mg 08/21/24 11:00 08/22/24 08:47 Sertraline 100 Mg Tab PO 150 mg DAILY PRANAV Administration Sodium Chloride 0 ml 08/20/24 22:35 08/22/24 09:05 Normal Saline Flush 10 Ml Syr IVP 10 ml PRN PRN Administration Sodium Chloride 0 ml 08/21/24 08:30 08/22/24 08:47 Normal Saline Flush 10 Ml Syr IVP 10 ml BID PRANAV Administration IV IV Catheter Type [Right Saline Lock Antecubital] IV Catheter Gauge [Right 18 Antecubital] Diet Orders Category Date Time Status DIET [Regular/Normal] [DIET] Nutrition 08/22/24 Dinner Active Diagnostics 08/22/24 08/22/24 Range/Units Unknown 06:10 WBC Cancelled 5.61 (4.4-10.8) 10^3/uL RBC Cancelled 4.69 (3.93-5.22) 10^6/uL Hgb Cancelled 13.5 (11.2-15.7) g/dL Hct Cancelled 40.3 (36.0-46.0) % MCV Cancelled 86 (80-95) fL MCH Cancelled 28.8 (27.0-33.0) pg MCHC Cancelled 33.5 (32.0-36.0) % RDW Cancelled 13.2 (11.7-14.6) % Plt Count Cancelled 229 (130-400) 10^3/uL MPV Cancelled 9.6 (8.0-11.0) fL Immature Gran % 0.4 % Neutrophils % 58.1 % Lymphocytes % 33.5 % Monocytes % 5.9 % Eosinophils % 1.6 % Basophils % 0.5 % Nucleated RBC % 0.0 (0.0-0.3) % Absolute Neutrophils 3.26 (1.2-6.7) 10^3/uL Absolute Lymphocytes 1.88 (1.2-3.4) 10^3/uL Absolute Monocytes 0.33 (0.1-0.8) 10^3/uL Absolute Eosinophils 0.09 (0.0-0.7) 10^3/uL Absolute Basophils 0.03 (0.0-0.2) 10^3/uL Total Bilirubin 2.3 H (0.2-1.0) mg/dL Conjugated Bilirubin 1.4 H (0.0-0.2) mg/dL AST 130 H (15-37) U/L ALT 239 H (14-59) U/L Alkaline Phosphatase 131 H (46-116) U/L Total Protein 7.6 (6.4-8.2) g/dL Albumin 3.7 (3.4-5.0) g/dL Lipase 19 (<78) U/L [id number] Documentation POC Urine Test Start: 08/20/24 20:11 Freq: .Urine Test Status: Complete Protocol: Activity Type Activity Date Activity User E-sign Co-sign Detail Recorded Client Recorded Date Recorded By Document 08/20/24 20:24 N.MINERVA [id number] 08/20/24 20:24 N.MINERVA Intake and Output - 24 Hour Total 08/20/24 19:50 thru 08/22/24 12:02 Intake Total 3680 Output Total 1100 Balance 2580 Weight 117.934 kg Intake: IV 2800 Oral 880 Output: Urine 1100 Other: Urine Color Light Karissa Urine Appearance Clear Urine Odor None Comment patient stated that they used the bathroom. Falls Risk Assessment History of Falls No History 08/20/24 23:54 Contributing Factors No Factors 08/20/24 23:54 Ambulatory Aids Independent 08/20/24 23:54 Tubes/Lines None 08/20/24 23:54 Gait Evaluation No gait disturbance 08/20/24 23:54 Cognition No cognitive impairment 08/20/24 23:54 Fall Total Score 0 08/20/24 23:54 Level of Risk Standard/Low Risk 08/20/24 23:54 Problems (Last Reviewed 08/20/24 @ 20:15 by Katie Bradshaw NP) Choledocholithiasis (Acute) Elevated liver transaminase level (Acute) Notes 08/22/24 13:18 Nursing Notes by Thu Mcdaniel Nursing Note: Calex here to npick upn pt, report given, down and back to [facility] [place]. Initialized on 08/22/24 13:18 - END OF NOTE 08/22/24 11:39 Nursing Notes by Thu Mcdaniel Nursing Note: Per Dr. Chan, made pt NPO to go to [facility] [place] for ERCP, down and back. Transport being set up now. Pt has no fluids running, no oxygen, no cardiac monitoring. [facility] [place] Endoscopy #[phone], master scheduler [phone]. Will notify master scheduler when transport has been verified. Initialized on 08/22/24 11:39 - END OF NOTE 08/22/24 10:58 Nursing Notes by Thu Mcdaniel Nursing Note: Nursing walked in and pt was attempting to shut off her IV pump. Discussed the danger of doing this with her. She denied doing it. Initialized on 08/22/24 10:58 - END OF NOTE v v v v v v v v v Sending and/or Receiving Nurses: Please use comment section below to note any information pertinent to the patient hand-off not included above. Information / Comments: Report received from: received report from Yamila at [facility] [place] Endo: pt had a stent placed, which should pass on it's own, no removal necessary. She should be able to have her gallbladder out ow, no cholilithiasis noted. She got 2L LR there. She had difficulty coming out of anesthesia, took 5 poeple to hold her down, received 28mcg presidex, which had good effect, but she was still flailing and slapping herself in the face. She has been A&O x4.
[2024-08-22] MEDS: ARIPiprazole 2 MG TAB PO (20:22)
[2024-08-22] MEDS: hydrOXYzine HCL 25 MG TAB PO (21:05)
[2024-08-22 21:35] VITALS: BP 133/85; PULSE 69; RESP 19; TEMP 36.7; O2SAT 95
[2024-08-23] MEDS: Normal Saline 1,000 ML 125 ML IV ×3 (01:56→20:14)
[2024-08-23] MEDS: Heparin 5,000 UNITS/ML VIAL 5000 UNITS SC ×3 (05:28→21:27)
[2024-08-23 07:05] LABS: Abs Immature Grans 0.02 10^3/uL (0.0-0.06); Absolute Basophil Count 0.02 10^3/uL (0.0-0.2); Absolute Eosinophil Count 0.09 10^3/uL (0.0-0.7); Absolute Lymphocyte Count 1.59 10^3/uL (1.2-3.4); Absolute Monocyte Count 0.29 10^3/uL (0.1-0.8); Absolute Neutrophil Count 3.37 10^3/uL (1.2-6.7); Basophils % 0.4 %; Eosinophils % 1.7 %; HGB 12.9 g/dL (11.2-15.7); Immature Grans % 0.4 %; Lymphocytes % 29.6 %; MCH 28.7 pg (27.0-33.0); MCHC 33.1 % (32.0-36.0); MCV 87 fL (80-95); MPV 10.1 fL (8.0-11.0); Monocytes % 5.4 %; Neutrophils % 62.5 %; Platelet Count 246 10^3/uL (130-400); RDW 13.3 % (11.7-14.6); RDW-SD 41.8 fL; WBC 5.38 10^3/uL (4.4-10.8)
[2024-08-23 07:21] LABS: ALT 275 U/L (14-59); AST 173 U/L (15-37); Albumin 3.4 g/dL (3.4-5.0); Alkaline Phosphatase 124 U/L (46-116); Bilirubin, Direct 1.3 mg/dL (0.0-0.2); Bilirubin, Total 2.2 mg/dL (0.2-1.0); Lipase 24 U/L (<78); Total Protein 7.1 g/dL (6.4-8.2)
[2024-08-23 07:38] VITALS: BP 107/85; PULSE 76; RESP 18; TEMP 36.8; O2SAT 97
[2024-08-23] MEDS: Budesonide/Formoterol 160/4.5 6 GM 60 PUFF INH IH ×2 (08:06→19:48)
[2024-08-23] MEDS: Sertraline 100 MG TAB 150 MG PO (09:13)
[2024-08-23] MEDS: hydrOXYzine HCL 25 MG TAB PO ×2 (09:14→20:14)
[2024-08-23] MEDS: Acetaminophen 500 MG TAB 1000 MG PO ×2 (09:14→20:13)
[2024-08-23] MEDS: MORPHine 2 MG/ML SYR IVP ×2 (09:15→20:11)
[2024-08-23] MEDS: Normal Saline Flush 10 ML SYR IVP ×2 (09:16→20:12)
--- NOTE | 2024-08-23 12:46 | PDOC.CMPRO ---
Date of service: 08/23/24 Time of Service: 12:46 Care Management Progress Note Progress Note Text Progress Note Text: Aruna was awake and sitting up in bed when CM met with her. Her boyfriend is present, and identifies the other male in the room as his community support person. This person is also identified as their primary source of transportation. Ten minutes into the conversation, Aruna started making abnormal and frequent hand movements and sounds. Per pt, this has been going on for 3 weeks and she needs to see neurology. CM will continue to follow and support discharge planning considerations. Discharge Potential Discharge Needs: Surgical F/U Appt Anticipated Barriers to Discharge: None Identified Patient/Family Education Needs: Review discharge instructions, discuss Ask Me Three Transportation: Private vehicle Plan: Anticipate, Aruna will be discharged home with no new services. She will follow up with her PCP and plan of care and transport with family vs RCT. CM will follow and continue to assess for discharge needs. Social Determinants of Health Screening Will the Patient Participate in the Screening?: Declined to provide
--- NOTE | 2024-08-23 13:24 | NUR.NOTE ---
Reviewed documentation by Isaura Kendall, student nurse and agree with findings. Sarah Christian, MSN, RNC-OB, clinical instructor
--- NOTE | 2024-08-23 14:36 | PGE_ITS ---
Date of Service Date of service: 08/23/24 Time of Service: 14:36 Assessment and Plan Assessment and plan (1) Choledocholithiasis: Status: Acute Assessment and plan: It certainly reassuring that they were able to clear the duct with ERCP, And while I am pleased that the bilirubin is no longer rising, the other LFTs have not really improved at all. I reiterated to Aruna that my recommendation is for cholecystectomy to minimize likelihood of recurrent choledocholithiasis. I explained that my preference is to wait until there are signs of liver function test improvement before proceeding with cholecystectomy, as there is some evidence that ongoing cholestasis is associated with higher complication rates. I tried to explain this in simple terms at her request. I think she understands this, although she still quite insistent on cholecystectomy as soon as possible. I offered 2 options, the first is to wait in the hospital, and have repeat LFTs and proceed with cholecystectomy as soon as we see signs of significant improvement. Alternatively, I explained that she could be discharged, and have lab test on Monday and follow-up with an early interval cholecystectomy. She prefers to wait in the hospital, which is my preference as well. For now, she can eat and drink what ever she likes as long as she is pain-free, and I will repeat the liver function test tomorrow. Subjective Subjective Interval history since last seen: Aruna underwent ERCP yesterday, with stone extraction, and stenting. GI was a little concerned about the risk periprocedural pancreatitis, but her lipase is normal today, and she tells me that her back pain has resolved. She is i nsistent on removal of her gallbladder. Otherwise, she has no complaints. Exam GI Other: Abdomen remains soft and nontender. Objective Last Vital Signs Temp 98.2 F 08/23/24 07:38 Pulse 76 08/23/24 07:38 Resp 18 08/23/24 07:38 BP 107/85 08/23/24 07:38 Pulse Ox 97 08/23/24 07:38 Laboratory Results - last 24 hr 08/23/24 08/23/24 08/23/24 06:13 06:13 06:13 WBC 5.38 Cancelled RBC 4.50 Cancelled Hgb 12.9 Hct MCV MCH MCHC RDW Plt Count MPV Immature Gran % Neutrophils % Lymphocytes % Monocytes % Eosinophils % Basophils % Nucleated RBC % Absolute Neutrophils Absolute Lymphocytes Absolute Monocytes Absolute Eosinophils Absolute Basophils Total Bilirubin Conjugated Bilirubin AST ALT Alkaline Phosphatase Total Protein Albumin Lipase 08/23/24 08/23/24 08/23/24 06:13 06:13 06:13 WBC RBC Hgb Cancelled Hct 39.0 Cancelled MCV 87 Cancelled MCH 28.7 MCHC RDW Plt Count MPV Immature Gran % Neutrophils % Lymphocytes % Monocytes % Eosinophils % Basophils % Nucleated RBC % Absolute Neutrophils Absolute Lymphocytes Absolute Monocytes Absolute Eosinophils Absolute Basophils Total Bilirubin Conjugated Bilirubin AST ALT Alkaline Phosphatase Total Protein Albumin Lipase 08/23/24 08/23/24 08/23/24 06:13 06:13 06:13 WBC RBC Hgb Hct MCV MCH Cancelled MCHC 33.1 Cancelled RDW 13.3 Cancelled Plt Count 246 MPV Immature Gran % Neutrophils % Lymphocytes % Monocytes % Eosinophils % Basophils % Nucleated RBC % Absolute Neutrophils Absolute Lymphocytes Absolute Monocytes Absolute Eosinophils Absolute Basophils Total Bilirubin Conjugated Bilirubin AST ALT Alkaline Phosphatase Total Protein Albumin Lipase 08/23/24 08/23/24 06:13 06:13 WBC RBC Hgb Hct MCV MCH MCHC RDW Plt Count Cancelled MPV 10.1 Cancelled Immature Gran % 0.4 Neutrophils % 62.5 Lymphocytes % 29.6 Monocytes % 5.4 Eosinophils % 1.7 Basophils % 0.4 Nucleated RBC % 0.0 Absolute Neutrophils 3.37 Absolute Lymphocytes 1.59 Absolute Monocytes 0.29 Absolute Eosinophils 0.09 Absolute Basophils 0.02 Total Bilirubin 2.2 H Conjugated Bilirubin 1.3 H AST 173 H ALT 275 H Alkaline Phosphatase 124 H Total Protein 7.1 Albumin 3.4 Lipase 24 PAWSS Have you Been Recently Intoxicated or Drunk Within the Last 30 days?: No Have you Ever Experienced Previous Episodes of Alcohol Withdrawal?: No Have you ever Experienced Withdrawal Seizures?: No Have you ever Experienced Delirium Tremens(DT)s?: No Have you ever undergone Alcohol Rehabilitation Treatment (i.e, inpt ot outpatient treatment programs)?: No Have you ever Experienced Blackouts?: No Have you ever Combined Alcohol with other Downers within the last 90 days?: No Have you ever Combined Alcohol with any other Substance of Abuse during the last 90 days?: No Positive Blood Alcohol level on Presentation? [PCS.BAL]: No Evidence of Increased Autonomic Activity (i.e. HR>120, tremor, sweating, agitation, nausea)?: No Result: 0 Time Spent with Patient Time Spent with Patient: 25-34 minutes Time was spent: preparing to see the patient(eg.review tests), ordering medications,tests, procedures, indepentently interpreting results and counseling the patient
--- NOTE | 2024-08-23 16:21 | ANES.PREOP_ITS ---
General Info Date of Service Date Performed: 08/23/24 Height: 5 ft 3 in Weight: 117.934 kg Body Mass Index (BMI): 46.0 Meds Allergies and Home Medications Allergies Allergy/AdvReac Type Severity Reaction Status Date / Time No Known Allergies Allergy Verified 08/20/24 20:03 Home Medication ?Medication ?Instructions ?Recorded acetaminophen 325 mg tablet 650 mg PO Q4H PRN #60 tab-caps 01/27/16 melatonin 3 mg capsule 3 mg PO DAILY PRN sleep #90 caps 11/07/19 loratadine 10 mg tablet (Allergy 10 mg PO DAILY #90 tabs 08/11/21 Relief (loratadine)) ibuprofen 800 mg tablet 800 mg PO Q8H PRN fever or pain 12/27/21 albuterol sulfate 90 mcg/actuation 2 inh inhalation Q4H PRN shortness 01/20/23 aerosol inhaler of breath or wheezing #18 grams etonogestrel 68 mg subdermal 1 implant subdermal ONCE 07/30/24 implant (Nexplanon) aripiprazole 2 mg tablet 2 mg PO DAILY #90 tabs 08/12/24 fluticasone propionate 230 2 puff inhalation BID #12 grams 08/12/24 mcg-salmeterol 21 mcg/actuation HFA inhaler (Advair HFA) sertraline 100 mg tablet 150 mg (1.5 x 100 mg) PO DAILY 08/12/24 #135 tabs guanfacine 1 mg tablet,extended 1 mg PO QPM 08/21/24 release 24 hr hydroxyzine HCl 25 mg tablet 25 mg PO DAILY PRN 08/21/24 trazodone 50 mg tablet 50 mg PO HS 08/21/24 Current Visit Medications: Current Medications Generic Name Dose Route Start Last Admin Trade Name Freq PRN Reason Stop Dose Admin Acetaminophen 1,000 mg 08/21/24 19:57 08/23/24 09:14 Acetaminophen 500 Mg Tab PO 1,000 mg Q6H PRN PRN Administration Albuterol Sulfate 2 puff 08/21/24 10:57 Albuterol Hfa 8 Gm 60 Puff Inh IH Q4H PRN PRN shortness of breath or wheezing Aripiprazole 2 mg 08/21/24 20:00 08/22/24 20:22 Aripiprazole 2 Mg Tab PO 2 mg HS PRANAV Administration Budesonide/Formoterol Fumarate 2 puff 03/12/25 20:00 08/23/24 08:06 Budesonide/Formoterol 160/4.5 6 Gm 60 Puff Inh IH 2 puff BID PRANAV Administration Heparin Sodium (Porcine) 5,000 units 08/23/24 06:00 08/23/24 14:34 Heparin 5,000 Units/Ml Vial SC 5,000 units Q8H PRANAV Administration Hydroxyzine HCl 25 mg 08/22/24 20:58 08/23/24 09:14 Hydroxyzine Hcl 25 Mg Tab PO 25 mg TID PRN PRN Administration Sodium Chloride 1,000 mls @ 125 mls/hr 08/20/24 23:30 08/23/24 15:32 Saline 1000ml Bag IV 125 mls/hr INFUSION PRANAV Administration Piperacillin Sod/Tazobactam 100 mls @ 200 mls/hr 08/22/24 18:00 08/23/24 14:36 Sod 4.5 gm/ Dextrose/Water IVPB Infused Q6H PRANAV Infusion IV Miscellaneous Supplies 1 each 08/21/24 11:00 Iv Access IV DIRECTED PRANAV Melatonin 3 mg 08/21/24 20:00 Melatonin 3 Mg Tab PO HS PRN PRN sleep Morphine Sulfate 2 mg 08/20/24 23:16 08/23/24 09:15 Morphine 2 Mg/Ml Syr IVP 2 mg Q1H PRN PRN Administration Ondansetron HCl 4 mg 08/20/24 23:16 Ondansetron 4 Mg/2 Ml Vial IVP Q4H PRN PRN Sertraline HCl 150 mg 08/21/24 11:00 08/23/24 09:13 Sertraline 100 Mg Tab PO 150 mg DAILY PRANAV Administration Sodium Chloride 0 ml 08/20/24 22:35 08/22/24 09:05 Normal Saline Flush 10 Ml Syr IVP 10 ml PRN PRN Administration Sodium Chloride 0 ml 08/21/24 08:30 08/23/24 09:16 Normal Saline Flush 10 Ml Syr IVP 10 ml BID PRANAV Administration Sodium Chloride 0 ml 08/20/24 22:35 Normal Saline 10 Ml Vial IJ DIRECTED PRN PFSH Active Problems Active Problems: Problem Status Onset Code Choledocholithiasis Acute K80.50 Flank pain Acute R10.9 Elevated liver transaminase level Acute R74.01 History of posttraumatic stress disorder (PTSD) Acute Z86.59 Convulsion Acute R56.9 High risk HPV infection Acute B97.7 Snoring Acute R06.83 Morning headache Acute R51.9 Asthma Chronic J45.909 Panic Acute F41.0 Anxiety Chronic F41.9 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 F81.0 Umbilical abnormality Acute 06/29/16 Q89.9 Insomnia Acute 07/25/17 G47.00 Increased BMI (body mass index) Chronic 08/24/17 R63.8 Depressive disorder Chronic 06/21/13 F32.9 Chronic midline low back pain without sciatica Chronic 08/24/17 M54.5, G89.29 Attention deficit hyperactivity disorder Chronic 10/31/12 F90.9 Medical History Medical History Nexplanon in place Original 07/07/21 Replaced 07/30/24 Elevated BP without diagnosis of hypertension Discomfort of right ear Hx of migraines Surgical History Surgical History Tonsillectomy and adenoidectomy 2003 Patent Ductus Arteriosus closure Tobacco Smoking/Tobacco Use Status: Current-Occasional Tobacco Type: cigarettes Passive smoking exposure: Yes Second hand exposure: Yes Alcohol Alcohol Intake: current Alcohol intake frequency: holidays/special occasions only Counseling provided: provider counseling Details: Occasional binge drinking - counselled Substance Use Substance use: Occasionally Substance use type: marijuana Details: smoke Prental History History 2 3 Para 2 Hx # Term Pregnancies 0 Multiple births 0 Hx # Pregnancies 3 Ectopic pregnancies 0 AB induced 0 Hx Number of Living Children 2 AB spontaneous 0 Past Pregnancies Del. Date GA/Weeks # Preg Succ Route Wgt Sex Labor Lgth Anesth esia Location [facility] 07/20/16 34 vaginal 2494.758 g Female [facility] 05/06/18 34 No vaginal 2148.894 g Male [facility] 07/06/21 38 No vaginal 2806.603 g Female [facility]ida [facility] Delivery Date: 07/20/16 Last Updated by: Tiff Nicolas PPROM, IOL with Pitocin, pt does not have custody. Delivery Date: 05/06/18 Last Updated by: So Miller M.D. Does not have custody. Vital Signs and Lab Results Vital Signs Most Recent Vital Signs in EMR: Most Recent Vital Signs Temp Pulse Resp BP Pulse Ox 36.8 C 76 18 107/85 97 08/23/24 07:38 08/23/24 07:38 08/23/24 07:38 08/23/24 07:38 08/23/24 07:38 Point of Care Results Point of Care Results: POC- Test(urine) Negative 08/20/24 20:24 Lab Results 08/23/24 06:13 08/21/24 05:50 Blood Type / Crossmatch: 2 No Data to Display Complete Blood Count: 2 White Blood Count 5.38 10^3/uL (4.4-10.8) 08/23/24 06:13 Red Blood Count 4.50 10^6/uL (3.93-5.22) 08/23/24 06:13 Hemoglobin 12.9 g/dL (11.2-15.7) 08/23/24 06:13 Hematocrit 39.0 % (36.0-46.0) 08/23/24 06:13 Platelet Count 246 10^3/uL (130-400) 08/23/24 06:13 Complete Metabolic Panel: 2 Sodium 142 mmol/L (136-145) 08/21/24 05:50 Potassium 3.3 mmol/L (3.5-5.1) L 08/21/24 05:50 Chloride 107 mmol/L (98-107) 08/21/24 05:50 Carbon Dioxide 25.7 mmol/L (21.0-32.0) 08/21/24 05:50 BUN 9 mg/dL (7-18) 08/21/24 05:50 Creatinine 0.9 mg/dL (0.55-1.02) 08/21/24 05:50 Est GFR (CKD-EPI 2020) 89.30 (mL/min/1.73m2) 08/21/24 05:50 Magnesium 1.8 mg/dL (1.8-2.4) 08/07/24 13:37 Calcium 8.7 mg/dL (8.5-10.1) 08/21/24 05:50 Albumin 3.4 g/dL (3.4-5.0) 08/23/24 06:13 Glucose 107 mg/dL (74-106) H 08/21/24 05:50 Liver Function Panel: 2 Alanine Aminotransferase (ALT/SGPT) 275 U/L (14-59) H 08/23/24 06:13 Aspartate Amino Transf (AST/SGOT) 173 U/L (15-37) H 08/23/24 06 :13 Coagulation Panel: 2 No Data to Display Cardiac Panel: 2 No Data to Display Arterial Blood Gas: 2 No Data to Display Venous Blood Gas: 2 No Data to Display Pancreas Panel: 2 Lipase 24 U/L (<78) 08/23/24 06:13 Thyroid Panel: 2 Thyroid Stimulating Hormone (TSH) 0.88 uIU/mL (0.36-3.74) 08/07 13:37 Infectious Disease: 2 No Data to Display Blood Cultures: 2 No Data to Display Toxicology Panel: 2 No Data to Display Panel: 2 No Data to Display Imaging and Studies Imaging and Studies Study information below may be from another EMR and interpreted by another provider. Please see original notes in EMR for more complete details. Pulmonary Function Summary: Date of service: 07/04/23 Time of Service: 15:00 Pulmonary Function Test Result Indications: Dyspnea Interpretation Spirometry: There is mild airflow limitation at baseline. There was a 21% decrease in FEV1 with administration of 1.0mg/mL methacholine. Impression Mild baseline airflow limitation and positive methacholine challenge. Clinical Correlation therefore is recommended. Anesthesia Assessment and Plan Anesthesia History Personal History: Other (wakes up violent, flailing) Family History: No Family History of Anesthesia Complications Exercise Tolerance Exercise Tolerance: Metabolic Equivalents>4 Pertinent Negatives Pertinent Negatives: No Symptoms of GERD Cardiac & Pulmonary Exam Cardiac Exam: Normal S1/S2 Heart Sounds Pulmonary Exam: Clear Bilateral Breath Sounds Implantable Cardiac Device Does patient have a Pacemaker or an ICD?: No Airway Exam Known Difficult Airway: No Mallampati Class: 2 Mouth Opening: Normal (> 3cm) Thyromental Distance: Greater than 3 cm Neck Range of Motion: Full ROM Neck Circumference: Normal Teeth Condition: Normal Dentition ASA Classification ASA Score: ASA 3 Emergency Case?: No NPO Status NPO Status: NPO Clears >2 hours, Solids >8 hours Status Status: Negative HCG Anesthesia Plan Resuscitation Status: Full Code Anesthesia Technique: General Anesthesia Airway Planned: Endotracheal Tube Monitors Used: Standard Monitors
[2024-08-23 16:25] VITALS: BMI 46.0
[2024-08-23] MEDS: Melatonin 3 MG TAB PO (20:13)
[2024-08-23] MEDS: ARIPiprazole 2 MG TAB PO (20:14)
[2024-08-23 23:24] VITALS: BP 131/89; PULSE 75; RESP 18; TEMP 36.6; O2SAT 97
[2024-08-24] VITALS (23 sets, daily range): BP systolic 106–157; BP diastolic 63–102; PULSE 59–87; RESP 10–25; TEMP 36.2–37.1; O2SAT 90–97
[2024-08-24] MEDS: Normal Saline Flush 10 ML SYR IVP ×3 (00:22→12:47)
[2024-08-24] MEDS: Albuterol HFA 8 GM 60 PUFF INH IH (05:03)
[2024-08-24] MEDS: Heparin 5,000 UNITS/ML VIAL 5000 UNITS SC (05:31)
[2024-08-24 07:04] LABS: ALT 241 U/L (14-59); AST 89 U/L (15-37); Albumin 3.2 g/dL (3.4-5.0); Alkaline Phosphatase 121 U/L (46-116); Bilirubin, Direct 0.5 mg/dL (0.0-0.2); Bilirubin, Total 0.9 mg/dL (0.2-1.0); Total Protein 6.8 g/dL (6.4-8.2)
[2024-08-24] MEDS: Sertraline 100 MG TAB 150 MG PO (07:27)
[2024-08-24] MEDS: Normal Saline 1,000 ML 125 ML IV (07:30)
--- NOTE | 2024-08-24 07:37 | W.PM.PROGNOT ---
Date of Service Date of service: 08/24/24 Time of Service: 07:37 Assessment and Plan Assessment and plan (1) Choledocholithiasis: Status: Acute Assessment and plan: The bilirubin is down to a normal level today, and I think it safe to proceed with cystectomy to reduce the likelihood of complications from gallstones and recurrent choledocholithiasis. I spent quite a bit of time trying to explain the risks and the benefits of surgery to Aruna. Generally, she just kept saying over and over again to not worry about it and take the gallbladder out. I explained the importance of her understanding the risks of the operation, including things such as the possibility of converting to open surgery, possibility of injuring bile ducts, the possibility of bile leak, and other issues. I asked her several times if she had any questions about any of this. I also explained that the intent of the operation is to remove the gallbladder to prevent other complications of gallstones. I was very clear that this operation will not alleviate all of her chronic symptoms specifically as they regard to back and flank pain. I think that she does understand this, and I do think that she has capacity to provide informed consent, and I think we can proceed to the operating room this morning as planned. Subjective Subjective Interval history since last seen: Aruna has no new complaints this morning. Objective Last Vital Signs Temp 97.9 F 08/23/24 23:24 Pulse 75 08/23/24 23:24 Resp 18 08/23/24 23:24 BP 131/89 08/23/24 23:24 Pulse Ox 97 08/23/24 23:24 Laboratory Results - last 24 hr 08/24/24 06:25 Total Bilirubin 0.9 Conjugated Bilirubin 0.5 H AST 89 H ALT 241 H Alkaline Phosphatase 121 H Total Protein 6.8 Albumin 3.2 L PAWSS Have you Been Recently Intoxicated or Drunk Within the Last 30 days?: No Have you Ever Experienced Previous Episodes of Alcohol Withdrawal?: No Have you ever Experienced Withdrawal Seizures?: No Have you ever Experienced Delirium Tremens(DT)s?: No Have you ever undergone Alcohol Rehabilitation Treatment (i.e, inpt ot outpatient treatment programs)?: No Have you ever Experienced Blackouts?: No Have you ever Combined Alcohol with other Downers within the last 90 days?: No Have you ever Combined Alcohol with any other Substance of Abuse during the last 90 days?: No Positive Blood Alcohol level on Presentation? [PCS.BAL]: No Evidence of Increased Autonomic Activity (i.e. HR>120, tremor, sweating, agitation, nausea)?: No Result: 0 Time Spent with Patient Time Spent with Patient: 35-49 minutes Time was spent: preparing to see the patient(eg.review tests), indepentently interpreting results, counseling the patient and care coordination
[2024-08-24] MEDS: Indocyanine green 25 MG VIAL (08:25)
[2024-08-24] MEDS: Bupivacaine 0.25% Pres-Free W/EPI 30 ML VIAL (09:02)
--- NOTE | 2024-08-24 09:55 | GB_PTH ---
PATIENT: Aruna Friedman LOC: U#:[id number] AGE/SX: 29/F ROOM: RE08/20/[address]: Gume Saleem : 1995 BED: A DIS: 08/24/2024 SPEC #: [id number] RECD: 08/26/24 12:49 STATUS: MARLENY REAyaka #: [id number] GERALDINE: 08/24/24 09:[address]: Gume Saleem DEPT: Surgical Specimen RECD BY: Yahaira Paulino ENTERED: 08/26/24 12:50 SP TYPE: GB OTHR DR: Kristopher Mishra DNP Tissues: 1 - GALLBLADDER Procedures: GROSS AND MICRO LEVEL 3 Comments: [id number]
--- NOTE | 2024-08-24 10:11 | ROE_ITS ---
Operative Note Operative Note PRE-OP DIAGNOSIS: Choledocholithiasis and cholelithiasis POST-OP DIAGNOSIS: same PROCEDURE: Laparoscopic cholecystectomy SURGEON: Noel Chan [employer] PROFESSIONAL: Rosibel Chowdhury ANESTHESIA TYPE: Local By Surgeon and General LMA/ETT Refer to Anesthesia Record ESTIMATED BLOOD LOSS: 25 PATHOLOGY: other (Gallbladder) COMPLICATIONS: None Patient was transported to: PACU Patient's condition: stable Indications: Aruna is a 29-year-old woman who came to the hospital with back pain. She was found to have elevated liver tests, and underwent a MRCP that confirmed choledocholithiasis. She was transferred to [facility] for down back ERCP to clear the duct. Once her bilirubin normalized, we brought her to the operating room for cholecystectomy to reduce complications of her cholelithiasis Procedure Description: After satisfactory induction of general anesthesia, I prepped and draped the abdomen in usual fashion. Next, I began with a periumbilical incision. I dissected down to the fascia. I entered the peritoneal cavity under direct vision using an optical 5 mm port. The peritoneum was insufflated. The camera was reintroduced, and underlying viscera was examined. There was no evidence of any injuries. Next, another 5 mm port was placed in the right anterior axillary line, followed by another 5 mm port in the mid epigastrium. The gallbladder dome was grasped, and elevated cephalad. A final 5 mm port was placed in the mid abdomen to help facilitate safe dissection. We then began dissecting the gallbladder neck and cystic duct. With the assistance of indocyanine green, I worked in a lateral to medial fashion skeletonizing the duct. Once this was mobilized clean, the artery was also identified. With the critical view of safety achieved, the duct and artery were doubly clipped and divided. The gallbladder was then dissected off of the gallbladder fossa using electrocautery. The umbilical port was upsized to a 12 mm port, and an Endo Catch bag was introduced and used to control the gallbladder. The surgical bed was irrigated clean. The cystic duct stump was examined, as was the gallbladder fossa under indocyanine green visualization. I did not see any evidence of bile leak anywhere. The gallbladder was then removed with the umbilical port, and a Karl Tijerina wound closure device was used to reapproximate the fascia at the umbilical level. The remaining 5 mm ports were removed. There was no bleeding. The skin and subcutaneous tissues were irrigated, and subcuticular stitches w ere used to close the wounds. Band-Aids were applied, and Aruna was allowed awaken from anesthetic, extubated, and transferred to the recovery unit. Date of Procedure: 08/24/24
--- NOTE | 2024-08-24 10:17 | W.PM.DS.N ---
Date of service: 08/24/24 Time of Service: 10:17 DS: Diagnosis Discharge Diagnosis (1) Choledocholithiasis: Status: Acute Asessment and Plan: Status post ERCP and laparoscopic cholecystectomy; postoperative follow-up in the office 2 weeks Discharge Plan Disposition Patient Disposition: Home Condition: Improving Discharge Details Reason For Visit: Gallbladder distension, Elevated liver Transaminas Admit Date/Time: 08/20/24 22:35 Admit Provider: Gume Saleem Attending Provider: Gume Saleem [facility] Course: Aruna is a 29-year-old woman who presented to the emergency department with a complaint of back pain. She underwent a CT scan that demonstrated dilated extrahepatic biliary system. Total bilirubin was also elevated raising the concern for obstruction of the common bile duct. She underwent an MRCP that confirmed stone in the distal common bile duct, as well as a stone in the gallbladder. She was transferred to [facility] for down and back ERCP to clear the duct, and once her bilirubin normalized, we brought her to the operating room for cholecystectomy. She underwent laparoscopic cholecystectomy on August 24, was discharged home with postoperative instructions and a plan for outpatient follow-up care. Home Meds and New Rx's Prescriptions: New tramadol 50 mg tablet 50 mg PO Q8H PRNQty: 9 0RF Rx Instructions: Take 1 tablet by mouth up to every 8 hours if needed for severe pain after surgery. Continued Nexplanon 68 mg implant 1 implant subdermal ONCE Rx Instructions: as a single dose melatonin 3 mg capsule 3 mg PO DAILY PRN (Reason: sleep) Qty: 90 6RF ibuprofen 800 mg tablet 800 mg PO Q8H PRN (Reason: fever or pain) sertraline 100 mg tablet 150 mg PO DAILY Qty: 135 4RF fluticasone propion-salmeterol [Advair HFA] 230-21 mcg/actuation HFA aerosol inhaler 2 puff inhalation BID Qty: 12 2RF aripiprazole 2 mg tablet 2 mg PO DAILY Qty: 90 0RF acetaminophen 325 MG tablet 650 mg PO Q4H PRN Qty: 60 loratadine [Allergy Relief (loratadine)] 10 mg tablet 10 mg PO DAILY Qty: 90 4RF albuterol sulfate 90 mcg/actuation HFA aerosol inhaler 2 inh inhalation Q4H PRN (Reason: shortness of breath or wheezing) Qty: 18 0RF trazodone 50 mg tablet 50 mg PO HS guanfacine 1 mg tablet extended release 24 hr 1 mg PO QPM hydroxyzine HCl 25 mg tablet 25 mg PO DAILY PRN Discharge Instructions Instructions: Cholecystectomy (DC), Cholecystectomy, Laparoscopic Surgery Additional Instructions: Aruna, I hope you make a quick recovery during your transition home. In brief summary, you came to the hospital with a complaint of back pain. You had some abnormalities of your lab tests, which suggested problems with your gallbladder system. The CT scan showed the presence of dilated biliary ducts, and the test called an MRCP confirmed the presence of a biliary stone stuck within the ducts that drain the gallbladder and liver. You underwent a test called an ERCP to remove that stone. Once your liver test improved, you underwent a laparoscopic cholecystectomy, or removal of your gallbladder. The goal of the surgery is to reduce complications of gallstones. As we discussed, after surgery, you will have some pain at your incision sites, and perhaps some pain arising from the area where your gallbladder was removed. Things like Tylenol and ibuprofen are the traditional management strategy for that pain. I also provided a prescription for medication called tramadol if Tylenol and ibuprofen are not enough to control it. It will not make you pain-free, but it should make it more comfortable. I also encourage patients to use ice packs over the incisions to help with swelling and pain after surgery. Expect to have bruising over the incision sites as that is very common. The bandages on your incisions can be removed tomorrow, and all of the wounds should be washed with warm soapy water at least 1 time daily. You are welcome to replace Band-Aids if you find that most comfortable, but if the wounds are clean and dry, then you do not need any covering on top of them. During your recovery, encourage you to engage in very light basic exercise. Walking is excellent after surgery, and important for your health overall. You are restricted from lifting anything heavier than 10 pounds. When we assessed the wounds in the office and see how you are doing, we will make adjustments as necessary. I do not suggest any specific dietary restrictions after surgery aside from a healthy well-balanced diet. I encourage you to focus on fruits and vegetables, and avoid fast food and processed foods. It is not unusual for some patients to experience loose bowel movements or diarrhea after removal of the gallbladder. This is not at all dangerous. If it occurs, then you should eliminate all fat from your diet, 6 weeks after the operation. I will have my office contact you on Monday to schedule your follow-up visit. If you need anything or have any concerns in the meantime, please do not hesitate to call the hospital and have them page the surgeon on-call. Activity:: No heavy lifting Equipment/Supplies:: No Equipment Needed Diet:: As Tolerated DS: Summary Time Spent with Patient providing and/or coordinating discharge services: Less than 30 minutes Status at Discharge Functional status at discharge: independent ambulation Overall status at discharge: patient is progressing back to baseline Mental Status: mental status grossly normal Speech and Movement: speech and movement normal Mood: congruent mood Affect: normal affect Quality:SDOH Health Related Social Needs: No Data to Display Exam Psych Mental Status: mental status grossly normal Speech and Movement: speech and movement normal Mood: congruent mood Affect: normal affect DS: Data Vitals/I&O Vitals and I&O: Vital Signs Temperature 98.8 F 08/24/24 07:37 Temperature Source Temporal Artery Scan 08/24/24 07:37 Pulse 74 08/24/24 07:37 Pulse Rhythm Regular 08/20/24 23:54 Respiratory Rate 16 08/24/24 07:37 Respiratory Effort Normal, Non-Labored 08/20/24 23:54 Respiratory Depth Normal 08/20/24 23:54 Respiratory Pattern Normal 08/20/24 23:54 Blood Pressure 144/89 H 08/24/24 07:37 Blood Pressure Mean 96 08/20/24 21:21 Blood Pressure Position Supine 08/20/24 21:21 Pulse Oximetry 97 08/24/24 07:37 Oxygen Delivery Method Room Air 08/24/24 07:37 Oxygen Flow Rate 0 08/24/24 07:37 Pain Level 9 08/24/24 07:37 Intake & Output 08/23/24 08/23/24 08/24/24 11:59 23:59 11:59 Intake Total 1200 / 2006.5 807.5 / 2006. 1210 / 1210 Output Total 500 / 1300 800 / 1300 925 / 925 Balance 700 / 707.5 7.5 / 707.5 285 / 285 Weight 260 lb Intake: IV 1200 / 2006. 807.2006.5 1210 / 1210 Output: Urine 500 / 1300 800 / 1300 900 / 900 Estimated Blood Loss Other: Urine Color Light Karissa Pale Yellow Urine Appearance Clear Clear Clear Urine Odor Normal Normal Normal Comment unmeasured amount in toilet Data Completed and Pending Labs on day of discharge: Labs from last 24 hours 08/24/24 06:25 Total Bilirubin 0.9 Conjugated Bilirubin 0.5 H AST 89 H ALT 241 H Alkaline Phosphatase 121 H Total Protein 6.8 Albumin 3.2 L PFSH All Active Problems (Updated 08/21/24 @ 20:03 by Noel Chan MD) Choledocholithiasis (Acute) Flank pain (Acute) Elevated liver transaminase level (Acute) History of posttraumatic stress disorder (PTSD) (Acute) Convulsion (Acute) 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 Umbilical abnormality (Acute 06/29/16) Insomnia (Acute 07/25/17) Increased BMI (body mass index) (Chronic 08/24/17) Depressive disorder (Chronic 06/21/13) Psychiatric consult 02/23 Chronic midline low back pain without sciatica (Chronic 08/24/17) Attention deficit hyperactivity disorder (Chronic 10/31/12) Medical History Nexplanon in place Original 07/07/21 Replaced 07/30/24 Elevated BP without diagnosis of hypertension Discomfort of right ear Hx of migraines Surgical History Tonsillectomy and adenoidectomy 2002 Patent Ductus Arteriosus closure Family History Father Diabetes Maternal Grandfather , age 41 Brain cancer Mother Depression Brother , born at 5 months No problems noted. Daughter No problems noted. Paternal Grandfather No problems noted. Maternal Grandmother , age 74 Diabetes Heart disease Cervix cancer Stroke Brain cancer Lymph node cancer Paternal Grandmother No problems noted. Social History Smoking/Tobacco Use Status: Current-Occasional Tobacco Type: cigarettes Tobacco: How many years used: 9 Quit status: has quit before Second Hand Exposure: Yes Smoking risk assessment performed?: Yes Alcohol Intake: current Alcohol Intake frequency: holidays/special occasions only Counseling provided: provider counseling Details: Occasional binge drinking - counselled Drug use: Occasionally Substance use type: marijuana Details: smoke Adopted: No Household members: family and other Details: lives with mother. Has supervised visitation with her son. No contact daugh Housing: apartment Number of Children: 2 Do you need help understanding health information?: Never current occupation: Disabled. Pets and animals: Yes Pets and animals: dog(s) Sexually active: Yes Do you think of yourself as: straight/heterosexual Current gender identity: female What is your relationship status?: never How often do you talk on the phone with friends or family?: never How often do you get together with friends or relatives?: once per week How often do you attend evangelical or faith services?: 1-3 times per year Do you belong to any clubs or organized social groups?: no Panel score (0-1 are the most socially isolated patients): 0 Duration: < 15 minutes/day Frequency: 1-2 times per week Evangelina/Tenriism: No preference Seatbelt use: sometimes Helmet use: No Drive intox or ride w/intox tilt tray driver: No Do you feel safe at home: Yes Do you feel safe in your relationship?: Yes History History 3 Para 2 Hx # Term Pregnancies 0 Multiple births 0 Hx # Pregnancies 3 Ectopic pregnancies 0 AB induced 0 Hx Number of Living Children 2 AB spontaneous 0 Past Pregnancies Del. Date GA/Weeks # Preg Succ Route Wgt Sex Labor Lgth Anesthesia Location Prov [facility] 07/20/16 34 vaginal 5 lb 8 oz Female [facility] 05/06/18 34 No vaginal 4 lb 11.8 oz Male [facility] 07/06/21 38 No vaginal 6 lb 3 oz Female Candida V[facility] Delivery Date: 07/20/16 Last Updated by: Tiff Nicolas PPROM, IOL with Pitocin, pt does not have custody. Delivery Date: 05/06/18 Last Updated by: So Miller M.D. Does not have custody. Time Spent with Patient Time Spent with Patient: <45 minutes Time was spent: care coordination
[2024-08-24] MEDS: fentaNYL 100 MCG/2 ML VIAL IVP (10:35)
--- NOTE | 2024-08-24 11:12 | W.PC.ACHO ---
Registration Status: Primary Language: Preferred Language: ED Information & Data Chief Complaint Nk/Back Pain 08/20/24 20:16 Triage Note Presented with 03/21 back 08/20/24 19:55 pain which started yesterday . State she was here in the ER yesterday for 4 hours and she got sick of waiting and she left without being seen . Patient state the pain from the lower part of her spine to under her ribcage. State she vomited yesterday in the Er but no more since then. state she has not taken anything to help with the pain in her back Medical / Surgical History (Last Reviewed 08/20/24 @ 20:15 by Katie Bradshaw NP) Nexplanon in place Elevated BP without diagnosis of hypertension Discomfort of right ear Hx of migraines (Last Reviewed 08/20/24 @ 20:15 by Katie Bradshaw NP) Tonsillectomy and adenoidectomy Patent Ductus Arteriosus closure Most Recent Vital Signs Temperature 36.2 C L 08/24/24 10:59 Temperature Source Temporal Artery Scan 08/24/24 07:37 Pulse 59 L 08/24/24 10:59 Pulse Rhythm Regular 08/20/24 23:54 Pulse 75 08/24/24 10:46 Respiratory Rate 14 08/24/24 10:59 Respiratory Effort Normal, Non-Labored 08/20/24 23:54 Respiratory Depth Normal 08/20/24 23:54 Respiratory Pattern Normal 08/20/24 23:54 Blood Pressure 123/77 08/24/24 10:59 Blood Pressure Mean 107 08/24/24 10:46 Blood Pressure Position Supine 08/20/24 21:21 Pulse Oximetry 93 08/24/24 11:02 Oxygen Delivery Method Nasal Cannula 08/24/24 11:02 Oxygen Flow Rate 1 08/24/24 11:02 Pain Level 9 08/24/24 07:37 Allergies No Known Allergies Allergy (Verified 08/20/24 20:03) Active Medications Generic Name Dose Route Start Last Admin Trade Name Freq PRN Reason Stop Dose Admin Acetaminophen 1,000 mg 08/21/24 19:57 08/23/24 20:13 Acetaminophen 500 Mg Tab PO 1,000 mg Q6H PRN PRN Administration Albuterol Sulfate 2 puff 08/21/24 10:57 08/24/24 05:03 Albuterol Hfa 8 Gm 60 Puff Inh IH 2 puffs Q4H PRN PRN Administration shortness of breath or wheezing Aripiprazole 2 mg 08/21/24 20:00 08/23/24 20:14 Aripiprazole 2 Mg Tab PO 2 mg HS PRANAV Administration Budesonide/Formoterol Fumarate 2 puff 08/21/24 20:00 08/24/24 08:06 Budesonide/Formoterol 160/4.5 6 Gm 60 Puff Inh IH Not Given BID PRANAV Heparin Sodium (Porcine) 5,000 units 08/23/24 06:00 08/24/24 05:31 Heparin 5,000 Units/Ml Vial SC 5,000 units Q8H PRANAV Administration Hydroxyzine HCl 25 mg 08/22/24 20:58 08/23/24 20:14 Hydroxyzine Hcl 25 Mg Tab PO 25 mg TID PRN PRN Administration Sodium Chloride 1,000 mls @ 125 mls/hr 08/20/24 23:30 08/24/24 07:30 Saline 1000ml Bag IV 125 mls/hr INFUSION PRANAV Administration Melatonin 3 mg 08/21/24 20:00 08/23/24 20:13 Melatonin 3 Mg Tab PO 3 mg HS PRN PRN Administration sleep Sertraline HCl 150 mg 08/21/24 11:00 08/24/24 07:27 Sertraline 100 Mg Tab PO 150 mg DAILY PRANAV Administration IV IV Catheter Type [Left Forearm Peripheral IV ] IV Catheter Type [Right Peripheral IV Antecubital] IV Catheter Gauge [Left 20 Forearm] IV Catheter Gauge [Right 18 Antecubital] Diet Orders Category Date Time Status DIET [Regular/Normal] [DIET] Nutrition 08/24/24 Lunch Active Diagnostics 08/24/24 Range/Units 06:25 Total Bilirubin 0.9 (0.2-1.0) mg/dL Conjugated Bilirubin 0.5 H (0.0-0.2) mg/dL AST 89 H (15-37) U/L ALT 241 H (14-59) U/L Alkaline Phosphatase 121 H (46-116) U/L Total Protein 6.8 (6.4-8.2) g/dL Albumin 3.2 L (3.4-5.0) g/dL [id number] Documentation POC Urine Test Start: 08/20/24 20:11 Freq: .Urine Test Status: Complete Protocol: Activity Type Activity Date Activity User E-sign Co-sign Detail Recorded Client Recorded Date Recorded By Document 08/20/24 20:24 NMIGUEL [id number] 08/20/24 20:24 NMIGUEL Intake and Output - 24 Hour Total 08/20/24 19:50 thru 08/24/24 10:39 Intake Total 7317.5 Output Total 3725 Balance 3592.5 Weight 117.934 kg Intake: IV 6217.5 Oral 1100 Output: Urine 3700 Estimated Blood Loss 25 Other: Urine Color Yellow Urine Appearance Clear Urine Odor Normal Comment unmeasured amount in toilet Stool Size Large Stool Characteristics Formed Emesis Description None Falls Risk Assessment History of Falls No History 08/20/24 23:54 Contributing Factors No Factors 08/20/24 23:54 Ambulatory Aids Independent 08/20/24 23:54 Tubes/Lines None 08/20/24 23:54 Gait Evaluation No gait disturbance 08/20/24 23:54 Cognition No cognitive impairment 08/20/24 23:54 Fall Total Score 0 08/20/24 23:54 Level of Risk Standard/Low Risk 08/20/24 23:54 Problems (Last Reviewed 08/20/24 @ 20:15 by Katie Bradshaw, AMPOULE SEALER) Choledocholithiasis (Acute) Elevated liver transaminase level (Acute) Notes 08/23/24 13:24 Nursing Notes by Sarah Christian Reviewed documentation by Isaura Kendall, student nurse and agree with findings. Sarah Christian, MSN, RNC-OB, clinical instructor Initialized on 08/23/24 13:24 - END OF NOTE 08/22/24 13:18 Nursing Notes by Thu Mcdaniel Nursing Note: Calex here to npick upn pt, report given, down and back to [facility]. Initialized on 08/22/24 13:18 - END OF NOTE 08/22/24 11:39 Nursing Notes by Thu Mcdaniel Nursing Note: Per Dr. Chan, made pt NPO to go to [facility] for ERCP, down and back. Transport being set up now. Pt has no fluids running, no oxygen, no cardiac monitoring. [facility] Endoscopy #[phone], surgery scheduler [phone]. Will notify surgery scheduler when transport has been verified. Initialized on 08/22/24 11:39 - END OF NOTE 08/22/24 10:58 Nursing Notes by Thu Mcdaniel Nursing Note: Nursing walked in and pt was attempting to shut off her IV pump. Discussed the danger of doing this with her. She denied doing it. Initialized on 08/22/24 10:58 - END OF NOTE v v v v v v v v v Sending and/or Receiving Nurses: Please use comment section below to note any information pertinent to the patient hand-off not included above. Information / Comments: Report received from: Fariha Franks RN @ 2700 (PACU)
[2024-08-24] MEDS: Acetaminophen 500 MG TAB 1000 MG PO (13:03)
--- NOTE | 2024-08-24 14:30 | PDOC.CMDIS ---
Date of service: 08/24/24 Time of Service: 14:31 LACE Index Scoring Tool Questions: Length of Stay (in days): 4 - 6 Was the patient admitted via the E.D.?: Yes E.D. Visits: 5 Answers: Total Score: 11 Risk of Readmission: High Risk Care Management Discharge Plan Reason for Hospitalization: ERCP and cholecystectomy Discharge Plan: Aruna is discharged home with no new services. She will f/u with her PCP and the surgeon. She stated she was feeling well and is ready to go. She will be transported in a private vehicle. Patient/Family Education Needs: Review of discharge instructions, activity, limitations, and discuss ask me 3. SDOH Health Related Social Needs: No Data to Display
--- NOTE | 2024-08-24 15:08 | W.ANESPOSTOP ---
Postoperative Evaluation Date, Time and Location Date Performed: 08/24/24 Time Performed: 11:00 Patient Location: PACU Vital Signs Most Recent Imported Vital Signs: Most Recent Vital Signs Temp Pulse Resp BP Pulse Ox 36.8 C 87 20 137/77 97 08/24/24 13:06 08/24/24 13:06 08/24/24 13:06 08/24/24 13:06 08/24/24 13:06 Pain Score Most Recent Pain Score: Most Recent Pain Score Pain Level [Thoracic Spine] 8 08/20/24 20:26 Pain Level 10 08/24/24 13:03 Assessment Mental Status: Awake (Alert & Oriented to Patient Baseline) Airway and Respiratory Function: Patent airway with normal (patient baseline) respiratory exam Cardiovascular Function: Hemodynamically Stable Hydration Status: Adequately Hydrated Nausea & Vomiting: No Nausea or Vomiting Pain: Pain is tolerable per patient Peripheral Nerve Block: Patient did not receive a nerve block Postoperative Comments:: Awake and alert, conversive. Episodes of being very calm and smiling to yelling that she is in pain. Baseline is challenging to assess. I believe pain is reasonably controlled and pt. denies nausea.
== END 2024-08-24 14:31 | disposition home or self-care (01) | DRG 418 ==
LOC: ER 22:12 → MS 23:54
PROVIDERS: Surgery; Admitting Provider Student in an Organized Health Care Education/Training Program; Emergency Provider Registered Nurse Emergency; PCP Nurse Practitioner Family; Visit Provider Student in an Organized Health Care Education/Training Program
PROC: 0FT44ZZ Resection of Gallbladder, Percutaneous Endoscopic Approach (ICD-10-PCS; CPT 47562; principal; 2024-08-24 07:55)
DX: K80.44 Calculus of bile duct with chronic cholecystitis without obstruction; Z68.42 Body mass index [BMI] 45.0-49.9, adult; R74.01 Elevation of levels of liver transaminase levels; F43.10 Post-traumatic stress disorder, unspecified; R51.9 Headache, unspecified; J45.909 Unspecified asthma, uncomplicated; F41.0 Panic disorder [episodic paroxysmal anxiety]; G47.00 Insomnia, unspecified; F32.A Depression, unspecified; G89.29 Other chronic pain; F90.9 Attention-deficit hyperactivity disorder, unspecified type; F17.210 Nicotine dependence, cigarettes, uncomplicated; R56.9 Unspecified convulsions; E66.9 Obesity, unspecified
CPT/HCPCS: 47562; 36415; 80053; 80076; 81025; 83690; 85027; 94640; 96365; 99285; 74177; 74181; 81003; 81015; 85025; 88304; 94664; J0131; J1100; J1171; J1644; J1790; J1885; J2250; J2270; J2405; J2543; J2704; J3010; J3490

== ENCOUNTER 2024-08-27 17:22 | Emergency (ER) | payer MEDICAID, SELFPAY ==
[2024-08-27 17:17] VITALS: BP 132/96; PULSE 102; RESP 20; TEMP 36.6; O2SAT 98
[2024-08-27 17:45] VITALS: PULSE 92; O2SAT 97
[2024-08-27 17:50] VITALS: PULSE 81; O2SAT 98
[2024-08-27 18:00] VITALS: PULSE 83; O2SAT 93
[2024-08-27 18:10] VITALS: PULSE 89; O2SAT 98
[2024-08-27 18:23] LABS: Bilirubin Negative (Negative); Blood Moderate (Negative); Clarity Clear (Clear); Glucose Negative (Negative); Ketones Negative (Negative); Leukocyte Esterase Negative (Negative); Nitrite Negative (Negative); Specific Gravity 1.025 (1.005-1.025); Urobilinogen 0.2 mg/dL (Up to 0.2)
[2024-08-27 18:33] LABS: Bacteria Negative HPF (Negative); C & S Indicated? No; Casts Negative LPF (Negative); Crystals Negative HPF (Negative); Epithelial Cells Moderate HPF (Negative); Mucus Negative (Negative); RBC 0-2 HPF (0-2); WBC Negative HPF (0-5)
[2024-08-27] MEDS: LORazepam 2 MG/ML VIAL 1 MG IVP (18:40)
[2024-08-27 18:58] LABS: Abs Immature Grans 0.03 10^3/uL (0.0-0.06); Absolute Basophil Count 0.02 10^3/uL (0.0-0.2); Absolute Eosinophil Count 0.15 10^3/uL (0.0-0.7); Absolute Lymphocyte Count 2.87 10^3/uL (1.2-3.4); Absolute Neutrophil Count 5.56 10^3/uL (1.2-6.7); Basophils % 0.2 %; Eosinophils % 1.6 %; HGB 13.5 g/dL (11.2-15.7); Immature Grans % 0.3 %; Lymphocytes % 31.4 %; MCH 28.7 pg (27.0-33.0); MCHC 32.9 % (32.0-36.0); MCV 87 fL (80-95); MPV 9.7 fL (8.0-11.0); Monocytes % 5.5 %; Platelet Count 271 10^3/uL (130-400); RBC 4.71 10^6/uL (3.93-5.22); RDW 13.7 % (11.7-14.6); RDW-SD 42.9 fL; WBC 9.13 10^3/uL (4.4-10.8)
[2024-08-27 19:20] LABS: ALT 119 U/L (14-59); AST 27 U/L (15-37); Albumin 3.7 g/dL (3.4-5.0); Alkaline Phosphatase 130 U/L (46-116); Anion Gap 9.1 mmol/L (3-11); BUN 11 mg/dL (7-18); Bilirubin, Total 0.5 mg/dL (0.2-1.0); CO2 26.9 mmol/L (21.0-32.0); CREATININE 0.8 mg/dL (0.55-1.02); Calcium 9.3 mg/dL (8.5-10.1); Chloride 105 mmol/L (98-107); Estimated GFR 102.86 (mL/min/1.73m2); Glucose 86 mg/dL (74-106); Potassium 3.4 mmol/L (3.5-5.1); Sodium 141 mmol/L (136-145); TSH (W/Ref FT4) 1.92 uIU/mL (0.36-3.74); Total Protein 7.6 g/dL (6.4-8.2)
[2024-08-27 19:49] VITALS: BP 125/62; PULSE 89; RESP 18; O2SAT 96
--- NOTE | 2024-08-27 21:52 | W.ED.GENAD ---
Discharge Plan Disposition Patient Disposition: Home Condition: Stable Discharge Details Clinical Impression: Convulsion, psychomotor Primary Care Provider: Kristopher Perez ED Provider: Yahaira Chou Home Meds and New Rx's Prescriptions: New potassium chloride 20 mEq tablet extended release 20 meq PO DAILY Qty: 5 0RF Continued Nexplanon 68 mg implant 1 implant subdermal ONCE Rx Instructions: as a single dose melatonin 3 mg capsule 3 mg PO DAILY PRN (Reason: sleep) Qty: 90 6RF ibuprofen 800 mg tablet 800 mg PO Q8H PRN (Reason: fever or pain) sertraline 100 mg tablet 150 mg PO DAILY Qty: 135 4RF fluticasone propion-salmeterol [Advair HFA] 230-21 mcg/actuation HFA aerosol inhaler 2 puff inhalation BID Qty: 12 2RF aripiprazole 2 mg tablet 2 mg PO DAILY Qty: 90 0RF acetaminophen 325 MG tablet 650 mg PO Q4H PRN Qty: 60 loratadine [Allergy Relief (loratadine)] 10 mg tablet 10 mg PO DAILY Qty: 90 4RF albuterol sulfate 90 mcg/actuation HFA aerosol inhaler 2 inh inhalation Q4H PRN (Reason: shortness of breath or wheezing) Qty: 18 0RF trazodone 50 mg tablet 50 mg PO HS guanfacine 1 mg tablet extended release 24 hr 1 mg PO QPM hydroxyzine HCl 25 mg tablet 25 mg PO DAILY PRN tramadol 50 mg tablet 50 mg PO Q8H PRNQty: 9 0RF Rx Instructions: Take 1 tablet by mouth up to every 8 hours if needed for severe pain after surgery. Discharge Instructions Instructions: Seizures, Adult ED Additional Instructions: no driving a vehicle, no ladder usage or taking baths/swimming follow-up with your doctor for an EEG take potassium as prescribed dont take the hydroxyzine within 8 hours of the potassium pills return earlier with new or worsening complaints Referrals: Kristopher Perez, ENVIRONMENTAL ENGINEERING AIDE [Primary Care Provider] - Discharge Data Discharge Date/Time-TO BE ENTERED AT DEPARTURE: 08/27/24 19:52 HPI General Date/Time Provider Initiated Documentation: 08/27/24 17:33. HPI Narrative: 29-year-old female presents with fluttering in bilateral hands and lower extremities with convulsions, describing them as seizures. Previously evaluated on 08/06/2024. No episodes between visits. Event witnessed by partner, no loss of consciousness, remembers entire event. Lowered herself to the ground as eyes rolled back. Denies , head injury, new medications, auditory/visual hallucinations, fever, chills, or neck pain. Missed EEG due to cholecystectomy at [facility]. Related Data Home Medications ?Medication ?Instructions ?Recorded ?Confirmed acetaminophen 325 mg tablet 650 mg PO Q4H PRN #60 tab-caps 01/27/16 08/27/24 melatonin 3 mg capsule 3 mg PO DAILY PRN sleep #90 caps 11/07/19 08/27/24 loratadine 10 mg tablet (Allergy 10 mg PO DAILY #90 tabs 08/11/21 08/27/24 Relief (loratadine)) ibuprofen 800 mg tablet 800 mg PO Q8H PRN fever or pain 12/27/21 08/27/24 albuterol sulfate 90 mcg/actuation 2 inh inhalation Q4H PRN shortness 01/20/23 08/27/24 aerosol inhaler of breath or wheezing #18 grams etonogestrel 68 mg subdermal 1 implant subdermal ONCE 07/30/24 08/27/24 implant (Nexplanon) aripiprazole 2 mg tablet 2 mg PO DAILY #90 tabs 08/12/24 08/27/24 fluticasone propionate 230 2 puff inhalation BID #12 grams 08/12/24 08/27/24 mcg-salmeterol 21 mcg/actuation HFA inhaler (Advair HFA) sertraline 100 mg tablet 150 mg (1.5 x 100 mg) PO DAILY 08/12/24 08/27/24 #135 tabs guanfacine 1 mg tablet,extended 1 mg PO QPM 08/21/24 08/27/24 release 24 hr hydroxyzine HCl 25 mg tablet 25 mg PO DAILY PRN 08/21/24 08/27/24 trazodone 50 mg tablet 50 mg PO HS 08/21/24 08/27/24 tramadol 50 mg tablet 50 mg PO Q8H PRN #9 tabs 08/24/24 08/27/24 potassium chloride 20 mEq 20 meq PO DAILY #5 tabs 08/27/24 tablet,extended release Previous Rx's ?Medication ?Instructions ?Recorded melatonin 3 mg capsule 3 mg PO DAILY PRN sleep #90 caps 11/07/19 loratadine 10 mg tablet (Allergy 10 mg PO DAILY #90 tabs 08/11/21 Relief (loratadine)) albuterol sulfate 90 mcg/actuation 2 inh inhalation Q4H PRN shortness 01/20/23 aerosol inhaler of breath or wheezing #18 grams aripiprazole 2 mg tablet 2 mg PO DAILY #90 tabs 08/12/24 fluticasone propionate 230 2 puff inhalation BID #12 grams 08/12/24 mcg-salmeterol 21 mcg/actuation HFA inhaler (Advair HFA) sertraline 100 mg tablet 150 mg (1.5 x 100 mg) PO DAILY 08/12/24 #135 tabs tramadol 50 mg tablet 50 mg PO Q8H PRN #9 tabs 08/24/24 potassium chloride 20 mEq 20 meq PO DAILY #5 tabs 08/27/24 tablet,extended release Allergies Allergy/AdvReac Type Severity Reaction Status Date / Time No Known Allergies Allergy Verified 08/27/24 17:24 General Stated Complaint: Seizure DAVID: 3 Exam Narrative Exam Narrative: General Appearance: Alert and oriented x4, no acute distress. Vital signs: Within normal limits. HEENT: Within normal limits. Respiratory: Within normal limits. Cardiovascular: Cardiac rate and rhythm regular. Skin: No rashes, lesions, or trauma. Neurological: Cranial nerves II-XII intact, negative dxgobp-pryx-wpcpdp, negative bxtd-pu-hjmn, follows commands. No meningismus or cervical spine tenderness. Course Vital Signs Vital signs: Vital Signs Temperature 36.6 C 08/27/24 17:17 Pulse 102 H 08/27/24 17:17 Respiratory Rate 20 08/27/24 17:17 Blood Pressure 132/96 H 08/27/24 17:17 Pulse Oximetry 98 08/27/24 17:17 Temperature 36.6 C 08/27/24 17:17 Pulse 89 08/27/24 19:49 Respiratory Rate 18 08/27/24 19:49 Respiratory Effort Normal 08/27/24 17:33 Respiratory Depth Normal 08/27/24 17:33 Respiratory Pattern Normal 08/27/24 17:33 Blood Pressure 125/62 08/27/24 19:49 Blood Pressure Position Sitting 08/27/24 17:17 Pulse Oximetry 96 08/27/24 19:49 Oxygen Delivery Method Room Air 08/27/24 19:49 Oxygen Flow Rate 0 08/27/24 19:49 Pain Level 0 08/27/24 19:49 Lab/Test Results Lab/Test Results: Laboratory Tests Range/Units 08/27/24 08/27/24 18:16 18:45 WBC (4.4-10.8) 10^3/uL 9.13 RBC (3.93-5.22) 10^6/uL 4.71 Hgb (11.2-15.7) g/dL 13.5 Hct (36.0-46.0) % 41.0 MCV (80-95) fL 87 MCH (27.0-33.0) pg 28.7 MCHC (32.0-36.0) % 32.9 RDW (11.7-14.6) % 13.7 Plt Count (130-400) 10^3/uL 271 MPV (8.0-11.0) fL 9.7 Immature Gran % % 0.3 Neutrophils % % 61.0 Lymphocytes % % 31.4 Monocytes % % 5.5 Eosinophils % % 1.6 Basophils % % 0.2 Nucleated RBC % (0.0-0.3) % 0.0 Absolute Neutrophils (1.2-6.7) 10^3/uL 5.56 Absolute Lymphocytes (1.2-3.4) 10^3/uL 2.87 Absolute Monocytes (0.1-0.8) 10^3/uL 0.50 Absolute Eosinophils (0.0-0.7) 10^3/uL 0.15 Absolute Basophils (0.0-0.2) 10^3/uL 0.02 Sodium (136-145) mmol/L 141 Potassium (3.5-5.1) mmol/L 3.4 L Chloride (98-107) mmol/L 105 Carbon Dioxide (21.0-32.0) mmol/L 26.9 Anion Gap (3-11) mmol/L 9.1 BUN (7-18) mg/dL 11 Creatinine (0.55-1.02) mg/dL 0.8 Est GFR (CKD-EPI 2020) (mL/min/1.73m2) 102.86 Glucose (74-106) mg/dL 86 Calcium (8.5-10.1) mg/dL 9.3 Magnesium (1.8-2.4) mg/dL 2.0 Total Bilirubin (0.2-1.0) mg/dL 0.5 AST (15-37) U/L 27 ALT (14-59) U/L 119 H Alkaline Phosphatase (46-116) U/L 130 H Total Protein (6.4-8.2) g/dL 7.6 Albumin (3.4-5.0) g/dL 3.7 TSH (0.36-3.74) uIU/mL 1.92 Urine Color (Yellow) Yellow Urine Clarity (Clear) Clear Urine pH (5-8) 7.0 Ur Specific [place] (1.005-1.025) 1.025 Urine Protein (Neg-Trace) mg/dL Negative Urine Ketones (Negative) mg/dL Negative Urine Blood (Negative) Moderate H Urine Nitrite (Negative) Negative Urine Bilirubin (Negative) Negative Urine Urobilinogen (Up to 0.2) mg/dL 0.2 Ur Leukocyte Esterase (Negative) Negative Urine RBC (0-2) HPF 0-2 Urine WBC (0-5) HPF Negative Ur Epithelial Cells (Negative) HPF Moderate Urine Crystals (Negative) HPF Negative Urine Bacteria (Negative) HPF Negative Urine Casts (Negative) LPF Negative Urine Mucus (Negative) Negative Ur Culture Indicated? No Urine Glucose (Negative) mg/dL Negative POC- Test(urine) Negative Medical Decision Making Magnesium level 1.6. CT head from 08/03/2024: no acute abnormality. Negative test. Initial Assessment: 29-year-old female with fluttering in bilateral hands and lower extremities with convulsions, described as 'seizures.' No loss of consciousness, remembers events, no new medications, denies and head injury. Differential Diagnosis: - Nonepileptiform seizures: Suspected based on symptoms and history. Plan to follow up with primary care or neurology for EEG. No indication for antiepileptics at this time. ED Course: - Reviewed CT head from 08/06/2024, no acute abnormalities. - Diagnostic labs reassuring except magnesium 1.6. - Given 1 mg Ativan, symptoms improved. - Observed for 4 hours, remained alert and oriented. Final Assessment: Patient likely experiencing nonepileptiform seizures. Symptoms improved with Ativan. Diagnostic labs and imaging reassuring. Recommended follow-up with primary care or neurology for EEG. Clinical Impression: - Nonepileptiform seizures Disposition: - Discharge - Follow-Up: Follow up with primary care or neurology for EEG. Patient Education: Provided magnesium supplementation for home use. MDM Components Evaluation: - Number of Differential Diagnoses or Management Options: Nonepileptiform seizures - Amount and Complexity of Data Reviewed: CT head, diagnostic labs - Risk of Complication and Morbidity or Mortality: Low risk based on current assessment and treatment plan. 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 Has residential case manager Barry Umbilical abnormality (Acute 06/29/16) Insomnia (Acute 07/25/17) Increased BMI (body mass index) (Chronic 08/24/17) Depressive disorder (Chronic 06/21/13) Psychiatric consult 02/23 Chronic midline low back pain without sciatica (Chronic 08/24/17) Attention deficit hyperactivity disorder (Chronic 10/31/12) Medical History Nexplanon in place Original 07/07/21 Replaced 07/30/24 Elevated BP without diagnosis of hypertension Discomfort of right ear Hx of migraines Surgical History Tonsillectomy and adenoidectomy 2002 Patent Ductus Arteriosus closure Family History Father Diabetes Maternal Grandfather , age 41 Brain cancer Mother Depression Brother , born at 5 months No problems noted. Daughter No problems noted. Paternal Grandfather No problems noted. Maternal Grandmother , age 74 Diabetes Heart disease Cervix cancer Stroke Brain cancer Lymph node cancer Paternal Grandmother No problems noted. Social History Smoking/Tobacco Use Status: Current-Occasional Tobacco Type: cigarettes Tobacco: How many years used: 9 Quit status: has quit before Second Hand Exposure: Yes Smoking risk assessment performed?: Yes Alcohol Intake: current Alcohol Intake frequency: holidays/special occasions only Counseling provided: provider counseling Details: Occasional binge drinking - counselled Drug use: Occasionally Substance use type: marijuana Details: smoke Adopted: No Household members: family and other Details: lives with mother. Has supervised visitation with her son. No contact daugh Housing: apartment Number of Children: 2 Do you need help understanding health information?: Never current occupation: Disabled. Pets and animals: Yes Pets and animals: dog(s) Sexually active: Yes Do you think of yourself as: straight/heterosexual Current gender identity: female What is your relationship status?: never How often do you talk on the phone with friends or family?: never How often do you get together with friends or relatives?: once per week How often do you attend yazidism or latter day services?: 1-3 times per year Do you belong to any clubs or organized social groups?: no Panel score (0-1 are the most socially isolated patients): 0 Duration: < 15 minutes/day Frequency: 1-2 times per week Evangelina/Baptist: No preference Seatbelt use: sometimes Helmet use: No Drive intox or ride w/intox local hazmat driver: No Do you feel safe at home: Yes Do you feel safe in your relationship?: Yes History History 3 Para 2 Hx # Term Pregnancies 0 Multiple births 0 Hx # Pregnancies 3 Ectopic pregnancies 0 AB induced 0 Hx Number of Living Children 2 AB spontaneous 0 Past Pregnancies Del. Date GA/Weeks # Preg Succ Route Wgt Sex Labor Lgth Anesthesia Location [facility] 07/20/16 34 vaginal 2494.758 g Female [facility] 05/06/18 34 No vaginal 2148.894 g Male [facility] [place] 07/06/21 38 No vaginal 2806.603 g Female Candida Vásquez Delivery Date: 07/20/16 Last Updated by: Tiff Nicolas PPROM, IOL with Pitocin, pt does not have custody. Delivery Date: 05/06/18 Last Updated by: So Miller M.D. Does not have custody.
== END 2024-08-27 19:52 | disposition home or self-care (01) ==
PROVIDERS: Emergency Provider Physician Assistant; PCP Nurse Practitioner Family
DX: G40.109 Localization-related (focal) (partial) symptomatic epilepsy and epileptic syndromes with simple partial seizures, not intractable, without status epilepticus (principal); F17.210 Nicotine dependence, cigarettes, uncomplicated
CPT/HCPCS: 36415; 80053; 81025; 96374; 99284; 81003; 81015; 83735; 84443; 85025; J2060

== ENCOUNTER 2024-09-17 13:54 | Outpatient (REF) | payer MEDICAID, SELFPAY ==
--- NOTE | 2024-09-17 13:30 | PAPFT_PTH ---
PATIENT: Aruna Friedman LOC: [facility] U#:[id number] AGE/SX: 29/F ROOM: RE09/17/[address]: Candida Vásquez DO : 1995 BED: DIS: 09/17/2024 SPEC #: [id number] RECD: 09/17/24 17:23 STATUS: MARLENY REQ #: [id number] GERALDINE: 09/17/24 13:[address]: Candida Vásquez DEPT: REPLACED BY [facility] Cytology RECD BY: Yahaira Paulino ENTERED: 09/17/24 17:23 SP TYPE: PAPFT OTHR DR: Kristopher Mishra DNP Tissues: 1 - CX/ENDOCX FOR PAP SMEARS Procedures: PAP THIN PREP/[facility]VM Screening HPV DNA PROBE Comments: [id number] (HPV 16 & 18/45)
== END 2024-09-17 13:55 | disposition home or self-care (01) ==
LOC: LBN 13:54
PROVIDERS: PCP Nurse Practitioner Family; Visit Provider Obstetrics & Gynecology
DX: Z12.4 Encounter for screening for malignant neoplasm of cervix (principal)
CPT/HCPCS: 88142; 87624

== ENCOUNTER 2025-01-09 02:36 | Outpatient (CLI) | payer MEDICAID, SELFPAY ==
[2025-01-09 10:42] LABS: Abs Immature Grans 0.02 10^3/uL (0.0-0.06); HCT 40.9 % (36.0-46.0); HGB 13.4 g/dL (11.2-15.7); Immature Grans % 0.3 %; MCH 28.2 pg (27.0-33.0); MCHC 32.8 % (32.0-36.0); MCV 86 fL (80-95); MPV 9.9 fL (8.0-11.0); Platelet Count 263 10^3/uL (130-400); RBC 4.75 10^6/uL (3.93-5.22); RDW 13.3 % (11.7-14.6); RDW-SD 41.5 fL; WBC 7.41 10^3/uL (4.4-10.8)
[2025-01-09 10:55] LABS: Hemoglobin A1C 5.2 % (<5.7)
[2025-01-09 11:55] LABS: Vitamin B12 388 pg/mL (193-986)
== END 2025-01-09 02:37 | disposition home or self-care (01) ==
LOC: LBO 02:36
PROVIDERS: Visit Provider Psychiatry & Neurology Psychiatry
DX: Z79.899 Other long term (current) drug therapy (principal)
CPT/HCPCS: 36415; 80164; 82607; 83036; 85025

== ENCOUNTER 2025-02-07 08:01 | Outpatient (CLI) | payer MEDICAID, SELFPAY ==
--- NOTE | 2025-02-11 17:00 | PDOC.EEG ---
Neurology EEG EEG: [facility] Department of Neurology LONG-TERM AMBULATORY EEG REPORT Date of Recordin02/07/25 at 08:51:02 to 02/09/25 at 07:16:09 Interpreting Physician: Dr. Viky Chavira PCP/Referring Provider: Kristopher Alan NP Reason for study: Aruna Friedman is a 29 year-old with seizure like events. Current Medications: Home Medications ?Medication ?Instructions ?Recorded ?Confirmed ?Type acetaminophen 325 mg tablet 650 mg PO Q4H PRN #60 tab-caps 01/27/16 01/21/25 History melatonin 3 mg capsule 3 mg PO DAILY PRN sleep #90 caps 11/07/19 01/21/25 Rx loratadine 10 mg tablet (Allergy 10 mg PO DAILY #90 tabs 08/11/21 01/21/25 Rx Relief (loratadine)) ibuprofen 800 mg tablet 800 mg PO Q8H PRN fever or pain 12/27/21 01/21/25 History albuterol sulfate 90 mcg/actuation 2 inh inhalation Q4H PRN shortness 01/20/23 01/21/25 Rx aerosol inhaler of breath or wheezing #18 grams etonogestrel 68 mg subdermal 1 implant subdermal ONCE 07/30/24 01/21/25 History implant (Nexplanon) fluticasone propionate 230 2 puff inhalation BID #12 grams 08/12/24 01/21/25 Rx mcg-salmeterol 21 mcg/actuation HFA inhaler (Advair HFA) sertraline 100 mg tablet 150 mg (1.5 x 100 mg) PO DAILY 08/12/24 01/21/25 Rx #135 tabs guanfacine 1 mg tablet,extended 1 mg PO QPM 08/21/24 01/21/25 History release 24 hr potassium chloride 20 mEq 20 meq PO DAILY #5 tabs 08/27/24 01/21/25 Rx tablet,extended release hydroxyzine HCl 25 mg tablet 25 mg PO BID PRN anxiety #60 tabs 09/02/24 01/21/25 Rx trazodone 100 mg tablet 100 mg PO HS #90 tabs 09/19/24 01/21/25 Rx aripiprazole 5 mg tablet 5 mg PO DAILY #30 tabs 11/19/24 01/21/25 Rx divalproex 250 mg tablet,delayed 250 mg PO BID 01/21/25 01/21/25 History release METHODS: An 18-channel digitized electroencephalogram was recorded in the ambulatory setting with video. The 10/20 international system of electrode placement was used and bipolar and referential electrode montages were recorded. In addition to EEG the patient was monitored for EKG and by video. Activation procedures of photic stimulation and hyperventilation were performed if applicable. The duration of the recording was ~46.5 hours. DESCRIPTION OF EEG: Waking background activity: During maximal wakefulness a 10-Hz posterior background rhythm was present which was well-modulated, symmetrical, reactive to eye opening, and of moderate voltage. Faster frequencies were present in the bilateral anterior head regions. There was a normal anterior-posterior voltage gradient. Drowsy and sleeping background activity: During drowsiness, there was attenuation of the posterior dominant background rhythm and vertex waves. Normal stage II and III sleep was present with symmetrical sleep spindles, K-complexes, and vertex waves with slowing of the background rhythm to delta/theta frequencies. REM sleep manifested by rapid lateral eye movements and faster background rhythms was recorded. Arousal was unremarkable. Interictal abnormalities: none. Ictal findings: Event #1 on 02/07/25 at 14:58:57 -Clinical manifestations: headache and shaking x 10min -EEG findings: Normal awake background with some muscle and motion artifact. Patient was not visible in the video. Event #2 on 02/08/25 at 18:02:49 -Clinical manifestations: headache and shaking x 10min -EEG findings: Normal awake background with some muscle and motion artifact. Patient was not visible in the video. Event #3 on 02/08/25 at 18:56:11 -Clinical manifestations: headache and shaking x 10min -EEG findings: Normal awake background with some muscle and motion artifact. Patient was not visible in the video. Event #4 on 02/09/25 at 03:47:35 -Clinical manifestations: headache and shaking x 10min -EEG findings: Normal awake background with some muscle and motion artifact. Patient was not visible in the video. Activating Procedures: Photic stimulation was performed which produced a symmetrical posterior driving response at various flash frequencies. Hyperventilation was performed with moderate effort and produced no physiological slowing of the background. EKG: EKG revealed normal sinus rhythm. INTERPRETATION: This long-term EEG is normal during the awake and sleep states as well as during the activation procedures. Four events captured as above manifested by headache and shaking not associated with any EEG changes or abnormalities. PRIOR EEG: none CLINICAL CORRELATION: No focal regions of cerebral dysfunction or epileptiform activity was present. 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 Clinical correlation is advised. Viky Chavira MD Date of service: 01/07/25
== END 2025-02-07 08:02 | disposition home or self-care (01) ==
LOC: RT 08:02
PROVIDERS: PCP Nurse Practitioner Family; Visit Provider Psychiatry & Neurology Neurology
DX: R40.4 Transient alteration of awareness (principal)
CPT/HCPCS: 95714